=== PATIENT | male | born 1935 | race Caucasian/White ===

== ENCOUNTER 2017-01-05 07:38 | Observation (INO) | payer OTHER ==
[2017-01-05] VITALS (8 sets, daily range): BP systolic 126–154; BP diastolic 66–74; PULSE 61–85; TEMP 36.7–37; O2SAT 95–99; Ht 177.8 cm; Wt 94.3 kg
[~2017-01-05] VITALS: Ht 177.8 cm; Wt 94.3 kg
[~2017-01-05 07:38] MED LIST: AMLO10TA2 PO; ASPCH81 PO; ATOR-24 PO; CHOL100010 PO; DONE10TA12 PO; FELO5TAB PO; LEVO50TA6 PO; LISI-725 PO; NTRGSL/4 UT; TAMS0.4C38 PO; TPRSR25 PO
[2017-01-05] MEDS ORDERED: ASPIRIN 81 MG CHEW PO STA (08:05)
[2017-01-05] MEDS ORDERED: NITROGLYCERIN 0.4 MG SL PER TAB CHARGE SL PRN ×3 (08:15→13:45)
[2017-01-05 08:22] LABS: BASO % 0.9 %; BASO ABS # 0.06 K/uL (0-0.2); COMPLETE YES; HEMATOCRIT 42.1 % (42-52); MEAN CELL VOLUME 90.3 fL (80-100); MEAN CORPUSCULAR HEMOGLOBIN 30.7 pg (25-34); MEAN PLATELET VOLUME 9.5 fL (7.4-10.4); MONO % 10.6 %; NEUT % 51.5 %; PLATELET COUNT 196 K/uL (130-400); RED BLOOD COUNT 4.66 M/uL (4.7-6.1); WHITE BLOOD COUNT 6.44 K/uL (4.8-10.8)
--- NOTE | 2017-01-05 08:27 | DIAGNOSTIC IMAGING REPORT ---
CHEST ONE VIEW PORTABLE CLINICAL HISTORY: CHEST PAIN dyspnea COMPARISON STUDY: 07/22/2015 FINDINGS: Small hilar hernia. Bipolar cardiac pacemaker. Lungs are clear. Diaphragms smooth. IMPRESSION: No acute process. Electronically signed by: Tristen Jerome M.D. 01/05/2017 8:26 AM Dictated Date/Time: 01/05/2017 8:25 AM
[2017-01-05] MEDS ORDERED: ONDANSETRON INJ 2 MG/ML 2 ML VIAL IV STA ×2 (08:41→09:41)
[2017-01-05 08:43] LABS: ALT/SGPT 45 U/L (12-78); BLOOD UREA NITROGEN 14 mg/dl (7-18); BUN/CREATININE RATIO 10.6 (10-20); CARBON DIOXIDE 27 mmol/L (21-32); CHLORIDE 108 mmol/L (98-107); GLUCOSE 147 mg/dl (70-99); POTASSIUM 4.1 mmol/L (3.5-5.1); SODIUM 141 mmol/L (136-145)
[2017-01-05 08:45] LABS: ALKALINE PHOSPHATASE 99 U/L (45-117); AST/SGOT 31 U/L (15-37); CKMB/CK RATIO 1.7 (0-3.0)
[2017-01-05] MEDS ORDERED: FENTANYL CITRATE INJ 50 MCG/1 ML 2 ML VIAL IV ONE (08:45)
[2017-01-05 08:47] LABS: PROTHROMBIN TIME (PATIENT) 10.5 SECONDS (9.0-12.0)
[2017-01-05] MEDS ORDERED: ASPI81TA28 PO (08:50)
[2017-01-05] MEDS ORDERED: MEMA10TA PO (08:50)
[2017-01-05] MEDS ORDERED: CHOL100010 PO (08:50)
[2017-01-05] MEDS ORDERED: METO25TA3 PO (08:50)
[2017-01-05] MEDS ORDERED: LEVE250T PO (08:50)
[2017-01-05] MEDS ORDERED: ACETAMINOPHEN 325 MG TAB PO PRN (11:30)
[2017-01-05] MEDS ORDERED: ONDANSETRON INJ 2 MG/ML 2 ML VIAL IV PRN (11:30)
[2017-01-05] MEDS ORDERED: FINA5TAB PO (11:40)
[2017-01-05] MEDS ORDERED: TAMS0.4C38 PO (11:40)
--- NOTE | 2017-01-05 12:45 | DIAGNOSTIC IMAGING REPORT ---
Venous Doppler left leg LEFT VENOUS DOPP LOWER EXT UNILAT CLINICAL HISTORY: r/o DVT pain. Edema. TECHNIQUE: Venous Doppler COMPARISON STUDY: None FINDINGS: Normal study IMPRESSION: Normal study Electronically signed by: Tristen Jerome M.D. 01/05/2017 12:43 PM Dictated Date/Time: 01/05/2017 12:43 PM
[2017-01-05] MEDS ORDERED: IV FLUIDS COMPLETED PRN (13:15)
[2017-01-05] MEDS: HEPARIN SOD 5000 UNIT/0.5 ML CARP SQ SCH ×2 (14:13→21:11)
--- NOTE | 2017-01-05 14:58 | DIAGNOSTIC IMAGING REPORT ---
NUCLEAR MEDICINE VENTILATION/PERFUSION SCAN CLINICAL HISTORY: Chest pain COMPARISON: Dyspnea TECHNIQUE: For the ventilation portion of this exam, 29.8 mCi of DTPA was inhaled at 220. Immediately following inhalation, imaging of the chest was carried out in the anterior, posterior, left lateral, right lateral, LPO, RPO, [place] and JUDD projections. For the perfusion portion of exam, 5.5 mCi of technetium 99m MAA was injected IV at 242. Immediately following injection, imaging of the chest was carried out in the same projections. FINDINGS: Subtle in homogeneity of perfusion of both hemithoraces. Similar in homogeneity of the aerosol component of the study. No major ventilation perfusion mismatch. IMPRESSION: Low probability of pulmonary embolus Electronically signed by: Tristen Jerome M.D. 01/05/2017 2:56 PM Dictated Date/Time: 01/05/2017 2:55 PM
[2017-01-05] MEDS: NITROGLYCERIN OINT 2% 1GM PACKET EXT SCH ×2 (15:23→20:02)
--- NOTE | 2017-01-05 15:31 | CARDIOLOGY CONSULTATION ---
DATE OF CONSULTATION: 01/05/2017 DATE OF CONSULTATION: 01/05/2017. REFERRING PHYSICIAN: Khadra Day PA-C. PRIMARY CARE PHYSICIAN: Dr. Jordana Hopkins. INDICATIONS: Chest pain. HISTORY OF PRESENT ILLNESS: The patient is an 81-year-old male with cardiac history. 1. Atherosclerotic coronary artery disease with prior coronary interventions of the right coronary artery with subsequent followup notable for chronic right coronary occlusion, moderate diffuse coronary atherosclerosis by remote cardiac catheterization. 2. 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 3. Stable class 1-2 angina pectoris. 4. Hypertension. 5. Hyperlipidemia. 6. 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 The patient presents now accompanied by his who noted patient had awakened him from sleep this morning complaining of chest pressure, pain and discomfort. Symptoms were sharp in the left axillary area but radiated to the shoulder and throat. In light of complaints, she was referred for ER evaluation. The patient notes low grade chart pain currently. He notes in the Emergency Room initial EKGs revealed no acute changes. Initial point of care troponin was negative. The nitroglycerin and initial therapies were unhelpful in managing symptoms, he received a single dose of fentanyl shortly afterwards became acutely hypotensive and diaphoretic. Symptoms then passed, he feels currently fine with a mild jabbing pain in his left shoulder. He has little recollection of the pain this morning though was able to get information from . Notes no melena, hematochezia, dysuria or hematuria. Notes no headache or visual changes. He is being managed for presumed seizure disorder, most recently begun on Keppra as an outpatient on 11/29/2016. Notes no recent travel in the last 1-2 months. Notes no fevers, chills or productive cough. Has had some mild increase in lower extremity edema. Appetite and weight are stable. Blood pressures have been running higher. It was high at home during symptoms this morning. REVIEW OF SYSTEMS: Otherwise negative. ALLERGIES: IODINE CONTRAST. MEDICATIONS: Prior to hospitalization were amlodipine 5 mg at bedtime, aspirin 81 mg p.o. daily, atorvastatin 40 daily, vitamin D 1000 units at bedtime, Aricept 10 mg at bedtime, those start 5 mg at bedtime, Keppra 500 mg b.i.d., levothyroxine 50 mcg p.o. every day, Zestril 20 mg p.o. at bedtime, Namenda 10 mg b.i.d., metoprolol succinate 25 mg at bedtime, Flomax 0.4 mg at bedtime. PAST SURGICAL HISTORY: Notable for inguinal hernia repair, pacemaker insertion as described. FAMILY HISTORY: Notable for heart disease in mother, stroke in father. 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 PHYSICAL EXAMINATION: GENERAL: The patient is a pleasant, age appropriate male currently denying any acute distress. VITAL SIGNS: Heart rate is 86, blood pressure is 147/72. HEAD, EYES, EARS, NOSE, AND THROAT: Normocephalic, atraumatic. NECK: Thick neck, but there is no jugular venous distention. No carotid bruits. LUNGS: Clear to auscultation. CARDIOVASCULAR EXAMINATION: Regular with normal S1, S2. There is no audible murmur, gallop or rub. ABDOMEN: Soft, nontender. There is no palpable hepatosplenomegaly. There is no hepatojugular reflux. EXTREMITIES: Without cyanosis or clubbing. There is no peripheral edema. NEUROLOGIC: The patient is pleasant, answering questions appropriately, though has little recollection about complete details recently. LABORATORY DATA: Sodium is 141, potassium is 4.1, chloride is 108, bicarbonate is 27, BUN is 14, creatinine is 1.3, glucose is 147. Troponin I was negative on 2 serial testings at 8:14 and 10:28. Albumin is 3.7. Lipase is mildly elevated at 4.17. D-dimer is elevated at 1570. Chest x-ray reveals no infiltrate or edema. Initial lower extremity ultrasound was free of thrombus. DATA: EKG on initial presentation demonstrates atrial paced rhythm with T-wave inversion in anterolateral leads, significantly abnormal on initial EKG and serial EKGs though similar to prior outpatient tracings not reflecting acute changes. IMPRESSION: An 81-year-old male with known history of diffuse coronary disease and prior chronic right coronary occlusion by remote cardiac catheterization and history stable angina pectoris, hypertension. Past symptomatic bradycardia with pacemaker in place as well as recently diagnosed seizure disorder superimposed on mild dementia. The patient presents now after chest pain, pressure, awakening from sleep this morning. Symptoms were associated with hypertension at home, though blood pressures have improved now. He did receive a dose of fentanyl for symptoms in the ER with profound hypotension and response. He is on a substantial amount of medications administered nocturnally including Aricept, Proscar, Keppra, Namenda, tamsulosin. PLAN: Will be to continue current medications with the addition of topical nitrates, serial enzymes have been ordered as well as echocardiogram which will be reviewed. Currently, the patient appears asymptomatic other than a sharp jab in the left shoulder with movement. Ongoing workup and process for possible thromboembolic concerns. Will follow patient in the hospital.
[2017-01-05 15:43] LABS: CKMB/CK RATIO 1.6 (0-3.0)
--- NOTE | 2017-01-05 15:44 | EMERGENCY ROOM VISIT NOTE ---
History Report prepared by Ced: Simon Gardner Under the Supervision of: Dr. Edmund Cage M.D. First contact with patient: 07:48 Chief Complaint: BACK PAIN Stated Complaint: PAIN IN SIDE/SHOULDER, HIGH BLOOD PRESSURE History of Present Illness The patient is an 81 year old male who presents to the Emergency Room with complaints of constant left side pain starting this morning which woke him up. He currently rates his discomfort as a 5/10 in severity. The patient states that he woke up from a throbbing pain which has subsided into an ache. He states that this pain is more located around the armpit area. The patient additionally states that he is having some numbness in his left hand. The patient denies any right sided pain, and he states that it is not worsened with movement, breathing, or touching it. The patient's states that the patient does not sleep on his left side due to an accident when he was younger. The additionally states that the patient had high blood pressure this morning around 0530, and it was around 177/96 with a pulse in the 80s. She states that the patient is on blood pressure medication, and he took it this morning, however he did not take any pain medication or nitroglycerin. The patient denies any recent issues during walking or exercising. Pt denies LOC, headache, fevers, chills, diaphoresis, visual changes, neck pain, chest pain, breathing difficulties, nausea, vomiting, abdominal pain, back pain, melena, hematochezia , urinary symptoms, weakness, lymphadenopathy, rash, or other complaints. Source of History: patient, spouse/significant other Onset: this morning Position: other (left side into his shoulder) Symptom Intensity: 5/10 Quality: ache Timing: constant Associated Symptoms: + numbness (left hand) Review of Systems See HPI for pertinent positives and negatives. A total of ten systems were reviewed and were otherwise negative. Past Medical & Surgical Medical Problems: (1) CAD (coronary artery disease) (2) Chest pain (3) CKD (chronic kidney disease), stage III (4) Dyslipidemia (5) GERD (gastroesophageal reflux disease) (6) Hypertension (7) Seizure disorder (8) Sinus node dysfunction (9) Urinary problem Surgical Problems: (1) H/O coronary artery balloon dilation (2) H/O inguinal hernia repair (3) S/P placement of cardiac pacemaker Family History Hypertension Lung disease Social History Smoking Status: Never Smoker Marital Status: Occupation Status: retired Current/Historical Medications Scheduled Amlodipine Besylate (Norvasc), 5 MG PO HS Aspirin (Aspirin Ec), 81 MG PO HS Atorvastatin (Lipitor), 40 MG PO HS Cholecalciferol (Vitamin D), 1,000 UNITS PO HS Donepezil Hydrochloride (Aricept), 10 MG PO HS Finasteride (Proscar), 5 MG PO HS Levetiracetam (Keppra), 500 MG PO BID Levothyroxine Sodium (Levothyroxine Sodium), 50 MCG PO DAILY Lisinopril (Zestril), 20 MG PO HS Memantine Hcl (Namenda), 10 MG PO BID Metoprolol Succinate (Toprol Xl), 25 MG PO HS Tamsulosin Hcl (Flomax), 0.4 MG PO HS Scheduled PRN Nitroglycerin (Nitrostat), 0.4 MG UT for Chest Pain Allergies Coded Allergies: Iodinated Diagnostic Agents (Verified Allergy, Unknown, `, 01/05/17) Physical Exam Vital Signs Date Time Temp Pulse Resp B/P Pulse Ox O2 Delivery O2 Flow Rate FiO2 01/05/17 11:15 62 20 152/83 97 Nasal Cannula 2.0 01/05/17 11:00 60 20 144/78 98 Nasal Cannula 2.0 01/05/17 10:52 60 20 148/95 99 Nasal Cannula 2.0 01/05/17 10:45 60 20 150/79 98 Nasal Cannula 2.0 01/05/17 10:30 60 20 148/82 98 Nasal Cannula 2.0 01/05/17 10:15 60 21 145/88 99 Nasal Cannula 2.0 01/05/17 10:11 99 Nasal Cannula 2.0 01/05/17 10:07 60 18 139/79 99 01/05/17 10:01 60 18 123/70 96 Room Air 01/05/17 09:45 60 26 111/53 93 Room Air 01/05/17 09:40 62 14 103/56 94 Room Air 01/05/17 09:31 68 18 85/46 95 Room Air 01/05/17 08:58 60 16 120/65 96 Room Air 01/05/17 08:37 74 18 111/65 93 Room Air 01/05/17 08:27 64 19 133/80 95 Room Air 01/05/17 08:16 69 01/05/17 08:04 60 14 162/88 98 Room Air 01/05/17 07:44 36.4 85 16 147/81 95 Room Air 01/05/17 07:39 Room Air Physical Exam GENERAL: Awake, alert, well-appearing, in no distress HENT: Normocephalic, atraumatic. Oropharynx unremarkable. EYES: Normal conjunctiva. Sclera non-icteric. NECK: Supple. No nuchal rigidity. FROM. No JVD. RESPIRATORY: Clear to auscultation. CARDIAC: Regular rate, normal rhythm. Extremities warm and well perfused. Pulses equal. ABDOMEN: Soft, non-distended. No tenderness to palpation. No rebound or guarding. No masses. RECTAL: Deferred. MUSCULOSKELETAL: Chest examination reveals no tenderness. The back is symmetrical on inspection without obvious abnormality. There is no CVA tenderness to palpation. No joint edema. LOWER EXTREMITIES: Trace lower extremity edema. Calves are equal size bilaterally and non-tender. No discoloration. NEURO: Normal sensorium. No sensory or motor deficits noted. SKIN: No rash or jaundice noted. Medical Decision & Procedures ER Provider Diagnostic Interpretation: X-ray: Per my interpretation, radiologist review. CHEST ONE VIEW PORTABLE CLINICAL HISTORY: CHEST PAIN dyspnea COMPARISON STUDY: 07/22/2015 FINDINGS: Small hilar hernia. Bipolar cardiac pacemaker. Lungs are clear. Diaphragms smooth. IMPRESSION: No acute process. Electronically signed by: Tristen Jerome M.D. 01/05/2017 8:26 AM Dictated Date/Time: 01/05/2017 8:25 AM Laboratory Results 01/05/17 08:10 Red Blood Count 4.66, Mean Corpuscular Volume 90.3, Mean Corpuscular Hemoglobin 30.7, Mean Corpuscular Hemoglobin Concent 34.0, Mean Platelet Volume 9.5, Neutrophils (%) (Auto) 51.5, Lymphocytes (%) (Auto) 28.0, Monocytes (%) (Auto) 10.6, Eosinophils (%) (Auto) 9.0, Basophils (%) (Auto) 0.9, Neutrophils # (Auto ) 3.32, Lymphocytes # (Auto) 1.80, Monocytes # (Auto) 0.68, Eosinophils # (Auto ) 0.58, Basophils # (Auto) 0.06 01/05/17 08:10 Test 01/05/17 08:10 01/05/17 10:28 White Blood Count 6.44 K/uL (4.8-10.8) Red Blood Count 4.66 M/uL (4.7-6.1) Hemoglobin 14.3 g/dL (14.0-18.0) Hematocrit 42.1 % (42-52) Mean Corpuscular Volume 90.3 fL (80-100) Mean Corpuscular Hemoglobin 30.7 pg (25-34) Mean Corpuscular Hemoglobin Concent 34.0 g/dl (32-36) Platelet Count 196 K/uL (130-400) Mean Platelet Volume 9.5 fL (7.4-10.4) Neutrophils (%) (Auto) 51.5 % Lymphocytes (%) (Auto) 28.0 % Monocytes (%) (Auto) 10.6 % Eosinophils (%) (Auto) 9.0 % Basophils (%) (Auto) 0.9 % Neutrophils # (Auto) 3.32 K/uL (1.4-6.5) Lymphocytes # (Auto) 1.80 K/uL (1.2-3.4) Monocytes # (Auto) 0.68 K/uL (0.11-0.59) Eosinophils # (Auto) 0.58 K/uL (0-0.5) Basophils # (Auto) 0.06 K/uL (0-0.2) RDW Standard Deviation 45.7 fL (36.4-46.3) RDW Coefficient of Variation 13.9 % (11.5-14.5) Immature Granulocyte % (Auto) 0.0 % Immature Granulocyte # (Auto) 0.00 K/uL (0.00-0.02) Prothrombin Time 10.5 SECONDS (9.0-12.0) Prothromb Time International Ratio 1.0 (0.9-1.1) Activated Partial Thromboplast Time 25.2 SECONDS (21.0-31.0) Partial Thromboplastin Ratio 1.0 D-Dimer 1570 ug/L FEU (0-500) Anion Gap 6.0 mmol/L (3-11) Est Creatinine Clear Calc Drug Dose 52.1 ml/min Estimated GFR () 59.3 Estimated GFR (Non- 51.2 BUN/Creatinine Ratio 10.6 (10-20) Calcium Level 9.0 mg/dl (8.5-10.1) Total Bilirubin 0.3 mg/dl (0.2-1) Direct Bilirubin < 0.1 mg/dl (0-0.2) Aspartate Amino Transf (AST/SGOT) 31 U/L (15-37) Alanine Aminotransferase (ALT/SGPT) 45 U/L (12-78) Alkaline Phosphatase 99 U/L (45-117) Total Protein 7.1 gm/dl (6.4-8.2) Albumin 3.7 gm/dl (3.4-5.0) Lipase 417 U/L (73-393) Bedside D-Dimer > 450 ng/mlFEU (0-450) Bedside Troponin I 0.000 ng/ml (0-0.045) Laboratory results reviewed by me Medications Administered Medications (Trade) Dose Ordered Sig/Tiffani Route Start Time Stop Time Status Last Admin Dose Admin Aspirin (Aspirin Chew) 324 mg NOW STAT PO 01/05/17 08:05 01/05/17 08:06 DC 01/05/17 08:29 324 MG Nitroglycerin (Nitrostat Tab) 0.4 mg Q5M PRN SL 01/05/17 08:15 01/05/17 13:23 DC 01/05/17 08:30 0.4 MG Fentanyl Citrate (Fentanyl Inj) 50 mcg NOW ONCE IV 01/05/17 08:45 01/05/17 08:47 DC 01/05/17 08:55 50 MCG Ondansetron HCl (Zofran Inj) 4 mg NOW STAT IV 01/05/17 08:41 01/05/17 08:42 DC 01/05/17 08:52 4 MG Ondansetron HCl (Zofran Inj) 4 mg NOW STAT IV 01/05/17 09:41 01/05/17 09:43 DC 01/05/17 09:46 4 MG ECG Indication: other (left sided pain into his shoulder) Rate (beats per minute): 67 Rhythm: other (Atrial paced) Findings: Q waves (Septal), T-wave inversion (Anterolateral) Comparison ECG Date: 07/21/15 Change: no significant change Change: Repeat EKG shows: Atrial Paced rhythm at 60 bpm. Septal Q waves. Anterolateral T wave inversion which are slightly more pronounced than the first. ED Course 0754: The patient was evaluated in room A11. A complete history and physical exam was performed. 0805: Aspirin Chew 324 mg PO 0815: Nitroglycerin 0.4mg SL 0841: Zofran Inj 4mg IV 0845: Fentanyl Inj 50mcg IV 0941: Zofran Inj 4mg IV 0943: Upon reevaluation, the patient was nauseated, and his blood pressure dropped. 1037: I discussed the patient's case with Khadra Day PA-C. She is going to evaluate the patient for further treatment Medical Decision Triage Nursing notes reviewed. The patient's presentation and history were concerning for left chest and shoulder and back pain. ETiologies such as cardiac ischemia, aortic dissection, pulmonary embolism, pneumonia, pneumothorax, musculoskeletal, infections, gastrointestinal, as well as others were entertained. The patient was evaluated. His ECG was nonischemic. CBC, cardiac markers and chemistries were unremarkable. The patient did have a negative troponin 2. ECG was nonischemic 2. He had an episode where he felt nauseated and flushed, almost vagal like and had some low blood pressure readings. He was treated with Zofran and did feel better. The patient had a d-dimer checked and this was elevated. He was given nitroglycerin and aspirin. He did not have any relief with the nitroglycerin. The patient was treated with fentanyl and Zofran. Consultation was made with internal medicine for further evaluation and management. Additional workup regarding the positive d-dimer will be pursued by internal medicine. The chart was completed utilizing [employer] Speech voice recognition software. Grammatical errors, random word insertions, pronoun errors, and incomplete sentences are an occasional consequence of this system due to software limitations, ambient noise, and hardware issues. Any formal questions or concerns about the content, text, or information contained within the body of this dictation should be directly addressed to the physician for clarification. Consults Time Called: [phone] Consulting Physician: Khadra Day PA-C Returned Call: [phone] I discussed the patient's case with Khadra Day PA-C. She is going to evaluate the patient for further treatment Impression Primary Impression: Left sided chest pain Scribe Attestation The scribe's documentation has been prepared under my direction and personally reviewed by me in its entirety. I confirm that the note above accurately reflects all work, treatment, procedures, and medical decision making performed by me. Departure Information Dispostion Being Evaluated By Hospitalist Referrals Jordana Hopkins DO (PCP)
[2017-01-05] MEDS ORDERED: TRAMADOL HCL 50 MG TAB PO PRN (16:45)
[2017-01-05] MEDS: MEMANTINE 10 MG TAB PO SCH (20:16)
[2017-01-05] MEDS: LEVETIRACETAM 250 MG TAB PO SCH (20:17)
--- NOTE | 2017-01-05 20:54 | History and Physical ---
History & Physical Date & Time of Service: Jan 05, 2017 at 11:49 Chief Complaint: Pain In Side/Shoulder, High Blood Pressure Primary Care Physician: Jordana Hopkins DO History of Present Illness Source: patient, hospital records This is an 81 year old male with PMH of CAD s/p PCI to right coronary with chronic right coronary occlusion, hx symptomatic bradycardia s/p pacemaker, HTN , HL, dementia, seizure disorder, who presents to the ED with left sided chest pain. states patient awoke with chest pain this morning at 5:30 am. Pain is located in left chest radiating to left lateral ribs and left shoulder. Has not exerted himself. He did not take nitro at home. In the ED patient was given nitro tab without improvement. He was given dose of Fentanyl which helped the pain, but still feeling mild pain in his L lateral rib area. Approximately 30 minutes after Fentanyl patient became nauseous, pale, diaphoretic, and BP dropped to 70s systolic at that time. BP has improved. No longer feeling nauseous after being treated with Zofran. At time of my exam patient c/o SOB for past 1.5 hour which was resolved when I rechecked him. reports new onset of unilateral LLE edema for past few days.Pt's sats were stable on RA and is currently on 3L NC. Patient was in his usual state of health yesterday. He had been able to ambulate around the block without any dyspnea. Pt denies dizziness, fever, chills, URI sx, cough, palpitations, GAR, abdominal pain, reflux, vomiting, diarrhea, urinary changes, calf pain, abnormal bleeding, anxiety, recent seizure. No recent heavy lifting. No recent travel, surgery, immobilization. No hx of VTE. Past Medical/Surgical History Medical Problems: (1) CAD (coronary artery disease) Status: Chronic (2) CKD (chronic kidney disease), stage III Status: Chronic (3) Dyslipidemia Status: Chronic (4) GERD (gastroesophageal reflux disease) Status: Chronic (5) Hypertension Status: Chronic (6) Seizure disorder Status: Chronic (7) Sinus node dysfunction Status: Chronic (8) Urinary problem Status: Chronic Surgical Problems: (1) H/O coronary artery balloon dilation Status: Chronic (2) H/O inguinal hernia repair Status: Chronic (3) S/P placement of cardiac pacemaker Status: Chronic Family History Hypertension Lung disease No family hx of VTE. Social History Smoking Status: Never Smoker Alcohol Use: occasionally Drug Use: none Marital Status: Housing status: lives with family Occupational Status: retired Immunizations History of Influenza Vaccine: Yes Influenza Vaccine Date: Jul 06, 2010 History of Tetanus Vaccine?: Yes History of Pneumococcal: Yes Pneumococcal Date: Jul 06, 2010 History of Hepatitis B Vaccine: No Multi-Drug Resistant Organisms History of MDRO: No Allergies Coded Allergies: Iodinated Diagnostic Agents (Verified Allergy, Unknown, `, 01/05/17) Home Medications Scheduled Amlodipine Besylate (Norvasc), 5 MG PO HS Aspirin (Aspirin Ec), 81 MG PO HS Atorvastatin (Lipitor), 40 MG PO HS Cholecalciferol (Vitamin D), 1,000 UNITS PO HS Donepezil Hydrochloride (Aricept), 10 MG PO HS Finasteride (Proscar), 5 MG PO HS Isosorbide Mononitrate (Isosorbide Mononitrate ER), 30 MG PO QAM Levetiracetam (Keppra), 500 MG PO BID Levothyroxine Sodium (Levothyroxine Sodium), 50 MCG PO DAILY Lisinopril (Zestril), 20 MG PO HS Memantine Hcl (Namenda), 10 MG PO BID Metoprolol Succinate (Toprol Xl), 25 MG PO HS Tamsulosin Hcl (Flomax), 0.4 MG PO HS Scheduled PRN Nitroglycerin (Nitrostat), 0.4 MG UT for Chest Pain Review of Systems Ten point ROS performed with pertinent positives and negatives noted in HPI. Physical Exam Vital Signs Date Time Temp Pulse Resp B/P Pulse Ox O2 Delivery O2 Flow Rate FiO2 01/05/17 10:52 60 20 148/95 99 Nasal Cannula 2.0 01/05/17 10:45 60 20 150/79 98 Nasal Cannula 2.0 01/05/17 10:30 60 20 148/82 98 Nasal Cannula 2.0 01/05/17 10:15 60 21 145/88 99 Nasal Cannula 2.0 01/05/17 10:11 99 Nasal Cannula 2.0 01/05/17 10:07 60 18 139/79 99 01/05/17 10:01 60 18 123/70 96 Room Air 01/05/17 09:45 60 26 111/53 93 Room Air 01/05/17 09:40 62 14 103/56 94 Room Air 01/05/17 09:31 68 18 85/46 95 Room Air 01/05/17 08:58 60 16 120/65 96 Room Air 01/05/17 08:37 74 18 111/65 93 Room Air 01/05/17 08:27 64 19 133/80 95 Room Air 01/05/17 08:16 69 01/05/17 08:04 60 14 162/88 98 Room Air 01/05/17 07:44 36.4 85 16 147/81 95 Room Air 01/05/17 07:39 Room Air General Appearance: WD/WN, + pertinent finding (alert cooperative, elderly male , lying in bed, quiet, appears uncomfortable, not in respiratory distress, at bedside) Head: normocephalic, atraumatic Eyes: normal inspection, PERRL, EOMI ENT: hearing grossly normal, pharynx normal Neck: supple, no JVD, no carotid bruits, trachea midline Respiratory/Chest: chest non-tender, lungs clear, normal breath sounds, no respiratory distress, no accessory muscle use, + pertinent finding (speaks in full sentences) Cardiovascular: regular rate, rhythm, no murmur Abdomen/GI: normal bowel sounds, non tender, soft Extremities/Musculoskelatal: no calf tenderness, + pertinent finding (1+ pitting pretibial edema LLE. RLE no edema. L shoulder nontender. no pain on L shoulder ROM.) Neurologic/Psych: alert, normal mood/affect, oriented x 3, + pertinent finding (grossly nonfocal) Skin: normal color, warm/dry, no rash (no rash on the chest) Diagnostics Laboratory Results Results Past 24 Hours Test 01/05/17 08:10 01/05/17 08:14 01/05/17 10:28 Range/Units White Blood Count 6.44 4.8-10.8 K/uL Red Blood Count 4.66 4.7-6.1 M/uL Hemoglobin 14.3 14.0-18.0 g/dL Hematocrit 42.1 42-52 % Mean Corpuscular Volume 90.3 80-100 fL Mean Corpuscular Hemoglobin 30.7 25-34 pg Mean Corpuscular Hemoglobin Concent 34.0 32-36 g/dl Platelet Count 196 130-400 K/uL Mean Platelet Volume 9.5 7.4-10.4 fL Neutrophils (%) (Auto) 51.5 % Lymphocytes (%) (Auto) 28.0 % Monocytes (%) (Auto) 10.6 % Eosinophils (%) (Auto) 9.0 % Basophils (%) (Auto) 0.9 % Neutrophils # (Auto) 3.32 1.4-6.5 K/uL Lymphocytes # (Auto) 1.80 1.2-3.4 K/uL Monocytes # (Auto) 0.68 0.11-0.59 K/uL Eosinophils # (Auto) 0.58 0-0.5 K/uL Basophils # (Auto) 0.06 0-0.2 K/uL RDW Standard Deviation 45.7 36.4-46.3 fL RDW Coefficient of Variation 13.9 11.5-14.5 % Immature Granulocyte % (Auto) 0.0 % Immature Granulocyte # (Auto) 0.00 0.00-0.02 K/uL Prothrombin Time 10.5 9.0-12.0 SECONDS Prothromb Time International Ratio 1.0 0.9-1.1 Activated Partial Thromboplast Time 25.2 21.0-31.0 SECONDS Partial Thromboplastin Ratio 1.0 D-Dimer 1570 0-500 ug/L FEU Sodium Level 141 136-145 mmol/L Potassium Level 4.1 3.5-5.1 mmol/L Chloride Level 108 98-107 mmol/L Carbon Dioxide Level 27 21-32 mmol/L Anion Gap 6.0 3-11 mmol/L Blood Urea Nitrogen 14 7-18 mg/dl Creatinine 1.30 0.60-1.40 mg/dl Est Creatinine Clear Calc Drug Dose 52.1 ml/min Estimated GFR () 59.3 Estimated GFR (Non- 51.2 BUN/Creatinine Ratio 10.6 10-20 Random Glucose 147 70-99 mg/dl Calcium Level 9.0 8.5-10.1 mg/dl Total Bilirubin 0.3 0.2-1 mg/dl Direct Bilirubin < 0.1 0-0.2 mg/dl Aspartate Amino Transf (AST/SGOT) 31 15-37 U/L Alanine Aminotransferase (ALT/SGPT) 45 12-78 U/L Alkaline Phosphatase 99 45-117 U/L Total Creatine Kinase 92 39-308 U/L Creatine Kinase MB 1.6 0.5-3.6 ng/ml Creatine Kinase MB Ratio 1.7 0-3.0 Total Protein 7.1 6.4-8.2 gm/dl Albumin 3.7 3.4-5.0 gm/dl Lipase 417 73-393 U/L Bedside Troponin I 0.000 0.000 0-0.045 ng/ml Bedside D-Dimer > 450 0-450 ng/mlFEU Diagnostic Radiology CHEST ONE VIEW PORTABLE CLINICAL HISTORY: CHEST PAIN dyspnea COMPARISON STUDY: 07/22/2015 FINDINGS: Small hilar hernia. Bipolar cardiac pacemaker. Lungs are clear. Diaphragms smooth. IMPRESSION: No acute process. Venous Doppler left leg LEFT VENOUS DOPP LOWER EXT UNILAT CLINICAL HISTORY: r/o DVT pain. Edema. TECHNIQUE: Venous Doppler COMPARISON STUDY: None FINDINGS: Normal study IMPRESSION: Normal study NUCLEAR MEDICINE VENTILATION/PERFUSION SCAN CLINICAL HISTORY: Chest pain COMPARISON: Dyspnea TECHNIQUE: For the ventilation portion of this exam, 29.8 mCi of DTPA was inhaled at 220. Immediately following inhalation, imaging of the chest was carried out in the anterior, posterior, left lateral, right lateral, LPO, RPO, ERWIN and JUDD projections. For the perfusion portion of exam, 5.5 mCi of technetium 99m MAA was injected IV at 242. Immediately following injection, imaging of the chest was carried out in the same projections. FINDINGS: Subtle in homogeneity of perfusion of both hemithoraces. Similar in homogeneity of the aerosol component of the study. No major ventilation perfusion mismatch. IMPRESSION: Low probability of pulmonary embolus EKG atrial paced rhythm, anterolateral T wave inversion, no significant change from prior outpatient EKG Impression Assessment and Plan CHEST PAIN Rule out ACS in patient with hx of CAD s/p PCI to right coronary with chronic right coronary occlusion Rule out PE given SOB, unilateral LE edema, elevated d dimer- LLE doppler neg for DVT; VQ scan done due to contrast allergy- Low probability PE Initial POC troponin negative EKG- chronic anterolateral T wave abnormality Given 4 baby ASA in ER Add nitro paste Continue aspirin, statin, beta david, CHONG-I Trend serial cardiac enzymes Check echo Consult cardiology; discussed with Dr. Coelho; appreciate input HX OF HYPERTENSION EPISODE OF HYPOTENSION BP dropped to 70s systolic in ER after Fentanyl -> spontaneously normalized Hold amlodipine Continue lisinopril and metoprolol succinate Nitro paste added SINUS NODE DYSFUNCTION S/p pacemaker CKD STAGE III Creat is 1.3; baseline 1.1 Monitor renal function PRESUMED SEIZURE DISORDER No recent seizure activity Continue Keppra DEMENTIA Continue Aricept and Namenda HYPOTHYROIDISM Continue levothyroxine BPH Continue finasteride and tamsulosin DVT PROPHYLAXIS Heparin SQ CODE STATUS Full code per my discussion with the patient and at bedside. Has living will. DISPOSITION Lives at home w/ Follows with Dr. Hopkins for primary care Patient seen in collaboration with Dr. Vallecillo. Please see his addendum. ATTENDING ADDENDUM delayed entry date of service 01/05/17 care coordinated with KRISTAN Day please refer to her notes for full details, I agree with her notes patient seen and examined, records reviewed by myself as well on exam, patient seen resting in bed, comfortable in good spirits at bedside chest pain free denies dyspnea, dizziness, nausea no leg pain no other symptoms VS noted and reviewed oriented x3 , not in distress, speaks in sentences with no effort nor accessory muscle use normal rate, regular rhythm, no murmurs clear breath sounds bilaterally non distended, soft, nontender no bipedal edema, erythema, warmth no neuro deficits trop negative EKG no signs of acute ischemia ASSESSMENT/PLAN> CHEST PAIN R/O ACS serial cardiac markers echo continue aspirin, betablocker, statin cardiology consulted EPISODE OF HYPOTENSION hold amlodipine continue usual BP meds other diagnoses and plan of care as per KRISTAN Day's notes Chris Vallecillo MD VTE Prophylaxis VTE Risk Assessment Done? Y/N: Yes Risk Level: Moderate
[2017-01-05] MEDS ORDERED: METOPROLOL SUCC 25MG EXT REL TAB PO SCH (21:00)
[2017-01-05] MEDS ORDERED: LISINOPRIL 20 MG TAB PO SCH (21:00)
[2017-01-05] MEDS ORDERED: DONEPEZIL HCL 10 MG TAB PO SCH (21:00)
[2017-01-05] MEDS ORDERED: FINASTERIDE 5 MG TAB PO SCH (21:00)
[2017-01-05] MEDS ORDERED: ASPIRIN 81 MG ECTAB PO SCH (21:00)
[2017-01-05] MEDS ORDERED: TAMSULOSIN HCL 0.4 MG CAP PO SCH (21:00)
[2017-01-05] MEDS ORDERED: ATORVASTATIN 20 MG TAB PO SCH (21:00)
[2017-01-05] MEDS ORDERED: CHOLECALCIFEROL 1000 INTER.UNIT TAB PO SCH (21:00)
[2017-01-05 21:26] LABS: CKMB/CK RATIO 1.6 (0-3.0)
[2017-01-06] MEDS: NITROGLYCERIN OINT 2% 1GM PACKET EXT SCH ×2 (02:31→09:15)
[2017-01-06 04:00] VITALS: BP 128/71; PULSE 69; TEMP 36.6; O2SAT 95
[2017-01-06] MEDS ORDERED: LEVOTHYROXINE 50 MCG TAB PO SCH (06:00)
[2017-01-06] MEDS: HEPARIN SOD 5000 UNIT/0.5 ML CARP SQ SCH (06:21)
[2017-01-06 07:27] VITALS: BP 131/68; PULSE 66; TEMP 36.5; O2SAT 96
[2017-01-06] MEDS: LEVETIRACETAM 250 MG TAB PO SCH (09:14)
[2017-01-06] MEDS: MEMANTINE 10 MG TAB PO SCH (09:14)
[2017-01-06] MEDS ORDERED: ISOSORBIDE MONONITRATE 30 MG TABCR PO ONE (11:15)
--- NOTE | 2017-01-06 11:17 | Cardiology Follow-Up ---
Subjective Subjective Date of Service: Jan 06, 2017. Pt evaluation today including: conversation w/ patient, conversation w/ family , physical exam, chart review, lab review, review of studies, review of inpatient medication list Additional Details: Pt seen and examined, with at bedside, states that he feels fine and is anxious for discharge. No further episodes of chest pain. Denies sob, palpitations, lightheadedness or dizziness. No headache with nitro patch. Tele reviewed: sinus rhythm without arrhythmia or significant ectopy. Problem List Medical Problems: (1) Left sided chest pain Status: Acute Review of Systems Respiratory: No cough, No dyspnea at rest, No dyspnea on exertion, No hemoptysis, No problem reported, No see HPI, No shortness of breath, No sputum, No wheezing Cardiac: No PND, No chest pain, No claudication, No edema, No orthopnea, No palpitations, No problem reported, No see HPI Objective Vital Signs Last Vital Signs Documentation Date Time Temp Pulse Resp B/P Pulse Ox O2 Delivery O2 Flow Rate FiO2 01/06/17 08:00 Room Air 01/06/17 07:27 36.5 66 18 131/68 96 01/05/17 20:00 4.0 Physical Exam: General Appearance: WD/WN, no apparent distress Eyes: bilateral eyes EOMI, bilateral eyes PERRL, bilateral eyes normal inspection ENT: normal ENT inspection, hearing grossly normal, pharynx normal Neck: supple, no adenopathy, thyroid normal, no JVD, trachea midline Respiratory/Chest: chest non-tender, lungs clear, normal breath sounds Cardiovascular: regular rate, rhythm, no edema, no JVD, no murmur, + gallop/S4 Abdomen: normal bowel sounds, non tender, soft, no organomegaly, + pertinent finding Extremities: normal range of motion, non-tender, normal inspection, no pedal edema, no calf tenderness Neurologic/Psychiatric: behavioral health tech II-XII nml as tested, no motor/sensory deficits, alert, normal mood/affect, oriented x 3 Skin: normal color, warm/dry, no rash Lymphatic: no adenopathy Assessment and Plan 1. chest pain resolved no objective ischemic findings bp was significantly elevated on presentation bp controlled with addition of nitro paste pt requesting discharge will change nitro to imdur 30mg daily cont all other outpatient medications will need close follow up with Tristen Otto PA-C in our office this week 2. HTN controlled start imdur, cont all other meds ok to d/c to home from cardiac standpoint.
[2017-01-06 11:47] VITALS: BP 129/74; PULSE 76; TEMP 36.8; O2SAT 97
--- NOTE | 2017-01-06 12:01 | ECHOCARDIOGRAM REPORT ---
*NOTICE TO RECEIVING [employer] This information is strictly Confidential and protected under [place] law. [place] law prohibits you from making any further disclosure of this information unless further disclosure is expressly permitted by the written consent of the person to whom it pertains or is authorized by law. A general authorization for the release of medical or other information is not sufficient for this purpose. Hospital accepts no responsibility if the information is made available to any other person, INCLUDING THE PATIENT. Interpretation Summary * Name: JAVIER NAVARRETE Study Date: 01/06/2017 07:08 AM BP: 128/71 mmHg * Patient Location: C.2T\S\E219\S\1 HR: 72 * : 1935 (M/d/yyy) Gender: Male Height: 70 in * Age: 81 yrs Ethnicity: [place] Weight: 213 lb * Ordering Physician: Khadra Day * Referring Physician: Self, Referred * Performed By: Chirstine Marshall RCS * * Reason For Study: CHEST PAIN * BSA: 2.1 m2 * -- Conclusions -- * There is mild concentric left ventricular hypertrophy. * The basal septum is thickened and angulated consistent with sigmoid septum. * The left ventricular wall motion is normal. * The LV Ejection Fraction = 55-60%. * Aortic valve sclerosis mild, without significant aortic valvular stenosis. * Diastolic dysfunction, Grade II (pseudonormalization pattern). Procedure Details * A complete two-dimensional transthoracic echocardiogram was performed (2D, M-mode, Doppler and color flow Doppler). Left Ventricle * The left ventricle is normal in size. * There is mild concentric left ventricular hypertrophy. * The basal septum is thickened and angulated consistent with sigmoid septum. * Left ventricular systolic function is normal. * Ejection Fraction = 55-60%. * The left ventricular wall motion is normal. Right Ventricle * The right ventricle is normal size. * The right ventricular systolic function is normal as assessed by tricuspid annular plane systolic excursion (TAPSE) (normal >1.5 cm). Atria * The left atrium is mildly dilated. * Right atrial size is normal. * There is no evidence of atrial septal defect, but resolution does not allow assessment for a patent foramen ovale. Mitral Valve * There is mild mitral annular calcification. * There is no mitral valve stenosis. * There is trace mitral regurgitation. Tricuspid Valve * The tricuspid valve is normal. * There is no tricuspid stenosis. * Significant tricuspid regurgitation is absent. * Doppler findings do not suggest pulmonary hypertension. Aortic Valve * The aortic valve is trileaflet. * Aortic valve sclerosis mild, without significant aortic valvular stenosis. * Aortic stenosis is absent. * There is no significant aortic regurgitation. Pulmonic Valve * The pulmonary valve is not well seen, but the Doppler examination is normal without significant regurgitation or stenosis. Great Vessels * The aortic root and proximal ascending aorta are normal sized. Pericardium/Pleural * There is no pericardial effusion. Great Vessels * Normal inferior vena cava diameter and respiratory variation suggests normal central venous pressure. Left Ventricular Diastolic Function * Diastolic dysfunction, Grade II (pseudonormalization pattern). MMode 2D Measurements and Calculations IVSd 1.3 cm IVSs 1.5 cm LVIDd 4.5 cm LVIDs 2.8 cm LVPWd 1.3 cm LVPWs 1.7 cm IVS/LVPW 1.0 FS 37.3 % EDV(Teich) 93.5 ml ESV(Teich) 30.5 ml EF(Teich) 67.4 % EDV(cubed) 92.4 ml ESV(cubed) 22.8 ml EF(cubed) 75.3 % % IVS thick 13.3 % % LVPW thick 29.6 % LV mass(C)d 233.2 grams LV mass(C)dI 108.8 grams/m\S\2 LV mass(C)s 168.5 grams LV mass(C)sI 78.6 grams/m\S\2 SV(Teich) 63.0 ml SI(Teich) 29.4 ml/m\S\2 SV(cubed) 69.6 ml SI(cubed) 32.5 ml/m\S\2 Ao root diam 3.2 cm Ao root area 8.2 cm\S\2 LA dimension 4.0 cm LA/Ao 1.2 LVOT diam 2.0 cm LVOT area 3.1 cm\S\2 Doppler Measurements and Calculations MV E max miguel 85.7 cm/sec MV A max miguel 57.7 cm/sec MV E/A 1.5 MV P1/2t max miguel 89.5 cm/sec MV P1/2t 52.2 msec MVA(P1/2t) 4.2 cm\S\2 MV dec slope 501.8 cm/sec\S\2 MV dec time 0.22 sec Ao V2 max 105.9 cm/sec Ao max PG 4.5 mmHg Ao max PG (full) 1.5 mmHg DOROTHEA(V,A) 2.6 cm\S\2 DOROTHEA(V,D) 2.6 cm\S\2 LV V1 max PG 3.0 mmHg LV V1 max 86.4 cm/sec PA V2 max 73.0 cm/sec PA max PG 2.1 mmHg TR max miguel 236.6 cm/sec
--- NOTE | 2017-01-06 12:13 | Progress Note ---
Medicine Progress Note Date & Time of Visit: Jan 06, 2017 at 12:04. Subjective patient seen sitting up in bed, comfortable denies any chest pain no dizziness, dyspnea, headache, palpitations denies other symptoms states he is back to baseline states he is ready and would like to be discharged today Objective Last 8 Hrs Date Time Temp Pulse Resp B/P Pulse Ox O2 Delivery O2 Flow Rate FiO2 01/06/17 11:47 36.8 76 18 129/74 97 01/06/17 08:00 Room Air 01/06/17 07:27 36.5 66 18 131/68 96 Physical Exam: General- oriented x 3, not in distress, speaks in sentences with no effort Eyes- anicteric Neck- supple, no JVD Lungs- clear to auscultation bilateraly no rash/tenderness/erythema Heart- regular rhythm; no murmurs Abdomen- normal bowel sounds, soft, nontender Extremities- no pretibial edema, no calf tenderness Neuro- alert, oriented x 3; no gross focal deficits Skin- warm & dry Laboratory Results: Last 24 Hours Test 01/05/17 15:00 01/05/17 20:30 Total Creatine Kinase 80 U/L 83 U/L Creatine Kinase MB 1.3 ng/ml 1.3 ng/ml Creatine Kinase MB Ratio 1.6 1.6 Troponin I < 0.015 ng/ml < 0.015 ng/ml Assessment & Plan ATYPICAL CHEST PAIN POSSIBLE MUSCULOSKELETAL ETIOLOGY ACS RULED OUT - cardiac markers negative x 3 echo: * There is mild concentric left ventricular hypertrophy. * The basal septum is thickened and angulated consistent with sigmoid septum. * The left ventricular wall motion is normal. * The LV Ejection Fraction = 55-60%. * Aortic valve sclerosis mild, without significant aortic valvular stenosis. * Diastolic dysfunction, Grade II (pseudonormalization pattern). - VQ scan: no pulmonary embolism - evaluated by Cardiologists Dr. Coelho and Dr. Hurd chest pain non cardiac in etiology - recommend to add Imdur 30mg daily for better BP control continue usual medications ff up with Cardiology Clinic c/o KRISTAN Otto this week HYPERTENSION BP apparently elevated at home when symptoms started BP dropped to 70s systolic in ER after Fentanyl -> spontaneously normalized - per Cardiology, recommend to add Imdur 30mg daily for better BP control Continue lisinopril and metoprolol succinate - monitor as outpatient LEFT LOWER LEG MILD EDEMA Doppler Leg US: negative for DVT SINUS NODE DYSFUNCTION S/p pacemaker CKD STAGE III stable monitor as outpatient PRESUMED SEIZURE DISORDER No recent seizure activity Continue Keppra DEMENTIA Continue Aricept and Namenda HYPOTHYROIDISM Continue levothyroxine BPH Continue finasteride and tamsulosin DVT PROPHYLAXIS Heparin SQ given CODE STATUS Full code per my discussion with the patient and at bedside. Has living will. DISPOSITION d/c home ff up with Cardiology Clinic this week ff up with PCP in 2 weeks Current Inpatient Medications: Current Inpatient Medications Medications (Trade) Dose Ordered Sig/Tiffani Route Start Time Stop Time Status Last Admin Dose Admin Heparin Sodium (Porcine) (Heparin Sq 5000 Unit/0.5ml) 5,000 unit Q8 SQ 01/05/17 14:00 02/04/17 13:59 01/06/17 06:21 5,000 UNIT Acetaminophen (Tylenol Tab) 650 mg Q4H PRN PO 01/05/17 11:30 02/04/17 11:29 Ondansetron HCl (Zofran Inj) 4 mg Q6H PRN IV 01/05/17 11:30 02/04/17 11:29 Aspirin (Ecotrin Tab) 81 mg HS PO 01/05/17 21:00 02/04/17 20:59 01/05/17 20:17 81 MG Atorvastatin Calcium (Lipitor Tab) 40 mg HS PO 01/05/17 21:00 02/04/17 20:59 01/05/17 20:18 40 MG Cholecalciferol (Vitamin D Tab) 1,000 inter.unit HS PO 01/05/17 21:00 02/04/17 20:59 01/05/17 20:18 1,000 INTER.UNIT Donepezil HCl (Aricept Tab) 10 mg HS PO 01/05/17 21:00 02/04/17 20:59 01/05/17 20:17 10 MG Finasteride (Proscar Tab) 5 mg HS PO 01/05/17 21:00 02/04/17 20:59 01/05/17 20:16 5 MG Levetiracetam (Keppra Tab) 500 mg BID PO 01/05/17 21:00 02/04/17 20:59 01/06/17 09:14 500 MG Levothyroxine Sodium (Synthroid Tab) 50 mcg DAILYBB PO 01/06/17 06:00 02/05/17 05:59 01/06/17 06:21 50 MCG Lisinopril (Zestril Tab) 20 mg HS PO 01/05/17 21:00 02/04/17 20:59 01/05/17 21:20 20 MG Memantine (Namenda Tab) 10 mg BID PO 01/05/17 21:00 02/04/17 20:59 01/06/17 09:14 10 MG Metoprolol Succinate (Toprol Xl Tab) 25 mg HS PO 01/05/17 21:00 02/04/17 20:59 01/05/17 21:20 25 MG Tamsulosin HCl (Flomax Cap) 0.4 mg HS PO 01/05/17 21:00 02/04/17 20:59 01/05/17 20:17 0.4 MG Miscellaneous (Iv Fluids Completed) 1 ea PRN PRN N/A 01/05/17 13:15 01/05/18 13:14 Nitroglycerin (Nitrostat Tab) 0.4 mg UD PRN SL 01/05/17 13:45 02/04/17 13:44 Tramadol HCl (Ultram Tab) 50 mg Q8H PRN PO 01/05/17 16:45 02/04/17 16:44 Isosorbide Mononitrate (Imdur Ext Rel Tab) 30 mg QAM PO 01/07/17 09:00 02/06/17 08:59
[2017-01-06] MEDS ORDERED: IMDSR30 PO (12:15)
--- NOTE | 2017-01-06 12:20 | Discharge Instructions ---
Discharge Instructions Date of Service Jan 06, 2017. Admission Reason for Admission: Chest Pain Discharge Discharge Diagnosis / Problem: CHEST PAIN Discharge Goals Goal(s): Diagnostic testing, Therapeutic intervention Activity Recommendations Activity Limitations: as noted below (NO HEAVY EXERTION UNTIL RE EVALUATED BY PRIMARY CARE PHYSICIAN) . Instructions / Follow-Up Instructions / Follow-Up PLEASE REVIEW YOUR NEW MEDICATION LIST AND FOLLOW INSTRUCTIONS CAREFULLY. CALL PRIMARY CARE PHYSICIAN OR RETURN TO ER IMMEDIATELY IF WITH RETURN OF SYMPTOMS, DIZZINESS, LIGHTHEADEDNESS, WEAKNESS, INCREASING LEFT LEG SWELLING. FOLLOW UP WITH CARDIOLOGY CLINIC with KRISTAN SUBRAMANIAN ON Sunday01/08/17 AT 10: 20AM. FOLLOW UP WITH DR. DAVIS ON 01/16/17 AT 1:50PM. (CLINIC TO CALL PATIENT WITH APPOINTMENT). Current Hospital Diet Patient's current hospital diet: AHA Diet (Heart Healthy) Discharge Diet Recommended Diet: AHA Diet (Heart Healthy) Pending Studies Studies pending at discharge: no Medical Emergencies . Who to Call and When: Medical Emergencies: If at any time you feel your situation is an emergency, please call 911 immediately. . Non-Emergent Contact Non-Emergency issues call your: Primary Care Provider Call Non-Emergent contact if: you have any medication questions . Past History Medical & Surgical History: (1) Left sided chest pain (2) Hypertension (3) CAD (coronary artery disease) (4) Dizziness (5) Urinary problem (6) Symptomatic sinus bradycardia (7) Chest pain (8) Dyslipidemia (9) Seizure disorder (10) Sinus node dysfunction (11) CKD (chronic kidney disease), stage III (12) GERD (gastroesophageal reflux disease) (13) S/P placement of cardiac pacemaker (14) H/O coronary artery balloon dilation (15) H/O inguinal hernia repair . "Provider Documentation" section prepared by Chris Vallecillo. VTE Core Measure Inpt VTE Proph given/why not?: Unfractionated heparin SQ
--- NOTE | 2017-01-06 12:28 | Discharge Summary ---
Discharge Summary Date of Service Jan 06, 2017. Discharge Summary Admission Date: Jan 05, 2017 at 11:26 Discharge Date: Jan 06, 2017 Discharge Disposition: Home Principal Diagnosis: ATYPICAL CHEST PAIN; POSSIBLE MUSCULOSKELETAL ETIOLOGY; ACS RULED OUT Secondary Diagnoses/Problems: PLEASE REFER TO HOSPITAL COURSE BELOW FOR FURTHER DETAILS. Procedures: ECHO: * -- Conclusions -- * There is mild concentric left ventricular hypertrophy. * The basal septum is thickened and angulated consistent with sigmoid septum. * The left ventricular wall motion is normal. * The LV Ejection Fraction = 55-60%. * Aortic valve sclerosis mild, without significant aortic valvular stenosis. * Diastolic dysfunction, Grade II (pseudonormalization pattern). 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 COELHO/ROB Pending Studies/Follow-Up: PLEASE REFER TO HOSPITAL COURSE BELOW. Medication Reconciliation New Medications: Isosorbide Mononitrate (Isosorbide Mononitrate ER) 30 Mg Tabcr 30 MG PO QAM for 30 Days, #30 TABS 2 Refills Continued Medications: Amlodipine Besylate (Norvasc) 10 Mg Tab 5 MG PO HS Aspirin (Aspirin Ec) 81 Mg Tab 81 MG PO HS Atorvastatin (Lipitor) 40 Mg Tab 40 MG PO HS Cholecalciferol (Vitamin D) 1,000 Unit Tab 1000 UNITS PO HS Donepezil Hydrochloride (Aricept) 10 Mg Tab 10 MG PO HS, TAB Finasteride (Proscar) 5 Mg Tab 5 MG PO HS, TAB Levetiracetam (Keppra) 250 Mg Tab 500 MG PO BID Levothyroxine Sodium (Levothyroxine Sodium) 50 Mcg Tab 50 MCG PO DAILY for 90 Days, #90 TAB 3 Refills Lisinopril (Zestril) 20 Mg Tab 20 MG PO HS Memantine Hcl (Namenda) 10 Mg Tab 10 MG PO BID Metoprolol Succinate (Toprol Xl) 25 Mg Tabcr 25 MG PO HS Nitroglycerin (Nitrostat) 0.4 Mg Tab 0.4 MG UT PRN for Chest Pain Tamsulosin Hcl (Flomax) 0.4 Mg Cap 0.4 MG PO HS, CAP Admission Information HPI (per Admitting provider): This is an 81 year old male with PMH of CAD s/p PCI to right coronary with chronic right coronary occlusion, hx symptomatic bradycardia s/p pacemaker, HTN , HL, dementia, seizure disorder, who presents to the ED with left sided chest pain. states patient awoke with chest pain this morning at 5:30 am. Pain is located in left chest radiating to left lateral ribs and left shoulder. Has not exerted himself. He did not take nitro at home. In the ED patient was given nitro tab without improvement. He was given dose of Fentanyl which helped the pain, but still feeling mild pain in his L lateral rib area. Approximately 30 minutes after Fentanyl patient became nauseous, pale, diaphoretic, and BP dropped to 70s systolic at that time. BP has improved. No longer feeling nauseous after being treated with Zofran. At time of my exam patient c/o SOB for past 1.5 hour which was resolved when I rechecked him. reports new onset of unilateral LLE edema for past few days.Pt's sats were stable on RA and is currently on 3L NC. Patient was in his usual state of health yesterday. He had been able to ambulate around the block without any dyspnea. Pt denies dizziness, fever, chills, URI sx, cough, palpitations, GAR, abdominal pain, reflux, vomiting, diarrhea, urinary changes, calf pain, abnormal bleeding, anxiety, recent seizure. No recent heavy lifting. No recent travel, surgery, immobilization. No hx of VTE. Physical Exam (per Admitting): General Appearance: WD/WN, + pertinent finding (alert cooperative, elderly male, lying in bed, quiet, appears uncomfortable, not in respiratory distress, at bedside) Head: normocephalic, atraumatic Eyes: normal inspection, PERRL, EOMI ENT: hearing grossly normal, pharynx normal Neck: supple, no JVD, no carotid bruits, trachea midline Respiratory/Chest: chest non-tender, lungs clear, normal breath sounds, no respiratory distress, no accessory muscle use, + pertinent finding (speaks in full sentences) Cardiovascular: regular rate, rhythm, no murmur Abdomen/GI: normal bowel sounds, non tender, soft Extremities/Musculoskelatal: no calf tenderness, + pertinent finding (1+ pitting pretibial edema LLE. RLE no edema. L shoulder nontender. no pain on L shoulder ROM.) Neurologic/Psych: alert, normal mood/affect, oriented x 3, + pertinent finding (grossly nonfocal) Skin: normal color, warm/dry, no rash (no rash on the chest) Hospital Course ATYPICAL CHEST PAIN; POSSIBLE MUSCULOSKELETAL ETIOLOGY; ACS RULED OUT - presented with left lateral side chest pain - cardiac markers negative x 3 echo: * There is mild concentric left ventricular hypertrophy. * The basal septum is thickened and angulated consistent with sigmoid septum. * The left ventricular wall motion is normal. * The LV Ejection Fraction = 55-60%. * Aortic valve sclerosis mild, without significant aortic valvular stenosis. * Diastolic dysfunction, Grade II (pseudonormalization pattern). - VQ scan: no pulmonary embolism - evaluated by Cardiologists Dr. Coelho and Dr. Hurd chest pain non cardiac in etiology - recommend to add Imdur 30mg daily for better BP control continue usual medications ff up with Cardiology Clinic c/o KRISTAN Otto this week HYPERTENSION BP apparently elevated at home when symptoms started BP dropped to 70s systolic in ER after Fentanyl -> spontaneously normalized - per Cardiology, recommend to add Imdur 30mg daily for better BP control Continue lisinopril and metoprolol succinate - monitor as outpatient LEFT LOWER LEG MILD EDEMA Doppler Leg US: negative for DVT SINUS NODE DYSFUNCTION S/p pacemaker CKD STAGE III stable monitor as outpatient PRESUMED SEIZURE DISORDER No recent seizure activity Continue Keppra DEMENTIA Continue Aricept and Namenda HYPOTHYROIDISM Continue levothyroxine BPH Continue finasteride and tamsulosin DVT PROPHYLAXIS Heparin SQ given CODE STATUS Full code per my discussion with the patient and at bedside. Has living will. DISPOSITION d/c home ff up with Cardiology Clinic this week ff up with PCP in 2 weeks Total time spent on discharge = 30 minutes This includes examination of the patient, discharge planning, medication reconciliation, and communication with other providers. Discharge Instructions Discharge Instructions Date of Service Jan 06, 2017. Admission Reason for Admission: Chest Pain Discharge Discharge Diagnosis / Problem: CHEST PAIN Discharge Goals Goal(s): Diagnostic testing, Therapeutic intervention Activity Recommendations Activity Limitations: as noted below (NO HEAVY EXERTION UNTIL RE EVALUATED BY PRIMARY CARE PHYSICIAN) . Instructions / Follow-Up Instructions / Follow-Up PLEASE REVIEW YOUR NEW MEDICATION LIST AND FOLLOW INSTRUCTIONS CAREFULLY. CALL PRIMARY CARE PHYSICIAN OR RETURN TO ER IMMEDIATELY IF WITH RETURN OF SYMPTOMS, DIZZINESS, LIGHTHEADEDNESS, WEAKNESS, INCREASING LEFT LEG SWELLING. FOLLOW UP WITH CARDIOLOGY CLINIC with KRISTAN OTTO ON Sunday01/08/17 AT 10: 20AM. FOLLOW UP WITH DR. DAVIS ON 01/16/17 AT 1:50PM. (CLINIC TO CALL PATIENT WITH APPOINTMENT). Current Hospital Diet Patient's current hospital diet: AHA Diet (Heart Healthy) Discharge Diet Recommended Diet: AHA Diet (Heart Healthy) Pending Studies Studies pending at discharge: no Medical Emergencies . Who to Call and When: Medical Emergencies: If at any time you feel your situation is an emergency, please call 911 immediately. . Non-Emergent Contact Non-Emergency issues call your: Primary Care Provider Call Non-Emergent contact if: you have any medication questions . Past History Medical & Surgical History: (1) Left sided chest pain (2) Hypertension (3) CAD (coronary artery disease) (4) Dizziness (5) Urinary problem (6) Symptomatic sinus bradycardia (7) Chest pain (8) Dyslipidemia (9) Seizure disorder (10) Sinus node dysfunction (11) CKD (chronic kidney disease), stage III (12) GERD (gastroesophageal reflux disease) (13) S/P placement of cardiac pacemaker (14) H/O coronary artery balloon dilation (15) H/O inguinal hernia repair . "Provider Documentation" section prepared by Chris Vallecillo. VTE Core Measure Inpt VTE Proph given/why not?: Unfractionated heparin SQ
[2017-01-06 12:37] VITALS: BP 125/76; PULSE 76; TEMP 37; O2SAT 98
[2017-01-07] MEDS ORDERED: ISOSORBIDE MONONITRATE 30 MG TABCR PO SCH (09:00)
== END 2017-01-06 12:30 | disposition home or self-care (01) ==
LOC: ENRESERVDT → ENRESERVTM → C.EDB 07:41 → C.2T 11:26
PROVIDERS: ADMIT Internal Medicine; ATTEND Internal Medicine
DX: R07.89 Other chest pain (principal); N18.3 Chronic kidney disease, stage 3 (moderate); E78.5 Hyperlipidemia, unspecified; F03.90 Unspecified dementia, unspecified severity, without behavioral disturbance, psychotic disturbance, mood disturbance, and anxiety; K21.9 Gastro-esophageal reflux disease without esophagitis; E03.9 Hypothyroidism, unspecified; N40.0 Benign prostatic hyperplasia without lower urinary tract symptoms; I12.9 Hypertensive chronic kidney disease with stage 1 through stage 4 chronic kidney disease, or unspecified chronic kidney disease; G40.909 Epilepsy, unspecified, not intractable, without status epilepticus; I25.10 Atherosclerotic heart disease of native coronary artery without angina pectoris; Z82.49 Family history of ischemic heart disease and other diseases of the circulatory system; Z83.6 Family history of other diseases of the respiratory system; Z95.0 Presence of cardiac pacemaker; Z79.82 Long term (current) use of aspirin; Z79.899 Other long term (current) drug therapy

== ENCOUNTER 2017-06-27 13:01 | Emergency (ER) | payer OTHER ==
[~2017-06-27] VITALS: Ht 177.8 cm; Wt 97.3 kg
[~2017-06-27 13:01] MED LIST changes: -ASPCH81 PO; +ASPI81TA28 PO; -FELO5TAB PO; +FINA5TAB PO; +IMDSR30 PO; +LEVE250T PO; +MEMA10TA PO; +METO25TA3 PO; -TPRSR25 PO
[2017-06-27 13:10] VITALS: O2SAT 94; Ht 177.8 cm; Wt 97.3 kg
[2017-06-27] MEDS ORDERED: SODIUM CHLORIDE 0.9% 1000ML 1,000 ML IV STA (13:44)
[2017-06-27 14:18] LABS: BASO % 0.7 %; BASO ABS # 0.05 K/uL (0-0.2); COMPLETE YES; HEMATOCRIT 40.5 % (42-52); IG% 0.3 %; LYMPH % 26.2 %; LYMPH ABS # 1.83 K/uL (1.2-3.4); MEAN CELL VOLUME 92.9 fL (80-100); MEAN CORPUSCULAR HEMOGLOBIN 31.7 pg (25-34); MEAN CORPUSCULAR HGB CONC 34.1 g/dl (32-36); MEAN PLATELET VOLUME 9.6 fL (7.4-10.4); MONO % 11.5 %; NEUT % 55.3 %; PLATELET COUNT 184 K/uL (130-400); RED BLOOD COUNT 4.36 M/uL (4.7-6.1); WHITE BLOOD COUNT 6.98 K/uL (4.8-10.8)
[2017-06-27 14:29] LABS: BUN/CREATININE RATIO 9.4 (10-20); CALCIUM 8.9 mg/dl (8.5-10.1); CREATININE 1.4 mg/dl (0.60-1.40); POTASSIUM 3.8 mmol/L (3.5-5.1)
--- NOTE | 2017-06-27 14:40 | DIAGNOSTIC IMAGING REPORT ---
CHEST ONE VIEW PORTABLE CLINICAL HISTORY: 82 years-old Male presenting with CHEST PAIN. TECHNIQUE: Portable upright AP view of the chest was obtained. COMPARISON: 01/05/2014. FINDINGS: Left-sided pacer with leads to the right atrium and right ventricular apex. Atherosclerosis of aortic arch. Cardiac silhouette normal in size. Lungs and pleural spaces clear. Degenerative changes of the thoracic spine. Upper abdomen normal. IMPRESSION: 1. No acute cardiopulmonary disease. Electronically signed by: [place] Matthew M.D. 06/27/2017 2:39 PM Dictated Date/Time: 06/27/2017 2:38 PM
[2017-06-27] MEDS ORDERED: LEVETIRACETAM 500 MG TAB PO STA (15:37)
--- NOTE | 2017-06-27 15:48 | EMERGENCY ROOM VISIT NOTE ---
History Report prepared by Ced: Bakari York Under the Supervision of: Dr. John Hancock M.D. First contact with patient: 13:39 Chief Complaint: SYNCOPE Stated Complaint: SYNCOPE Nursing Triage Summary: Pt arrives to ER following a syncopal episode at [facility]. Pt was found to be bradycardic at time of event. Pt has no recollection of events and had no symptoms prior to event. Pt now reports no symptoms. Denies chest pain, shortness of breath. Seen by cardiology. Pt has pacer. History of Present Illness The patient is a 82 year old male who presents to the Emergency Room by EMS with complaints of a syncopal episode occurring just prior to arrival. Per family, the patient has a history of similar symptoms which are thought to be seizures for which he is on Keppra. She states that the patient was sitting at a luncheon when he fell over. She states that he was drooling at the mouth and shaking during the episode. The patient's family states that the patient felt totally normal prior to the episode. She states that the patient wasn't particularly confused following the incident. The patient does not remember the event. He denies any numbness or weakness. He denies any injury or trauma from the episode. The patient's most recent seizure was one year ago. He notes that he was restless last night and may not have slept well. He has a pacemaker in place. Source of History: patient Onset: Just prior to arrival Quality: other (syncope) Timing: other (episode) Associated Symptoms: + LOC, No weakness, No numbness Note: Additional symptoms: shaking and drooling at the mouth. Review of Systems See HPI for pertinent positives & negatives. A total of 10 systems reviewed and were otherwise negative. Past Medical & Surgical Medical Problems: (1) CAD (coronary artery disease) (2) Chest pain (3) CKD (chronic kidney disease), stage III (4) Dyslipidemia (5) GERD (gastroesophageal reflux disease) (6) Hypertension (7) Seizure disorder (8) Sinus node dysfunction (9) Urinary problem Surgical Problems: (1) H/O coronary artery balloon dilation (2) H/O inguinal hernia repair (3) S/P placement of cardiac pacemaker Old medical records were reviewed. Nurse's notes were reviewed and I agree with. Family History Hypertension Lung disease Social History Smoking Status: Never Smoker Drug Use: none Marital Status: Occupation Status: retired Current/Historical Medications Scheduled Amlodipine Besylate (Norvasc), 5 MG PO HS Aspirin (Aspirin Ec), 81 MG PO HS Atorvastatin (Lipitor), 40 MG PO HS Cholecalciferol (Vitamin D), 1,000 UNITS PO HS Donepezil Hydrochloride (Aricept), 10 MG PO HS Finasteride (Proscar), 5 MG PO HS Isosorbide Mononitrate (Isosorbide Mononitrate ER), 30 MG PO QAM Levetiracetam (Keppra), 500 MG PO BID Levothyroxine Sodium (Levothyroxine Sodium), 50 MCG PO DAILY Lisinopril (Zestril), 20 MG PO HS Memantine Hcl (Namenda), 10 MG PO BID Metoprolol Succinate (Toprol Xl), 25 MG PO HS Scheduled PRN Nitroglycerin (Nitrostat), 0.4 MG UT for Chest Pain Allergies Coded Allergies: Iodinated Diagnostic Agents (Verified Allergy, Unknown, `, 06/27/17) Physical Exam Vital Signs Date Time Temp Pulse Resp B/P (MAP) Pulse Ox O2 Delivery O2 Flow Rate FiO2 06/27/17 16:17 36.5 64 23 126/70 97 06/27/17 15:31 126/70 06/27/17 15:30 64 23 97 06/27/17 15:01 129/65 06/27/17 15:00 61 20 95 06/27/17 14:11 62 18 118/64 94 Room Air 06/27/17 13:38 60 06/27/17 13:10 94 Room Air 06/27/17 13:10 36.5 72 16 121/82 94 Room Air Physical Exam General: Well developed well nourished in no acute distress, breathing comfortably on room air. Normal speech. Answers questions appropriately. Does not appear post-ictal. HEENT: Normal cephalic atraumatic. Pupils are equal round and reactive to light. Extraocular movements are intact. Oropharynx is pink with moist mucous membranes. No swelling of the mouth lips or tongue. Neck: Supple with a midline trachea. No meningeal signs or stiffness, no JVD or bruits. No Stridor. Chest: Clear to auscultation bilaterally. No wheezes or rhonchi. No increased work of breathing. Heart: regular rate and rhythm. Abdomen: Soft nontender, nondistended without rebound guarding or rigidity. Extremities: No cyanosis clubbing or edema. No calf tenderness or assymetry Spine/Back. Non tender to palpation. No CVA tenderness Skin: Good turgor without rashes. Neurologic exam: Cranial nerves two through 12 are intact. Motor and sensation are intact and symmetrical throughout. No tremor. Medical Decision & Procedures ER Provider Diagnostic Interpretation: X-ray results as stated below per interpretation by me and the radiologist: CHEST ONE VIEW PORTABLE FINDINGS: Left-sided pacer with leads to the right atrium and right ventricular apex. Atherosclerosis of aortic arch. Cardiac silhouette normal in size. Lungs and pleural spaces clear. Degenerative changes of the thoracic spine. Upper abdomen normal. IMPRESSION: 1. No acute cardiopulmonary disease. Electronically signed by: [place] Matthew M.D. 06/27/2017 2:39 PM Laboratory Results 06/27/17 13:15 Red Blood Count 4.36, Mean Corpuscular Volume 92.9, Mean Corpuscular Hemoglobin 31.7, Mean Corpuscular Hemoglobin Concent 34.1, Mean Platelet Volume 9.6, Neutrophils (%) (Auto) 55.3, Lymphocytes (%) (Auto) 26.2, Monocytes (%) (Auto) 11.5, Eosinophils (%) (Auto) 6.0, Basophils (%) (Auto) 0.7, Neutrophils # (Auto ) 3.86, Lymphocytes # (Auto) 1.83, Monocytes # (Auto) 0.80, Eosinophils # (Auto ) 0.42, Basophils # (Auto) 0.05 06/27/17 13:15 Test 06/27/17 13:15 06/27/17 13:49 White Blood Count 6.98 K/uL (4.8-10.8) Red Blood Count 4.36 M/uL (4.7-6.1) Hemoglobin 13.8 g/dL (14.0-18.0) Hematocrit 40.5 % (42-52) Mean Corpuscular Volume 92.9 fL (80-100) Mean Corpuscular Hemoglobin 31.7 pg (25-34) Mean Corpuscular Hemoglobin Concent 34.1 g/dl (32-36) Platelet Count 184 K/uL (130-400) Mean Platelet Volume 9.6 fL (7.4-10.4) Neutrophils (%) (Auto) 55.3 % Lymphocytes (%) (Auto) 26.2 % Monocytes (%) (Auto) 11.5 % Eosinophils (%) (Auto) 6.0 % Basophils (%) (Auto) 0.7 % Neutrophils # (Auto) 3.86 K/uL (1.4-6.5) Lymphocytes # (Auto) 1.83 K/uL (1.2-3.4) Monocytes # (Auto) 0.80 K/uL (0.11-0.59) Eosinophils # (Auto) 0.42 K/uL (0-0.5) Basophils # (Auto) 0.05 K/uL (0-0.2) RDW Standard Deviation 46.4 fL (36.4-46.3) RDW Coefficient of Variation 13.7 % (11.5-14.5) Immature Granulocyte % (Auto) 0.3 % Immature Granulocyte # (Auto) 0.02 K/uL (0.00-0.02) Anion Gap 9.0 mmol/L (3-11) Est Creatinine Clear Calc Drug Dose 47.6 ml/min Estimated GFR () 53.8 Estimated GFR (Non- 46.5 BUN/Creatinine Ratio 9.4 (10-20) Calcium Level 8.9 mg/dl (8.5-10.1) Total Bilirubin 0.5 mg/dl (0.2-1) Direct Bilirubin 0.2 mg/dl (0-0.2) Aspartate Amino Transf (AST/SGOT) 24 U/L (15-37) Alanine Aminotransferase (ALT/SGPT) 36 U/L (12-78) Alkaline Phosphatase 95 U/L (45-117) Total Protein 6.7 gm/dl (6.4-8.2) Albumin 3.4 gm/dl (3.4-5.0) Lipase 313 U/L (73-393) Bedside Troponin I < 0.030 ng/ml (0-0.045) Laboratory studies as stated above per my review. Medications Administered Medications (Trade) Dose Ordered Sig/Tiffani Route Start Time Stop Time Status Last Admin Dose Admin Sodium Chloride 1,000 ml @ 999 mls/hr Q1H1M STAT IV 10/4/17 13:44 06/27/17 14:44 DC 06/27/17 14:12 999 MLS/HR Levetiracetam (Keppra Tab) 500 mg ONE STAT PO 06/27/17 15:37 06/27/17 15:39 DC 06/27/17 15:59 500 MG ECG Indication: syncope Rate (beats per minute): 65 Rhythm: other (atrial-paced rhythm) Findings: other (ST abnormality anterior and laterally. Poor R-wave progression ) Comparison ECG Date: January 06, 2017 Change: no significant change ED Course 1340: Past medical records reviewed. The patient was evaluated in room A11B, and a complete history and physical examination were performed. 1344: Ordered Sodium Chloride 1000 ml @ 999 mls/hr IV. 1520: I spoke with the [employer] advertising account representative. He states that his pacemaker is working normally. He notes that the patient had an episode of V-tach for 25 seconds one week ago. The patient is currently asymptomatic. 1537: Ordered Keppra Tab 500 mg PO. 1540: Upon reevaluation, the patient is resting comfortably. I discussed the results and treatment plan with him. He verbalized agreement of the treatment plan. The patient was discharged home. Medical Decision Differentials include, but are not limited to; seizure, syncope, cardiac disease , and electrolyte or metabolic abnormality. This patient comes in as described above. He was placed in room A 11. He is here for treatment and evaluation after having a seizure. He does have a seizure disorder last seizure about a year ago. He also has had cardiac issues and has a pacemaker. He denies any chest pain or shortness of breath. His 's description sounds very consistent with a seizure and she says it was like the that he's had before. He is back at baseline at present. He has a normal neurologic exam there is no fall or trauma. EKG shows a paced rhythm without ischemia. He has no acute electrolyte or metabolic abnormalities. He has nothing to suggest acute cardiac disease or coronary syndrome. We did interrogate his pacemaker and the [employer] advertising account representative said that the pacemaker was working fine. About a week ago, he had a brief episode of ventricular tachycardia. I a did discuss this with Dr. Barrington Coelho, his taxation consultant, and he feels the patient can go home and to follow-up with the clinic. There is no evidence that he had an event today related to ventricular tachycardia. The patient and his family very happy with this and he does not want stay. I did give him an extra Keppra 500 mg by mouth here and I recommend he follow up with his neurologist this week as well for recheck. Dr. Coelho's office will be calling and getting him in the near future. Medication Reconcilliation Current Medication List: was personally reviewed by me Blood Pressure Screening Patient's blood pressure: Normal blood pressure Blood pressure disposition: Did not require urgent referral Consults Time Called: 1520 Consulting Physician: Dr. Coelho -Cardiology Returned Call: [phone] Discussed the patient's case. Dr. Coelho recommends discharging the patient with close outpatient follow-up. Impression Primary Impression: Seizure Scribe Attestation The scribe's documentation has been prepared under my direction and personally reviewed by me in its entirety. I confirm that the note above accurately reflects all work, treatment, procedures, and medical decision making performed by me. Departure Information Dispostion Home / Self-Care Referrals Jordana Hopkins DO (PCP) Forms HOME CARE DOCUMENTATION FORM, IMPORTANT VISIT INFORMATION Patient Instructions My [facility] Additional Instructions Rest. Drink plenty of fluids. Return if: Further episodes, chest pain, shortness of breath, any new problems or concerns Follow up with your doctor next 1-2 days for recheck and also follow-up with Dr. Coelho, they will call you,
[2017-06-27 16:17] VITALS: BP 126/70; PULSE 64; TEMP 36.5; O2SAT 97
== END 2017-06-27 16:05 | disposition home or self-care (01) ==
LOC: EDBD 13:01 → C.EDA 13:03
DX: G40.909 Epilepsy, unspecified, not intractable, without status epilepticus (principal); Z95.0 Presence of cardiac pacemaker; I25.10 Atherosclerotic heart disease of native coronary artery without angina pectoris; N18.3 Chronic kidney disease, stage 3 (moderate); I12.9 Hypertensive chronic kidney disease with stage 1 through stage 4 chronic kidney disease, or unspecified chronic kidney disease; E78.5 Hyperlipidemia, unspecified; K21.9 Gastro-esophageal reflux disease without esophagitis; Z82.49 Family history of ischemic heart disease and other diseases of the circulatory system; Z79.82 Long term (current) use of aspirin; Z79.899 Other long term (current) drug therapy

== ENCOUNTER 2018-11-20 13:13 | Inpatient (IN) ==
[2018-11-20 14:42] LABS: Basophils # (auto) 0.04 K/uL (0-0.2); Basophils % (auto) 0.5 %; Eosinophils # (auto) 0.22 K/uL (0-0.5); Hematocrit (blood only) 44.4 % (42-52); Hemoglobin 14.9 g/dL (14.0-18.0); Immature Granulocytes # (auto) 0.04 K/uL (0.00-0.02); Immature Granulocytes % (auto) 0.5 %; Lymphocytes # (auto) 1.47 K/uL (1.2-3.4); Lymphocytes % (auto) 20.2 %; Mean Corpuscular Hgb Conc 33.6 g/dL (32-36); Mean Corpuscular Volume 94.5 fL (80-100); Mean Platelet Volume 9.5 fL (7.4-10.4); Monocytes # (auto) 1.02 K/uL (0.11-0.59); Neutrophils # (auto) 4.49 K/uL (1.4-6.5); Neutrophils % (auto) 61.8 %; Platelet Count 270 K/uL (130-400); RDW Coefficient of Variation 13.8 % (11.5-14.5); RDW Standard Deviation 47.6 fL (36.4-46.3); White Blood Count 7.28 K/uL (4.8-10.8)
[2018-11-20 14:55] LABS: Partial Thromboplastin Ratio 0.9; Partial Thromboplastin Time 24.2 Seconds (21.0-31.0); Prothrombin Time 10.5 Seconds (9.0-12.0)
[2018-11-20 15:06] LABS: Albumin Level 3.2 gm/dl (3.4-5.0); BUN Creatinine Ratio 13.5 (10-20); Calcium 8.6 mg/dl (8.5-10.1); Creatinine Clr Calc Pharmacy 51.3 ml/min; Est GFR (African American) 61.3; Est GFR (Non-African American) 52.9; Potassium 4.1 mmol/L (3.5-5.1)
[2018-11-20 15:15] LABS: Albumin Globulin Ratio 0.8 (0.9-2); Bilirubin,Total 0.3 mg/dl (0.2-1); Globulin 3.9 gm/dl (2.5-4.0); Total Protein 7.1 gm/dl (6.4-8.2); Troponin I 0.329 ng/ml (0-0.045)
--- NOTE | 2018-11-20 15:36 | XRay Report ---
XR chest 1V portable CLINICAL HISTORY: arm pain, elevated trop COMPARISON STUDY: 06/27/2017 FINDINGS: The heart is mildly enlarged. There is left subclavian dual-chamber central venous pacemake r. There is no failure. There is no focal pulmonary consolidation. There are no pleural effusions.[ IMPRESSION: No active disease in the chest. Electronically signed by: Luigi Leal M.D. 11/20/2018 3:34 PM
--- NOTE | 2018-11-20 15:54 | Emergency Department Note ---
Entered by Dacia Mendoza acting as a scribe for Haider Vines M.D. History of Present Illness General Chief complaint: Arm Pain Stated complaint: BLOOD CLOT IN LEFT ARM Source: patient and family () Limitations: no limitations History of Present Illness Provider complaint: shoulder pain Onset (ago): day(s) 4 Location: upper extremity and left Radiation: neck Quality: + aching Associated symptoms: + denies other symptoms (numbness) and + other (+swelling); no shortness of breath The patient is a 83 year old male who presents to the Emergency Room with complaints of left shoulder pain that began 4 days prior to arrival. The patient describes the pain as an aching and states that the pain radiates to his neck. The patient states that he has left arm swelling but denies any numbness or shor tness of breath. The patient denies any recent falls. The patient states that he is left handed and states that he moves his arm frequently. The patient states that he saw Dr. Otto-Internal Medicine and received a CT which showed a blood clot in his neck. The patient denies a history of blood clots, stomach bleeding, seizures, or recent surgeries. The patient denies being on blood thinners but states that he takes a low dose of Aspirin in the evening. The patient states that he last traveled 2 weeks prior to arrival to [place]. Home Medications Home Medications Medication Instructions Recorded Confirmed Type amiodarone [Pacerone] 200 mg PO DAILY 11/20/18 11/20/18 History amlodipine [Norvasc] 5 mg PO DAILY 11/20/18 11/20/18 History aspirin [Aspir-Low] 81 mg PO DAILY 11/20/18 11/20/18 History donepezil [Aricept] 10 mg PO DAILY 11/20/18 11/20/18 History finasteride [Proscar] 5 mg PO DAILY 11/20/18 11/20/18 History levetiracetam [Keppra XR] 1,500 mg PO HS 11/20/18 11/20/18 History levetiracetam [Keppra XR] 500 mg PO HS 11/20/18 11/20/18 History levothyroxine 88 mcg PO DAILY 11/20/18 11/20/18 History memantine [Namenda] 10 mg PO BID 11/20/18 11/20/18 History metoprolol succinate [Toprol XL] 50 mg PO DAILY 11/20/18 11/20/18 History nitroglycerin [Nitrostat] 0.4 mg SUBLINGUAL UD PRN 11/20/18 11/20/18 History Allergies Allergy/AdvReac Type Severity Reaction Status Date / Time Iodinated Contrast- Oral and Allergy Unknown ` Verified 11/20/18 15:19 IV Dye Past Med/Surg History Medical History Non-sustained ventricular tachycardia (Chronic) Hypertension (Chronic) CAD (coronary artery disease) (Chronic) History of prior RCA interventions with chronic RCA occlusion Symptomatic sinus bradycardia (Chronic) Dyslipidemia (Chronic) Seizure disorder (Chronic) Sinus node dysfunction (Chronic) CKD (chronic kidney disease), stage III (Chronic) GERD (gastroesophageal reflux disease) (Chronic) Surgical History S/P placement of cardiac pacemaker (Chronic) H/O coronary artery balloon dilation (Chronic) H/O inguinal hernia repair (Chronic) Family History Other Family history non-contributory Social History Preferred Language: Swedish 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 and A total of 10 systems reviewed and were otherwise negative Physical Exam Vital Signs Vital Signs - 24 hr 11/20/18 13:16 11/20/18 14:37 11/20/18 15:17 Temperature 36.6 C Temperature Source Oral Sepsis Recent Fever Within 48 Hours No Sepsis Action Taken by Nursing No Action Required Pulse Rate 74 65 Pulse Rate [Apical] 60 64 Pulse Rate from SpO2 Sensor 65 Respiratory Rate 18 20 14 Respiratory Effort / Characteristics Respiratory Depth Normal Blood Pressure 116/69 151/78 H Blood Pressure [Right Arm] 125/69 151/78 H Blood Pressure Mean 84 102 Blood Pressure Mean [Right Arm] 87 102 Blood Pressure Position Sitting Pulse Oximetry 94 95 94 Oxygen Delivery Method Room Air Room Air 11/20/18 15:30 11/20/18 16:00 11/20/18 16:30 Temperature Temperature Source Sepsis Recent Fever Within 48 Hours Sepsis Action Taken by Nursing Pulse Rate 62 60 60 Pulse Rate [Apical] Pulse Rate from SpO2 Sensor Respiratory Rate 21 17 20 Respiratory Effort / Characteristics Respiratory Depth Blood Pressure Blood Pressure [Right Arm] Blood Pressure Mean Blood Pressure Mean [Right Arm] Blood Pressure Position Pulse Oximetry Oxygen Delivery Method 11/20/18 17:02 11/20/18 17:03 11/20/18 17:30 Temperature Temperature Source Sepsis Recent Fever Within 48 Hours Sepsis Action Taken by Nursing Pulse Rate 60 60 63 Pulse Rate [Apical] 60 Pulse Rate from SpO2 Sensor 62 60 62 Respiratory Rate 18 17 18 Respiratory Effort / Characteristics Respiratory Depth Blood Pressure 150/77 H 137/75 Blood Pressure [Right Arm] 150/77 H Blood Pressure Mean 101 95 Blood Pressure Mean [Right Arm] 101 Blood Pressure Position Pulse Oximetry 94 95 94 Oxygen Delivery Method Room Air 11/20/18 17:31 11/20/18 18:00 11/20/18 18:30 Temperature Temperature Source Sepsis Recent Fever Within 48 Hours Sepsis Action Taken by Nursing Pulse Rate 72 70 60 Pulse Rate [Apical] Pulse Rate from SpO2 Sensor 62 69 59 L Respiratory Rate 16 12 17 Respiratory Effort / Characteristics Respiratory Depth Blood Pressure 125/76 159/80 H Blood Pressure [Right Arm] Blood Pressure Mean 92 106 Blood Pressure Mean [Right Arm] Blood Pressure Position Pulse Oximetry 90 96 93 Oxygen Delivery Method Room Air Room Air 11/20/18 19:00 11/20/18 19:21 Temperature 36.3 C L Temperature Source Oral Sepsis Recent Fever Within 48 Hours Sepsis Action Taken by Nursing Pulse Rate 60 Pulse Rate [Apical] 65 Pulse Rate from SpO2 Sensor 60 Respiratory Rate 17 18 Respiratory Effort / Characteristics Non-Labored Spontaneous Respiratory Depth Normal Blood Pressure 146/77 H Blood Pressure [Right Arm] 152/83 H Blood Pressure Mean 100 Blood Pressure Mean [Right Arm] 106 Blood Pressure Position Pulse Oximetry 93 95 Oxygen Delivery Method Room Air Room Air GENERAL: Awake, alert, well-appearing, in no distress HENT: Normocephalic, atraumatic. EYES: Normal conjunctiva. Sclera non-icteric. NECK: Supple. No nuchal rigidity. RESPIRATORY: Clear to auscultation. No wheezes. Normal respiratory effort. CARDIAC: Normal rate. Normal rhythm. Extremities warm and well perfused. GI: Soft, non-distended. No tenderness to palpation. No rebound or guarding. RECTAL: Deferred. MUSCULOSKELETAL: Atraumatic. Chest examination reveals no tenderness. UPPER EXTREMITIES: 2+ left upper extremity swelling. In tact left radial pulse, slightly pinkish in color. LOWER EXTREMITIES: Calves are equal size bilaterally and non-tender. No edema. NEURO: Normal sensorium. No sensory or motor deficits noted. No facial droop. SKIN: Warm and dry. No rash or jaundice noted. Course 1408: Past medical records reviewed. The patient was evaluated in room C7, and a complete history and physical examination were performed. 1440: I discussed the patient's case with Dr. Chacon- Vascular Surgery who recommends anticoagulation and states that the patient does not need any other innervation. 1540: I discussed the patient's case with Dr. Mills-Cardiology who recommends that the patient be admitted to the hospital. 1550: I discussed the patient's case with Marily Cuellar who will evaluate the patient for further hospitalization. 1600: I checked on the patient and updated him on his results and his admission status. The patient agreed to admission and understands the plan of care. Consultations Consultation #1: Dr. Chacon- Vascular Surgery Time: 14:40 Consultation #2: Dr. SotomayorCardiology Time: 15:40 Consultation #3: Marily Cuellar Time: 15:50 Administered Medications Heparin Sodium/Dextrose (Heparin Sodium/Dextrose) 25,000 units in 500 mls @ 29 mls/hr IV .[id number] [facility]; Protocol Stop: 12/20/18 17:44 Last Titration: 11/20/18 19:34 Dose: 1,450 units/hr, 29 mls/hr Documented by: [id number] Cosigned by: [id number] Admin: 11/20/18 17:40 Dose: 1,450 units/hr, 29 mls/hr Documented by: [id number] Cosigned by: [id number] Discontinued Medications Heparin Sodium (Porcine) (Heparin Sodium (Porcine)) Confirm Administered Dose 10,000 units .ROUTE .[facility]-MED ONE Stop: 11/20/18 17:36 Last Admin: 11/20/18 17:39 Dose: 6,000 units Documented by: [id number] Cosigned by: [id number] Heparin Sodium (Porcine) (Heparin Iv Bolus) 6,000 units IV NOW STA Stop: 11/20/18 17:37 Last Admin: 11/20/18 17:40 Dose: Not Given Documented by: [id number] Heparin Sodium/Dextrose () 1 ea IV NOW STA; Protocol Stop: 11/20/18 15:44 Last Admin: 11/20/18 17:41 Dose: Not Given Documented by: [id number] Heparin Sodium/Dextrose (Heparin Sodium/Dextrose) Confirm Administered Dose 25,000 units IV .[facility]-MED ONE Stop: 11/20/18 17:02 Last Admin: 11/20/18 17:41 Dose: Not Given Documented by: [id number] Medical Decision Making Differential Diagnosis Differential diagnosis: Etiologies such as DVT, vascular ischemia, radiculopathy, fracture, hematoma/contusion, myositis, abscess, septic arthritis cellulitis, joint effusion, trauma, lymphedema, idiopathic, CHF, as well as others were entertained. Medical Records Attestation: I reviewed the patient's medical records. Home Medications Current Medication List: was personally reviewed by me Laboratory Data Attestation: I reviewed the patient's lab results. Result diagrams: 11/20/18 14:30 11/20/18 14:30 Lab Results 11/20/18 11/20/18 11/20/18 Range/Units 14:30 14:30 14:30 WBC 7.28 (4.8-10.8) K/uL RBC 4.70 (4.7-6.1) M/uL Hgb 14.9 (14.0-18.0) g/dL Hct 44.4 (42-52) % MCV 94.5 (80-100) fL MCH 31.7 (25-34) pg MCHC 33.6 (32-36) g/dL RDW Std Deviation 47.6 H (36.4-46.3) fL RDW Coeff of Yuly 13.8 (11.5-14.5) % Plt Count 270 (130-400) K/uL MPV 9.5 (7.4-10.4) fL Immature Gran % (Auto) 0.5 % Neut % (Auto) 61.8 % Lymph % (Auto) 20.2 % Bay % (Auto) 14.0 % Eos % (Auto) 3.0 % Baso % (Auto) 0.5 % Immature Gran # (Auto) 0.04 H (0.00-0.02) K/uL Neut # (Auto) 4.49 (1.4-6.5) K/uL Lymph # (Auto) 1.47 (1.2-3.4) K/uL Bay # (Auto) 1.02 H (0.11-0.59) K/uL Eos # (Auto) 0.22 (0-0.5) K/uL Baso # (Auto) 0.04 (0-0.2) K/uL PT 10.5 (9.0-12.0) Seconds INR 1.0 (0.9-1.1) APTT 24.2 (21.0-31.0) Seconds PTT Ratio 0.9 Sodium 139 (136-145) mmol/L Potassium 4.1 (3.5-5.1) mmol/L Chloride 107 (98-107) mmol/L Carbon Dioxide 27 (21-32) mmol/L Anion Gap 6.0 (3-11) BUN 17 (7-18) mg/dl Creatinine 1.25 (0.6-1.4) mg/dl Est Cr Clr Drug Dosing 51.3 ml/min Est GFR ( Amer) 61.3 Est GFR (Non-Af Amer) 52.9 BUN/Creatinine Ratio 13.5 (10-20) Glucose 90 (70-99) mg/dl Calcium 8.6 (8.5-10.1) mg/dl Total Bilirubin 0.3 (0.2-1) mg/dl AST 48 H (15-37) U/L ALT 67 (12-78) U/L Alkaline Phosphatase 100 (45-117) U/L Troponin I 0.329 H* (0-0.045) ng/ml NT-Pro-B Natriuret Pep 1169 (0-1800) pg/ml Total Protein 7.1 (6.4-8.2) gm/dl Albumin 3.2 L (3.4-5.0) gm/dl Globulin 3.9 (2.5-4.0) gm/dl Albumin/Globulin Ratio 0.8 L (0.9-2) 11/20/18 Range/Units 19:41 WBC (4.8-10.8) K/uL RBC (4.7-6.1) M/uL Hgb (14.0-18.0) g/dL Hct (42-52) % MCV (80-100) fL MCH (25-34) pg MCHC (32-36) g/dL RDW Std Deviation (36.4-46.3) fL RDW Coeff of Yuly (11.5-14.5) % Plt Count (130-400) K/uL MPV (7.4-10.4) fL Immature Gran % (Auto) % Neut % (Auto) % Lymph % (Auto) % Bay % (Auto) % Eos % (Auto) % Baso % (Auto) % Immature Gran # (Auto) (0.00-0.02) K/uL Neut # (Auto) (1.4-6.5) K/uL Lymph # (Auto) (1.2-3.4) K/uL Bay # (Auto) (0.11-0.59) K/uL Eos # (Auto) (0-0.5) K/uL Baso # (Auto) (0-0.2) K/uL PT (9.0-12.0) Seconds INR (0.9-1.1) APTT (21.0-31.0) Seconds PTT Ratio Sodium (136-145) mmol/L Potassium (3.5-5.1) mmol/L Chloride (98-107) mmol/L Carbon Dioxide (21-32) mmol/L Anion Gap (3-11) BUN (7-18) mg/dl Creatinine (0.6-1.4) mg/dl Est Cr Clr Drug Dosing ml/min Est GFR ( Amer) Est GFR (Non-Af Amer) BUN/Creatinine Ratio (10-20) Glucose (70-99) mg/dl Calcium (8.5-10.1) mg/dl Total Bilirubin (0.2-1) mg/dl AST (15-37) U/L ALT (12-78) U/L Alkaline Phosphatase (45-117) U/L Troponin I 0.349 H* (0-0.045) ng/ml NT-Pro-B Natriuret Pep (0-1800) pg/ml Total Protein (6.4-8.2) gm/dl Albumin (3.4-5.0) gm/dl Globulin (2.5-4.0) gm/dl Albumin/Globulin Ratio (0.9-2) Imaging Data Radiologist's Impression: Radiology results as stated below per my review and the radiologist's interpretation: XR chest 1V portable CLINICAL HISTORY: arm pain, elevated trop COMPARISON STUDY: 06/27/2017 FINDINGS: The heart is mildly enlarged. There is left subclavian dual-chamber central venous pacemaker. There is no failure. There is no focal pulmonary consolidation. There are no pleural effusions.[ IMPRESSION: No active disease in the chest. Electronically signed by: Luigi Leal M.D. 11/20/2018 3:34 PM ECG Data Attestation: I personally reviewed and interpreted this ECG as follows: Indication: other (blood clot) Rate (beats per minute): 60 Rhythm: other (atrially paced, ventricularly paced) Findings: + other (nonspecific T wave changes); no ST elevation Comparison ECG Date: from (06/27/17) Additional Comments: AV pacing delay and irregularity Blood Pressure Blood Pressure Findings: Normal blood pressure MDM Narrative 83-year-old gent with history of seizure disorder and CAD lung with some chronic kidney disease presenting today complaining of left upper arm swelling. Started 7 days ago. Did travel several weeks ago but seem disparate from current event. Denies any leg swelling right arm swelling. Patient is left-henderson ded. Some fullness from the shoulder down to his arm with evidence of swelling. No significant evidence of cellulitis or fevers reported. No trauma history. Outpatient ultrasound does show DVT here. Basic laboratory studies were completed here to evaluate kidney function and along with hemoglobin. EKG shows paced rhythm but seems to be some significant delay in AV conduction concern for pacemaker sensing issues although there is some baseline tremor apparent - ?afib. Patient does have a IV dye allergy with hives. Discussed this case with her vascular surgeon on-call especially since there is additional DVT noted in the subclavian and internal jugular vein. In discussion of the case he did not recommend any additional intervention other than anticoagulation. Troponin slightly positive possibly from PE. Not hypoxic or having significant chest pain but recent negative outpatient stress and echocardiogram about 2 weeks ago thinks this is less likely to be ACS. Did discuss with cardiology who agrees with anticoagulation and wants to evaluate further for pacemaker issues as well. Discussed with the [facility] hospitalist for admission and started on IV heparin drip and bolus. Advised patient and . Impression & Plan Arm DVT (deep venous thromboembolism), acute, ST elevation myocardial infarction (STEMI), Arrhythmia Critical Care Time I have personally spent greater than 30 minutes of critical care time in the direct management of this patient. This includes bedside care, interpretation of diagnostic studies, and testing, discussion with consultants, patient, and family members, and other required patient management activities. This 30 minutes is in excess of all separately billable procedures. Critical Care Time: Yes Total Critical Care Time: 30 Discharge Plan Visit Data *Final* Discharge Date/Time: 11/20/18 19:14 Chief Complaint: Arm Pain Stated Complaint: BLOOD CLOT IN LEFT ARM ED Provider: Haider Vines Discharge Problem: Arm DVT (deep venous thromboembolism), acute, ST elevation myocardial infarction (STEMI), Arrhythmia Patient Disposition: Admitted As Inpatient Discharge Instructions Interventions: ED Discharge Assessment Last Done: 11/20/18 19:14 The scribe's documentation has been prepared under my direction and personally reviewed by me in its entirety. I confirm that the note above accurately reflects all work, treatment, procedures, and medical decision making performed by me.
[2018-11-20] MEDS ORDERED: HEPARIN 25000 UNIT/500 ML D5W IV ONE (17:01)
[2018-11-20] MEDS ORDERED: HEPARIN SOD 5,000 UNIT/0.5 ML VIAL ONE (17:35)
[2018-11-20] MEDS ORDERED: HEPARIN BOLUS ED USE ONLY IV STA (17:36)
[2018-11-20] MEDS: HEPARIN STANDARD DEXTROSE 25,000 UNITS/500 ML IV SCH (17:40)
--- NOTE | 2018-11-20 19:06 | Cardiology Consultation ---
Date of Consultation November 20, 2018 Assessment & Plan (1) Deep venous thrombosis of left upper extremity: Significant left subclavian vein, left axillary vein, left internal jugular vein DVT, and the same side as his dual-chamber pacemaker device that had been placed in 2014. The patient's left upper extremity swelling came on somewhat abruptly over the last few days with no previous symptoms. Diagnostics: This does raise concern of possible hypercoagulable state. The patient's past believe that he had a colonoscopy about 5 years ago, but in the record I believe it was closer to 11 years ago, so he is probably due for a repeat. In terms of other age-appropriate cancer screenings, I do not see a recent PSA and I will therefore order it. Therapeutics: Proceed with unfractionated heparin. Discussion with the patient and his spouse regarding options of oral anticoagulation with Coumadin versus a direct oral anticoagulant. The patient is over 83 years old, and he has a baseline That a GFR in the range of 40 mL/min/m. His direct oral anticoagulant dose would therefore have to be dosed accordingly. Based on the nature of his thrombus, I think it would be most appropriate to proceed with a trial of heparin to Coumadin. If he has difficulty tolerating Coumadin in terms of labile INR readings, could consider transition to a direct oral anticoagulant in a few months. I think he will need a minimum of 3 months of anticoagulation, and possibly long-term anticoagulation after that. Would likely proceed with a repeat venous duplex after an interval of about 3 months for reassessment. (2) CAD (coronary artery disease): Patient had vague chest discomfort. He has a known chronic occlusion of the right coronary artery and anteroseptal repolarization abnormalities on EKG that are chronic dating back several years. He had vague chest discomfort yesterday and a mild troponin I elevation in the range of 0.3 NG per mL. I am not convinced that this is suggestive of angina or myocardial ischemia, given the degree of his significant DVT, clinically he may very well have pulmonary embolism as well. I do not think it is necessary to proceed with further imaging to prove this. He is hemodynamically stable and is not hypoxic. His right ventricular systolic function is normal on echocardiogram without evidence of RV strain and if coexistent pulmonary embolism was diagnosed by imaging, I do not think it would change his management of his needing systemic anticoagulation. (3) Syncope and collapse: The patient has a long-standing history of seizure disorder. He has had recurrent loss of consciousness/loss of postural tone episodes since June of last year and his spouse describes that he has been having about one episode per month. Device checks including that performed yesterday revealed normal device function without significant arrhythmia. His symptoms do not sound as if they are obviously due to orthostatic hypotension. It is noted that his device is programmed to have a long AV delay, around 400 ms to promote [place] ventricular conduction. I discussed his settings with Dr Swann of [facility] and we have decided to reduce his AV delay and allow atrial ventricular sequential pacing to see if this helps his symptoms at all. We will have a [employer] hospital sales representative come to enact the device changes. (4) Elevated troponin: As noted above. Doubt this is due to an acute coronary syndrome. Resting echo= normal LV wall motion and normal biventricular systolic function. History of Present Illness History of Present Illness Isabela Story is an 83 year old male seen in cardiology consultation per the request of Marily Russell PA-C for the evaluation of elevated troponin, DVT, pacemaker interrogation. This is the first time that I have seen Mr. Story. He however is well-known to our cardiology practice having recently followed closely with Tristen Otto PA-C of our practice and has been followed by Dr. Swann of [facility] having had insertion of a [employer] dual-chamber permanent pacemaker in 2014. The patient has recently been followed closely by cardiology as an outpatient for recurrent symptoms of syncope and near syncope. For 5 days ago on Sunday into Sunday the patient described left neck discomfort. By Sunday he noted mild swelling of his hand which progressed prompting him to contact our office and he underwent a venous duplex study yesterday 11/21/18 revealing deep venous thrombosis involving the left internal jugular vein, left subclavian vein, left axillary vein. He was referred to the emergency room and unfractionated heparin anticoagulation was initiated last evening. He also complained of mild vague chest discomfort. After being on heparin overnight last night, him and his spouse appreciate that the swelling in his left arm has improved although it is still there to a moderate degree. He notes no chest discomfort. PAST CARDIAC /MEDICAL HISTORY: 1. Atherosclerotic coronary heart disease with prior coronary interventions to the right coronary artery with chronic right coronary artery occlusion in 2000, and moderate diffuse coronary atherosclerosis noted elsewhere 2. History of symptomatic bradycardia for which Dual-Chamber Pacemaker Insertion Took Pl. in June 2015 3. Hypertension 4. Dyslipidemia 5. Stage III chronic kidney disease 6. Dementia 7. Seizure disorder Allergies Allergy/AdvReac Type Severity Reaction Status Date / Time Iodinated Contrast- Oral and Allergy Unknown ` Verified 11/20/18 15:19 IV Dye Home Medications Home Medications Medication Instructions Recorded Confirmed Type amiodarone [Pacerone] 200 mg PO DAILY 11/20/18 11/20/18 History amlodipine [Norvasc] 5 mg PO DAILY 11/20/18 11/20/18 History aspirin [Aspir-Low] 81 mg PO DAILY 11/20/18 11/20/18 History donepezil [Aricept] 10 mg PO DAILY 11/20/18 11/20/18 History finasteride [Proscar] 5 mg PO DAILY 11/20/18 11/20/18 History levetiracetam [Keppra XR] 1,500 mg PO HS 11/20/18 11/20/18 History levetiracetam [Keppra XR] 500 mg PO HS 11/20/18 11/20/18 History levothyroxine 88 mcg PO DAILY 11/20/18 11/20/18 History memantine [Namenda] 10 mg PO BID 11/20/18 11/20/18 History metoprolol succinate [Toprol XL] 50 mg PO DAILY 11/20/18 11/20/18 History nitroglycerin [Nitrostat] 0.4 mg SUBLINGUAL UD PRN 11/20/18 11/20/18 History Patient History Medical History Non-sustained ventricular tachycardia (Chronic) Hypertension (Chronic) CAD (coronary artery disease) (Chronic) History of prior RCA interventions with chronic RCA occlusion Symptomatic sinus bradycardia (Chronic) Dyslipidemia (Chronic) Seizure disorder (Chronic) Sinus node dysfunction (Chronic) CKD (chronic kidney disease), stage III (Chronic) GERD (gastroesophageal reflux disease) (Chronic) Surgical History S/P placement of cardiac pacemaker (Chronic) H/O coronary artery balloon dilation (Chronic) H/O inguinal hernia repair (Chronic) Family History Other Family history non-contributory Social History Communication Ability: Effective Beliefs That Will Affect Care: None marital status: Current Living Situation: Spouse Feels Safe at Home: Yes Smoking Status: Never smoker Hx Alcohol Use: Yes Hx Substance Use: No Review of Systems 10 point review of systems is reviewed and is negative with the exception of that above Physical Exam Vital Signs (Past 24 Hours): Last Vital Signs Temp 36.6 C 11/20/18 13:16 Pulse 60 11/20/18 18:30 Resp 17 11/20/18 18:30 BP 159/80 H 11/20/18 18:30 Pulse Ox 93 11/20/18 18:30 Physical Exam: General: no acute distress and stated age Eyes: conjunctiva are pink and non-injected, sclera clear Neck: normal jugular venous pulse, no hepatojugular reflux Chest: normal shape and normal respiratory effort Lungs: clear to auscultation and percussion Cardiac Exam: - regular heart sounds, no murmurs, rubs, or gallops, no jugular venous distention Abdomen: abdomen soft, non-tender, no abnormal masses and no hepatosplenomegaly Extremities: no edema and no cyanosis Neuro:awake, conversant, but poor historian, spouse answers most questions. Results & Data Laboratory Results Cardiac Enzymes 11/20/18 11/21/18 Range/Units 19:41 02:01 Troponin I 0.349 H* 0.222 H* (0-0.045) ng/ml Coagulation 11/20/18 11/21/18 11/21/18 Range/Units 23:36 01:05 02:01 PT 11.0 (9.0-12.0) Seconds APTT > 139.0 H* 91.0 H* (21.0-31.0) Seconds 11/21/18 11/21/18 Range/Units 08:09 13:52 PT (9.0-12.0) Seconds APTT 70.8 H* 64.3 H* (21.0-31.0) Seconds CBC 11/21/18 Range/Units 02:01 WBC 6.54 (4.8-10.8) K/uL RBC 4.57 L (4.7-6.1) M/uL Hgb 14.4 (14.0-18.0) g/dL Hct 42.6 (42-52) % Plt Count 263 (130-400) K/uL Comprehensive Metabolic Panel 11/21/18 Range/Units 02:01 Sodium 141 (136-145) mmol/L Potassium 3.6 (3.5-5.1) mmol/L Chloride 108 H (98-107) mmol/L Carbon Dioxide 26 (21-32) mmol/L BUN 15 (7-18) mg/dl Creatinine 1.11 (0.6-1.4) mg/dl Glucose 91 (70-99) mg/dl Calcium 8.1 L (8.5-10.1) mg/dl Intake and Output 11/21/18 11/21/18 11/21/18 06:59 14:59 22:59 Intake Total 139.633 / 768.500 930.966 / 930.966 Output Total 950 / 1650 200 / 200 Balance -810.367 / -881.500 730.966 / 730.966 Intake: IV 39.633 / 188.500 290.966 / 290.966 HEPARIN SODIUM/DEXTROSE 25,000 39.633 / 188.500 290.966 / 290.966 units In 500 ml @ 1,100 UNITS/ HR 22 mls/hr IV [facility][id number] [facility] Rx #:[id number] Oral 100 / 580 640 / 640 Output: Urine 950 / 1650 200 / 200 Other: Weight 92.1 kg Diagnostic Findings EKG performed 11/21/18 at 6:03 AM revealed atrial paced rhythm with long AV delay, ST-T wave abnormality noted in the anterior precordial leads suggestive of possible ischemia. Unchanged compared to prior from 11/20/18. -In comparison to prior EKGs, similar ST changes were noted on EKGs at [facility] dating back to 2017, as well as in the office dating back to 2015. Echocardiogram performed today 11/21/18 reviewed independently: Mild concentric left ventricular hypertrophy was present normal right ventricular chamber size and systolic function. No left ventricular wall motion abnormalities. Left ventricular ejection fraction equals 60-65%. Medications Administered Cardiac Enzymes 11/20/18 11/21/18 Range/Units 19:41 02:01 Troponin I 0.349 H* 0.222 H* (0-0.045) ng/ml Coagulation 11/20/18 11/21/18 11/21/18 Range/Units 23:36 01:05 02:01 PT 11.0 (9.0-12.0) Seconds APTT > 139.0 H* 91.0 H* (21.0-31.0) Seconds 11/21/18 11/21/18 Range/Units 08:09 13:52 PT (9.0-12.0) Seconds APTT 70.8 H* 64.3 H* (21.0-31.0) Seconds CBC 11/21/18 Range/Units 02:01 WBC 6.54 (4.8-10.8) K/uL RBC 4.57 L (4.7-6.1) M/uL Hgb 14.4 (14.0-18.0) g/dL Hct 42.6 (42-52) % Plt Count 263 (130-400) K/uL Comprehensive Metabolic Panel 11/21/18 Range/Units 02:01 Sodium 141 (136-145) mmol/L Potassium 3.6 (3.5-5.1) mmol/L Chloride 108 H (98-107) mmol/L Carbon Dioxide 26 (21-32) mmol/L BUN 15 (7-18) mg/dl Creatinine 1.11 (0.6-1.4) mg/dl Glucose 91 (70-99) mg/dl Calcium 8.1 L (8.5-10.1) mg/dl Intake and Output 11/21/18 11/21/18 11/21/18 06:59 14:59 22:59 Intake Total 139.633 / 768.500 930.966 / 930.966 Output Total 950 / 1650 200 / 200 Balance -810.367 / -881.500 730.966 / 730.966 Intake: IV 39.633 / 188.500 290.966 / 290.966 HEPARIN SODIUM/DEXTROSE 25,000 39.633 / 188.500 290.966 / 290.966 units In 500 ml @ 1,100 UNITS/ HR 22 mls/hr IV .[id number] [facility] Rx #:[id number] Oral 100 / 580 640 / 640 Output: Urine 950 / 1650 200 / 200 Other: Weight 92.1 kg
[2018-11-20] MEDS ORDERED: ACETAMINOPHEN 325 MG TAB PO PRN (19:32)
[2018-11-20] MEDS ORDERED: WARFARIN SOD 5 MG TAB PO ONE (19:32)
--- NOTE | 2018-11-20 19:32 | History & Physical Report ---
Date of Service November 20, 2018 Assessment & Plan (1) Deep venous thrombosis of left upper extremity: -Admit to telemetry -Patient sent to the ED by referral of outpatient cardiology provider for evaluation of left arm swelling and venous duplex that demonstrated extensive DVT -Given extensiveness of DVT, vascular surgery was contacted by ED provider who recommended heparin for now -No risk factors for DVT identified, hypercoagulable panel obtained -Started on IV heparin in the ED, will continue with; also will start Coumadin with first dose being this evening -Given mild troponin elevation, consider PE as well however patient is currently stable from a pulmonary standpoint and unable to obtain CTA chest due to underlying renal disease and dye allergy. Noted that a positive CTA chest for PE would not change control manager at this point. (2) Elevated troponin: (3) CAD (coronary artery disease): -Initial troponin 0.329; EKG does not demonstrate any acute ST changes -No reports of chest pain, left shoulder/neck pain reported from a few days ago likely secondary to extensive left upper extremity DVT -PE consideration as above, will check resting echo to evaluate for right heart strain -Continue aspirin and beta-david; statin was discontinued as an outpatient secondary to elevated LFTs (4) S/P placement of cardiac pacemaker: (5) Symptomatic sinus bradycardia: -Initial EKG demonstrated paced rhythm with long AV interval; there was concern for possible pacer malfunction and interrogation was performed that demonstrated normal function -Cardiology consult, input appreciated (6) Non-sustained ventricular tachycardia: -Continue amiodarone (7) Hypertension: -BP controlled, continue amlodipine and metoprolol (8) CKD (chronic kidney disease), stage III: - baseline creat runs in the mid ones - creat noted to be 1.25 today - continue to monitor, avoid nephrotoxic agents when able (9) Seizure disorder: -Continue Keppra (10) DVT prophylaxis: -On IV heparin/Coumadin as above History of Present Illness Chief Complaint: Left arm swelling Primary Care Provider: Jordana Hopkins 83-year-old male who was sent to the ED by outpatient cardiology provider for evaluation of left arm swelling and outpatient venous duplex that demonstrated extensive DVT in the left arm. Patient developed left shoulder and left-sided neck pain 5 days ago with subsequent left arm swelling that has been progressively getting worse. Patient's contacted his outpatient cardiology provider who ordered a venous duplex of the left upper extremity that demonstrated no flow in the left internal jugular vein, left subclavian vein, and left axillary vein. Patient denies chest pain and shortness of breath. A couple of months ago, he was having issues with near syncopal events however that has improved once medication adjustments were made. Patient denies any near syncopal events for the past 1 month. No dizziness or diaphoresis. Patient denies abdominal pain, nausea, vomiting, diarrhea. No other recent illnesses, fevers, chills. He denies any urinary symptoms. In the ED, labs show a mildly elevated troponin at 0.329. EKG demonstrates a paced rhythm with long AV interval. There was initial concern for possible pacer malfunction however interrogation was performed that demonstrated normal function. Hypercoagulable panel was obtained and patient was started on IV heparin. Allergies Allergy/AdvReac Type Severity Reaction Status Date / Time Iodinated Contrast- Oral and Allergy Unknown ` Verified 11/20/18 15:19 IV Dye Home Medications Home Medications Medication Instructions Recorded Confirmed Type amiodarone [Pacerone] 200 mg PO DAILY 11/20/18 11/20/18 History amlodipine [Norvasc] 5 mg PO DAILY 11/20/18 11/20/18 History aspirin [Aspir-Low] 81 mg PO DAILY 11/20/18 11/20/18 History donepezil [Aricept] 10 mg PO DAILY 11/20/18 11/20/18 History finasteride [Proscar] 5 mg PO DAILY 11/20/18 11/20/18 History levetiracetam [Keppra XR] 1,500 mg PO HS 11/20/18 11/20/18 History levetiracetam [Keppra XR] 500 mg PO HS 11/20/18 11/20/18 History levothyroxine 88 mcg PO DAILY 11/20/18 11/20/18 History memantine [Namenda] 10 mg PO BID 11/20/18 11/20/18 History metoprolol succinate [Toprol XL] 50 mg PO DAILY 11/20/18 11/20/18 History nitroglycerin [Nitrostat] 0.4 mg SUBLINGUAL UD PRN 11/20/18 11/20/18 History Past Med/Surg History Medical History Non-sustained ventricular tachycardia (Chronic) Hypertension (Chronic) CAD (coronary artery disease) (Chronic) History of prior RCA interventions with chronic RCA occlusion Symptomatic sinus bradycardia (Chronic) Dyslipidemia (Chronic) Seizure disorder (Chronic) Sinus node dysfunction (Chronic) CKD (chronic kidney disease), stage III (Chronic) GERD (gastroesophageal reflux disease) (Chronic) Surgical History S/P placement of cardiac pacemaker (Chronic) H/O coronary artery balloon dilation (Chronic) H/O inguinal hernia repair (Chronic) Family History Other Family history non-contributory Social History Preferred Language: Pakistani Key Maker Required: No Beliefs That Will Affect Care: None Current Living Situation: Spouse Feels Safe at Home: Yes Smoking Status: Never smoker Hx Alcohol Use: Yes Hx Substance Use: No Review of Systems ROS per HPI, all other systems reviewed and negative Physical Exam Vital Signs (Past 24 Hours): Last Vital Signs Temp 36.6 C 11/20/18 13:16 Pulse 60 11/20/18 19:00 Resp 17 11/20/18 19:00 BP 146/77 H 11/20/18 19:00 Pulse Ox 93 11/20/18 19:00 Constitutional: WD/WN, vitals as above Eyes: PERRL, conjunctivae normal, anicteric sclerae ENMT: external ear and nose normal, oropharynx normal Respiratory: normal respiratory effort, lungs clear to auscultation Cardiovascular: Rate/Rhythm: regular rate and regular rhythm Vessels: normal peripheral pulses Extremities: no edema (BLE) Gastrointestinal (Abdomen): normal bowel sounds, soft, nontender, no hepatosplenomegaly Musculoskeletal: no cyanosis or clubbing, extremities motor strength 5/5 Extremities: + upper extremity abnormal to inspection (+3 edema left upper extremity with mild erythema, CSM checks intact) Left Skin: no rashes, warm and dry Neurologic: PERRL, EOMI, accommodation nl, no face palsy, no dysarthria Psychiatric: A+Ox3, euthymic affect Results & Data Laboratory Results Laboratory Last Values WBC 7.28 K/uL (4.8-10.8) 11/20/18 14:30 RBC 4.70 M/uL (4.7-6.1) 11/20/18 14:30 Hgb 14.9 g/dL (14.0-18.0) 11/20/18 14:30 Hct 44.4 % (42-52) 11/20/18 14:30 MCV 94.5 fL (80-100) 11/20/18 14:30 MCH 31.7 pg (25-34) 11/20/18 14:30 MCHC 33.6 g/dL (32-36) 11/20/18 14:30 RDW Std Deviation 47.6 fL (36.4-46.3) H 11/20/18 14:30 RDW Coeff of Yuly 13.8 % (11.5-14.5) 11/20/18 14:30 Plt Count 270 K/uL (130-400) 11/20/18 14:30 MPV 9.5 fL (7.4-10.4) 11/20/18 14:30 Immature Gran % (Auto) 0.5 % 11/20/18 14:30 Neut % (Auto) 61.8 % 11/20/18 14:30 Lymph % (Auto) 20.2 % 11/20/18 14:30 [place] % (Auto) 14.0 % 11/20/18 14:30 Eos % (Auto) 3.0 % 11/20/18 14:30 Baso % (Auto) 0.5 % 11/20/18 14:30 Immature Gran # (Auto) 0.04 K/uL (0.00-0.02) H 11/20/18 14:30 Neut # (Auto) 4.49 K/uL (1.4-6.5) 11/20/18 14:30 Lymph # (Auto) 1.47 K/uL (1.2-3.4) 11/20/18 14:30 [place] # (Auto) 1.02 K/uL (0.11-0.59) H 11/20/18 14:30 Eos # (Auto) 0.22 K/uL (0-0.5) 11/20/18 14:30 Baso # (Auto) 0.04 K/uL (0-0.2) 11/20/18 14:30 PT 10.5 Seconds (9.0-12.0) 11/20/18 14:30 INR 1.0 (0.9-1.1) 11/20/18 14:30 APTT 24.2 Seconds (21.0-31.0) 11/20/18 14:30 PTT Ratio 0.9 11/20/18 14:30 Sodium 139 mmol/L (136-145) 11/20/18 14:30 Potassium 4.1 mmol/L (3.5-5.1) 11/20/18 14:30 Chloride 107 mmol/L (98-107) 11/20/18 14:30 Carbon Dioxide 27 mmol/L (21-32) 11/20/18 14:30 Anion Gap 6.0 (3-11) 11/20/18 14:30 BUN 17 mg/dl (7-18) 11/20/18 14:30 Creatinine 1.25 mg/dl (0.6-1.4) 11/20/18 14:30 Est Cr Clr Drug Dosing 51.3 ml/min 11/20/18 14:30 Est GFR ( Amer) 61.3 11/20/18 14:30 Est GFR (Non-Af Amer) 52.9 11/20/18 14:30 BUN/Creatinine Ratio 13.5 (10-20) 11/20/18 14:30 Glucose 90 mg/dl (70-99) 11/20/18 14:30 Calcium 8.6 mg/dl (8.5-10.1) 11/20/18 14:30 Total Bilirubin 0.3 mg/dl (0.2-1) 11/20/18 14:30 AST 48 U/L (15-37) H 11/20/18 14:30 ALT 67 U/L (12-78) 11/20/18 14:30 Alkaline Phosphatase 100 U/L (45-117) 11/20/18 14:30 Troponin I 0.329 ng/ml (0-0.045) H* 11/20/18 14:30 NT-Pro-B Natriuret Pep 1169 pg/ml (0-1800) 11/20/18 14:30 Total Protein 7.1 gm/dl (6.4-8.2) 11/20/18 14:30 Albumin 3.2 gm/dl (3.4-5.0) L 11/20/18 14:30 Globulin 3.9 gm/dl (2.5-4.0) 11/20/18 14:30 Albumin/Globulin Ratio 0.8 (0.9-2) L 11/20/18 14:30 Diagnostic Findings LEFT UPPER EXTREMITY VENOUS DOPPLER (performed at [facility] on 11/20) Duplex examination includes visualization of the left internal jugular vein, innominate vein, subclavian vein and axillary vein. There are no echogenic densities. Doppler signals demonstrate spontaneous cyclic flow dynamics. The brachial veins demonstrate normal compressibility. Left internal jugular vein has no flow, is non-compressible and echogenic. Left subclavian vein has no flow, is non-compressible and echogenic. Left axillary vein has no flow, is non-compressible and echogenic. Left brachial vein compressible. The contralateral subclavian vein is patent and demonstrates respirophasic flow. IMPRESSION: Acute deep venous thrombosis in the left upper extremity in the segments as noted above. Thrombosis of the left internal jugular vein is demonstrated. Superficial thrombophlebitis of the left upper extremity noted in the basilic vein. Code Status & VTE Plan Code Status Patient is a full code as per my discussion with him. VTE Prophylaxis Plan VTE Prophylaxis will be ordered: Yes Supervising Physician Co-Signing Physician Notes I have seen and examine the patient with nurse practitioner and agree with the assessment and plan as above and would like to comment that 83 year old M sent from cardiology clinic for left upper extremity DVT. currently anticoagulated with anticoagulation treatment of heparin drip and first dose of warfarin given on admission day with plans likley to continue heparin drip to bridge to therapeautic INR of 2 to 3. This plan was explained to patient and his Isabel [phone] at the bedside. Patient will benefit fr om echocardiogram as he has thromboembolism and elevated initial troponin; patient has history of coronary artery disease. The patient denies chest pain. On physical exam Extremities: left arm with the DVT is swollen, patient able to move the extremities and fingers; no acute swelling of the legs Neck: not deficits in neck movements Heart: paced Lungs: clear to auscultation bilaterally abdomen: soft nontender, bowel sounds present Other medical issues as explained by nurse practitioner Patient has been admitted by Dr. Fischer on 11/20/18. Patient will be followed by colleague Dr. Hawkins starting 11/21/18
[2018-11-20] MEDS ORDERED: LEVETIRACETAM 500 MG PO SCH (21:00)
[2018-11-20] MEDS: levETIRAcetam 500 MG TAB PO SCH (22:10)
[2018-11-20] MEDS: MEMANTINE HCL 10 MG TAB PO SCH (22:10)
[2018-11-21 00:04] LABS: Partial Thromboplastin Ratio > 5.1
[2018-11-21 00:12] LABS: Partial Thromboplastin Time > 139.0 Seconds (21.0-31.0)
[2018-11-21 01:54] LABS: Partial Thromboplastin Ratio 3.4
[2018-11-21 02:19] LABS: Hematocrit (blood only) 42.6 % (42-52); Hemoglobin 14.4 g/dL (14.0-18.0); Mean Corpuscular Hgb Conc 33.8 g/dL (32-36); Mean Corpuscular Volume 93.2 fL (80-100); Mean Platelet Volume 9.4 fL (7.4-10.4); Platelet Count 263 K/uL (130-400); RDW Coefficient of Variation 13.7 % (11.5-14.5); RDW Standard Deviation 46.7 fL (36.4-46.3); Red Blood Count 4.57 M/uL (4.7-6.1); White Blood Count 6.54 K/uL (4.8-10.8)
[2018-11-21 02:32] LABS: INR 1.1 (0.9-1.1)
[2018-11-21 02:38] LABS: BUN Creatinine Ratio 13.8 (10-20); Calcium 8.1 mg/dl (8.5-10.1); Creatinine Clr Calc Pharmacy 57.5 ml/min; Est GFR (African American) 70.8; Est GFR (Non-African American) 61.1; Potassium 3.6 mmol/L (3.5-5.1)
[2018-11-21 02:50] LABS: Troponin I 0.222 ng/ml (0-0.045)
[2018-11-21] MEDS: LEVOTHYROXINE SODIUM 88 MCG TABLET PO SCH (06:02)
[2018-11-21] MEDS ORDERED: PERFLUTREN LIPID MICROSPHERE (DEFINITY) IV ONE (06:46)
[2018-11-21] MEDS: METOPROLOL SUCC 25MG EXT REL TAB PO SCH (08:08)
[2018-11-21] MEDS: AMLODIPINE BESYLATE 5 MG TAB PO SCH (08:08)
[2018-11-21] MEDS: AMIODARONE 200 MG TAB PO SCH (08:08)
[2018-11-21] MEDS: MEMANTINE HCL 10 MG TAB PO SCH ×2 (08:08→20:46)
[2018-11-21] MEDS: ASPIRIN 81 MG ECTAB PO SCH (08:08)
[2018-11-21] MEDS: DONEPEZIL HCL 10 MG TAB PO SCH (08:08)
[2018-11-21] MEDS: levETIRAcetam 500 MG TAB PO SCH ×2 (08:09→20:46)
[2018-11-21] MEDS: FINASTERIDE 5 MG TAB PO SCH (08:09)
[2018-11-21 08:53] LABS: Partial Thromboplastin Ratio 2.6
[2018-11-21 09:00] LABS: Partial Thromboplastin Time 70.8 Seconds (21.0-31.0)
--- NOTE | 2018-11-21 13:35 | Hospitalist Progress Note ---
Date of Service November 21, 2018 Assessment & Plan (1) Deep venous thrombosis of left upper extremity: Sent to the ED by his cardiology for evaluation of left arm swelling and venous duplex that demonstrated extensive DVT Possible related to Pacemaker Onn IV heparin drip bridging with coumadin Hypercoagulable panel pending Discussion with family about Wafarin and the NOAC agents Major side effect discussed with patient such as bleeding Will need to monitor pt closely while on anticoagulant due to fall risk from seizure and syncopal episode Cardiology on board Vascular consult cancelled (no indication for IVC filter placement) (2) Elevated troponin: (3) CAD (coronary artery disease): Initial troponin 0.329; Troponin trending down to 0.22 EKG showed no ischemic changes Denies any chest pain Continue aspirin and beta-david ECHO showed no wall motion abnormality with EF 60-65 % (4) S/P placement of cardiac pacemaker: (5) Symptomatic sinus bradycardia: Initial EKG demonstrated paced rhythm with long AV interval; there was concern for possible pacer malfunction and interrogation was performed that demonstrated normal function Cardio on board Stable (6) Non-sustained ventricular tachycardia: Continue amiodarone (7) Hypertension: continue amlodipine and metoprolol Stable (8) CKD (chronic kidney disease), stage III: Baseline creat runs in the mid ones Creatinine 1.1 today Continue monitor BMP Avoid nephrotoxic agents (9) Seizure disorder: Continue Keppra Seizure precaution (10) DVT prophylaxis: On IV heparin/Coumadin CODE STATUS FULL CODE Subjective Pt was seen and examined Lying in bed with no distress eating lunch with at bedside Pt said that he feels fine Denies any chest pain, palpitation, dizziness and SOB Physical Exam Vital Signs (Past 24 Hours): Last Vital Signs Temp 36.7 C 11/21/18 11:11 Pulse 60 11/21/18 11:11 Resp 16 11/21/18 11:11 BP 109/67 11/21/18 11:11 Pulse Ox 94 11/21/18 11:11 Physical Exam: General- No acute distress Head- atraumatic Eyes- PERRL, EOMI, ENT- oropharynx clear Neck- supple, no JVD Lungs- clear to auscultation Heart- regular rhythm; no murmur Abdomen- normal bowel sounds, soft, nontender Extremities- no calf tenderness, +NATE edema Neuro- alert, oriented x 3; PERRL, EOMI; no facial palsy; no dysarthria Skin- warm & dry
[2018-11-21] MEDS: HEPARIN STANDARD DEXTROSE 25,000 UNITS/500 ML IV SCH (13:49)
[2018-11-21 14:27] LABS: Partial Thromboplastin Ratio 2.4
[2018-11-21 14:31] LABS: Partial Thromboplastin Time 64.3 Seconds (21.0-31.0)
[2018-11-21] MEDS ORDERED: WARFARIN SOD 5 MG TAB PO ONE (16:18)
[2018-11-22] MEDS: LEVOTHYROXINE SODIUM 88 MCG TABLET PO SCH (05:42)
[2018-11-22 05:57] LABS: Basophils # (auto) 0.06 K/uL (0-0.2); Basophils % (auto) 0.8 %; Eosinophils # (auto) 0.29 K/uL (0-0.5); Hematocrit (blood only) 41.8 % (42-52); Hemoglobin 14.2 g/dL (14.0-18.0); Immature Granulocytes # (auto) 0.04 K/uL (0.00-0.02); Immature Granulocytes % (auto) 0.6 %; Lymphocytes # (auto) 2.07 K/uL (1.2-3.4); Lymphocytes % (auto) 28.9 %; Mean Corpuscular Volume 93.1 fL (80-100); Mean Platelet Volume 9.3 fL (7.4-10.4); Monocytes # (auto) 0.93 K/uL (0.11-0.59); Neutrophils # (auto) 3.78 K/uL (1.4-6.5); Neutrophils % (auto) 52.7 %; Platelet Count 236 K/uL (130-400); RDW Coefficient of Variation 13.6 % (11.5-14.5); RDW Standard Deviation 46.7 fL (36.4-46.3); Red Blood Count 4.49 M/uL (4.7-6.1); White Blood Count 7.17 K/uL (4.8-10.8)
[2018-11-22 06:10] LABS: INR 1.1 (0.9-1.1); Prothrombin Time 11.3 Seconds (9.0-12.0)
[2018-11-22 06:27] LABS: Calcium 8.3 mg/dl (8.5-10.1); Creatinine Clr Calc Pharmacy 52.1 ml/min; Est GFR (African American) 62.5; Potassium 3.6 mmol/L (3.5-5.1)
[2018-11-22] MEDS: DONEPEZIL HCL 10 MG TAB PO SCH (07:54)
[2018-11-22] MEDS: METOPROLOL SUCC 25MG EXT REL TAB PO SCH (07:54)
[2018-11-22] MEDS: AMLODIPINE BESYLATE 5 MG TAB PO SCH (07:55)
[2018-11-22] MEDS: AMIODARONE 200 MG TAB PO SCH (07:55)
[2018-11-22] MEDS: FINASTERIDE 5 MG TAB PO SCH (07:55)
[2018-11-22 07:56] LABS: Partial Thromboplastin Ratio 2.7
[2018-11-22] MEDS: ASPIRIN 81 MG ECTAB PO SCH (07:56)
[2018-11-22] MEDS: levETIRAcetam 500 MG TAB PO SCH ×2 (07:56→20:04)
[2018-11-22] MEDS: MEMANTINE HCL 10 MG TAB PO SCH ×2 (07:57→20:04)
[2018-11-22 08:01] LABS: Partial Thromboplastin Time 73.7 Seconds (21.0-31.0)
[2018-11-22] MEDS: HEPARIN STANDARD DEXTROSE 25,000 UNITS/500 ML IV SCH (12:38)
[2018-11-22 13:54] LABS: Partial Thromboplastin Ratio 2.4
[2018-11-22] MEDS ORDERED: WARFARIN SOD 5 MG TAB PO SCH (16:00)
--- NOTE | 2018-11-22 17:15 | Hospitalist Progress Note ---
Date of Service November 22, 2018 Assessment & Plan (1) Deep venous thrombosis of left upper extremity: Sent to the ED by his cardiology for evaluation of left arm swelling and venous duplex that demonstrated extensive DVT Possible related to Pacemaker Onn IV heparin drip bridging with coumadin Hypercoagulable panel pending Discussion with family about Wafarin and the NOAC agents Major side effect discussed with patient such as bleeding Will need to monitor pt closely while on anticoagulant due to fall risk from seizure and syncopal episode Cardiology on board Case discussed with cardiology recommended to continue heparin drip bridging with Coumadin Will need to be on anticoagulant for 3 to 6 months if hypercoagulable work up negative INR goal between 2 to 3 Vascular consult cancelled (no indication for IVC filter placement) Monitor PT/INR (2) Elevated troponin: (3) CAD (coronary artery disease): Mostly demand ischemia Initial troponin 0.329; Troponin trending down to 0.22 EKG showed no ischemic changes Denies any chest pain Continue aspirin and beta-david ECHO showed no wall motion abnormality with EF 60-65 % (4) S/P placement of cardiac pacemaker: (5) Symptomatic sinus bradycardia: Initial EKG demonstrated paced rhythm with long AV interval; there was concern for possible pacer malfunction and interrogation was performed that demonstrated normal function Cardio on board Stable (6) Non-sustained ventricular tachycardia: Continue amiodarone (7) Hypertension: continue amlodipine and metoprolol Stable (8) CKD (chronic kidney disease), stage III: Baseline creat runs in the mid ones Creatinine 1.1 today Continue monitor BMP Avoid nephrotoxic agents (9) Seizure disorder: Continue Keppra Seizure precaution (10) DVT prophylaxis: On IV heparin/Coumadin CODE STATUS FULL CODE Disposition Will discharge once INR therapeutic Subjective Pt was seen and examined Lying in bed with no distress Pt said that he feels fine Denies any chest pain, palpitation, dizziness and SOB Physical Exam Vital Signs (Past 24 Hours): Last Vital Signs Temp 36.5 C 11/22/18 15:51 Pulse 67 11/22/18 15:51 Resp 12 11/22/18 15:51 BP 133/75 11/22/18 15:51 Pulse Ox 94 11/22/18 15:51 Physical Exam: General- No acute distress Head- atraumatic Eyes- PERRL, EOMI, ENT- oropharynx clear Neck- supple, no JVD Lungs- clear to auscultation Heart- regular rhythm; no murmur Abdomen- normal bowel sounds, soft, nontender Extremities- no calf tenderness, +NATE edema Neuro- alert, oriented x 3; PERRL, EOMI; no facial palsy; no dysarthria Skin- warm & dry
--- NOTE | 2018-11-22 18:50 | Cardiology Progress Note ---
Date of Service November 22, 2018 Assessment & Plan (1) Deep venous thrombosis of left upper extremity: Hypercoagulable labs in process. Recommend age appropriate cancer screening, likely due for colonoscopy. I have ordered a PSA. Most likely explanation is anatomical vein variation, and slow flow from pacemaker hardware. Unusual however for this to happen 3 years post device. Recommend heparin to coumadin. (2) Syncope and collapse: Changed pacer settings to shorten AV delay and promote AV sequential pacing. Flomax previously DCd. Urinating OK , but does have some difficulty with urine stream. Continue proscar. Subjective CC: follow up left arms swelling Subjective: left arm better than initial presentation, unchanged compared to yesterday. Mild transient left neck pain. Physical Exam Vital Signs (Past 24 Hours): Last Vital Signs Temp 36.5 C 11/22/18 15:51 Pulse 67 11/22/18 15:51 Resp 12 11/22/18 15:51 BP 133/75 11/22/18 15:51 Pulse Ox 94 11/22/18 15:51 Constitutional: WD/WN, vitals as above Respiratory: normal respiratory effort, lungs clear to auscultation Cardiovascular: RRR, no murmur, no edema Extremities: + edema (1+ left arm edema) Neurologic: conversant, but noted cognitive impairment
[2018-11-23 05:38] LABS: INR 1.2 (0.9-1.1); Partial Thromboplastin Ratio 2.4; Prothrombin Time 12.1 Seconds (9.0-12.0)
[2018-11-23] MEDS: LEVOTHYROXINE SODIUM 88 MCG TABLET PO SCH (06:02)
[2018-11-23 06:12] LABS: Partial Thromboplastin Time 65.2 Seconds (21.0-31.0)
[2018-11-23] MEDS: DONEPEZIL HCL 10 MG TAB PO SCH (08:14)
[2018-11-23] MEDS: AMLODIPINE BESYLATE 5 MG TAB PO SCH (08:14)
[2018-11-23] MEDS: AMIODARONE 200 MG TAB PO SCH (08:14)
[2018-11-23] MEDS: METOPROLOL SUCC 25MG EXT REL TAB PO SCH (08:15)
[2018-11-23] MEDS: levETIRAcetam 500 MG TAB PO SCH ×2 (08:15→19:58)
[2018-11-23] MEDS: MEMANTINE HCL 10 MG TAB PO SCH ×2 (08:15→19:58)
[2018-11-23] MEDS: FINASTERIDE 5 MG TAB PO SCH (08:15)
[2018-11-23] MEDS: ASPIRIN 81 MG ECTAB PO SCH (08:15)
[2018-11-23] MEDS: HEPARIN STANDARD DEXTROSE 25,000 UNITS/500 ML IV SCH (11:55)
--- NOTE | 2018-11-23 16:38 | Hospitalist Progress Note ---
Date of Service November 23, 2018 Assessment & Plan (1) Deep venous thrombosis of left upper extremity: Sent to the ED by his cardiology for evaluation of left arm swelling and venous duplex that demonstrated extensive DVT Possible related to Pacemaker Onn IV heparin drip bridging with coumadin Hypercoagulable panel pending Discussion with family about Wafarin and the NOAC agents Major side effect discussed with patient such as bleeding Will need to monitor pt closely while on anticoagulant due to fall risk from seizure and syncopal episode Cardiology on board Case discussed with cardiology recommended to continue heparin drip bridging with Coumadin Will need to be on anticoagulant for 3 to 6 months if hypercoagulable work up negative INR goal between 2 to 3 Vascular consult cancelled (no indication for IVC filter placement) INR 1.2 today Monitor PT/INR (2) Elevated troponin: (3) CAD (coronary artery disease): Mostly demand ischemia Initial troponin 0.329; Troponin trending down to 0.22 EKG showed no ischemic changes Denies any chest pain Continue aspirin and beta-david ECHO showed no wall motion abnormality with EF 60-65 % Stable (4) S/P placement of cardiac pacemaker: (5) Symptomatic sinus bradycardia: Initial EKG demonstrated paced rhythm with long AV interval; there was concern for possible pacer malfunction and interrogation was performed that demonstrated normal function Cardio on board Stable (6) Non-sustained ventricular tachycardia: Continue amiodarone (7) Hypertension: continue amlodipine and metoprolol Stable (8) CKD (chronic kidney disease), stage III: Baseline creat runs in the mid ones Creatinine 1.1 Continue monitor BMP Avoid nephrotoxic agents (9) Seizure disorder: Continue Keppra Seizure precaution (10) DVT prophylaxis: On IV heparin/Coumadin INR 1.2 today CODE STATUS FULL CODE Disposition Will discharge once INR therapeutic Subjective Pt was seen and examined Lying in bed with no distress Pt said that he feels fine Denies any chest pain, palpitation and SOB Physical Exam Vital Signs (Past 24 Hours): Last Vital Signs Temp 36.6 C 11/23/18 15:13 Pulse 78 11/23/18 16:00 Resp 17 11/23/18 15:13 BP 127/66 11/23/18 15:13 Pulse Ox 92 11/23/18 15:13 Physical Exam: General- No acute distress Head- atraumatic Eyes- PERRL, EOMI, ENT- oropharynx clear Neck- supple, no JVD Lungs- clear to auscultation Heart- regular rhythm; no murmur Abdomen- normal bowel sounds, soft, nontender Extremities- no calf tenderness Neuro- alert, oriented x 3; PERRL, EOMI; no facial palsy; no dysarthria Skin- warm & dry
[2018-11-23] MEDS: WARFARIN SOD 7.5 MG TAB PO SCH (16:59)
[2018-11-24] MEDS: LEVOTHYROXINE SODIUM 88 MCG TABLET PO SCH (05:39)
[2018-11-24 07:06] LABS: INR 1.3 (0.9-1.1); Prothrombin Time 13.4 Seconds (9.0-12.0)
[2018-11-24] MEDS: levETIRAcetam 500 MG TAB PO SCH ×2 (07:45→20:00)
[2018-11-24] MEDS: MEMANTINE HCL 10 MG TAB PO SCH ×2 (07:45→20:00)
[2018-11-24] MEDS: METOPROLOL SUCC 25MG EXT REL TAB PO SCH (07:45)
[2018-11-24] MEDS: AMLODIPINE BESYLATE 5 MG TAB PO SCH (07:45)
[2018-11-24] MEDS: AMIODARONE 200 MG TAB PO SCH (07:46)
[2018-11-24] MEDS: FINASTERIDE 5 MG TAB PO SCH (07:46)
[2018-11-24] MEDS: ASPIRIN 81 MG ECTAB PO SCH (07:46)
[2018-11-24] MEDS: DONEPEZIL HCL 10 MG TAB PO SCH (07:47)
[2018-11-24 08:13] LABS: Partial Thromboplastin Ratio 2.5
[2018-11-24 08:21] LABS: Partial Thromboplastin Time 68.3 Seconds (21.0-31.0)
[2018-11-24] MEDS: HEPARIN STANDARD DEXTROSE 25,000 UNITS/500 ML IV SCH (11:57)
[2018-11-24 16:02] LABS: Partial Thromboplastin Time 54.1 Seconds (21.0-31.0)
[2018-11-24] MEDS: WARFARIN SOD 7.5 MG TAB PO SCH (16:37)
--- NOTE | 2018-11-24 16:40 | Hospitalist Progress Note ---
Date of Service November 24, 2018 Assessment & Plan (1) Deep venous thrombosis of left upper extremity: Sent to the ED by his cardiology for evaluation of left arm swelling and venous duplex that demonstrated extensive DVT Possible related to Pacemaker Onn IV heparin drip bridging with coumadin Hypercoagulable panel pending Discussion with family about Wafarin and the NOAC agents Major side effect discussed with patient such as bleeding Will need to monitor pt closely while on anticoagulant due to fall risk from seizure and syncopal episode Cardiology on board Case discussed with cardiology recommended to continue heparin drip bridging with Coumadin Will need to be on anticoagulant for 3 to 6 months if hypercoagulable work up negative INR goal between 2 to 3 Vascular consult cancelled (no indication for IVC filter placement) Continue coumadin 7.5 mg INR 1.3 today Monitor PT/INR (2) Elevated troponin: (3) CAD (coronary artery disease): Mostly demand ischemia Initial troponin 0.329; Troponin trending down to 0.22 EKG showed no ischemic changes Denies any chest pain Continue aspirin and beta-david ECHO showed no wall motion abnormality with EF 60-65 % Stable (4) S/P placement of cardiac pacemaker: (5) Symptomatic sinus bradycardia: Initial EKG demonstrated paced rhythm with long AV interval; there was concern for possible pacer malfunction and interrogation was performed that de monstrated normal function Cardio on board Stable (6) Non-sustained ventricular tachycardia: Continue amiodarone Stable (7) Hypertension: continue amlodipine and metoprolol Stable (8) CKD (chronic kidney disease), stage III: Baseline creat runs in the mid ones Creatinine 1.1 Continue monitor BMP Avoid nephrotoxic agents (9) Seizure disorder: Continue Keppra Seizure precaution (10) DVT prophylaxis: On IV heparin/Coumadin INR 1.3 today CODE STATUS FULL CODE Disposition Will discharge once INR therapeutic Subjective Pt was seen and examined Lying in bed with no distress Pt said that he feels fine Denies any chest pain, palpitation, dizziness and SOB Physical Exam Vital Signs (Past 24 Hours): Last Vital Signs Temp 36.8 C 11/24/18 15:27 Pulse 68 11/24/18 16:02 Resp 18 11/24/18 15:27 BP 110/67 11/24/18 15:27 Pulse Ox 92 11/24/18 15:27 Physical Exam: General- No acute distress Head- atraumatic Eyes- PERRL, EOMI, ENT- oropharynx clear Neck- supple, no JVD Lungs- clear to auscultation Heart- regular rhythm; no murmur Abdomen- normal bowel sounds, soft, nontender Extremities- no calf tenderness Neuro- alert, oriented x 3; PERRL, EOMI; no facial palsy; no dysarthria Skin- warm & dry
[2018-11-25] MEDS: LEVOTHYROXINE SODIUM 88 MCG TABLET PO SCH (05:43)
[2018-11-25 07:52] LABS: INR 1.8 (0.9-1.1); Partial Thromboplastin Ratio 2.3; Prothrombin Time 17.3 Seconds (9.0-12.0)
[2018-11-25 07:58] LABS: Partial Thromboplastin Time 61.1 Seconds (21.0-31.0)
[2018-11-25] MEDS: AMIODARONE 200 MG TAB PO SCH (08:58)
[2018-11-25] MEDS: MEMANTINE HCL 10 MG TAB PO SCH ×2 (08:58→20:24)
[2018-11-25] MEDS: AMLODIPINE BESYLATE 5 MG TAB PO SCH (08:58)
[2018-11-25] MEDS: FINASTERIDE 5 MG TAB PO SCH (08:59)
[2018-11-25] MEDS: METOPROLOL SUCC 25MG EXT REL TAB PO SCH (08:59)
[2018-11-25] MEDS: DONEPEZIL HCL 10 MG TAB PO SCH (08:59)
[2018-11-25] MEDS: ASPIRIN 81 MG ECTAB PO SCH (08:59)
[2018-11-25] MEDS: levETIRAcetam 500 MG TAB PO SCH ×2 (09:00→20:24)
--- NOTE | 2018-11-25 11:38 | Hospitalist Progress Note ---
Date of Service November 25, 2018 Assessment & Plan (1) Deep venous thrombosis of left upper extremity: Sent to the ED by his cardiology for evaluation of left arm swelling and venous duplex that demonstrated extensive DVT Possible related to Pacemaker Onn IV heparin drip bridging with coumadin Hypercoagulable panel pending Discussion with family about Wafarin and the NOAC agents Major side effect discussed with patient such as bleeding Will need to monitor pt closely while on anticoagulant due to fall risk from seizure and syncopal episode Cardiology on board Case discussed with cardiology recommended to continue heparin drip bridging with Coumadin Will need to be on anticoagulant for 3 to 6 months if hypercoagulable work up negative INR goal between 2 to 3 Vascular consult cancelled (no indication for IVC filter placement) Will consider to dischage on coumadin 5mg once INR therapeutic INR 1.8 today Monitor PT/INR (2) Elevated troponin: (3) CAD (coronary artery disease): Mostly demand ischemia Initial troponin 0.329; Troponin trending down to 0.22 EKG showed no ischemic changes Denies any chest pain Continue aspirin and beta-david ECHO showed no wall motion abnormality with EF 60-65 % Stable (4) S/P placement of cardiac pacemaker: (5) Symptomatic sinus bradycardia: Initial EKG demonstrated paced rhythm with long AV interval; there was concern for possible pacer malfunction and interrogation was performed that demonstrated normal function Cardio on board Stable (6) Non-sustained ventricular tachycardia: Continue amiodarone Stable (7) Hypertension: continue amlodipine and metoprolol Stable (8) CKD (chronic kidney disease), stage III: Baseline creat runs in the mid ones Creatinine 1.1 Continue monitor BMP Avoid nephrotoxic agents (9) Seizure disorder: Continue Keppra Seizure precaution (10) DVT prophylaxis: On IV heparin/Coumadin INR 1.8 today CODE STATUS FULL CODE Disposition Will discharge once INR therapeutic Subjective Pt was seen and examined Sitting in bed with no distress with at bedside Pt has been walking in the hallway Denies any chest pain, palpitation, dizziness and SOB Physical Exam Vital Signs (Past 24 Hours): Last Vital Signs Temp 36.4 C L 11/25/18 11:07 Pulse 76 11/25/18 11:07 Resp 19 11/25/18 11:07 BP 113/67 11/25/18 11:07 Pulse Ox 93 11/25/18 11:07 Physical Exam: General- No acute distress Head- atraumatic Eyes- PERRL, EOMI, ENT- oropharynx clear Neck- supple, no JVD Lungs- clear to auscultation Heart- regular rhythm; no murmur Abdomen- normal bowel sounds, soft, nontender Extremities- no calf tenderness Neuro- alert, oriented x 3; PERRL, EOMI; no facial palsy; no dysarthria Skin- warm & dry
[2018-11-25] MEDS: HEPARIN STANDARD DEXTROSE 25,000 UNITS/500 ML IV SCH (15:17)
[2018-11-25] MEDS ORDERED: WARFARIN SOD 5 MG TAB PO SCH (16:00)
[2018-11-26 05:19] LABS: Anti Cardiolipin Ab IgG <14 GPL (< = 14); Anti Cardiolipin Ab IgM <12 MPL (< = 12); Anti-Thrombin III Activity 90 % activity (80-120); B2 Glycoprotein IgA <9 SAU (<=20); B2 Glycoprotein IgG <9 SGU (<=20); B2 Glycoprotein IgM <9 SMU (<=20); Lupus Anticoagulant Negative (Negative); Protein S Functional(Activity) 89 % (70-150)
[2018-11-26] MEDS: LEVOTHYROXINE SODIUM 88 MCG TABLET PO SCH (05:50)
[2018-11-26 07:05] LABS: Partial Thromboplastin Ratio 2.5; Prothrombin Time 19.3 Seconds (9.0-12.0)
[2018-11-26 07:07] LABS: Partial Thromboplastin Time 66.5 Seconds (21.0-31.0)
[2018-11-26] MEDS: FINASTERIDE 5 MG TAB PO SCH (08:02)
[2018-11-26] MEDS: levETIRAcetam 500 MG TAB PO SCH (08:02)
[2018-11-26] MEDS: AMLODIPINE BESYLATE 5 MG TAB PO SCH (08:02)
[2018-11-26] MEDS: DONEPEZIL HCL 10 MG TAB PO SCH (08:02)
[2018-11-26] MEDS: MEMANTINE HCL 10 MG TAB PO SCH (08:02)
[2018-11-26] MEDS: ASPIRIN 81 MG ECTAB PO SCH (08:02)
[2018-11-26] MEDS: AMIODARONE 200 MG TAB PO SCH (08:02)
[2018-11-26] MEDS: METOPROLOL SUCC 25MG EXT REL TAB PO SCH (08:02)
--- NOTE | 2018-11-26 09:17 | Hospitalist Progress Note ---
Date of Service November 26, 2018 Assessment & Plan (1) Deep venous thrombosis of left upper extremity: Sent to the ED by his cardiology for evaluation of left arm swelling and venous duplex that demonstrated extensive DVT Possible related to Pacemaker Onn IV heparin drip bridging with coumadin Hypercoagulable panel pending Discussion with family about Wafarin and the NOAC agents Major side effect discussed with patient such as bleeding Will need to monitor pt closely while on anticoagulant due to fall risk from seizure and syncopal episode Cardiology on board Case discussed with cardiology recommended to continue heparin drip bridging with Coumadin Will need to be on anticoagulant for 3 to 6 months if hypercoagulable work up negative INR goal between 2 to 3 Vascular consult cancelled (no indication for IVC filter placement) Will discharge on coumadin 5mg daily INR 2.0 today Monitor PT/INR (2) Elevated troponin: (3) CAD (coronary artery disease): Mostly demand ischemia Initial troponin 0.329; Troponin trending down to 0.22 EKG showed no ischemic changes Denies any chest pain Continue aspirin and beta-david ECHO showed no wall motion abnormality with EF 60-65 % Stable (4) S/P placement of cardiac pacemaker: (5) Symptomatic sinus bradycardia: Initial EKG demonstrated paced rhythm with long AV interval; there was concern for possible pacer malfunction and interrogation was performed that demonstrated normal function Cardio on board Stable (6) Non-sustained ventricular tachycardia: Continue amiodarone Stable (7) Hypertension: continue amlodipine and metoprolol Stable (8) CKD (chronic kidney disease), stage III: Baseline creat runs in the mid ones Creatinine 1.1 Continue monitor BMP Avoid nephrotoxic agents (9) Seizure disorder: Continue Keppra Seizure precaution (10) DVT prophylaxis: On IV heparin/Coumadin INR 2.0 today CODE STATUS FULL CODE Disposition Discharge home today Follow up with Dr. Mullins on 12/02 @ 11AM Follow up with the coumadin clinic Fall precaution Subjective Pt was seen and examined Lying in bed with no distress Pt said that he feels fine Walk in the hallway yesterday with no distress no abnormal bleeding noted Denies any chest pain, palpitation, dizziness and SOB Physical Exam Vital Signs (Past 24 Hours): Last Vital Signs Temp 36.7 C 11/26/18 07:12 Pulse 67 11/26/18 07:12 Resp 19 11/26/18 07:12 BP 144/80 H 11/26/18 07:12 Pulse Ox 96 11/26/18 07:12 Physical Exam: General- No acute distress Head- atraumatic Eyes- PERRL, EOMI, ENT- oropharynx clear Neck- supple, no JVD Lungs- clear to auscultation Heart- regular rhythm; no murmur Abdomen- normal bowel sounds, soft, nontender Extremities- no calf tenderness Neuro- alert, oriented x 3; PERRL, EOMI; no facial palsy; no dysarthria Skin- warm & dry
[2018-11-26 11:43] VITALS: BP 133/79; TEMP 97.5; O2SAT 94
[2018-11-26 13:00] VITALS: PULSE 63
[2018-11-26] MEDS: HEPARIN STANDARD DEXTROSE 25,000 UNITS/500 ML IV SCH (13:15)
--- NOTE | 2018-11-27 08:16 | Discharge Summary ---
Date of Service December 05, 2018 Admission HPI Per Admitting Provider 83-year-old male who was sent to the ED by outpatient cardiology provider for evaluation of left arm swelling and outpatient venous duplex that demonstrated extensive DVT in the left arm. Patient developed left shoulder and left-sided neck pain 5 days ago with subsequent left arm swelling that has been progressively getting worse. Patient's contacted his outpatient cardiology provider who ordered a venous duplex of the left upper extremity that demonstrated no flow in the left internal jugular vein, left subclavian vein, and left axillary vein. Patient denies chest pain and shortness of breath. A couple of months ago, he was having issues with near syncopal events however that has improved once medication adjustments were made. Patient denies any near syncopal events for the past 1 month. No dizziness or diaphoresis. Patient denies abdominal pain, nausea, vomiting, diarrhea. No other recent illnesses, fevers, chills. He denies any urinary symptoms. In the ED, labs show a mildly elevated troponin at 0.329. EKG demonstrates a paced rhythm with long AV interval. There was initial concern for possible pacer malfunction however interrogation was performed that demonstrated normal function. Hypercoagulable panel was obtained and patient was started on IV heparin. Discharge Data Consultations 11/20/18 15:51 ED Decision to Admit Stat 11/20/18 19:32 Consult Cardiology Routine Consult Case Management - Discharge Planning Routine
--- NOTE | 2018-12-05 08:53 | Discharge Summary ---
Date of Service November 26, 2018 Admission HPI Per Admitting Provider 83-year-old male who was sent to the ED by outpatient cardiology provider for evaluation of left arm swelling and outpatient venous duplex that demonstrated extensive DVT in the left arm. Patient developed left shoulder and left-sided neck pain 5 days ago with subsequent left arm swelling that has been progressively getting worse. Patient's contacted his outpatient cardiology provider who ordered a venous duplex of the left upper extremity that demonstrated no flow in the left internal jugular vein, left subclavian vein, and left axillary vein. Patient denies chest pain and shortness of breath. A couple of months ago, he was having issues with near syncopal events however that has improved once medication adjustments were made. Patient denies any near syncopal events for the past 1 month. No dizziness or diaphoresis. Patient denies abdominal pain, nausea, vomiting, diarrhea. No other recent illnesses, fevers, chills. He denies any urinary symptoms. In the ED, labs show a mildly elevated troponin at 0.329. EKG demonstrates a paced rhythm with long AV interval. There was initial concern for possible pacer malfunction however interrogation was performed that demonstrated normal function. Hypercoagulable panel was obtained and patient was started on IV heparin. Admission Exam Per Admitting Provider Constitutional: WD/WN, vitals as above Eyes: PERRL, conjunctivae normal, anicteric sclerae ENMT: external ear and nose normal, oropharynx normal Respiratory: normal respiratory effort, lungs clear to auscultation Cardiovascular: Rate/Rhythm: regular rate and regular rhythm Vessels: normal peripheral pulses Extremities: no edema (BLE) Gastrointestinal normal bowel sounds, soft, nontender, no hepatosplenomegaly Musculoskeletal: no cyanosis or clubbing, extremities motor strength 5/5 Extremities: + upper extremity abnormal to inspection (+3 edema left upper extremity with mild erythema, CSM checks intact) Left Skin: no rashes, warm and dry Neurologic: PERRL, EOMI, accommodation nl, no face palsy, no dysarthria Psychiatric: A+Ox3, euthymic affect Principal Diagnosis Deep venous thrombosis of left upper extremity Discharge Exam General- No acute distress Head- atraumatic Eyes- PERRL, EOMI, ENT- oropharynx clear Neck- supple, no JVD Lungs- clear to auscultation Heart- regular rhythm; no murmur Abdomen- normal bowel sounds, soft, nontender Extremities- no calf tenderness Neuro- alert, oriented x 3; PERRL, EOMI; no facial palsy; no dysarthria Skin- warm & dry Discharge Data Allergies Allergy/AdvReac Type Severity Reaction Status Date / Time Iodinated Contrast- Oral and Allergy Unknown ` Verified 11/20/18 15:19 IV Dye Consultations 11/20/18 15:51 ED Decision to Admit Stat 11/20/18 19:32 Consult Cardiology Routine Consult Case Management - Discharge Planning Routine Ordered Studies XR chest 1V portable CLINICAL HISTORY: arm pain, elevated trop COMPARISON STUDY: 06/27/2017 FINDINGS: The heart is mildly enlarged. There is left subclavian dual-chamber central venous pacemaker. There is no failure. There is no focal pulmonary consolidation. There are no pleural effusions.[ IMPRESSION: No active disease in the chest. Electronically signed by: Luigi Leal M.D. 11/20/2018 3:34 PM Dictated: 11/20/18 1534 Transcribed: 11/20/18 1534 Hospital Course (1) Deep venous thrombosis of left upper extremity: Sent to the ED by his cardiology for evaluation of left arm swelling and venous duplex that demonstrated extensive DVT Possible related to Pacemaker Onn IV heparin drip bridging with coumadin Hypercoagulable panel pending Discussion with family about Wafarin and the NOAC agents Major side effect discussed with patient such as bleeding Will need to monitor pt closely while on anticoagulant due to fall risk from seizure and syncopal episode Cardiology on board Case discussed with cardiology recommended to continue heparin drip bridging with Coumadin Will need to be on anticoagulant for 3 to 6 months if hypercoagulable work up negative INR goal between 2 to 3 Vascular consult cancelled (no indication for IVC filter placement) Will discharge on coumadin 5mg daily INR 2.0 today Monitor PT/INR (2) Elevated troponin: (3) CAD (coronary artery disease): Mostly demand ischemia Initial troponin 0.329; Troponin trending down to 0.22 EKG showed no ischemic changes Denies any chest pain Continue aspirin and beta-david ECHO showed no wall motion abnormality with EF 60-65 % Stable (4) S/P placement of cardiac pacemaker: (5) Symptomatic sinus bradycardia: Initial EKG demonstrated paced rhythm with long AV interval; there was concern for possible pacer malfunction and interrogation was performed that demonstrated normal function Cardio on board Stable (6) Non-sustained ventricular tachycardia: Continue amiodarone Stable (7) Hypertension: continue amlodipine and metoprolol Stable (8) CKD (chronic kidney disease), stage III: Baseline creat runs in the mid ones Creatinine 1.1 Continue monitor BMP Avoid nephrotoxic agents (9) Seizure disorder: Continue Keppra Seizure precaution (10) DVT prophylaxis: On IV heparin/Coumadin INR 2.0 today CODE STATUS FULL CODE Disposition Discharge home today Follow up with Dr. Mullins on 12/02 @ 11AM Follow up with the coumadin clinic Fall precaution Total Time Total Time Spent Total Time Spent (In Minutes): 35 minutes Total Time Includes: Examination of the Patient, Discharge Planning, Medication Reconciliation, Communication With Other Providers and Other Discharge Plan Discharge Items Patient Disposition: Home - Self-Care Reason For Visit: LUE DVT Discharge Diagnosis: Deep venous thrombosis of left upper extremity Discharge Goals: Decrease discomfort, Improve disease control, Improve function and Increase independence Activity: Resume your previous activity Activity Comment: As tolerated Non-emergency contact: Primary Care Provider Call non-emergency contact if: you have any medication questions Follow-up/Referrals: Jordana Hopkins [Primary Care Provider] - Diet: Heart Healthy Addtl Provider Instructions: Follow up with your primary care provider Dr. Mullins on 12/02 @ 11AM Follow up with the coumadin clinic to monitor your INR (Coumadin clinic will call you for the appointment) Check PT/INR on (or when schedule by the coumadin clinic) Fall precaution Notify your physician for any abnormal bleeding. Medication Instructions: Coumadin Warfarin is a medicine prescribed to prevent blood clots Warfarin will thin your blood and help prevent new clots Take your medications exactly as directed Never skip a dose. Never take a double dose. If you miss a dose, take it as soon as you remember It is important for your doctor to monitor your prothrombin time (PT). This is a lab test Keep your appointment for lab tests Risk of Adverse Drug Reactions and Interactions: Warfarin increases your risk of bleeding The food you eat and other medications you take can affect how Warfarin works in your body Ask your doctor about daily aspirin therapy It is very important to talk with your doctor about all of the other medicines, antibiotics, vitamins or herbal products that you are taking All of your medication must be approved by your doctor, including new medicines, as well as medicines you have taken before you started taking Warfarin Avoid NSAIDs (Motrin, Aleve, Naproxen, Ibuprofen, Advil, Meloxicam,..) due to risks of bleeding Diet: In order for Warfarin to work properly, it is important to keep your intake of Vitamin K as consistent as possible You should avoid any sudden change in Vitamin K intake Report any significant changes in your diet or weight to your doctor Call your Primary Care doctor if you experience any of the following: Swelling or Pain in your leg Sudden, continuous pain deep in a muscle Pain that worsens when you are active or when you stand still for a long time Chest Pain Sudden Shortness of Breath Rapid or pounding heart beat Fainting Dizziness Cough with blood or bloody sputum Sweating more than normal Bruises Heavy or uncontrolled bleeding Blood in your urine, stool or vomit Black or tarry stools Caring for Your Self at Home: Avoid sitting, standing or lying down for long periods without moving your legs and feet When traveling by car, stop to get out and move around at least once every 3 hours On long airplane, train or bus rides, get up and move around when possible If you can't get up, wiggle your toes and tighten your calves to keep your blood moving Follow Up: It is important for you to keep your follow up appointments with your medical provider. Prescriptions: New warfarin [Coumadin] 5 mg Tablet 5 mg PO DAILY@1600 30 Days Qty: 30 RF: 0 Continued amiodarone [Pacerone] 200 mg tablet 200 mg PO DAILY RF: 0 donepezil [Aricept] 10 mg tablet 10 mg PO DAILY RF: 0 amlodipine [Norvasc] 5 mg tablet 5 mg PO DAILY RF: 0 levothyroxine 88 mcg tablet 88 mcg PO DAILY RF: 0 nitroglycerin [Nitrostat] 0.4 mg Tablet, Sublingual 0.4 mg Sublingual UD PRN (Reason: Chest Pain) RF: 0 metoprolol succinate [Toprol XL] 25 mg tablet extended release 24 hr 50 mg PO DAILY RF: 0 finasteride [Proscar] 5 mg tablet 5 mg PO DAILY RF: 0 memantine [Namenda] 10 mg tablet 10 mg PO BID RF: 0 levetiracetam [Keppra XR] 500 mg tablet extended release 24 hr 500 mg PO HS RF: 0 levetiracetam [Keppra XR] 750 mg tablet extended release 24 hr 1,500 mg PO HS RF: 0 aspirin [Aspir-Low] 81 mg Tablet,Delayed Release (Dr/Ec) 81 mg PO DAILY RF: 0 Stand-Alone Forms: [facility]charge Orders: Discharge Order (Routine); Ordered 11/26/18 Ordered By: Veena Hawkins Admission Data Admit Date/Time: 11/20/18 16:34 Attending Provider: Veena Hawkins Admit Provider: Michael Fischer Primary Care Provider: Jordana Hopkins. Other Providers: Carlos Mills Service: Telemetry Other Interventions: Discharge Summary Assessment (RN) Last Done: 11/26/18 12:59 DC Date/Time DO NOT enter until pt leaves facility: 11/26/18 13:17
== END 2018-11-26 13:17 | disposition home or self-care (01) | DRG 300 ==
LOC: ED 13:13 → 2S 16:34

== ENCOUNTER 2023-09-23 15:14 | Inpatient (IN) ==
--- OUTSIDE RECORDS SUMMARY | 2023-09-23 15:20 | External Medical Summary | Summary of Care ---
Author Name Unknown Organization [facility] Address [address] [place] [address] Phone [phone] Care Team Providers Care Flexographic Press Set Up Operator Name Role Phone Jordana Hopkins DO Primary Care Provider Encounter Details Date Type Department Care Team (Late st Contact Info) Description 09/14/2023 Result Scan Unspecified Department Barrington Coelho MD [address] [place] [address] <No scans attached> Allergies Active Allergy Reactions Criticality Noted Date Comments Iodinated Contrast Media 12/15/2010 documented as of this encounter (statuses as of 09/14/2023) Medications Medication Sig Dispensed Refills Start Date End Date Status ASPIRIN EC LOW STRENGTH TBEC 81 MG OR take one tablet daily 34 11 01/06/2003 Active Cholecalciferol (VITAMIN D) 1000 UNIT Capsule 0 Active nitroglycerin (NITROSTAT) 0.4 MG SUBLIndications:Spec ial screening for malignant neoplasms, colon Place 1 Tab under the tongue every 5 minutes as needed for Pain, Chest. Every 5 minutes x 3 for chest pain. 10 Tab 5 02/11/2018 Active Amiodarone HCl 200 MG Oral Tablet (Cordarone)Indicatio ns:Nonsustained ventricular tachycardia (HCC) TAKE 1/2 TABLET BY MOUTH EVERY MORNING 45 Tablet 3 11/17/2022 Active Metoprolol Succinate ER 100 MG Oral Tablet Extended Release 24 Hour (toPROL XL)Indications:HTN, goal below 140/90,Nonsustained ventricular tachycardia (HCC) TAKE 1 TABLET BY MOUTH EVERY DAY 90 Tablet 3 11/23/2022 Active Finasteride 5 MG Oral Tablet (Proscar)Indications :BPH with obstruction/lower urinary tract symptoms Take 1 Tablet by mouth in the morning. 90 Tablet 3 12/20/2022 Active Donepezil HCl 10 MG Oral Tablet (Aricept)Indications :Memory loss TAKE 1 TABLET BY MOUTH EVERY DAY WITH LARGEST MEAL OF THE DAY. 90 Tablet 1 04/23/2023 Active levETIRAcetam ER 750 MG Oral Tablet Extended Release 24 Hour (Keppra XR) TAKE 2 TABLETS BY MOUTH AT BEDTIME 180 Tablet 1 05/17/2023 Active levETIRAcetam ER 500 MG Oral Tablet Extended Release 24 Hour (Keppra XR) TAKE 1 TABLET BY MOUTH AT BEDTIME ALONG WITH 750MG TABLETS 90 Tablet 1 06/12/2023 Active Memantine HCl 10 MG Oral Tablet (Namenda) TAKE 1 TABLET BY MOUTH TWO TIMES DAILY WITH MORNING AND EVENING MEALS 180 Tablet 1 08/10/2023 Active Warfarin Sodium 5 MG Oral Tablet (Coumadin)Indication s:History of DVT (deep vein thrombosis) Take 0.5 to 1 tab by mouth once daily as directed by Coumadin Clinic. 90 Tablet 3 08/22/2023 Active Levothyroxine Sodium 88 MCG Oral Tablet (Levoxyl)Indications :Hypothyroidism, unspecified type TAKE 1 TABLET BY MOUTH ONCE DAILY IN THE MORNING (AT LEAST 30 MINUTES PRIOR TO BREAKFAST OR OTHER MEDICATIONS) 90 Tablet 3 08/22/2023 Active Omeprazole 20 MG Oral Capsule Delayed Release (PriLOSEC)Indication s:Dysphagia, unspecified type Take 1 Capsule by mouth in the morning. 1 hour before the first meal of the day. 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, psychotic disturbance, mood disturbance, or anxiety 01/08/2023 Hypothyroidism 05/23/2021 Chronic kidney disease, stage 3a 02/01/2021 Overview: Per CKD protocol Hypertensive kidney disease with stage 3a chronic kidney disease 08/02/2020 Overview: Per CKD protocol History of DVT (deep vein thrombosis) 10/15/2019 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 HTN, GOAL BELOW 140/90 08/11/2009 Overview: Modified per HTN protocol #16. Actinic keratosis 05/07/2002 CHR ISCHEMIC HRT DIS NOS 01/03/2000 Overview: Angioplasty in 1999 Other seborrheic keratosis 04/12/1999 Elevated prostate specific antigen (PSA) 992 SENSORNEUR HEAR LOSS NOS - right documented as of this encounter (statuses as of 09/14/2023) Resolved Problems Problem Noted Date Diagnosed Date Resolved Date Acute deep vein thrombosis ( DVT) of left upper extremity 11/28/2018 07/26/2019 Near syncope 09/23/2018 06/27/2019 Overview: ACUTE Bradycardia 09/07/2015 03/19/2018 Hypertensive kidney disease with chronic kidney disease stage III 07/05/2015 08/05/2020 Overview: Per CKD protocol #1 ADVANCE DIRECTIVE INFORMATION 02/10/2010 01/15/2017 Overview: Yes, Copy scanned at patient level in the electronic medical record.(Go to Action, Patient File to view) Patient aware they must notify their healthcare provider of changes. Special screening for malign ant neoplasms, colon 03/13/2006 07/17/2017 Overview: Colonoscopy in 2004 ABN FIND-STOOL CONTENTS - po sitive hemacults x 3 09/11/1999 12/02/2018 Mixed dyslipidemia 01/14/1992 9 Overview: Per Lipid Taxonomy. HYPERTENSION NOS 08/12/2009 Overview: Modified per HTN protocol #16. Reflux esophagitis 7 documented as of this encounter (statuses as of 09/14/2023) Immunizations Name Administration Dates Next Due COVID-19 mRNA, LNP-s, No Pre serve, 2-Dose Series (Moderna) 05/11/2022,07/29/2021,11/23/2020,10/20 H1N1 2009 Influenza, IM 02/03/2010 Pneumococcal Conjugate Vacc, 13 Valent (Prevnar) 02/05/2015 Pneumococcal Polysaccharide PPV23 (Pneumovax) 01/10/2013 Season Influenza, Quad, PF, Adjuvanted, 65+ Yrs, IM (FLUAD) 07/13/2020 Seasonal Influenza Virus Vac cine, Unspecified Formulation 07/13/2020,06/23/2019,08/09/2011,08/13,07/31/2005,08/16/2004,07/17/2003 ,07/25/2000 Seasonal Influenza, PF, 6 M & above, IM , (FluLaval or Fluzone) 08/06/2018,06/20/2017 Seasonal Influenza, Quadriva lent Hd (Fluzone Hd) 07/02/2023,07/07/2022,06/15/2021 Seasonal Influenza, Quadriva lent, No Preserve, IM 06/26/2016,06/28/2015 Seasonal Influenza, Split, I IV3, With Preserve, Inj 09/18/2014,07/17/2013,06/28/2012,07/14,07/14/2009,07/08/2007,09/10/2006 Seasonal Influenza, Trivalen t, Adjuvanted, 65+ yrs 06/23/2019 TDAP (age 11 and older)(Adacel) 09/29/2011 Varicella Zoster Vaccine (Adult) 01/30/2018,11/22 Zoster Vaccine Recombinant (Shingrix) 07/08/2018 ,02/06/2018 documented as of this encounter Social History Tobacco Use Types Packs/Day Years Used Date Smoking Tobacco: Never Passive Smoke Exposure: Never Smokeless Tobacco: Never Alcohol Use Standard Drinks/Week Comments Yes 0 (1 standard drink = 0.6 oz pur e alcohol) Rare PHQ-2 Answer Date Recorded PHQ Adult Total Score 8 01/23/2022 Sex and Gender Information Value Date Recorded Sex Assigned at Not on file Gender Identity Not on file Sexual Orientation Not on file Job Start Date Occupation Industry Not on file Not on file Not on file documented as of this encounter Plan of Treatment Upcoming Encounters Date Type Department Care Team (Late st Contact Info) Description 10/08/2023 1:00 PM EST Anticoagulation Pharmacy, [facility] [address] [facility] [place] [address] Pharmacist1, [facility] [address] [facility] COUNT INCLUDES THE [facility] [address] [id number] 11/07/2023 8:00 AM EST Office Visit Otolaryngology [facility] [address] [place] [address] Anand Brewster DO [address] [place] [address] 03/13/2024 2:00 PM EDT Office Visit Cardiology, [facility] [address] [place] [address] Tristen Otto PA-C [address] [facility] [place] [address] 07/22/2024 1:45 PM EDT Office Visit Urology, [facility] [address] [place] [address] Wili Mckeon MD [address] [facility] [address] [place] [address] Health Maintenance Due Date Last Done Comments Albumin/Creatinine Ratio 12/03/2019 019, 03/14/2016, 08/09/2011, Additional history exists CKD PHOS USE SMARTSET 67862 12/03/201911/22, 03/14/2016, 08/29/2012 DTaP,Tdap,and Td Vaccines (2 - Td or Tdap) 09/29/2021 09/29/2011, 09/05/1999 Depression Screening 01/23/2023 01/23/2022 CKD HGB USE SMARTSET 39796 05/23/202405/23, 05/10/2022, 11/09/2021, Additional history exists TSH 05/23/2024 05/23/2023, 04/24, 11/09/2021, Additional history exists Pneumococcal Vaccine: 65+ Years Completed 02/05/2015, 01/10/2013, 09/09/2001 Zoster Vaccines Completed 07/08/2018, 01/22, 01/30/2018, Additional history exists Influenza Vaccine (FLU shot) Completed 05/2023, 07/07/2022, 06/15/2021, Additional history exists COVID-19 Vaccine Completed 08/06/2023, , 07/29/2021, Additional history exists GARDASIL-HPV IMMUNIZATION SERIES Aged Out No longer eligible based on patient's age to complete this topic Hepatitis B Aged Out No longer eligi ble based on patient's age to complete this topic MENINGOCOCCAL (MENACTRA/MENVEO) Aged Out No longer eligible based on patient's age to complete this topic documented as of this encounter Medical Devices Not on filedocumented as of this encounter Procedures Procedure Name Priority Date/Time Associated Diagnosis Comments CARDIOLOGY SCANNED RESULT 09/14/2023 documented in this encounter Results * CARDIOLOGY SCANNED RESULT (09/14/2023) 09/14/2023 Barrington Coelho MD OTHER documented in this encounter Advance Directives Documents on File Type Date Recorded Patient Front Office Clerk Expl anation Advance Directives and Living Will 07/16/2017 LIVING WILL Power of Power [employer] 07/16/2017 POWER OF A [facility] CARE A Care Teams Flexographic Press Set Up Operator Relationship Specialty Start Date End Date Jordana Hopkins DO [address] [place] [address] PCP - General Family Medicine 03/05/17 documented as of this encounter
--- OUTSIDE RECORDS SUMMARY | 2023-09-23 15:20 | External Medical Summary | Summary of Care ---
Author Name Unknown Organization [facility] Address [address] [place] [address] Phone [phone] Care Team Providers Care Rear Admiral Name Role Phone Jordana Hopkins DO Primary Care Provider Reason for Visit * Reason Comments Pacemaker Clinic Encounter Details Date Type Department Care Team (Latest Contact Info) Description 09/06/2023 2:00 PM EST Cardiac Studies Cardiology, [facility] [address] [place] [address] [place], [facility] [address] [place] [address] Cardiac pacemaker in situ*; Sinus node dysfunction (HCC) Allergies Active Allergy Reactions Criticality Noted Date Comments Iodinated Contrast Media 12/15/2010 documented as of this encounter (statuses as of 09/13/2023) Medications Medication Sig Dispensed Refills Start Date End Date Status ASPIRIN EC LOW STRENGTH TBEC 81 MG OR take one tablet daily 34 11 01/06/2003 Active Cholecalciferol (VITAMIN D) 1000 UNIT Capsule 0 Active nitroglycerin (NITROSTAT) 0.4 MG SUBLIndications:S pecial screening for malignant neoplasms, colon Place 1 Tab under the tongue every 5 minutes as needed for Pain, Chest. Every 5 minutes x 3 for chest pain. 10 Tab 5 02/11/2018 Active Amiodarone HCl 200 MG Oral Tablet (Cordarone)Indica tions:Nonsustaine d ventricular tachycardia (HCC) TAKE 1/2 TABLET BY MOUTH EVERY MORNING 45 Tablet 3 11/17/2022 Active Metoprolol Succinate ER 100 MG Oral Tablet Extended Release 24 Hour (toPROL XL)Indications:HT N, goal below 140/90,Nonsustain ed ventricular tachycardia (HCC) TAKE 1 TABLET BY MOUTH EVERY DAY 90 Tablet 3 11/23/2022 Active Finasteride 5 MG Oral Tablet (Proscar)Indicati ons:BPH with obstruction/lower urinary tract symptoms Take 1 Tablet by mouth in the morning. 90 Tablet 3 12/20/2022 Active Donepezil HCl 10 MG Oral Tablet (Aricept)Indicati ons:Memory loss TAKE 1 TABLET BY MOUTH EVERY [...] Active Warfarin Sodium 5 MG Oral Tablet (Coumadin)Indicat ions:History of DVT (deep vein thrombosis) Take 0.5 to 1 tab by mouth once daily as directed by Coumadin Clinic. 90 Tablet 3 08/22/2023 Active Levothyroxine Sodium 88 MCG Oral Tablet (Levoxyl)Indicati ons:Hypothyroidis m, unspecified type TAKE 1 TABLET BY MOUTH ONCE DAILY IN THE MORNING (AT LEAST 30 MINUTES PRIOR TO BREAKFAST OR OTHER MEDICATIONS) 90 Tablet 3 08/22/2023 Active Omeprazole 20 MG Oral Capsule Delayed Release (PriLOSEC)Indicat ions:Dysphagia, unspecified type Take 1 Capsule by mouth in the morning. 1 hour before the first meal of the day. 30 Capsule 5 09/06/2023 Active Rosuvastatin Calcium 5 MG Oral Tablet (Crestor) TAKE 1 TABLET BY MOUTH EVERY DAY 90 Tablet 3 09/11/2022 3 Discontinued documented as of this encounter (statuses as of 09/13/2023) Active Problems Problem Noted Date Diagnosed Date Atherosclerotic heart diseas e of [place] coronary artery with other forms of angina [...] as of this encounter (statuses as of 09/13/2023) Resolved Problems Problem Noted Date Diagnosed Date [...] neoplasms, colon 03/13/2006 07/17/2017 Overview: Colonoscopy in 2003 ABN FIND-STOOL CONTENTS - po sitive hemacults x 3 09/11/1999 12/02/2018 Mixed dyslipidemia 01/14/1992 9 Overview: Per Lipid Taxonomy. HYPERTENSION NOS 08/12/2009 Overview: Modified per HTN protocol #16. Reflux esophagitis 7 documented as of this encounter (statuses as of 09/13/2023) Immunizations Name Administration Dates Next Due COVID-19 [...] on file documented as of this encounter Progress Notes * Anuja Chambers RN - 09/13/2023 3:30 PM EST Patient and implanted device were evaluated today in the [facility]. Providers please see scanned report in the Scans tab. Anuja Chambers RN documented in this encounter Nursing Notes * Jonna Coffman RN - 09/06/2023 1:58 PM EST Patient and implanted device were evaluated today in the [facility]. Providers please see scanned report in the Scans tab. Patient with 11 months remaining for battery. Spouse reports has been sending reports as requested,but these have no been received via [email or web address]. Ticket submitted through [employer] for [employer] to reach out to patient/spouse for troubleshooting. documented in this encounter Plan of Treatment Upcoming Encounters Date Type Department Care Team (Late st Contact Info) Description 10/08/2023 1:00 PM EST Anticoagulation Pharmacy, [facility] [address] [place] [address] Pharmacist1, [facility] [address] [place] [address] 11/07/2023 8:00 AM EST Office Visit Otolaryngology [facility] [address] [place] [address] Anand Brewster DO [address] [place] [address] 03/13/2024 2:00 PM EDT Office Visit Cardiology, [facility] [address] [place] [address] Tristen Otto PA-C [address] [place] [address] 07/22/2024 1:45 PM EDT Office Visit Urology, [facility] [address] [place] [address] Wili Mckeon MD [address] [place] [address] [place] [id number] Health Maintenance Due Date Last Done Comments Albumin/Creatinine Ratio 12/03/2019 019, 03/14/2016, 08/09/2011, Additional history exists CKD PHOS USE SMARTSET 05471 12/03/201911/22, 03/14/2016, 08/29/2012 DTaP,Tdap,and Td Vaccines (2 - Td or Tdap) 09/29/2021 09/29/2011, 09/05/1999 Depression Screening 01/23/2023 01/23/2022 CKD HGB USE SMARTSET 88295 05/23/202405/23, 05/10/2022, 11/09/2021, Additional history exists TSH [...] Procedure Name Priority Date/Time Associated Diagnosis Comments PACEMAKER WITH INTERPRETATION Routine 09/06/2023 Cardiac pacemaker in situ Sinus node dysfunction (HCC) documented in this encounter Results * PACEMAKER WITH INTERPRETATION (09/06/2023) 09/06/2023 Barrington Coelho MD MEDICINE documented in this encounter Visit Diagnoses Diagnosis Cardiac pacemaker in situ- Primary Sinus node dysfunction (HCC) Sinoatrial node dysfunction documented in this encounter Advance Directives Documents on File Type Date Recorded Patient Insurance Counsel Expl anation Advance Directives and Living Will 07/16/2017 LIVING WILL Power of Automatic Operator 07/16/2017 [facility] Care Teams Rear Admiral Relationship Specialty Start Date End Date Jordana Hopkins DO [address] [place] [address] PCP - General Family Medicine 03/05/17 documented as of this encounter
--- OUTSIDE RECORDS SUMMARY | 2023-09-23 15:20 | External Medical Summary | Summary of Care ---
Author Name Unknown Organization [facility] Address [address] [place] [address] Phone [phone] Care Team Providers Care Licensing Coordinator Name Role Phone Jordana Hopkins DO Primary Care Provider Reason for Visit * Reason Onset Date Comments Other 09/13/2023 Encounter Details Date Type Department Care Team (Late st Contact Info) Description 09/13/2023 Telephone Cardiology, [facility] [address] [place] [address] [place], Pacer Clinic [facility] [address] [place] [address] Other (/) Allergies Active Allergy Reactions Criticality Noted Date [...] on file documented as of this encounter Miscellaneous Notes * Telephone Encounter - Jonna Coffman RN - 09/13/2023 8:31 AM EST [employer] ticket submitted following device check 09/06/23 as remote transmissions have not been being received. [employer] attempted to contact patient/spouse x 3 without success. [employer] sent with contact number for patient/spouse to reach out to [employer] to attempt to resolve/troubleshoot. documented in this encounter Plan of Treatment Upcoming Encounters Date Type Department Care Team (Late st Contact Info) Description 10/08/2023 1:00 PM EST Anticoagulation Pharmacy, [facility] 200 [facility] [place] [address] Pharmacist1, [facility] [address] [facility] [place] [address] 11/07/2023 8:00 AM EST [facility] [address] [place] [address] Anand Brewster DO [address] [place] [address] 03/13/2024 2:00 PM EDT [facility] [address] [place] [address] Tristen Otto PA-C [address] [place] [address] 07/22/2024 1:45 PM EDT Office Visit Urology, [facility] [address] [place] [address] Wili Mckeon MD [address] [place] [address] [place] [address] Health Maintenance Due Date Last Done Comments Albumin/Creatinine Ratio 12/03/2019 019, 03/14/2016, 08/09/2011, Additional history exists CKD PHOS USE SMARTSET 05347 12/03/201911/22, 03/14/2016, 08/29/2012 DTaP,Tdap,and Td Vaccines (2 - Td or Tdap) 09/29/2021 09/29/2011, 09/05/1999 Depression Screening 01/23/2023 01/23/2022 CKD HGB USE SMARTSET 68802 05/23/202405/23, 05/10/2022, 11/09/2021, Additional history exists TSH [...] Not on filedocumented as of this encounter Advance Directives Documents on File Type Date Recorded Patient Protective Signal Operations Supervisor Expl anation Advance Directives and Living Will 07/16/2017 LIVING WILL Power of Animal Shelter Supervisor 07/16/2017 POWER OF A [facility]NEY [facility] Care Teams Licensing Coordinator Relationship Specialty Start Date End Date Jordana Hopkins DO [address] [place] [address] PCP - General Family Medicine 03/05/17 documented as of this encounter
--- OUTSIDE RECORDS SUMMARY | 2023-09-23 15:20 | External Medical Summary | Summary of Care ---
Author Name Unknown Organization [facility] Address [address] [place] [address] Phone [phone] Care Team Providers Care Chemical Checker Name Role Phone Jordana Hopkins DO Primary Care Provider Reason for Referral * Evaluate & Treat - Unlimited Visits (Within 30 days (routine)) - Authorized Specialty Diagnoses / Procedures Referred By Ye estrada Referred To Contact Otolaryngology Diagnoses Chronic cough Jordana Hopkins DO [address] [place] [address] Referral ID Status Reason Start Date Expiration Date Visits Requested Visits Authorized [id number] Authorized Specialty Services Required [phone] Question Answer Referral Priority Within 30 days (routine) Where should this appointment be scheduled? [facility] Reason for Referral Throat Conditions Specific Condition: Chronic cough Reason for Visit * Reason Comments Acute Constant clearing of throat and coughing up mucus. Encounter Details Date Type Department Care Team (Late st Contact Info) Description 09/06/2023 11:40 AM EST Office Visit Family Practice [facility] [address] [place] [address] Jordana Hopkins DO [address] [place] [address] Chronic cough*; Dysphagia, unspecified type Allergies Active Allergy Reactions Criticality Noted Date Comments Iodinated Contrast Media 12/15/2010 documented as of this encounter (statuses as of 09/18/2023) Medications Medication Sig Dispensed Refills Start Date End Date Status ASPIRIN EC LOW STRENGTH TBEC 81 MG OR take one tablet daily 34 11 01/06/2003 Active Cholecalciferol (VITAMIN D) 1000 UNIT Capsule 0 Active nitroglycerin (NITROSTAT) 0.4 MG SUBLIndications: Special screening for malignant neoplasms, colon Place 1 Tab under the tongue every 5 minutes as needed for Pain, Chest. Every 5 minutes x 3 for chest pain. 10 Tab 5 02/11/2018 Active Amiodarone HCl 200 MG Oral Tablet (Cordarone)Indic ations:Nonsustai zully ventricular tachycardia (HCC) TAKE 1/2 TABLET BY MOUTH EVERY MORNING 45 Tablet 3 11/17/2022 Active Metoprolol Succinate ER 100 MG Oral Tablet Extended Release 24 Hour (toPROL XL)Indications:H TN, goal below 140/90,Nonsustai zully ventricular tachycardia (HCC) TAKE 1 TABLET BY MOUTH EVERY DAY 90 Tablet 3 11/23/2022 Active Finasteride 5 MG Oral Tablet (Proscar)Indicat ions:BPH with obstruction/lowe r urinary tract symptoms Take 1 Tablet by mouth in the morning. 90 Tablet 3 12/20/2022 Active Donepezil HCl 10 MG Oral Tablet (Aricept)Indicat ions:Memory loss TAKE 1 TABLET BY MOUTH EVERY [...] Active Warfarin Sodium 5 MG Oral Tablet (Coumadin)Indica tions:History of DVT (deep vein thrombosis) Take 0.5 to 1 tab by mouth once daily as directed by Coumadin Clinic. 90 Tablet 3 08/22/2023 Active Levothyroxine Sodium 88 MCG Oral Tablet (Levoxyl)Indicat ions:Hypothyroid ism, unspecified type TAKE 1 TABLET BY MOUTH ONCE DAILY IN THE MORNING (AT LEAST 30 MINUTES PRIOR TO BREAKFAST OR OTHER MEDICATIONS) 90 Tablet 3 08/22/2023 Active Omeprazole 20 MG Oral Capsule Delayed Release (PriLOSEC)Indica tions:Dysphagia, unspecified type Take 1 Capsule by mouth in the morning. 1 hour before the first meal of the day. 30 Capsule 5 09/06/2023 Active Rosuvastatin Calcium 5 MG Oral Tablet (Crestor) TAKE 1 TABLET BY MOUTH EVERY DAY 90 Tablet 3 09/11/2022 09/07/20 23 Discontinued Omeprazole 20 MG Oral Capsule Delayed Release (PriLOSEC)Indica tions:Dysphagia, unspecified type Take 1 Capsule by mouth in the morning. 1 hour before the first meal of the day. 30 Capsule 5 01/08/2023 09/06/20 23 Discontinued(Ref ill) Cetirizine HCl 10 MG Oral Tablet (ZyrTEC Allergy) Take 1 Tablet by mouth in the morning. 0 09/06/20 23 Discontinued documented as of this encounter (statuses as of 09/18/2023) Active Problems Problem Noted Date Diagnosed Date Atherosclerotic heart diseas e of [place] coronary artery with other forms of angina [...] as of this encounter (statuses as of 09/18/2023) Resolved Problems Problem Noted Date Diagnosed Date [...] as of this encounter (statuses as of 09/18/2023) Immunizations Name Administration Dates Next Due COVID-19 [...] on file documented as of this encounter Last Filed Vital Signs Vital Sign Reading Time Taken Comments Blood Pressure 124/70 09/06/2023 12:11 PM EST Pulse 60 09/06/2023 12:11 PM EST Temperature 37.1 C (98.7 F) 09/06/2023 12:[address] Respiratory Rate 16 09/06/2023 12:11 PM EST Oxygen Saturation 95% 09/06/2023 12:11 PM EST Inhaled Oxygen Concentration - - Weight - - Height - - Body Mass Index - - documented in this encounter Progress Notes * Jordana Hopkinsly, DO - 09/06/2023 12:19 PM EST Subjective: Isabela Story is a 88 year old male. Chief Complaint Patient presents with Acute Constant clearing of throat and coughing up mucus. HPI: Patient presents today for constant clearing of his throat and spitting. He has been taking zyrtec and acid reflux medication and nothing is helping. Now what he is spitting up has been talbert to pink and red. 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's dementia without behavioral disturbance (HCC) 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, 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 Nonsustained ventricular tachycardia (HCC) I47.29 History of DVT (deep vein thrombosis) Z86.718 Hypertensive kidney disease with stage 3a chronic kidney disease I12.9, N18.31 Chronic kidney disease, stage 3a (HCC) N18.31 Hypothyroidism E03.9 Moderate Alzheimer's dementia without behavioral disturbance, psychotic disturbance, mood disturbance, or anxiety (HCC) G30.9, F02.B0 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 90 Tablet 3 Memantine HCl 10 MG Oral Tablet (Namenda) TAKE 1 TABLET BY MOUTH TWO TIMES DAILY WITH MORNING AND EVENING MEALS 180 Tablet 1 levETIRAcetam ER 500 MG Oral Tablet Extended Release 24 Hour (Keppra XR) TAKE 1 TABLET BY MOUTH AT BEDTIME ALONG WITH 750MG TABLETS 90 Tablet 1 levETIRAcetam ER 750 MG Oral Tablet Extended Release 24 Hour (Keppra XR) TAKE 2 TABLETS BY MOUTH ATBEDTIME 180 Tablet 1 Donepezil HCl 10 MG Oral Tablet (Aricept) TAKE 1 TABLET BY MOUTH EVERY DAY WITH LARGEST MEAL OF THEDAY. 90 Tablet 1 Finasteride 5 MG Oral Tablet (Proscar) Take 1 Tablet by mouth in the morning. 90 Tablet 3 Metoprolol Succinate ER 100 MG Oral Tablet Extended Release 24 Hour (toPROL XL) TAKE 1 TABLET BY MOUTH EVERY DAY 90 Tablet 3 Amiodarone HCl 200 MG Oral Tablet (Cordarone) TAKE 1/2 TABLET BY MOUTH EVERY MORNING 45 Tablet 3 [DISCONTINUED] Rosuvastatin Calcium 5 MG Oral Tablet (Crestor) TAKE 1 TABLET BY MOUTH EVERY DAY 90 Tablet 3 nitroglycerin (NITROSTAT) 0.[address] 1 Tab under the tongue every 5 minutes as needed for Pain, Chest. Every 5 minutes x 3 for chest pain. 10 Tab 5 Cholecalciferol (VITAMIN D) 1000 UNIT Capsule ASPIRIN EC LOW STRENGTH TBEC 81 MG OR take one tablet daily 34 11 [DISCONTINUED] Cetirizine HCl 10 MG Oral Tablet (ZyrTEC Allergy) Take 1 Tablet by mouth in the morning. (Patient not taking: Reported on 09/06/2023) [DISCONTINUED] Omeprazole 20 MG Oral Capsule Delayed Release (PriLOSEC) Take 1 Capsule by mouth in the morning. 1 hour before the first meal of the day. 30 Capsule 5 No facility-administered medications prior to visit. Last reviewed on 09/06/2023 1:49 PM by Tristen Otto PA-C Review of patient's allergies indicates: Allergen Reactions Iodinated Contrast Media Objective: BP 124/70 | Pulse 60 | Temp 37.1 C (98.7 F) (Tympanic) | Resp 16 | SpO2 95% Physical Exam: General: alert, not oriented to time or place, and no distress, provides history, pt doesn't speak much, poor historian Head: Normocephalic, No masses, lesions, tenderness or abnormalities Ears: External ears normal, Canals clear, TM's Normal Nose: no mucosal erythema, no mucosal edema, no purulent discharge Oropharynx: no exudate, no erythema, lips, buccal mucosa, and tongue normal, and mucous membranes are moist Neck: supple, no adenopathy, no bruits, thyroid normal size, non-tender, without nodularity Lymph: no palpable lymphadenopathy Heart: regular rate & rhythm, no murmur, and no gallops Lungs: chest symmetric with normal AP diameter, no chest deformities noted, no chest wall tenderness, lungs clear to auscultation Pulses: carotid=2/4 w/o bruits Extremities: less than 2 second capillary refill, no joint deformities, effusion, or inflammation Reviewed speech swallow report under media tab- further workup recommended with video swallow test if symptoms worsen or don't improve ASSESSMENT/PLAN: Chronic cough (Primary) - OTOLARYNGOLOGY REFERRAL OP - XR CHEST 2 VIEWS - FLUORO SWALLOWING FUNCTION W VIDEO CINE Dysphagia, unspecified type - Omeprazole 20 MG Oral Capsule Delayed Release (PriLOSEC); Take 1 Capsule by mouth in the morning.1 hour before the first meal of the day. Check-out note: See orders 30 min spent with patient, reviewing history, performing physical exam, reviewing labs, studies, specialist OVNs, and reports, educating and coordinating care, discussing treatment, and completing note Jordana Hopkins DO documented in this encounter Nursing Notes * Katherine Whittington LPN - 09/06/2023 12:08 PM EST Patient presents today for constant clearing of his throat and spitting. He has been taking zyrtec and acid reflux medication and nothing is helping. Now what he is spitting up has been talbert to pink and red. documented in this encounter Plan of Treatment Upcoming Encounters Date Type Department Care Team (Late st Contact Info) Description 10/08/2023 1:00 PM EST Anticoagulation Pharmacy, [facility] [address] [facility] [place] [address] Pharmacist1, [facility] [address] [facility] [place] [address] 11/07/2023 8:00 AM EST Office Visit [facility]ol[facility]ology [facility] [place] [address] Anand Brewster DO [address] [facility] [place] [address] 03/13/2024 2:00 PM EDT Office Visit Cardiology, [facility] 132 [facility] [place] [address] Tristen Otto PA-C [address] [place] [address] 07/22/2024 1:45 PM EDT Office Visit Urology, [facility] 132 [facility] [place] [address] Wili Mckeon MD [address] [facility] [address] [place] [address] Scheduled Orders Name Type Priority Associated Diagnoses Orde r Schedule XR CHEST 2 VIEWS Medical Imaging Routine Chronic cough Ordered: 09/06/2023 FLUORO SWALLOWING FUNCTION W VIDEO CINE Medical Imaging Routine Chronic cough Ordered: 09/06/2023 Scheduled Referrals Name Type Priority Associated Diagnoses Order Schedule OTOLARYNGOLOGY REFERRAL OP Referral Within 30 days (routine) Chronic cough Ordered: 09/06/2023 Health Maintenance Due Date Last Done Comments Albumin/Creatinine Ratio 12/03/2019 019, 03/14/2016, 08/09/2011, Additional history exists CKD PHOS USE SMARTSET 82515 12/03/201911/22, 03/14/2016, 08/29/2012 DTaP,Tdap,and Td Vaccines (2 - Td or Tdap) 09/29/2021 09/29/2011, 09/05/1999 Depression Screening 01/23/2023 01/23/2022 CKD HGB USE SMARTSET 44253 05/23/202405/23, 05/10/2022, 11/09/2021, Additional history exists TSH [...] Not on filedocumented as of this encounter Visit Diagnoses Diagnosis Chronic cough- Primary Cough Dysphagia, unspecified type documented in this encounter Advance Directives Documents on File Type Date Recorded 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
--- OUTSIDE RECORDS SUMMARY | 2023-09-23 15:20 | External Medical Summary | Summary of Care ---
Author Name Unknown Organization [facility] Address [address] [place] [address] Phone [phone] Care Team Providers Care Steel Fabricator Name Role Phone Jordana Hopkins DO Primary Care Provider Reason for Visit * Reason Onset Date Comments Advice 09/11/2023 Encounter Details Date Type Department Care Team (Late st Contact Info) Description 09/11/2023 Telephone Family Practice [facility] [place] 200 [facility] [place] [id number] Jordana Hopkins DO 200 [facility] [place] [address] Advice Allergies Active Allergy Reactions Criticality Noted Date Comments Iodinated Contrast Media 12/15/2010 documented as of this encounter (statuses as of 09/12/2023) Medications Medication Sig Dispensed Refills Start Date [...] as of this encounter (statuses as of 09/12/2023) Active Problems Problem Noted Date Diagnosed Date Atherosclerotic heart diseas e of [place] coronary artery with other forms of angina [...] as of this encounter (statuses as of 09/12/2023) Resolved Problems Problem Noted Date Diagnosed Date [...] as of this encounter (statuses as of 09/12/2023) Immunizations Name Administration Dates Next Due COVID-19 [...] Miscellaneous Notes * Telephone Encounter - Jonna Estes LPN - 09/12/2023 2:57 PM EST Spoke with Katie in scheduling at [facility] and provided the Dx code for dysphagia. This code is approved. Order faxed, confirmation received. * Telephone Encounter - Jordana Hopkins DO - 09/12/2023 11:40 AM EST Okay- I looked it up and dysphagia should (better!) work- can you call [facility] again and fax * Telephone Encounter - Lucia Tyson RN - 09/12/2023 11:14 AM EST Called scheduling and told them aspiration code, but they said that the aspiration code is also notcovered. They don't have a list of covered codes. * Telephone Encounter - Jordana Hopkins DO - 09/12/2023 10:36 AM EST I recoded the order, that is scheduled at [facility] 09/21- can you call/fax to [facility], and see if this will work? Aspiration should be covered. * Telephone Encounter - Jonna Estes LPN - 09/11/2023 2:48 PM EST I spoke with Jaja from [facility] who reports the Dx code of Chronic Cough is being rejected by patient's insurance as not medically necessary. Jaja is asking if there are any additional codes to associate with the study. If so, please send an updated order with the new codes to [phone]. She is also requesting a phone call at [phone] option [phone] letting them know the codes. Patient is scheduled 09/21/23. * Telephone Encounter - Collette Epstein OSA - 09/11/2023 2:43 PM EST Order for Pt video swallow is not correct, asked to speak to clinic to get correct information. documented in this encounter Plan of Treatment Upcoming Encounters Date Type Department Care Team (Late st Contact Info) Description 10/08/2023 1:00 PM EST Anticoagulation Pharmacy, [facility] 200 [facility] [place] [address] Pharmacist1, [facility] 200 [facility] [place] [address] 11/07/2023 8:00 AM EST Office Visit Otolaryngology [facility] [address] [place] [address] Anand Brewster DO [address] [place] [address] 03/13/2024 2:00 PM EDT Office Visit Cardiology, [facility] [address] [place] [address] Tristen Otto PA-C [address] [place] [address] 07/22/2024 1:45 PM EDT Office Visit Urology, [facility] [address] [place] [address] Wili Mckeon MD [address] [place] [address] [place] [address] Scheduled Orders Name Type Priority Associated Diagnoses Orde r Schedule FLUORO SWALLOWING FUNCTION W VIDEO CINE Medical Imaging Routine Aspiration into airway, initial encounter Dysphagia, unspecified type Ordered: 09/12/2023 Health Maintenance Due Date Last Done Comments Albumin/Creatinine Ratio 12/03/2019 019, 03/14/2016, 08/09/2011, Additional history exists CKD PHOS USE SMARTSET 47292 12/03/201911/22, 03/14/2016, 08/29/2012 DTaP,Tdap,and Td Vaccines (2 - Td or Tdap) 09/29/2021 09/29/2011, 09/05/1999 Depression Screening 01/23/2023 01/23/2022 CKD HGB USE SMARTSET 79709 05/23/202405/23, 05/10/2022, 11/09/2021, Additional history exists TSH [...] as of this encounter Visit Diagnoses Diagnosis Dysphagia, unspecified type- Primary Aspiration into airway, initial encounter documented in this encounter Advance Directives Documents on File Type Date Recorded Patient Processor Grain Expl anation Advance Directives and Living Will 07/16/2017 LIVING WILL Power of Produce Department Supervisor 07/16/2017 POWER OF A TTORNEY [facility] CARE A Care Teams Steel Fabricator Relationship Specialty Start Date End Date Jordana Hopkins DO [address] [place] [address] PCP - General Family Medicine 03/05/17 documented as of this encounter
--- OUTSIDE RECORDS SUMMARY | 2023-09-23 15:21 | External Medical Summary | Summary of Care ---
Author Name Unknown Organization [facility] Address [address] [place] [address] Phone [phone] Care Team Providers Care Watch Dial Stoner Name Role Phone Jordana Hopkins DO Primary Care Provider Reason for Visit * Reason Comments eRx-Medication Refill Encounter Details Date Type Department Care Team (Late st Contact Info) Description 08/10/2023 Refill Family Practice [facility] 200 [facility] [place] [address] Edmund Mullins III, MD 200 [place] [address] Allergies Active Allergy Reactions Criticality Noted Date Comments Iodinated Contrast Media 12/15/2010 documented as of this encounter (statuses as of 08/10/2023) Medications Medication Sig Dispensed Refills Start Date [...] chest pain. 10 Tab 5 02/11/2018 Active Additional Information Patient not taking.Reported on 01/09/2023 Warfarin Sodium 5 MG Oral Tablet (Coumadin)Indica tions:History of DVT (deep vein thrombosis) TAKE ONE-HALF TABLET BY MOUTH ON SUNDAY, SUNDAY AND SUNDAY AND TAKE 1 TABLET ALL OTHER DAYS 75 Tablet 3 06/20/2022 Active Levothyroxine Sodium 88 MCG Oral Tablet (Levoxyl)Indicat ions:Hypothyroid ism, unspecified type TAKE 1 TABLET BY MOUTH ONCE DAILY FIRST THING IN THE MORNING (AT LEAST 30 MINUTES PRIOR TO BREAKFST OR OTHER MEDS) 90 Tablet 3 08/16/2022 Active Rosuvastatin Calcium 5 MG Oral Tablet (Crestor) TAKE 1 TABLET BY MOUTH EVERY DAY 90 Tablet 3 09/11/2022 Active Amiodarone HCl 200 MG Oral Tablet [...] the morning. 90 Tablet 3 12/20/2022 Active Omeprazole 20 MG Oral Capsule Delayed Release (PriLOSEC)Indica tions:Dysphagia, unspecified type Take 1 Capsule by mouth in the morning. 1 hour before the first meal of the day. 30 Capsule 5 01/08/2023 Active Additional Information Patient not taking.Reported on 07/18/2023 Donepezil HCl 10 MG Oral Tablet (Aricept)Indicat [...] 750MG TABLETS 90 Tablet 1 06/12/2023 Active Cetirizine HCl 10 MG Oral Tablet (ZyrTEC Allergy) Take 1 Tablet by mouth in the morning. 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 [...] as of this encounter (statuses as of 08/10/2023) Resolved Problems Problem Noted Date Diagnosed Date [...] as of this encounter (statuses as of 08/10/2023) Immunizations Name Administration Dates Next Due COVID-19 mRNA, LNP-s, No Pre serve, 2-Dose Series (Moderna) 05/11/2022,07/29/2021,11/23/2020,10/20 H1N1 2009 Influenza, IM 02/03/2010 Pneumococcal Conjugate Vacc, 13 Valent (Prevnar) 02/05/2015 Pneumococcal Polysaccharide PPV23 (Pneumovax) 01/10/2013 SEASONAL INFLUENZA, PF, 6 M & Above, IM , (FLULAVAL or FLUZONE) 08/06/2018,06/20/2017 Season Influenza, Quad, PF, Adjuvanted, 65+ Yrs, IM (FLUAD) 07/13/2020 Seasonal Influenza Virus Vac cine, Unspecified Formulation 07/13/2020,06/23/2019,08/09/2011,08/13,07/31/2005,08/16/2004,07/17/2003 ,07/25/2000 Seasonal Influenza, Quadriva lent Hd (Fluzone Hd) [...] encounter Miscellaneous Notes * Telephone Encounter - Jordana Hopkins DO - 08/10/2023 2:24 PM EST Signed Prescriptions: Disp Refills Memantine HCl 10 MG Oral Tablet (Namenda) 180 Ta*1 Sig: TAKE 1 TABLET BY MOUTH TWO TIMES DAILY WITH MORNING AND EVENING MEALS Authorizing Provider: JORDANA HOPKINS * Telephone Encounter - Camacho Nixon [facility] - 08/10/2023 1:15 PM EST Pending Prescriptions: Disp Refills Memantine HCl 10 MG Oral Tablet [Pharmacy *180 Ta*1 Sig: TAKE 1 TABLET BY MOUTH TWO TIMES DAILY WITH MORNING AND EVENING MEALS * Telephone Encounter - Camacho Nixon RPh - 08/10/2023 1:15 PM EST Pending Prescriptions: Disp Refills Memantine HCl 10 MG Oral Tablet [Pharmacy *180 Ta*1 Sig: TAKE 1 TABLET BY MOUTH TWO TIMES DAILY WITH MORNING AND EVENING MEALS 05/25/2022 (in office), 01/08/2023 (telemedicine) Visit date not found If no future appointments scheduled, and last appointment is greater than a year ago, please schedule patient for a follow-up appointment Last date the medication was ordered: 02/14/23 Pharmacy: [facility] [id number] [place] Is this request for a controlled substance?No Urine Drug Screen:No results found. However, due to the size of the patient record, not all encounters were searched. Please check Results Review for a complete set of results. Patient Phone Numbers Labs: Lab Results Component Value Date/Time CREAT 1.4 (H) 05/23/2023 09:59 AM CREAT 1.3 (H) 05/03/2020 01:44 PM POTASSIUM 4.2 05/23/2023 09:59 AM POTASSIUM 4.4 05/03/2020 01:44 PM POTASSIUM 4.4 11/25/1996 11:50 AM TSH 1.56 05/23/2023 09:59 AM TSH 0.90 08/09/2020 11:44 AM LDLCALC 71 05/16/2021 10:01 AM LDLCALC 69 03/14/2016 10:37 AM LDLCALC 126. 11/25/1996 11:50 AM LDLDIRECT 70 05/23/2023 09:59 AM LDLDIRECT 72 06/09/2019 01:13 PM LDLDIRECT 188 (H) 02/25/2019 04:09 PM ALT 50 05/23/2023 09:59 AM ALT 71 (H) 08/09/2020 11:44 AM documented in this encounter Plan of Treatment Upcoming Encounters Date Type Department Care Team (Late st Contact Info) Description 08/30/2023 1:30 PM EST Cardiac Studies Cardiology, [facility] 132 [facility] [place] [address] [facility] [address] [facility] [place] [address] 09/06/2023 1:30 PM EST Office Visit Cardiology, [facility] [address] [facility] [place] [address] Tristen Otto PA-C 132 [facility] [place] [address] 10/08/2023 1:00 PM EST Anticoagulation Pharmacy, [facility] 200 [facility] [place] [address] Pharmacist1, [facility] 200 [facility] [place] [address] 07/22/2024 1:45 PM EDT Office Visit Urology, [facility] [address] [facility] [place] [address] Wili Mckeon MD [address] [address] [place] [id number] Health Maintenance Due Date Last Done Comments Albumin/Creatinine Ratio 12/03/2019 019, 03/14/2016, 08/09/2011, Additional history exists CKD PHOS USE SMARTSET 94145 12/03/201911/22, 03/14/2016, 08/29/2012 DTaP,Tdap,and Td Vaccines (2 - Td or Tdap) 09/29/2021 09/29/2011, 09/05/1999 Depression Screening 01/23/2023 01/23/2022 CKD HGB USE SMARTSET 45919 05/23/202405/23, 05/10/2022, 11/09/2021, Additional history exists TSH [...] Documents on File Type Date Recorded 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
--- OUTSIDE RECORDS SUMMARY | 2023-09-23 15:21 | External Medical Summary ---
Author Name Unknown Address Unknown Organization [id number]:[facility] - [address] [place] [id number] Laboratory Report Ordering Provider Test Date Status VANITA BATEMAN 07/12/2023 13:15:08 Final Observation Date Value Abnormality Reference (Units) Status Bacteria identified in Specimen by Culture 07/12/2023 13:15:08 No significant growth Final Test: Culture, Urine, Quanti tative
Specimen Source: Urine, Clean Catch
Specimen Type: Urine
Specimen Date: 07/12/2023 1:15 PM
Result Date: 07/13/2023 1:03 PM
Result Status: Final result
Resulting Lab: [facility]
[address]
[facility] [address]

CULTURE

No significant growth

null Performing Location [facility] - [address] [facility] [address]
--- OUTSIDE RECORDS SUMMARY | 2023-09-23 15:21 | External Medical Summary | Summary of Care ---
Author Name Unknown Organization [facility] Address [address] [place] [address] Phone [phone] Care Team Providers Care Clinical Rn Liaison Name Role Phone Jordana Hopkins DO Primary Care Provider Reason for Visit * Reason Comments Outpatient Testing Encounter Details Date Type Department Care Team Description 07/12/2023 Laboratory Laboratory [facility] [place] [address] [place] [address] Pod3, Specimen Drop Off [facility] [address] [place] [address] Dysuria Allergies Active Allergy Reactions Severity Noted Date Comments Iodinated Contrast Media 12/15/2010 documented as of this encounter (statuses as of 07/12/2023) Medications Medication Sig Dispensed Refills Start Date End Date Status ASPIRIN EC LOW STRENGTH TBEC 81 MG OR take one tablet daily 34 11 01/06/2003 Active Cholecalciferol (VITAMIN D) 1000 UNIT Capsule 0 Active nitroglycerin (NITROSTAT) 0.4 MG SUBLIndications:Spe cial screening for malignant neoplasms, colon Place 1 Tab under the tongue every 5 minutes as needed for Pain, Chest. Every 5 minutes x 3 for chest pain. 10 Tab 5 02/11/2018 Active Additional Information Patient not taking.Reported on 01/09/2023 Warfarin Sodium 5 MG Oral Tablet (Coumadin)Indicatio ns:History of DVT (deep vein thrombosis) TAKE ONE-HALF TABLET BY MOUTH ON SUNDAY, SUNDAY AND SUNDAY AND TAKE 1 TABLET ALL OTHER DAYS 75 Tablet 3 06/20/2022 Active Levothyroxine Sodium 88 MCG Oral Tablet (Levoxyl)Indication s:Hypothyroidism, unspecified type TAKE 1 TABLET BY MOUTH ONCE DAILY FIRST THING IN THE MORNING (AT LEAST 30 MINUTES PRIOR TO BREAKFST OR OTHER MEDS) 90 Tablet 3 08/16/2022 Active Rosuvastatin Calcium 5 MG Oral Tablet (Crestor) TAKE 1 TABLET BY MOUTH EVERY DAY 90 Tablet 3 09/11/2022 Active Amiodarone HCl 200 MG Oral Tablet (Cordarone)Indicati ons:Nonsustained ventricular tachycardia (HCC) TAKE 1/2 TABLET BY MOUTH EVERY MORNING 45 Tablet 3 11/17/2022 Active Metoprolol Succinate ER 100 MG Oral Tablet Extended Release 24 Hour (toPROL XL)Indications:HTN, goal below 140/90,Nonsustained ventricular tachycardia (HCC) TAKE 1 TABLET BY MOUTH EVERY DAY 90 Tablet 3 11/23/2022 Active Finasteride 5 MG Oral Tablet (Proscar)Indication s:BPH with obstruction/lower urinary tract symptoms Take 1 Tablet by mouth in the morning. 90 Tablet 3 12/20/2022 Active Omeprazole 20 MG Oral Capsule Delayed Release (PriLOSEC)Indicatio ns:Dysphagia, unspecified type Take 1 Capsule by mouth in the morning. 1 hour before the first meal of the day. 30 Capsule 5 01/08/2023 Active Memantine HCl 10 MG Oral Tablet (Namenda) TAKE 1 TABLET BY MOUTH TWO TIMES DAILY WITH MORNING AND EVENING MEALS 180 Tablet 1 02/14/2023 Active Donepezil HCl 10 MG Oral Tablet (Aricept)Indication s:Memory loss TAKE 1 TABLET BY MOUTH EVERY [...] by mouth in the morning. 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 HTN, GOAL BELOW 140/90 08/11/2009 Overview: Modified per HTN protocol #16. Actinic keratosis 05/07/2002 CHR ISCHEMIC HRT DIS NOS 01/03/2000 Overview: Angioplasty in 1999 Other seborrheic keratosis 04/12/1999 Elevated prostate specific antigen (PSA) 09/24/1991 SENSORNEUR HEAR LOSS NOS - right documented as of this encounter (statuses as of 07/12/2023) Resolved Problems Problem Noted Date Resolved Date Acute deep vein thrombosis (DVT) of left upper e xtremity 11/28/2018 07/26/2019 Near syncope 09/23/2018 06/27/2019 Overview: ACUTE Bradycardia 09/07/2015 03/19/2018 Hypertensive kidney disease with chronic kidney disease stage III 07/05/2015 08/05/2020 Overview: Per CKD protocol #1 ADVANCE DIRECTIVE INFORMATION 02/10/2010 Overview: Yes, Copy scanned at patient level in the electronic medical record.(Go to Action, Patient File to view) Patient aware they must notify their healthcare provider of changes. Special screening for malignant neoplasms, colon 03/13/2006 07/17/2017 Overview: Colonoscopy in 2003 ABN FIND-STOOL CONTENTS - positive hemacults x 3 09/11/1999 12/02/2018 Mixed dyslipidemia 01/14/1992 09/02/2009 Overview: Per Lipid Taxonomy. HYPERTENSION NOS 08/12/2009 Overview: Modified per HTN protocol #16. Reflux esophagitis 07/17/2017 documented as of this encounter (statuses as of 07/12/2023) Immunizations Name Administration Dates Next Due COVID-19 [...] = 0.6 oz pur e alcohol) Rare Sex Assigned at Date Recorded Not on file Job Start Date Occupation Industry Not on file Not on file Not on file documented as of this encounter Plan of Treatment Upcoming Encounters Date Type Specialty Care Team Description 07/18/2023 Office Visit Urology Wili Mckeon MD [address] [place] [address] [place] [address] 08/06/2023 Anticoagulation Pharmacy Pharmacist1, [facility] [address] [facility] [address] 08/30/2023 Cardiac Studies Cardiology [facility] [address] [place] [address] 09/06/2023 Office Visit Cardiology Tristen Otto PA-C [address] [place] [address] Pending Results Name Type Priority Associated Diagnoses Date /Time URINALYSIS, REFLEX TO MICROSCOPIC Lab Routine Dysuria 07/12/2023 1:15 PM EDT CULTURE, URINE, QUANTITATIVE Lab Routine Dysuria 07/12/2023 1:15 PM EDT MICROSCOPIC EXAM, URINE Lab Routine Dysuria 07/12/2023 1:15 PM EDT Health Maintenance Due Date Last Done Comments Albumin/Creatinine Ratio 12/03/2019 019, 03/14/2016, 08/09/2011, Additional history exists CKD PHOS USE SMARTSET 57518 12/03/201911/22, 03/14/2016, 08/29/2012 DTaP,Tdap,and Td Vaccines (2 - Td or Tdap) 09/29/2021 09/29/2011, 09/05/1999 Depression Screening 01/23/2023 01/23/2022 COVID-19 Vaccine (5 - 2022- season) 2023 05/11/2022, 07/29/2021, 11/23/2020, Additional history exists CKD HGB USE SMARTSET 36286 05/23/202405/23, 05/10/2022, 11/09/2021, Additional history exists TSH 05/23/2024 05/23/2023, 04/24, 11/09/2021, Additional history exists Pneumococcal Vaccine: 65+ Years Completed 02/05/2015, 01/10/2013, 09/09/2001 Zoster Vaccines Completed 07/08/2018, 01/22, 01/30/2018, Additional history exists Influenza Vaccine (FLU shot) Completed 05/2023, 07/07/2022, 06/15/2021, Additional history exists GARDASIL-HPV IMMUNIZATION SERIES Aged [...] as of this encounter Visit Diagnoses Diagnosis Dysuria documented in this encounter Advance Directives Documents on File Type Date Recorded Patient Director Strategic Account Management Expl anation Advance Directives and Living Will 07/16/2017 LIVING WILL Power of Commercial Lender 07/16/2017 POWER OF A TTORNEY [facility] POA Care Teams Clinical Rn Liaison Relationship Specialty Start Date End Date Jordana Hopkins DO [address] [place] [address] PCP - General Family Medicine 03/05/17 documented as of this encounter
--- OUTSIDE RECORDS SUMMARY | 2023-09-23 15:21 | External Medical Summary ---
Author Name Unknown Address Unknown Organization K09:[facility] [place] [address] Laboratory Report Ordering Provider Test Date Status VANITA BATEMAN 07/12/2023 13:15:08 Final Observation Date Value Abnormality Reference (Units ) Status Color of Urine by Auto 07/12/2023 13:15:08 Yellow Light Yellow, Yellow, Dark Yellow Final Clarity, Urine 07/12/2023 13:15:08 Clear Clear Final Glucose [Mass/volume] in Urine by Automated test strip 07/12/2023 13:15:08 Negative Negative (mg/dL) Final Bilirubin.total [Presence] in Urine by Automated test strip 07/12/2023 13:15:08 Negative Negative Final Ketones [Mass/volume] in Urine by Automated test strip 07/12/2023 13:15:08 Trace Abnormal Negative (mg/dL) Final Specific gravity, Urine 07/12/2023 13:15:08 1.015 1.003-1.030 Final Hemoglobin [Presence] in Urine by Automated test strip 07/12/2023 13:15:08 Negative Negative Final pH, Urine 07/12/2023 13:15:08 5.5 5.0-7.5 (Units) Final Protein [Mass/volume] in Urine by Automated test strip 07/12/2023 13:15:08 30 Abnormal Negative (mg/dL) Final Urobilinogen [Mass/volume] in Urine by Automated test strip 07/12/2023 13:15:08 0.2 0.2, 1.0 (mg/dL) Final Nitrite [Presence] in Urine by Automated test strip 07/12/2023 13:15:08 Negative Negative Final Leukocyte esterase [Presence] in Urine by Automated test strip 07/12/2023 13:15:08 Negative Negative Final Performing Location [facility] [place] [address]
--- OUTSIDE RECORDS SUMMARY | 2023-09-23 15:21 | External Medical Summary ---
Author Name Unknown Address Unknown Organization K09:[facility] [place] [address] Laboratory Report Ordering Provider Test Date Status VANITA BATEMAN 07/12/2023 13:15:08 Final Observation Date Value Abnormality Reference (Units ) Status RBC, Urine 07/12/2023 13:15:08 0-2 0-2 (/HPF) Final WBC, Urine 07/12/2023 13:15:08 0-2 0-2 (/HPF) Final Bacteria [#/area] in Urine sediment by Microscopy high power field 07/12/2023 13:15:08 0-25 0-25 (/HPF) Final Hyaline casts, Urine 07/12/2023 13:15:08 1-4 Abnormal None (/LPF) Final Performing Location [facility] [place] [address]
--- OUTSIDE RECORDS SUMMARY | 2023-09-23 15:21 | External Medical Summary | Summary of Care ---
Author Name Unknown Organization [facility] Address [address] [place] [address] Phone [phone] Care Team Providers Care Tar Kettle Runner Name Role Phone Jordana Hopkins DO Primary Care Provider Reason for Visit * Reason Comments Follow Up Encounter Details Date Type Department Care Team (Late st Contact Info) Description 09/06/2023 1:30 PM EST Office Visit Cardiology, [facility] [address] [place] [address] Tristen Otto PA-C [address] [place] [address] Coronary artery disease involving [place] coronary artery of [place] heart without angina pectoris*; Cough, unspecified type; Dyslipidemia, goal LDL below 70; Cardiac pacemaker in situ; HTN, goal below 140/90; Nonsustained ventricular tachycardia (HCC); Sinus node dysfunction (HCC) Allergies Active Allergy Reactions Criticality Noted Date Comments Iodinated Contrast Media 12/15/2010 documented as of this encounter (statuses as of 09/07/2023) Medications Medication Sig Dispensed Refills Start Date [...] DAY 90 Tablet 3 09/11/2022 3 Discontinued Cetirizine HCl 10 MG Oral Tablet (ZyrTEC Allergy) Take 1 Tablet by mouth in the morning. 0 3 Discontinued documented as of this encounter (statuses as of 09/07/2023) Active Problems Problem Noted Date Diagnosed Date Atherosclerotic heart diseas e of [place]oon[place] coronary artery with other forms of angina [...] as of this encounter (statuses as of 09/07/2023) Resolved Problems Problem Noted Date Diagnosed Date [...] as of this encounter (statuses as of 09/07/2023) Immunizations Name Administration Dates Next Due COVID-19 [...] Sign Reading Time Taken Comments Blood Pressure 128/90 09/06/2023 1:42 PM EST Pulse 60 09/06/2023 1:42 PM EST Temperature - - Respiratory Rate 16 09/06/2023 1:42 PM EST Oxygen Saturation - - Inhaled Oxygen Concentration - - Weight 87.5 kg (193 lb) 09/06/2023 1:42 PM EST p t reported Height - - Body Mass Index 27.69 12/20/2021 3:58 PM EDT documented in this encounter Progress Notes * Tristen Otto PA-C - 09/06/2023 1:39 PM EST History of Present Illness: Isabela Story is a 88 year old male here today for cardiology evaluation. Accompanied by his which is the norm. is the historian given patient's cognitive issues. Ongoing chronic issue with deep clearing of the throat, talbert to pink sputum. Saw PCP earlier today. Notes plans to see ENT and do a video swallow evaluation. Omeprazole increased to twice a day as well. No fever, chills, night sweats. No chest pain. No palpitations. No unusual shortness of breath. No significant fluid retention. No syncope. No melena or hematochezia Patient Active Problem List Diagnosis Code Elevated [...] (HCC) G30.9, F02.B0 Atherosclerotic heart disease of [place] coronary artery with other forms of angina pectoris (HCC) I25.118 Review of patient's allergies indicates: Allergen Reactions Iodinated Contrast Media Current Outpatient Medications Medication Sig Dispense Refill ASPIRIN EC LOW STRENGTH TBEC 81 MG OR take one tablet daily 34 11 Cholecalciferol (VITAMIN D) 1000 UNIT Capsule nitroglycerin (NITROSTAT) 0.[address] 1 Tab under the tongue every 5 minutes as needed for Pain, Chest. Every 5 minutes x 3 for chest pain. 10 Tab 5 Rosuvastatin Calcium 5 MG Oral Tablet (Crestor) TAKE 1 TABLET BY MOUTH EVERY DAY 90 Tablet 3 Amiodarone HCl 200 MG Oral Tablet (Cordarone) TAKE 1/2 TABLET BY MOUTH EVERY MORNING 45 Tablet 3 Metoprolol Succinate ER 100 MG Oral Tablet Extended Release 24 Hour (toPROL XL) TAKE 1 TABLET BY MOUTH EVERY DAY 90 Tablet 3 Finasteride 5 MG Oral Tablet (Proscar) Take 1 Tablet by mouth in the morning. 90 Tablet 3 Donepezil HCl 10 MG Oral Tablet (Aricept) TAKE 1 TABLET BY MOUTH EVERY DAY WITH LARGEST MEAL OF THEDAY. 90 Tablet 1 levETIRAcetam ER 750 MG Oral Tablet Extended Release 24 Hour (Keppra XR) TAKE 2 TABLETS BY MOUTH ATBEDTIME 180 Tablet 1 levETIRAcetam ER 500 MG Oral Tablet Extended Release 24 Hour (Keppra XR) TAKE 1 TABLET BY MOUTH AT BEDTIME ALONG WITH 750MG TABLETS 90 Tablet 1 Memantine HCl 10 MG Oral Tablet (Namenda) TAKE 1 TABLET BY MOUTH TWO TIMES DAILY WITH MORNING AND EVENING MEALS 180 Tablet 1 Warfarin Sodium 5 MG Oral Tablet (Coumadin) Take 0.5 to 1 tab by mouth once daily as directed by [facility] Clinic. 90 Tablet 3 Levothyroxine Sodium 88 MCG Oral Tablet (Levoxyl) TAKE 1 TABLET BY MOUTH ONCE DAILY IN THE MORNING (AT LEAST 30 MINUTES PRIOR TO BREAKFAST OR OTHER MEDICATIONS) 90 Tablet 3 Omeprazole 20 MG Oral Capsule Delayed Release (PriLOSEC) Take 1 Capsule by mouth in the morning. 1 hour before the first meal of the day. 30 Capsule 5 No current facility-administered medications for this visit. OBJECTIVE/PHYSICAL EXAMINATION: BP 128/90 | Pulse 60 | Resp 16 | Wt 87.5 kg (193 lb) Comment: pt reported | BMI 27.69 kg/m | BSA 2.08 m General: A&Ox3. NAD. HENT: Normocephalic. Atraumatic. Eyes: PER. Conjunctiva pink, sclera clear. Neck: No carotid bruits. No JVD. No HJR. Heart: RRR, 70 bpm. Soft apical systolic murmur. No rub. No gallop. PMI is nondisplaced. Lungs: Clear to auscultation. Abdomen: +BS. Soft. Nontender. No masses or organomegaly. Extremities: Mild left greater than right lower extremity peripheral edema. No clubbing. No cyanosis. Neurology: Demented Pulses: radial=2/4, posterior tibial=2/4. Data: November 04, 2018 TTE Interpretation Summary (as per Dr. Flower): The qualitative LV ejection fraction is 60-64% (normal). The LV wall thickness is moderately increased (concentric). There is asymmetric left ventricular hypertrophy involving the apical anterior septum and apical posterior wall. Th ere is no dynamic left ventricular outflow tract obstruction a rest. The mitral valve chordae are redundant with chordal systolic anterior motion. Mild mitral regurgitation is present. November 06, 2018 Lexiscan interpretation summary: Lexiscan nuclear stress test demonstrates evidence of prior basal inferior infarction without evidence of ischemia. Gated SPECT imaging: The basal inferior wall is hypokinetic. LVEF calculated at 67%. November 18, 2020 TTE Interpretation Summary (as per Dr. Coelho): The examination is adequate to evaluate the referral indication and is of a fair technical quality. The left ventricular cavity size is normal. The LV wall thickness is moderately increased (concentric).There is asymmetric left ventricular hypertrophy involving the apical anterior septum and apical posterior wall. The septal motion is abnormal consistent with right ventricular pacemaker. The regional left ventricular wall motion is otherwise normal. The qualitative LV ejection fraction is 55-59% (normal). The left ventricular diastolic function is moderately abnormal (grade II). Moderate aortic valve sclerosis is present. There is mild mitral annular calcification. Mild mitral regurgitation is present. TSH and LFTs within normal range on May 23, 2023 ASSESSMENT AND RECOMMENDATIONS/PLAN: ASCVD Prior coronary interventions to the right coronary with chronic right coronary occlusion 2000, moderate diffuse coronary atherosclerosis. 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 Pacemaker interrogation on September 06, 2023 demonstrated appropriate function, 11 months remaininglongevity. 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 Future generator exchange discussed. Paroxysmal atrial flutter. Controlled. Continue beta-david, amiodarone, chronic Coumadin anticoagulation Nonsustained ventricular tachycardia. Controlled continue beta-david therapy and amiodarone. Symptomatic orthostatic hypotension, significantly improved following multiple medical changes in 2019. Hypertension. Controlled. Continue the current antihypertensive regimen. Unprovoked left upper extremity DVT, October 2018. Hypercoagulable workup negative. Prescribed chronic Coumadin anticoagulation (no prescription coverage) Hyperlipidemia. Atorvastatin discontinued secondary to abnormal LFTs. Tolerating low dose rosuvastatin with dose previously reduced due to abnormal LFTs LDL cholesterol 70 mg/dL on 05/23/2023 Continue rosuvastatin 5 mg/day Fatty liver, 2.3 cm cyst in the left hepatic lobe, followed by GI Stage III chronic kidney disease Hypothyroidism. Progressive dementia. Seizure disorder Chronic cough. ? Secondary to reflux, underlying pulmonary issues, Keppra. Agree with titration of omeprazole. They will let me know in about a month if they want to proceed with a non-contrast CT scan of the chest. Cardiology follow-up as scheduled or as needed. ER with emergencies. Tristen Otto PA-C Department of Cardiology I spent a total of 30-39 minutes (exact time 30 mins) on the date of service in preparation, delivery, and documentation of the care provided to Isabela Story excluding any time spent in the performance of separately billed services. This chart was completed in part utilizing [employer] VoiceRecognition Software. Grammatical errors, random word insertions, prounoun errors, and incomplete se ntences are an occasional consequence of this system due to software limitations, ambient noise, and hardware issues. Any formal questions or concerns about the content, text, or information contained within the body of this dictation should be directly addressed to the provider for clarification. documented in this encounter Nursing Notes * Vero Torres LPN - 09/06/2023 1:41 PM EST Examination Room: 2 Name: Isabela Story Date of : 1935 Reason for Visit: Follow up Problems/Concerns: Denies complaint - device checked today Interim Hosp(s): denies Chest Pain/SOB: denies MyChart Discussed: ALREADY ACTIVE Patient was instructed to not get up on the exam table until directed and assisted by their provider; patient is to remain seated in the chair/ wheelchair/ exam table for fall prevention and safety reasons. Patient is aware staff will assist stepping down off exam table with personnel. documented in this encounter Plan of Treatment Upcoming Encounters Date Type Department Care Team (Late st Contact Info) Description 10/08/2023 1:00 PM EST Anticoagulation Pharmacy, [facility] [place] [address] [place] [address] Pharmacist1, [facility] [address] [facility] [address] [address] 11/07/2023 8:00 AM EST Office Visit Otolaryngology [facility] [address] [facility] [place] [address] Aannd Brewster, [address] [place] [address] 03/13/2024 2:00 PM EDT Office Visit Cardiology, [facility] [address] [facility] [place] [address] Tristen Otto PA-C [address] [place] [address] 07/22/2024 1:45 PM EDT Office Visit Urology, [facility] [address] [facility] [place] [address] Wili Mckeon MD 27 [facility] [address] [place] [address] Health Maintenance Due Date Last Done Comments Albumin/Creatinine Ratio 12/03/2019 019, 03/14/2016, 08/09/2011, Additional history exists CKD PHOS USE SMARTSET 20298 12/03/201911/22, 03/14/2016, 08/29/2012 DTaP,Tdap,and Td Vaccines (2 - Td or Tdap) 09/29/2021 09/29/2011, 09/05/1999 Depression Screening 01/23/2023 01/23/2022 CKD HGB USE SMARTSET 19572 05/23/202405/23, 05/10/2022, 11/09/2021, Additional history exists TSH [...] as of this encounter Visit Diagnoses Diagnosis Coronary artery disease involving hoonah coronary artery of hoon[place] heart without angina pectoris- Primary Cough, unspecified type Dyslipidemia, goal LDL below 70 Other and unspecified hyperlipidemia Cardiac pacemaker in situ HTN, goal below 140/90 Unspecified essential hypertension Nonsustained ventricular tachycardia (HCC) Paroxysmal ventricular tachycardia Sinus node dysfunction (HCC) Sinoatrial node dysfunction documented in this encounter Advance Directives Documents on File Type Date Recorded Patient Counselling Psychologist Expl anation Advance Directives and Living Will 07/16/2017 LIVING WILL Power of Wireline Field Operator 07/16/2017 POWER OF A TTORNEY [facility] A Care Teams Tar Kettle Runner Relationship Specialty Start Date End Date Jordana Hopkins DO [address] [place] [address] PCP - General Family Medicine 03/05/17 documented as of this encounter"
--- OUTSIDE RECORDS SUMMARY | 2023-09-23 15:21 | External Medical Summary | Summary of Care ---
Author Name Unknown Organization [facility] Address [address] [place] [address] Phone [phone] Care Team Providers Care Branch Manager Name Role Phone Jordana Hopkins DO Primary Care Provider Reason for Visit * Reason Comments Follow Up Encounter Details Date Type Department Care Team (Late st Contact Info) Description 07/18/2023 10:45 AM EDT Office Visit [facility]rology, [facility] [address] [facility] [address] Wili Mckeon MD 27 [facility] [address] [place] [address] BPH with obstruction/lower urinary tract symptoms*; Dysuria Allergies Active Allergy Reactions Criticality Noted Date Comments Iodinated Contrast Media 12/15/2010 documented as of this encounter (statuses as of 07/18/2023) Medications Medication Sig Dispensed Refills Start Date [...] Additional Information Patient not taking.Reported on 07/18/2023 Memantine HCl 10 MG Oral Tablet (Namenda) [...] as of this encounter (statuses as of 07/18/2023) Active Problems Problem Noted Date Diagnosed Date Atherosclerotic heart diseas e of [place] coronary artery with other forms of angina [...] as of this encounter (statuses as of 07/18/2023) Resolved Problems Problem Noted Date Diagnosed Date [...] as of this encounter (statuses as of 07/18/2023) Immunizations Name Administration Dates Next Due COVID-19 [...] as of this encounter Progress Notes * Wili Mckeon MD - 07/18/2023 10:56 AM EDT [id number] PCP: JORDANA HOPKINS [address] [place] [id number] Isabela Story is a demented 88 year old male, who presents for 1 year follow- up of his history ofBPH. Patient's past notes reviewed. He remains on finasteride. Family denies pad or diaper use, difficulties associated with confusion. He remains on finasteride without BP issues. Urine culture is noted to be negative. Patient does not assist with history secondary to dementia. Obtained from family. BPH: Patient is being seen for BPH today. He has had the following symptoms: slow stream, nocturia, incomplete emptying and frequency. Severity is moderate. He has tried finasteride. BP issues associated with tamsulosin in 2019, stopped. He has previously had no surgery done. Problem has been present for years. Problem is getting worse. PSA Results: Lab Results Component Value Date/Time PSA - [facility] 3.93 02/25/2019 04:09 PM PSA - [facility] 2.6 09/05/1999 09:30 AM PSA - [facility] 2.6 08/04/1998 09:45 AM Current Outpatient Medications Medication Sig Dispense Refill ASPIRIN EC LOW STRENGTH TBEC 81 MG OR take one tablet daily 34 11 Cholecalciferol (VITAMIN D) 1000 UNIT Capsule Warfarin Sodium 5 MG Oral Tablet (Coumadin) TAKE ONE-HALF TABLET BY MOUTH ON SUNDAY, SUNDAY AND SUNDAY AND TAKE 1 TABLET ALL OTHER DAYS 75 Tablet 3 Levothyroxine Sodium 88 MCG Oral Tablet (Levoxyl) TAKE 1 TABLET BY MOUTH ONCE DAILY FIRST THING IN THE MORNING (AT LEAST 30 MINUTES PRIOR TO BREAKFST OR OTHER MEDS) 90 Tablet 3 Rosuvastatin Calcium 5 MG Oral Tablet (Crestor) [...] mouth in the morning. 90 Tablet 3 Memantine HCl 10 MG Oral Tablet (Namenda) TAKE 1 TABLET BY MOUTH TWO TIMES DAILY WITH MORNING AND EVENING MEALS 180 Tablet 1 Donepezil HCl 10 MG [...] ALONG WITH 750MG TABLETS 90 Tablet 1 Cetirizine HCl 10 MG Oral Tablet (ZyrTEC Allergy) Take 1 Tablet by mouth in the morning. nitroglycerin (NITROSTAT) 0.[address] 1 Tab under the tongue every 5 minutes as needed for Pain, Chest. Every 5 minutes x 3 for chest pain. (Patient not taking: Reported on 01/09/2023) 10 Tab 5 Omeprazole 20 MG Oral Capsule Delayed Release (PriLOSEC) Take 1 Capsule by mouth in the morning. 1 hour before the first meal of the day. (Patient not taking: Reported on 07/18/2023) 30 Capsule 5 No current facility-administered medications for this visit. Review of patient's allergies indicates: Allergen Reactions Iodinated Contrast Media Social History: Social History Tobacco Use Smoking status: Never Passive exposure: Never Smokeless tobacco: Never Substance Use Topics Alcohol use: Yes Comment: Rare Vaping/E-Cigarette Use Vaping/E-Cigarette Use Never User Vaping/E-Cigarette Substances Vaping/E-Cigarette Devices Family History Problem Relation Age of Onset Neurological Disorder Father CVA, HBP age 52 Mental Disorder Mother dementia Heart Disorder Mother post op AR No Past Hx Son No Past Hx Son No Past Hx Son No Past Hx Daughter Past Surgical History: Procedure Laterality Date COLONOSCOPY THRU STOMA, W/BIOPSY 11/29/99 Normal - Dr Salmeron COLONOSCOPY W/ BIOPSY (RECTUM) 02/27/03 normal, Dr. benton COLONOSCOPY W/ LESION REMOVAL, SNARE 01/18/11 6 mm polyp removed; f/u scope in 5 years COLONOSCOPY, DIAGNOSTIC (RECTUM) 07/08/2019 normal/[facility] CORONARY ARTERY DILATION, BALLOON 1999 REPAIR INITIAL INGUINAL HERNIA REDUCIBLE AGE 5 OR MORE 1961 SKIN CANCER EDU. 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 Past Medical History: Diagnosis Date Benign neoplasm of colon 12/2010 6 mm polyp removed; f/u scope in 5 years Chronic ischemic heart disease 01/03/2000 Angioplasty in 1999 HTN, goal to be determined Mixed dyslipidemia Sensorineural hearing loss 1985 S/P ear surgery Special screening for malignant neoplasms, colon 03/13/2006 Colonoscopy in 02/2003 Patient Active Problem List Diagnosis Code Elevated [...] disturbance, psychotic disturbance, mood disturbance, or anxiety ([facility]) G30.9, F02.B0 Atherosclerotic heart disease of [place] coronary artery with other forms of angina pectoris ([facility]) I25.118 Constitutional: (+) weakness and (+) fatigue ENT: (-) stridor Male : see HPI Musculoskeletal: (+) muscle weakness Neurology: (+) loss of balance Psychiatry: (+) memory loss Physical Exam Nursing note reviewed. Constitutional: Appearance: He is not ill-appearing or toxic-appearing. Comments: Using walker HENT: Head: Normocephalic and atraumatic. Right Ear: External ear normal. Left Ear: External ear normal. Nose: Nose normal. Mouth/Throat: Mouth: Mucous membranes are moist. Eyes: Extraocular Movements: Extraocular movements intact. Cardiovascular: Pulses: Normal pulses. Pulmonary: Effort: Pulmonary effort is normal. No respiratory distress. Abdominal: General: There is no distension. Palpations: Abdomen is soft. Musculoskeletal: Cervical back: Normal range of motion. Skin: Coloration: Skin is not pale. Neurological: Comments: Memory loss Impression/Plan: 88 yo male with LUTS. Patient's family noted episode of dysuria, worrisome for urinary tract infection. P.r.n. order for urine culture is provided. Will keep a yearly visits, continue indefinite finasteride. Contact us sooner with any significant changes in urination, otherwise will continue with current management. Above content is personally reviewed. Patient vocalizes good understanding of the treatment plan. Wili Mckeon MD 10:56 AM 07/18/2023 documented in this encounter Nursing Notes * Hellen Sanchez LPN - 07/18/2023 10:54 AM EDT 1 yr ret. Patient presents with . Frequent with small amounts of urine, nocturia x 2 (sometimesx 5-6). Taking finasteride. documented in this encounter Plan of Treatment Upcoming Encounters Date Type Department Care Team (Late st Contact Info) Description 08/06/2023 11:40 AM EST Anticoagulation Pharmacy, [facility] [address] [place] [address] Pharmacist1, [facility] [address] [facility] [place] [address] 08/30/2023 1:30 PM EST Cardiac Studies Cardiology, [facility] [address] [facility] [place] [address] [facility] [place] [address] 09/06/2023 1:30 PM EST Office Visit Cardiology, [facility] [place] [address] Tristen Otto [facility]-C [facility] [place] [address] 07/22/2024 1:45 PM EDT Office Visit Urology, [facility] [place] [address] Wili Mckeon MD 27 [facility] [address] [place] [address] Scheduled Orders Name Type Priority Associated Diagnoses Orde r Schedule CULTURE, URINE, QUANTITATIVE Lab Routine BPH with obstruction/lower urinary tract symptoms Dysuria 6 Occurrences starting 07/18/2023 until 07/18/2024 Health Maintenance Due Date Last Done Comments Albumin/Creatinine Ratio 12/03/2019 019, 03/14/2016, 08/09/2011, Additional history exists CKD PHOS USE SMARTSET 95411 12/03/201911/22, 03/14/2016, 08/29/2012 DTaP,Tdap,and Td Vaccines (2 - Td or Tdap) 09/29/2021 09/29/2011, 09/05/1999 Depression Screening 01/23/2023 01/23/2022 COVID-19 Vaccine ( season) 2023 05/11/2022, 07/29/2021, 11/23/2020, Additional history exists CKD HGB USE SMARTSET 03053 05/23/202405/23, 05/10/2022, 11/09/2021, Additional history exists TSH [...] as of this encounter Visit Diagnoses Diagnosis BPH with obstruction/lower urinary tract symptoms- Primary Hypertrophy of prostate with urinary obstruction and other lower urinary tract symptoms (LUTS) Dysuria documented in this encounter Advance Directives Documents on File Type Date Recorded Patient Paper Pattern Inspector Expl anation Advance Directives and Living Will 07/16/2017 LIVING WILL Power of Advanced Registered Nurse 07/16/2017 POWER OF A TTORNEY [facility] POA Care Teams Branch Manager Relationship Specialty Start Date End Date Jordana Hopkins DO [address] [place] [address] PCP - General Family Medicine 03/05/17 documented as of this encounter
--- OUTSIDE RECORDS SUMMARY | 2023-09-23 15:21 | External Medical Summary | Summary of Care ---
Author Name Unknown Organization [facility] Address [address] [place] [address] Phone [phone] Care Team Providers Care Pillowcase Turner Name Role Phone Jordana Hopkins DO Primary Care Provider Reason for Visit * Reason Comments Dosage Adjustment In Person (Anticoag Cl inic) Encounter Details Date Type Department Care Team (Latest Contact Info) Description 08/06/2023 11:40 AM EST Anticoagulation Pharmacy, [facility] 200 [facility] [place] [address] Pharmacist1, [facility] 200 [facility] [place] [address] History of DVT (deep vein thrombosis)* Allergies Active Allergy Reactions Criticality Noted Date Comments Iodinated Contrast Media 12/15/2010 documented as of this encounter (statuses as of 08/06/2023) Medications Medication Sig Dispensed Refills Start Date [...] as of this encounter (statuses as of 08/06/2023) Active Problems Problem Noted Date Diagnosed Date Atherosclerotic heart diseas e of [place] coronary artery with other forms of angina [...] as of this encounter (statuses as of 08/06/2023) Resolved Problems Problem Noted Date Diagnosed Date [...] as of this encounter (statuses as of 08/06/2023) Immunizations Name Administration Dates Next Due COVID-19 [...] as of this encounter Progress Notes * Taran Lopez RPh - 08/06/2023 10:41 AM EST Medication Therapy Disease Management - Anticoagulation Isabela Story 1935 Patient Findings Negatives: Signs/symptoms of thrombosis, Signs/symptoms of bleeding, Change in health, Change in alcohol use, Change in activity, Upcoming invasive procedure, Missed doses, Extra doses, Change in medications, Change in diet/appetite, Bruising INR Result As of 08/06/2023 INR goal: 2.0-3.0 INR used for dosin.0 (08/06/2023) Warfarin Plan As of 08/06/2023 Full warfarin instructions: 5 mg every Mon, Wed, Fri; 2.5 mg all other days No change documented: Taran Lopez RPh Next INR check: 10/08/2023 Repeat PT/INR in 8 week(s) Weekly dose: not changed Taran Briones RPh, CACP, CDE Clinical Pharmacist Medication Therapy Management [facility] 08/06/2023 10:53 AM documented in this encounter Plan of Treatment Upcoming Encounters Date Type Department Care Team (Late st Contact Info) Description 08/30/2023 1:30 PM EST Cardiac Studies Cardiology, [facility] 132 [facility] [place] [address] [facility] [place] [address] 09/06/2023 1:30 PM EST Office Visit Cardiology, [facility] [address] [facility] [place] [address] Tristen Otto PA-C 132 [facility] [place] [address] 10/08/2023 1:00 PM EST Anticoagulation Pharmacy, [facility] [address] [place] [address] Pharmacist1, [facility] 200 [facility] [place] [address] 07/22/2024 1:45 PM EDT Office Visit Urology, [facility] [address] [facility] [place] [address] Wili Mckeon MD 27 [facility] [address] [place] [id number] Health Maintenance Due Date Last Done Comments Albumin/Creatinine Ratio 12/03/2019 019, 03/14/2016, 08/09/2011, Additional history exists CKD PHOS USE SMARTSET 69481 12/03/201911/22, 03/14/2016, 08/29/2012 DTaP,Tdap,and Td Vaccines (2 - Td or Tdap) 09/29/2021 09/29/2011, 09/05/1999 Depression Screening 01/23/2023 01/23/2022 COVID-19 Vaccine ( season) 2023 05/11/2022, 07/29/2021, 11/23/2020, Additional history exists CKD HGB USE SMARTSET 70514 05/23/202405/233, 05/10/2022, 11/09/2021, Additional history exists TSH 05/23/2024 [...] Procedure Name Priority Date/Time Associated Diagnosis Comments INR FINGERSTICK, POINT OF CARE STAT 08/06/2023 10:45 AM EST History of DVT (deep vein thrombosis) documented in this encounter Results * INR FINGERSTICK, POINT OF CARE (08/06/2023 10:45 AM EST) Fingerstick INR 2.0 INR 10:48 AM EST [employer] [facility] [employer] 56-02 Blood 08/06/2023 10:4 5 AM EST 08/06/2023 10:48 AM EST [facility] [employer] [place] 56-02 - 08/06/2023 10:48 AM EST Therapeutic ranges for non-operative patients: Prophylaxsis/treatment of DVT: (Range:2.0-3.0) Treatment of pulmonary embolism:(Range:2.0-3.0) Prevention of systemic embolism from: -tissue heart valves -acute myocardial infarction -valvular heart disease -atrial fibrillation (Range: 2.0-3.0) Mechanical prosthetic valves: (Range: 2.5-3.5) [facility] LAB POINT O F CARE TEST DOCKED DEVICE UNSOLICITED RESULTS [facility] [place] 56-02 200 [facility] [place] [address] documented in this encounter Visit Diagnoses Diagnosis History of DVT (deep vein thrombosis)- Primary Personal history of venous thrombosis and embolism documented in this encounter Advance Directives Documents on File Type Date Recorded 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
--- OUTSIDE RECORDS SUMMARY | 2023-09-23 15:21 | External Medical Summary | Summary of Care ---
Author Name Unknown Organization [facility] Address [address] [place] [address] Phone [phone] Care Team Providers Care Manager Business Operations Name Role Phone Ruth Hopkins DO Primary Care Provider Reason for Visit * Reason Comments eRx-Medication Refill Encounter Details Date Type Department Care Team (Late st Contact Info) Description 08/21/2023 Refill Family Practice [facility] [place] 200 [facility] [place] [id number] Ruht Hopkins DO 200 [facility] [place] [address] Routine medical exam*; History of DVT (deep vein thrombosis); Encounter for long-term (current) use of medications; Chronic kidney disease, stage 3a (HCC); Hypertensive kidney disease with stage 3a chronic kidney disease Allergies Active Allergy Reactions Criticality Noted Date Comments Iodinated Contrast Media 12/15/2010 documented as of this encounter (statuses as of 08/22/2023) Medications Medication Sig Dispensed Refills Start Date [...] Additional Information Patient not taking.Reported on 01/09/2023 Levothyroxine Sodium 88 MCG Oral Tablet (Levoxyl)Indicat [...] [facility] Clinic. 90 Tablet 3 08/22/2023 Active Warfarin Sodium 5 MG Oral Tablet (Coumadin)Indica tions:History of DVT (deep vein thrombosis) TAKE ONE-HALF TABLET BY MOUTH ON SUNDAY, SUNDAY AND SUNDAY AND TAKE 1 TABLET ALL OTHER DAYS 75 Tablet 3 06/20/2022 3 Discontinued documented as of this encounter (statuses as of 08/22/2023) Active Problems Problem Noted Date Diagnosed Date Atherosclerotic heart diseas e of [place] coronary artery with other forms of angina [...] as of this encounter (statuses as of 08/22/2023) Resolved Problems Problem Noted Date Diagnosed Date [...] as of this encounter (statuses as of 08/22/2023) Immunizations Name Administration Dates Next Due COVID-19 [...] encounter Miscellaneous Notes * Telephone Encounter - Mercedez Sotelo RPh - 08/22/2023 11:18 AM EST Signed Prescriptions: Disp Refills Warfarin Sodium 5 MG Oral Tablet (Coumadin)90 Tab*3 Sig: Take 0.5 to 1 tab by mouth once daily as directed by Coumadin Clinic.Authorizing Provider: RUTH HOPKINS User: MERCEDEZ SOTELO * Telephone Encounter - NohemyMercedez herrera [facility] - 08/22/2023 11:14 AM EST Updated sig to reflect most recent ACC plan: Warfarin Plan As of 08/06/2023 Full warfarin instructions: 5 mg every Mon, Wed, Fri; 2.5 mg all other days No change documented: Anali Taran Myers [facility] Next INR check: 10/08/2023 Thank you, Mercedez Sotelo, PharmD Clinical Pharmacist [facility] (formerly Telepharmacy) 08/22/23 11:16 AM [phone] documented in this encounter Plan of Treatment Upcoming Encounters Date Type Department Care Team (Late st Contact Info) Description 08/30/2023 1:30 PM EST Cardiac Studies Cardiology, [facility] [address] [place] [address] Cat[facility] [place] [address] 09/06/2023 1:30 PM EST Office Visit Cardiology, [facility] [address] [place] [address] Tristen Otto PA-C 132 [facility] [place] [address] 10/08/2023 1:00 PM EST Anticoagulation Pharmacy, [facility] 200 [facility] [place] [address] Pharmacist1, [facility] 200 [facility] ON [facility] OF [facility] [place] [address] 07/22/2024 1:45 PM EDT Office Visit Urology, [facility] [place] [address] Wili Mckeon MD 27 [facility] [place] [address] [place] [address] Scheduled Orders Name Type Priority Associated Diagnoses Orde r Schedule ALBUMIN / CREATININE RATIO, URINE Lab Routine Routine medical exam Hypertensive kidney disease with stage 3a chronic kidney disease Expected: 09/05/2023 (Approximate), Expires: 08/22/2024 PHOSPHORUS Lab Routine Routine medical exam Chronic kidney disease, stage 3a (HCC) Expected: 09/05/2023 (Approximate), Expires: 08/22/2024 Health Maintenance Due Date Last Done Comments Albumin/Creatinine Ratio 12/03/2019 019, 03/14/2016, 08/09/2011, Additional history exists CKD PHOS USE SMARTSET 52410 12/03/201911/22, 03/14/2016, 08/29/2012 DTaP,Tdap,and Td Vaccines (2 - Td or Tdap) 09/29/2021 09/29/2011, 09/05/1999 Depression Screening 01/23/2023 01/23/2022 CKD HGB USE SMARTSET 74455 05/23/202405/23, 05/10/2022, 11/09/2021, Additional history exists TSH [...] as of this encounter Visit Diagnoses Diagnosis Routine medical exam- Primary Routine general medical examination at a health care facility History of DVT (deep vein thrombosis) Personal history of venous thrombosis and embolism Encounter for long-term (current) use of medications Encounter for long-term (current) use of other medications Chronic kidney disease, stage 3a (HCC) Hypertensive kidney disease with stage 3a chronic kidney disease documented in this encounter Advance Directives Documents on File Type Date 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
--- OUTSIDE RECORDS SUMMARY | 2023-09-23 15:21 | External Medical Summary | Summary of Care ---
Author Name Unknown Organization [facility] Address [address] [place] [address] Phone [phone] Care Team Providers Care Stone Spreader Operator Name Role Phone Jordana Hopkins DO Primary Care Provider Reason for Visit * Reason Comments eRx-Medication Refill Encounter Details Date Type Department Care Team (Late st Contact Info) Description 08/21/2023 Refill Cardiology, [facility] [address] [place] [address] Reta Subramanian PA-C [address] [place] [address] Hypothyroidism, unspecified type Allergies Active Allergy Reactions Criticality [...] Additional Information Patient not taking.Reported on 01/09/2023 Rosuvastatin Calcium 5 MG Oral Tablet (Crestor) [...] OTHER MEDICATIONS) 90 Tablet 3 08/22/2023 Active Levothyroxine Sodium 88 MCG Oral Tablet (Levoxyl)Indicat ions:Hypothyroid ism, unspecified type TAKE 1 TABLET BY MOUTH ONCE DAILY FIRST THING IN THE MORNING (AT LEAST 30 MINUTES PRIOR TO BREAKFST OR OTHER MEDS) 90 Tablet 3 08/16/2022 3 Discontinued documented as of this encounter (statuses as of 08/22/2023) Active Problems Problem Noted Date Diagnosed Date Atherosclerotic heart diseas e of [place] coronary artery with other forms of angina [...] encounter Miscellaneous Notes * Telephone Encounter - Reta Subramanian PA-C - 08/22/2023 4:11 PM ESTSigned Prescriptions: Disp Refills Levothyroxine Sodium 88 MCG Oral Tablet (L*90 Tab*3 Sig: TAKE 1 TABLET BY MOUTH ONCE DAILY IN THE MORNING (AT LEAST 30 MINUTES PRIOR TO BREAKFAST OR OTHER MEDICATIONS) Authorizing Provider: RETA SUBRAMANIAN * Telephone Encounter - Svetlana Marion CMA - 08/22/2023 4:07 PM ESTPending Prescriptions: Disp Refills Levothyroxine Sodium 88 MCG Oral Tablet (L*90 Tab*3 Sig: TAKE 1 TABLET BY MOUTH ONCE DAILY IN THE MORNING (AT LEAST 30 MINUTES PRIOR TO BREAKFAST OR OTHER MEDICATIONS) * Telephone Encounter - Svetlana Marion CMA - 08/22/2023 4:06 PM EST Did you pend patient's preferred pharmacy and medication before forwarding?yes Pharmacy: [facility] [address] [place] [address] Pending Prescriptions: Disp Refills Levothyroxine Sodium 88 MCG Oral Tablet (*90 Tab*3 Sig: TAKE 1 TABLET BY MOUTH ONCE DAILY IN THE MORNING (AT LEAST 30 MINUTES PRIOR TO BREAKFAST OR OTHER MEDICATIONS) Last Visit: 01/09/2023 (in office), Visit date not found (telemedicine) Next Visit: 08/30/2023 If no future appointments scheduled, and last appointment is greater than a year ago, please schedule patient for a follow-up appointment Last date the medication was ordered: Is this request for a controlled substance?No [...] 08/30/2023 1:30 PM EST Cardiac Studies Cardiology, [facility] [place] [address] [facility] [address] [facility] [place] [address] 09/06/2023 1:30 PM EST Office Visit Cardiology, [facility] [address] [place] [address] Reta Subramanian PA-C 132 [facility] [place] [address] 10/08/2023 1:00 PM EST Anticoagulation Pharmacy, [facility] 200 [facility] [place] [address] Pharmacist1, [facility] 200 [facility] [address] 07/22/2024 1:45 PM EDT Office Visit Urology, [facility] [address] [facility] [place] [address] Wili [facility]keon MD [facility] [address] [place] [address] Health Maintenance Due Date Last Done Comments Albumin/Creatinine Ratio 12/03/2019 019, 03/14/2016, 08/09/2011, Additional history exists CKD PHOS USE SMARTSET 26370 12/03/201911/22, 03/14/2016, 08/29/2012 DTaP,Tdap,and Td Vaccines (2 - Td or Tdap) 09/29/2021 09/29/2011, 09/05/1999 Depression Screening 01/23/2023 01/23/2022 CKD HGB USE SMARTSET 07096 05/23/202405/23, 05/10/2022, 11/09/2021, Additional history exists TSH [...] as of this encounter Visit Diagnoses Diagnosis Hypothyroidism, unspecified type documented in this encounter Advance Directives Documents on File Type Date Recorded Patient 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
--- OUTSIDE RECORDS SUMMARY | 2023-09-23 15:21 | External Medical Summary | Summary of Care ---
Author Name Unknown Organization [facility] Address [address] [place] [address] Phone [phone] Care Team Providers Care Ship Surveyor Name Role Phone Jordana Hopkins DO Primary Care Provider Reason for Visit * Reason Comments Dosage Adjustment In Person (Anticoag Cl inic) Encounter Details Date Type Department Care Team Description 07/02/2023 Anticoagulation Pharmacy, [facility] 200 [facility] [place] [address] Pharmacist1, [facility] 200 [facility] [place] [address] History of DVT (deep vein thrombosis)* Allergies Active Allergy Reactions Severity Noted Date Comments Iodinated Contrast Media 12/15/2010 documented as of this encounter (statuses as of 07/02/2023) Medications Medication Sig Dispensed Refills Start Date [...] 750MG TABLETS 90 Tablet 1 06/12/2023 Active documented as of this encounter (statuses as of 07/02/2023) Active Problems Problem Noted Date 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, [...] as of this encounter (statuses as of 07/02/2023) Resolved Problems Problem Noted Date Resolved Date [...] as of this encounter (statuses as of 07/02/2023) Immunizations Name Administration Dates Next Due COVID-19 [...] of this encounter Progress Notes * Taran Myers RPh - 07/02/2023 12:53 PM EDT Medication Therapy Disease Management - Anticoagulation Isabela Story 1935 Patient Findings Negatives: Signs/symptoms of thrombosis, Signs/symptoms of bleeding, Change in health, Change in alcohol use, Change in activity, Upcoming invasive procedure, Missed doses, Extra doses, Change in medications, Change in diet/appetite, Bruising INR Result As of 07/02/2023 INR goal: 2.0-3.0 INR used for dosin.0 (07/02/2023) Warfarin Plan As of 07/02/2023 Full warfarin instructions: 5 mg every Mon, Wed, Fri; 2.5 mg all other days No change documented: Taran Myers RPh Next INR check: 08/06/2023 Repeat PT/INR in 5 week(s) Weekly dose: not changed Taran Briones RPh, CACSarita, CDE Clinical Pharmacist Medication Therapy Management Clinic 07/02/2023 12:59 PM documented in this encounter Plan of Treatment Upcoming Encounters Date Type Specialty Care Team Description 07/18/2023 Office Visit Urology Wili Mckeon MD [address] [place] [address] [place] [address] 08/06/2023 Anticoagulation Pharmacy Pharmacist, [facility] [address] [place], [place] [address] 08/30/2023 Cardiac Studies Cardiology [facility] 132 [facility] [place] [address] 09/06/2023 Office Visit Cardiology Tristen Otto PA-C [address] [place] [address] Health Maintenance Due Date Last Done Comments Albumin/Creatinine Ratio 12/03/2019 019, 03/14/2016, 08/09/2011, Additional history exists CKD PHOS USE SMARTSET 73570 12/03/201911/22, 03/14/2016, 08/29/2012 DTaP,Tdap,and Td Vaccines (2 - Td or Tdap) 09/29/2021 09/29/2011, 09/05/1999 Depression Screening 01/23/2023 01/23/2022 COVID-19 Vaccine ( season) 2023 05/11/2022, 07/29/2021, 11/23/2020, Additional history exists CKD HGB USE SMARTSET 30663 05/23/202405/23, 05/10/2022, 11/09/2021, Additional history exists TSH [...] Comments INR FINGERSTICK, POINT OF CARE STAT 07/02/2023 12:57 PM EDT History of DVT (deep vein thrombosis) documented in this encounter Results * INR FINGERSTICK, POINT OF CARE (07/02/2023 12:57 PM EDT) Fingerstick INR 2.0 INR 12:58 PM EDT [facility] 56-02 Blood 07/02/2023 12:5 7 PM EDT 07/02/2023 12:58 PM EDT Narrative [facility] 56-02 - 07/02/2023 12:58 PM EDT Therapeutic ranges for non-operative patients: Prophylaxsis/treatment of DVT: (Range:2.0-3.0) Treatment of pulmonary embolism:(Range:2.0-3.0) Prevention of systemic embolism from: -tissue heart valves -acute myocardial infarction -valvular heart disease -atrial fibrillation (Range: 2.0-3.0) Mechanical prosthetic valves: (Range: 2.5-3.5) [facility] LAB POINT O F CARE TEST DOCKED DEVICE UNSOLICITED RESULTS [facility] 56-02 [address] [facility] [id number] documented in this encounter Visit Diagnoses Diagnosis History of DVT (deep vein thrombosis)- Primary Personal history of venous thrombosis and embolism documented in this encounter Advance Directives Documents on File Type Date 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
--- OUTSIDE RECORDS SUMMARY | 2023-09-23 15:21 | External Medical Summary ---
Author Name Unknown Address Unknown Organization K09:[facility] [place] [address] Laboratory Report Ordering Provider Test Date Status CAMILO JANG 08/06/2023 10:45:10 Final Therapeutic ranges for non-o perative patients:
Prophylaxsis/treatment of DVT: (Range:2.0-3.0)
Treatment of pulmonary embolism:(Range:2.0-3.0)
Prevention of systemic embolism from:
-tissue heart valves
-acute myocardial infarction
-valvular heart disease
-atrial fibrillation
(Range: 2.0-3.0)
Mechanical prosthetic valves: (Range: 2.5-3.5) Observation Date Value Abnormality Reference (Units ) Status INR in Capillary blood by Coagulation assay 08/06/2023 10:45:10 2.0 (INR) Final Performing Location [facility] [place] [address]
--- OUTSIDE RECORDS SUMMARY | 2023-09-23 15:21 | External Medical Summary | Summary of Care ---
Author Name Unknown Organization [facility] Address [address] [place] [address] Phone [phone] Care Team Providers Care Rivet Passer Name Role Phone Jordana Hopkins DO Primary Care Provider Reason for Visit * Reason Comments Acute Pt being seen for is sues with possible UTI, and has symptoms of pain on urination, and more getting up at night then usual. Encounter Details Date Type Department Care Team Description 07/12/2023 Office Visit Family Practice [facility] [address] [place] [address] Marily Hinkle DO [address] [place] [address] Dysuria*; Atherosclerotic heart disease of [place] coronary artery with other forms of angina pectoris (HCC) Allergies Active Allergy Reactions Severity Noted Date [...] Noted Date Atherosclerotic heart diseas e of [place] coronary artery with other forms of angina [...] Sign Reading Time Taken Comments Blood Pressure 140/90 07/12/2023 9:56 AM EDT Pulse 83 07/12/2023 9:56 AM EDT Temperature 36.2 C (97.2 F) 07/12/2023 9:56 AM ED T Respiratory Rate 16 07/12/2023 9:56 AM EDT Oxygen Saturation - - Inhaled Oxygen Concentration - - Weight 87.5 kg (193 lb) 07/12/2023 9:56 AM EDT Height - - Body Mass Index 27.69 12/20/2021 3:58 PM EDT documented in this encounter Progress Notes * Marily Hinkle, - 07/12/2023 10:04 AM EDT Subjective: Isabela Story is a 88 year old male. Chief Complaint Patient presents with Acute Pt being seen for issues with possible UTI, and has symptoms of pain on urination, and more gettingup at night then usual. There are no exam notes on file for this visit. HPI: This is a 88 year old male with PMHx as below presents with acute illness as noted above Nonverbal present to explain - getting up more often in middle of night and complaints of pain with urination HTN - BP mild elevation today Otherwise at baseline No hx of kidney stones Cardio following for CAD - on BB, statin, asa, nitro prn Health Maintenance Due Topic Date Due Albumin/Creatinine Ratio 12/03/2019 CKD PHOS USE SMARTSET 34572 12/03/2019 DTaP,Tdap,and Td Vaccines (2 - Td or Tdap) 09/29/2021 Depression Screening 01/23/2023 COVID-19 Vaccine ( season) 2023 Patient Active Problem List Diagnosis Code Elevated [...] (HCC) G30.9, F02.B0 Atherosclerotic heart disease of [place] coronary artery with other forms of angina pectoris (HCC) I25.118 Current Outpatient Medications Medication Sig Dispense Refill [...] mouth in the morning. 90 Tablet 3 Omeprazole 20 MG Oral Capsule Delayed Release (PriLOSEC) Take 1 Capsule by mouth in the morning. 1 hour before the first meal of the day. 30 Capsule 5 Memantine HCl 10 MG Oral Tablet (Namenda) [...] taking: Reported on 01/09/2023) 10 Tab 5 No current facility-administered medications for this visit. Past Medical History: Diagnosis Date Benign neoplasm of colon 12/2010 6 mm polyp removed; f/u scope in 5 years Chronic ischemic heart disease 01/03/2000 Angioplasty in 1999 HTN, goal to be determined Mixed dyslipidemia Sensorineural hearing loss 1985 S/P ear surgery Special screening for malignant neoplasms, colon 03/13/2006 Colonoscopy in 02/2003 Past Surgical History: Procedure Laterality Date COLONOSCOPY THRU STOMA, W/BIOPSY 11/29/99 Normal - Dr Salmeron COLONOSCOPY W/ BIOPSY (RECTUM) 02/27/03 ani, Dr. benton COLONOSCOPY W/ LESION REMOVAL, SNARE 01/18/11 6 mm polyp removed; f/u scope in 5 years COLONOSCOPY, DIAGNOSTIC (RECTUM) 07/08/2019 normal/[facility] CORONARY ARTERY DILATION, BALLOON 2000 REPAIR INITIAL INGUINAL HERNIA REDUCIBLE AGE 5 OR MORE 1961 SKIN CANCER EDU. 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 Review of patient's allergies indicates: Allergen Reactions Iodinated Contrast Media Family History Problem Relation Age of Onset Neurological Disorder Father CVA, HBP age 52 Mental Disorder Mother dementia Heart Disorder Mother post op [place] No Past Hx Son No Past Hx Son No Past Hx Son No Past Hx Daughter Family Status Relation Status Fa at age 52 CVA, HBP Mo at age 81 dementia, [place] Son Alive Son Alive Son Alive Racheal Alive Son (Not Specified) Son (Not Specified) Son (Not Specified) Racheal (Not Specified) Social History Socioeconomic History Marital status: Spouse name: Not on file Number of children: 4 Years of education: Not on file Highest education level: Not on file Occupational History 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: [employer] Tobacco Use Smoking status: Never Passive exposure: Never Smokeless tobacco: Never Vaping Use Vaping Use: Never used Substance and Sexual Activity Alcohol use: Yes Comment: Rare Drug use: No Sexual activity: Yes Partners: Female Other Topics Concern Not on file Social History Narrative 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 Wt Readings from Last 3 Encounters: 07/12/23 87.5 kg (193 lb) 04/12/23 87.7 kg (193 lb 4.8 oz) 01/09/23 89.4 kg (197 lb 3.2 oz) Results for orders placed or performed in visit on 07/02/23 INR FINGERSTICK, POINT OF CARE Result Value Ref Range Fingerstick INR 2.0 INR *Note: Due to a large number of results and/or encounters for the requested time period, some results have not been displayed. A complete set of results can be found in Results Review. OBJECTIVE: Physical Exam: BP 140/90 | Pulse 83 | Temp 36.2 C (97.2 F) (Tympanic) | Resp 16 | Wt 87.5 kg (193 lb) | BMI 27.69 kg/m | BSA 2.08 m General: alert, healthy, and no distress Heart: regular rate & rhythm, no murmur, and no gallops Lungs: lungs clear to auscultation Back: range of motion is normal, no tenderness to percussion or palpation Dysuria (Primary) - URINALYSIS, REFLEX TO MICROSCOPIC; Future; Expected date: 07/12/2023 - CULTURE, URINE, QUANTITATIVE; Future; Expected date: 07/12/2023 Atherosclerotic heart disease of [place] coronary artery with other forms of angina pectoris (HCC) Marily Hinkle DO documented in this encounter Plan of Treatment Upcoming Encounters Date Type Specialty Care Team Description 07/18/2023 Office Visit Urology Wili Mckeon MD [address] [place] [address] [place] [id number] 08/06/2023 Anticoagulation Pharmacy Pharmacist1, [facility] [address] [place], [place] [phone] 08/30/2023 Cardiac Studies Cardiology [facility] [address] [place] [address] 09/06/2023 Office Visit Cardiology Tristen Otto [facility]-C [address] [facility] [address] Scheduled Orders Name Type Priority Associated Diagnoses Orde r Schedule URINALYSIS, REFLEX TO MICROSCOPIC Lab Routine Dysuria Expected: 07/12/2023 (Approximate), Expires: 08/12/2024 CULTURE, URINE, QUANTITATIVE Lab Routine Dysuria Expected: 07/12/2023 (Approximate), Expires: 08/12/2024 Health Maintenance Due Date Last Done Comments Albumin/Creatinine Ratio 12/03/2019 019, 03/14/2016, 08/09/2011, Additional history exists CKD PHOS USE SMARTSET 21728 12/03/201911/22, 03/14/2016, 08/29/2012 DTaP,Tdap,and Td Vaccines (2 - Td or Tdap) 09/29/2021 09/29/2011, 09/05/1999 Depression Screening 01/23/2023 01/23/2022 COVID-19 Vaccine ( season) 2023 05/11/2022, 07/29/2021, 11/23/2020, Additional history exists CKD HGB USE SMARTSET 81644 05/23/202405/23, 05/10/2022, 11/09/2021, Additional history exists TSH [...] as of this encounter Visit Diagnoses Diagnosis Dysuria- Primary Atherosclerotic heart disease of [place] coronary artery with other forms of angina pectoris (HCC) documented in this encounter Advance Directives Documents on File Type Date Recorded Patient Patient Relations Manager Expl anation Advance Directives and Living Will 07/16/2017 LIVING WILL Power of Director Communications 07/16/2017 POWER OF A [facility] POA Care Teams Rivet Passer Relationship Specialty Start Date End Date Jordana Hopkins DO [address] [place] [address] PCP - General Family Medicine 03/05/17 documented as of this encounter"
--- OUTSIDE RECORDS SUMMARY | 2023-09-23 15:21 | External Medical Summary | Summary of Care ---
Author Name Unknown Organization [facility] Address [address] [place] [address] Phone [phone] Care Team Providers Care Physical Chemistry Professor Name Role Phone Jordana Hopkins DO Primary Care Provider Reason for Visit * Reason Onset Date Comments Appointment 08/24/2023 Device clinic ap pointment scheduled 08/30/23 Encounter Details Date Type Department Care Team (Late st Contact Info) Description 08/24/2023 Telephone [facility] [address] [place] [address] [place] [facility] [address] [place] [address] Appointment (Device clinic appointment tosha... Allergies Active Allergy Reactions Criticality Noted Date Comments Iodinated Contrast Media 12/15/2010 documented as of this encounter (statuses as of 08/24/2023) Medications Medication Sig Dispensed Refills Start Date [...] 07/18/2023 Donepezil HCl 10 MG Oral Tablet (Aricept)Indication [...] Active Warfarin Sodium 5 MG Oral Tablet (Coumadin)Indicatio ns:History of DVT (deep vein thrombosis) Take 0.5 to 1 tab by mouth once daily as directed by Coumadin Clinic. 90 Tablet 3 08/22/2023 Active Levothyroxine Sodium 88 MCG Oral Tablet (Levoxyl)Indication s:Hypothyroidism, unspecified type TAKE 1 TABLET BY MOUTH ONCE DAILY IN THE MORNING (AT LEAST 30 MINUTES PRIOR TO BREAKFAST OR OTHER MEDICATIONS) 90 Tablet 3 08/22/2023 Active documented as of this encounter (statuses as of 08/24/2023) Active Problems Problem Noted Date Diagnosed Date Atherosclerotic heart diseas e of [place] coronary artery with other forms of angina [...] as of this encounter (statuses as of 08/24/2023) Resolved Problems Problem Noted Date Diagnosed Date [...] as of this encounter (statuses as of 08/24/2023) Immunizations Name Administration Dates Next Due COVID-19 [...] encounter Miscellaneous Notes * Telephone Encounter - Lizet Valero LPN - 08/24/2023 1:49 PM EST MyG message sent to patient regarding cancellation of device clinic appointment scheduled for 08/30/23. Patient also informed that he needs to submit a current remote transmission. documented in this encounter Plan of Treatment Upcoming Encounters Date Type Department Care Team (Late st Contact Info) Description 08/30/2023 1:30 PM EST Cardiac Studies [facility] [address] [place] [address] [place], Pacer Clinic [facility] [address] [place] [address] 09/06/2023 1:30 PM EST Office Visit [facility] [address] [place] [address] Tristen Otto PA-C [address] [place] [address] 10/08/2023 1:00 PM EST Anticoagulation Pharmacy, [facility] 200 [facility] [place] [address] Pharmacist1, [facility] [address] [facility] [address] [address] 07/22/2024 1:45 PM EDT Office Visit Urology, [facility] [address] [place] [address] Wili Mckeon MD [address] [place] [address] [place] [address] Health Maintenance Due Date Last Done Comments Albumin/Creatinine Ratio 12/03/2019 019, 03/14/2016, 08/09/2011, Additional history exists CKD PHOS USE SMARTSET 16415 12/03/201911/22, 03/14/2016, 08/29/2012 DTaP,Tdap,and Td Vaccines (2 - Td or Tdap) 09/29/2021 09/29/2011, 09/05/1999 Depression Screening 01/23/2023 01/23/2022 CKD HGB USE SMARTSET 83584 05/23/202405/23, 05/10/2022, 11/09/2021, Additional history exists TSH [...] Documents on File Type Date Recorded Patient Chromosomal Disorders Counselor Expl anation Advance Directives and Living Will 07/16/2017 LIVING WILL Power of Compressor House Operator 07/16/2017 POWER OF A TTORNEY [facility] POA Care Teams Physical Chemistry Professor Relationship Specialty Start Date End Date Jordana Hopkins DO [address] [place] [address] PCP - General Family Medicine 03/05/17 documented as of this encounter
--- OUTSIDE RECORDS SUMMARY | 2023-09-23 15:21 | External Medical Summary | Summary of Care ---
Author Name Unknown Organization [facility] Address [address] [place] [address] Phone [phone] Care Team Providers Care Men'S Basketball Coach Name Role Phone Jordana Hopkins DO Primary Care Provider Reason for Visit * Reason Comments Acute Pt being seen for is sues with possible UTI, and has symptoms of pain on urination, and more getting up at night then usual. Encounter Details Date Type Department Care Team Description 07/12/2023 Office Visit Family Practice [facility] [address] [place] [address] Marily Hinkle DO [address] [place] [address] Dysuria*; Atherosclerotic heart disease of [place] coronary artery with other forms of angina [...] Noted Date Atherosclerotic heart diseas e of [place] coronary artery with other forms of angina [...] Albumin/Creatinine Ratio 12/03/2019 CKD PHOS USE SMARTSET 21632 12/03/2019 DTaP,Tdap,and Td Vaccines (2 - Td [...] (HCC) G30.9, F02.B0 Atherosclerotic heart disease of [place] coronary artery with other forms of angina [...] 5 years COLONOSCOPY, DIAGNOSTIC (RECTUM) 07/08/2019 normal/[facility] CORONARY ARTERY DILATION, BALLOON 2000 REPAIR INITIAL INGUINAL HERNIA REDUCIBLE AGE 5 OR MORE 1961 SKIN CANCER EDU. 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 Review of patient's allergies indicates: Allergen Reactions Iodinated Contrast Media Family History Problem Relation Age of Onset Neurological Disorder Father CVA, HBP age 52 Mental Disorder Mother dementia Heart Disorder Mother post op [place] No Past Hx Son No Past Hx Son No Past Hx Son No Past Hx Daughter Family Status Relation Status Fa at age 52 CVA, HBP Mo at age 81 dementia, [place] Son Alive Son Alive Son Alive Racheal Alive Son (Not Specified) Son (Not Specified) Son (Not Specified) Racheal (Not Specified) Social History Socioeconomic History Marital status: Spouse name: Not on file Number of children: 4 Years of education: Not on file Highest education level: Not on file Occupational History 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: [employer] Tobacco Use Smoking status: Never Passive exposure: Never Smokeless tobacco: Never Vaping Use Vaping Use: Never used Substance and Sexual Activity Alcohol use: Yes Comment: Rare Drug use: No Sexual activity: Yes Partners: Female Other Topics Concern Not on file Social History Narrative 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 Social Determinants of Health Financial Resource Strain: [...] Expected date: 07/12/2023 Atherosclerotic heart disease of [place] coronary artery with other forms of angina pectoris (HCC) Marily Hinkle DO documented in this encounter Plan of Treatment Upcoming Encounters Date Type Specialty Care Team Description 07/18/2023 Office Visit Urology Wili Mckeon MD [address] [place] [address] [place] [phone] 08/06/2023 Anticoagulation Pharmacy Pharmacist1, [facility] [address] [place] [address] 08/30/2023 Cardiac Studies Cardiology [facility] [address] [facility] [address] 09/06/2023 Office Visit Cardiology Tristen Otto PA-C [address] [facility] [address] Pending Results Name Type Priority Associated Diagnoses Date /Time CULTURE, URINE, QUANTITATIVE Lab Routine Dysuria 07/12/2023 1:15 PM EDT Scheduled Orders Name Type Priority Associated Diagnoses Orde r Schedule CULTURE, URINE, QUANTITATIVE Lab Routine Dysuria Expected: 07/12/2023 (Approximate), Expires: 08/12/2024 Health Maintenance Due Date Last Done Comments Albumin/Creatinine Ratio 12/03/2019 019, 03/14/2016, 08/09/2011, Additional history exists CKD PHOS USE SMARTSET 99359 12/03/201911/22, 03/14/2016, 08/29/2012 DTaP,Tdap,and Td Vaccines (2 - Td or Tdap) 09/29/2021 09/29/2011, 09/05/1999 Depression Screening 01/23/2023 01/23/2022 COVID-19 Vaccine ( season) 2023 05/11/2022, 07/29/2021, 11/23/2020, Additional history exists CKD HGB USE SMARTSET 43321 05/23/202405/23, 05/10/2022, 11/09/2021, Additional history exists TSH [...] Not on filedocumented as of this encounter Results * (ABNORMAL) URINALYSIS, REFLEX TO MICROSCOPIC (07/12/2023 1:15 PM EDT) Color, Urine Yellow Light Yellow, Yellow, Dark Yellow 07/12/2023 1:38 PM EDT [facility]02 Clarity, Urine Clear Clear 07/12/2023 1:38 PM EDT [facility]02 Glucose, Urine Negative Negative mg/dL 07/12/2023 1:38 PM EDT [facility] [place] 56-02 Bilirubin, Urine Negative Negative 07/12/2023 1:38 PM EDT [facility] 56-02 Ketone, Urine Trace(A) Negative mg/dL 07/12/2023 1:38 PM EDT [facility]02 Specific [place], Urine 1.015 1.003 - 1.030 07/12/2023 1:38 PM EDT [facility] 56-02 Blood, Urine Negative Negative 07/12/2023 1:38 PM EDT [facility] 56 pH, Urine 5.5 5.0 - 7.5 Units 07/12/2023 1:38 PM EDT [place] [address] Protein, Urine 30(A) Negative mg/dL 07/12/2023 1:38 PM EDT [facility] 56 Urobilinogen, Urine 0.2 0.2, 1.0 mg/dL 07/12/2023 1:38 PM EDT [address] Nitrite, Urine Negative Negative 07/12/2023 1:38 PM EDT [facility] 56 Esterase, Urine Negative Negative 07/12/2023 1:38 PM EDT [facility] 56 Urine Urine specimen obtained by clean catch procedure / Unknown Non-blood Collection / Unknown 07/12/2023 1:15 PM EDT 07/12/2023 1:15 PM EDT Marily Hinkle DO LAB URINE ORDERABLE S [facility] [address] [place] [address] documented in this encounter Visit Diagnoses Diagnosis Dysuria- Primary Atherosclerotic heart disease of [place] coronary artery with other forms of angina pectoris (HCC) documented in this encounter Advance Directives Documents on File Type Date Recorded Patient Tiger Machine Operator Expl anation Advance Directives and Living Will 07/16/2017 LIVING WILL Power of Harnessmaker 07/16/2017 POWER OF A TTORNEY [facility] A Care Teams Men'S Basketball Coach Relationship Specialty Start Date End Date Jordana Hopkins DO [address] [place] [facility] [place] [address] PCP - General Family Medicine 03/05/17 documented as of this encounter"
--- OUTSIDE RECORDS SUMMARY | 2023-09-23 15:21 | External Medical Summary | Summary of Care ---
Author Name Unknown Organization [facility] Address [address] [place] [address] Phone [phone] Care Team Providers Care Sharepoint Developer Name Role Phone Jordana Hopkins DO Primary Care Provider Reason for Visit * Reason Comments eRx-Medication Refill Encounter Details Date Type Department Care Team (Late st Contact Info) Description 09/07/2023 Refill Cardiology, [facility] [address] [place] [address] Reta Subramanian PA-C [address] [place] [address] Dyslipidemia, goal LDL below 70* Allergies Active Allergy Reactions Criticality Noted Date [...] Active Rosuvastatin Calcium 5 MG Oral Tablet (Crestor)Indicati ons:Dyslipidemia, goal LDL below 70 TAKE 1 TABLET BY MOUTH EVERY DAY 90 Tablet 3 09/07/2023 Active Rosuvastatin Calcium 5 MG Oral Tablet (Crestor) TAKE 1 TABLET BY MOUTH EVERY DAY 90 Tablet 3 09/11/2022 3 Discontinued documented as of this encounter (statuses as of 09/07/2023) Active Problems Problem Noted Date Diagnosed Date Atherosclerotic heart diseas e of [place] coronary artery with other forms of angina [...] Telephone Encounter - Reta Subramanian PA-C - 09/07/2023 9:52 AM ESTSigned Prescriptions: Disp Refills Rosuvastatin Calcium 5 MG Oral Tablet (Cre*90 Tab*3 Sig: TAKE 1 TABLET BY MOUTH EVERY DAY Authorizing Provider: RETA SUBRAMANIAN * Telephone Encounter - Jonna Branham COT - 09/07/2023 9:36 AM ESTPending Prescriptions: Disp Refills Rosuvastatin Calcium 5 MG Oral Tablet (Cre*90 Tab*3 Sig: TAKE 1 TABLET BY MOUTH EVERY DAY * Telephone Encounter - Jonna Branham COT - 09/07/2023 9:36 AM EST Did you pend patient's preferred pharmacy and medication before forwarding?yes Pharmacy: [id number] [address] [address] [place] Pending Prescriptions: Disp Refills Rosuvastatin Calcium 5 MG Oral Tablet (Cr*90 Tab*3 Sig: TAKE 1 TABLET BY MOUTH EVERY DAY Last Visit: 09/06/2023 (in office), Visit date not found (telemedicine) Next Visit: 03/13/2024 If no future appointments scheduled, and last appointment is greater than a year ago, please schedule patient for a follow-up appointment Last date the medication was ordered: 09-11-2022 Is this request for a controlled substance?No [...] Description 10/08/2023 1:00 PM EST Anticoagulation Pharmacy, [facility] [address] [facility] [place] [address] Pharmacist1, [facility] [address] [facility] [address] [address] 11/07/2023 8:00 AM EST Office Visit [facility]ology [facility] [place] [address] Anand Brewster DO [address] [place] [address] 03/13/2024 2:00 PM EDT Office Visit Cardiology, [facility] [address] [place] [address] Reta Subramanian PA-C [address] [place] [address] 07/22/2024 1:45 PM EDT Office Visit Urology, [facility] [place] [address] Wili Mckeon MD 27 [facility] [address] [place] [address] Health Maintenance Due Date Last Done Comments Albumin/Creatinine Ratio 12/03/2019 019, 03/14/2016, 08/09/2011, Additional history exists CKD PHOS USE SMARTSET 94376 12/03/201911/22, 03/14/2016, 08/29/2012 DTaP,Tdap,and Td Vaccines (2 - Td or Tdap) 09/29/2021 09/29/2011, 09/05/1999 Depression Screening 01/23/2023 01/23/2022 CKD HGB USE SMARTSET 91317 05/23/202405/23, 05/10/2022, 11/09/2021, Additional history exists TSH [...] as of this encounter Visit Diagnoses Diagnosis Dyslipidemia, goal LDL below 70- Primary Other and unspecified hyperlipidemia documented in this encounter Advance Directives Documents on File Type Date Recorded Patient Medical Office Specialist Expl anation Advance Directives and Living Will 07/16/2017 LIVING WILL Power of Wood Stainer 07/16/2017 POWER OF A TTORNEY DURABLE HEALTH CARE POA Care Teams Sharepoint Developer Relationship Specialty Start Date End Date Jordana Hopkins DO [address] [place] [address] PCP - General Family Medicine 03/05/17 documented as of this encounter
--- OUTSIDE RECORDS SUMMARY | 2023-09-23 15:22 | External Medical Summary ---
Author Name Unknown Address Unknown Organization K09:[facility] [place] [address] Laboratory Report Ordering Provider Test Date Status CAMILO JANG 05/07/2023 13:18:17 Final Therapeutic ranges for non-o perative patients:
Prophylaxsis/treatment of DVT: (Range:2.0-3.0)
Treatment of pulmonary embolism:(Range:2.0-3.0)
Prevention of systemic embolism from:
-tissue heart valves
-acute myocardial infarction
-valvular heart disease
-atrial fibrillation
(Range: 2.0-3.0)
Mechanical prosthetic valves: (Range: 2.5-3.5) Observation Date Value Abnormality Reference (Units ) Status INR in Capillary blood by Coagulation assay 05/07/2023 13:18:17 1.9 (INR) Final Performing Location [facility] [place] [address]
--- OUTSIDE RECORDS SUMMARY | 2023-09-23 15:22 | External Medical Summary ---
Author Name Unknown Address Unknown Organization K09:[facility] [place] [address] Laboratory Report Ordering Provider Test Date Status MARILYNN MCDUFFIE 05/23/2023 09:59:56 Final Observation Date Value Abnormality Reference (Units ) Status WBC, Total 05/23/2023 09:59:56 8.61 4.00-10.8 0 (K/uL) Final RBC 05/23/2023 09:59:56 4.53 4.50-5.25 (M/uL) Final Hemoglobin 05/23/2023 09:59:56 14.4 14.0-16.8 (g/dL) Final HCT 05/23/2023 09:59:56 43.9 40.0-48.4 (%) Final MCV 05/23/2023 09:59:56 96.9 82.0-99.5 (fL) Final MCH 05/23/2023 09:59:56 31.8 27.0-34.0 (pg) Final MCHC 05/23/2023 09:59:56 32.8 32.0-36.0 (g/dL) Final RDW 05/23/2023 09:59:56 13.6 11.5-15.5 (%) Final Platelets 05/23/2023 09:59:56 184 140-400 (K /uL) Final MPV 05/23/2023 09:59:56 9.7 6.6-11.1 ( fL) Final Performing Location [facility] [place] [address]
--- OUTSIDE RECORDS SUMMARY | 2023-09-23 15:22 | External Medical Summary ---
Author Name Unknown Address Unknown Organization K09:[facility] [address] [place] [address] Laboratory Report Ordering Provider Test Date Status MARILYNN MCDUFFIE 05/23/2023 09:59:56 Final Observation Date Value Abnormality Reference (Units ) Status BUN 05/23/2023 09:59:56 16 6-20 (mg/dL) Final Creatinine 05/23/2023 09:59:56 1.4 Above high normal 0.6-1.2 (mg/dL) Final Glomerular filtration rate/1.73 sq M.predicted [Volume Rate/Area] in Serum, Plasma or Blood by Creatinine-based formula (CKD-EPI) 05/23/2023 09:59:56 48 Below low normal >=60 (mL/min) Final eGFR is calculated based on the CKD-EPI 2020 equation SODIUM 05/23/2023 09:59:56 142 135-146 (m mol/L) Final Potassium 05/23/2023 09:59:56 4.2 3.5-5.1 (m mol/L) Final Cl 05/23/2023 09:59:56 106 98-107 (mm ol/L) Final CO2 05/23/2023 09:59:56 26 22-32 (mmo l/L) Final Anion gap 05/23/2023 09:59:56 10 7-15 (mmol /L) Final Glucose 05/23/2023 09:59:56 93 70-120 (mg /dL) Final Albumin 05/23/2023 09:59:56 4.0 3.8-5.0 (g /dL) Final AST (Aspartate aminotransferase) 05/23/2023 09:59:56 42 10-50 (U/L) Final Alk Phos 05/23/2023 09:59:56 104 35-130 (U/ L) Final Bilirubin, Total 05/23/2023 09:59:56 0.8 <=1 .2 (mg/dL) Final Calcium 05/23/2023 09:59:56 9.3 8.4-10.2 ( mg/dL) Final Protein 05/23/2023 09:59:56 6.5 6.0-8.3 (g /dL) Final ALT (Alanine aminotransferase) 05/23/2023 09:59:56 50 10-50 (U/L) Final Performing Location [facility] [place] [address]
--- OUTSIDE RECORDS SUMMARY | 2023-09-23 15:22 | External Medical Summary ---
Author Name Unknown Address Unknown Organization K01:[facility] [place] - [facility] [address] [place] [address] Laboratory Report Ordering Provider Test Date Status AURELIO PIEDRA 04/12/2023 15:23:19 Final Observation Date Value Abnormality Reference (Units ) Status Creatinine 04/12/2023 15:23:19 1.3 Above high normal 0.6-1.2 (mg/dL) Final Glomerular filtration rate/1.73 sq M.predicted [Volume Rate/Area] in Serum, Plasma or Blood by Creatinine-based formula (CKD-EPI) 04/12/2023 15:23:19 54 Below low normal >=60 (mL/min) Final eGFR is calculated based on the CKD-EPI 2020 equation Performing Location [facility] [place] - [facility] [address] [place] [address]
--- OUTSIDE RECORDS SUMMARY | 2023-09-23 15:22 | External Medical Summary ---
Author Name Unknown Address Unknown Organization K01:[facility] [place] [address] [facility] [place] [address] Laboratory Report Ordering Provider Test Date Status MARS MCDUFFIEO 05/23/2023 09:59:56 Final Observation Date Value Abnormality Reference (Units ) Status TSH 05/23/2023 09:59:56 1.56 0.27-4.20 (uIU/mL) Final Performing Location [facility] - [address] [place] [address]
--- OUTSIDE RECORDS SUMMARY | 2023-09-23 15:22 | External Medical Summary ---
Author Name Unknown Address Unknown Organization K01:[facility] [place] [address] [place] [address] Laboratory Report Ordering Provider Test Date Status DOROTHEAAURELIO 04/12/2023 15:23:19 Final Observation Date Value Abnormality Reference (Units ) Status Levetiracetam level 04/12/2023 15:23:19 42 3-63 (ug/mL) Final Performing Location [facility] - [address] [place] [address]
--- OUTSIDE RECORDS SUMMARY | 2023-09-23 15:22 | External Medical Summary | Summary of Care ---
Author Name Unknown Organization [facility] Address [address] [place] [address] Phone [phone] Care Team Providers Care Chainstitch Elastic Attacher Name Role Phone Jordana Hopkins DO Primary Care Provider Reason for Visit * Reason Comments Outpatient Testing Encounter Details Date Type Department Care Team Description 04/12/2023 Laboratory Laboratory [facility] [place] [address] [place] [address] [facility] [address] [place] [id number] Arrived Allergies Active Allergy Reactions Severity Noted Date Comments Iodinated Contrast Media 12/15/2010 documented as of this encounter (statuses as of 04/12/2023) Medications Medication Sig Dispensed Refills Start Date [...] EVERY DAY 90 Tablet 3 09/11/2022 Active Donepezil HCl 10 MG Oral Tablet (Aricept)Indication s:Memory loss TAKE 1 TABLET BY MOUTH EVERY DAY WITH LARGEST MEAL OF THE DAY 90 Tablet 1 10/25/2022 Active Amiodarone HCl 200 MG Oral Tablet (Cordarone)Indicati ons:Nonsustained ventricular tachycardia (HCC) TAKE 1/2 TABLET BY MOUTH EVERY MORNING 45 Tablet 3 11/17/2022 Active levETIRAcetam ER 750 MG Oral Tablet Extended Release 24 Hour (Keppra XR) TAKE 2 TABLETS BY MOUTH AT BEDTIME 180 Tablet 1 11/17/2022 Active Metoprolol Succinate ER 100 MG Oral Tablet Extended Release 24 Hour (toPROL XL)Indications:HTN, goal below 140/90,Nonsustained ventricular tachycardia (HCC) TAKE 1 TABLET BY MOUTH EVERY DAY 90 Tablet 3 11/23/2022 Active levETIRAcetam ER 500 MG Oral Tablet Extended Release 24 Hour (Keppra XR) TAKE 1 TABLET BY MOUTH AT BEDTIME ALONG WITH 750MG TABLETS 90 Tablet 1 12/15/2022 Active Finasteride 5 MG Oral Tablet (Proscar)Indication [...] EVENING MEALS 180 Tablet 1 02/14/2023 Active documented as of this encounter (statuses as of 04/12/2023) Active Problems Problem Noted Date Moderate Alzheimer's [...] as of this encounter (statuses as of 04/12/2023) Resolved Problems Problem Noted Date Resolved Date [...] as of this encounter (statuses as of 04/12/2023) Immunizations Name Administration Dates Next Due COVID-19 mRNA, LNP-s, No Pre serve, 2-Dose Series (Moderna) 05/11/2022,07/29/2021,11/23/2020,10/20 H1N1 2009 Influenza, IM 02/03/2010 Pneumococcal Conjugate Vacc, 13 Valent (Prevnar) 02/05/2015 Pneumococcal Polysaccharide PPV23 (Pneumovax) 01/10/2013 Seasonal Influenza Virus Vac cine, Unspecified Formulation 07/13/2020,06/23/2019,08/09/2011,08/13,07/31/2005,08/16/2004,07/17/2003 ,07/25/2000 Seasonal Influenza, Quadriva lent Hd (Fluzone Hd) 07/07/2022,06/15/2021 Seasonal Influenza, Quadriva lent, No Preserve, 6 Mons & Above, IM 08/06/2018,06/20/2017 Seasonal Influenza, Quadriva lent, No Preserve, Adjuvanted, 65+ Yrs, IM 07/13/2020 Seasonal Influenza, Quadriva lent, No Preserve, IM [...] Encounters Date Type Specialty Care Team Description 05/07/2023 Anticoagulation Pharmacy Pharmacist2, [facility] [address] 07/18/2023 Office Visit Urology Wili Mckeon MD [address] [place] [address] [place] [phone] 08/30/2023 Cardiac Studies [facility] [address] [place] [address] 09/06/2023 Office Visit Cardiology Tristen Otto PA-C [address] [place] [address] Health Maintenance Due Date Last Done Comments Albumin/Creatinine Ratio 12/03/2019 019, 03/14/2016, 08/09/2011, Additional history exists CKD PHOS USE SMARTSET 61958 12/03/201911/22, 03/14/2016, 08/29/2012 DTaP,Tdap,and Td Vaccines (2 - Td or Tdap) 09/29/2021 09/29/2011, 09/05/1999 COVID-19 Vaccine (5 - Moderna series) 07/06/2022 05/11/2022, 07/29/2021, 11/23/2020, Additional history exists Depression Screening, Annual for Pts 12 and Over 01/23/2023 01/23/2022 CKD HGB USE SMARTSET 95250 05/10/202305/10, 11/09/2021, 05/16/2021, Additional history exists TSH 05/10/2023 05/10/2022, 10/25, 05/16/2021, Additional history exists Influenza Vaccine (FLU shot) (#1) 2023 07/07/2022, 06/15/2021, 07/13/2020, Additional history exists Pneumococcal Vaccine: 65+ Years Completed 02/05/2015, 01/10/2013, 09/09/2001 Zoster Vaccines Completed 07/08/2018, 01/22, 01/30/2018, Additional history exists GARDASIL-HPV IMMUNIZATION SERIES Aged [...] Documents on File Type Date Recorded Patient Associate Team Physician Expl anation Advance Directives and Living Will 07/16/2017 LIVING WILL Power of Supervisor Travel Information Center 07/16/2017 POWER OF A TTORNEY REPLACED BY [facility] POA Care Teams Chainstitch Elastic Attacher Relationship Specialty Start Date End Date Jordana Hopkins DO [address] [place] [address] PCP - General Family Medicine 03/05/17 documented as of this encounter
--- OUTSIDE RECORDS SUMMARY | 2023-09-23 15:22 | External Medical Summary | Summary of Care ---
Author Name Unknown Organization [facility] Address [address] [place] [address] Phone [phone] Care Team Providers Care Zigzag Appliquer Name Role Phone Jordana Hopkins DO Primary Care Provider Reason for Visit * Reason Comments eRx-Medication Refill Encounter Details Date Type Department Care Team Description 04/20/2023 Refill Neurology [facility] [place] [address] [place] [address] Tonja Rivas MD [address] [facility] [address] Memory loss Allergies Active Allergy Reactions Severity Noted Date Comments Iodinated Contrast Media 12/15/2010 documented as of this encounter (statuses as of 04/23/2023) Medications Medication Sig Dispensed Refills Start Date [...] 12/15/2022 Active Finasteride 5 MG Oral Tablet (Proscar)Indicat [...] THE DAY. 90 Tablet 1 04/23/2023 Active Donepezil HCl 10 MG Oral Tablet (Aricept)Indicat ions:Memory loss TAKE 1 TABLET BY MOUTH EVERY DAY WITH LARGEST MEAL OF THE DAY 90 Tablet 1 10/25/2022 3 Discontinued documented as of this encounter (statuses as of 04/23/2023) Active Problems Problem Noted Date Moderate Alzheimer's [...] as of this encounter (statuses as of 04/23/2023) Resolved Problems Problem Noted Date Resolved Date [...] as of this encounter (statuses as of 04/23/2023) Immunizations Name Administration Dates Next Due COVID-19 [...] encounter Miscellaneous Notes * Telephone Encounter - Homero Barron [facility] - 04/23/2023 11:45 AM EDTSigned Prescriptions: Disp Refills Donepezil HCl 10 MG Oral Tablet (Aricept) 90 Tab*1 Sig: TAKE 1 TABLET BY MOUTH EVERY DAY WITH LARGEST MEAL OF THE DAY.Authorizing Provider: TONJA RIVAS User: HOMERO BARRON * Telephone Encounter - Fidencio [facility] - 04/20/2023 12:23 PM EDTPending Prescriptions: Disp Refills Donepezil HCl 10 MG Oral Tablet [Pharmacy *90 Tab*1 Sig: TAKE 1 TABLET BY MOUTH EVERY DAY WITH LARGEST MEAL OF THE DAY * Telephone Encounter - Fidencio [facility] - 04/20/2023 12:22 PM EDT Did you pend patient's preferred pharmacy and medication before forwarding?yes Pharmacy: [id number] Pending Prescriptions: Disp Refills Donepezil HCl 10 MG Oral Tablet (Aricept)*90 Tab*1 Sig: TAKE 1 TABLET BY MOUTH EVERY DAY WITH LARGEST MEAL OF THE DAY. Last Visit: 04/12/2023 (in office), 05/06/2020 (telemedicine) Next Visit: Visit date not found If no future appointments scheduled, and last appointment is greater than a year ago, please schedule patient for a follow-up appointment Last date the medication was ordered: 10/25/2022 Is this request for a controlled substance?No Urine Drug Screen:No results found. However, due to the size of the patient record, not all encounters were searched. Please check Results Review for a complete set of results. Patient Phone Numbers Labs: Lab Results Component Value Date/Time CREAT 1.3 (H) 04/12/2023 03:23 PM CREAT 1.3 (H) 05/03/2020 01:44 PM POTASSIUM 4.3 05/10/2022 03:25 PM POTASSIUM 4.4 05/03/2020 01:44 PM POTASSIUM 4.4 11/25/1996 11:50 AM TSH 1.33 05/10/2022 03:25 PM TSH 0.90 08/09/2020 11:44 AM LDLCALC 71 05/16/2021 10:01 AM LDLCALC 69 03/14/2016 10:37 AM LDLCALC 126. 11/25/1996 11:50 AM LDLDIRECT 72 06/09/2019 01:13 PM LDLDIRECT 188 (H) 02/25/2019 04:09 PM ALT 52 (H) 05/10/2022 03:25 PM ALT 71 (H) 08/09/2020 11:44 AM documented in this encounter Plan of Treatment Upcoming Encounters Date Type Specialty Care Team Description 05/07/2023 Anticoagulation Pharmacy Pharmacist2, [facility] [address] [place] [address] 07/18/2023 Office Visit Urology Wili Mckeon MD [address] [place] [address] [place] [address] 08/30/2023 [facility] [address] [place] [address] 09/06/2023 Office Visit Cardiology Tristen Otto PA-C [address] [place] [address] Health Maintenance Due Date Last Done Comments Albumin/Creatinine Ratio 12/03/2019 019, 03/14/2016, 08/09/2011, Additional history exists CKD PHOS USE SMARTSET 71404 12/03/201911/22, 03/14/2016, 08/29/2012 DTaP,Tdap,and Td Vaccines (2 - Td or Tdap) 09/29/2021 09/29/2011, 09/05/1999 COVID-19 Vaccine (5 - Moderna series) 07/06/2022 05/11/2022, 07/29/2021, 11/23/2020, Additional history exists Depression Screening, Annual for Pts 12 and Over 01/23/2023 01/23/2022 CKD HGB USE SMARTSET 23107 05/10/202305/10, 11/09/2021, 05/16/2021, Additional history exists TSH [...] as of this encounter Visit Diagnoses Diagnosis Memory loss documented in this encounter Advance Directives Documents on File Type Date Recorded Patient Grain Broker Expl anation Advance Directives and Living Will 07/16/2017 LIVING WILL Power of Felt Hat Mellowing Machine Operator 07/16/2017 POWER OF A TTORNEY [facility] POA Care Teams Zigzag Appliquer Relationship Specialty Start Date End Date Jordana Hopkins DO [address] [place] [address] PCP - General Family Medicine 03/05/17 documented as of this encounter
--- OUTSIDE RECORDS SUMMARY | 2023-09-23 15:22 | External Medical Summary | Summary of Care ---
Author Name Unknown Organization [facility] Address [address] [place] [address] Phone [phone] Care Team Providers Care Milk Runner Name Role Phone Jordana Hopkins DO Primary Care Provider Reason for Visit * Reason Comments eRx-Medication Refill Encounter Details Date Type Department Care Team Description 05/16/2023 Telephone Neurology [facility] [place] [address] [place] [address] Tonja Rivas MD [address] [facility] [address] eRx-Medication Refill Allergies Active Allergy Reactions Severity Noted Date Comments Iodinated Contrast Media 12/15/2010 documented as of this encounter (statuses as of 05/17/2023) Medications Medication Sig Dispensed Refills Start Date [...] 180 Tablet 1 05/17/2023 Active levETIRAcetam ER 750 MG Oral Tablet Extended Release 24 Hour (Keppra XR) TAKE 2 TABLETS BY MOUTH AT BEDTIME 180 Tablet 1 11/17/2022 3 Discontinued documented as of this encounter (statuses as of 05/17/2023) Active Problems Problem Noted Date Moderate Alzheimer's [...] as of this encounter (statuses as of 05/17/2023) Resolved Problems Problem Noted Date Resolved Date [...] as of this encounter (statuses as of 05/17/2023) Immunizations Name Administration Dates Next Due COVID-19 mRNA, LNP-s, No Pre serve, 2-Dose Series (Moderna) 05/11/2022,07/29/2021,11/23/2020,10/20 H1N1 2009 Influenza, IM 02/03/2010 Pneumococcal Conjugate Vacc, 13 Valent (Prevnar) 02/05/2015 Pneumococcal Polysaccharide PPV23 (Pneumovax) 01/10/2013 Season Influenza, Quad, PF, Adjuvanted, 65+ Yrs, IM (FLUAD) 07/13/2020 Seasonal Influenza Virus Vac cine, Unspecified Formulation 07/13/2020,06/23/2019,08/09/2011,08/13,07/31/2005,08/16/2004,07/17/2003 ,07/25/2000 Seasonal Influenza, PF, 6 mo ns & Above, IM , (Flulaval) 08/06/2018,06/20/2017 Seasonal Influenza, Quadriva lent Hd (Fluzone Hd) 07/07/2022,06/15/2021 Seasonal Influenza, Quadriva lent, No Preserve, IM [...] encounter Miscellaneous Notes * Telephone Encounter - Lilo Bell [facility] - 05/17/2023 11:52 AM EDTSigned Prescriptions: Disp Refills levETIRAcetam ER 750 MG Oral Tablet Extend*180 Ta*1 Sig: TAKE 2 TABLETS BY MOUTH AT BEDTIMEAuthorizing Provider: TONJA RIVAS User: LILO BELL * Telephone Encounter - Millie Andres CPhT - 05/17/2023 8:50 AM EDTPending Prescriptions: Disp Refills levETIRAcetam ER 750 MG Oral Tablet Extend*180 Ta*1 Sig: TAKE 2 TABLETS BY MOUTH AT BEDTIME * Telephone Encounter - Millie Andres CPhT - 05/17/2023 8:47 AM EDT Did you pend patient's preferred pharmacy and medication before forwarding?yes [id number] Pending Prescriptions: Disp Refills levETIRAcetam ER 750 MG Oral Tablet Exten*180 Ta*1 Sig: TAKE 2 TABLETS BY MOUTH AT BEDTIME Last Visit: 04/12/2023 (in office), 05/06/2020 (telemedicine) Next Visit: Visit date not found If no future appointments scheduled, and last appointment is greater than a year ago, please schedule patient for a follow-up appointment Last date the medication was ordered: 11.17.22 Is this request for a controlled substance?No [...] Encounters Date Type Specialty Care Team Description 07/02/2023 Anticoagulation Pharmacy Pharmacist1, [facility] [address] [facility] [place] [address] 07/18/2023 Office Visit Urology Wili Mckeon MD [address] [place] [address] [place] [address] 08/30/2023 Cardiac Studies Cardiology [facility] [address] [place] [address] 09/06/2023 Office Visit Cardiology Tristen Otto PA-C [address] [place] [address] Health Maintenance Due Date Last Done Comments Albumin/Creatinine Ratio 12/03/2019 019, 03/14/2016, 08/09/2011, Additional history exists CKD PHOS USE SMARTSET 87115 12/03/201911/22, 03/14/2016, 08/29/2012 DTaP,Tdap,and Td Vaccines (2 - Td or Tdap) 09/29/2021 09/29/2011, 09/05/1999 COVID-19 Vaccine (5 - Moderna series) 07/06/2022 05/11/2022, 07/29/2021, 11/23/2020, Additional history exists Depression Screening, Annual for Pts 12 and Over 01/23/2023 01/23/2022 CKD HGB USE SMARTSET 09477 05/10/202305/10, 11/09/2021, 05/16/2021, Additional history exists TSH [...] Documents on File Type Date Recorded Patient Senior Medical Billing Specialist Expl anation Advance Directives and Living Will 07/16/2017 LIVING WILL Power of Hide Examiner 07/16/2017 POWER OF A TTORNEY [facility] A Care Teams Milk Runner Relationship Specialty Start Date End Date Jordana Hopkins DO [address] [place] [address] PCP - General Family Medicine 03/05/17 documented as of this encounter
--- OUTSIDE RECORDS SUMMARY | 2023-09-23 15:22 | External Medical Summary | Summary of Care ---
Author Name Unknown Organization [facility] Address [address] [place] [address] Phone [phone] Care Team Providers Care Aerial Applicator Pilot Name Role Phone Jordana Hopknis DO Primary Care Provider Reason for Visit * Reason Onset Date Comments Test Results 05/31/2023 Encounter Details Date Type Department Care Team Description 05/31/2023 Telephone Cardiology, [facility] [address] [place] [address] Tristen Otto PA-C [address] [facility] [address] Test Results Allergies Active Allergy Reactions Severity Noted Date Comments Iodinated Contrast Media 12/15/2010 documented as of this encounter (statuses as of 05/31/2023) Medications Medication Sig Dispensed Refills Start Date [...] AT BEDTIME 180 Tablet 1 05/17/2023 Active documented as of this encounter (statuses as of 05/31/2023) Active Problems Problem Noted Date Moderate Alzheimer's [...] as of this encounter (statuses as of 05/31/2023) Resolved Problems Problem Noted Date Resolved Date [...] as of this encounter (statuses as of 05/31/2023) Immunizations Name Administration Dates Next Due COVID-19 [...] encounter Miscellaneous Notes * Telephone Encounter - Svetlana Marion CMA - 05/31/2023 10:24 AM EDT Portal message sent. * Telephone Encounter - Svetlana Marion CMA - 05/31/2023 10:22 AM EDT ----- Message from Tristen Otto PA-C sent at 05/30/2023 5:05 PM EDT ----- CXR OK documented in this encounter Plan of Treatment Upcoming Encounters Date Type Specialty Care Team Description 07/02/2023 Anticoagulation Pharmacy Pharmacist1, [facility] [address] [facility] [address] 07/18/2023 Office Visit Urology Wili Mckeon MD [address] [facility] [address] [place] [address] 08/30/2023 Cardiac Studies Cardiology [place], Pacer [facility] [address] [place] [address] 09/06/2023 Office Visit Cardiology Tristen Otto PA-C [address] [place] [address] Health Maintenance Due Date Last Done Comments Albumin/Creatinine Ratio 12/03/2019 019, 03/14/2016, 08/09/2011, Additional history exists CKD PHOS USE SMARTSET 85969 12/03/201911/22, 03/14/2016, 08/29/2012 DTaP,Tdap,and Td Vaccines (2 - Td or Tdap) 09/29/2021 09/29/2011, 09/05/1999 COVID-19 Vaccine (5 - Moderna series) 07/06/2022 05/11/2022, 07/29/2021, 11/23/2020, Additional history exists Depression Screening, Annual for Pts 12 and Over 01/23/2023 01/23/2022 Influenza Vaccine (FLU shot) (#1) 2023 07/07/2022, 06/15/2021, 07/13/2020, Additional history exists CKD HGB USE SMARTSET 27140 05/23/202405/23, 05/10/2022, 11/09/2021, Additional history exists TSH [...] Documents on File Type Date Recorded Patient Hospice Educator Expl anation Advance Directives and Living Will 07/16/2017 LIVING WILL Power of Ocean Export Agent 07/16/2017 POWER OF A TTORNEY [facility] POA Care Teams Aerial Applicator Pilot Relationship Specialty Start Date End Date Jordana Hopkins DO [address] [place] [address] PCP - General Family Medicine 03/05/17 documented as of this encounter
--- OUTSIDE RECORDS SUMMARY | 2023-09-23 15:22 | External Medical Summary | Summary of Care ---
Author Name Unknown Organization [facility] Address [address] [place] [address] Phone [phone] Care Team Providers Care Net Lead Architect Name Role Phone Jordana Hopkins DO Primary Care Provider Reason for Visit * Reason Comments eRx-Medication Refill Encounter Details Date Type Department Care Team Description 05/16/2023 Telephone Neurology [facility] [place] [address] [place] [address] Tonja Rivas MD [address] [facility] [address] eRx-Medication Refill Allergies Active Allergy Reactions Severity [...] Notes * Telephone Encounter - Lilo Bell [facility] - 05/17/2023 11:52 AM EDTSigned Prescriptions: [...] pharmacy and medication before forwarding?yes [id number] Pending Prescriptions: Disp Refills levETIRAcetam [...] Anticoagulation Pharmacy Pharmacist1, [facility] [address] [facility] [place] [address] 07/18/2023 Office Visit Urology Wili Mckeon MD [address] [place] [address] [place] [address] 08/30/2023 Cardiac Studies Cardiology [facility], [facility] [address] [place] [address] 09/06/2023 Office Visit Cardiology Tristen Otto PA-C [address] [place] [address] Health Maintenance Due Date Last Done Comments Albumin/Creatinine Ratio 12/03/2019 019, 03/14/2016, 08/09/2011, Additional history exists CKD PHOS USE SMARTSET 16578 12/03/201911/22, 03/14/2016, 08/29/2012 DTaP,Tdap,and Td Vaccines (2 - Td or Tdap) 09/29/2021 09/29/2011, 09/05/1999 COVID-19 Vaccine (5 - Moderna series) 07/06/2022 05/11/2022, 07/29/2021, 11/23/2020, Additional history exists Depression Screening, Annual for Pts 12 and Over 01/23/2023 01/23/2022 CKD HGB USE SMARTSET 06869 05/10/202305/10, 11/09/2021, 05/16/2021, Additional history exists TSH [...] Documents on File Type Date Recorded Patient Superintendent Transmission Expl anation Advance Directives and Living Will 07/16/2017 LIVING WILL Power of Bindery Cutter Operator 07/16/2017 POWER OF A TTORNEY [facility] A Care Teams Net Lead Architect Relationship Specialty Start Date End Date Jordana Hopkins DO [address] [place] [address] PCP - General Family Medicine 03/05/17 documented as of this encounter
--- OUTSIDE RECORDS SUMMARY | 2023-09-23 15:22 | External Medical Summary | Summary of Care ---
Author Name Unknown Organization [facility] Address [address] [place] [address] Phone [phone] Care Team Providers Care Collision Worker Name Role Phone Jordana Hopkins DO Primary Care Provider Reason for Visit * Reason Comments Outpatient Testing Encounter Details Date Type Department Care Team Description 05/23/2023 Laboratory Laboratory [facility] [place] [address] [place] [address] [facility] [address] [facility] [address] [id number] Encounter for monitoring amiodarone therapy; Ventricular tachycardia (HCC); Dyslipidemia, goal LDL below 70; Hypothyroidism, unspecified type Allergies Active Allergy Reactions Severity Noted Date Comments Iodinated Contrast Media 12/15/2010 documented as of this encounter (statuses as of 05/23/2023) Medications Medication Sig Dispensed Refills Start Date [...] as of this encounter (statuses as of 05/23/2023) Active Problems Problem Noted Date Moderate Alzheimer's [...] as of this encounter (statuses as of 05/23/2023) Resolved Problems Problem Noted Date Resolved Date [...] as of this encounter (statuses as of 05/23/2023) Immunizations Name Administration Dates Next Due COVID-19 [...] Care Team Description 07/02/2023 Anticoagulation Pharmacy Pharmacist1, [facility] [address] [place] [address] 07/18/2023 Office Visit Urology Wili Mckeon MD [address] [place] [address] [place] [address] 08/30/2023 Cardiac Studies Cardiology [facility] [address] [facility] [place] [address] 09/06/2023 Office Visit Cardiology Tristen Otto PA-C [address] [facility] [place] [address] Pending Results Name Type Priority Associated Diagnoses Date /Time COMPREHENSIVE METABOLIC PANEL Lab Routine Encounter for monitoring amiodarone therapy Ventricular tachycardia (HCC) Dyslipidemia, goal LDL below 70 05/23/2023 9:59 AM EDT TSH Lab Routine Hypothyroidism, unspecified type Encounter for monitoring amiodarone therapy 05/23/2023 9:59 AM EDT LDL CHOLESTEROL (DIRECT MEASURE) Lab Routine Dyslipidemia, goal LDL below 70 05/23/2023 9:59 AM EDT Health Maintenance Due Date Last Done Comments Albumin/Creatinine Ratio 12/03/2019 019, 03/14/2016, 08/09/2011, Additional history exists CKD PHOS USE SMARTSET 59739 12/03/201911/22, 03/14/2016, 08/29/2012 DTaP,Tdap,and Td Vaccines (2 - Td or Tdap) 09/29/2021 09/29/2011, 09/05/1999 COVID-19 Vaccine (5 - Moderna series) 07/06/2022 05/11/2022, 07/29/2021, 11/23/2020, Additional history exists Depression Screening, Annual for Pts 12 and Over 01/23/2023 01/23/2022 CKD HGB USE SMARTSET 04760 05/10/202305/23, 05/10/2022, 11/09/2021, Additional history exists TSH 05/10/2023 05/10/2022, 10/25, [...] Procedure Name Priority Date/Time Associated Diagnosis Comments CBC Routine 05/23/2023 9:59 AM EDT Ventricular tachycardia (HCC) documented in this encounter Results * CBC (05/23/2023 9:59 AM EDT) WBC 8.61 4.00 - 10.80 K/uL 05/23/2023 10:03 AM EDT [facility]-02 RBC 4.53 4.50 - 5.25 M/uL 05/23/2023 10:03 AM EDT [facility]-02 HGB 14.4 14.0 - 16.8 g/dL 05/23/2023 10:03 AM EDT [facility] 56-02 HCT 43.9 40.0 - 48.4 % 05/23/2023 10:03 AM EDT [facility] 56 MCV 96.9 82.0 - 99.5 fL 05/23/2023 10:03 AM EDT [facility] 56- MCH 31.8 27.0 - 34.0 pg 05/23/2023 10:03 AM EDT [facility] 56- MCHC 32.8 32.0 - 36.0 g/dL 05/23/2023 10:03 AM EDT [facility] 56- RDW 13.6 11.5 - 15.5 % 05/23/2023 10:03 AM EDT [facility] 56- PLT 184 140 - 400 K/uL 05/23/2023 10:03 AM EDT [facility] 56- MPV 9.7 6.6 - 11.1 fL 05/23/2023 10:03 AM EDT [facility] 56 Blood Venous blood specimen / Unknown Venipuncture / Unknown 05/23/2023 9:59 AM EDT 05/23/2023 9:59 AM EDT Tristen Otto PA-C LAB BLOOD ORDERABLE S [facility] 56- [address] [place] [address] documented in this encounter Visit Diagnoses Diagnosis Encounter for monitoring amiodarone therapy Encounter for therapeutic drug monitoring Ventricular tachycardia (HCC) Paroxysmal ventricular tachycardia Dyslipidemia, goal LDL below 70 Other and unspecified hyperlipidemia Hypothyroidism, unspecified type documented in this encounter Advance Directives Documents on File Type Date Recorded Patient Regional Clinical Director Expl anation Advance Directives and Living Will 07/16/2017 LIVING WILL Power of Plate Slitter And Inspector 07/16/2017 POWER OF A TTORNEY DURABLE [facility] C[facility] POA Care Teams Collision Worker Relationship Specialty Start Date End Date Jordana Hopkins DO [address] [facility] [address] [address] PCP - General Family Medicine 03/05/17 documented as of this encounter
--- OUTSIDE RECORDS SUMMARY | 2023-09-23 15:22 | External Medical Summary ---
Author Name Unknown Address Unknown Organization [id number]:[facility]AT[facility] - [address] [place] [address] Laboratory Report Ordering Provider Test Date Status MARILYNN MCDUFFIE 05/23/2023 09:59:56 Final Observation Date Value Abnormality Reference (Units ) Status LDL, (direct) 05/23/2023 09:59:56 70 <=129 (mg/dL) Final LDL Cholesterol Reference Ra nges (mg/dL):
<70 Target level for high risk ASCVD patient
<100 Optimal for general population
100-129 Near optimal for general population
130-159 Borderline high
160-189 High
>=190 Very high Performing Location [facility] - [address] [place] [address]
--- OUTSIDE RECORDS SUMMARY | 2023-09-23 15:22 | External Medical Summary | Summary of Care ---
Author Name Unknown Organization [facility] Address [address] [place] [address] Phone [phone] Care Team Providers Care Bookkeeping Manager Name Role Phone Jordana Hopkins DO Primary Care Provider Encounter Details Date Type Department Care Team Description 07/02/2023 Immunization Ancillary [facility] [address] [facility] [place] [address] Sp, [facility] [address] [place] [address] Arrived Allergies Active Allergy Reactions Severity Noted [...] Care Team Description 07/02/2023 Anticoagulation Pharmacy Pharmacist1, [facility] [address] [facility] [address] Arrived 07/18/2023 Office Visit Urology Wili Mckeon MD [address] [place] [address] [place] [address] 08/30/2023 Cardiac Studies Cardiology [facility] [address] [place] [address] 09/06/2023 Office Visit Cardiology Tristen Otto PA-C [address] [place] [address] Health Maintenance Due Date Last Done Comments Albumin/Creatinine Ratio 12/03/2019 019, 03/14/2016, 08/09/2011, Additional history exists CKD PHOS USE SMARTSET 08743 12/03/201911/22, 03/14/2016, 08/29/2012 DTaP,Tdap,and Td Vaccines (2 - Td or Tdap) 09/29/2021 09/29/2011, 09/05/1999 Depression Screening 01/23/2023 01/23/2022 COVID-19 Vaccine ( season) 2023 05/11/2022, 07/29/2021, 11/23/2020, Additional history exists CKD HGB USE SMARTSET 66646 05/23/202405/23, 05/10/2022, 11/09/2021, Additional history exists TSH [...] Documents on File Type Date Recorded Patient Websphere Commerce Developer Expl anation Advance Directives and Living Will 07/16/2017 LIVING WILL Power of Men'S Basketball Coach 07/16/2017 POWER OF A TTORNEY [facility] A Care Teams Bookkeeping Manager Relationship Specialty Start Date End Date Jordana Hopkins DO [address] [place] [address] PCP - General Family Medicine 03/05/17 documented as of this encounter
--- OUTSIDE RECORDS SUMMARY | 2023-09-23 15:22 | External Medical Summary | Summary of Care ---
Author Name Unknown Organization [facility] Address [address] [place] [address] Phone [phone] Care Team Providers Care Clerical Methods Analyst Name Role Phone Jordana Hopkins DO Primary Care Provider Reason for Visit * Reason Comments eRx-Medication Refill Encounter Details Date Type Department Care Team Description 06/10/2023 Refill Neurology [facility] Erika [place] [address] [place] [address] Tonja Rivas MD [address] [facility] [address] Allergies Active Allergy Reactions Severity Noted Date Comments Iodinated Contrast Media 12/15/2010 documented as of this encounter (statuses as of 06/12/2023) Medications Medication Sig Dispensed Refills Start Date [...] 750MG TABLETS 90 Tablet 1 06/12/2023 Active levETIRAcetam ER 500 MG Oral Tablet Extended Release 24 Hour (Keppra XR) TAKE 1 TABLET BY MOUTH AT BEDTIME ALONG WITH 750MG TABLETS 90 Tablet 1 12/15/2022 3 Discontinued documented as of this encounter (statuses as of 06/12/2023) Active Problems Problem Noted Date Moderate Alzheimer's [...] as of this encounter (statuses as of 06/12/2023) Resolved Problems Problem Noted Date Resolved Date [...] as of this encounter (statuses as of 06/12/2023) Immunizations Name Administration Dates Next Due COVID-19 [...] encounter Miscellaneous Notes * Telephone Encounter - Yojana Spear [facility] - 06/12/2023 4:04 PM EDTSigned Prescriptions: Disp Refills levETIRAcetam ER 500 MG Oral Tablet Extend*90 Tab*1 Sig: TAKE 1TABLET BY MOUTH AT BEDTIME ALONG WITH 750MG TABLETSAuthorizing Provider: TONJA RIVAS User: YOJANA SPEAR Electronically signed by Yojana Spear [facility] at 06/12/2023 4:04 PM EDT * Telephone Encounter - Fidencio [facility] - 06/12/2023 12:18 PM EDTPending Prescriptions: Disp Refills levETIRAcetam ER 500 MG Oral Tablet Extend*90 Tab*1 Sig: TAKE 1 TABLET BY MOUTH AT BEDTIME ALONG WITH 750MG TABLETS * Telephone Encounter - Fidencio [facility] - 06/12/2023 12:17 PM EDT Did you pend patient's preferred pharmacy and medication before forwarding?yes Pharmacy: [id number] Pending Prescriptions: Disp Refills levETIRAcetam ER 500 MG Oral Tablet Exten*90 Tab*1 Sig: TAKE 1 TABLET BY MOUTH AT BEDTIME ALONG WITH 750MG TABLETS Last Visit: 04/12/2023 (in office), 05/06/2020 (telemedicine) Next Visit: Visit date not found If no future appointments scheduled, and last appointment is greater than a year ago, please schedule patient for a follow-up appointment Last date the medication was ordered: 12/15/2022 Is this request for a controlled substance?No [...] Date Type Specialty Care Team Description 07/02/2023 Immunization Ancillary Sp, [facility] [address] [place] [address] 07/02/2023 Anticoagulation Pharmacy Pharmacist1, [facility] [address] [place] [address] 07/18/2023 Office Visit Urology Wili Mckeon MD [address] [place] [address] [place] [address] 08/30/2023 Cardiac Studies [facility]iology [facility] [address] [place] [address] 09/06/2023 Office Visit Cardiology Tristen Otto PA-C [address] [place] [address] Health Maintenance Due Date Last Done Comments Albumin/Creatinine Ratio 12/03/2019 019, 03/14/2016, 08/09/2011, Additional history exists CKD PHOS USE SMARTSET 25896 12/03/201911/22, 03/14/2016, 08/29/2012 DTaP,Tdap,and Td Vaccines (2 - Td or Tdap) 09/29/2021 09/29/2011, 09/05/1999 COVID-19 Vaccine (5 - Moderna series) 07/06/2022 05/11/2022, 07/29/2021, 11/23/2020, Additional history exists Depression Screening 01/23/2023 01/23/2022 Influenza Vaccine (FLU shot) (#1) 2023 07/07/2022, 06/15/2021, 07/13/2020, Additional history exists CKD HGB USE SMARTSET 42942 05/23/202405/23, 05/10/2022, 11/09/2021, Additional history exists TSH [...] Documents on File Type Date Recorded 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
--- OUTSIDE RECORDS SUMMARY | 2023-09-23 15:22 | External Medical Summary ---
Author Name Unknown Address Unknown Organization K09:[facility] [place] [id number] Laboratory Report Ordering Provider Test Date Status CAMILO JANG 07/02/2023 12:57:14 Final Therapeutic ranges for non-o perative patients:
Prophylaxsis/treatment of DVT: (Range:2.0-3.0)
Treatment of pulmonary embolism:(Range:2.0-3.0)
Prevention of systemic embolism from:
-tissue heart valves
-acute myocardial infarction
-valvular heart disease
-atrial fibrillation
(Range: 2.0-3.0)
Mechanical prosthetic valves: (Range: 2.5-3.5) Observation Date Value Abnormality Reference (Units ) Status INR in Capillary blood by Coagulation assay 07/02/2023 12:57:14 2.0 (INR) Final Performing Location [facility] [place] [address]
--- OUTSIDE RECORDS SUMMARY | 2023-09-23 15:22 | External Medical Summary | Summary of Care ---
Author Name Unknown Organization [facility] Address [address] [place] [address] Phone [phone] Care Team Providers Care Pre Press Operator Name Role Phone Jordana Hopkins DO Primary Care Provider Reason for Visit * Reason Comments Return Neuro Encounter Details Date Type Department Care Team Description 04/12/2023 Office Visit Neurology [facility] Erika [place] [address] [facility] [place] [address] Tonja Rivas MD [address] [place] [address] Dementia of the Alzheimer's type, with late onset, uncomplicated (HCC)*; Seizure disorder, simple partial, 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) Allergies Active Allergy Reactions Severity Noted [...] Passive Smoke Exposure: Never Smokeless Tobacco: Never Tobacco Cessation:Counseling Given: Not Answered Alcohol Use Standard Drinks/Week Comments Yes 0 (1 standard drink = 0.6 oz pur e alcohol) Rare Sex Assigned at Date Recorded Not on file Job Start Date Occupation Industry Not on file Not on file Not on file documented as of this encounter Last Filed Vital Signs Vital Sign Reading Time Taken Comments Blood Pressure 142/88 04/12/2023 2:27 PM EDT Pulse 57 04/12/2023 2:27 PM EDT Temperature 36.6 C (97.8 F) 04/12/2023 2:27 PM ED T Respiratory Rate 22 04/12/2023 2:27 PM EDT Oxygen Saturation 93% 04/12/2023 2:27 PM EDT Inhaled Oxygen Concentration - - Weight 87.7 kg (193 lb 4.8 oz) 04/12/2023 2:27 P M EDT Height - - Body Mass Index 27.74 12/20/2021 3:58 PM EDT documented in this encounter Progress Notes * Tonja Rivas MD - 04/12/2023 4:38 PM EDT Images from the original note were not included. CLINIC NOTES Neurology [address] [address] Isabela Story : 1935 NEUROLOGY OUTPATIENT NOTE 04/12/2023 HISTORY: The patient is referred for consultation by Dr. Hopkins, who will be receiving a copy of this note.Patient comes today in follow-up of Alzheimer's disease complicated by seizure. The patient remains Keppra levels have been therapeutic. Levetiracetam 3 - 63 ug/mL 39 Resulting Agency [facility] Specimen Collected: 10/23/22 15:14 Last Resulted: 10/24/22 09:39 He is not had any seizures or staring spells. He remains on Aricept and Namenda Weight has been essentially stable. He is dependent for ADLs on his . She is now had some caregivers come in twice a week so she can get out. He does not notice any agitation there are no hallucinations no wandering. He was able to go on a cruise with his family his does not know if she beable to do that with him again in part because when he travels to his children's home his behavior at nighttime is unpredictable IE he gets disoriented did he may urinate on the floor. He requires a lot of encouragement to use his walker. He is really resistant to being physically active Past Medical History: Diagnosis Date Benign neoplasm of colon 12/2010 6 mm polyp removed; f/u scope in 5 years Chronic ischemic heart disease 01/03/2000 Angioplasty in 1999 HTN, goal to be determined Mixed dyslipidemia Sensorineural hearing loss 1984 S/P ear surgery Special screening for malignant [...] mood disturbance, or anxiety (HCC) G30.9, F02.B0 Past Surgical History: Procedure Laterality Date COLONOSCOPY THRU STOMA, W/BIOPSY 11/29/99 Normal - Dr Salmeorn COLONOSCOPY W/ BIOPSY (RECTUM) 02/27/03 normal, Dr. benton COLONOSCOPY W/ LESION REMOVAL, SNARE 01/18/11 6 mm polyp removed; f/u scope in 5 years COLONOSCOPY, DIAGNOSTIC (RECTUM) 07/08/2019 normal/[facility] CORONARY ARTERY DILATION, BALLOON 2000 REPAIR INITIAL INGUINAL HERNIA REDUCIBLE AGE 5 OR MORE 1962 SKIN CANCER EDU. 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: [employer] Tobacco Use Smoking status: Never Passive exposure: Never Smokeless tobacco: Never Vaping Use Vaping Use: Never used Substance and Sexual Activity Alcohol use: Yes Comment: Rare Drug use: No Sexual activity: Yes Partners: Female Other Topics Concern Not on file Social History Narrative 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 Social Determinants of Health Financial Resource Strain: Not on file Food Insecurity: Not on file Transportation Needs: Not on file Physical Activity: Not on file Stress: Not on file Social Connections: Not on file Intimate Partner Violence: Not on file Housing Stability: Not on file Family History Problem Relation Age of Onset Neurological Disorder Father CVA, HBP age 52 Mental Disorder Mother dementia Heart Disorder Mother post op [place] No Past Hx Son No Past Hx Son No Past Hx Son No Past Hx Daughter Current Outpatient Medications Medication Sig Dispense Refill ASPIRIN EC LOW STRENGTH TBEC 81 MG OR take one tablet daily 34 11 Cholecalciferol (VITAMIN D) 1000 UNIT Capsule nitroglycerin (NITROSTAT) 0.[address] 1 Tab under the tongue every 5 minutes as needed for Pain, Chest. Every 5 minutes x 3 for chest pain. (Patient not taking: Reported on 01/09/2023) 10 Tab 5 Warfarin Sodium 5 MG Oral Tablet (Coumadin) TAKE ONE-HALF TABLET BY MOUTH ON SUNDAY, SUNDAY AND SUNDAY AND TAKE 1 TABLET ALL OTHER DAYS 75 Tablet 3 Levothyroxine Sodium 88 MCG Oral Tablet (Levoxyl) TAKE 1 TABLET BY MOUTH ONCE DAILY FIRST THINGIN THE MORNING (AT LEAST 30 MINUTES PRIOR TO BREAKFST OR OTHER MEDS) 90 Tablet 3 Rosuvastatin Calcium 5 MG Oral Tablet (Crestor) TAKE 1 TABLET BY MOUTH EVERY DAY 90 Tablet 3 Donepezil HCl 10 MG Oral Tablet (Aricept) TAKE 1 TABLET BY MOUTH EVERY DAY WITH LARGEST MEAL OFTHE DAY 90 Tablet 1 Amiodarone HCl 200 MG Oral Tablet (Cordarone) TAKE 1/2 TABLET BY MOUTH EVERY MORNING 45 Tablet 3 levETIRAcetam ER 750 MG Oral Tablet Extended Release 24 Hour (Keppra XR) TAKE 2 TABLETS BY MOUTH AT BEDTIME 180 Tablet 1 Metoprolol Succinate ER 100 MG Oral Tablet Extended Release 24 Hour (toPROL XL) TAKE 1 TABLET BY MOUTH EVERY DAY 90 Tablet 3 levETIRAcetam ER 500 MG Oral Tablet Extended Release 24 Hour (Keppra XR) TAKE 1 TABLET BY MOUTHAT BEDTIME ALONG WITH 750MG TABLETS 90 Tablet 1 Finasteride 5 MG Oral [...] MORNING AND EVENING MEALS 180 Tablet 1 No current facility-administered medications for this visit. Review of patient's allergies indicates: Allergen Reactions Iodinated Contrast Media REVIEW OF SYSTEMS: As above PHYSICAL EXAM: BP 142/88 (BP Site: Left Arm, BP Position: Sitting, BP Cuff Size: Regular) | Pulse 57 | Temp 36.6 C (97.8 F) (Tympanic) | Resp 22 | Wt 87.7 kg (193 lb 4.8 oz) | SpO2 93% | BMI 27.74 kg/m | BSA 2.08 m Patient is awake and alert there is a paucity of spontaneous speech. He is cooperative his gait is mildly shuffling but he is not bradykinetic per se there is no facial masking no resting tremor What was the mini mental exam score? 21 What is today's date? 0 What is today's year? 0 Answered 2020 What is the month? 0 What day is today? 0 What season is it? 1 What is the name of this hospital/clinic? 1 What floor are we on? 1 What town/city are we in? 1 What county are we in? 1 What state are we in? 1 Did the patient repeat ball? 1 Did the patient repeat flag? 1 Did the patient repeat tree? 1 Was the patient response 93. 1 Was the patient response 86? 1 Was the response 79? 1 Was the response 72? 1 Was the response 65? 0 Did the patient respond D? 1 Did the patient respond L? 0 Did the patient respond R? 0 Did the patient respond O? 1 Did the patient respond W? 1 Did the patient respond ball? 0 Did the patient respond flag? 0 Did the patient respond tree? 0 Show the patient a watch and ask what it is. 1 Show the patient a pencil and ask what it is. 1 Ask the patient to repeat No ifs, ands or buts. 1 Ask pt to take a paper in their hand, fold in half and place on floor 1 Patient takes paper in hand 1 Patient folds paper in half 1 Patient [address] paper on the floor 1 Hold card "Close eyes". Ask pt. to read and do what it says 0 Give pt. paper and ask to write a sentence. 1 Show pt. drawing of intersecting pentagons. Ask pt. to draw 0 On mini-mental status testing he scores a 2130 IMPRESSION: Alzheimer's dementia with seizures continue Keppra check level continue current dosing of memantine provided creatinine supports its current dosing and Aricept provided weight is stable. Patient encouraged to use his walker at all times return in 6 months Tonja Rivas MD 04/12/2023 4:38 PMcn documented in this encounter Nursing Notes * Daphney Cool LPN - 04/12/2023 2:27 PM EDT Patient verified identity by spelling of last name and date. Return visit documented in this encounter Plan of Treatment Upcoming Encounters Date Type Specialty Care Team Description 05/07/2023 Anticoagulation Pharmacy Pharmacist2, [facility] [address] [place] [address] 07/18/2023 Office Visit Urology Wili Mckeon MD [address] [facility] [place] [address] [place] [address] 08/30/2023 Cardiac Studies [facility] [address] [place] [address] 09/06/2023 Office Visit Cardiology Tristen Otto PA-C [address] [place] [address] Pending Results Name Type Priority Associated Diagnoses Date /Time CREATININE Lab Routine Seizure disorder, simple partial, 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) 04/12/2023 3:23 PM EDT LEVETIRACETAM LEVEL Lab Routine Seizure disorder, simple partial, 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) 04/12/2023 3:23 PM EDT Health Maintenance Due Date Last Done Comments Albumin/Creatinine Ratio 12/03/2019 019, 03/14/2016, 08/09/2011, Additional history exists CKD PHOS USE SMARTSET 11479 12/03/201911/22, 03/14/2016, 08/29/2012 DTaP,Tdap,and Td Vaccines (2 - Td or Tdap) 09/29/2021 09/29/2011, 09/05/1999 COVID-19 Vaccine (5 - Moderna series) 07/06/2022 05/11/2022, 07/29/2021, 11/23/2020, Additional history exists Depression Screening, Annual for Pts 12 and Over 01/23/2023 01/23/2022 CKD HGB USE SMARTSET 35399 05/10/202305/10, 11/09/2021, 05/16/2021, Additional history exists TSH [...] as of this encounter Visit Diagnoses Diagnosis Dementia of the Alzheimer's type, with late onset, uncomplicated (HCC)- Primary Alzheimer's disease Seizure disorder, simple partial, 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
--- OUTSIDE RECORDS SUMMARY | 2023-09-23 15:22 | External Medical Summary | Summary of Care ---
Author Name Unknown Organization [facility] Address [address] [place] [address] Phone [phone] Care Team Providers Care Environmental Science Professor Name Role Phone Jordana Hopkins DO Primary Care Provider Reason for Visit * Reason Onset Date Comments Test Results 05/31/2023 Encounter Details Date Type Department Care Team Description 05/31/2023 Telephone Cardiology, [facility] [address] [place] [address] Tristen Otto PA-C [address] [facility] [place] [address] Test Results Allergies Active Allergy Reactions Severity Noted Date Comments Iodinated Contrast Media 12/15/2010 documented as of this encounter (statuses as of 06/01/2023) Medications Medication Sig Dispensed Refills Start Date [...] as of this encounter (statuses as of 06/01/2023) Active Problems Problem Noted Date Moderate Alzheimer's [...] as of this encounter (statuses as of 06/01/2023) Resolved Problems Problem Noted Date Resolved Date [...] as of this encounter (statuses as of 06/01/2023) Immunizations Name Administration Dates Next Due COVID-19 [...] Care Team Description 07/02/2023 Anticoagulation Pharmacy Pharmacist1, [facility] [address] [facility] [address] 07/18/2023 Office Visit Urology Wili Mckeon MD [address] [facility] [address] [place] [address] 08/30/2023 Cardiac Studies Cardiology [place] [address] [place] [address] 09/06/2023 Office Visit Cardiology Tristen Otto PA-C [address] [place] [address] Health Maintenance Due Date Last Done Comments Albumin/Creatinine Ratio 12/03/2019 019, 03/14/2016, 08/09/2011, Additional history exists CKD PHOS USE SMARTSET 77568 12/03/201911/22, 03/14/2016, 08/29/2012 DTaP,Tdap,and Td Vaccines (2 - Td or Tdap) 09/29/2021 09/29/2011, 09/05/1999 COVID-19 Vaccine (5 - Moderna series) 07/06/2022 05/11/2022, 07/29/2021, 11/23/2020, Additional history exists Depression Screening 01/23/2023 01/23/2022 Influenza Vaccine (FLU shot) (#1) 2023 07/07/2022, 06/15/2021, 07/13/2020, Additional history exists CKD HGB USE SMARTSET 37483 05/23/202405/23, 05/10/2022, 11/09/2021, Additional history exists TSH [...] on File Type Date Recorded Patient Websphere Consultant Expl anation Advance Directives and Living Will 07/16/2017 LIVING WILL Power of Syrup Shed Supervisor 07/16/2017 POWER OF A TTORNEY DURABLE HEALTH CARE POA Care Teams Environmental Science Professor Relationship Specialty Start Date End Date Jordana Hopkins DO [address] [place] [address] PCP - General Family Medicine 03/05/17 documented as of this encounter
--- OUTSIDE RECORDS SUMMARY | 2023-09-23 15:22 | External Medical Summary | Summary of Care ---
Author Name Unknown Organization [facility] Address [address] [place] [address] Phone [phone] Care Team Providers Care Student Development Coordinator Name Role Phone Jordana Hopkins DO Primary Care Provider Reason for Visit * Reason Comments Dosage Adjustment In Person (Anticoag Cl inic) Encounter Details Date Type Department Care Team Description 05/07/2023 Anticoagulation Pharmacy, [facility] [address] [facility] [place] [address] Pharmacist2, [facility] [address] [facility] [place] [address] History of DVT (deep vein thrombosis)* Allergies Active Allergy Reactions Severity Noted Date Comments Iodinated Contrast Media 12/15/2010 documented as of this encounter (statuses as of 05/07/2023) Medications Medication Sig Dispensed Refills Start Date [...] THE DAY. 90 Tablet 1 04/23/2023 Active documented as of this encounter (statuses as of 05/07/2023) Active Problems Problem Noted Date Moderate Alzheimer's [...] as of this encounter (statuses as of 05/07/2023) Resolved Problems Problem Noted Date Resolved Date [...] as of this encounter (statuses as of 05/07/2023) Immunizations Name Administration Dates Next Due COVID-19 [...] as of this encounter Progress Notes * Arcadio Boyd RPh - 05/07/2023 1:22 PM EDT Images from the original note were not included. Medication Therapy Disease Management - Anticoagulation Patient: Isabela Story | : 1935 Subjective Patient-Reported Symptoms: Patient Findings Negatives: Signs/symptoms of thrombosis, Signs/symptoms of bleeding, Change in health, Change in alcohol use, Change in activity, Upcoming invasive procedure, Missed doses, Extra doses, Change in medications, Change in diet/appetite, Bruising Objective Current Warfarin Dose As of 05/07/2023 Warfarin maintenance plan: 5 mg (5 mg x 1) every Mon, Wed, Fri; 2.5 mg (5 mg x 0.5) all other days INR Result As of 05/07/2023 INR goal: 2.0-3.0 INR used for dosin.9 (05/07/2023) Assessment & Plan Warfarin Plan As of 05/07/2023 Full warfarin instructions: 5 mg every Mon, Wed, Fri; 2.5 mg all other days No change documented: Arcadio Boyd joseline Next INR check: 07/02/2023 Repeat PT/INR in 8 week(s) Weekly dose: not changed Additional Dosing Information: Arcadio Boyd [facility] Clinical Pharmacist 05/07/2023, 1:22 PM documented in this encounter Plan of Treatment Upcoming Encounters Date Type Specialty Care Team Description 07/02/2023 Anticoagulation Pharmacy Pharmacist2, [facility] [address] [place] [address] 07/18/2023 Office Visit Urology Wili Mckeon MD [address] [place] [address] [place] [address] 08/30/2023 Cardiac Studies Cardiology Sergio [place] [facility] [address] [place] [address] 09/06/2023 Office Visit Cardiology rTisten Otto PA-C [address] [place] [address] Health Maintenance Due Date Last Done Comments Albumin/Creatinine Ratio 12/03/2019 019, 03/14/2016, 08/09/2011, Additional history exists CKD PHOS USE SMARTSET 54201 12/03/201911/22, 03/14/2016, 08/29/2012 DTaP,Tdap,and Td Vaccines (2 - Td or Tdap) 09/29/2021 09/29/2011, 09/05/1999 COVID-19 Vaccine (5 - Moderna series) 07/06/2022 05/11/2022, 07/29/2021, 11/23/2020, Additional history exists Depression Screening, Annual for Pts 12 and Over 01/23/2023 01/23/2022 CKD HGB USE SMARTSET 40821 05/10/202305/10, 11/09/2021, 05/16/2021, Additional history exists TSH [...] Comments INR FINGERSTICK, POINT OF CARE STAT 05/07/2023 1:18 PM EDT History of DVT (deep vein thrombosis) documented in this encounter Results * INR FINGERSTICK, POINT OF CARE (05/07/2023 1:18 PM EDT) Fingerstick INR 1.9 INR 1:19 PM EDT [facility] 56-02 Blood 05/07/2023 1:18 PM EDT 05/07/2023 1:19 PM EDT Narrative [facility] 56-02 - 05/07/2023 1:19 PM EDT Therapeutic ranges for non-operative patients: Prophylaxsis/treatment of DVT: (Range:2.0-3.0) Treatment of pulmonary embolism:(Range:2.0-3.0) Prevention of systemic embolism from: -tissue heart valves -acute myocardial infarction -valvular heart disease -atrial fibrillation (Range: 2.0-3.0) Mechanical prosthetic valves: (Range: 2.5-3.5) Arcadio Boyd [facility] LAB POINT O F CARE TEST DOCKED DEVICE UNSOLICITED RESULTS [facility] 56-02 [address] [facility] [place] [address] documented in this encounter Visit Diagnoses Diagnosis History of DVT (deep vein thrombosis)- Primary Personal history of venous thrombosis and embolism documented in this encounter Advance Directives Documents on File Type Date Recorded Patient Midlevel Provider Expl anation Advance Directives and Living Will 07/16/2017 LIVING WILL Power of Sportspersons 07/16/2017 POWER OF A TTORNEY DURABLE HEALTH CARE POA Care Teams Student Development Coordinator Relationship Specialty Start Date End Date Jordana Hopkins DO [address] [facility] [address] PCP - General Family Medicine 03/05/17 documented as of this encounter"
--- NOTE | 2023-09-23 15:59 | Emergency Department Note ---
Impression & Plan Generalized muscle weakness, Edema, Elevated troponin I level, Pulmonary edema ED Provider Note NAME: JAVIER NAVARRETE AGE: 88 SEX: M : 1935 ARRIVES VIA: Ambulance INFORMANT: Patient, the patient's significant other ED PROVIDER(S): Finesse Pickard DO CHIEF COMPLAINT: Weakness HPI: The patient is an 88-year-old male who presented to the emergency department by ambulance for an evaluation of weakness. The patient has been progressively weaker over the course the last few days. He had urinary incontinence overnight. The patient fell to the ground and was unable to stand. There is been no reported vomiting or fever. There is been no chest pain or difficulty breathing. The patient's had no worsening swelling in his legs. He does take a blood thinner. The significant other did notice some swelling and redness on the left side of the face. The patient was able to stand so the patient's significant other called the primary care physician who recommended that they come to the emergency department immediately. ROS: See above HPI for pertinent positives & negatives. A total of 10 systems reviewed and were otherwise negative. PAST MEDICAL HISTORY: See Below PAST SURGICAL HISTORY: See Below FAMILY HISTORY: See Below SOCIAL HISTORY: See Below HOME MEDICATIONS: See Below ALLERGIES: See Below VITALS: See Below PHYSICAL EXAMINATION: GENERAL: The patient is awake and alert. He does not appear to be uncomfortable EYES: The conjunctivae are clear. The pupils are round and reactive. EARS, NOSE, MOUTH AND THROAT: The nose is without any evidence of any deformity. There is mild erythema on the left cheek there is no ecchymosis or crepitus or tenderness to palpation. NECK: The neck is nontender and supple. RESPIRATORY: Diminished breath sounds noted throughout with rales in both lower lung ray. CARDIOVASCULAR: Regular rate and rhythm noted there no murmurs rubs or gallops normal S1 normal S2. GASTROINTESTINAL: The abdomen is soft. Abdomen is nontender. MUSCULOSKELETAL/EXTREMITIES: There is no evidence of gross deformity full range of motion is noted in the hips and shoulders. SKIN: Skin was warm and dry. Pedal edema was noted bilaterally NEUROLOGIC: Patient is awake and oriented to person and place. He recognizes his significant other. Strength is symmetric but diminished significantly MEDICAL DECISION MAKING: The patient is an 88-year-old male who presented to the emergency department with his family for an evaluation of generalized weakness. The patient had an episode where he could not walk. His feet "gave out from underneath" and he was able to stand or ambulate any further. The patient arrived at the emergency department. He was awake and alert but appeared to be somewhat confused about things. I discussed patient's laboratory and radiographic studies with him as well as his family members. Given his findings I discussed his condition with the on-call [facility] hospitalist. They have agreed to evaluate the patient in the emergency department for further management and disposition. At this time the patient does not appear to have an elevated troponin which could mean a cardiac event occurred which led to the patient's decline. It is unclear exactly what process started this. The patient may require further workup such as an echocardiogram to further guide care. Triage Nursing notes reviewed. Prior medical records reviewed Vital Signs: reviewed and remarkable for elevated blood pressure. Differential diagnosis: Infection, dehydration, metabolic abnormality, hypo/hyperglycemia, electrolyte disturbance, anemia, hypoxia, cardiac sources, intracerebral event, toxicologic, neurologic, as well as other pathologies. ER treatment provided: See below Diagnostics interpreted by me: ECG: EKG was obtained in the emergency department. My interpretation is dual- chamber pacemaker at 75 bpm. No [place] beats were noted. Left bundle branch block pattern was noted. There was ST elevation noted in conjunction with the pacer in the left bundle. This appears similar to a tracing from November 22, 2018. Cardiac Monitoring: An order was placed for continuous cardiac monitoring. The monitor shows a rate of 67 bpm with paced rhythm. Laboratory studies: As stated above and show below. Imaging studies: See below. Radiographic imaging was reviewed by myself Consultation(s): I discussed this case with Dr. Covarrubias [facility]. Past Med/Surg History Medical History (Updated 09/23/23 @ 19:34 by Finesse Pickard DO) BPH (benign prostatic hyperplasia) Hypothyroidism On anticoagulant therapy warfarin daily Deep vein thrombosis 2018--left arm--unknown reason--on warfarin Hearing deficit Dementia Myocardial Infarction 11/1999--follows with Dr. Coelho Non-sustained ventricular tachycardia GERD (gastroesophageal reflux disease) CKD (chronic kidney disease), stage III Sinus node dysfunction Seizure disorder last petite mal 06/2018--on keppra---follows with Dr. Meehan Dyslipidemia Symptomatic sinus bradycardia CAD (coronary artery disease) History of prior RCA interventions with chronic RCA occlusion Hypertension Surgical History History of colonoscopy History of bilateral cataract extraction History of heart artery stent 11/1999 @ [facility] [place] History of cardiac cath x1 11/1999 H/O inguinal hernia repair left H/O coronary artery balloon dilation 2000 @ [facility] [place] S/P placement of cardiac pacemaker 06/2015--meditronic Family History Other Family history non-contributory No family history of adverse response to anesthesia Social History Smoking Status: Never smoker Second Hand Exposure: Yes (father smoked cigars); Do You Dip or Chew Tobacco: No; Hx Alcohol Use: Yes Alcohol type: beer Hx Substance Use: No Preferred Language: Mongolian Communication Ability: Effective 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 Beliefs That Will Affect Care: None marital status: Current Living Situation: Spouse Feels Safe at Home: Yes Assistive Devices: Hearing Aid - Bilateral Allergies Allergies Allergy/AdvReac Type Severity Reaction Status Date / Time Iodinated Contrast Media Allergy Severe trouble Verified 09/23/23 19:00 breathing/hives Home Meds Home Medications Medication Instructions Recorded Confirmed donepezil 10 mg tablet (Aricept) 10 mg PO QDD 11/20/18 09/23/23 finasteride 5 mg tablet (Proscar) 5 mg PO QAM 11/20/18 09/23/23 levetiracetam 500 mg 500 mg PO HS 11/20/18 09/23/23 tablet,extended release 24 hr (Keppra XR) levetiracetam 750 mg 1,500 mg PO HS 11/20/18 09/23/23 tablet,extended release 24 hr (Keppra XR) levothyroxine 88 mcg tablet 88 mcg PO DAILYBB 11/20/18 09/23/23 memantine 10 mg tablet (Namenda) 10 mg PO BIDM 11/20/18 09/23/23 nitroglycerin 0.4 mg sublingual 0.4 mg sublingual UD PRN Chest Pain 11/20/18 09/23/23 tablet (Nitrostat) amiodarone 200 mg tablet 100 mg PO QAM 07/01/19 09/23/23 cholecalciferol (vitamin D3) 25 1,000 unit PO HS 07/01/19 09/23/23 mcg (1,000 unit) tablet (Vitamin D3) aspirin 81 mg tablet,delayed 81 mg PO HS 09/23/23 09/23/23 release metoprolol succinate 100 mg 100 mg PO QAM 09/23/23 09/23/23 tablet,extended release 24 hr omeprazole 20 mg capsule,delayed 20 mg PO DAILYBB 09/23/23 09/23/23 release rosuvastatin 5 mg tablet 5 mg PO DAILY 09/23/23 09/23/23 warfarin 5 mg tablet 2.5 - 5 mg PO DAILY 09/23/23 09/23/23 Results & Data (ED) Vital Signs Vital Signs - 24 hr 09/23/23 15:17 09/23/23 15:20 09/23/23 15:20 Temperature 37.0 C Temperature Source Oral Pulse Rate 72 Pulse Rate from SpO2 Sensor Pulse Rhythm Regular Pulse Strength Normal Respiratory Rate 22 Respiratory Effort / Characteristics Non-Labored Spontaneous Respiratory Depth Normal Blood Pressure 168/83 H Blood Pressure Mean 111 Blood Pressure Position Lying Pulse Oximetry 93 93 93 Oxygen Delivery Method Room Air Room Air Room Air Oxygen Flow Rate 0 Sepsis Recent Fever Within 48 Hours No Sepsis New/Unexplained Change in Mental Status Yes Sepsis Action Taken by Nursing Physician Notified 09/23/23 15:26 09/23/23 15:30 09/23/23 15:30 Temperature Temperature Source Pulse Rate 79 79 71 Pulse Rate from SpO2 Sensor 79 73 Pulse Rhythm Pulse Strength Respiratory Rate 20 24 Respiratory Effort / Characteristics Respiratory Depth Blood Pressure 168/83 H Blood Pressure Mean 111 Blood Pressure Position Pulse Oximetry 92 91 Oxygen Delivery Method Room Air Room Air Oxygen Flow Rate Sepsis Recent Fever Within 48 Hours Sepsis New/Unexplained Change in Mental Status Sepsis Action Taken by Nursing 09/23/23 15:40 09/23/23 15:50 09/23/23 16:00 Temperature Temperature Source Pulse Rate 61 60 60 Pulse Rate from SpO2 Sensor 61 60 60 Pulse Rhythm Pulse Strength Respiratory Rate 13 14 16 Respiratory Effort / Characteristics Respiratory Depth Blood Pressure Blood Pressure Mean Blood Pressure Position Pulse Oximetry 90 94 94 Oxygen Delivery Method Room Air Room Air Room Air Oxygen Flow Rate Sepsis Recent Fever Within 48 Hours Sepsis New/Unexplained Change in Mental Status Sepsis Action Taken by Nursing 09/23/23 16:10 09/23/23 16:20 09/23/23 16:30 Temperature Temperature Source Pulse Rate 66 60 61 Pulse Rate from SpO2 Sensor 66 63 61 Pulse Rhythm Pulse Strength Respiratory Rate 22 18 21 Respiratory Effort / Characteristics Respiratory Depth Blood Pressure Blood Pressure Mean Blood Pressure Position Pulse Oximetry 90 91 92 Oxygen Delivery Method Room Air Room Air Room Air Oxygen Flow Rate Sepsis Recent Fever Within 48 Hours Sepsis New/Unexplained Change in Mental Status Sepsis Action Taken by Nursing 09/23/23 16:40 Temperature Temperature Source Pulse Rate 67 Pulse Rate from SpO2 Sensor 67 Pulse Rhythm Pulse Strength Respiratory Rate 20 Respiratory Effort / Characteristics Respiratory Depth Blood Pressure Blood Pressure Mean Blood Pressure Position Pulse Oximetry 92 Oxygen Delivery Method Room Air Oxygen Flow Rate Sepsis Recent Fever Within 48 Hours Sepsis New/Unexplained Change in Mental Status Sepsis Action Taken by Longterm Medications Current Medication List: was personally reviewed by me Laboratory Data Attestation: I reviewed the patient's lab results. 09/23/23 15:30 09/23/23 15:30 Lab Results 09/23/23 09/23/23 09/23/23 Range/Units 15:30 18:00 18:13 WBC 8.07 (4.8-10.8) K/ul RBC 4.25 L (4.70-6.10) M/uL Hgb 13.1 L (14.0-18.0) g/dl Hct 40.5 L (42.0-52.0) % MCV 95.3 (80.0-100.0) fL MCH 30.8 (25.0-34.0) pg MCHC 32.3 (32.0-36.0) g/dL RDW Std Deviation 49.1 H (36.4-46.3) fL RDW Coeff of Yuly 14.0 (11.5-14.5) % Plt Count 154 (130-400) K/uL MPV 10.6 (9.4-12.4) fL Immature Gran % (Auto) 0.4 % Neut % (Auto) 70.2 % Lymph % (Auto) 12.5 % [place] % (Auto) 15.9 % Eos % (Auto) 0.4 % Baso % (Auto) 0.6 % Neut # (Auto) 5.67 (1.40-6.50) K/uL Lymph # (Auto) 1.01 L (1.20-3.40) K/uL [place] # (Auto) 1.28 H (0.11-0.59) K/uL Eos # (Auto) 0.03 (0.00-0.50) K/uL Baso # (Auto) 0.05 (0.00-0.20) K/uL Immature Gran # (Auto) 0.03 (0.01-0.20) K/uL PT 19.9 H (9.0-12.0) Seconds INR 1.9 H (0.9-1.1) APTT 34 H (21-31) Seconds PTT Ratio 1.2 VBG pH 7.39 (7.36-7.41) VBG pCO2 50 (38-50) mmHg VBG pO2 < 20 mmHg VBG HCO3 30 mmol/L VBG O2 Saturation < 60.0 % VBG Base Excess 4.2 mEq/L Sodium 141 (136-145) mmol/L Potassium 3.5 (3.5-5.1) mmol/L Chloride 106 (98-107) mmol/L Carbon Dioxide 26 (21-32) mmol/L Anion Gap 9 (3-11) BUN 26 H (6-23) mg/dl Creatinine 1.20 (0.6-1.4) mg/dl Est Cr Clr Drug Dosing 49.6 ml/min Est GFR ( Amer) 62.2 ml/min Est GFR (Non-Af Amer) 53.7 ml/min BUN/Creatinine Ratio 21.7 H (10-20) Glucose 125 H (70-99(Fasting)) mg/dl Lactate 1.3 (0.4-2.0) mmol/L Calcium 8.8 (8.6-10.3) mg/dl Magnesium 2.0 (1.7-2.4) mg/dl Total Bilirubin 1.0 (0.2-1.0) mg/dl Direct Bilirubin 0.3 H (0-0.2) mg/dl AST 23 (13-39) U/L ALT 20 (7-52) U/L Alkaline Phosphatase 74 (34-104) U/L Troponin I High Sens 54.2 H* 57.9 H* (0-20) pg/ml B-Natriuretic Peptide 1150 H (0-100) pg/ml Total Protein 7.0 (6.0-8.3) gm/dl Albumin 3.8 (3.4-5.0) gm/dl Procalcitonin < 0.05 (0-0.5) ng/ml Imaging Data Attestation: I personally reviewed and interpreted this imaging study as follows: My Impression: CT of the brain was obtained in the emergency department. My interpretation is no intracranial hemorrhage or mass effect, final report below 1 view chest x-ray was obtained in the emergency department. My interpretation is no definite infiltrate or free air, final report below. X-ray of the pelvis was obtained in the emergency department. My interpretation is no definite fracture, final report below. Radiologist's Impression: Cervical Spine CT 09/23/23 15:54 CT SCAN OF THE CERVICAL SPINE CLINICAL HISTORY: Trauma. Fall. COMPARISON STUDY: No priors. TECHNIQUE: CT scan of the cervical spine is performed from the skull base to the upper thoracic spine. Images are reviewed in the axial, sagittal, and coronal planes. IV contrast was not administered for this examination. A dose lowering technique was utilized adhering to the principles of ALARA. CT DOSE: 1170.84 mGy.cm FINDINGS: Skeletal structures: The skeletal structures are osteopenic. There is no evidence of fracture or subluxation involving the cervical spine. Vertebral body height is maintained. There is minimal anterolisthesis at C4-C5. Alignment is otherwise preserved. Anterior osteophytes are seen throughout. The odontoid process and lateral masses are intact. The atlantoaxial articulation is preserved noting productive degenerative change. There is bony fusion of the posterior elements and facets at C2-C3. The spinous processes appear intact. There is mild to moderate multilevel cervical spondylosis. Uncovertebral and facet arthropathy contribute to neural foraminal narrowing at several levels. Intervertebral discs: There is moderate disc space narrowing at C6-C7. Mild narrowing is seen at the remaining cervical levels. Central canal: A posterior disc osteophyte complex at C6-C7 may contribute to mild acquired compromise of the central canal. Soft tissues: The prevertebral and paraspinous soft tissues are within normal limits. The thyroid gland is atrophic. There is atherosclerotic calcification of the carotid bulbs. Calvarium: The visualized calvarium at the skull base appears intact. Brain parenchyma: Partially visualized brain parenchyma at the skull base is within normal limits. Sinuses and mastoids: Trace mucosal thickening is noted in the sphenoid sinuses. There is trace left mastoid effusion. The right mastoid air cells are well pneumatized. Lung apices: Clear as visualized. IMPRESSION: 1. There is no evidence of cervical spine fracture or subluxation. 2. Osteopenia and spondylotic change as above. ACT 112: Negative or not required by law. Electronically signed by: Alvin Shirley M.D. 09/23/2023 6:[address] 09/23/23 15:54 CT SCAN OF THE BRAIN WITHOUT IV CONTRAST CLINICAL HISTORY: Fall. COMPARISON STUDY: CT of the brain dated 06/26/2015. TECHNIQUE: Unenhanced axial CT scan of the brain is performed from the vertex to the skull base. A dose lowering technique was utilized adhering to the principles of ALARA. The examination is degraded by suboptimal positioning the patient in the CT gantry. FINDINGS: Brain parenchyma: There is age-related involutional change noting moderate subcortical and periventricular microangiopathic disease. There is no hemorrhage, mass effect, or evidence of acute territorial ischemia by CT criteria. Awad-white matter differentiation is preserved. 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 No extra- axial fluid collection is seen. Ventricles, sulci, cisterns: Prominent secondary to involutional change. Intracranial vasculature: There is atherosclerotic calcification of the cavernous carotid and vertebral arteries. Calvarium: The skeletal structures are osteopenic. No depressed calvarial fracture is seen. Soft tissues: There is left periorbital soft tissue contusion. Sinuses and mastoids: There is mild/moderate mucosal thickening in the right maxillary antrum and ethmoid sinuses. Mild mucosal thickening is noted in the left maxillary sinus. There is trace left mastoid effusion. The right mastoid air cells are well pneumatized. Orbits: The bony orbits are grossly intact. There are bilateral ocular lens implants. IMPRESSION: There is no hemorrhage, mass effect, or evidence of acute territorial ischemia by CT criteria. ACT 112: Negative or not required by law. Electronically signed by: Alvin Shirley M.D. 09/23/2023 6:00 PM Pelvis X-Ray 09/23/23 15:54 SINGLE VIEW PELVIS CLINICAL HISTORY: Fall. FINDINGS: AP, portable, supine pelvic radiograph is obtained. No prior studies are available for comparison at the time of dictation. The skeletal structures are osteopenic. There is no radiographic evidence of acute fracture involving the hips or bony pelvis. Moderate arthritic change and joint space narrowing seen in the hips. There is degenerative sclerosis of the sacroiliac joints. Lumbosacral spondylosis is partially imaged. There are small pelvic phleboliths. The overlying soft tissues are within normal limits. IMPRESSION: No acute bony abnormality is identified. Electronically signed by: Alvin Shirley M.D. 09/23/2023 4:34 PM Chest X-Ray 09/23/23 15:55 SINGLE VIEW CHEST CLINICAL HISTORY: Sepsis. Fall. FINDINGS: An AP, portable, upright chest radiograph is compared to study dated 11/20/2018. A 2-lead cardiac pacemaker is unchanged in position and partially obscures the left mid chest. The heart is enlarged and noting atherosclerotic calcification of the thoracic aorta. There is pulmonary vascular congestion. Chronic interstitial thickening is similar to previous. There is bibasilar scarring/atelectasis. No large pleural effusion or pneumothorax is identified. The skeletal structures are osteopenic. The bony thorax is grossly intact. Degenerative change is noted in the shoulders and spine. IMPRESSION: 1. Cardiomegaly and cardiac pacemaker with pulmonary vascular congestion. 2. No airspace consolidation or large pleural effusion is identified. ACT 112: Negative or not required by law. Electronically signed by: Alvin Shirley M.D. 09/23/2023 4:15 PM Discharge Plan Visit Data Chief Complaint: Weakness Stated Complaint: fall/weakness/AMS ED Provider: Finesse Pickard Discharge Problem: Generalized muscle weakness, Edema, Elevated troponin I level, Pulmonary edema Patient Disposition: Being Evaluated by Hospitalist Forms Stand Alone Forms: My [facility] Prescriptions Prescriptions: No Action donepezil [Aricept] 10 mg tablet 10 mg PO QDD Rx Instructions: take with largest meal of day levothyroxine 88 mcg tablet 88 mcg PO DAILYBB nitroglycerin [Nitrostat] 0.4 mg Tablet, Sublingual 0.4 mg Sublingual UD PRN (Reason: Chest Pain) Rx Instructions: EVERY 5 MIN X 3 FOR CP finasteride [Proscar] 5 mg tablet 5 mg PO QAM memantine [Namenda] 10 mg tablet 10 mg PO BIDM levetiracetam [Keppra XR] 500 mg tablet extended release 24 hr 500 mg PO HS Rx Instructions: TAKE WITH 750 MG TABS levetiracetam [Keppra XR] 750 mg tablet extended release 24 hr 1,500 mg PO HS Rx Instructions: TAKE WITH 500 MG TAB amiodarone 200 mg Tablet 100 mg PO QAM Rx Instructions: 1/2 tablet dose cholecalciferol (vitamin D3) [Vitamin D3] 1,000 unit (25 mcg) Tablet 1,000 unit PO HS omeprazole 20 mg capsule,delayed release(DR/EC) 20 mg PO DAILYBB metoprolol succinate 100 mg tablet extended release 24 hr 100 mg PO QAM rosuvastatin 5 mg tablet 5 mg PO DAILY warfarin 5 mg tablet 2.5 - 5 mg PO DAILY Rx Instructions: as directed by coumadin clinic aspirin [Aspirin Low-Strength] 81 mg Tablet,Delayed Release (Dr/Ec) 81 mg PO HS Referrals Referrals: Jordana Hopkins DO [Primary Care Provider] - Discharge Problem: Edema Qualifiers: Edema type: unspecified Qualified Code(s): R60.9 - Edema, unspecified Pulmonary edema Qualifiers: Chronicity: acute Qualified Code(s): J81.0 - Acute pulmonary edema
[2023-09-23 16:12] LABS: Basophils # (auto) 0.05 K/uL (0.00-0.20); Basophils % (auto) 0.6 %; Eosinophils # (auto) 0.03 K/uL (0.00-0.50); Eosinophils % (auto) 0.4 %; Hematocrit (blood only) 40.5 % (42.0-52.0); Hemoglobin 13.1 g/dl (14.0-18.0); Immature Granulocytes # (auto) 0.03 K/uL (0.01-0.20); Immature Granulocytes % (auto) 0.4 %; Lymphocytes # (auto) 1.01 K/uL (1.20-3.40); Lymphocytes % (auto) 12.5 %; Mean Corpuscular Hemoglobin 30.8 pg (25.0-34.0); Mean Corpuscular Hgb Conc 32.3 g/dL (32.0-36.0); Mean Corpuscular Volume 95.3 fL (80.0-100.0); Mean Platelet Volume 10.6 fL (9.4-12.4); Monocytes # (auto) 1.28 K/uL (0.11-0.59); Monocytes % (auto) 15.9 %; Neutrophils # (auto) 5.67 K/uL (1.40-6.50); Neutrophils % (auto) 70.2 %; Platelet Count 154 K/uL (130-400); RDW Standard Deviation 49.1 fL (36.4-46.3); Red Blood Count 4.25 M/uL (4.70-6.10); White Blood Count 8.07 K/ul (4.8-10.8)
--- NOTE | 2023-09-23 16:16 | XRay Report ---
SINGLE VIEW CHEST CLINICAL HISTORY: Sepsis. Fall. FINDINGS: An AP, portable, upright chest radiograph is compared to study dated 11/20/2018. A 2-lead ca rdiac pacemaker is unchanged in position and partially obscures the left mid chest. The heart is enla rged and noting atherosclerotic calcification of the thoracic aorta. There is pulmonary vascular tricia estion. Chronic interstitial thickening is similar to previous. There is bibasilar scarring/atelectas is. No large pleural effusion or pneumothorax is identified. The skeletal structures are osteopenic. The bony thorax is grossly intact. Degenerative change is noted in the shoulders and spine. IMPRESSION: 1. Cardiomegaly and cardiac pacemaker with pulmonary vascular congestion. 2. No airspace consolidation or large pleural effusion is identified. ACT 112: Negative or not required by law. Electronically signed by: Alvin Shirley M.D. 09/23/2023 4:15 PM
[2023-09-23 16:22] LABS: Albumin Level 3.8 gm/dl (3.4-5.0); BUN Creatinine Ratio 21.7 (10-20); Bilirubin Direct 0.3 mg/dl (0-0.2); Calcium 8.8 mg/dl (8.6-10.3); Creatinine Clr Calc Pharmacy 49.6 ml/min; Est GFR (African American) 62.2 ml/min; Est GFR (Non-African American) 53.7 ml/min; Potassium 3.5 mmol/L (3.5-5.1)
--- NOTE | 2023-09-23 16:36 | XRay Report ---
SINGLE VIEW PELVIS CLINICAL HISTORY: Fall. FINDINGS: AP, portable, supine pelvic radiograph is obtained. No prior studies are available for trini thomas at the time of dictation. The skeletal structures are osteopenic. There is no radiographic milton dence of acute fracture involving the hips or bony pelvis. Moderate arthritic change and joint space narrowing seen in the hips. There is degenerative sclerosis of the sacroiliac joints. Lumbosacral spo ndylosis is partially imaged. There are small pelvic phleboliths. The overlying soft tissues are with in normal limits. IMPRESSION: No acute bony abnormality is identified. Electronically signed by: Alvin Shirley M.D. 09/23/2023 4:34 PM
[2023-09-23 16:38] LABS: INR 1.9 (0.9-1.1); Partial Thromboplastin Ratio 1.2; Partial Thromboplastin Time 34 Seconds (21-31); Prothrombin Time 19.9 Seconds (9.0-12.0)
[2023-09-23 16:40] LABS: Troponin I High Sensitivity 54.2 pg/ml (0-20)
--- NOTE | 2023-09-23 18:02 | CT Scan Report ---
CT SCAN OF THE BRAIN WITHOUT IV CONTRAST CLINICAL HISTORY: Fall. COMPARISON STUDY: CT of the brain dated 06/26/2015. TECHNIQUE: Unenhanced axial CT scan of the brain is performed from the vertex to the skull base. A do se lowering technique was utilized adhering to the principles of ALARA. The examination is degraded b y suboptimal positioning the patient in the CT gantry. FINDINGS: Brain parenchyma: There is age-related involutional change noting moderate subcortical and periventri cular microangiopathic disease. There is no hemorrhage, mass effect, or evidence of acute territorial ischemia by CT criteria. Awad-white matter differentiation is preserved. 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 No extra-axial fluid collection is seen. Ventricles, sulci, cisterns: Prominent secondary to involutional change. Intracranial vasculature: There is atherosclerotic calcification of the cavernous carotid and vertebr al arteries. Calvarium: The skeletal structures are osteopenic. No depressed calvarial fracture is seen. Soft tissues: There is left periorbital soft tissue contusion. Sinuses and mastoids: There is mild/moderate mucosal thickening in the right maxillary antrum and eth moid sinuses. Mild mucosal thickening is noted in the left maxillary sinus. There is trace left masto id effusion. The right mastoid air cells are well pneumatized. Orbits: The bony orbits are grossly intact. There are bilateral ocular lens implants. IMPRESSION: There is no hemorrhage, mass effect, or evidence of acute territorial ischemia by CT tamera rushing. ACT 112: Negative or not required by law. Electronically signed by: Alvin Shirley M.D. 09/23/2023 6:00 PM
--- NOTE | 2023-09-23 18:09 | CT Scan Report ---
CT SCAN OF THE CERVICAL SPINE CLINICAL HISTORY: Trauma. Fall. COMPARISON STUDY: No priors. TECHNIQUE: CT scan of the cervical spine is performed from the skull base to the upper thoracic spine . Images are reviewed in the axial, sagittal, and coronal planes. IV contrast was not administered fo r this examination. A dose lowering technique was utilized adhering to the principles of ALARA. CT DOSE: 1170.84 mGy.cm FINDINGS: Skeletal structures: The skeletal structures are osteopenic. There is no evidence of fracture or subl uxation involving the cervical spine. Vertebral body height is maintained. There is minimal anteroli sthesis at C4-C5. Alignment is otherwise preserved. Anterior osteophytes are seen throughout. The odo ntoid process and lateral masses are intact. The atlantoaxial articulation is preserved noting produc tive degenerative change. There is bony fusion of the posterior elements and facets at C2-C3. The spi nous processes appear intact. There is mild to moderate multilevel cervical spondylosis. Uncovertebra l and facet arthropathy contribute to neural foraminal narrowing at several levels. Intervertebral discs: There is moderate disc space narrowing at C6-C7. Mild narrowing is seen at the remaining cervical levels. Central canal: A posterior disc osteophyte complex at C6-C7 may contribute to mild acquired compromis e of the central canal. Soft tissues: The prevertebral and paraspinous soft tissues are within normal limits. The thyroid gla nd is atrophic. There is atherosclerotic calcification of the carotid bulbs. Calvarium: The visualized calvarium at the skull base appears intact. Brain parenchyma: Partially visualized brain parenchyma at the skull base is within normal limits. Sinuses and mastoids: Trace mucosal thickening is noted in the sphenoid sinuses. There is trace left mastoid effusion. The right mastoid air cells are well pneumatized. Lung apices: Clear as visualized. IMPRESSION: 1. There is no evidence of cervical spine fracture or subluxation. 2. Osteopenia and spondylotic change as above. ACT 112: Negative or not required by law. Electronically signed by: Alvin Shirley M.D. 09/23/2023 6:07 PM
[2023-09-23 18:21] LABS: Base Excess VBG 4.2 mEq/L; HCO3 VBG 30 mmol/L; Oxygen Saturation VBG < 60.0 %; PCO2 VBG 50 mmHg (38-50); PO2 VBG < 20 mmHg; pH VBG 7.39 (7.36-7.41)
--- NOTE | 2023-09-23 20:54 | History & Physical Report ---
Date of Service September 23, 2023 Assessment & Plan (1) Generalized muscle weakness: (2) Pulmonary edema: (3) Elevated troponin I level: (4) CHF (congestive heart failure): (5) UTI (urinary tract infection): (6) Hematuria: (7) Alzheimer's dementia: (8) Seizure disorder: Plan Pt is an 88yoM with PMhx significant for SSS s/p pacemaker placement, Hx of Alzheimer's Dementia, Seizure disorder, CKD admitted after being brought in family with concern for generalized weakness. Generalized Weakness UTI CHF Elevated trop Cardiac pacemaker in situ Per , pt could not walk or stand with his walker today, fell at home notes new episode of urinary incontinence at home UA grossly bloody, some concern for infection, urine Cx pending, empiric Rocephin ordered Biofire ordered and pending EKG per ED reports with LBBB (not yet scanned) hs-Trops elevated at 54.2 to 57.9, repeat pending BNP elevated at 1150, echo ordered and pending Chest xray noting cardiomegaly with pacemaker and pulmonary vascular congestion Has pacemaker- consider interrogation, cardiology consult Head CT with no acute findings PT/OT CHF Per , no known dx Follows with Dr Coelho from [facility] Card[facility] BNP elevated at 1150 and echo ordered and pending Chest xray noting cardiomegaly with pacemaker and pulmonary vascular congestion Echo ordered and pending Last echo in [facility] in 2020 noted EF 55%, Grade II diastolic dysfunction Cardiology consult, appreciate recs Hematuria Per family, pt's urine grossly bloody, very concerned Also had episode of urinary incontinence at home UA confirming presence of blood and blood noted on exam in pt's genital area On warfarin, though INR 1.9 will hold in this setting of gross blood Urology consult- appreciate recs Fall Per , pt could not walk or stand with his walker today, fell at home Head CT with no acute findings, pt on coumadin at home cervical spine CT and pelvis xray with no acute findings after the fall XRAY of toe ordered as 5th digit of left foot now red and swollen Alzheimer's Dementia Agitation Per family pt Pt AAO x1 Continue home aricept and namenda Continue other home meds as tolerated and ordered CODE STATUS: Per , pt's stated wishes were DNR/DNI DVT prophylaxis: On warfarin currently on hold with hematuria Diet: Dispo: Med/Surg with tele History of Present Illness Chief Complaint: Weakness Primary Care Provider: Jordana Hopkins, Pt is an 88yoM with PMhx significant for SSS s/p pacemaker placement, Hx of Alzheimer's Dementia, Seizure disorder, CKD admitted after being brought in family with concern for generalized weakness. Pt's and daughter at bedside. states that he typically uses a walker at home but could not walk/stand today. Was also incontinent in bed today which is new for him. States that he fell out of bed as well. Daughter notes that it looked like his feet were purple at one time and that there is now some redness and swelling to the 5th digit of the left foot. Pt is AAOx1 which they state is his baseline. They note Hx of Alzheimer's dementia and that he also sundowns. They state that he follows with cardiology after a Hx of stent placements in the past many years ago, Dr Coelho. pt also has a pacemaker. states that he has not been eating and drinking and has not been taking his medications. So she is very concerned about that as well. Allergies Allergy/AdvReac Type Severity Reaction Status Date / Time Iodinated Contrast Media Allergy Severe trouble Verified 09/23/23 19:00 breathing/hives Home Medications Medication Instructions Recorded Confirmed Type donepezil 10 mg tablet (Aricept) 10 mg PO QDD 11/20/18 09/23/23 History finasteride 5 mg tablet (Proscar) 5 mg PO QAM 11/20/18 09/23/23 History levetiracetam 500 mg 500 mg PO HS 11/20/18 09/23/23 History tablet,extended release 24 hr (Keppra XR) levetiracetam 750 mg 1,500 mg PO HS 11/20/18 09/23/23 History tablet,extended release 24 hr (Keppra XR) levothyroxine 88 mcg tablet 88 mcg PO DAILYBB 11/20/18 09/23/23 History memantine 10 mg tablet (Namenda) 10 mg PO BIDM 11/20/18 09/23/23 History nitroglycerin 0.4 mg sublingual 0.4 mg sublingual UD PRN Chest Pain 11/20/18 09/23/23 History tablet (Nitrostat) amiodarone 200 mg tablet 100 mg PO QAM 07/01/19 09/23/23 History cholecalciferol (vitamin D3) 25 1,000 unit PO HS 07/01/19 09/23/23 History mcg (1,000 unit) tablet (Vitamin D3) aspirin 81 mg tablet,delayed 81 mg PO HS 09/23/23 09/23/23 History release metoprolol succinate 100 mg 100 mg PO QAM 09/23/23 09/23/23 History tablet,extended release 24 hr omeprazole 20 mg capsule,delayed 20 mg PO DAILYBB 09/23/23 09/23/23 History release rosuvastatin 5 mg tablet 5 mg PO DAILY 09/23/23 09/23/23 History warfarin 5 mg tablet 2.5 - 5 mg PO DAILY 09/23/23 09/23/23 History Past Med/Surg History Medical History (Updated 09/23/23 @ 23:47 by Michelle Covarrubias MD) BPH (benign prostatic hyperplasia) Hypothyroidism On anticoagulant therapy warfarin daily Deep vein thrombosis 2018--left arm--unknown reason--on warfarin Hearing deficit Dementia Myocardial Infarction 11/1999--follows with Dr. Coelho Non-sustained ventricular tachycardia GERD (gastroesophageal reflux disease) CKD (chronic kidney disease), stage III Sinus node dysfunction Seizure disorder last petite mal 06/2018--on keppra---follows with Dr. Meehan Dyslipidemia Symptomatic sinus bradycardia CAD (coronary artery disease) History of prior RCA interventions with chronic RCA occlusion Hypertension Surgical History History of colonoscopy History of bilateral cataract extraction History of heart artery stent 11/1999 @ [facility] [place] History of cardiac cath x1 11/1999 H/O inguinal hernia repair left H/O coronary artery balloon dilation 2000 @ [facility] S/P placement of cardiac pacemaker 06/2015--meditronic Family History Other Family history non-contributory No family history of adverse response to anesthesia Social History Smoking Status: Never smoker Second Hand Exposure: Yes (father smoked cigars); Do You Dip or Chew Tobacco: No; Hx Alcohol Use: Yes Alcohol type: beer Hx Substance Use: No Preferred Language: Kenyan Communication Ability: Effective Bulk Clerk Required: No Beliefs That Will Affect Care: None marital status: Current Living Situation: Spouse Feels Safe at Home: Yes Assistive Devices: Hearing Aid - Bilateral Review of Systems Review of Systems: Unobtainable due to cognitive status Physical Exam Physical Exam: General: Alert, orientedx1. No acute distress laying in bed. Skin: daryl blood noted on skin in genital area Psych: could not be determined Neuro: No gross deficits while laying in bed HEENT: NC/AT CV: RRR Resp: Breath sounds clear bilaterally, no increased effort of breathing. Abdomen: Soft, nontender Extremities: No edema in lower extremities bilaterally, 5th digit of left foot red and swollen Results & Data Results & Data Vital Signs (Past 12 Hours) Vital Signs Temp Pulse Resp BP Pulse Ox O2 Del Method O2 Flow Rate 09/23/23 19:30 84 09/23/23 16:40 67 20 92 Room Air 09/23/23 16:30 61 21 92 Room Air 09/23/23 16:20 60 18 91 Room Air 09/23/23 16:10 66 22 90 Room Air 09/23/23 16:00 60 16 94 Room Air 09/23/23 15:50 60 14 94 Room Air 09/23/23 15:40 61 13 90 Room Air 09/23/23 15:30 71 24 91 Room Air 09/23/23 15:30 79 09/23/23 15:26 79 20 168/83 H 92 Room Air 09/23/23 15:20 93 Room Air 09/23/23 15:20 93 Room Air 0 09/23/23 15:17 37.0 C 72 22 168/83 H 93 Room Air (2) Pulmonary edema Chronicity: acute Qualified Code(s): J81.0 - Acute pulmonary edema
[2023-09-23 21:18] LABS: Appearance Urine Cloudy (Clear); Bacteria Urine Automated Negative (Negative); Blood Urine 3+ (Negative); Color Urine Dark Yellow; Epithelial Cell Urine Auto >30 /lpf (0-5); Glucose Urine UA Negative (Negative); Ketones Urine Trace (Negative); Leukocyte Esterase Urine Trace (Negative); Nitrite Urine Negative (Negative); Protein Urine 2+ (Negative); RBC Urine Automated >30 /hpf (0-4); Specific Gravity Urine 1.029 (1.000-1.030); Urobilinogen Urine Negative (Negative); pH Urine 5.5 (4.5-7.5)
[2023-09-23 21:26] LABS: Bilirubin Urine 1+ (Negative)
[2023-09-24] MEDS ORDERED: NITROGLYCERIN SL 0.4 MG/TAB TAB SL PRN (00:59)
[2023-09-24 01:44] LABS: Adenovirus PCR Not Detected (NotDetected); Bordetella parapertussis PCR Not Detected (NotDetected); Bordetella pertussis PCR Not Detected (NotDetected); Chlamydia pneumoniae PCR Not Detected (NotDetected); Coronavirus 229E PCR Not Detected (NotDetected); Coronavirus HKU1 PCR Not Detected (NotDetected); Coronavirus NL63 PCR Not Detected (NotDetected); Coronavirus OC43PCR Not Detected (NotDetected); Human Metapneumovirus PCR Not Detected (NotDetected); Influenza A PCR Not Detected (NotDetected); Influenza B PCR Not Detected (NotDetected); Mycoplasma pneumoniae PCR Not Detected (NotDetected); Parainfluenza Virus 1 PCR Not Detected (NotDetected); Parainfluenza Virus 2 PCR Not Detected (NotDetected); Parainfluenza Virus 3 PCR Not Detected (NotDetected); Parainfluenza Virus 4 PCR Not Detected (NotDetected); Respiratory Syncytial VirusPCR Not Detected (NotDetected); Rhinovirus/Enterovirus PCR Not Detected (NotDetected)
[2023-09-24 01:56] LABS: Coronavirus CoV-2 (COVID19)PCR DETECTED (NotDetected)
[2023-09-24] MEDS: cefTRIAXone SODIUM 2,000 MG in DEXTROSE 5 % MINI-B 50 ML IV SCH (02:17)
--- NOTE | 2023-09-24 05:41 | Urology Consultation ---
Date of Consultation September 24, 2023 Assessment & Plan (1) Hematuria: The patient has been admitted on the hospitalist service. From a urologic perspective we recommend proceeding as follows: Because of patient's hematuria may be related to an underlying urinary tract infection with concomitant use of anticoagulants as he does take Coumadin Would recommend holding Coumadin if clinically able Patient has been started on antibiotics in form of Rocephin secondary to urinary tract infection. Blood cultures have been sent and are pending. A urine culture has also been ordered and is pending. Antibiotics to be tailored based on these results Serial bladder scans can be followed and if patient begins retaining urine a Bernard catheter can be placed for maximal urinary drainage Further evaluation of patient's hematuria can be pursued on an outpatient based on the patient/family wishes (2) UTI (urinary tract infection): Supervising Physician Co-Signing Physician Notes Discussed patient with EULALIA. Agree with plan except with the following changes: 1. Ok to continue anticoagulation 2. Recommend bladder scans to ensure emptying. If greater than 300cc, recommend bernard placement with 18 or 20Fr catheter. 3. If patient not clinically improving, recommend CT scan of abdomen and pelvis Urology to sign off, message sent for f/u to discuss hematuria History of Present Illness Reason for Consultation: Hematuria Attending Physician: Meg Small, DO History of Present Illness This is a 88-year-old male who was admitted to the hospital as he was brought to his family due to concern for generalized weakness. Patient has an underlying history of dementia and cannot provide much in the way of history. The history was obtained with discussion from staff attending to the patient the emergency department as well as review of chart. According to staff the patient's family noted that patient typically uses a walker but he was having a great deal of difficulty walking and standing earlier today. They also noted that he was incontinent of urine which was a new finding for him. I had further discussion with the nurse attending to the patient in the emergency department and they noted that the patient was incontinent of urine. There is concern that patient had hematuria as the urine appeared somewhat orange/red. There were no clots noted. I did attempt to question the patient and he indicated that he was comfortable at the present time. He could not provide any further details regarding his hematuria and did not express any abdominal pain or suprapubic discomfort at this time. Labs available thus far include a CBC her white blood cell count and platelet count are normal. The patient's hemoglobin and hematocrit are 13.1 and 40.5. His INR is noted to be 1.9. Chemistry profile showed sodium is 1 normal as is his potassium. The patient's creatinine is also normal. Lactic acid level was checked and was nonelevated. Urinalysis was performed that showed cloudy urine. The specimen was negative for nitrites but did have trace leukocyte Estrace and 5-10 white blood cells per high-power field. There is no bacteria noted on the study. A bio fire study was performed and patient was noted to be positive for COVID. At the time my interview he was resting comfortably in bed and he was in no distress. Allergies Allergy/AdvReac Type Severity Reaction Status Date / Time Iodinated Contrast Media Allergy Severe trouble Verified 09/23/23 19:00 breathing/hives Home Medications Medication Instructions Recorded Confirmed Type donepezil 10 mg tablet (Aricept) 10 mg PO QDD 11/20/18 09/23/23 History finasteride 5 mg tablet (Proscar) 5 mg PO QAM 11/20/18 09/23/23 History levetiracetam 500 mg 500 mg PO HS 11/20/18 09/23/23 History tablet,extended release 24 hr (Keppra XR) levetiracetam 750 mg 1,500 mg PO HS 11/20/18 09/23/23 History tablet,extended release 24 hr (Keppra XR) levothyroxine 88 mcg tablet 88 mcg PO DAILYBB 11/20/18 09/23/23 History memantine 10 mg tablet (Namenda) 10 mg PO BIDM 11/20/18 09/23/23 History nitroglycerin 0.4 mg sublingual 0.4 mg sublingual UD PRN Chest Pain 11/20/18 09/23/23 History tablet (Nitrostat) amiodarone 200 mg tablet 100 mg PO QAM 07/01/19 09/23/23 History cholecalciferol (vitamin D3) 25 1,000 unit PO HS 07/01/19 09/23/23 History mcg (1,000 unit) tablet (Vitamin D3) aspirin 81 mg tablet,delayed 81 mg PO HS 09/23/23 09/23/23 History release metoprolol succinate 100 mg 100 mg PO QAM 09/23/23 09/23/23 History tablet,extended release 24 hr omeprazole 20 mg capsule,delayed 20 mg PO DAILYBB 09/23/23 09/23/23 History release rosuvastatin 5 mg tablet 5 mg PO DAILY 09/23/23 09/23/23 History warfarin 5 mg tablet 2.5 - 5 mg PO DAILY 09/23/23 09/23/23 History Patient History Medical History BPH (benign prostatic hyperplasia) Hypothyroidism On anticoagulant therapy warfarin daily Deep vein thrombosis 2018--left arm--unknown reason--on warfarin Hearing deficit Dementia Myocardial Infarction 11/1999--follows with Dr. Coelho Non-sustained ventricular tachycardia GERD (gastroesophageal reflux disease) CKD (chronic kidney disease), stage III Sinus node dysfunction Seizure disorder last petite mal 06/2018--on keppra---follows with Dr. Meehan Dyslipidemia Symptomatic sinus bradycardia CAD (coronary artery disease) History of prior RCA interventions with chronic RCA occlusion Hypertension Surgical History History of colonoscopy History of bilateral cataract extraction History of heart artery stent 11/1999 @ [facility] History of cardiac cath x1 11/1999 H/O inguinal hernia repair left H/O coronary artery balloon dilation 2000 @ [facility] S/P placement of cardiac pacemaker 06/2015--meditronic Family History Other Family history non-contributory No family history of adverse response to anesthesia Social History Smoking Status: Never smoker Second Hand Exposure: Yes (father smoked cigars); Do You Dip or Chew Tobacco: No; Hx Alcohol Use: Yes Alcohol type: beer Hx Substance Use: No Preferred Language: Moroccan Communication Ability: Effective Range Mechanic Required: No Beliefs That Will Affect Care: None marital status: Current Living Situation: Spouse Feels Safe at Home: Yes Assistive Devices: Hearing Aid - Bilateral Review of Systems Review of Systems: Unobtainable due to cognitive status Physical Exam Constitutional: WD/WN, vitals as above Eyes: no conjunctival abnormality ENMT: Ears: no hearing impairment Neck: trachea midline Respiratory: normal respiratory effort; no respiratory distress and no labored breathing Cardiovascular: Rate/Rhythm: regular rate and regular rhythm Gastrointestinal (Abdomen): Soft, nondistended, and nontender to palpation Musculoskeletal: No calf tenderness Skin: no rashes Neurologic: moves all extremities Results & Data Vital Signs (Past 12 Hours) Vital Signs Pulse Resp BP Pulse Ox O2 Del Method 09/24/23 01:51 76 09/24/23 00:30 60 23 92 Room Air 09/24/23 00:20 62 21 93 Room Air 09/24/23 00:10 60 25 H 91 Room Air 09/24/23 00:00 61 15 92 Room Air 09/23/23 23:50 68 19 93 Room Air 09/23/23 23:40 77 18 92 Room Air 09/23/23 23:30 76 21 94 Room Air 09/23/23 23:29 67 09/23/23 23:20 61 17 93 Room Air 09/23/23 23:10 60 22 94 Room Air 09/23/23 23:00 60 15 92 Room Air 09/23/23 22:50 60 21 94 Room Air 09/23/23 22:40 60 18 95 Room Air 09/23/23 22:30 63 18 91 Room Air 09/23/23 22:20 65 21 92 Room Air 09/23/23 22:16 85 13 09/23/23 22:00 60 12 162/93 H 90 Room Air 09/23/23 21:50 62 9 L 94 09/23/23 21:40 60 12 93 Room Air 09/23/23 21:30 61 14 96 Room Air 09/23/23 21:20 62 23 95 Room Air 09/23/23 21:13 85 24 159/84 H 92 Room Air 09/23/23 21:10 95 H 24 95 Room Air 09/23/23 21:00 69 25 H 09/23/23 20:50 95 Room Air 09/23/23 20:40 60 91 Room Air 09/23/23 20:30 64 95 Room Air 09/23/23 20:20 92 Room Air 09/23/23 20:10 93 Room Air 09/23/23 20:00 94 Room Air 09/23/23 19:50 94 Room Air 09/23/23 19:40 95 Room Air 09/23/23 19:30 93 Room Air 09/23/23 19:30 84 09/23/23 19:20 18 93 Room Air 09/23/23 19:10 61 18 95 Room Air 09/23/23 19:00 63 11 L 162/87 H 93 Room Air 09/23/23 18:50 76 17 92 Room Air 09/23/23 18:40 60 19 94 Room Air 09/23/23 18:30 61 16 95 Room Air 09/23/23 18:21 60 15 180/91 H 95 Room Air 09/23/23 18:20 60 17 93 Room Air 09/23/23 18:10 61 16 95 Room Air 09/23/23 18:00 60 20 94 Room Air 09/23/23 17:50 63 14 PG Care Time/CCT Total # of Minutes Spent Total Time Spent with Patient: Total time spent is greater than 50% in coordination of care (as documented) at patient's floor/unit and/or counseling patient: Coding Level of Care Code 08767 INT INP/OBS CARE 3/75MIN Diagnoses Hematuria R31.9 UTI (urinary tract infection) N39.0
[2023-09-24] MEDS: LEVOTHYROXINE SODIUM 88 MCG TABLET PO SCH (08:18)
[2023-09-24] MEDS: FINASTERIDE 5 MG TAB PO SCH (08:18)
[2023-09-24] MEDS: MEMANTINE HCL 10 MG TAB PO SCH ×2 (08:18→18:32)
[2023-09-24] MEDS: ROSUVASTATIN CALCIUM 5 MG TAB PO SCH (08:18)
[2023-09-24] MEDS: METOPROLOL SUCC 50MG EXT REL TAB PO SCH (08:18)
[2023-09-24] MEDS: AMIODARONE 200 MG TAB PO SCH (08:18)
[2023-09-24] MEDS: PANTOprazole 40 MG TAB PO SCH (08:18)
[2023-09-24] MEDS ORDERED: hydrALAZINE HCL 20 MG/ML VIAL IV STA (08:51)
[2023-09-24 08:55] LABS: Hematocrit (blood only) 37.9 % (42.0-52.0); Hemoglobin 12.7 g/dl (14.0-18.0); Mean Corpuscular Hemoglobin 31.1 pg (25.0-34.0); Mean Corpuscular Hgb Conc 33.5 g/dL (32.0-36.0); Mean Corpuscular Volume 92.9 fL (80.0-100.0); Mean Platelet Volume 10.5 fL (9.4-12.4); Platelet Count 143 K/uL (130-400); RDW Coefficient of Variation 13.9 % (11.5-14.5); RDW Standard Deviation 47.8 fL (36.4-46.3); Red Blood Count 4.08 M/uL (4.70-6.10); White Blood Count 8.38 K/ul (4.8-10.8)
[2023-09-24 09:12] LABS: BUN Creatinine Ratio 19.8 (10-20); Calcium 8.4 mg/dl (8.6-10.3); Creatinine Clr Calc Pharmacy 51.3 ml/min; Est GFR (African American) 64.8 ml/min; Est GFR (Non-African American) 55.9 ml/min; Magnesium 2.1 mg/dl (1.7-2.4); Phosphorus 2.5 mg/dl (2.5-4.9); Potassium 3.4 mmol/L (3.5-5.1)
--- NOTE | 2023-09-24 09:18 | XRay Report ---
XR toe(s) LT min 2V CLINICAL HISTORY: red swollen after a fall, 5th digit COMPARISON: None FINDINGS: Alignment of the left fifth toe is anatomic. There is no acute fracture. No osseous lesion s are identified. There is left fifth toe soft tissue swelling. IMPRESSION: No fracture or dislocation within the left fifth toe. ACT 112: Negative or not required by law. Electronically signed by: Tavon Momin M.D. 09/24/2023 9:17 AM
[2023-09-24 09:33] LABS: INR 1.6 (0.9-1.1); Prothrombin Time 17.4 Seconds (9.0-12.0)
--- NOTE | 2023-09-24 10:13 | Hospitalist Progress Note ---
Date of Service September 24, 2023 Assessment & Plan (1) Generalized muscle weakness: (2) COVID: (3) Alzheimer's dementia: (4) Elevated troponin I level: (5) CHF (congestive heart failure): (6) UTI (urinary tract infection): (7) Hematuria: Plan Pt is an 88yoM with PMhx significant for SSS s/p pacemaker placement, Hx of Alzheimer's Dementia, Seizure disorder, CKD admitted after being brought in family with concern for generalized weakness. Generalized Weakness 2/2 COVID 19 infection Acute metabolic encephalopathy Alzheimer's Dementia Agitation and known h/o sundowning Per , pt could not walk or stand with his walker, fell at home CELLULOID TRIMMER notes new episode of urinary incontinence at home UTI possible with gross hematuria and incontinence. Pat is confused so he cannot report symptoms. Cont empiric Rocephin for the time being. hs-Trops elevated at 54.2 to 57.9, with flat trend, no rise. EKG with paced rhythm and no nonverbal communication or S/Sx of ACS--elev trop is more likely demand ischemia in setting of covid infection. No pneumonia on CXR and no hypoxia is present. BNP elevated at 1150, echo ordered and pending Head CT with no acute findings PT/OT evaluations when able. Cont supportive care efforts. Continue home aricept and namenda CHF elevated troponin cardiac pacemaker in place Follows with Dr Coelho from [facility] Cardiology BNP elevated at 1150 and echo ordered Chest xray noting cardiomegaly with pacemaker and pulmonary vascular congestion Echo ordered and pending Last echo in [facility] in 2020 noted EF 55%, Grade II diastolic dysfunction Cardiology saw him and gave lasix 20mg IV once, will follow progress clinically daily weight, low sodium diet Gross Hematuria Per family, pt's urine grossly bloody, very concerned Also had episode of urinary incontinence at home UA confirming presence of blood and blood noted on exam in pt's genital area On warfarin, though INR 1.9 will hold in this now Cont bladder scans per urology to ensure not retaining. Cont empiric Rocephin in case of infection. CODE STATUS: DNR/DNI DVT prophylaxis: On warfarin currently on hold with hematuria Diet: Dispo: Med/Surg with tele I spent a total [id number] coordinating, documenting, and providing care for this patient excluding time spent in the performance of separately billed services Meg Small DO [facility] Hospitalist Admission and Anticipated Discharge Date Admission Date: September 23, 2023 Subjective 88-year-old man presents for progressive weakness and a fall. Found to have COVID-19 infection. The patient was and confused on arrival and is currently confused and not answering questions with me this morning. No family is present at the bedside. Urinalysis was grossly bloody with some concern for infection. Empiric Rocephin was ordered. Urology was consulted given gross hematuria. Serial bladder scans have been ordered to ensure no urinary retention. He is somnolent and unable to participate in history. Blood pressure is up to 180/99. He is not on antihypertensives typically Physical Exam Physical Exam: CONSTITUTIONAL: WNWD, vitals as above, generally somnolent and not in distress EYES: pupils are round and equal bilaterally, normal conjunctivae, no scleral icterus ENT: external ear and nose normal NECK: trachea midline RESPIRATORY: clear to auscultation bilaterally, no crackles, rales or wheezes, normal respiratory effort CARDIOVASCULAR: regular rate and rhythm, S1 and 2 heard without murmurs, gallops or rubs, no JVD, no peripheral edema CHEST: inspection of chest was normal GASTROINTESTINAL: soft, nontender, no hepatomegaly, no guarding MUSCULOSKELETAL: confused and somnolent, unable to perform exam SKIN: warm and dry NEUROLOGIC: confused, nonverbal and not cooperative with interaction or exam. PSYCHIATRIC: somnolent. Results & Data Results & Data Vital Signs (Past 12 Hours) Vital Signs Pulse Pulse Resp BP Pulse Ox O2 Del Method 09/24/23 09:57 62 18 173/91 H 97 Room Air 09/24/23 08:31 75 18 180/99 H 92 Room Air 09/24/23 07:17 62 09/24/23 01:51 76 09/24/23 00:30 60 23 92 Room Air 09/24/23 00:20 62 21 93 Room Air 09/24/23 00:10 60 25 H 91 Room Air 09/24/23 00:00 61 15 92 Room Air 09/23/23 23:50 68 19 93 Room Air 09/23/23 23:40 77 18 92 Room Air 09/23/23 23:30 76 21 94 Room Air 09/23/23 23:29 67 09/23/23 23:20 61 17 93 Room Air 09/23/23 23:10 60 22 94 Room Air 09/23/23 23:00 60 15 92 Room Air 09/23/23 22:50 60 21 94 Room Air 09/23/23 22:40 60 18 95 Room Air 09/23/23 22:30 63 18 91 Room Air 09/23/23 22:20 65 21 92 Room Air 09/23/23 22:16 85 13 Laboratory Results Short CBC 09/23/23 09/24/23 Range/Units 15:30 08:16 WBC 8.07 8.38 (4.8-10.8) K/ul Hgb 13.1 L 12.7 L (14.0-18.0) g/dl Hct 40.5 L 37.9 L (42.0-52.0) % Plt Count 154 143 (130-400) K/uL BMP 09/23/23 09/24/23 15:30 08:16 Sodium 141 142 Potassium 3.5 3.4 L Chloride 106 107 Carbon Dioxide 26 26 BUN 26 H 23 Creatinine 1.20 1.16 Glucose 125 H 90 Calcium 8.8 8.4 L Liver Function 09/23/23 Range/Units 15:30 Total Bilirubin 1.0 (0.2-1.0) mg/dl Direct Bilirubin 0.3 H (0-0.2) mg/dl AST 23 (13-39) U/L ALT 20 (7-52) U/L Alkaline Phosphatase 74 (34-104) U/L Albumin 3.8 (3.4-5.0) gm/dl Urine 09/23/23 Range/Units 19:32 Urine Color Dark Yellow Urine Appearance Cloudy A (Clear) Urine pH 5.5 (4.5-7.5) Ur Specific [place] 1.029 (1.000-1.030) Urine Protein 2+ H (Negative) Urine Glucose (UA) Negative (Negative) Diagnostic Findings Toe X-Ray 09/24/23 00:59 XR toe(s) LT min 2V CLINICAL HISTORY: red swollen after a fall, 5th digit COMPARISON: None FINDINGS: Alignment of the left fifth toe is anatomic. There is no acute fracture. No osseous lesions are identified. There is left fifth toe soft tissue swelling. IMPRESSION: No fracture or dislocation within the left fifth toe. ACT 112: Negative or not required by law. Electronically signed by: Tavon Momin M.D. 09/24/2023 9:17 AM Medications Administered Current Inpatient Medications Amiodarone HCl (Amiodarone 200 Mg Tab) 100 mg PO QAM [facility] Stop: 10/24/23 08:59 Last Admin: 09/24/23 08:18 Dose: 100 mg Aspirin (Aspirin 81 Mg Ectab) 81 mg PO HS [facility] Stop: 10/24/23 20:59 Donepezil HCl (Donepezil Hcl 10 Mg Tab) 10 mg PO QDD [facility] Stop: 10/24/23 16:29 Finasteride (Finasteride 5 Mg Tab) 5 mg PO QAM [facility] Stop: 10/24/23 08:59 Last Admin: 09/24/23 08:18 Dose: 5 mg Ceftriaxone Sodium 2,000 mg/ (Dextrose) 50 mls @ 100 mls/hr IV Q24H [facility]; Protocol Stop: 09/26/23 01:59 Last Infusion: 09/24/23 03:30 Dose: Infused Levothyroxine Sodium (Levothyroxine Sodium 88 Mcg Tablet) 88 mcg PO DAILYBB [facility] Stop: 10/24/23 06:29 Last Admin: 09/24/23 08:18 Dose: 88 mcg Memantine (Memantine Hcl 10 Mg Tab) 10 mg PO BIDM [facility] Stop: 10/24/23 07:59 Last Admin: 09/24/23 08:18 Dose: 10 mg Metoprolol Succinate (Metoprolol Succ 50mg Ext Rel Tab) 100 mg PO QAM [facility] Stop: 10/24/23 08:59 Last Admin: 09/24/23 08:18 Dose: 100 mg Miscellaneous (Order Awaiting Action: Levetiracetam [Keppra Xr] 500 Mg Tablet Extended Release 24 H) 1 each N/A QS [facility] Stop: 10/24/23 07:59 Last Admin: 09/24/23 08:30 Dose: Not Given Miscellaneous (Order Awaiting Action: Levetiracetam [Keppra Xr] 750 Mg Tablet Extended Release 24 Hr) 1 each N/A QS [facility] Stop: 10/24/23 07:59 Last Admin: 09/24/23 08:30 Dose: Not Given Nitroglycerin (Nitroglycerin Sl 0.4 Mg/Tab Tab) 0.4 mg SL Q5M PRN PRN Reason: Chest Pain Stop: 10/24/23 00:58 Pantoprazole Sodium (Pantoprazole 40 Mg Tab) 40 mg PO DAILYBB [facility] Stop: 10/24/23 06:29 Last Admin: 09/24/23 08:18 Dose: 40 mg Rosuvastatin Calcium (Rosuvastatin Calcium 5 Mg Tab) 5 mg PO DAILY [facility] Stop: 10/24/23 08:59 Last Admin: 09/24/23 08:18 Dose: 5 mg Vitamin D (Cholecalciferol 1,000 Units 25 Mcg Tab) 1,000 units PO HS [facility] Stop: 10/24/23 20:59 (5) CHF (congestive heart failure) Heart failure type: unspecified Heart failure chronicity: chronic Qualified Code(s): I50.9 - Heart failure, unspecified
[2023-09-24] MEDS ORDERED: hydrALAZINE HCL 20 MG/ML VIAL ONE (11:38)
--- NOTE | 2023-09-24 12:33 | Cardiology Consultation ---
Date of Consultation September 24, 2023 Assessment & Plan (1) Elevated troponin I level: (2) CHF (congestive heart failure): (3) COVID: (4) Alzheimer's dementia: (5) S/P placement of cardiac pacemaker: Plan 88-year-old male with complex history which includes progressive Alzheimer's type dementia, chronic stable ischemic heart disease, longstanding hypertension, prior atrial ventricular arrhythmia on chronic amiodarone therapy, past DVT describes several days history of progression in symptoms. Poor p.o. intake including medication Patient presents now with declining functional capacity acutely, increasing gait instability, falls, hematuria, weakness. Findings in ER reflect acute COVID infection Gross hematuria Elevated blood pressure Troponins mildly elevated but flat Echocardiogram without acute change Suspect acute changes multifactorial possibly reflecting acute COVID infection. Recommendation: Prehospital oral medications Single dose of IV furosemide Supportive care and treatment for infectious process, Paxlovid contraindicated History of Present Illness Reason for Consultation: Weakness, change in mental status Requesting Physician: Dr. Small Attending Physician: Meg Small, DO History of Present Illness Patient is a an 88-year-old male referred from home after change in mental status weakness, increasing debility, hematuria Underlying cardiac issues include 1. ASCVD with prior coronary interventions to the right coronary with chronic right coronary occlusion 2000, moderate diffuse coronary atherosclerosis, stable angina pectoris 2. 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 Medtronic model Advisa [id number] 3. Nonsustained ventricular tachycardia, well controlled on beta-david and amiodarone. 4. 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 5. Hyperlipidemia. Atorvastatin discontinued secondary to abnormal LFTs. Tolerating low dose rosuvastatin with dose reduced in the fall secondary to abnormal LFTs 6. Fatty liver, 2.3 cm cyst in the left hepatic lobe, followed by GI 7. Symptomatic orthostatic hypotension, significantly improved following multiple medical changes. 8. Unprovoked left upper extremity DVT, October 2018. Hypercoagulable workup negative. 9. Hypertension 10. Stage III chronic kidney disease 11. Hypothyroidism. 12. Progressive dementia. 13. Seizure disorder Patient unable to offer additional information with data obtained from review of records. Information provided to the emergency room per noted several days history of declining functional ability, fall and weakness. Poor p.o. intake and not taking medications. Urine notable for hematuria. No overt fevers or cough described ER evaluation demonstrates mild increase in vascular congestion on chest x-ray. Positive for COVID EKG with AV sequential pacing Echocardiogram preliminary demonstrates preserved LV systolic function without wall motion abnormality, mild to moderate left ventricular hypertrophy, aortic sclerosis, mild to moderate mitral insufficiency Allergies Allergy/AdvReac Type Severity Reaction Status Date / Time Iodinated Contrast Media Allergy Severe trouble Verified 09/23/23 19:00 breathing/hives Home Medications Medication Instructions Recorded Confirmed Type donepezil 10 mg tablet (Aricept) 10 mg PO QDD 11/20/18 09/23/23 History finasteride 5 mg tablet (Proscar) 5 mg PO QAM 11/20/18 09/23/23 History levetiracetam 500 mg 500 mg PO HS 11/20/18 09/23/23 History tablet,extended release 24 hr (Keppra XR) levetiracetam 750 mg 1,500 mg PO HS 11/20/18 09/23/23 History tablet,extended release 24 hr (Keppra XR) levothyroxine 88 mcg tablet 88 mcg PO DAILYBB 11/20/18 09/23/23 History memantine 10 mg tablet (Namenda) 10 mg PO BIDM 11/20/18 09/23/23 History nitroglycerin 0.4 mg sublingual 0.4 mg sublingual UD PRN Chest Pain 11/20/18 09/23/23 History tablet (Nitrostat) amiodarone 200 mg tablet 100 mg PO QAM 07/01/19 09/23/23 History cholecalciferol (vitamin D3) 25 1,000 unit PO HS 07/01/19 09/23/23 History mcg (1,000 unit) tablet (Vitamin D3) aspirin 81 mg tablet,delayed 81 mg PO HS 09/23/23 09/23/23 History release metoprolol succinate 100 mg 100 mg PO QAM 09/23/23 09/23/23 History tablet,extended release 24 hr omeprazole 20 mg capsule,delayed 20 mg PO DAILYBB 09/23/23 09/23/23 History release rosuvastatin 5 mg tablet 5 mg PO DAILY 09/23/23 09/23/23 History warfarin 5 mg tablet 2.5 - 5 mg PO DAILY 09/23/23 09/23/23 History Patient History Medical History BPH (benign prostatic hyperplasia) Hypothyroidism On anticoagulant therapy warfarin daily Deep vein thrombosis 2018--left arm--unknown reason--on warfarin Hearing deficit Dementia Myocardial Infarction 11/1999--follows with Dr. Coelho Non-sustained ventricular tachycardia GERD (gastroesophageal reflux disease) CKD (chronic kidney disease), stage III Sinus node dysfunction Seizure disorder last petite mal 06/2018--on keppra---follows with Dr. Meehan Dyslipidemia Symptomatic sinus bradycardia CAD (coronary artery disease) History of prior RCA interventions with chronic RCA occlusion Hypertension Surgical History History of colonoscopy History of bilateral cataract extraction History of heart artery stent 11/1999 @ [facility] [place] History of cardiac cath x1 11/1999 H/O inguinal hernia repair left H/O coronary artery balloon dilation 2000 @ [facility] [place] S/P placement of cardiac pacemaker 06/2015--meditronic Family History Other Family history non-contributory No family history of adverse response to anesthesia Social History Smoking Status: Never smoker Second Hand Exposure: Yes (father smoked cigars); Do You Dip or Chew Tobacco: No; Hx Alcohol Use: No Hx Substance Use: No Preferred Language: Kiswahili Communication Ability: Effective Engineering And Scientific Programmer Required: No Beliefs That Will Affect Care: None marital status: Current Living Situation: Spouse Feels Safe at Home: Yes Assistive Devices: Hearing Aid - Bilateral and Walker Review of Systems Review of Systems: Unobtainable due to cognitive status Results & Data Vital Signs (Past 12 Hours) Vital Signs Pulse Pulse Resp BP Pulse Ox O2 Del Method 09/24/23 11:53 61 18 159/78 H 95 Room Air 09/24/23 09:57 62 18 173/91 H 97 Room Air 09/24/23 08:31 75 18 180/99 H 92 Room Air 09/24/23 07:17 62 09/24/23 01:51 76 09/24/23 00:30 60 23 92 Room Air Diagnostic Findings Pacemaker interrogation 09/06/2023 Normal device function with AV sequential pacing 100%, no atrial fibrillation Estimated battery life 11 months ECG Additional Comments: EKG 09/23/2023 AV sequential pacing at 75 bpm
[2023-09-24] MEDS ORDERED: FUROSEMIDE INJ 20 MG/2 ML VIAL IV ONE (13:11)
[2023-09-24] MEDS ORDERED: POTASSIUM CHLORIDE 20 MEQ/15 ML UDC PO STA (13:15)
--- NOTE | 2023-09-24 14:31 | Electrocardiogram Report ---
Test Reason : Blood Pressure : / mmHG Vent. Rate : 075 BPM Atrial Rate : 075 BPM P-R Int : 198 ms QRS Dur : 172 ms QT Int : 506 ms P-R-T Axes : 099 -77 096 degrees QTc Int : 565 ms AV dual-paced rhythm Abnormal ECG When compared with ECG of 22-NOV-2018 06:06, Vent. rate has increased BY 15 BPM Confirmed by Wilfredo Dunaway ([id number]) on 09/24/2023 2:31:25 PM Referred By: Jordana Hopkins Confirmed By:Wilfredo Dunaway
[2023-09-24] MEDS: DONEPEZIL HCL 10 MG TAB PO SCH (18:32)
[2023-09-24] MEDS: ASPIRIN 81 MG ECTAB PO SCH (23:25)
[2023-09-24] MEDS: amLODIPine BESYLATE 5 MG TAB PO SCH (23:25)
[2023-09-24] MEDS: CHOLECALCIFEROL 1,000 UNITS 25 MCG TAB PO SCH (23:26)
[2023-09-25] MEDS ORDERED: levETIRAcetam 750 MG in SODIUM CHLOR 0.9% MINI-B 100 ML IV SCH (02:00)
[2023-09-25] MEDS ORDERED: hydrALAZINE HCL 20 MG/ML VIAL IV ONE (02:31)
[2023-09-25] MEDS: cefTRIAXone SODIUM 2,000 MG in DEXTROSE 5 % MINI-B 50 ML IV SCH (02:47)
[2023-09-25 04:55] LABS: Hematocrit (blood only) 39.3 % (42.0-52.0); Hemoglobin 13.2 g/dl (14.0-18.0); Mean Corpuscular Hemoglobin 31.2 pg (25.0-34.0); Mean Corpuscular Hgb Conc 33.6 g/dL (32.0-36.0); Mean Corpuscular Volume 92.9 fL (80.0-100.0); Mean Platelet Volume 10.7 fL (9.4-12.4); Platelet Count 162 K/uL (130-400); RDW Coefficient of Variation 13.6 % (11.5-14.5); RDW Standard Deviation 46.6 fL (36.4-46.3); Red Blood Count 4.23 M/uL (4.70-6.10); White Blood Count 8.36 K/ul (4.8-10.8)
[2023-09-25 05:03] LABS: BUN Creatinine Ratio 17.1 (10-20); Calcium 8.5 mg/dl (8.6-10.3); Creatinine Clr Calc Pharmacy 44.6 ml/min; Est GFR (African American) 68.3 ml/min; Potassium 3.1 mmol/L (3.5-5.1)
[2023-09-25 05:17] LABS: INR 1.5 (0.9-1.1); Prothrombin Time 16.2 Seconds (9.0-12.0)
[2023-09-25] MEDS: PANTOprazole 40 MG TAB PO SCH (07:30)
[2023-09-25] MEDS: LEVOTHYROXINE SODIUM 88 MCG TABLET PO SCH (07:30)
[2023-09-25] MEDS: METOPROLOL SUCC 50MG EXT REL TAB PO SCH (08:09)
[2023-09-25] MEDS: ROSUVASTATIN CALCIUM 5 MG TAB PO SCH (08:09)
[2023-09-25] MEDS: FINASTERIDE 5 MG TAB PO SCH (08:09)
[2023-09-25] MEDS: AMIODARONE 200 MG TAB PO SCH (08:10)
[2023-09-25] MEDS: MEMANTINE HCL 10 MG TAB PO SCH ×2 (08:10→17:18)
[2023-09-25] MEDS: POTASSIUM CHLORIDE PWD 20 MEQ PACK PO SCH ×2 (10:35→17:18)
[2023-09-25] MEDS: LOSARTAN POTASSIUM 50 MG TAB PO SCH (10:35)
--- NOTE | 2023-09-25 11:22 | Cardiology Progress Note ---
Date of Service September 25, 2023 Assessment & Plan (1) Elevated troponin I level: (2) CHF (congestive heart failure): (3) COVID: (4) Alzheimer's dementia: (5) S/P placement of cardiac pacemaker: Plan 88-year-old male with complex history which includes progressive Alzheimer's type dementia, chronic stable ischemic heart disease, longstanding hypertension, prior atrial ventricular arrhythmia on chronic amiodarone therapy, past DVT describes several days history of progression in symptoms. Poor p.o. intake including medication 1. Elevated troponins: Mildly elevated, but flat in trend, not suggestive of ACS likely secondary to acute infectious process in the setting of an active Covid infection Echocardiogram with no acute changes. 2. CHF: Patient appears euvolemic by physical exam. While unable to obtain appropriate ROS due to declining cognitive status he does not appear in any acute respiratory distress. Continue with Toprol xl and Losartan as part of HF regimen. No acute changes on echocardiogram. No additional diuresis is needed at this time per physical exam 3. COVID -Signficant contributing factor for worsening cognitive decline and weakness/falls. -Continue with supportive care. -Also awaiting Urine culture to exclude active UTI. Treated empirically with IV Rocephin. -Paxlovid is contraindicated. 5. Alzehimers dementia -patient is resting comfortably with now at bedside. -Continued supportive care as appropriate. -continue home medication regimen. 6. Presence of pacemaker Medtronic Advisa dual Chamber PPM Summary report obtained on day of admission demonstrates normal device function. No events. AP 100% SORORITY SUPERVISOR 100% . Case has been discussed with Dr. Coelho. Further recommendations regarding plan of care as per his assessment. I spent a total of 30 minutes on the date of service in preparation, delivery, documentation of the care provided to the patient excluding any time spent in the performance of separately billed services. LISA Zepeda [facility] [employer] Admission and Anticipated Discharge Date Admission Date: September 23, 2023 Supervising Physician Co-Signing Physician Notes Patient was seen and personally examined. Care discussed with patient and his . Patient much more alert today answering questions. Cardiac status appears stable. No arrhythmias on telemetry. Normal pacemaker function. Exam does not suggest volume overload or worsening heart failure. Suspect acute decline secondary to infectious processes, lapse in medical therapy Now slowly improving Patient with longstanding hypertensive history Agree with addition of Losartan and amlodipine Continue metoprolol succinate Continue amiodarone Echocardiogram not significantly changed other than increase in pulmonary pressures likely multifactorial Subjective 09/25/2023: Patient examined today in follow up. Remains in ED holding. is at bedside. 1:1 sitter present as well. Patient is awake and alert, but does not response to any questions which is in part due to his decreased cognitive status in the setting of advancing dementia. has placed patient's hearing aides, and is assisting patient to sit up to attempt breakfast. 1:1 sitter states that patient has been resting comfortably for the past few hours, but was quite restless overnight. Review of telemetry shows no acute events overnight. Presence of a pacemaker. AV paced Rate 70's-80's. Review of Systems Review of Systems: Unobtainable due to cognitive status Physical Exam Constitutional: well developed, well nourished and + altered mental status; no acute distress Neck: normal visual inspection and trachea midline Respiratory: normal respiratory effort, lungs clear to auscultation Cardiovascular: RRR, no murmur, no edema Psychiatric: Orientation: alert; + not oriented x 3 Affect: + labile affect Results & Data Vital Signs (Past 12 Hours) Vital Signs Temp Pulse Pulse Resp BP BP Pulse Ox 09/25/23 07:21 67 09/25/23 06:48 89 20 173/109 H 98 09/25/23 02:20 68 16 95 09/25/23 02:10 62 21 96 09/25/23 02:00 60 25 H 209/100 H 95 09/25/23 01:50 61 17 92 09/25/23 01:40 62 22 92 09/25/23 01:31 62 26 H 205/112 H 09/25/23 01:20 82 23 95 09/25/23 01:10 78 28 H 95 09/25/23 01:02 72 18 167/114 H 94 09/25/23 00:49 63 19 95 09/25/23 00:40 86 24 93 09/25/23 00:32 62 20 185/88 H 95 09/25/23 00:30 65 16 97 09/25/23 00:20 62 21 96 09/25/23 00:10 70 21 97 09/25/23 00:09 74 01/02/24 00:01 83 20 94 09/25/23 00:00 75 26 H 94 09/24/23 23:50 63 22 94 09/24/23 23:41 87 23 / H 94 09/24/23 23:41 37.2 C 84 22 H 97 09/24/23 23:40 92 H 19 98 O2 Del Method 09/25/23 07:21 09/25/23 06:48 Room Air 09/25/23 02:20 09/25/23 02:10 Room Air 09/25/23 02:00 Room Air 09/25/23 01:50 Room Air 09/25/23 01:40 Room Air 09/25/23 01:31 09/25/23 01:20 Room Air 09/25/23 01:10 Room Air 09/25/23 01:02 Room Air 09/25/23 00:49 Room Air 09/25/23 00:40 Room Air 09/25/23 00:32 Room Air 09/25/23 00:30 Room Air 09/25/23 00:20 Room Air 09/25/23 00:10 Room Air 09/25/23 00:09 09/25/23 00:01 Room Air 09/25/23 00:00 Room Air 09/24/23 23:50 Room Air 09/24/23 23:41 Room Air 09/24/23 23:41 Room Air 09/24/23 23:40 Room Air Laboratory Results Coagulation 09/25/23 Range/Units 04:07 PT 16.2 H (9.0-12.0) Seconds CBC 09/25/23 Range/Units 04:07 WBC 8.36 (4.8-10.8) K/ul RBC 4.23 L (4.70-6.10) M/uL Hgb 13.2 L (14.0-18.0) g/dl Hct 39.3 L (42.0-52.0) % Plt Count 162 (130-400) K/uL Comprehensive Metabolic Panel 09/25/23 Range/Units 04:07 Sodium 142 (136-145) mmol/L Potassium 3.1 L (3.5-5.1) mmol/L Chloride 105 (98-107) mmol/L Carbon Dioxide 26 (21-32) mmol/L BUN 19 (6-23) mg/dl Creatinine 1.11 (0.6-1.4) mg/dl Glucose 97 (70-99(Fasting)) mg/dl Calcium 8.5 L (8.6-10.3) mg/dl Intake and Output 09/24/23 09/25/23 09/25/23 22:59 06:59 14:59 Intake Total 100 / 957.5 517.5 / 957.5 Output Total 450 / 550 Balance -350 / 407.5 517.5 / 407.5 Intake: IV 157.5 / 157.5 cefTRIAXone SODIUM 2,000 mg In 50 / 50 Dextrose 5 % Mini-B 50 ml @ 100 mls/hr IV Q24H [facility] Rx#: [id number] levETIRAcetam 750 mg In Sodium 107.5 / 107.5 Chlor 0.9% Mini-B 100 ml @ 420 mls/hr IV Q12H [facility] Rx#:[id number] Oral 100 / 800 360 / 800 Output: Urine 450 / 550 Other: # Unmeasured Voids 1 1 # Urine Diapers 1 Weight 86.6 kg Weight Measurement Method Built in [facility] Patient Weight 09/26/23 06:59 Weight 86.6 kg Diagnostic Findings EKG 09/24/2023 AV paced Rate 75bpm Echocardiogram today Moderate concentric LV hypertrophy Basal septum thickened and angulated consistent with sigmoid septum LV wall motion is normal. LVEF 55-60% Mild to moderate MR Moderate TR No hemodynamically significant valvular Right ventricular systolic pressure is elevated at 50-60mmHG (2) CHF (congestive heart failure) Heart failure chronicity: chronic Heart failure type: unspecified Qualified Code(s): I50.9 - Heart failure, unspecified (4) Alzheimer's dementia Alzheimer's disease onset: unspecified onset
--- NOTE | 2023-09-25 12:56 | Ultrasound Report ---
US duplex renal artery CLINICAL HISTORY: r/o DEIDRA, abrupt HTN COMPARISON STUDY: Renal ultrasound December 04, 2010. TECHNIQUE: Color and duplex Doppler sonography of the abdominal aorta and renal arteries was niesha luna FINDINGS: The right kidney measures 10.1 cm in maximal dimension and the left measures 11.6 cm. There is no right hydronephrosis. There is mild bilateral renal cortical thinning. There is a probable 6.3 cm left parapelvic cysts, increased in size since ultrasound of December 04, 2010. Differentiation betw een parapelvic cysts and hydronephrosis is difficult by sonography however the findings suggest mild to moderate left hydronephrosis. Additional smaller left renal cyst is present. Peak systolic velocit y within the abdominal aorta was 82 cm/s. No elevated velocities were identified within the renal art eries however the renal arteries were partially obscured. Therefore, this study is nondiagnostic for evaluation for renal artery stenosis. IMPRESSION: 1. No elevated velocities within the renal arteries however portions of the renal arteries are obscur ed. Therefore, this study is nondiagnostic for evaluation for renal artery stenosis. 2. Suspected mild to moderate left hydronephrosis. No right hydronephrosis. ACT 112: Negative or not required by law. Electronically signed by: Tavon Momin M.D. 09/25/2023 12:55 PM
--- NOTE | 2023-09-25 15:08 | Hospitalist Progress Note ---
Date of Service September 25, 2023 Assessment & Plan (1) Generalized muscle weakness: (2) COVID: (3) Alzheimer's dementia: (4) Hypertension: (5) Elevated troponin I level: (6) CHF (congestive heart failure): (7) Hematuria: Plan Pt is an 88yoM with PMhx significant for SSS s/p pacemaker placement, Hx of Alzheimer's Dementia, Seizure disorder, CKD admitted after being brought in family with concern for generalized weakness. Generalized Weakness 2/2 COVID 19 infection Acute metabolic encephalopathy Alzheimer's Dementia Agitation and known h/o sundowning Per , pt could not walk or stand with his walker, fell at home [employer] notes new episode of urinary incontinence at home UTI possible with gross hematuria and incontinence. Pat is confused so he cannot report symptoms. Cont empiric Rocephin for the time being. hs-Trops elevated at 54.2 to 57.9, with flat trend, no rise. EKG with paced rhythm and no nonverbal communication or S/Sx of ACS--elev trop is more likely demand ischemia in setting of covid infection. No pneumonia on CXR and no hypoxia is present. BNP elevated at 1150, echo ordered and pending Head CT with no acute findings PT/OT evaluations when able. Cont supportive care efforts. Continue home aricept and namenda CHF elevated troponin cardiac pacemaker in place Follows with Dr Coelho from [facility] BNP elevated at 1150 and echo ordered Chest xray noting cardiomegaly with pacemaker and pulmonary vascular congestion Echo ordered and pending Last echo in [facility] in 2020 noted EF 55%, Grade II diastolic dysfunction Cardiology saw him and gave lasix 20mg IV once, will follow progress clinically daily weight, low sodium diet Gross Hematuria mild hydronephrosis of left kidney Gross hematuria occurred very transiently after arriving to the ER Also had episode of urinary incontinence at home UA confirming presence of blood and blood noted on exam in pt's genital area Initially held warfarin, and hematuria has now resolved. INR now 1.5 so will restart warfarin. Renal us today revealed mild hydronephrosis on left kidney Patient denies any pain or discomfort with a resolution of hematuria. Cont bladder scans per urology to ensure not retaining--> looks good at this time Empiric Rocephin was started, however, UTI was ruled out and this was stopped. Given he has dementia with new HTN that is persistent, and left sided hydronephrosis, I am concerned he may be experiencing pain from a kidney stone that he cannot articulate. Will order CT a/p with contrast to rule this out. Hypokalemia replace with oral potassium, repeat BMP in am. Elevated BP No history of HTN per outpatient record review. Pt denies pain, but also is disoriented from dementia and was delirious overnight. Initial hematuria is gone with warfarin held. CT a/p to rule out kidney stone given elevated BP, hematuria, and left hydronephrosis on renal us. Seizure history chronic, stable. Cont Keppra IR while inpatient with XR not on formulary CODE STATUS: DNR/DNI DVT prophylaxis: On warfarin currently on hold with hematuria Diet: HH Dispo: Med/Surg with tele I spent a total [id number] coordinating, documenting, and providing care for this patient excluding time spent in the performance of separately billed services Meg Small DO [facility] Hospitalist Admission and Anticipated Discharge Date Admission Date: September 23, 2023 Subjective 88-year-old man presents for progressive weakness and a fall. Found to have COVID-19 infection. No hypoxia No symptoms of cough, nasal congestion, SOB ,pain, etc Doing well overall more interactive with his hearing aids in at bedside patient is oriented to person only discussed with spouse that therapy will help us understand when it is safe to return home she verbalized understanding Physical Exam Physical Exam: CONSTITUTIONAL: WNWD, vitals as above, NAD EYES: pupils are round and equal bilaterally, normal conjunctivae, no scleral icterus ENT: external ear and nose normal NECK: trachea midline RESPIRATORY: clear to auscultation bilaterally, no crackles, rales or wheezes, normal respiratory effort CARDIOVASCULAR: regular rate and rhythm, S1 and 2 heard without murmurs, gallops or rubs, no JVD, no peripheral edema CHEST: inspection of chest was normal GASTROINTESTINAL: soft, nontender, ND, no guarding MUSCULOSKELETAL: 5/5 strength throughout, no gross focal deficits. SKIN: warm and dry NEUROLOGIC: alert, answering questions appropriately. CN 2-12 grossly intact. No gross focal neuro deficits. Hard of hearing which is chronic. . PSYCHIATRIC: oriented to person only. Results & Data Results & Data Vital Signs (Past 12 Hours) Vital Signs Pulse Pulse Resp BP Pulse Ox O2 Del Method 01/02/24 07:21 67 09/25/23 06:48 89 20 173/109 H 98 Room Air Laboratory Results Short CBC 09/25/23 Range/Units 04:07 WBC 8.36 (4.8-10.8) K/ul Hgb 13.2 L (14.0-18.0) g/dl Hct 39.3 L (42.0-52.0) % Plt Count 162 (130-400) K/uL BMP 09/25/23 04:07 Sodium 142 Potassium 3.1 L Chloride 105 Carbon Dioxide 26 BUN 19 Creatinine 1.11 Glucose 97 Calcium 8.5 L Diagnostic Findings Renal Artery Duplex 09/25/23 09:48 US duplex renal artery CLINICAL HISTORY: r/o DEIDRA, abrupt HTN COMPARISON STUDY: Renal ultrasound December 04, 2010. TECHNIQUE: Color and duplex Doppler sonography of the abdominal aorta and renal arteries was attempted. FINDINGS: The right kidney measures 10.1 cm in maximal dimension and the left measures 11.6 cm. There is no right hydronephrosis. There is mild bilateral renal cortical thinning. There is a probable 6.3 cm left parapelvic cysts, increased in size since ultrasound of December 04, 2010. Differentiation between parapelvic cysts and hydronephrosis is difficult by sonography however the findings suggest mild to moderate left hydronephrosis. Additional smaller left renal cyst is present. Peak systolic velocity within the abdominal aorta was 82 cm/s. No elevated velocities were identified within the renal arteries however the renal arteries were partially obscured. Therefore, this study is nondiagnostic for evaluation for renal artery stenosis. IMPRESSION: 1. No elevated velocities within the renal arteries however portions of the renal arteries are obscured. Therefore, this study is nondiagnostic for evaluation for renal artery stenosis. 2. Suspected mild to moderate left hydronephrosis. No right hydronephrosis. ACT 112: Negative or not required by law. Electronically signed by: Tavon Momin M.D. 09/25/2023 12:55 PM (3) Alzheimer's dementia Alzheimer's disease onset: unspecified onset (6) CHF (congestive heart failure) Heart failure chronicity: chronic Heart failure type: unspecified Qualified Code(s): I50.9 - Heart failure, unspecified
[2023-09-25] MEDS: WARFARIN SOD 5 MG TAB PO SCH (17:17)
[2023-09-25] MEDS: DONEPEZIL HCL 10 MG TAB PO SCH (17:18)
--- NOTE | 2023-09-25 17:26 | CT Scan Report ---
ABDOMEN AND PELVIS CT WITHOUT CONTRAST CT DOSE: 1332.43 mGy.cm HISTORY: Acute hematuria recent hematuria, no abd pain but elev BP, dementi TECHNIQUE: Multiaxial CT images of the abdomen and pelvis were performed without contrast. A dose lo wering technique was utilized adhering to the principles of ALARA. COMPARISON STUDY: Renal ultrasound of same day FINDINGS: Cardiomegaly with cardiac pacer leads. Coronary artery calcifications. Trace pleural effusi ons with mild bibasilar atelectasis and intralobular septal thickening. There are a few tiny low susp icion solid nodules within the left lower lobe measuring up to 3 mm. No free air. Calcified granulomas of the spleen. Unremarkable gallbladder and adrenal glands. 2 cm left hepatic lo be cyst. 3.3 x 1.8 cm cystic lesion of the pancreatic tail with possible partially calcified septatio ns. Moderately atrophic pancreas. Bilateral perinephric stranding. 9.0 x 6.5 cm cystic structure in the mid left kidney suggestive of a cyst causing mass effect on the renal collecting system with mild superior pole caliectasis. A few a dditional cyst with a probable complex 11 mm cyst of the interpolar left kidney with Hounsfield unit of 58. Mild cortical thinning of the kidneys. No renal or ureteral calculi. Decompressed urinary blad coleen with wall thickening. Prostatomegaly. Atherosclerosis of the aorta is severe. Fusiform ectasia of the infrarenal abdominal aorta, 2.6 x 2.8 cm. No lymphadenopathy. Small moderate hiatal hernia. Duodenal diverticulum. Colonic diverticulosis. Normal appendix. Unremar kable soft tissues. No acute fracture. Degenerative changes of the spine, pelvis and hips. IMPRESSION: 1. Prostamegaly with findings suggestive of chronic outlet obstruction. Correlate with urinalysis. 2. There is a large cyst of the left kidney compressing the renal collecting system resulting in supe rior pole caliectasis. 3. Hiatal hernia. 4. No bowel obstruction or bowel wall thickening. 5. Indeterminate 3.3 cm cystic lesion of the pancreatic tail. 6. Additional findings as above. ACT 112: Negative or not required by law. The above report was generated using voice recognition software. It may contain grammatical, syntax o r spelling errors. Electronically signed by: Shmuel Tang M.D. 09/25/2023 5:25 PM
[2023-09-25] MEDS: levETIRAcetam 500 MG TAB PO SCH (17:37)
[2023-09-25] MEDS: amLODIPine BESYLATE 5 MG TAB PO SCH (21:07)
[2023-09-25] MEDS: ASPIRIN 81 MG ECTAB PO SCH (21:07)
[2023-09-25] MEDS: CHOLECALCIFEROL 1,000 UNITS 25 MCG TAB PO SCH (21:07)
[2023-09-26] MEDS: LEVOTHYROXINE SODIUM 88 MCG TABLET PO SCH (06:16)
[2023-09-26] MEDS: PANTOprazole 40 MG TAB PO SCH (06:16)
[2023-09-26] MEDS: levETIRAcetam 500 MG TAB PO SCH ×2 (06:43→17:13)
[2023-09-26 07:20] LABS: Hematocrit (blood only) 39.3 % (42.0-52.0); Hemoglobin 12.9 g/dl (14.0-18.0); Mean Corpuscular Hgb Conc 32.8 g/dL (32.0-36.0); Mean Corpuscular Volume 94.5 fL (80.0-100.0); Mean Platelet Volume 10.6 fL (9.4-12.4); Platelet Count 170 K/uL (130-400); RDW Coefficient of Variation 13.6 % (11.5-14.5); RDW Standard Deviation 47.7 fL (36.4-46.3); Red Blood Count 4.16 M/uL (4.70-6.10); White Blood Count 5.68 K/ul (4.8-10.8)
[2023-09-26 07:49] LABS: Calcium 8.4 mg/dl (8.6-10.3); Creatinine Clr Calc Pharmacy 44.5 ml/min; Est GFR (African American) 73.1 ml/min; Est GFR (Non-African American) 63.1 ml/min; Potassium 3.2 mmol/L (3.5-5.1)
[2023-09-26 07:51] LABS: INR 1.4 (0.9-1.1); Prothrombin Time 14.9 Seconds (9.0-12.0)
[2023-09-26] MEDS: METOPROLOL SUCC 50MG EXT REL TAB PO SCH (08:52)
[2023-09-26] MEDS: LOSARTAN POTASSIUM 50 MG TAB PO SCH (08:52)
[2023-09-26] MEDS: AMIODARONE 200 MG TAB PO SCH (08:52)
[2023-09-26] MEDS: FINASTERIDE 5 MG TAB PO SCH (08:52)
[2023-09-26] MEDS: MEMANTINE HCL 10 MG TAB PO SCH ×2 (08:52→15:45)
[2023-09-26] MEDS: ROSUVASTATIN CALCIUM 5 MG TAB PO SCH (08:52)
--- NOTE | 2023-09-26 09:21 | Urology Progress Note ---
Date of Service September 26, 2023 Assessment & Plan (1) Hematuria: (2) Renal cyst, left: Plan: Follow-up of hematuria; left renal cyst Patient afebrile Labscreatinine 1.05, no leukocytosis, hemoglobin 12.9 Urine culture with no growth Blood cultures with no growth to date Hematuria has cleared per chart notes, pt is back on warfarin Patient underwent CT imaging yesterday to rule out stone due to possible left hydronephrosis seen on US duplex renal artery CT A/P reviewed and notable for a large left renal cyst compressing the renal collecting system resulting in superior pole caliectasis Renal function is normal and he does not appear to be having flank pain No acute intervention at this time Will plan for outpatient follow-up for further evaluation of hematuria and left renal cyst will sign off Admission and Anticipated Discharge Date Admission Date: September 23, 2023 Subjective Patient seen and examined at bedside this morning, chart reviewed 1:1 bedside sitter present Patient is resting in bed, arouses to his name He is not interactive with me Offers no complaints, denies pain Review of Systems Review of Systems: Unobtainable due to cognitive status Physical Exam Constitutional: no acute distress Respiratory: normal respiratory effort; no respiratory distress and no labored breathing Gastrointestinal (Abdomen): Inspection/Auscultation: abdomen normal to inspection Musculoskeletal: Head/Neck/Chest: normocephalic Neurologic: moves all extremities and awake Psychiatric: Orientation: oriented to person Genitourinary: no CVA tenderness Results & Data Vital Signs (Past 12 Hours) Vital Signs Temp Pulse Pulse Resp BP Pulse Ox O2 Del Method 09/26/23 07:55 36.5 C 71 18 152/71 H 97 Room Air 09/26/23 07:18 60 09/26/23 03:44 36.8 C 58 L 20 177/82 H 94 Room Air 09/26/23 01:02 60 09/25/23 23:12 36.6 C 60 20 162/79 H 98 Room Air 09/25/23 22:49 36.6 C 60 18 188/97 H 98 Room Air 09/25/23 22:20 Room Air PG Care Time/CCT Total # of Minutes Spent Total Time Spent with Patient: Total time spent is greater than 50% in coordination of care (as documented) at patient's floor/unit and/or counseling patient: Coding Level of Care Code 62865 SUB INP/OBS CARE MIN Diagnoses Hematuria R31.9 Renal cyst, left N28.1
--- NOTE | 2023-09-26 13:19 | Hospitalist Progress Note ---
Date of Service September 26, 2023 Assessment & Plan (1) Generalized muscle weakness: (2) COVID: (3) Alzheimer's dementia: (4) Hypertension: (5) Elevated troponin I level: (6) CHF (congestive heart failure): (7) Hematuria: Plan Pt is an 88yoM with PMhx significant for SSS s/p pacemaker placement, Hx of Alzheimer's Dementia, Seizure disorder, CKD admitted after being brought in family with concern for generalized weakness. Generalized Weakness 2/2 COVID 19 infection Acute metabolic encephalopathy Alzheimer's Dementia Agitation and known h/o sundowning Patient presented with generalized weakness and mechanical fall. Found to have COVID-19 infection Urine cultureno growth Blood cultureno growth in 48 hours PT OT recommends possible rehab. Case management on board. Continue PT OT Supplemental oxygen if needed if SpO2 is less than 90%. CHF Demand ischemia cardiac pacemaker in place Follows with Dr Coelho from [facility] BNP elevated at 1150 Chest xray noting cardiomegaly with pacemaker and pulmonary vascular congestion Echocardiogram shows EF of 55 to 60%; moderate LVH. daily weight, low sodium diet Not on diuretics at home. Gross Hematuria Left kidney cyst Gross hematuria occurred very transiently after arriving to the ER Also had episode of urinary incontinence at home UA confirming presence of blood Urine cultureno growth CT abdomen pelvis done on September 25 shows large cyst of the left kidney compressing the renal collecting system. Indeterminate 3.3 cm cystic lesion of the pancreatic tail Discussed with urology PA; to follow-up as outpatient. I discussed the finding with the patient's as well; answered questions and queries. Patient to follow-up with PCP and urology. Warfarin resumed. Monitor urine output. Hypokalemia replace with oral potassium, repeat BMP in am. Seizure history chronic, stable. Cont Keppra IR while inpatient with XR not on formulary CODE STATUS: DNR/DNI DVT prophylaxis: On warfarin Diet: Dispo: Patient hospitalized with COVID-19 infection and generalized weakness. PT OT recommends rehab. Possible home with home health versus rehab in next few days Time spent evaluating patient, direct bedside care, chart review, placing orders, interpretation of diagnostic studies, discussion with consultants, patient, and family members, as well as other required patient management activities is 60 minutes Please note the above document was generated using voice recognition software. It may contain grammatical, syntax or spelling errors. Any formal questions or concerns about the content, text or information contained within the body of this dictation should be directly addressed to the provider for clarification Admission and Anticipated Discharge Date Admission Date: September 23, 2023 Subjective Patient seen and examined at bedside. He is lying in the bed comfortably; not in any distress. He denies any pain or discomfort. He denies fever, chills, chest pain or shortness of breath. Review of Systems Review of Systems: All systems reviewed & are unremarkable except as noted in Subjective Physical Exam Physical Exam: Constitutional: alert oriented x 3; not in distress. Respiratory: Bilateral vesicular breath sound. Cardiovascular: RRR, no murmur, no edema Vessels: no JVD or carotid bruit Chest: normal inspection of chest Abdomen: Soft, nontender Musculoskeletal: no cyanosis or clubbing, extremities motor strength 5/5 Skin: no rashes, warm and dry normal turgor Results & Data Results & Data Vital Signs (Past 12 Hours) Vital Signs Temp Pulse Pulse Resp BP Pulse Ox O2 Del Method 09/26/23 12:04 36.6 C 86 15 161/89 H 92 Room Air 09/26/23 07:55 36.5 C 71 18 152/71 H 97 Room Air 09/26/23 07:18 60 09/26/23 03:44 36.8 C 58 L 20 177/82 H 94 Room Air (3) Alzheimer's dementia Alzheimer's disease onset: unspecified onset (6) CHF (congestive heart failure) Heart failure type: unspecified Heart failure chronicity: chronic Qualified Code(s): I50.9 - Heart failure, unspecified
[2023-09-26] MEDS: WARFARIN SOD 5 MG TAB PO SCH (15:45)
[2023-09-26] MEDS: DONEPEZIL HCL 10 MG TAB PO SCH (15:45)
[2023-09-26] MEDS: ASPIRIN 81 MG ECTAB PO SCH (19:58)
[2023-09-26] MEDS: CHOLECALCIFEROL 1,000 UNITS 25 MCG TAB PO SCH (19:58)
[2023-09-26] MEDS: amLODIPine BESYLATE 5 MG TAB PO SCH (19:58)
[2023-09-27] MEDS: PANTOprazole 40 MG TAB PO SCH (06:04)
[2023-09-27] MEDS: LEVOTHYROXINE SODIUM 88 MCG TABLET PO SCH (06:04)
[2023-09-27] MEDS: levETIRAcetam 500 MG TAB PO SCH (06:04)
[2023-09-27] MEDS: FINASTERIDE 5 MG TAB PO SCH (08:59)
[2023-09-27] MEDS: MEMANTINE HCL 10 MG TAB PO SCH (08:59)
[2023-09-27] MEDS: METOPROLOL SUCC 50MG EXT REL TAB PO SCH (08:59)
[2023-09-27] MEDS: ROSUVASTATIN CALCIUM 5 MG TAB PO SCH (08:59)
[2023-09-27] MEDS: AMIODARONE 200 MG TAB PO SCH (08:59)
[2023-09-27] MEDS: LOSARTAN POTASSIUM 50 MG TAB PO SCH (09:00)
--- NOTE | 2023-09-27 12:46 | Discharge Summary ---
Date of Service September 27, 2023 Admission HPI Per Admitting Provider Pt is an 88yoM with PMhx significant for SSS s/p pacemaker placement, Hx of Alzheimer's Dementia, Seizure disorder, CKD admitted after being brought in family with concern for generalized weakness. Pt's and daughter at bedside. states that he typically uses a walker at home but could not walk/stand today. Was also incontinent in bed today which is new for him. States that he fell out of bed as well. Daughter notes that it looked like his feet were purple at one time and that there is now some redness and swelling to the 5th digit of the left foot. Pt is AAOx1 which they state is his baseline. They note Hx of Alzheimer's dementia and that he also sundowns. They state that he follows with cardiology after a Hx of stent placements in the past many years ago, Dr Coelho. pt also has a pacemaker. states that he has not been eating and drinking and has not been taking his medications. So she is very concerned about that as well. Admission Exam Per Admitting Provider General: Alert, orientedx1. No acute distress laying in bed. Skin: daryl blood noted on skin in genital area Psych: could not be determined Neuro: No gross deficits while laying in bed HEENT: NC/AT CV: RRR Resp: Breath sounds clear bilaterally, no increased effort of breathing. Abdomen: Soft, nontender Extremities: No edema in lower extremities bilaterally, 5th digit of left foot red and swollen Principal Diagnosis Generalized weakness COVID-19 infection Discharge Exam Constitutional: alert oriented x 3; not in distress. Respiratory: Bilateral vesicular breath sound. Cardiovascular: RRR, no murmur, no edema Vessels: no JVD or carotid bruit Chest: normal inspection of chest Abdomen: Soft, nontender Musculoskeletal: no cyanosis or clubbing, extremities motor strength 5/5 Skin: no rashes, warm and dry normal turgor Discharge Data Allergies Allergy/AdvReac Type Severity Reaction Status Date / Time Iodinated Contrast Media Allergy Severe trouble Verified 09/23/23 19:00 breathing/hives Consultations 09/23/23 19:16 ED Decision to Admit Stat 09/24/23 00:59 Consult Cardiology Routine Consult Urology Routine Ordered Studies 09/23/23 15:54 CT cervical spine wo con Stat CT head/brain wo con Stat 09/25/23 09:48 US doppler renal [US duplex renal artery] Routine 09/25/23 16:53 CT abd pelvis wo con Routine Hospital Course (1) Generalized muscle weakness: (2) COVID: (3) Alzheimer's dementia: (4) Hypertension: (5) Elevated troponin I level: (6) CHF (congestive heart failure): (7) Hematuria: Plan Pt is an 88yoM with PMhx significant for SSS s/p pacemaker placement, Hx of Alzheimer's Dementia, Seizure disorder, CKD admitted after being brought in family with concern for generalized weakness. Generalized Weakness 2/2 COVID 19 infection Acute metabolic encephalopathy Alzheimer's Dementia Patient presented with generalized weakness and mechanical fall. Found to have COVID-19 infection Urine cultureno growth Blood cultureno growth in 48 hours Throughout the hospitalization, patient was at room air. No supplemental oxygen needed. PT OT had recommended rehab. After discussion with family; patient was discharged home with home health. Gross Hematuria Left kidney cyst Gross hematuria occurred very transiently after arriving to the ER Also had episode of urinary incontinence at home UA confirming presence of blood Urine cultureno growth CT abdomen pelvis done on September 25 shows large cyst of the left kidney compressing the renal collecting system. Indeterminate 3.3 cm cystic lesion of the pancreatic tail Discussed with urology ; to follow-up as outpatient. I discussed the finding with the patient's as well; answered questions and queries. Patient to follow-up with PCP and urology. Discussed regarding follow-up needed for cystic lesion in the pancreatic tail. Please note the above document was generated using voice recognition software. It may contain grammatical, syntax or spelling errors. Any formal questions or concerns about the content, text or information contained within the body of this dictation should be directly addressed to the provider for clarification Total Time Total Time Spent Total Time Spent (In Minutes): 45 Total Time Includes: Examination of the Patient, Discharge Planning, Medication Reconciliation, Communication With Other Providers and Other Discharge Plan Discharge Items Patient Disposition: Home - Self-Care Reason For Visit: WEAKNESS Discharge Diagnosis: COVID-19 infection Demand ischemia Gross hematuria Left kidney cyst Activity: Resume your previous activity Non-emergency contact: Primary Care Provider Call non-emergency contact if: you have any medication questions and your symptoms worsen Follow-up/Referrals: Hoda Guevara CRNP [Nurse Practitioner] - (The Urology office will contact you for a follow up appointment.) Jordana Hopkins, DO [Primary Care Provider] - (Date & Time 10/02/2023 11:00 AM Provider Edmund Mullins III, MD Department Family [facility] ) Diet: Regular Addtl Attending Provider Instructions: You were admitted to the hospital due to generalized weakness. The likely cause for it is COVID-19 infection. You were also found to have blood in your urine. CT abdomen and pelvis was done in September 25, 2023; you are found to have 9.0 x 6.5 cm cystic structure in the mid left kidney suggestive of a cyst. Also there were an additional cyst present. You were evaluated by urology during the hospitalization. They will call you with an appointment. You were also found to have 3.3 cm cyst in the pancreatic tail. Please follow- up with your primary care doctor and obtain GI referral for further workup. Your blood pressure was found to be on higher side during the hospitalization. Losartan 50 mg once a day is added to your medication regimen. Titration of the blood pressure medication to be done as outpatient. Pending Studies at Discharge: No Stand-Alone Forms: My [facility] [employer], Smoking Cessation Medications and DC Order Prescriptions: New losartan 50 mg Tablet 50 mg PO QAM Qty: 30 0RF Continued donepezil [Aricept] 10 mg tablet 10 mg PO QDD Rx Instructions: take with largest meal of day levothyroxine 88 mcg tablet 88 mcg PO DAILYBB nitroglycerin [Nitrostat] 0.4 mg Tablet, Sublingual 0.4 mg Sublingual UD PRN (Reason: Chest Pain) Rx Instructions: EVERY 5 MIN X 3 FOR CP finasteride [Proscar] 5 mg tablet 5 mg PO QAM memantine [Namenda] 10 mg tablet 10 mg PO BIDM levetiracetam [Keppra XR] 500 mg tablet extended release 24 hr 500 mg PO HS Rx Instructions: TAKE WITH 750 MG TABS levetiracetam [Keppra XR] 750 mg tablet extended release 24 hr 1,500 mg PO HS Rx Instructions: TAKE WITH 500 MG TAB amiodarone 200 mg Tablet 100 mg PO QAM Rx Instructions: 1/2 tablet dose cholecalciferol (vitamin D3) [Vitamin D3] 1,000 unit (25 mcg) Tablet 1,000 unit PO HS omeprazole 20 mg capsule,delayed release(DR/EC) 20 mg PO DAILYBB metoprolol succinate 100 mg tablet extended release 24 hr 100 mg PO QAM rosuvastatin 5 mg tablet 5 mg PO DAILY warfarin 5 mg tablet 2.5 - 5 mg PO DAILY Rx Instructions: as directed by coumadin clinic aspirin 81 mg Tablet,Delayed Release (Dr/Ec) 81 mg PO HS Discharge Orders: Discharge Order (Routine); Ordered 09/27/23 Ordered By: Chad Mcarthur Admission Data Admit Date/Time: 09/23/23 20:50 Attending Provider: Chad Mcarthur Admit Provider: Michelle Covarrubias Primary Care Provider: Jordana Hopkins Other Providers: Michelle Covarrubias; Barrington Coelho; Jarad Omer; [facility] Other Interventions: Discharge Summary Assessment (RN) Last Done: 09/27/23 12:23
== END 2023-09-27 14:14 | disposition home health service (06) | DRG 177 ==
LOC: ED 15:14 → SUATTDRO 20:50 → EDINP 20:50 → 2N 09-25 00:59
DX: M62.81 Muscle weakness (generalized); J81.1 Chronic pulmonary edema; Y92.019 Unspecified place in single-family (private) house as the place of occurrence of the external cause; I13.0 Hypertensive heart and chronic kidney disease with heart failure and stage 1 through stage 4 chronic kidney disease, or unspecified chronic kidney disease; Z66 Do not resuscitate; N40.1 Benign prostatic hyperplasia with lower urinary tract symptoms; R31.0 Gross hematuria; Z91.041 Radiographic dye allergy status; N28.1 Cyst of kidney, acquired; U07.1 COVID-19; Z79.82 Long term (current) use of aspirin; I24.89 Other forms of acute ischemic heart disease; G40.909 Epilepsy, unspecified, not intractable, without status epilepticus; S99.922A Unspecified injury of left foot, initial encounter; E78.5 Hyperlipidemia, unspecified; I25.2 Old myocardial infarction; E03.9 Hypothyroidism, unspecified; Z79.01 Long term (current) use of anticoagulants; N18.30 Chronic kidney disease, stage 3 unspecified; W19.XXXA Unspecified fall, initial encounter; I25.10 Atherosclerotic heart disease of native coronary artery without angina pectoris; Y99.8 Other external cause status; I49.5 Sick sinus syndrome; Z79.890 Hormone replacement therapy; G30.9 Alzheimer's disease, unspecified; E87.6 Hypokalemia; Z79.899 Other long term (current) drug therapy; Z86.718 Personal history of other venous thrombosis and embolism; Z95.0 Presence of cardiac pacemaker; K21.9 Gastro-esophageal reflux disease without esophagitis; F02.811 Dementia in other diseases classified elsewhere, unspecified severity, with agitation; G93.41 Metabolic encephalopathy; I47.20 Ventricular tachycardia, unspecified; Z95.5 Presence of coronary angioplasty implant and graft; Z91.130 Patient's unintentional underdosing of medication regimen due to age-related debility; I50.9 Heart failure, unspecified; R32 Unspecified urinary incontinence

== ENCOUNTER 2024-08-23 23:42 | Inpatient (IN) ==
--- OUTSIDE RECORDS SUMMARY | 2024-08-23 23:50 | External Medical Summary | Summary of Care ---
Author Name Unknown Organization [facility] Address [address] [place] [address] Phone [phone] Care Team Providers Care Traffic Ii Manager Name Role Phone Jordana Hopkins DO Primary Care Provider Reason for Visit * Reason Onset Date Comments Medication Question 04/17/2024 Encounter Details Date Type Department Care Team (Late st Contact Info) Description 04/17/2024 Telephone Cardiology, [facility] [address] [facility] [place] [phone] Tristen Otto PA-C [address] [facility], [place] [phone] Medication Question Allergies Active Allergy Reactions Criticality Noted Date Comments Iodinated Contrast Media 12/15/2010 documented as of this encounter (statuses as of 07/17/2024) Medications Medication Sig Dispensed Refills Start Date End Date Status nitroglycerin (NITROSTAT) 0.4 MG SUBLIndications:Spe cial screening for malignant neoplasms, colon Place 1 Tab under the tongue every 5 minutes as needed for Pain, Chest. Every 5 minutes x 3 for chest pain. 10 Tab 5 02/11/2018 Active Levothyroxine Sodium 88 MCG Oral Tablet (Levoxyl)Indication s:Hypothyroidism, unspecified type TAKE 1 TABLET BY MOUTH ONCE DAILY IN THE MORNING (AT LEAST 30 MINUTES PRIOR TO BREAKFAST OR OTHER MEDICATIONS) 90 Tablet 3 08/22/2023 Active Cetirizine HCl 10 MG Oral Tablet Chewable (ZyrTEC) Take 1 Tablet by mouth in the morning. Active Polyethylene Glycol 3350 17 GM Oral Packet (MiraLax) Take 1 Packet by mouth in the morning. Active levETIRAcetam ER 750 MG Oral Tablet Extended Release 24 Hour (Keppra XR) Take 2 Tablets by mouth at bedtime. 180 Tablet 1 03/21/2024 Active levETIRAcetam ER 500 MG Oral Tablet Extended Release 24 Hour (Keppra XR) TAKE 1 TABLET BY MOUTH AT BEDTIME ALONG WITH 750MG TABLETS 90 Tablet 1 03/21/2024 Active Donepezil HCl 10 MG Oral Tablet (Aricept)Indication s:Memory loss Take 1 Tablet by mouth in the morning. Take with largest meal of the day.. 90 Tablet 03/21/2024 Active Additional Information Patient not taking.Reported on 06/12/2024 Rosuvastatin Calcium 5 MG Oral Tablet (Crestor)Indication s:Dyslipidemia, goal LDL below 70 Take 1 Tablet by mouth in the morning. 90 Tablet 3 03/21/2024 Active Metoprolol Succinate ER 100 MG Oral Tablet Extended Release 24 Hour (toPROL XL)Indications:HTN, goal below 140/90,Nonsustained ventricular tachycardia (HCC) Take 1 Tablet by mouth daily. 90 Tablet 03/21/2024 Active Omeprazole 20 MG Oral Capsule Delayed Release (PriLOSEC)Indicatio ns:Dysphagia, unspecified type Take 1 Capsule by mouth in the morning. 1 hour before the first meal of the day. 90 Capsule 1 03/21/2024 Active Finasteride 5 MG Oral Tablet (Proscar)Indication s:BPH with obstruction/lower urinary tract symptoms Take 1 Tablet by mouth in the morning. 90 Tablet 3 03/21/2024 Active Losartan Potassium 50 MG Oral Tablet (Cozaar)Indications :HTN, goal below 140/90 Take 1 Tablet by mouth in the morning. 90 Tablet 03/21/2024 Active Amiodarone HCl 200 MG Oral Tablet (Cordarone)Indicati ons:Nonsustained ventricular tachycardia (HCC) Take 0.5 Tablets by mouth daily with breakfast. 45 Tablet 3 03/21/2024 Active documented as of this encounter (statuses as of 07/17/2024) Active Problems Problem Noted Date Diagnosed Date Atherosclerotic heart diseas e of [place] coronary artery with other forms of angina [...] as of this encounter (statuses as of 07/17/2024) Resolved Problems Problem Noted Date Diagnosed Date [...] as of this encounter (statuses as of 07/17/2024) Immunizations Name Administration Dates Next Due COVID-19 mRNA, LNP-s, No Pre serve, 2-Dose Series (Moderna) 05/11/2022,07/29/2021,11/23/2020,10/20 H1N1 2009 Influenza, IM 02/03/2010 Pneumococcal Conjugate Vacc, 13 Valent (Prevnar) 02/05/2015 Pneumococcal Polysaccharide PPV23 (Pneumovax) 01/10/2013 Season Influenza, Quad, PF, Adjuvanted, 65+ Yrs, IM (FLUAD) 07/13/2020 Seasonal Influenza Vac., MDV , IM, 0.5 mL (Fluzone) 09/18/2014,07/17/2013,06/28/2012,07/14,07/14/2009,07/08/2007,09/10/2006 Seasonal Influenza Virus Vac cine, Unspecified Formulation 07/13/2020,06/23/2019,08/09/2011,08/13,07/31/2005,08/16/2004,07/17/2003 ,07/25/2000 Seasonal Influenza, PF, 6 M & above, IM , (FluLaval or Fluzone) 08/06/2018,06/20/2017 Seasonal Influenza, Quadriva lent Hd (Fluzone Hd) 07/02/2023,07/07/2022,06/15/2021 Seasonal Influenza, Quadriva lent, No Preserve, IM 06/26/2016,06/28/2015 Seasonal Influenza, Trivalen t, Adjuvanted, 65+ YRS, PF, (Fluad) 06/23/2019 TDAP, Age 7 and older, IM (Adacel) 09/29/2011 Varicella Zoster Vaccine (Adult) 01/30/2018,11/22 Zoster Vaccine Recombinant (Shingrix) 07/08/2018 ,02/06/2018 documented as of this encounter Social History Tobacco Use Types Packs/Day Years Used Date Smoking Tobacco: Never Passive Smoke Exposure: Never Smokeless Tobacco: Never Alcohol Use Standard Drinks/Week Comments Not Currently 0 (1 standard drink = 0.6 oz pur e alcohol) PHQ-2 Answer Date Recorded PHQ Adult Total Score 0 10/01/2023 Hunger Vital Sign Answer Date Recorded Within the past 12 months, y ou worried that your food would run out before you got the money to buy more. Never true 10/01/19 24 Within the past 12 months, t he food you bought just didn't last and you didn't have money to get more. Never true 10/01/2023 Childcare Answer Date Recorded Do you feel overwhelmed with taking care of a child, family member or friend? No 10/01/2023 Does your family need help f inding childcare? (Household - for ages 0-17 years) Not on file 10/01/2023 Clothing Answer Date Recorded Have you been unable to get clothing when it was really needed? No 10/01/2023 Is your family able to get c lothes or diapers when needed? (Household - for ages 0-17 years) Not on file 10/01/2023 Personal Safety Answer Date Recorded Do you feel unsafe or have concerns for your saf ety? No 10/01/2023 Do you have concerns for you r family's safety? (Household - for ages 0-17 years) Not on file 10/01/2023 Utilities Answer Date Recorded Do you have trouble paying y our heating, water, or electric bill? No 10/01/2023 Is your family able to pay t he heat, water, or electric bill? (Household - for ages 0-17 years) Not on file 10/01/2023 Does your family have access to good internet? (Household - for ages 0-17 years) Not on file 10/01/2023 Employment Status Answer Date Recorded Are you unemployed or without regular income? No 10/01/2023 Does the household have a re gular source of income? (Household - for ages 0-17 years) Not on file 10/01/2023 Social Connections Answer Date Recorded How often do you feel lonely or isolated from th ose around you? Never 10/01/2023 Financial Resource Strain Answer Date R ecorded Do you have any trouble payi ng for your medications, or do you think you might in the future? No 10/01/2023 Does your family have troubl e paying for medicine? (Household - for ages 0-17 years) Not on file 10/01/2023 Transportation Needs Answer Date Record ed READ ONLY Do you have troubl e getting a ride to medical visits or work? Never True 10/01/2023 Does your family have a hard time getting a ride to doctors visits? (Household - for ages 0-17 years) Not on file 10/01/2023 Has lack of transportation k ept you from medical appointments, meetings, work, or from getting things needed for daily living? Check all that apply. (Adult - for ages 18 years and over) Not on file 10/01/2023 Do you (or your family) have trouble finding or paying for a ride (transportation)? (Household - for ages 0-17 years) Not on file 10/01/2023 Housing Stability Answer Date Recorded Do you currently live in a s helter or have no steady place to sleep at night? No 10/01/2023 READ ONLY Do you think you a re at risk of becoming homeless? No 10/01/2023 Does your family worry about paying for your home or becoming homeless? (Household - for ages 0-17 years) Not on file 0 10/01/2023 Are you homeless or worried that you might be in the future? (Adult - for ages 18 years and over) Not on file Are you (or your family) karen eless or worried that you might be in the future? (Household - for ages 0-17 years) Not on file Food Insecurity Answer Date Recorded Do you need food for this week? No 10/01/2023 Are you able to get enough f ood for your family? (Household - for ages 0-17 years) Not on file 10/01/2023 Does your family need food t his week? (Household - for ages 0-17 years) Not on file 10/01/2023 Do you always have enough fo od for your family? (Household - for ages 0-17 years) Not on file 10/01/2023 Sex and Gender Information Value Date Recorded Sex Assigned at Not on file Gender Identity Not on file Sexual Orientation Not on file Job Start Date Occupation Industry Not on file Not on file Not on file documented as of this encounter Miscellaneous Notes * Telephone Encounter - Hoda Abraham CMA - 04/17/2024 1:42 PM EDT Faxed successfully. * Telephone Encounter - Tristen Otto PA-C - 04/17/2024 1:12 PM EDT Risks and benefits of anticoagulation discussed with patient and during office visit earlier today. Risks of anticoagulation felt to be greater than the benefit. Recommend observation off of anticoagulation. Okay to discontinue Coumadin from a cardiac standpoint. Tristen Otto PA-C Department of Cardiology * Telephone Encounter - Elinor Domingo OSA - 04/17/2024 11:47 AM EDT Person calling: Tito Relationship to patient: Elaine Borja Number to return call: [phone] Reason for call(brief): fax order Pharmacy: na Provider Name: Tristen Otto Detailed message to office: Requesting order to be faxed to [phone] * Telephone Encounter - Barry Reynaga OSA - 04/17/2024 10:52 AM EDT Patient checked out, and asked me about patients Coumadin. She stated that Tristen was stopping the Coumadin, and Elaine Borja will need an order to be sent so they can discontinue the Coumadin. Please advise, and if there is any questions, call . documented in this encounter Plan of Treatment Upcoming Encounters Date Type Department Care Team (Late st Contact Info) Description 07/22/2024 1:45 PM EDT Office Visit Urology, [facility] [address] [place] [address] Wili Mckeon MD [address] [place] [phone] 10/24/2024 1:30 PM EST Office Visit Cardiology, [facility] [address] [facility] [place] [address] Tristen Otto PA-C [address] [place] [id number] 12/11/2024 3:40 PM EDT Office Visit Neurology [facility] [address] [facility] [place] [address] Tonja Rivas MD [address] [facility] [place] [address] Health Maintenance Due Date Last Done Comments Albumin/Creatinine Ratio 12/03/2019 019, 03/14/2016, 08/09/2011, Additional history exists DTap/Tdap Vaccines (2 - Td or Tdap) 09/29/2021 09/29/2011, 09/05/1999 Adult Wellness Visit 01/23/2023 01/23/2022 COVID-19 Vaccine ( season) 2024 08/06/2023, 08/02/2022, 05/11/2022, Additional history exists Influenza Vaccine (FLU shot) (#1) 2024 07/02/2023, 07/07/2022, 06/15/2021, Additional history exists Depression Screening 10/01/2024 10/01/2023 CKD PHOS USE SMARTSET 50115 03/14/2025 06/2 09/2023, 12/02/2018, 03/14/2016, Additional history exists CKD HGB USE SMARTSET 44904 05/02/202505/02, 03/14/2024, 05/23/2023, Additional history exists TSH 05/02/2025 05/02/2024, 04/26, 05/10/2022, Additional history exists Pneumococcal Vaccine: 65+ Years Completed 02/05/2015, 01/10/2013, 09/09/2001 Zoster Vaccines Completed 07/08/2018, 01/22, 01/30/2018, Additional history exists HPV (Gardasil) Vaccine Aged Out No lo nger eligible based on patient's age to complete this topic Hepatitis B Vaccine Aged Out No longe r eligible based on patient's age to complete this topic MENINGOCOCCAL (MENACTRA/MENVEO) Aged Out No longer eligible based on patient's age to complete this topic documented as of this encounter Medical Devices Not on filedocumented as of this encounter Advance Directives Documents on File Type Date Recorded Patient Clinical Business Manager Expl anation Advance Directives and Living Will 07/16/2017 LIVING WILL Power of Bottle Labeler 07/16/2017 POWER OF A TTORNEY DURABLE HEALTH CARE POA Healthcare Agents on File Name Relationship Healthcare Agent Relationshi p Communication Shelly Story Spouse Health Care Agen t (per Health Care Power of Bottle Labeler document) Care Teams Traffic Ii Manager Relationship Specialty Start Date End Date Jordana Hopkins DO [address] [place] [address] PCP - General Family Medicine 03/05/17 documented as of this encounter
--- OUTSIDE RECORDS SUMMARY | 2024-08-23 23:50 | External Medical Summary | Summary of Care ---
Author Name Unknown Organization [facility] Address [address] [place] [address] Phone [phone] Care Team Providers Care Liquor Tester Name Role Phone Jordana Hopkins DO Primary Care Provider Reason for Visit * Reason Comments Outpatient Testing Encounter Details Date Type Department Care Team (Late st Contact Info) Description 06/21/2024 10:20 AM EDT Laboratory Laboratory, [facility] [address] [place] [address] Amarjit, Specimen Drop Off [facility] [address] [place] [address] Urinary tract infection Allergies Active Allergy Reactions Criticality Noted Date Comments Iodinated Contrast Media 12/15/2010 documented as of this encounter (statuses as of 06/21/2024) Medications Medication Sig Dispensed Refills Start Date [...] BEDTIME ALONG WITH 750MG TABLETS 90 Tablet 03/21/2024 Active Donepezil HCl 10 MG Oral [...] in the morning. 90 Tablet 03/21/2024 Active Losartan Potassium 50 MG Oral Tablet (Cozaar)Indications :HTN, goal below 140/90 Take 1 Tablet by mouth in the morning. 90 Tablet 03/21/2024 Active Amiodarone HCl 200 MG Oral Tablet (Cordarone)Indicati ons:Nonsustained ventricular tachycardia (HCC) Take 0.5 Tablets by mouth daily with breakfast. 45 Tablet 03/21/2024 Active Aspirin 81 MG Oral Capsule Take by mouth. Active Mirtazapine 30 MG Oral Tablet (Remeron) Take 1 Tablet by mouth at bedtime. Active Donepezil HCl 10 MG Oral Tablet (Aricept) 1/2 tab once a day for 1 week then discontinue 7 Tablet 06/12/2024 Active documented as of this encounter (statuses as of 06/21/2024) Active Problems Problem Noted Date Diagnosed Date Atherosclerotic heart diseas e of [place] coronary artery with other forms of angina [...] as of this encounter (statuses as of 06/21/2024) Resolved Problems Problem Noted Date Diagnosed Date [...] as of this encounter (statuses as of 06/21/2024) Immunizations Name Administration Dates Next Due COVID-19 [...] Preserve, IM 06/26/2016,06/28/2015 Seasonal Influenza, Trivalen t, (IIV3), with Preserv, (Fluzone) 09/18/2014,07/17/2013,06/28/2012,07/14,07/14/2009,07/08/2007,09/10/2006 Seasonal Influenza, Trivalen t, Adjuvanted, 65+ YRS, [...] 07/22/2024 1:45 PM EDT Office Visit Urology, [facility] [address] [place] [address] Wili Mckeon MD [address] [facility] [place] [address] 10/24/2024 1:30 PM EST Office Visit Cardiology, [facility] [address] [place] [address] Tristen Otto PA-C [address] [place] [address] 12/11/2024 3:40 PM EDT Office Visit Neurology [facility] [address] [place] [address] Tonja Rivas MD [address] [place] [address] Pending Results Name Type Priority Associated Diagnoses Date /Time CULTURE, URINE, QUANTITATIVE Lab Routine Urinary tract infection 06/21/2024 10:26 AM EDT Health Maintenance Due Date Last [...] Screening 10/01/2024 10/01/2023 CKD PHOS USE SMARTSET 80515 03/14/2025 0609/2023, 12/02/2018, 03/14/2016, Additional history exists CKD HGB USE SMARTSET 47027 05/02/202505/02, 03/14/2024, 05/23/2023, Additional history exists TSH [...] Procedure Name Priority Date/Time Associated Diagnosis Comments MICROSCOPIC EXAM, URINE Routine 06/21/2024 10:26 AM EDT Urinary tract infection URINALYSIS, REFLEX TO MICROSCOPIC Routine 06/21/2024 10:26 AM EDT Urinary tract infection documented in this encounter Results * (ABNORMAL) MICROSCOPIC EXAM, URINE (06/21/2024 10:26 AM EDT) RBC, Urine 0-2 0 - 2 /HPF 06/21/2024 10:41 AM EDT LAB[facility] 57-10 WBC, Urine 0-2 0 - 2 /HPF 06/21/2024 10:41 AM EDT [facility] 57-10 Bacteria, Urine 0-25 0 - 25 /HPF 06/21/2024 10:41 AM EDT LAB[facility] 57-10 Amorphous Crystals, Urine Many(A) None /HPF 06/21/2024 10:41 AM EDT [facility] Urine Urine specimen obtained by clean catch procedure / Unknown Non-blood Collection / Unknown 06/21/2024 10:26 AM EDT 06/21/2024 10:26 AM EDT Jade [facility] [address] [address] * (ABNORMAL) URINALYSIS, REFLEX TO MICROSCOPIC (06/21/2024 10:26 AM EDT) Color, Urine Yellow Light Yellow, Yellow, Dark Yellow 06/21/2024 10:41 AM EDT LAB[facility]ATORY [place] [address] Clarity, Urine Cloudy(A) Clear 06/21/2024 10:41 AM EDT [facility] Glucose, Urine Negative Negative mg/dL 06/21/2024 10:41 AM EDT LABORATORY [place] [address] Bilirubin, Urine Negative Negative 06/21/2024 10:41 AM EDT LAB[facility]ATORY [place] [address] Ketone, Urine 15(A) Negative mg/dL 06/21/2024 10:41 AM EDT LAB[facility]ORY [facility] 5710 Specific [place], Urine 1.025 1.003 - 1.030 06/21/2024 10:41 AM EDT LAB[facility] 57-10 Blood, Urine Negative Negative 06/21/2024 10:41 AM EDT LAB[facility]ORY [facility] 5710 pH, Urine 5.5 5.0 - 7.5 Units 06/21/2024 10:41 AM EDT LAB[facility]ORY [facility] 5710 Protein, Urine Negative Negative mg/dL 06/21/2024 10:41 AM EDT LABORATORY [place] 57-10 Urobilinogen, Urine 0.2 0.2, 1.0 mg/dL 06/21/2024 10:41 AM EDT LABORATORY [place] 57-10 Nitrite, Urine Negative Negative 06/21/2024 10:41 AM EDT LABORATORY [place] 57-10 Esterase, Urine Negative Negative 06/21/2024 10:41 AM EDT LAB[facility]ATORY [place] 57-10 Urine Urine specimen obtained by clean catch procedure / Unknown Non-blood Collection / Unknown 06/21/2024 10:26 AM EDT 06/21/2024 10:26 AM EDT Jade Hussein Arnel [facility]ALE[facility] 57-10 [address] [facility] [place] [address] documented in this encounter Visit Diagnoses Diagnosis Urinary tract infection Urinary tract infection, site not specified documented in this encounter Advance Directives Documents on File Type Date Recorded Patient Etl Data Architect Expl anation Advance Directives and Living Will 07/16/2017 LIVING WILL Power of Career Technical Counselor 07/16/2017 POWER OF A T[place] DURABLE HEALTH CARE POA Healthcare Agents on File Name Relationship Healthcare Agent Relationshi p Communication Shelly Story Spouse Health Care Agen t (per Health Care Power of Career Technical Counselor document) Care Teams Liquor Tester Relationship Specialty Start Date End Date Jordana Hopkins DO [address] [place], [place] [address] PCP - General Family Medicine 03/05/17 documented as of this encounter
--- OUTSIDE RECORDS SUMMARY | 2024-08-23 23:50 | External Medical Summary | Summary of Care ---
Author Name Unknown Organization [facility] Address [address] [place] [address] Phone [phone] Care Team Providers Care Leather Products Supervisor Name Role Phone Jordana Hopkins DO Primary Care Provider Reason for Visit * Reason Onset Date Comments Pacemaker Clinic 08/19/2024 Encounter Details Date Type Department Care Team (Late st Contact Info) Description 08/19/2024 Telephone Cardiology, [facility] [address] [place] [address] [facility] [address] [place] [address] Pacemaker Clinic Allergies Active Allergy Reactions Criticality Noted Date Comments Iodinated Contrast Media 12/15/2010 documented as of this encounter (statuses as of 08/19/2024) Medications nitroglycerin (NITROSTAT) 0.4 MG SUBLIndications: Special screening for malignant neoplasms, colon Place 1 Tab under the tongue every 5 minutes as needed for Pain, Chest. Every 5 minutes x 3 for chest pain. 10 Tab 5 8 Active Levothyroxine Sodium 88 MCG Oral Tablet (Levoxyl)Indicat ions:Hypothyroid ism, unspecified type TAKE 1 TABLET BY MOUTH ONCE DAILY IN THE MORNING (AT LEAST 30 MINUTES PRIOR TO BREAKFAST OR OTHER MEDICATIONS) 90 Tablet 3 3 Active Cetirizine HCl 10 MG Oral Tablet Chewable (ZyrTEC) Take 1 Tablet by mouth in the morning. Active Polyethylene Glycol 3350 17 GM Oral Packet (MiraLax) Take 1 Packet by mouth in the morning. Active levETIRAcetam ER 750 MG Oral Tablet Extended Release 24 Hour (Keppra XR) Take 2 Tablets by mouth at bedtime. 180 Tablet 1 4 Active levETIRAcetam ER 500 MG Oral Tablet Extended Release 24 Hour (Keppra XR) TAKE 1 TABLET BY MOUTH AT BEDTIME ALONG WITH 750MG TABLETS 90 Tablet 1 4 Active Donepezil HCl 10 MG Oral Tablet (Aricept)Indicat ions:Memory loss Take 1 Tablet by mouth in the morning. Take with largest meal of the day.. 90 Tablet 4 Active Additional Information Patient not taking.Reported on 06/12/2024 Rosuvastatin Calcium 5 MG Oral Tablet (Crestor)Indicat ions:Dyslipidemi a, goal LDL below 70 Take 1 Tablet by mouth in the morning. 90 Tablet 3 4 Active Metoprolol Succinate ER 100 MG Oral Tablet Extended Release 24 Hour (toPROL XL)Indications:H TN, goal below 140/90,Nonsustai zully ventricular tachycardia (HCC) Take 1 Tablet by mouth daily. 90 Tablet 3 4 Active Omeprazole 20 MG Oral Capsule Delayed Release (PriLOSEC)Indica tions:Dysphagia, unspecified type Take 1 Capsule by mouth in the morning. 1 hour before the first meal of the day. 90 Capsule 1 4 Active Finasteride 5 MG Oral Tablet (Proscar)Indicat ions:BPH with obstruction/lowe r urinary tract symptoms Take 1 Tablet by mouth in the morning. 90 Tablet 3 4 Active Losartan Potassium 50 MG Oral Tablet (Cozaar)Indicati ons:HTN, goal below 140/90 Take 1 Tablet by mouth in the morning. 90 Tablet 3 4 Active Amiodarone HCl 200 MG Oral Tablet (Cordarone)Indic ations:Nonsustai zully ventricular tachycardia (HCC) Take 0.5 Tablets by mouth daily with breakfast. 45 Tablet 3 4 Active Aspirin 81 MG Oral Capsule Take by mouth. Ac tive Mirtazapine 30 MG Oral Tablet (Remeron) Take 1 Tablet by mouth at bedtime. Active Donepezil HCl 10 MG Oral Tablet (Aricept) 1/2 tab once a day for 1 week then discontinue 7 Tablet 4 Active documented as of this encounter (statuses as of 08/19/2024) Active Problems Problem Noted Date Diagnosed Date Atherosclerotic heart diseas e of [place] coronary artery with other forms of angina [...] 02/17/2015 DYSLIPIDEMIA, GOAL LDL BELOW 100 09/02/2009 Overview (09/02/2009): Per Lipid Taxonomy. HTN, GOAL BELOW 140/90 08/11/2009 Overview (08/11/2009): Modified per HTN protocol #16. Actinic keratosis 05/07/2002 CHR ISCHEMIC HRT DIS NOS 01/03/2000 Overview (03/13/2006): Angioplasty in 1999 Other seborrheic keratosis 04/12/1999 Elevated prostate specific antigen (PSA) 992 SENSORNEUR HEAR LOSS NOS - right documented as of this encounter (statuses as of 08/19/2024) Resolved Problems Problem Noted Date Diagnosed Date Resolved Date Acute deep vein thrombosis ( DVT) of left upper extremity 11/28/2018 07/26/2019 Near syncope 09/23/2018 06/27/2019 Overview (06/27/2019): ACUTE Bradycardia 09/07/2015 03/19/2018 Hypertensive kidney disease with chronic kidney disease stage III 07/05/2015 08/05/2020 Overview: Per CKD protocol #1 ADVANCE DIRECTIVE INFORMATION 02/10/2010 01/15/2017 Overview (04/10/2005): Yes, Copy scanned at patient level in the electronic medical record.(Go to Action, Patient File to view) Patient aware they must notify their healthcare provider of changes. Special screening for malign ant neoplasms, colon 03/13/2006 07/17/2017 Overview (03/13/2006): Colonoscopy in 2003 ABN FIND-STOOL CONTENTS - po sitive hemacults x 3 09/11/1999 12/02/2018 Mixed dyslipidemia 01/14/1992 9 Overview (09/02/2009): Per Lipid Taxonomy. HYPERTENSION NOS 08/12/2009 Overview (08/12/2009): Modified per HTN protocol #16. 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 documented in this encounter Plan of Treatment Upcoming Encounters Date Type Department Care Team (Late st Contact Info) Description 10/24/2024 1:30 PM EST Office Visit Cardiology, [facility] [address] [address] Tristen Otto PA-C [address] [address] 12/11/2024 3:40 PM EDT Office Visit Neurology [facility] [address] [place] [address] Tonja Rivas MD [address] [place] [address] Health Maintenance Due Date Last Done Comments Albumin/Creatinine Ratio 12/03/2019 019, 03/14/2016, 08/09/2011, Additional history exists DTap/Tdap Vaccines (2 - Td or Tdap) 09/29/2021 09/29/2011, 09/05/1999 Adult Wellness Visit 01/23/2023 01/23/2022 COVID-19 Vaccine ( season) 2024 08/06/2023, 08/02/2022, 05/11/2022, Additional history exists Influenza Vaccine (FLU shot) (#1) 2024 07/02/2023, 07/07/2022, 06/15/2021, Additional history exists Depression Screening 10/01/2024 10/01/2023 CKD PHOS USE SMARTSET 55612 03/14/2025 06/09/2023, 12/02/2018, 03/14/2016, Additional history exists CKD HGB USE SMARTSET 68514 05/02/202505/02, 03/14/2024, 05/23/2023, Additional history exists TSH [...] Documents on File Type Date Recorded Patient Rn Lpn Lvn Expl anation Advance Directives and Living Will 07/16/2017 LIVING WILL Power of Motorized Squad Captain 07/16/2017 POWER OF A TTORNEY DURABLE HEALTH CARE POA Healthcare Agents on File Name Relationship Healthcare Agent Relationshi p Communication Shelly tSory Spouse Health Care Agen t (per Health Care Power of Motorized Squad Captain document) Care Teams Leather Products Supervisor Relationship Specialty Start Date End Date Jordana Hopkins DO [address] [place] [address] PCP - General Family Medicine 03/05/17 documented as of this encounter
--- OUTSIDE RECORDS SUMMARY | 2024-08-23 23:50 | External Medical Summary | Summary of Care ---
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 90 Capsule 03/21/2024 Active Finasteride 5 MG Oral Tablet (Proscar)Indicat [...] week then discontinue 7 Tablet 06/12/2024 Active Warfarin Sodium 5 MG Oral Tablet (Coumadin)Indica tions:History of DVT (deep vein thrombosis) Take 0.5 to 1 tab by mouth once daily as directed by Coumadin Clinic. 90 Tablet 3 08/22/2023 4 Discontinued QUEtiapine Fumarate 25 MG Oral Tablet (SEROquel) 1/2 at bedtime when instructed to start 30 Tablet 2 03/17/2024 4 Discontinued Memantine HCl 10 MG Oral Tablet (Namenda) Take 1 Tablet by mouth 2 times a day with morning and evening meals. 180 Tablet 1 03/21/2024 4 Discontinued documented as of this encounter (statuses as of 06/12/2024) Active Problems Problem Noted Date Diagnosed Date Atherosclerotic heart diseas e of [place] coronary artery with other forms of angina [...] as of this encounter (statuses as of 06/12/2024) Resolved Problems Problem Noted Date Diagnosed Date [...] as of this encounter (statuses as of 06/12/2024) Immunizations Name Administration Dates Next Due COVID-19 [...] 10/01/2023 Does the household have a re lar source of income? (Household - for ages [...] Sign Reading Time Taken Comments Blood Pressure 130/68 06/12/2024 2:20 PM EDT Pulse 60 06/12/2024 2:20 PM EDT Temperature 35.8 C (96.5 F) 06/12/2024 2 :20 PM EDT Respiratory Rate - - Oxygen Saturation 97% 06/12/2024 2:2 0 PM EDT Inhaled Oxygen Concentration - - Weight 71.6 kg (157 lb 12.8 oz) 06/12/2024 2:20 PM EDT wt taken by facility, pt unable to stand Height - - Body Mass Index 22.64 11/07/2023 8:01 AM EST documented in this encounter Progress Notes * Tonja Rivas MD - 06/12/2024 3:16 PM EDT CLINIC NOTES Neurology [place] [address] [facility] [place] [address] Isabela Story : 1935 NEUROLOGY OUTPATIENT NOTE 06/12/2024 HISTORY: The patient is referred for consultation by Dr. Hopkins, who will be receiving a copy of this note. 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 He is off memantine. He continues to take Keppra. He has lost 40 or more lb over the last several. Psychiatry is seeing him, Dr. Khai Foster. His indicates he is considering changing him to a different anticonvulsant that might have some effect on mood. He spends much of the time sleeping sleep at night is still problematic he has more bad days than good days Past Medical History: Diagnosis Date Benign neoplasm of colon 12/2010 6 mm polyp removed; f/u scope in 5 years Chronic ischemic heart disease 01/03/2000 Angioplasty in 1999 HTN, goal to be determined Mixed dyslipidemia Sensorineural hearing loss 1984 S/P ear surgery Special screening for malignant neoplasms, colon 03/13/2006 Colonoscopy in 02/2003 Patient Active Problem List Diagnosis Elevated prostate specific antigen (PSA) Other seborrheic keratosis CHR ISCHEMIC HRT DIS NOS Actinic keratosis SENSORNEUR HEAR LOSS NOS - right HTN, GOAL BELOW 140/90 DYSLIPIDEMIA, GOAL LDL BELOW 100 History of basal cell carcinoma Cardiac pacemaker in situ Sinus node dysfunction (HCC) Benign prostatic hyperplasia with lower urinary tract symptoms Seizure disorder, simple partial, 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) Alzheimer's dementia without behavioral disturbance (HCC) 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 benton COLONOSCOPY W/ LESION REMOVAL, SNARE 01/18/11 6 mm polyp removed; f/u scope in 5 years COLONOSCOPY, DIAGNOSTIC (RECTUM) 07/08/2019 normal/[facility] CORONARY ARTERY DILATION, BALLOON 2000 REPAIR INITIAL INGUINAL HERNIA REDUCIBLE AGE 5 OR MORE 1961 SKIN CANCER EDU. 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 (Adult - for ages 18 years and over): No Does your family have trouble paying for medicine? (Household - for ages 0-17 years): Not on file Food Insecurity: No Food Insecurity (10/01/2023) Food Insecurity Do you need food for this week? (Adult - for ages 18 years and over): No Are you able to get enough food for your family? (Household - for ages 0-17 years): Not on file Does your family need food this week? (Household - for ages 0-17 years): Not on file Do you always have enough food for your family? (Household - for ages 0-17 years): Not on file Transportation Needs: No Transportation Needs (10/01/2023) Transportation Needs Do you have trouble getting a ride to medical visits or work? (Adult - for ages 18 years and over):Never True Does your family have a hard time getting a ride to doctors visits? (Household - for ages 0-17 years): Not on file Has lack of transportation kept you from medical appointments, meetings, work, or from getting things needed for daily living? Check all that apply. (Adult - for ages 18 years and over): Not on file Do you (or your family) have trouble finding or paying for a ride (transportation)? (Household - for ages 0-17 years): Not on file Social Connections: Socially Integrated (10/01/2023) Social Connections How often do you feel lonely or isolated from those around you? (Adult - for ages 18 years and over): Never Housing Stability: Low Risk (10/01/2023) Housing Stability Do you currently live in a snf or have no steady place to sleep at night? (Adult - for ages 18 years and over): No Do you think you are at risk of becoming homeless? (Adult - for ages 18 years and over): No Does your family worry about paying for your home or becoming homeless? (Household - for ages 0-17 years): Not on file Are you homeless or worried that you might be in the future? (Adult - for ages 18 years and over): Not on file Are you (or your family) homeless or worried that you might be in the future? (Household - for ages0-17 years): Not on file Family History Problem Relation Name Age of Onset Neurological Disorder Father CVA, HBP age 52 Mental Disorder Mother dementia Heart Disorder Mother post op NM No Past Hx Son No Past Hx Son No Past Hx Son No Past Hx Daughter Current Outpatient Medications Medication Sig Dispense Refill nitroglycerin (NITROSTAT) 0.[address] 1 Tab under the tongue every 5 minutes as needed for Pain, Chest. Every 5 minutes x 3 for chest pain. 10 Tab 5 Levothyroxine Sodium 88 MCG Oral Tablet (Levoxyl) TAKE 1 TABLET BY MOUTH ONCE DAILY IN THE MORNING (AT LEAST 30 MINUTES PRIOR TO BREAKFAST OR OTHER MEDICATIONS) 90 Tablet 3 Cetirizine HCl 10 MG Oral Tablet Chewable (ZyrTEC) Take 1 Tablet by mouth in the morning. Polyethylene Glycol 3350 17 GM Oral Packet (MiraLax) Take 1 Packet by mouth in the morning. levETIRAcetam ER 750 MG Oral Tablet Extended Release 24 Hour (Keppra XR) Take 2 Tablets by mouth atbedtime. 180 Tablet 1 levETIRAcetam ER 500 MG Oral Tablet Extended Release 24 Hour (Keppra XR) TAKE 1 TABLET BY MOUTH AT BEDTIME ALONG WITH 750MG TABLETS 90 Tablet 1 Rosuvastatin Calcium 5 MG Oral Tablet (Crestor) Take 1 Tablet by mouth in the morning. 90 Tablet 3 Metoprolol Succinate ER 100 MG Oral Tablet Extended Release 24 Hour (toPROL XL) Take 1 Tablet by mouth daily. 90 Tablet 3 Omeprazole 20 MG Oral Capsule Delayed Release (PriLOSEC) Take 1 Capsule by mouth in the morning. 1 hour before the first meal of the day. 90 Capsule 1 Finasteride 5 MG Oral Tablet (Proscar) Take 1 Tablet by mouth in the morning. 90 Tablet 3 Losartan Potassium 50 MG Oral Tablet (Cozaar) Take 1 Tablet by mouth in the morning. 90 Tablet 3 Amiodarone HCl 200 MG Oral Tablet (Cordarone) Take 0.5 Tablets by mouth daily with breakfast. 45 Tablet 3 Aspirin 81 MG Oral Capsule Take by mouth. Mirtazapine 30 MG Oral Tablet (Remeron) Take 1 Tablet by mouth at bedtime. Donepezil HCl 10 MG Oral Tablet (Aricept) 1/2 tab once a day for 1 week then discontinue 7 Tablet 0 Donepezil HCl 10 MG Oral Tablet (Aricept) Take 1 Tablet by mouth in the morning. Take with largest meal of the day.. (Patient not taking: Reported on 06/12/2024) 90 Tablet 0 No current facility-administered medications for this visit. Review of patient's allergies indicates: Allergen Reactions Iodinated Contrast Media Results for orders placed or performed in visit on 05/02/24 CBC Result Value Ref Range WBC 7.36 4.00 - 10.80 K/uL RBC 3.87 4.50 - 5.25 M/uL HGB 12.3 (L) 14.0 - 16.8 g/dL HCT 37.8 (L) 40.0 - 48.4 % MCV 97.7 82.0 - 99.5 fL MCH 31.8 27.0 - 34.0 pg MCHC 32.5 32.0 - 36.0 g/dL RDW 13.9 11.5 - 15.5 % PLT 165 140 - 400 K/uL MPV 10.8 6.6 - 11.1 fL Results for orders placed or performed in visit on 05/02/24 BASIC METABOLIC PANEL Result Value Ref Range BUN 29 (H) 6 - 20 mg/dL CREATININE 1.6 (H) 0.6 - 1.2 mg/dL EGFR 40 (L) >=60 mL/min SODIUM 143 135 - 146 mmol/L POTASSIUM 4.3 3.5 - 5.1 mmol/L CHLORIDE 107 98 - 107 mmol/L CO2 26 22 - 32 mmol/L ANION GAP 10 7 - 15 mmol/L GLUCOSE 84 70 - 120 mg/dL CALCIUM 8.9 8.4 - 10.2 mg/dL Results for orders placed or performed in visit on 03/14/16 LIPID PANEL Result Value Ref Range HOURS FASTING 12 hours Triglycerides 140 <200 mg/dL Cholesterol 144 <200 mg/dL HDL Cholesterol 47 >39 mg/dL Cholesterol-HDL Ratio 3.1 LDL Cholesterol 69 0 - 129 mg/dL Results for orders placed or performed in visit on 05/16/21 LIPID PANEL WITH DIRECT LDL IF TG IS HIGH Result Value Ref Range Triglycerides 85 <=174 mg/dL Cholesterol 141 <200 mg/dL HDL Cholesterol 53 >39 mg/dL Non-HDL Cholesterol 88 <=159 mg/dL LDL Cholesterol 71 <=129 mg/dL No results found for: "HEMOGLOBIN A1C" Lab Results Component Value Date/Time TSH - [facility] 6.61 (H) 05/02/2024 06:40 AM TSH - [facility] 1.56 05/23/2023 09:59 AM TSH - [facility] 1.33 05/10/2022 03:25 PM TSH - [facility] 0.90 08/09/2020 11:44 AM TSH - [facility] 1.50 06/09/2019 01:13 PM TSH - [facility] 1.61 02/25/2019 04:09 PM No results found for: "KEN" Results for orders placed or performed in visit on 05/02/24 VITAMIN B12 Result Value Ref Range Vitamin B12 648 232 - 1,245 pg/mL Results for orders placed or performed in visit on 01/17/13 FOLIC ACID Result Value Ref Range Folic Acid 12.1 4.2 - 19.9 ng/mL No results found for: "[id number]" No results found for: "[id number]" No results found for: "[id number]" 25OH VITAMIN D TOTAL (ng/mL) Date Value 08/29/2012 22.7 (L) 08/09/2011 28.2 (L) 12/27/2010 18.5 (L) 25-Hydroxy Vitamin D (ng/mL) Date Value 05/02/2024 25 Vitamin D Level Interpretation deficient: <20 ng/ml insufficient: 20-30 ng/ml normal: 31-100 ng/ml REVIEW OF SYSTEMS: As above PHYSICAL EXAM: BP 130/68 (BP Site: Left Arm, BP Position: Sitting, BP Cuff Size: Regular) | Pulse 60 | Temp 35.8 C (96.5 F) (Tympanic) | Wt 71.6 kg (157 lb 12.8 oz) Comment: wt taken by facility,pt unable to stand | SpO2 97% | BMI 22.64 kg/m | BSA 1.88 m The patient is sleepy but arousable in no distress IMPRESSION: Advanced Alzheimer's disease with weight loss recommend discontinuing Aricept. ContinueKeppra Keppra level today. I would be glad to discuss a proposed changes in anticonvulsants although they would need to be made cautiously. Return in 6 months Tonja Rivas MD 06/12/2024 3:17 PM documented in this encounter Nursing Notes * Alicia Cazares LPN - 06/12/2024 2:20 PM EDT Chief Complaint Patient presents with Return Neuro documented in this encounter Plan of Treatment Upcoming Encounters Date Type Department Care Team (Late st Contact Info) Description 07/22/2024 1:45 PM EDT Office Visit Urology, [facility] [address] [address] Wili Mckeon MD [address] [address] 10/24/2024 1:30 PM EST Office Visit Cardiology, [facility] [address] [address] Tristen Otto PA-C [address] [place] [address] 12/11/2024 3:40 PM EDT Office Visit Neurology [employer] [address] [facility] [place] [address] Tonja Rivas MD [address] [facility] [place] [address] Pending Results Name Type Priority Associated Diagnoses Date /Time LEVETIRACETAM LEVEL Lab Routine Seizure disorder, simple partial, 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) 06/12/2024 3:16 PM EDT Health Maintenance Due Date Last [...] Screening 10/01/2024 10/01/2023 CKD PHOS USE SMARTSET 73843 03/14/2025/09/2023, 12/02/2018, 03/14/2016, Additional history exists CKD HGB USE SMARTSET 85248 05/02/202505/02, 03/14/2024, 05/23/2023, Additional history exists TSH [...] as of this encounter Visit Diagnoses Diagnosis Seizure disorder, simple partial, 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)- Primary Localization-related (focal) (partial) epilepsy and epileptic syndromes with simple partial seizures, without mention of intractable epilepsy Memory loss documented in this encounter Advance Directives Documents on File Type Date Recorded Patient Inspector Expl anation Advance Directives and Living Will 07/16/2017 LIVING WILL Power of Cylinder Head Assembler 07/16/2017 POWER OF A TTORNEY DURABLE HEALTH CARE POA Healthcare Agents on File Name Relationship Healthcare Agent Relationshi p Communication Shelly Story Spouse Health Care Agen t (per Health Care Power of Cylinder Head Assembler document) Care Teams Cushion Sewer Relationship Specialty Start Date End Date Jordana Hopkins DO [address] [place] [address] PCP - General Family Medicine 03/05/17 documented as of this encounter
--- OUTSIDE RECORDS SUMMARY | 2024-08-23 23:50 | External Medical Summary ---
Author Name Unknown Address Unknown Organization [id number]:[facility] - [address] [place] [id number] Laboratory Report Ordering Provider Test Date Status JACKELIN CANELA 06/21/2024 10:26:07 Final Observation Date Value Abnormality Reference (Units) Status Bacteria identified in Specimen by Culture 06/21/2024 10:26:07 No significant growth Final Test: Culture, Urine, Quanti tative
Specimen Source: Urine, Clean Catch
Specimen Type: Urine
Specimen Date: 06/21/2024 1026
Result Date: 06/22/2024 1400
Result Status: Final result
Resulting Lab: [facility]
[address]
[facility] [address]

CULTURE

No significant growth

null Performing Location LABORATORY [facility] - [address] [facility] [address]
--- OUTSIDE RECORDS SUMMARY | 2024-08-23 23:50 | External Medical Summary | Summary of Care ---
Author Name Unknown Organization [facility] Address [address] [place] [address] Phone [phone] Care Team Providers Care Rn Clinical Quality Name Role Phone Jordana Hopkins DO Primary Care Provider Reason for Visit * Reason Comments Outpatient Testing Encounter Details Date Type Department Care Team (Late st Contact Info) Description 06/12/2024 3:20 PM EDT Laboratory Laboratory [facility] [address] [place] [address] [facility] [address] [place] [address] Arrived Allergies Active Allergy Reactions Criticality Noted Date [...] in the morning. 90 Tablet 03/21/2024 Active Metoprolol Succinate ER 100 MG [...] Diagnosed Date Atherosclerotic heart diseas e of [place] coronary artery with other forms of angina [...] 1:45 PM EDT Office Visit Urology, [facility] [address] [place] [address] Wili Mckeon MD [address] [place] [address] 10/24/2024 1:30 PM EST Office Visit Cardiology, [facility] 132 [facility] [place] [address] Tristen Otto PA-C [address] [place] [address] 12/11/2024 3:40 PM EDT Office Visit [facility] [address] [place] [address] Tonja Rivas MD [address] [place] [address] Health Maintenance Due Date Last Done Comments Albumin/Creatinine Ratio 12/03/2019 019, 03/14/2016, 08/09/2011, Additional history exists DTap/Tdap Vaccines (2 - Td or Tdap) 09/29/2021 09/29/2011, 09/05/1999 Adult Wellness Visit 01/23/2023 01/23/2022 COVID-19 Vaccine ( season) 2024 08/06/2023, 08/02/2022, 05/11/2022, Additional history exists Influenza Vaccine (FLU shot) (#1) 2024 07/02/2023, 07/07/2022, 06/15/2021, Additional history exists Depression Screening 10/01/2024 10/01/2023 CKD PHOS USE SMARTSET 13401 03/14/2025 06/09/2023, 12/02/2018, 03/14/2016, Additional history exists CKD HGB USE SMARTSET 73939 05/02/202505/02, 03/14/2024, 05/23/2023, Additional history exists TSH [...] Documents on File Type Date Recorded Patient Creative Technologist Expl anation Advance Directives and Living Will 07/16/2017 LIVING WILL Power of Order Desk Clerk 07/16/2017 POWER OF A TTORNEY DURABLE HEALTH CARE POA Healthcare Agents on File Name Relationship Healthcare Agent Relationshi p Communication Shelly Story Spouse Health Care Agen t (per Health Care Power of Order Desk Clerk document) Care Teams Rn Clinical Quality Relationship Specialty Start Date End Date Jordana Hopkins DO [address] [place] [address] PCP - General Family Medicine 03/05/17 documented as of this encounter
--- OUTSIDE RECORDS SUMMARY | 2024-08-23 23:50 | External Medical Summary ---
Author Name Unknown Address Unknown Organization [facility] [facility] [address] [place] [address] Laboratory Report Ordering Provider Test Date Status JACKELIN CANELA 06/21/2024 10:26:07 Final Observation Date Value Abnormality Reference (Units ) Status RBC, Urine 06/21/2024 10:26:07 0-2 0-2 (/HPF) Final WBC, Urine 06/21/2024 10:26:07 0-2 0-2 (/HPF) Final Bacteria [#/area] in Urine sediment by Microscopy high power field 06/21/2024 10:26:07 0-25 0-25 (/HPF) Final Crystals.amorphous [#/area] in Urine sediment by Microscopy high power field 06/21/2024 10:26:07 Many Abnormal None (/HPF) Final Performing Location LABORATORY [facility] [place] [address] [place] [address]
--- OUTSIDE RECORDS SUMMARY | 2024-08-23 23:50 | External Medical Summary | Summary of Care ---
Author Name Unknown Organization [facility] Address [address] [place] [address] Phone [phone] Care Team Providers Care Unified Communications Architect Name Role Phone Jordana Hopkins DO Primary Care Provider Reason for Visit * Reason Onset Date Comments [facility]: Screening 06/19/2024 Encounter Details Date Type Department Care Team (Late st Contact Info) Description 06/19/2024 Telephone [facility] [place] [address] [place] [phone] Stephy Luna, OPERATIONS SUPERVISOR [address] [place] [address] [facility]: Screening Allergies Active Allergy Reactions Criticality Noted Date Comments Iodinated Contrast Media 12/15/2010 documented as of this encounter (statuses as of 06/19/2024) Medications Medication Sig Dispensed Refills Start Date [...] as of this encounter (statuses as of 06/19/2024) Active Problems Problem Noted Date Diagnosed Date Atherosclerotic heart diseas e of [place] coronary artery with other forms of angina [...] as of this encounter (statuses as of 06/19/2024) Resolved Problems Problem Noted Date Diagnosed Date [...] as of this encounter (statuses as of 06/19/2024) Immunizations Name Administration Dates Next Due COVID-19 [...] for ages 0-17 years) Not on file 01 /04/2024 Food Insecurity Answer Date Recorded Do you [...] encounter Miscellaneous Notes * Telephone Encounter - Stephy Luna LPN - 06/19/2024 10:19 AM EDT Isabela Story was referred as a potential candidate for enrollment for [facility]. A review of this chart was completed and: Isabela does not meet criteria for enrollment into [facility]. Referral Source: Monthly Proactive Eligibility List Criteria for Ineligibility: SNF Customer Support Manager Care Referring care team was notified via : Epic communication documented in this encounter Plan of Treatment Upcoming Encounters Date Type Department Care Team (Late st Contact Info) Description 07/22/2024 1:45 PM EDT Office Visit Urology, [facility] [address] [place] [address] [address] Wili Mckeon MD [address] [place] [address] 10/24/2024 1:30 PM EST Office Visit Cardiology, [facility] [address] [place] [address] Tristen Otto PA-C [address] [place] [address] 12/11/2024 3:40 PM EDT Office Visit Neurology [facility] 200 [facility] [address] [place] [address] Tonja Rivas MD [address] [place] [address] Health Maintenance Due Date Last Done Comments Albumin/Creatinine Ratio 12/03/2019 019, 03/14/2016, 08/09/2011, Additional history exists DTap/Tdap Vaccines (2 - Td or Tdap) 09/29/2021 09/29/2011, 09/05/1999 Adult Wellness Visit 01/23/2023 01/23/2022 COVID-19 Vaccine ( season) 2024 08/06/2023, 08/02/2022, 05/11/2022, Additional history exists Influenza Vaccine (FLU shot) (#1) 2024 07/02/2023, 07/07/2022, 06/15/2021, Additional history exists Depression Screening 10/01/2024 10/01/2023 CKD PHOS USE SMARTSET 63136 03/14/2025 06/09/2023, 12/02/2018, 03/14/2016, Additional history exists CKD HGB USE SMARTSET 95083 05/02/202505/02, 03/14/2024, 05/23/2023, Additional history exists TSH [...] Documents on File Type Date Recorded Patient Ophthalmic Assistant Expl anation Advance Directives and Living Will 07/16/2017 LIVING WILL Power of Independent Living Advisor 07/16/2017 POWER OF A TTORNEY DURABLE HEALTH CARE POA Healthcare Agents on File Name Relationship Healthcare Agent Relationshi p Communication Shelly Story Spouse Health Care Agen t (per Health Care Power of Independent Living Advisor document) Care Teams Unified Communications Architect Relationship Specialty Start Date End Date Jordana Hopkins DO [address] [place] [address] PCP - General Family Medicine 03/05/17 documented as of this encounter
--- OUTSIDE RECORDS SUMMARY | 2024-08-23 23:50 | External Medical Summary ---
Author Name Unknown Address Unknown Organization [facility] - [address] [place] [address] Laboratory Report Ordering Provider Test Date Status JACKELIN CANELA 06/21/2024 10:26:07 Final Observation Date Value Abnormality Reference (Units ) Status Color of Urine by Auto 06/21/2024 10:26:07 Yellow Light Yellow, Yellow, Dark Yellow Final Clarity, Urine 06/21/2024 10:26:07 Cloudy Abnormal Clear Final Glucose [Mass/volume] in Urine by Automated test strip 06/21/2024 10:26:07 Negative Negative (mg/dL) Final Bilirubin.total [Presence] in Urine by Automated test strip 06/21/2024 10:26:07 Negative Negative Final Ketones [Mass/volume] in Urine by Automated test strip 06/21/2024 10:26:07 15 Abnormal Negative (mg/dL) Final Specific gravity, Urine 06/21/2024 10:26:07 1.025 1.003-1.030 Final Hemoglobin [Presence] in Urine by Automated test strip 06/21/2024 10:26:07 Negative Negative Final pH, Urine 06/21/2024 10:26:07 5.5 5.0-7.5 (Units) Final Protein [Mass/volume] in Urine by Automated test strip 06/21/2024 10:26:07 Negative Negative (mg/dL) Final Urobilinogen [Mass/volume] in Urine by Automated test strip 06/21/2024 10:26:07 0.2 0.2, 1.0 (mg/dL) Final Nitrite [Presence] in Urine by Automated test strip 06/21/2024 10:26:07 Negative Negative Final Leukocyte esterase [Presence] in Urine by Automated test strip 06/21/2024 10:26:07 Negative Negative Final Performing Location LABORATORY [facility] [address] [place] [address]
--- OUTSIDE RECORDS SUMMARY | 2024-08-23 23:50 | External Medical Summary ---
Author Name Unknown Address Unknown Organization K01:LABORATORY [facility] - [address] [place] [address] Laboratory Report Ordering Provider Test Date Status MISAEL PIEDRAEFER 06/12/2024 15:16:58 Final Observation Date Value Abnormality Reference (Units ) Status Levetiracetam level 06/12/2024 15:16:58 54 3-63 (ug/mL) Final Performing Location LABORATORY C - [address] [place] [address]
--- OUTSIDE RECORDS SUMMARY | 2024-08-23 23:51 | External Medical Summary | Summary of Care ---
Author Name Unknown Organization [facility] Address [address] [place] [address] Phone [phone] Care Team Providers Care Venture Capital Analyst Name Role Phone Jordana Hopkins DO Primary Care Provider Encounter Details Date Type Department Care Team (Late st Contact Info) Description 03/14/2024 Result Scan Unspecified Department <No scans attached> Allergies Active Allergy Reactions Criticality Noted Date Comments Iodinated Contrast Media 12/15/2010 documented as of this encounter (statuses as of 03/31/2024) Medications Medication Sig Dispensed Refills Start Date End Date Status ASPIRIN EC LOW STRENGTH TBEC 81 MG OR take one tablet daily 34 11 01/06/2003 Active Cholecalciferol (VITAMIN D) 1000 UNIT Capsule 1 Capsule in the morning. Active nitroglycerin (NITROSTAT) 0.4 MG SUBLIndications:Spe cial screening for malignant neoplasms, colon Place 1 Tab under the tongue every 5 minutes as needed for Pain, Chest. Every 5 minutes x 3 for chest pain. 10 Tab 5 02/11/2018 Active Warfarin Sodium 5 MG Oral Tablet (Coumadin)Indicatio ns:History of DVT (deep vein thrombosis) Take 0.5 to 1 tab by mouth once daily as directed by [facility]. 90 Tablet 3 08/22/2023 Active Additional Information Patient taking differently: Take 0.5 to 1 tab by mouth once daily as directed by [facility].MWF 1 tabT TH Sat Sun 0.5 tab, Reported on 10/10/2023 Levothyroxine Sodium 88 MCG Oral Tablet (Levoxyl)Indication [...] Packet by mouth in the morning. Active documented as of this encounter (statuses as of 03/31/2024) Active Problems Problem Noted Date Diagnosed Date Atherosclerotic heart diseas e of [place] coronary artery with other forms of angina [...] as of this encounter (statuses as of 03/31/2024) Resolved Problems Problem Noted Date Diagnosed Date [...] as of this encounter (statuses as of 03/31/2024) Immunizations Name Administration Dates Next Due COVID-19 [...] Influenza, Trivalen t, Adjuvanted, 65+ yrs 06/23/2019 TDAP, Age 7 and older, IM [...] No 10/01/2023 Does the household have a [facility] source of income? (Household - for ages [...] Team (Late st Contact Info) Description 04/17/2024 10:00 AM EDT Office Visit Cardiology, [facility] [address] [place] [address] [address] Tristen Otto PA-C [address] [place] [address] 04/21/2024 1:40 PM EDT Anticoagulation Pharmacy, [facility] [address] [place] [address] Pharmacist1, [facility] [address] [facility] [place] [address] 05/01/2024 1:00 PM EDT Office Visit Neurology [facility] [address] [place] [address] Tonja Rivas MD [address] [place] [address] 07/22/2024 1:45 PM EDT Office Visit Urology, [facility] [address] [place] [address] Wili Mckeon MD [address] [place] [address] Health Maintenance Due Date Last Done Comments Albumin/Creatinine Ratio 12/03/2019 019, 03/14/2016, 08/09/2011, Additional history exists CKD PHOS USE SMARTSET 96981 12/03/201902/23, 12/02/2018, 03/14/2016, Additional history exists DTaP,Tdap,and Td Vaccines (2 - Td or Tdap) 09/29/2021 09/29/2011, 09/05/1999 COVID-19 Vaccine ( season) 2023 08/06/2023, 08/02/2022, 05/11/2022, Additional history exists CKD HGB USE SMARTSET 27887 05/23/202403/14, 05/23/2023, 05/10/2022, Additional history exists TSH 05/23/2024 05/23/2023, 04/24, 11/09/2021, Additional history exists Influenza Vaccine (FLU shot) (#1) 2024 07/02/2023, 07/07/2022, 06/15/2021, Additional history exists Depression Screening 10/01/2024 10/01/2023 Pneumococcal Vaccine: 65+ Years Completed 02/05/2015, 01/10/2013, [...] Procedure Name Priority Date/Time Associated Diagnosis Comments RADIOLOGY SCANNED RESULT 03/14/2024 documented in this encounter Results * RADIOLOGY SCANNED RESULT (03/14/2024) 03/14/2024 No Physician Data Unknown DIAGNOSTIC RAD IOLOGY SERVICES documented in this encounter Advance Directives Documents on File Type Date Recorded 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
--- OUTSIDE RECORDS SUMMARY | 2024-08-23 23:51 | External Medical Summary | Summary of Care ---
Author Name Unknown Organization [facility] Address [address] [facility] [place] [address] Phone [phone] Care Team Providers Care Country Printer Name Role Phone Jordana Hopkins DO Primary Care Provider Encounter Details Date Type Department Care Team (Late st Contact Info) Description 04/17/2024 Result Scan Unspecified Department Tristen Otto PA-C [address] [place] [address] <No scans attached> Allergies Active Allergy Reactions Criticality Noted Date Comments Iodinated Contrast Media 12/15/2010 documented as of this encounter (statuses as of 04/18/2024) Medications Medication Sig Dispensed Refills Start Date End Date Status nitroglycerin (NITROSTAT) 0.4 MG SUBLIndications:Spe cial screening for malignant neoplasms, colon Place 1 Tab under the tongue every 5 minutes as needed for Pain, Chest. Every 5 minutes x 3 for chest pain. 10 Tab 5 02/11/2018 Active Additional Information Patient not taking.Reported on 04/17/2024 Warfarin Sodium 5 MG Oral Tablet (Coumadin)Indicatio [...] Packet by mouth in the morning. Active QUEtiapine Fumarate 25 MG Oral Tablet (SEROquel) 1/2 at bedtime when instructed to start 30 Tablet 2 03/17/2024 Active levETIRAcetam ER 750 MG Oral Tablet [...] of the day.. 90 Tablet 03/21/2024 Active Rosuvastatin Calcium 5 MG Oral Tablet (Crestor)Indication s:Dyslipidemia, goal LDL below 70 Take 1 Tablet by mouth in the morning. 90 Tablet 3 03/21/2024 Active Metoprolol Succinate ER 100 MG Oral Tablet Extended Release 24 Hour (toPROL XL)Indications:HTN, goal below 140/90,Nonsustained ventricular tachycardia (HCC) Take 1 Tablet by mouth daily. 90 Tablet 3 03/21/2024 Active Omeprazole 20 MG Oral Capsule Delayed Release (PriLOSEC)Indicatio ns:Dysphagia, unspecified type Take 1 Capsule by mouth in the morning. 1 hour before the first meal of the day. 90 Capsule 1 03/21/2024 Active Memantine HCl 10 MG Oral Tablet (Namenda) Take 1 Tablet by mouth 2 times a day with morning and evening meals. 180 Tablet 1 03/21/2024 Active Finasteride 5 MG Oral Tablet (Proscar)Indication s:BPH with obstruction/lower urinary tract symptoms Take 1 Tablet by mouth in the morning. 90 Tablet 3 03/21/2024 Active Losartan Potassium 50 MG Oral Tablet (Cozaar)Indications :HTN, goal below 140/90 Take 1 Tablet by mouth in the morning. 90 Tablet 3 03/21/2024 Active Amiodarone HCl 200 MG Oral Tablet (Cordarone)Indicati ons:Nonsustained ventricular tachycardia (HCC) Take 0.5 Tablets by mouth daily with breakfast. 45 Tablet 3 03/21/2024 Active documented as of this encounter (statuses as of 04/18/2024) Active Problems Problem Noted Date Diagnosed Date Atherosclerotic heart diseas e of [place] coronary artery with other forms of angina [...] as of this encounter (statuses as of 04/18/2024) Resolved Problems Problem Noted Date Diagnosed Date [...] as of this encounter (statuses as of 04/18/2024) Immunizations Name Administration Dates Next Due COVID-19 [...] Care Team (Late st Contact Info) Description 05/30/2024 1:00 PM EDT Office Visit Neurology [facility] 200 [facility] [place] [address] Tonja Rivas MD 200 [facility] [place] [address] 07/22/2024 1:45 PM EDT Office Visit Urology, [facility] [address] [place] [address] Wili Mckeon MD [address] [place] [id number] 10/24/2024 1:30 PM EST Office Visit Cardiology, [facility] [address] [place] [address] Tristen Otto PA-C [address] [place] [address] Health Maintenance Due Date Last Done Comments Albumin/Creatinine Ratio 12/03/2019 019, 03/14/2016, 08/09/2011, Additional history exists DTaP,Tdap,and Td Vaccines (2 - Td or Tdap) 09/29/2021 09/29/2011, 09/05/1999 COVID-19 Vaccine (2022- season) 2023 08/06/2023, 08/02/2022, 05/11/2022, Additional history exists TSH 05/23/2024 05/23/2023, 04/24, 11/09/2021, Additional history exists Influenza Vaccine (FLU shot) (#1) 2024 07/02/2023, 07/07/2022, 06/15/2021, Additional history exists Depression Screening 10/01/2024 10/01/2023 CKD HGB USE SMARTSET 11710 03/14/202503/14, 05/23/2023, 05/10/2022, Additional history exists CKD PHOS USE SMARTSET 82747 03/14/2025 0609/2023, 12/02/2018, 03/14/2016, Additional history exists Pneumococcal Vaccine: 65+ Years [...] Date/Time Associated Diagnosis Comments CARDIOLOGY SCANNED RESULT 04/17/2024 documented in this encounter Results * CARDIOLOGY SCANNED RESULT (04/17/2024) 04/17/2024 Tristen Otto PA-C OTHER documented in this encounter Advance Directives Documents on File Type Date Recorded Patient Prepress Technician Expl anation Advance Directives and Living Will 07/16/2017 LIVING WILL Power of Concrete Paving Supervisor 07/16/2017 POWER OF A TTORNEY DURABLE HEALTH CARE POA Healthcare Agents on File Name Relationship Healthcare Agent Relationshi p Communication Shelly Story Spouse Health Care Agen t (per Health Care Power of Concrete Paving Supervisor document) Care Teams Country Printer Relationship Specialty Start Date End Date Jordana Hopkins DO [address] [place] [address] PCP - General Family Medicine 03/05/17 documented as of this encounter
--- OUTSIDE RECORDS SUMMARY | 2024-08-23 23:51 | External Medical Summary | Summary of Care ---
Author Name Unknown Organization [facility] Address [address] [place] [address] Phone [phone] Care Team Providers Care Top Frame Maker Name Role Phone Jordana Hopkins DO Primary Care Provider Reason for Visit * Reason Onset Date Comments Health Maintenance 04/24/2024 Encounter Details Date Type Department Care Team (Late st Contact Info) Description 04/24/2024 Telephone Family Practice [facility] [place] [address] [place] [address] Jordana Hopkins DO 200 [facility] [place] [address] Health Maintenance Allergies Active Allergy Reactions Criticality Noted Date Comments Iodinated Contrast Media 12/15/2010 documented as of this encounter (statuses as of 04/24/2024) Medications Medication Sig Dispensed Refills Start Date [...] QUEtiapine Fumarate 25 MG Oral Tablet (SEROquel) 1/ at bedtime when instructed to start 30 [...] as of this encounter (statuses as of 04/24/2024) Active Problems Problem Noted Date Diagnosed Date Atherosclerotic heart diseas e of [place] coronary artery with other forms of angina [...] as of this encounter (statuses as of 04/24/2024) Resolved Problems Problem Noted Date Diagnosed Date [...] as of this encounter (statuses as of 04/24/2024) Immunizations Name Administration Dates Next Due COVID-19 [...] encounter Miscellaneous Notes * Telephone Encounter - Naz Stout LPN - 04/24/2024 10:55 AM EDT Care Gaps Comprehensive Care Outreach Last Office/Telemedicine Visit: 01/14/2024 (in office), 01/08/2023 (telemedicine) Next Office Visit: Visit date not found Hemoglobin AIC Results: No results found for: "HEMOGLOBIN A1C" BP Readings from Last 1 Encounters: 04/17/24 136/74 Reviewed Health Maintenance below: Health Maintenance Topic Date Due Albumin/Creatinine Ratio 12/03/2019 DTaP,Tdap,and Td Vaccines (2 - Td or Tdap) 09/29/2021 COVID-19 Vaccine (7 - 2022- season) 2023 TSH 05/23/2024 Influenza Vaccine (FLU shot) (1) 05/25/2024 Recapture Ov lab Care Gap Outreach Action Taken: Left message documented in this encounter Plan of Treatment Upcoming Encounters Date Type Department Care Team (Late st Contact Info) Description 05/30/2024 1:00 PM EDT Office Visit Neurology [facility] [place] [address] [place], [place] [address] Tonja Rivas MD 200 [facility] [place] [address] 07/22/2024 1:45 PM EDT Office Visit Urology, [facility] [address] [facility] [place] [address] Wili Mckeon MD 27 [facility] [place] [address] 10/24/2024 1:30 PM EST Office Visit [facility]iology, [facility] [place] [address] Trisetn Otto PA-C 132 [facility] [place] [address] Health Maintenance Due Date Last Done Comments [...] Screening 10/01/2024 10/01/2023 CKD HGB USE SMARTSET 06643 03/14/202503/14, 05/23/2023, 05/10/2022, Additional history exists CKD PHOS USE SMARTSET 44996 03/14/202502/23, 12/02/2018, 03/14/2016, Additional history exists Pneumococcal Vaccine: [...] Documents on File Type Date Recorded Patient Mandrel Press Hand Expl anation Advance Directives and Living Will 07/16/2017 LIVING WILL Power of Pump Erector 07/16/2017 POWER OF A TTORNEY DURABLE HEALTH CARE POA Healthcare Agents on File Name Relationship Healthcare Agent Relationshi p Communication Shelly Story Spouse Health Care Agen t (per Health Care Power of Pump Erector document) Care Teams Top Frame Maker Relationship Specialty Start Date End Date Jordana Hopkins DO [address] [place] [address] PCP - General Family Medicine 03/05/17 documented as of this encounter
--- OUTSIDE RECORDS SUMMARY | 2024-08-23 23:51 | External Medical Summary | Summary of Care ---
Author Name Unknown Organization [facility] Address [address] [place] [address] Phone [phone] Care Team Providers Care Casting Tester Name Role Phone Jordana Hopkins DO Primary Care Provider Encounter Details Date Type Department Care Team (Late st Contact Info) Description 05/12/2024 Result Scan Unspecified Department Barrington Coelho MD [address] [place] [address] <No scans attached> Allergies Active Allergy Reactions Criticality Noted Date Comments Iodinated Contrast Media 12/15/2010 documented as of this encounter (statuses as of 05/12/2024) Medications Medication Sig Dispensed Refills Start Date [...] as of this encounter (statuses as of 05/12/2024) Active Problems Problem Noted Date Diagnosed Date Atherosclerotic heart diseas e of [place] coronary artery with other forms of angina [...] as of this encounter (statuses as of 05/12/2024) Resolved Problems Problem Noted Date Diagnosed Date [...] as of this encounter (statuses as of 05/12/2024) Immunizations Name Administration Dates Next Due COVID-19 [...] 06/12/2024 2:20 PM EDT Office Visit Neurology [facility] [address] [facility] [place] [address] Tonja Rivas MD [address] [facility] [place] [address] 07/22/2024 1:45 PM EDT Office Visit Urology, [facility] [address] [place] [address] [address] Wili Mckeon MD [address] [place] [address] 10/24/2024 1:30 PM EST Office Visit Cardiology, [facility] [address] [place] [address] [address] Tristen Otto PA-C [address] [place] [address] Health Maintenance Due Date Last Done Comments Albumin/Creatinine Ratio 12/03/2019 019, 03/14/2016, 08/09/2011, Additional history exists DTaP,Tdap,and Td Vaccines (2 - Td or Tdap) 09/29/2021 09/29/2011, 09/05/1999 Adult Wellness Visit 01/23/2023 01/23/2022 COVID-19 Vaccine ( season) 2023 08/06/2023, 08/02/2022, 05/11/2022, Additional history exists Influenza Vaccine (FLU shot) (#1) 2024 07/02/2023, 07/07/2022, 06/15/2021, Additional history exists Depression Screening 10/01/2024 10/01/2023 CKD PHOS USE SMARTSET 81713 03/14/2025 0609/2023, 12/02/2018, 03/14/2016, Additional history exists CKD HGB USE SMARTSET 74594 05/02/202505/02, 03/14/2024, 05/23/2023, Additional history exists TSH [...] Date/Time Associated Diagnosis Comments CARDIOLOGY SCANNED RESULT 05/12/2024 documented in this encounter Results * CARDIOLOGY SCANNED RESULT (05/12/2024) 05/12/2024 Barrington Coelho MD OTHER documented in this encounter Advance Directives Documents on File Type Date Recorded Patient Account Processor Expl anation Advance Directives and Living Will 07/16/2017 LIVING WILL Power of Test Lead Application Testing 07/16/2017 POWER OF A TTORNEY DURABLE HEALTH CARE POA Healthcare Agents on File Name Relationship Healthcare Agent Relationshi p Communication Shelly Story Spouse Health Care Agen t (per Health Care Power of Test Lead Application Testing document) Care Teams Casting Tester Relationship Specialty Start Date End Date Jordana Hopkins DO [address] [place] [address] PCP - General Family Medicine 03/05/17 documented as of this encounter
--- OUTSIDE RECORDS SUMMARY | 2024-08-23 23:51 | External Medical Summary | Summary of Care ---
Author Name Unknown Organization [facility] Address [address] [place] [address] Phone [phone] Care Team Providers Care Drip Pumper Name Role Phone Jordana Hopkins DO Primary Care Provider Encounter Details Date Type Department Care Team (Late st Contact Info) Description 01/08/2024 Telephone Family Practice [facility] [place] [address] [place] [phone] Jordana Hopkins DO [address] [place] [phone] Allergies Active Allergy Reactions Criticality Noted Date Comments Iodinated Contrast Media 12/15/2010 documented as of this encounter (statuses as of 04/08/2024) Medications Medication Sig Dispensed Refills Start Date [...] as of this encounter (statuses as of 04/08/2024) Active Problems Problem Noted Date Diagnosed Date Atherosclerotic heart diseas e of [place] coronary artery with other forms of angina [...] as of this encounter (statuses as of 04/08/2024) Resolved Problems Problem Noted Date Diagnosed Date [...] as of this encounter (statuses as of 04/08/2024) Immunizations Name Administration Dates Next Due COVID-19 [...] 04/17/2024 10:00 AM EDT Office Visit Cardiology, [facility] [address] [place] [address] Tristen Otto PA-C [address] [place] [address] 04/21/2024 1:40 PM EDT Anticoagulation Pharmacy, [place] [address] [place] [address] Pharmacist1, [facility] [address] [place] [address] 05/01/2024 1:00 PM EDT Office Visit Neurology [facility] [place] [address] [place] [address] Tonja Rivas MD [address] [place] [address] 07/22/2024 1:45 PM EDT Office Visit Urology, [facility] [address] [place] [address] Wili Mckeon MD [address] [place] [address] Health Maintenance Due Date Last Done Comments [...] Screening 10/01/2024 10/01/2023 CKD HGB USE SMARTSET 70212 03/14/202503/14, 05/23/2023, 05/10/2022, Additional history exists CKD PHOS USE SMARTSET 31507 03/14/202502/23, 12/02/2018, 03/14/2016, Additional history exists Pneumococcal [...] Documents on File Type Date Recorded Patient Chemical Mixer Expl anation Advance Directives and Living Will 07/16/2017 LIVING WILL Power of Material Reclaimer 07/16/2017 POWER OF A TTORNEY DURABLE HEALTH CARE POA Healthcare Agents on File Name Relationship Healthcare Agent Relationshi p Communication Shelly Story Spouse Health Care Agen t (per Health Care Power of Material Reclaimer document) Care Teams Drip Pumper Relationship Specialty Start Date End Date Jordana Hopkins DO [facility] [place] [address] PCP - General Family Medicine 03/05/17 documented as of this encounter
--- OUTSIDE RECORDS SUMMARY | 2024-08-23 23:51 | External Medical Summary | Summary of Care ---
Author Name Unknown Organization [facility] Address [address] [place] [address] Phone [phone] Care Team Providers Care Patient Support Associate Name Role Phone Jordana Hopkins DO Primary Care Provider Reason for Visit * Reason Onset Date Comments FYI 04/23/2024 Encounter Details Date Type Department Care Team (Late st Contact Info) Description 04/23/2024 Telephone Pharmacy, [facility] 200 [facility] [place] [address] Pharmacist1, [facility] [place] [address] FYI (/) Allergies Active Allergy Reactions Criticality Noted Date Comments Iodinated Contrast Media 12/15/2010 documented as of this encounter (statuses as of 04/23/2024) Medications Medication Sig Dispensed Refills Start Date [...] as of this encounter (statuses as of 04/23/2024) Active Problems Problem Noted Date Diagnosed Date Atherosclerotic heart diseas e of [place] coronary artery with other forms of angina [...] as of this encounter (statuses as of 04/23/2024) Resolved Problems Problem Noted Date Diagnosed Date [...] as of this encounter (statuses as of 04/23/2024) Immunizations Name Administration Dates Next Due COVID-19 [...] encounter Miscellaneous Notes * Telephone Encounter - Arcadio Boyd RPh - 04/23/2024 11:48 AM EDT Agree with plan as documented. Pt discharged at this time. Arcadio Boyd [facility] Clinical Pharmacist 04/23/2024, 11:48 AM * Telephone Encounter - Riana Wahl PHARM Tech - 04/23/2024 11:11 AM EDT Pt reports he is no longer taking warfarin per his cognos tm1 developer. Please discharge from [facility]. Thank you, Riana Wahl Computer Equipment Repairer [facility] [phone] 04/23/2024,11:12 AM documented in this encounter Plan of Treatment Upcoming Encounters Date Type Department Care Team (Late st Contact Info) Description 05/30/2024 1:00 PM EDT Office Visit [facility] [address] [place] [address] Tonja Rivas MD [address] [place] [address] 07/22/2024 1:45 PM EDT Office Visit Urology, [facility] 132 [facility] [place] [address] Wili Mckeon MD [address] [place] [address] 10/24/2024 1:30 PM EST Office Visit Cardiology, [facility] 132 [facility] [place] [address] Tristen Otto PA-C 132 [facility] [place] [address] Health Maintenance Due Date Last Done Comments [...] Screening 10/01/2024 10/01/2023 CKD HGB USE SMARTSET 27694 03/14/202503/14, 05/23/2023, 05/10/2022, Additional history exists CKD PHOS USE SMARTSET 69167 03/14/202502/23, 12/02/2018, 03/14/2016, Additional history exists Pneumococcal [...] Documents on File Type Date Recorded Patient Data Processing Auditor Expl anation Advance Directives and Living Will 07/16/2017 LIVING WILL Power of Quality Management Coordinator 07/16/2017 POWER OF A TTORNEY DURABLE HEALTH CARE POA Healthcare Agents on File Name Relationship Healthcare Agent Relationshi p Communication Shelly Story Spouse Health Care Agen t (per Health Care Power of Quality Management Coordinator document) Care Teams Patient Support Associate Relationship Specialty Start Date End Date Jordana Hopkins DO [address] [place] [address] PCP - General Family Medicine 03/05/17 documented as of this encounter
--- OUTSIDE RECORDS SUMMARY | 2024-08-23 23:51 | External Medical Summary | Summary of Care ---
Author Name Unknown Organization [facility] Address [address] [place] [address] Phone [phone] Care Team Providers Care Executive Sales Manager Name Role Phone Jordana Hopkins DO Primary Care Provider Encounter Details Date Type Department Care Team (Late st Contact Info) Description 05/02/2024 Orders Only Lab Mobile Phlebotomy [facility] [address] [place] [address] Jaed Seals CRNP [address] [place] [address] Routine medical exam* Allergies Active Allergy Reactions Criticality Noted Date Comments Iodinated Contrast Media 12/15/2010 documented as of this encounter (statuses as of 05/02/2024) Medications Medication Sig Dispensed Refills Start Date [...] as of this encounter (statuses as of 05/02/2024) Active Problems Problem Noted Date Diagnosed Date Atherosclerotic heart diseas e of [place] coronary artery with other forms of angina [...] as of this encounter (statuses as of 05/02/2024) Resolved Problems Problem Noted Date Diagnosed Date [...] as of this encounter (statuses as of 05/02/2024) Immunizations Name Administration Dates Next Due COVID-19 [...] 07/22/2024 1:45 PM EDT Office Visit Urology, [facility] [address] [place] [address] [address] Wili Mckeon MD [address] [place] [address] 10/24/2024 1:30 PM EST Office Visit Cardiology, [facility] [address] [address] [address] Tristen Otto PA-C [address] [place] [address] Scheduled Orders Name Type Priority Associated Diagnoses Orde r Schedule BASIC METABOLIC PANEL Lab Routine Routine medical exam Expected: 05/02/2024, Expires: 05/02/2025 25-HYDROXY VITAMIN D Lab Routine Routine medical exam Expected: 05/02/2024, Expires: 05/02/2025 CBC Lab Routine Routine medical exam Expected: 05/02/2024, Expires: 05/02/2025 TSH WITH FREE T4 IF INDICATED Lab Routine Routine medical exam Expected: 05/02/2024, Expires: 05/02/2025 VITAMIN B12 Lab Routine Routine medical exam Expected: 05/02/2024, Expires: 05/02/2025 Health Maintenance Due Date Last Done Comments [...] Screening 10/01/2024 10/01/2023 CKD HGB USE SMARTSET 87664 03/14/202503/14, 05/23/2023, 05/10/2022, Additional history exists CKD PHOS USE SMARTSET 69539 03/14/202502/23, 12/02/2018, 03/14/2016, Additional history exists Pneumococcal [...] medical examination at a health care facility documented in this encounter Advance Directives Documents on File Type Date Recorded Patient Director Business Management Expl anation Advance Directives and Living Will 07/16/2017 LIVING WILL Power of Director Smb Sales 07/16/2017 POWER OF A TTORNEY DURABLE HEALTH CARE POA Healthcare Agents on File Name Relationship Healthcare Agent Relationshi p Communication Shelly Story Spouse Health Care Agen t (per Health Care Power of Director Smb Sales document) Care Teams Executive Sales Manager Relationship Specialty Start Date End Date Jordana Hopkins DO [address] [place] [address], [place] [address] PCP - General Family Medicine 03/05/17 documented as of this encounter
--- OUTSIDE RECORDS SUMMARY | 2024-08-23 23:51 | External Medical Summary | Summary of Care ---
Author Name Unknown Organization [facility] Address [address] [place] [address] Phone [phone] Care Team Providers Care Garment Inspector Name Role Phone Jordana Hopkins DO Primary Care Provider Encounter Details Date Type Department Care Team (Late st Contact Info) Description 03/31/2024 Orders Only Family Practice [facility] [place] [address] [place] [phone] Jordana Hopikns DO 200 [facility] [place] [phone] Allergies Active Allergy Reactions Criticality Noted Date [...] Diagnosed Date Atherosclerotic heart diseas e of [place] coronary artery with other forms of angina [...] 04/17/2024 10:00 AM EDT Office Visit Cardiology, [facility] [address] [place] [address] Tristen Otto PAToyC [address] [place] [address] 04/21/2024 1:40 PM EDT Anticoagulation Pharmacy, [facility] [place] [address] [place] [address] Pharmacist1, [facility] [address] [facility] [place] [address] 05/01/2024 1:00 PM EDT Office Visit Neurology [facility] [place] [address] [place] [address] [address] Tonja Rivas MD [address] [place] [address] 07/22/2024 1:45 PM EDT [facility] [address] [address] Wili Mckeon MD [address] [place] [address] Health Maintenance Due Date Last Done Comments Albumin/Creatinine Ratio 12/03/2019 019, 03/14/2016, 08/09/2011, Additional history exists CKD PHOS USE SMARTSET 81812 12/03/201902/23, 12/02/2018, 03/14/2016, Additional history exists DTaP,Tdap,and Td Vaccines (2 - Td or Tdap) 09/29/2021 09/29/2011, 09/05/1999 COVID-19 Vaccine (2022- season) 2023 08/06/2023, 08/02/2022, 05/11/2022, Additional history exists CKD HGB USE SMARTSET 26761 05/23/202403/14, 05/23/2023, 05/10/2022, Additional history exists TSH [...] Procedure Name Priority Date/Time Associated Diagnosis Comments OUTSIDE LAB-CORONAVIRUS (COVID-19) Routine 03/14/2024 XR CHEST 1 VIEW Routine 03/14/2024 CHEMISTRY-OUTSIDE Routine 03/14/2024 documented in this encounter Results * OUTSIDE LAB-CORONAVIRUS (COVID-19) (03/14/2024) [id number] E LAB NEGATIVE OUTSIDE LAB (SEE SCANNED REPORT) 03/14/2024 History Per Patient LABORATORY OUTSIDE LAB (SEE SCANNED REPORT) * (ABNORMAL) CHEMISTRY-OUTSIDE (03/14/2024) Not all results display below - see scan for full detail SCAN INCLUDES [facility]: CBC, CMP, TSH, COVID OUTSIDE LAB (SEE SCANNED REPORT) CREATININE-OUTSI DE LAB 1.30 0.6 - 1.4 MG/DL OUTSIDE LAB (SEE SCANNED REPORT) EGFR-OUTSIDE LAB 48.7 ML/MIN OUT SIDE LAB (SEE SCANNED REPORT) POTASSIUM-OUTSID E LAB 4.1 3.5 - 5.1 MMOL/L OUTSIDE LAB (SEE SCANNED REPORT) GLUCOSE-OUTSIDE LAB 110(A) 70 - 99 MG/DL OUTSIDE LAB (SEE SCANNED REPORT) HOURS FASTING OUTSID E LAB (SEE SCANNED REPORT) TRIGLYCERIDES-OU TSIDE LAB OUTSIDE LAB (SEE SCANNED REPORT) CHOLESTEROL-OUTS MANSOOR LAB OUTSIDE LAB (SEE SCANNED REPORT) HDL-OUTSIDE LAB OUTS MANSOOR LAB (SEE SCANNED REPORT) CHOL/HDL RATIO-OUTSIDE LAB OUTSIDE LAB (SEE SCANNED REPORT) LDL (CALCULATED)-OUT SIDE LAB OUTSIDE LAB (SEE SCANNED REPORT) LDL (DIRECT MEASURE)-OUTSIDE LAB OUTSIDE LAB (SEE SCANNED REPORT) HEMOGLOBIN, T1X-EPDNONP LAB OUTSIDE LAB (SEE SCANNED REPORT) PHOSPHORUS-OUTSI DE LAB 2.8 2.5 - 4.9 MG/DL OUTSIDE LAB (SEE SCANNED REPORT) PTH-OUTSIDE LAB OUTS MANSOOR LAB (SEE SCANNED REPORT) MICROALBUMIN RATIO-OUTSIDE LAB OUTSIDE LAB (SEE SCANNED REPORT) PROTEIN, UA-OUTSIDE LAB 2+(A) NEGATIVE OUTSIDE LAB (SEE SCANNED REPORT) HGB 12.5(A) 14.0 - 18.0 G/DL OUTSIDE LAB (SEE SCANNED REPORT) 03/14/2024 History Per Patient LABORATORY OUTSIDE LAB (SEE SCANNED REPORT) * XR CHEST 1 VIEW (03/14/2024) Anatomical Region Laterality Modality Chest Other 03/14/2024 History Per Patient RADIOLOGY (RAD GENER AL) documented in this encounter Advance Directives Documents on File Type Date Recorded Patient Validation Scientist Expl anation Advance Directives and Living Will 07/16/2017 LIVING WILL Power of Music Publicist 07/16/2017 POWER OF A TTORNEY DURABLE HEALTH CARE POA Healthcare Agents on File Name Relationship Healthcare Agent Relationshi p Communication Shelly [place] Spouse Health Care Agen t (per Health Care Power of Music Publicist document) Care Teams Garment Inspector Relationship Specialty Start Date End Date Jordana Hopkins DO [address] [place] [address] PCP - General Family Medicine 03/05/17 documented as of this encounter
--- OUTSIDE RECORDS SUMMARY | 2024-08-23 23:51 | External Medical Summary | Summary of Care ---
Author Name Unknown Organization [facility] Address [address] [place] [address] Phone [phone] Care Team Providers Care Programmer Analyst Health It Name Role Phone Jordana Hopkins DO Primary Care Provider Encounter Details Date Type Department Care Team (Late st Contact Info) Description 05/16/2024 Population Health External Data Unspecified Department Allergies Active Allergy Reactions Criticality Noted Date Comments Iodinated Contrast Media 12/15/2010 documented as of this encounter (statuses as of 05/16/2024) Medications Medication Sig Dispensed Refills Start Date [...] as of this encounter (statuses as of 05/16/2024) Active Problems Problem Noted Date Diagnosed Date Atherosclerotic heart diseas e of [place] coronary artery with other forms of [...] as of this encounter (statuses as of 05/16/2024) Resolved Problems Problem Noted Date Diagnosed Date [...] as of this encounter (statuses as of 05/16/2024) Immunizations Name Administration Dates Next Due COVID-19 [...] 06/12/2024 2:20 PM EDT Office Visit Neurology [facility] 200 [facility] [place] [address] Tonja Rivas MD 200 [facility] [place] [address] 07/22/2024 1:45 PM EDT Office Visit Urology, [facility] [address] [address] Wili Mckeon MD [address] [place] [address] 10/24/2024 1:30 PM EST Office Visit Cardiology, [facility] [address] [address] Tristen Otto PACristino [address] [place] [address] Health Maintenance Due Date Last Done Comments Albumin/Creatinine Ratio 12/03/2019 019, 03/14/2016, 08/09/2011, Additional history exists DTaP,Tdap,and Td Vaccines (2 - Td or Tdap) 09/29/2021 09/29/2011, 09/05/1999 Adult Wellness Visit 01/23/2023 01/23/2022 COVID-19 Vaccine (7 - 2023-24 season) 2023 08/06/2023, 08/02/2022, 05/11/2022, Additional history exists Influenza Vaccine (FLU shot) (#1) 2024 07/02/2023, 07/07/2022, 06/15/2021, Additional history exists Depression Screening 10/01/2024 10/01/2023 CKD PHOS USE SMARTSET 22592 03/14/2025 06/09/2023, 12/02/2018, 03/14/2016, Additional history exists CKD HGB USE SMARTSET 79421 05/02/202505/02, 03/14/2024, 05/23/2023, Additional history exists TSH [...] Documents on File Type Date Recorded 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
--- OUTSIDE RECORDS SUMMARY | 2024-08-23 23:51 | External Medical Summary ---
Author Name Unknown Address Unknown Organization [id number]:LABORATORY [facility] - [address] [place] [address] Laboratory Report Ordering Provider Test Date Status BUSHRA CANELAT 05/02/2024 06:40:00 Final Observation Date Value Abnormality Reference (Units ) Status TSH 05/02/2024 06:40:00 6.61 Above high normal 0. 27-4.20 (uIU/mL) Final Performing Location LABORATORY [facility] - [address] [place] [address]
--- OUTSIDE RECORDS SUMMARY | 2024-08-23 23:51 | External Medical Summary ---
Author Name Unknown Address Unknown Organization [id number]:LABORATORY [place] [address] Laboratory Report Ordering Provider Test Date Status RYAN MIRANDA 04/11/2024 12:29:17 Final Warfarin Therapy
INR: 2 .0-3.0 conventional anticoagulation
INR: 2.5- 3.5 high intensity anticoagulation Observation Date Value Abnormality Reference (Units ) Status PT 04/11/2024 12:29:17 15.6 Above high normal 11 .6-15.2 (seconds) Final INR 04/11/2024 12:29:17 1.2 0.8-1.2 Final Performing Location LABORATORY [place] [address]
--- OUTSIDE RECORDS SUMMARY | 2024-08-23 23:51 | External Medical Summary ---
Author Name Unknown Address Unknown Organization [id number]:[facility] [place] [address] [place] [address] Laboratory Report Ordering Provider Test Date Status JACKELIN CANELA 05/02/2024 06:40:00 Final Deficient: <20 ng/mL
Ins ufficient: 20-29 ng/mL
Recommended/Optimum:30-50 ng/mL

Vitamin D intoxication is rare. If suspicious of Vitamin D toxicity, evaluation of serum Calcium and PTH is recommended. Observation Date Value Abnormality Reference (Units ) Status 25-OH Vitamin D total 05/02/2024 06:40:00 25 >19 (ng/mL) Final Performing Location LABORATORY C - [address] [place] [address]
--- OUTSIDE RECORDS SUMMARY | 2024-08-23 23:51 | External Medical Summary | Summary of Care ---
Author Name Unknown Organization [facility] Address [address] [place] [address] Phone [phone] Care Team Providers Care Copier Operator Name Role Phone Jordana Hopkins DO Primary Care Provider Encounter Details Date Type Department Care Team (Late st Contact Info) Description 04/11/2024 Orders Only Lab Mobile Phlebotomy [facility] [address] [facility] [place] [id number] [facility] [address] [place] [address] Paroxysmal atrial fibrillation (HCC)* Allergies Active Allergy Reactions Criticality Noted Date Comments Iodinated Contrast Media 12/15/2010 documented as of this encounter (statuses as of 04/11/2024) Medications Medication Sig Dispensed Refills Start Date [...] QUEtiapine Fumarate 25 MG Oral Tablet (SEROquel) / at bedtime when instructed to start 30 [...] as of this encounter (statuses as of 04/11/2024) Active Problems Problem Noted Date Diagnosed Date [...] as of this encounter (statuses as of 04/11/2024) Resolved Problems Problem Noted Date Diagnosed Date [...] as of this encounter (statuses as of 04/11/2024) Immunizations Name Administration Dates Next Due COVID-19 [...] 04/17/2024 10:00 AM EDT Office Visit Cardiology, [facility] [address] [address] Tristen Otto PA-C [address] [address] 04/21/2024 1:40 PM EDT Anticoagulation Pharmacy, [facility] [place] [address] [place] [address] Pharmacist1, [facility] [address] [place] [address] 05/30/2024 1:00 PM EDT Office Visit Neurology [facility] [place] [address] [place] [address] Tonja Rivas MD [address] [place] [address] 07/22/2024 1:45 PM EDT [facility], [facility] [place] [address] [place] [address] Wili Mckeon MD [address] [phone] Pending Results Name Type Priority Associated Diagnoses Date /Time PT INR Lab Routine Paroxysmal atrial fibrillation (HCC) 04/11/2024 12:29 PM EDT Scheduled Orders Name Type Priority Associated Diagnoses Orde r Schedule PT INR Lab Routine Paroxysmal atrial fibrillation (HCC) Expected: 04/11/2024, Expires: 04/11/2025 Health Maintenance Due Date Last Done Comments [...] Screening 10/01/2024 10/01/2023 CKD HGB USE SMARTSET 56455 03/14/202503/14, 05/23/2023, 05/10/2022, Additional history exists CKD PHOS USE SMARTSET 77230 03/14/202502/23, 12/02/2018, 03/14/2016, Additional history exists Pneumococcal [...] as of this encounter Visit Diagnoses Diagnosis Paroxysmal atrial fibrillation (HCC)- Primary Atrial fibrillation documented in this encounter Advance Directives Documents on File Type Date Recorded Patient Er Nurse Expl anation Advance Directives and Living Will 07/16/2017 LIVING WILL Power of Fern Cutter 07/16/2017 POWER OF A TTORNEY DURABLE HEALTH CARE POA Healthcare Agents on File Name Relationship Healthcare Agent Relationshi p Communication Shelly Story Spouse Health Care Agen t (per Health Care Power of Fern Cutter document) Care Teams Copier Operator Relationship Specialty Start Date End Date Jordana Hopkins DO [address] [place] [address] PCP - General Family Medicine 03/05/17 documented as of this encounter
--- OUTSIDE RECORDS SUMMARY | 2024-08-23 23:51 | External Medical Summary | Summary of Care ---
Author Name Unknown Organization [facility] Address [address] [place] [address] Phone [phone] Care Team Providers Care Patient Care Representative Name Role Phone Jordana Hopkins DO Primary Care Provider Reason for Visit * Reason Comments Follow Up 7 month follow up. E home in feet is better then when [employer] message was sent. Compression socks questions. Denies chest pain, palpitations, SOB and dizziness. 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; Ventricular tachycardia (HCC); Alzheimer's dementia without behavioral disturbance (HCC); Sinus node dysfunction (HCC); Chronic kidney disease, stage 3a (HCC); Frequent falls; PAF (paroxysmal atrial fibrillation) ([facility]) Allergies Active Allergy Reactions Criticality Noted Date Comments Iodinated Contrast Media 12/15/2010 documented as of this encounter (statuses as of 04/20/2024) Medications Medication Sig Dispensed Refills Start Date End Date Status nitroglycerin (NITROSTAT) 0.4 MG SUBLIndications:S pecial screening for malignant neoplasms, colon Place 1 Tab under the tongue every 5 minutes as needed for Pain, Chest. Every 5 minutes x 3 for chest pain. 10 Tab 5 02/11/2018 Active Additional Information Patient not taking.Reported on 04/17/2024 Warfarin Sodium 5 MG Oral Tablet (Coumadin)Indicat [...] 10/10/2023 Levothyroxine Sodium 88 MCG Oral Tablet (Levoxyl)Indicati [...] 10 MG Oral Tablet (Aricept)Indicati ons:Memory loss Take 1 Tablet by mouth in the morning. Take with largest meal of the day.. 90 Tablet 03/21/2024 Active Rosuvastatin Calcium 5 MG Oral Tablet (Crestor)Indicati ons:Dyslipidemia, goal LDL below 70 Take 1 Tablet by mouth in the morning. 90 Tablet 3 03/21/2024 Active Metoprolol Succinate ER 100 MG Oral Tablet Extended Release 24 Hour (toPROL XL)Indications:HT N, goal below 140/90,Nonsustain ed ventricular tachycardia (HCC) Take 1 Tablet by [...] 03/21/2024 Active Finasteride 5 MG Oral Tablet (Proscar)Indicati ons:BPH with obstruction/lower urinary tract symptoms Take 1 Tablet by mouth in the morning. 90 Tablet 3 03/21/2024 Active Losartan Potassium 50 MG Oral Tablet (Cozaar)Indicatio ns:HTN, goal below 140/90 Take 1 Tablet by mouth in the morning. 90 Tablet 3 03/21/2024 Active Amiodarone HCl 200 MG Oral Tablet (Cordarone)Indica tions:Nonsustaine d ventricular tachycardia (HCC) Take 0.5 Tablets by mouth daily with breakfast. 45 Tablet 3 03/21/2024 Active ASPIRIN EC LOW STRENGTH TBEC 81 MG OR take one tablet daily 34 11 01/06/2003 4 Discontinue d(Patient preference/ discontinua tion) Cholecalciferol (VITAMIN D) 1000 UNIT Capsule 1 Capsule in the morning. 4 Discontinue d(Patient preference/ discontinua tion) documented as of this encounter (statuses as of 04/20/2024) Active Problems Problem Noted Date Diagnosed Date Atherosclerotic heart diseas e of greenville coronary artery with other forms of angina [...] as of this encounter (statuses as of 04/20/2024) Resolved Problems Problem Noted Date Diagnosed Date [...] as of this encounter (statuses as of 04/20/2024) Immunizations Name Administration Dates Next Due COVID-19 [...] the money to buy more. Never true 01/08/20 24 Within the past 12 months, t [...] Sign Reading Time Taken Comments Blood Pressure 136/74 04/17/2024 9:56 AM EDT Pulse 68 04/17/2024 9:56 AM EDT Temperature - - Respiratory Rate 16 04/17/2024 9:56 AM EDT Oxygen Saturation - - Inhaled Oxygen Concentration - - Weight 78.5 kg (173 lb) 04/17/2024 9:56 AM EDT Height - - Body Mass Index 24.82 11/07/2023 8:01 AM EST documented in this encounter Progress Notes * Tristen Otto PA-C - 04/17/2024 10:00 AM EDT History of Present Illness: Isabela Story is a 89 year old male here today for cardiology evaluation. Accompanied by his Progressive decline noted Now living at [facility] Three falls in the last month, all at night trying when trying to get up to the bathroom on his ownwithout using the walker. Weight is down 20 pounds since last evaluation in August, most of which was recent. No reported chest pain, palpitations, or unusual shortness of breath. Previously observed left greater than right lower extremity edema resolved with use of compression stockings. No reported syncope. 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 (Patient taking differently: Take 0.5 to 1 tab by mouth once daily as directed by [facility]. MWF 1 tab T TH Sat Sun 0.5 tab) 90 Tablet 3 Levothyroxine Sodium 88 MCG Oral Tablet (Levoxyl) TAKE 1 TABLET BY MOUTH ONCE DAILY IN THE MORNING (AT LEAST 30 MINUTES PRIOR TO BREAKFAST OR OTHER MEDICATIONS) 90 Tablet 3 Polyethylene Glycol 3350 17 GM Oral Packet (MiraLax) Take 1 Packet by mouth in the morning. QUEtiapine Fumarate 25 MG Oral Tablet (SEROquel) 1/2 at bedtime when instructed to start 30 Tablet 2 levETIRAcetam ER 750 MG Oral Tablet Extended Release 24 Hour (Keppra XR) Take 2 Tablets by mouth atbedtime. 180 Tablet 1 levETIRAcetam ER 500 MG Oral Tablet Extended Release 24 Hour (Keppra XR) TAKE 1 TABLET BY MOUTH AT BEDTIME ALONG WITH 750MG TABLETS 90 Tablet 1 Donepezil HCl 10 MG Oral Tablet (Aricept) Take 1 Tablet by mouth in the morning. Take with largest meal of the day.. 90 Tablet 0 Rosuvastatin Calcium 5 MG Oral Tablet (Crestor) [...] meal of the day. 90 Capsule 1 Memantine HCl 10 MG Oral Tablet (Namenda) Take 1 Tablet by mouth 2 times a day with morning and evening meals. 180 Tablet 1 Finasteride 5 MG Oral Tablet (Proscar) Take 1 Tablet by mouth in the morning. 90 Tablet 3 Losartan Potassium 50 MG Oral Tablet (Cozaar) Take 1 Tablet by mouth in the morning. 90 Tablet 3 Amiodarone HCl 200 MG Oral Tablet (Cordarone) Take 0.5 Tablets by mouth daily with breakfast. 45 Tablet 3 nitroglycerin (NITROSTAT) 0.[address] 1 Tab under the tongue every 5 minutes as needed for Pain, Chest. Every 5 minutes x 3 for chest pain. (Patient not taking: Reported on 04/17/2024) 10 Tab 5 Cetirizine HCl 10 MG Oral Tablet Chewable (ZyrTEC) Take 1 Tablet by mouth in the morning. (Patient not taking: Reported on 03/17/2024) No current facility-administered medications for this visit. OBJECTIVE/PHYSICAL EXAMINATION: BP 136/74 | Pulse 68 | Resp 16 | Wt 78.5 kg (173 lb) | BMI 24.82 kg/m | BSA 1.97 m Examined in a chair General: A&Ox3. NAD. HENT: Normocephalic. Atraumatic. Eyes: PER. Conjunctiva pink, sclera clear. Neck: No carotid bruits. No JVD. No HJR. Heart: RRR, 66 bpm. Soft apical systolic murmur. No rub. No gallop. PMI is nondisplaced. Lungs: Clear to auscultation. Abdomen: +BS. Soft. Nontender. No masses or organomegaly. Extremities: Minimal edema. No clubbing. No cyanosis. Neurology: Demented [...] wall is hypokinetic. LVEF calculated at 67%. September 24, 2023 TTE Interpretation Summary ([facility], Dr. Coelho): Normal size LV. Moderate concentric LVH. Basal septum is thickened in angulated consistent with sigmoid septum. Normal LV wall motion. EF55 to 60%. Mildly calcified aortic valve without hemodynamically significant aortic valve stenosis.Mild mitral annular calcification. Mild to moderate mitral regurgitation. Moderate tricuspid regurgitation. RVSP elevated at 50 to 60 mmHg. March 14, 2024 EKG: AV dual paced rhythm. ASSESSMENT AND RECOMMENDATIONS/PLAN: ASCVD Prior coronary interventions to the right coronary with chronic right coronary occlusion 2000, moderate diffuse coronary atherosclerosis. 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 Quick look device interrogation today demonstrated appropriate function, 2 months remaining longevity. to do a transmission in one month Generator exchanged discussed Paroxysmal atrial flutter. Controlled. Continue beta-david and amiodarone LFTs normal on March 14, 2024 with an AST of 27, ALT 20, alk-phos 81. TSH normal on March 14, 2024, 1.308 uIU/mL Nonsustained ventricular tachycardia. Continue beta-david therapy and amiodarone. Symptomatic orthostatic hypotension, significantly improved following multiple medical changes in 2019. Hypertension. Controlled. Continue the current antihypertensive regimen. Chronic Coumadin anticoagulation prescribed secondary to atrial fibrillation and an unprovoked leftupper extremity DVT in October 2018. Hypercoagulable workup negative at that time. No prescriptioncoverage. Risks and benefits of anticoagulation discussed with patient and spouse noting the progressive decline recently, including three falls. In my opinion, the risks of anticoagulation appear thi greater than the benefit. Hyperlipidemia. Atorvastatin discontinued secondary to abnormal LFTs. Tolerating low dose rosuvastatin with dose previously reduced due to abnormal LFTs LDL cholesterol 70 mg/dL on 05/23/2023 Continue rosuvastatin 5 mg/day Fatty liver, 2.3 cm cyst in the left hepatic lobe, followed by GI Stage III chronic kidney disease Large left kidney cyst Pancreatic tail cystic lesion. Hypothyroidism. Progressive dementia. Seizure disorder Chronic cough. Hiatal hernia. Routine Cardiology follow-up, or as needed. ER with emergencies. Tristen Otto PA-C Department of Cardiology I spent a total of 30-39 minutes (exact time 38 mins) on the date of service in preparation, delivery, and documentation of the care provided to Isabela Story excluding any time spent in the performance of separately billed services. This visit involved medical care services related to at least one serious condition or complex condition requiring ongoing care. This chart was completed in part ut [employer] Voice [employer]ognition [employer]. Grammatical errors, random word insertions, prounoun errors, and incomplete sentences are an occasional consequence of this system due to software limitations, ambient noise, and hardware issues. Any formal questions or concerns about the content, text, or information contained within the body of this dictation should be directly addressed to theprovider for clarification. documented in this encounter Nursing Notes * Torrey Lockhart LPN - 04/17/2024 9:55 AM EDT Patient identified by full name and date of Chief Complaint Patient presents with Follow Up 7 month follow up. Edema in feet is better then when [employer] message was sent. Compression socks questions. Denies chest pain, palpitations, SOB and dizziness. Examination Room: 2 Name: Isabela Story Date of : (1935). Reason for Visit: Follow up Interim Hospitalization(s): [facility] ED 03/14/24 Problems/Concerns: See chief complaint Chest Pain/SOB: Denies [facility] Discussed: Yes [facility] is a way you can talk to your provider online through e-mail. Would you like to sign up? I can activate it for you? ALREADY ACTIVE Patient was instructed to not get up on the exam table until directed and assisted by their provider; patient is to remain seated in the chair/ wheelchair/ exam table for fall prevention and safety reasons. Patient is aware to have assistance to step down off exam table with personnel. Patient voiced full comprehension of instructions. documented in this encounter Plan of Treatment Upcoming Encounters Date Type Department Care Team (Late st Contact Info) Description 05/30/2024 1:00 PM EDT Office Visit Neurology [facility] [address] [facility] [place] [address] Tonja Rivas MD [address] [facility] [place] [address] 07/22/2024 1:45 PM EDT Office Visit Urology, [facility] [address] [address] Wili Mckeon MD [address] [address] 10/24/2024 1:30 PM EST Office Visit Cardiology, [facility] [address] [address] Tristen Otto PA-C [address] [address] Health Maintenance Due Date Last Done Comments Albumin/Creatinine Ratio 12/03/2019 019, 03/14/2016, 08/09/2011, Additional history exists DTaP,Tdap,and Td Vaccines (2 - Td or Tdap) 09/29/2021 09/29/2011, 09/05/1999 COVID-19 Vaccine (2022-24 season) 2023 08/06/2023, 08/02/2022, 05/11/2022, Additional history exists TSH 05/23/2024 05/23/2023, 04/24, 11/09/2021, Additional history exists Influenza Vaccine (FLU shot) (#1) 2024 07/02/2023, 07/07/2022, 06/15/2021, Additional history exists Depression Screening 10/01/2024 10/01/2023 CKD HGB USE SMARTSET 05680 03/14/202503/14, 05/23/2023, 05/10/2022, Additional history exists CKD PHOS USE SMARTSET 12038 03/14/202502/23, 12/02/2018, 03/14/2016, Additional history exists Pneumococcal [...] as of this encounter Visit Diagnoses Diagnosis CHR ISCHEMIC HRT DIS NOS- Primary Chronic ischemic heart disease, unspecified 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 Ventricular tachycardia (HCC) Paroxysmal ventricular tachycardia Alzheimer's dementia without behavioral disturbance (HCC) Alzheimer's disease Sinus node dysfunction (HCC) Sinoatrial node dysfunction Chronic kidney disease, stage 3a (HCC) Frequent falls Personal history of fall PAF (paroxysmal atrial fibrillation) (HCC) Atrial fibrillation documented in this encounter Advance Directives Documents on File Type Date Recorded 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
--- OUTSIDE RECORDS SUMMARY | 2024-08-23 23:51 | External Medical Summary ---
Author Name Unknown Address Unknown Organization [facility] - [address] [place] [address] Laboratory Report Ordering Provider Test Date Status JACKELIN CANELA 05/02/2024 06:40:00 Final Observation Date Value Abnormality Reference (Units ) Status BUN 05/02/2024 06:40:00 29 Above high normal 6-20 (mg/dL) Final Creatinine 05/02/2024 06:40:00 1.6 Above high normal 0.6-1.2 (mg/dL) Final Glomerular filtration rate/1.73 sq M.predicted [Volume Rate/Area] in Serum, Plasma or Blood by Creatinine-based formula (CKD-EPI) 05/02/2024 06:40:00 40 Below low normal >=60 (mL/min) Final eGFR is calculated based on the CKD-EPI 2020 equation. Sodium 05/02/2024 06:40:00 143 135-146 (m mol/L) Final Potassium 05/02/2024 06:40:00 4.3 3.5-5.1 (m mol/L) Final Cl 05/02/2024 06:40:00 107 98-107 (mm ol/L) Final CO2 05/02/2024 06:40:00 26 22-32 (mmo l/L) Final Anion gap 05/02/2024 06:40:00 10 7-15 (mmol /L) Final Glucose 05/02/2024 06:40:00 84 70-120 (mg /dL) Final Calcium 05/02/2024 06:40:00 8.9 8.4-10.2 ( mg/dL) Final Performing Location LABORATORY [facility] 0 - [address] [place] [address]
--- OUTSIDE RECORDS SUMMARY | 2024-08-23 23:51 | External Medical Summary ---
Author Name Unknown Address Unknown Organization K01:LABORATORY C - [address] [place] [address] Laboratory Report Ordering Provider Test Date Status JACKELIN CANELA 05/02/2024 06:40:00 Final Observation Date Value Abnormality Reference (Units ) Status T4, Free 05/02/2024 06:40:00 1.3 0.9-1.7 (n g/dL) Final Performing Location [facility] - [address] [place] [address]
--- OUTSIDE RECORDS SUMMARY | 2024-08-23 23:51 | External Medical Summary ---
Author Name Unknown Address Unknown Organization K[facility]:LABORATORY [facility] - [address] [place] [address] Laboratory Report Ordering Provider Test Date Status ROLAJACKELIN 05/02/2024 06:40:00 Final Observation Date Value Abnormality Reference (Units ) Status Vitamin B12 05/02/2024 06:40:00 [phone] (pg/mL) Final Performing Location LAB[facility]ATORY [facility] - [address] [place] [address]
--- OUTSIDE RECORDS SUMMARY | 2024-08-23 23:51 | External Medical Summary ---
Author Name Unknown Address Unknown Organization [facility] [address] - [address] [place] [address] Laboratory Report Ordering Provider Test Date Status JACKELIN CANELA 05/02/2024 06:40:00 Final Observation Date Value Abnormality Reference (Units ) Status WBC, Total 05/02/2024 06:40:00 7.36 4.00-10.8 0 (K/uL) Final RBC 05/02/2024 06:40:00 3.87 4.50-5.25 (M/uL) Final Hemoglobin 05/02/2024 06:40:00 12.3 Below low normal 14 .0-16.8 (g/dL) Final HCT 05/02/2024 06:40:00 37.8 Below low normal 40. 0-48.4 (%) Final MCV 05/02/2024 06:40:00 97.7 82.0-99.5 (fL) Final MCH 05/02/2024 06:40:00 31.8 27.0-34.0 (pg) Final MCHC 05/02/2024 06:40:00 32.5 32.0-36.0 (g/dL) Final RDW 05/02/2024 06:40:00 13.9 11.5-15.5 (%) Final Platelets 05/02/2024 06:40:00 165 140-400 (K /uL) Final MPV 05/02/2024 06:40:00 10.8 6.6-11.1 ( fL) Final Performing Location LABORATORY [facility] 0 - [address] [place] [address]
--- OUTSIDE RECORDS SUMMARY | 2024-08-23 23:52 | External Medical Summary | Summary of Care ---
Author Name Unknown Organization [facility] Address [address] [place] [address] Phone [phone] Care Team Providers Care Pretzel Packer Name Role Phone Jordana Hopkins DO Primary Care Provider Reason for Visit * Reason Onset Date Comments Medication Refill 03/21/2024 Encounter Details Date Type Department Care Team (Late st Contact Info) Description 03/21/2024 Refill Neurology [facility] [place] [address] [place] [address] Dorothea Rivas MD [address] [place] [address] Memory loss Allergies Active Allergy Reactions Criticality Noted Date Comments Iodinated Contrast Media 12/15/2010 documented as of this encounter (statuses as of 03/21/2024) Medications Medication Sig Dispensed Refills Start Date End Date Status ASPIRIN EC LOW STRENGTH TBEC 81 MG OR take one tablet daily 34 11 01/06/2003 Active Cholecalciferol (VITAMIN D) 1000 UNIT Capsule 1 Capsule in the morning. Active nitroglycerin (NITROSTAT) 0.4 MG SUBLIndications:S pecial [...] the day. 30 Capsule 5 09/06/2023 Active Cetirizine HCl 10 MG Oral Tablet Chewable (ZyrTEC) Take 1 Tablet by mouth in the morning. Active Polyethylene Glycol 3350 17 GM Oral Packet (MiraLax) Take 1 Packet by mouth in the morning. Active Memantine HCl 10 MG Oral Tablet (Namenda) TAKE 1 TABLET BY MOUTH TWO TIMES DAILY WITH MORNING AND EVENING MEALS. 180 Tablet 1 02/11/2024 Active QUEtiapine Fumarate 25 MG Oral Tablet [...] mouth daily. 90 Tablet 3 03/21/2024 Active Finasteride 5 MG Oral Tablet [...] with breakfast. 45 Tablet 3 03/21/2024 Active levETIRAcetam ER 750 MG Oral Tablet Extended Release 24 Hour (Keppra XR) TAKE 2 TABLETS BY MOUTH AT BEDTIME 180 Tablet 1 11/08/2023 4 Discontinue d(Refill) levETIRAcetam ER 500 MG Oral Tablet Extended Release 24 Hour (Keppra XR) TAKE 1 TABLET BY MOUTH AT BEDTIME ALONG WITH 750MG TABLETS 90 Tablet 1 12/07/2023 4 Discontinue d(Refill) Donepezil HCl 10 MG Oral Tablet (Aricept)Indicati ons:Memory loss TAKE 1 TABLET BY MOUTH EVERY DAY WITH LARGEST MEAL OF THE DAY 90 Tablet 01/17/2024 4 Discontinue d(Refill) documented as of this encounter (statuses as of 03/21/2024) Active Problems Problem Noted Date Diagnosed Date Atherosclerotic heart diseas e of [place] coronary artery with other forms of angina [...] as of this encounter (statuses as of 03/21/2024) Resolved Problems Problem Noted Date Diagnosed Date [...] as of this encounter (statuses as of 03/21/2024) Immunizations Name Administration Dates Next Due COVID-19 [...] encounter Miscellaneous Notes * Telephone Encounter - Dorothea Rivas MD - 03/21/2024 3:04 PM EDTSigned Prescriptions: Disp Refills levETIRAcetam ER 750 MG Oral Tablet Extend*180 Ta*1 Sig: Take 2 Tablets by mouth at bedtime. Authorizing Provider: DOROTHEA RIVAS levETIRAcetam ER 500 MG Oral Tablet Extend*90 Tab*1 Sig: TAKE 1 TABLET BY MOUTH AT BEDTIME ALONG WITH 750MG TABLETS Authorizing Provider: DOROTHEA RIVAS Donepezil HCl 10 MG Oral Tablet (A ricept) 90 Tab*0 Sig: Take 1 Tablet by mouth in the morning. Take with largest meal of the day.. Authorizing Provider: DOROTHEA RIVAS * Telephone Encounter - Mitra Farris LPN - 03/21/2024 1:59 PM EDTPending Prescriptions: Disp Refills levETIRAcetam ER 750 MG Oral Tablet Extend*180 Ta*1 Sig: Take 2 Tablets by mouth at bedtime. levETIRAcetam ER 500 MG Oral Tablet Extend*90 Tab*1 Sig: TAKE 1 TABLET BY MOUTH AT BEDTIME ALONG WITH 750MG TABLETS Donepezil HCl 10 MG Oral Tablet (Aricept) 90 Tab*0 Sig: Take 1 Tablet by mouth in the morning. Take with largest meal of the day.. * Telephone Encounter - Mitra Farris LPN - 03/21/2024 1:58 PM EDT Patient needs meds sent to [facility] documented in this encounter Plan of Treatment Upcoming Encounters Date Type Department Care Team (Late st Contact Info) Description 04/17/2024 10:00 AM EDT Office Visit Cardiology, [facility] [address] [facility] [place] [address] Tristen Otto PA-C [address] [facility] [place] [address] 04/21/2024 1:40 PM EDT Anticoagulation Pharmacy, [facility] [address] [facility] [place] [address] Pharmacist1, [facility] [address] [facility] [place] [address] 05/01/2024 1:00 PM EDT Office Visit Neurology [facility] [address] [facility] [place] [address] Dorothea Rivas MD [address] [place] [address] 07/22/2024 1:45 PM EDT Office Visit Urology, [facility] [place] [address] Wili Mckeon MD [address] [place] [id number] Health Maintenance Due Date Last Done Comments Albumin/Creatinine Ratio 12/03/2019 019, 03/14/2016, 08/09/2011, Additional history exists CKD PHOS USE SMARTSET 63165 12/03/201911/22, 03/14/2016, 08/29/2012 DTaP,Tdap,and Td Vaccines (2 - Td or Tdap) 09/29/2021 09/29/2011, 09/05/1999 COVID-19 Vaccine (2022- season) 2023 05/11/2022, 07/29/2021, 11/23/2020, Additional history exists CKD HGB USE SMARTSET 02266 05/23/202405/23, 05/10/2022, 11/09/2021, Additional history exists TSH 05/23/2024 05/23/2023, 04/24, 11/09/2021, Additional history exists Depression Screening 10/01/2024 10/01/2023 [...] Documents on File Type Date Recorded 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
--- OUTSIDE RECORDS SUMMARY | 2024-08-23 23:52 | External Medical Summary | Summary of Care ---
Author Name Unknown Organization [facility] Address [address] [place] [address] Phone [phone] Care Team Providers Care Electric Clock Mechanic Name Role Phone Jordana Hopkins DO Primary Care Provider Reason for Visit * Reason Onset Date Comments Medication Refill 03/21/2024 Encounter Details Date Type Department Care Team (Late st Contact Info) Description 03/21/2024 Refill Cardiology, [facility] [address] [place] [address] Carlos Mills DO [address] [place] [address] Allergies Active Allergy Reactions Criticality Noted Date [...] Tablet (Crestor)Indication s:Dyslipidemia, goal LDL below 70 TAKE 1 TABLET BY MOUTH EVERY DAY 90 Tablet 3 09/07/2023 Active Cetirizine HCl 10 MG Oral Tablet Chewable (ZyrTEC) Take 1 Tablet by mouth in the morning. Active Polyethylene Glycol 3350 17 GM Oral Packet (MiraLax) Take 1 Packet by mouth in the morning. Active Losartan Potassium 50 MG Oral Tablet (Cozaar) Take 1 Tablet by mouth in the morning. 90 Tablet 3 10/12/2023 Active Finasteride 5 MG Oral Tablet (Proscar)Indication s:BPH with obstruction/lower urinary tract symptoms Take 1 Tablet by mouth in the morning. 90 Tablet 3 11/07/2023 Active levETIRAcetam ER 750 MG Oral Tablet Extended Release 24 Hour (Keppra XR) TAKE 2 TABLETS BY MOUTH AT BEDTIME 180 Tablet 1 11/08/2023 Active Amiodarone HCl 200 MG Oral Tablet (Cordarone)Indicati ons:Nonsustained ventricular tachycardia (HCC) TAKE 1/2 TABLET BY MOUTH EVERY MORNING 45 Tablet 3 11/07/2023 Active levETIRAcetam ER 500 MG Oral Tablet Extended Release 24 Hour (Keppra XR) TAKE 1 TABLET BY MOUTH AT BEDTIME ALONG WITH 750MG TABLETS 90 Tablet 1 12/07/2023 Active Metoprolol Succinate ER 100 MG Oral Tablet Extended Release 24 Hour (toPROL XL)Indications:HTN, goal below 140/90,Nonsustained ventricular tachycardia (HCC) Take 1 Tablet by mouth daily. 90 Tablet 3 12/11/2023 Active Donepezil HCl 10 MG Oral Tablet (Aricept)Indication s:Memory loss TAKE 1 TABLET BY MOUTH EVERY DAY WITH LARGEST MEAL OF THE DAY 90 Tablet 01/17/2024 Active Memantine HCl 10 MG Oral Tablet (Namenda) TAKE 1 TABLET BY MOUTH TWO TIMES DAILY WITH MORNING AND EVENING MEALS. 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 [...] 18 years and over) Not on file 4 Are you (or your family) karen eless [...] encounter Miscellaneous Notes * Telephone Encounter - Tayler Torres LPN - 03/21/2024 12:46 PM EDTRefused Prescriptions: Disp Refills Losartan Potassium 50 MG Oral Tablet (Coza*90 Tab*3 Sig: Take 1Tablet by mouth in the morning.Refused By: TAYLER TORRES MRele for Refusal: Duplicate Request------ documented in this encounter Plan of Treatment Upcoming Encounters Date Type Department Care Team (Late st Contact Info) Description 04/17/2024 10:00 AM EDT Office Visit Cardiology, [facility] [address] [place] [address] Tristen Otto PA-C [address] [place] [address] 04/21/2024 1:40 PM EDT Anticoagulation Pharmacy, [facility] 200 [facility] [place], [place] [address] Pharmacist1, [facility] 200 [facility] [place] [address] 05/01/2024 1:00 PM EDT Office Visit Neurology [facility] [address] [facility] [place] [address] Tonja Rivas MD 200 [facility] [place] [address] 07/22/2024 1:45 PM EDT Office Visit Urology, [facility] 132 [facility] [place] [id number] Wili Mckeon MD [address] [place] [address] Health Maintenance Due Date Last Done Comments Albumin/Creatinine Ratio 12/03/2019 019, 03/14/2016, 08/09/2011, Additional history exists CKD PHOS USE SMARTSET 17164 12/03/201911/22, 03/14/2016, 08/29/2012 DTaP,Tdap,and Td Vaccines (2 - Td or Tdap) 09/29/2021 09/29/2011, 09/05/1999 COVID-19 Vaccine ( season) 2023 05/11/2022, 07/29/2021, 11/23/2020, Additional history exists CKD HGB USE SMARTSET 57665 05/23/202405/23, 05/10/2022, 11/09/2021, Additional history exists TSH [...] Documents on File Type Date Recorded Patient Improvement Leader Expl anation Advance Directives and Living Will 07/16/2017 LIVING WILL Power of Multiple Pressure Riveter Operator 07/16/2017 POWER OF A TTORNEY DURABLE HEALTH CARE POA Healthcare Agents on File Name Relationship Healthcare Agent Relationshi p Communication Shelly Story Spouse Health Care Agen t (per Health Care Power of Multiple Pressure Riveter Operator document) Care Teams Electric Clock Mechanic Relationship Specialty Start Date End Date Jordana Hopkins DO [address] [place] [address] PCP - General Family Medicine 03/05/17 documented as of this encounter
--- OUTSIDE RECORDS SUMMARY | 2024-08-23 23:52 | External Medical Summary | Summary of Care ---
Author Name Unknown Organization [facility] Address [address] [place] [address] Phone [phone] Care Team Providers Care Driver Starting Gate Name Role Phone Jordana Hopkins DO Primary Care Provider Reason for Visit * Reason Comments Outpatient Testing Encounter Details Date Type Department Care Team (Late st Contact Info) Description 03/29/2024 12:20 PM EDT Laboratory Laboratory, [facility] [address] [place] [address] Amarjit Specimen Drop Off [facility] [address] [place] [address] UTI (urinary tract infection) Allergies Active Allergy Reactions Criticality Noted Date Comments Iodinated Contrast Media 12/15/2010 documented as of this encounter (statuses as of 03/29/2024) Medications Medication Sig Dispensed Refills Start Date [...] as of this encounter (statuses as of 03/29/2024) Active Problems Problem Noted Date Diagnosed Date Atherosclerotic heart diseas e of [place] coronary artery with other forms of angina [...] as of this encounter (statuses as of 03/29/2024) Resolved Problems Problem Noted Date Diagnosed Date [...] as of this encounter (statuses as of 03/29/2024) Immunizations Name Administration Dates Next Due COVID-19 mRNA, LNP-s, No Pre serve, 2-Dose Series (Moderna) 05/11/2022,07/29/2021,11/23/2020,09/25 H1N1 2009 Influenza, IM 02/03/2010 Pneumococcal Conjugate Vacc, 13 Valent (Prevnar) 02/05/2015 Pneumococcal Polysaccharide PPV23 (Pneumovax) 01/10/2013,09/09/2001 Season Influenza, Quad, PF, Adjuvanted, 65+ Yrs, IM (FLUAD) 07/13/2020 Seasonal Influenza Virus Vac cine, Unspecified Formulation 07/13/2020,06/23/2019,08/09/2011,07/26,07/31/2005,08/16/2004,07/17/20 03,07/25/2000,08/04/1998 Seasonal Influenza, PF, 6 M & above, IM , (FluLaval or Fluzone) 08/06/2018,06/20/2017 Seasonal Influenza, Quadriva lent Hd (Fluzone Hd) 07/02/2023,07/07/2022,06/15/2021 Seasonal Influenza, Quadriva lent, No Preserve, IM 06/26/2016,06/28/2015 Seasonal Influenza, Split, I IV3, With Preserve, Inj 09/18/2014,07/17/2013,06/28/2012,06/25,07/14/2009,07/08/2007,09/10/20 06,07/29/2002,09/09/2001 Seasonal Influenza, Trivalen t, Adjuvanted, 65+ yrs 06/23/2019 TD - Tetanus/Diptheria (ADULT) 09/05/1999 1 11/06/2008 TDAP, Age 7 and older, IM (Adacel) [...] on file Are you (or your family) akren eless or worried that you might be [...] 04/17/2024 10:00 AM EDT Office Visit Cardiology, [facility] [address] [place] [address] Tristen Otto PA-C [address] [place] [address] 04/21/2024 1:40 PM EDT Anticoagulation Pharmacy, [place] [address] [place] [address] Pharmacist1, [facility] [address] [place] [address] 05/01/2024 1:00 PM EDT Office [facility] [place] [address] [place] [address] Tonja Rivas MD [address] [place] [address] 07/22/2024 1:45 PM EDT Office Visit Urology, [facility] [address] [place] [address] Wili Mckeon MD [address] [place] [address] Pending Results Name Type Priority Associated Diagnoses Date /Time URINALYSIS, REFLEX TO MICROSCOPIC Lab Routine UTI (urinary tract infection) 03/29/2024 10:40 AM EDT CULTURE, URINE, QUANTITATIVE Lab Routine UTI (urinary tract infection) 03/29/2024 10:40 AM EDT Health Maintenance Due Date Last Done Comments Albumin/Creatinine Ratio 12/03/2019 019, 03/14/2016, 08/09/2011, Additional history exists CKD PHOS USE SMARTSET 17220 12/03/201911/22, 03/14/2016, 08/29/2012 DTaP,Tdap,and Td Vaccines (2 - Td or Tdap) 09/29/2021 09/29/2011, 09/05/1999 COVID-19 Vaccine ( season) 2023 08/06/2023, 08/02/2022, 05/11/2022, Additional history exists CKD HGB USE SMARTSET 14793 05/23/202405/23, 05/10/2022, 11/09/2021, Additional history exists TSH [...] as of this encounter Visit Diagnoses Diagnosis UTI (urinary tract infection) Urinary tract infection, site not specified documented in this encounter Advance Directives Documents on File Type Date Recorded 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
--- OUTSIDE RECORDS SUMMARY | 2024-08-23 23:52 | External Medical Summary ---
Author Name Unknown Address Unknown Organization [id number]:[facility] [place] [address] [place] [id number] Laboratory Report Ordering Provider Test Date Status RYAN MIRANDA 03/29/2024 10:40:00 Final Observation Date Value Abnormality Reference (Units) Status Bacteria identified in Specimen by Culture 03/29/2024 10:40:00 No significant growth Final Test: Culture, Urine, Quanti tative
Specimen Source: Urine, Unspecified
Specimen Type: Urine
Specimen Date: 03/29/2024 1040
Result Date: 03/30/2024 1341
Result Status: Final result
Resulting Lab: [facility]
[address]
[facility] [address]

CULTURE

No significant growth

null Performing Location [facility] [address] [facility] [address]
--- OUTSIDE RECORDS SUMMARY | 2024-08-23 23:52 | External Medical Summary | Summary of Care ---
Author Name Unknown Organization [facility] Address [address] [place] [address] Phone [phone] Care Team Providers Care Range Aid Name Role Phone Jordana Hopkins DO Primary Care Provider Reason for Visit * Reason Onset Date Comments Medication Refill 03/21/2024 Encounter Details Date Type Department Care Team (Late st Contact Info) Description 03/21/2024 Refill Family Practice [facility] 200 [facility] [place] [address] Jordana Hopkins DO [address] [facility] [address] Encounter for long-term (current) use of medications*; Dysphagia, unspecified type Allergies Active Allergy Reactions [...] with breakfast. 45 Tablet 3 03/21/2024 Active Omeprazole 20 MG Oral Capsule Delayed Release (PriLOSEC)Indicat ions:Dysphagia, unspecified type Take 1 Capsule by mouth in the morning. 1 hour before the first meal of the day. 30 Capsule 5 09/06/2023 4 Discontinue d(Refill) Memantine HCl 10 MG Oral Tablet (Namenda) TAKE 1 TABLET BY MOUTH TWO TIMES DAILY WITH MORNING AND EVENING MEALS. 180 Tablet 1 02/11/2024 4 Discontinue d(Refill) documented as of this encounter (statuses as of 03/21/2024) Active Problems Problem Noted Date Diagnosed Date Atherosclerotic heart diseas e of [place] coronary artery with other forms of angina [...] No 10/01/2023 Does the household have a [facility] source of income? (Household - for ages [...] encounter Miscellaneous Notes * Telephone Encounter - Saurabh Ibarra, [facility] - 03/21/2024 6:45 PM EDTSigned Prescriptions: Disp Refills Omeprazole 20 MG Oral Capsule Delayed Rele*90 Cap*1 Sig: Take 1 Capsule by mouth in the morning. 1 hour before the first meal of the day.Authorizing Provider: JORDANA HOPKINS User: SAURABH DICKERSON Memantine HCl 10 MG Oral Tablet (Namenda) 180 Ta*1Sig: Take 1 Tablet by mouth 2 times a day with morning and evening meals.Authorizing Sarita benton: JORDANA HOPKINS User: SAURABH DICKERSON * Telephone Encounter - Saurabh Ibarra [facility] - 03/21/2024 6:44 PM EDT Rxs resent to alise's * Telephone Encounter - Saurabh Ibarra [facility] - 03/21/2024 6:42 PM EDT Pending Prescriptions: Disp Refills Omeprazole 20 MG Oral Capsule Delayed Rel*30 Cap*5 Sig: Take 1 Capsule by mouth in the morning. 1 hour before the first meal of the day. Memantine HCl 10 MG Oral Tablet (Namenda) 180 Ta*1 Last Visit: 01/14/2024 (in office), 01/08/2023 (telemedicine) Next Visit: Visit date not found If no future appointments scheduled, and last appointment is greater than a year ago, please schedule patient for a follow-up appointment Last date the medication was ordered: 09/06/23, 02/11/24 Pharmacy: [facility] [id number] [place] Is this request for a controlled substance? No Urine Drug Screen:No results found. However, due [...] 04/17/2024 10:00 AM EDT Office Visit Cardiology, [facility] [address] [place] [address] [address] Tristen Otto PA-C [address] [place] [address] 04/21/2024 1:40 PM EDT Anticoagulation Pharmacy, [facility] 200 [facility] [place] [address] Pharmacist1, [facility] [address] [facility] [place] [address] 05/01/2024 1:00 PM EDT Office Visit Neurology [facility] 200 [facility] [place] [address] Tonja Rivas MD 200 [facility] [place] [address] 07/22/2024 1:45 PM EDT Office Visit Urology, [facility] [address] [place] [address] Wili Mckeon MD [address] [place] [address] Scheduled Orders Name Type Priority Associated Diagnoses Orde r Schedule MAGNESIUM Lab Routine Encounter for long-term (current) use of medications Expected: 03/21/2024 (Approximate), Expires: 03/21/2025 VITAMIN B12 Lab Routine Encounter for long-term (current) use of medications Expected: 03/21/2024 (Approximate), Expires: 03/21/2025 Health Maintenance Due Date Last Done Comments Albumin/Creatinine Ratio 12/03/2019 019, 03/14/2016, 08/09/2011, Additional history exists CKD PHOS USE SMARTSET 51459 12/03/201911/22, 03/14/2016, 08/29/2012 DTaP,Tdap,and Td Vaccines (2 - Td or Tdap) 09/29/2021 09/29/2011, 09/05/1999 COVID-19 Vaccine ( season) 2023 05/11/2022, 07/29/2021, 11/23/2020, Additional history exists CKD HGB USE SMARTSET 54270 05/23/202405/23, 05/10/2022, 11/09/2021, Additional history exists TSH [...] as of this encounter Visit Diagnoses Diagnosis Encounter for long-term (current) use of medications- Primary Encounter for long-term (current) use of other medications Dysphagia, unspecified type documented in this encounter Advance Directives Documents on File Type Date Recorded Patient Youth Teacher Expl anation Advance Directives and Living Will 07/16/2017 LIVING WILL Power of Superintendent Landfill Operations 07/16/2017 POWER OF A TTORNEY DURABLE HEALTH CARE POA Healthcare Agents on File Name Relationship Healthcare Agent Relationshi p Communication Shelly Story Spouse Health Care Agen t (per Health Care Power of Superintendent Landfill Operations document) Care Teams Range Aid Relationship Specialty Start Date End Date Jordana Hopkins DO [address] [place] [address] PCP - General Family Medicine 03/05/17 documented as of this encounter
--- OUTSIDE RECORDS SUMMARY | 2024-08-23 23:52 | External Medical Summary ---
Author Name Unknown Address Unknown Organization [id number]:[facility] [address] - [address] [place] [address] Laboratory Report Ordering Provider Test Date Status RYAN MIRANDA 03/29/2024 10:40:00 Final Observation Date Value Abnormality Reference (Units ) Status RBC, Urine 03/29/2024 10:40:00 0-2 0-2 (/HPF) Final WBC, Urine 03/29/2024 10:40:00 0-2 0-2 (/HPF) Final Bacteria [#/area] in Urine sediment by Microscopy high power field 03/29/2024 10:40:00 0-25 0-25 (/HPF) Final Hyaline casts, Urine 03/29/2024 10:40:00 1-4 Abnormal None (/LPF) Final Performing Location [facility] [address] - [address] [place] [address]
--- OUTSIDE RECORDS SUMMARY | 2024-08-23 23:52 | External Medical Summary | Summary of Care ---
Author Name Unknown Organization [facility] Address [address] [facility] [place] [address] Phone [phone] Care Team Providers Care Jelly Maker Name Role Phone Jordana Hopkins DO Primary Care Provider Reason for Visit * Reason Onset Date Comments [facility]: Screening 03/21/2024 Encounter Details Date Type Department Care Team (Late st Contact Info) Description 03/21/2024 Telephone [facility], [facility] [address] [facility] [place] [address] [facility], Nurse [facility] [address] [facility] [place] [address] [facility]: Screening Allergies Active [...] Packet by mouth in the morning. Active Finasteride 5 MG Oral Tablet (Proscar)Indication s:BPH with obstruction/lower urinary tract symptoms Take 1 Tablet by mouth in the morning. 90 Tablet 3 11/07/2023 Active levETIRAcetam ER 750 MG Oral Tablet Extended Release 24 Hour (Keppra XR) TAKE 2 TABLETS BY MOUTH AT BEDTIME 180 Tablet 1 11/08/2023 Active levETIRAcetam ER 500 MG Oral Tablet Extended Release 24 Hour (Keppra XR) TAKE 1 TABLET BY MOUTH AT BEDTIME ALONG WITH 750MG TABLETS 90 Tablet 1 12/07/2023 Active Donepezil HCl 10 MG Oral Tablet [...] to start 30 Tablet 2 03/17/2024 Active Rosuvastatin Calcium 5 MG Oral Tablet (Crestor)Indication s:Dyslipidemia, goal LDL below 70 Take 1 Tablet by mouth in the morning. 90 Tablet 3 03/21/2024 Active Metoprolol Succinate ER 100 MG Oral Tablet Extended Release 24 Hour (toPROL XL)Indications:HTN, goal below 140/90,Nonsustained ventricular tachycardia (HCC) Take 1 Tablet by mouth daily. 90 Tablet 3 03/21/2024 Active Losartan Potassium [...] Diagnosed Date Atherosclerotic heart diseas e of [place] coronary artery with other forms of angina [...] encounter Miscellaneous Notes * Telephone Encounter - Neena Marc LPN - 03/21/2024 1:16 PM EDT Isabela Story was referred as a potential candidate for enrollment for [facility]. A review of this chart was completed and: Isabela does not meet criteria for enrollment into [facility]. Referral Source: Monthly Proactive Eligibility List Criteria for Ineligibility: SNF Director Of Category Management Care Referring care team was notified via : Epic communication Neena Marc LPN [facility] 03/21/2024,1:16 PM documented in this encounter Plan of Treatment Upcoming Encounters Date Type Department Care Team (Late st Contact Info) Description 04/17/2024 10:00 AM EDT Office Visit Cardiology, [facility] [address] [place] [address] Tristen Otto PA-C [address] [place] [address] 04/21/2024 1:40 PM EDT Anticoagulation Pharmacy, [facility] 200 [facility] [place] [address] Pharmacist1, [facility] [address] [facility] [place] [address] 05/01/2024 1:00 PM EDT Office Visit Neurology [facility] 200 [facility] [place] [address] Tonja Rivas MD 200 [facility] [place] [address] 07/22/2024 1:45 PM EDT Office Visit Urology, [facility] 132 [facility] [place] [address] Wili Mckeon MD [address] [place] [address] Health Maintenance Due Date Last Done Comments Albumin/Creatinine Ratio 12/03/2019 019, 03/14/2016, 08/09/2011, Additional history exists CKD PHOS USE SMARTSET 35173 12/03/201911/22, 03/14/2016, 08/29/2012 DTaP,Tdap,and Td Vaccines (2 - Td or Tdap) 09/29/2021 09/29/2011, 09/05/1999 COVID-19 Vaccine ( season) 2023 05/11/2022, 07/29/2021, 11/23/2020, Additional history exists CKD HGB USE SMARTSET 07719 05/23/202405/23, 05/10/2022, 11/09/2021, Additional history exists TSH [...] Documents on File Type Date Recorded Patient An/Syq 13 Nav/C2 Operator Expl anation Advance Directives and Living Will 07/16/2017 LIVING WILL Power of Local Company Truck Driver 07/16/2017 POWER OF A TTORNEY DURABLE HEALTH CARE POA Healthcare Agents on File Name Relationship Healthcare Agent Relationshi p Communication Shelly Story Spouse Health Care Agen t (per Health Care Power of Local Company Truck Driver document) Care Teams Jelly Maker Relationship Specialty Start Date End Date Jordana Hopkins DO [address] [place] [address] PCP - General Family Medicine 03/05/17 documented as of this encounter
--- OUTSIDE RECORDS SUMMARY | 2024-08-23 23:52 | External Medical Summary | Summary of Care ---
Author Name Unknown Organization [facility] Address [address] [place] [address] Phone [phone] Care Team Providers Care Compliance Manager Name Role Phone Jordana Hopkins DO Primary Care Provider Reason for Visit * Reason Onset Date Comments Medication Refill 03/21/2024 Encounter Details Date Type Department Care Team (Late st Contact Info) Description 03/21/2024 Refill Cardiology, [facility] [address] [place] [address] [place] Flower DO [address] [place] [address] Nonsustained ventricular tachycardia (HCC) Allergies Active Allergy Reactions Criticality Noted [...] Diagnosed Date Atherosclerotic heart diseas e of [place] coronary artery with other forms of angina [...] 03/21/2024 12:46 PM EDTRefused Prescriptions: Disp Refills Amiodarone HCl 200 MG Oral Tablet (Cordaro*45 Tab*3 Refused By:TAYLER TORRES MRele for Refusal: Duplicate Request documented in this encounter Plan of Treatment Upcoming Encounters Date Type Department Care Team (Late st Contact Info) Description 04/17/2024 10:00 AM EDT Office Visit Cardiology, [facility] [address] [place] [address] Tristen Otto PA-C [address] [place] [address] 04/21/2024 1:40 PM EDT Anticoagulation Pharmacy, [facility] 200 [facility] [place], [place] [address] Pharmacist1, [facility] 200 [facility] [place] [address] 05/01/2024 1:00 PM EDT Office Visit Neurology [facility] [address] [facility] [place] [address] Tonja Rivas MD 200 [facility] [place] [address] 07/22/2024 1:45 PM EDT Office Visit Urology, [facility] 132 [facility] [place] [address] Wili Mckeon MD [address] [place] [address] Health Maintenance Due Date Last Done Comments Albumin/Creatinine Ratio 12/03/2019 019, 03/14/2016, 08/09/2011, Additional history exists CKD PHOS USE SMARTSET 57421 12/03/201911/22, 03/14/2016, 08/29/2012 DTaP,Tdap,and Td Vaccines (2 - Td or Tdap) 09/29/2021 09/29/2011, 09/05/1999 COVID-19 Vaccine ( season) 2023 05/11/2022, 07/29/2021, 11/23/2020, Additional history exists CKD HGB USE SMARTSET 05976 05/23/202405/23, 05/10/2022, 11/09/2021, Additional history exists TSH [...] as of this encounter Visit Diagnoses Diagnosis Nonsustained ventricular tachycardia (HCC) Paroxysmal ventricular tachycardia documented in this encounter Advance Directives Documents on File Type Date Recorded Patient Pattern And Chain Maker Expl anation Advance Directives and Living Will 07/16/2017 LIVING WILL Power of Claims Support Specialist 07/16/2017 POWER OF A TTORNEY DURABLE HEALTH CARE POA Healthcare Agents on File Name Relationship Healthcare Agent Relationshi p Communication Shelly Story Spouse Health Care Agen t (per Health Care Power of Claims Support Specialist document) Care Teams Compliance Manager Relationship Specialty Start Date End Date Jordana Hopkins DO [address] [place] [address] PCP - General Family Medicine 03/05/17 documented as of this encounter
--- OUTSIDE RECORDS SUMMARY | 2024-08-23 23:52 | External Medical Summary | Summary of Care ---
Author Name Unknown Organization [facility] Address [address] [place] [address] Phone [phone] Care Team Providers Care Credit Counselor Name Role Phone Jordana Hopkins DO Primary Care Provider Reason for Visit * Reason Onset Date Comments Medication Refill 03/21/2024 Encounter Details Date Type Department Care Team (Late st Contact Info) Description 03/21/2024 Refill Urology, [facility] 132 [facility] [place] [address] Julissa Serrano MD [address] [place] [address] BPH with obstruction/lower urinary tract symptoms Allergies Active Allergy Reactions Criticality Noted Date [...] with breakfast. 45 Tablet 3 03/21/2024 Active Finasteride 5 MG Oral Tablet (Proscar)Indicati ons:BPH with obstruction/lower urinary tract symptoms Take 1 Tablet by mouth in the morning. 90 Tablet 3 11/07/2023 4 Discontinue d(Refill) documented as of this encounter (statuses as of 03/21/2024) Active Problems Problem Noted Date Diagnosed Date Atherosclerotic heart diseas e of [place] coronary artery with other forms of angina [...] No 10/01/2023 Does the household have a ascension macombr source of income? (Household - for ages [...] encounter Miscellaneous Notes * Telephone Encounter - Julissa Serrano MD - 03/21/2024 2:28 PM EDTSigned Prescriptions: Disp Refills Finasteride 5 MG Oral Tablet (Proscar) 90 Tab*3 Sig: Take 1 Tablet by mouth in the morning. Authorizing Provider: JULISSA SERRANO * Telephone Encounter - Charity Gonzalez LPN - 03/21/2024 2:09 PM EDTPending Prescriptions: Disp Refills Finasteride 5 MG Oral Tablet (Proscar) 90 Tab*3 Sig: Take 1 Tablet by mouth in the morning. * Telephone Encounter - Charity Gonzalez LPN - 03/21/2024 2:08 PM EDT Patient requesting medication, Finasteride, be filled at different pharmacy. 07/18/2023 07/22/2024 Review of patient's allergies indicates: Allergen Reactions Iodinated Contrast Media documented in this encounter Plan of Treatment Upcoming Encounters Date Type Department Care Team (Late st Contact Info) Description 04/17/2024 10:00 AM EDT Office Visit Cardiology, [facility] [address] [place] [address] Tristen Otto PA-C [address] [place] [address] 04/21/2024 1:40 PM EDT Anticoagulation Pharmacy, [facility] [place] [address] [place] [address] Pharmacist1, [facility] [address] [place] [address] 05/01/2024 1:00 PM EDT Office [facility] [place] [address] [place] [address] Tonja Rivas MD [address] [place] [address] 07/22/2024 1:45 PM EDT Office Visit Urology, [facility] [address] [place] [address] Julissa Serrano MD [address] [place] [id number] Health Maintenance Due Date Last Done Comments Albumin/Creatinine Ratio 12/03/2019 019, 03/14/2016, 08/09/2011, Additional history exists CKD PHOS USE SMARTSET 40324 12/03/201911/22, 03/14/2016, 08/29/2012 DTaP,Tdap,and Td Vaccines (2 - Td or Tdap) 09/29/2021 09/29/2011, 09/05/1999 COVID-19 Vaccine (2022- season) 2023 05/11/2022, 07/29/2021, 11/23/2020, Additional history exists CKD HGB USE SMARTSET 81755 05/23/202405/23, 05/10/2022, 11/09/2021, Additional history exists TSH [...] Diagnoses Diagnosis BPH with obstruction/lower urinary tract symptoms Hypertrophy of prostate with urinary obstruction and other lower urinary tract symptoms (LUTS) documented in this encounter Advance Directives Documents on File Type Date Recorded Patient Control Systems Eng Expl anation Advance Directives and Living Will 07/16/2017 LIVING WILL Power of Asset Protection Assistant 07/16/2017 POWER OF A TTORNEY DURABLE HEALTH CARE POA Healthcare Agents on File Name Relationship Healthcare Agent Relationshi p Communication Shelly Story Spouse Health Care Agen t (per Health Care Power of Asset Protection Assistant document) Care Teams Credit Counselor Relationship Specialty Start Date End Date Jordana Hopkins DO [facility] [address] [place], [place] [id number] PCP - General Family Medicine 03/05/17 documented as of this encounter
--- OUTSIDE RECORDS SUMMARY | 2024-08-23 23:52 | External Medical Summary | Summary of Care ---
Author Name Unknown Organization [facility] Address [address] [place] [address] Phone [phone] Care Team Providers Care Ems Helicopter Pilot Name Role Phone Jordana Hopkins DO Primary Care Provider Encounter Details Date Type Department Care Team (Late st Contact Info) Description 03/24/2024 Orders Only PATIENT PORTAL DO NOT DELETE THIS DEPT USED BY [place] [address] Allergies Active Allergy Reactions Criticality Noted Date Comments Iodinated Contrast Media 12/15/2010 documented as of this encounter (statuses as of 03/24/2024) Medications Medication Sig Dispensed Refills Start Date [...] as of this encounter (statuses as of 03/24/2024) Active Problems Problem Noted Date Diagnosed Date Atherosclerotic heart diseas e of [place] coronary artery with other forms of angina [...] as of this encounter (statuses as of 03/24/2024) Resolved Problems Problem Noted Date Diagnosed Date [...] as of this encounter (statuses as of 03/24/2024) Immunizations Name Administration Dates Next Due COVID-19 [...] 04/17/2024 10:00 AM EDT Office Visit Cardiology, [facility] [address] [place] [address] Tristen Otto PA-C [address] [place] [address] 04/21/2024 1:40 PM EDT Anticoagulation Pharmacy, [facility] 200 [facility] [place] [address] Pharmacist1, [facility] 200 [facility] [place] [address] 05/01/2024 1:00 PM EDT Office Visit Neurology [facility] [address] [facility] [place] [address] Tonja Rivas MD [address] [facility] [place] [address] 07/22/2024 1:45 PM EDT Office Visit Urology, [facility] [address] [place] [address] Wili Mckeon MD [address] [place] [address] Health Maintenance Due Date Last Done Comments Albumin/Creatinine Ratio 12/03/2019 019, 03/14/2016, 08/09/2011, Additional history exists CKD PHOS USE SMARTSET 66948 12/03/201911/22, 03/14/2016, 08/29/2012 DTaP,Tdap,and Td Vaccines (2 - Td or Tdap) 09/29/2021 09/29/2011, 09/05/1999 COVID-19 Vaccine ( season) 2023 05/11/2022, 07/29/2021, 11/23/2020, Additional history exists CKD HGB USE SMARTSET 50460 05/23/202405/23, 05/10/2022, 11/09/2021, Additional history exists TSH [...] Documents on File Type Date Recorded Patient Mobile Unit Assistant Expl anation Advance Directives and Living Will 07/16/2017 LIVING WILL Power of Muck Miner Blasting 07/16/2017 POWER OF A TTORNEY DURABLE HEALTH CARE POA Healthcare Agents on File Name Relationship Healthcare Agent Relationshi p Communication Shelly Story Spouse Health Care Agen t (per Health Care Power of Muck Miner Blasting document) Care Teams Ems Helicopter Pilot Relationship Specialty Start Date End Date Jordana Hopkins DO [address] [place] [address] PCP - General Family Medicine 03/05/17 documented as of this encounter
--- OUTSIDE RECORDS SUMMARY | 2024-08-23 23:52 | External Medical Summary | Summary of Care ---
Author Name Unknown Organization [facility] Address [address] [place] [address] Phone [phone] Care Team Providers Care Accelerator Technician Name Role Phone Jordana Hopkins DO Primary Care Provider Reason for Visit * Reason Onset Date Comments Medication Refill 03/21/2024 Encounter Details Date Type Department Care Team (Late st Contact Info) Description 03/21/2024 Refill Cardiology, [facility] [address] [place] [address] Reta Subramanian PA-C [address] [place] [address] Dyslipidemia, goal LDL below 70; HTN, goal below 140/90; Nonsustained ventricular tachycardia (HCC) Allergies Active Allergy [...] morning. Active Finasteride 5 MG Oral Tablet (Proscar)Indicati [...] with breakfast. 45 Tablet 3 03/21/2024 Active Rosuvastatin Calcium 5 MG Oral Tablet (Crestor)Indicati ons:Dyslipidemia, goal LDL below 70 TAKE 1 TABLET BY MOUTH EVERY DAY 90 Tablet 3 09/07/2023 4 Discontinue d(Refill) Losartan Potassium 50 MG Oral Tablet (Cozaar) Take 1 Tablet by mouth in the morning. 90 Tablet 3 10/12/2023 4 Discontinue d(Refill) Amiodarone HCl 200 MG Oral Tablet (Cordarone)Indica tions:Nonsustaine d ventricular tachycardia (HCC) TAKE 1/2 TABLET BY MOUTH EVERY MORNING 45 Tablet 3 11/07/2023 4 Discontinue d(Refill) Metoprolol Succinate ER 100 MG Oral Tablet Extended Release 24 Hour (toPROL XL)Indications:HT N, goal below 140/90,Nonsustain ed ventricular tachycardia (HCC) Take 1 Tablet by mouth daily. 90 Tablet 3 12/11/2023 4 Discontinue d(Refill) documented as of this encounter (statuses as of 03/21/2024) Active Problems Problem Noted Date Diagnosed Date Atherosclerotic heart diseas e of [place] coronary artery with other forms of angina [...] x 3 09/11/1999 12/02/2018 Mixed dyslipidemia 01/14/1992 12/10/200 9 Overview: Per Lipid Taxonomy. HYPERTENSION NOS [...] encounter Miscellaneous Notes * Telephone Encounter - Rtea Subramanian PA-C - 03/21/2024 1:12 PM EDTSigned Prescriptions: Disp Refills Rosuvastatin Calcium 5 MG Oral Tablet (Cre*90 Tab*3 Sig: Take 1 Tablet by mouth in the morning. Authorizing Provider: RETA SUBRAMANIAN Metoprolol Succinate ER 100 MG Oral Tablet*90 Tab*3 Sig: Take 1 Tablet by mouth daily. Authorizing Provider: RETA SUBRAMANIAN Losartan Potassium 50 MG Oral Tablet (Coza*90 Tab*3 Sig: Take 1 Tablet by mouth in the morning. Authorizing Provider: RETA SUBRAMANIAN Amiodarone HCl 200 MG Oral Tablet (Cordaro*45 Tab*3 Sig: Take 0.5 Tablets by mouth daily with breakfast. Authorizing Provider: RETA SUBRAMANIAN * Telephone Encounter - Vero Torres LPN - 03/21/2024 12:50 PM EDTPending Prescriptions: Disp Refills Rosuvastatin Calcium 5 MG Oral Tablet (Cre*90 Tab*3 Sig: Take 1 Tablet by mouth in the morning. Metoprolol Succinate ER 100 MG Oral Tablet*90 Tab*3 Sig: Take 1 Tablet by mouth daily. Losartan Potassium 50 MG Oral Tablet (Coza*90 Tab*3 Sig: Take 1 Tablet by mouth in the morning. Amiodarone HCl 200 MG Oral Tablet (Cordaro*45 Tab*3 Sig: Take 0.5 Tablets by mouth daily with breakfast. * Telephone Encounter - Melissa Vero CarrSLOANE - 03/21/2024 12:45 PM EDT Did you pend patient's preferred pharmacy and medication before forwarding? YES Pharmacy: [id number] [facility] [place] Pending Prescriptions: Disp Refills Rosuvastatin Calcium 5 MG Oral Tablet (Cr*90 Tab*3 Sig: Take 1 Tablet by mouth in the morning. Metoprolol Succinate ER 100 MG Oral Table*90 Tab*3 Sig: Take 1 Tablet by mouth daily. Losartan Potassium 50 MG Oral Tablet (Coz*90 Tab*3 Sig: Take 1 Tablet by mouth in the morning. Amiodarone HCl 200 MG Oral Tablet (Cordar*45 Tab*3 Sig: Take 0.5 Tablets by mouth daily with breakfast. Last Visit: 09/06/2023 (in office), Visit date not found (telemedicine) Next Visit: 04/17/2024 If no future appointments scheduled, and last appointment is greater than a year ago, please schedule patient for a follow-up appointment Last date the medication was ordered: Is this request for a controlled substance? NO Urine Drug Screen:No results found. However, due [...] 04/17/2024 10:00 AM EDT Office Visit Cardiology, [facility] [address] [place] [address] Reta Subramanian PA-C 132 [facility] [place] [address] 04/21/2024 1:40 PM EDT Anticoagulation Pharmacy, [facility] 200 [facility] [place] [address] Pharmacist1, [facility] 200 [facility] [place] [address] 05/01/2024 1:00 PM EDT Office Visit Neurology [facility] 200 [facility] [place] [address] Tonja Rivas MD 200 [facility] [place] [address] 07/22/2024 1:45 PM EDT Office Visit Urology, [facility] 132 [facility] [place] [address] Wili Mckeon MD [address] [place] [address] Health Maintenance Due Date Last Done Comments Albumin/Creatinine Ratio 12/03/2019 019, 03/14/2016, 08/09/2011, Additional history exists CKD PHOS USE SMARTSET 75002 12/03/201911/22, 03/14/2016, 08/29/2012 DTaP,Tdap,and Td Vaccines (2 - Td or Tdap) 09/29/2021 09/29/2011, 09/05/1999 COVID-19 Vaccine ( season) 2023 05/11/2022, 07/29/2021, 11/23/2020, Additional history exists CKD HGB USE SMARTSET 48088 05/23/202405/23, 05/10/2022, 11/09/2021, Additional history exists TSH [...] Visit Diagnoses Diagnosis Dyslipidemia, goal LDL below 70 Other and unspecified hyperlipidemia HTN, goal below 140/90 Unspecified essential hypertension Nonsustained ventricular tachycardia (HCC) Paroxysmal ventricular tachycardia documented in this encounter Advance Directives Documents on File Type Date Recorded Patient Medical And Scientific Illustrator Expl anation Advance Directives and Living Will 07/16/2017 LIVING WILL Power of [place] Supervisor 07/16/2017 POWER OF A TTORNEY DURABLE HEALTH CARE POA Healthcare Agents on File Name Relationship Healthcare Agent Relationshi p Communication Shelly Story Spouse Health Care Agen t (per Health Care Power of [place] Supervisor document) Care Teams Accelerator Technician Relationship Specialty Start Date End Date Jordana Hopkins DO [address] [place] [address] PCP - General Family Medicine 03/05/17 documented as of this encounter
--- OUTSIDE RECORDS SUMMARY | 2024-08-23 23:52 | External Medical Summary | Summary of Care ---
Author Name Unknown Organization [facility] Address [address] [place] [address] Phone [phone] Care Team Providers Care Nurs[employer] Executive Director Name Role Phone Jordana Hopkins DO Primary Care Provider Reason for Visit * Reason Onset Date Comments Forms Request 03/17/2024 Encounter Details Date Type Department Care Team (Late st Contact Info) Description 03/17/2024 Telephone Family Practice [facility] [address] [facility] [place] [address] [facility] DO [facility] [address] Forms Request Allergies Active Allergy Reactions Criticality Noted Date Comments Iodinated Contrast Media 12/15/2010 documented as of this encounter (statuses as of 03/22/2024) Medications Medication Sig Dispensed Refills Start Date [...] to start 30 Tablet 2 03/17/2024 Active Omeprazole 20 MG Oral Capsule Delayed Release (PriLOSEC)Indicat ions:Dysphagia, unspecified type Take 1 Capsule by mouth in the morning. 1 hour before the first meal of the day. 30 Capsule 5 09/06/2023 4 Discontinue d(Refill) Rosuvastatin Calcium 5 MG Oral Tablet (Crestor)Indicati ons:Dyslipidemia, goal LDL below 70 TAKE 1 TABLET BY MOUTH EVERY DAY 90 Tablet 3 09/07/2023 4 Discontinue d(Refill) Losartan Potassium 50 MG Oral Tablet (Cozaar) Take 1 Tablet by mouth in the morning. 90 Tablet 3 10/12/2023 4 Discontinue d(Refill) Finasteride 5 MG Oral Tablet (Proscar)Indicati ons:BPH with obstruction/lower urinary tract symptoms Take 1 Tablet by mouth in the morning. 90 Tablet 3 11/07/2023 4 Discontinue d(Refill) levETIRAcetam ER 750 MG Oral Tablet Extended Release 24 Hour (Keppra XR) TAKE 2 TABLETS BY MOUTH AT BEDTIME 180 Tablet 1 11/08/2023 4 Discontinue d(Refill) Amiodarone HCl 200 MG Oral Tablet (Cordarone)Indica tions:Nonsustaine d ventricular tachycardia (HCC) TAKE 1/2 TABLET BY MOUTH EVERY MORNING 45 Tablet 3 11/07/2023 4 Discontinue d(Refill) levETIRAcetam ER 500 MG Oral Tablet Extended Release 24 Hour (Keppra XR) TAKE 1 TABLET BY MOUTH AT BEDTIME ALONG WITH 750MG TABLETS 90 Tablet 1 12/07/2023 4 Discontinue d(Refill) Metoprolol Succinate ER 100 MG Oral Tablet Extended Release 24 Hour (toPROL XL)Indications:HT N, goal below 140/90,Nonsustain ed ventricular tachycardia (HCC) Take 1 Tablet by mouth daily. 90 Tablet 3 12/11/2023 4 Discontinue d(Refill) Donepezil HCl 10 MG Oral Tablet (Aricept)Indicati ons:Memory loss TAKE 1 TABLET BY MOUTH EVERY DAY WITH LARGEST MEAL OF THE DAY 90 Tablet 01/17/2024 4 Discontinue d(Refill) Memantine HCl 10 MG Oral Tablet (Namenda) TAKE 1 TABLET BY MOUTH TWO TIMES DAILY WITH MORNING AND EVENING MEALS. 180 Tablet 1 02/11/2024 4 Discontinue d(Refill) documented as of this encounter (statuses as of 03/22/2024) Active Problems Problem Noted Date Diagnosed Date Atherosclerotic heart diseas e of [place] coronary artery with other forms of angina [...] as of this encounter (statuses as of 03/22/2024) Resolved Problems Problem Noted Date Diagnosed Date [...] as of this encounter (statuses as of 03/22/2024) Immunizations Name Administration Dates Next Due COVID-19 [...] encounter Miscellaneous Notes * Telephone Encounter - Hali Man LPN - 03/21/2024 10:26 AM EDT Left message for patient's to return call. Please make aware the completed forms were faxed toElaine Borja; confirmation received. Copy sent for scanning. Does she want a copy to order picker or have mailed to her? * Telephone Encounter - Hali Man LPN - 03/20/2024 2:[address] Hopkins's desk for review & signature * Telephone Encounter - Katherine Vora OSA - 2024 4:46 PM EDT Cori from [facility] called to check on the status of the forms so they can get pt moved tho their facility. When forms are ready please fax to [phone] * Telephone Encounter - Lilibeth Henriquez OSA - 03/17/2024 11:47 AM EDT Please fill out forms to transfer to [facility]. Please call when completed at [phone]. I put forms in Dr. Fritz. documented in this encounter Plan of Treatment Upcoming Encounters Date Type Department Care Team (Late st Contact Info) Description 04/17/2024 10:00 AM EDT [facility], [facility] [place] [address] Tristen Otto PA-C [address] [place] [address] 04/21/2024 1:40 PM EDT Anticoagulation Pharmacy, [facility] [place] [address] [facility] [place] [address] Pharmacist1, [facility] [place] [address] 05/01/2024 1:00 PM EDT Office Visit Neurology [facility] [place] [address] [facility] [place] [address] Tonja Rivas MD [address] [facility] [place] [address] 07/22/2024 1:45 PM EDT Office Visit Urology, [facility] [address] [place] [address] Wili Mckeon MD [address] [place] [address] Health Maintenance Due Date Last Done Comments Albumin/Creatinine Ratio 12/03/2019 019, 03/14/2016, 08/09/2011, Additional history exists CKD PHOS USE SMARTSET 64426 12/03/201911/22, 03/14/2016, 08/29/2012 DTaP,Tdap,and Td Vaccines (2 - Td or Tdap) 09/29/2021 09/29/2011, 09/05/1999 COVID-19 Vaccine ( season) 2023 05/11/2022, 07/29/2021, 11/23/2020, Additional history exists CKD HGB USE SMARTSET 43966 05/23/202405/23, 05/10/2022, 11/09/2021, Additional history exists TSH [...] Documents on File Type Date Recorded Patient Angledozer Operator Expl anation Advance Directives and Living Will 07/16/2017 LIVING WILL Power of General Repair Mechanic 07/16/2017 POWER OF A TTORNEY DURABLE HEALTH CARE POA Healthcare Agents on File Name Relationship Healthcare Agent Relationshi p Communication Shelly Story Spouse Health Care Agen t (per Health Care Power of General Repair Mechanic document) Care Teams Nurses' Association Executive Director Relationship Specialty Start Date End Date Jordana Hopkins DO [address] [place] [address] PCP - General Family Medicine 03/05/17 documented as of this encounter
--- OUTSIDE RECORDS SUMMARY | 2024-08-23 23:52 | External Medical Summary ---
Author Name Unknown Address Unknown Organization [id number] [address] [place] [address] Laboratory Report Ordering Provider Test Date Status RAYN MIRANDA 03/29/2024 10:40:00 Final Observation Date Value Abnormality Reference (Units ) Status Color of Urine by Auto 03/29/2024 10:40:00 Yellow Colorless, Light Yellow, Yellow, Dark Yellow Final Clarity, Urine 03/29/2024 10:40:00 Clear Clear Final Glucose [Mass/volume] in Urine by Automated test strip 03/29/2024 10:40:00 Negative Negative (mg/dL) Final Bilirubin.total [Presence] in Urine by Automated test strip 03/29/2024 10:40:00 Negative Negative Final Ketones [Mass/volume] in Urine by Automated test strip 03/29/2024 10:40:00 Negative Negative (mg/dL) Final Specific gravity, Urine 03/29/2024 10:40:00 1.025 1.003-1.030 Final Hemoglobin [Presence] in Urine by Automated test strip 03/29/2024 10:40:00 Negative Negative Final pH, Urine 03/29/2024 10:40:00 6.5 5.0-7.5 (Units) Final Protein [Mass/volume] in Urine by Automated test strip 03/29/2024 10:40:00 30 Abnormal Negative (mg/dL) Final Urobilinogen [Mass/volume] in Urine by Automated test strip 03/29/2024 10:40:00 2.0 Abnormal 0.2, 1.0 (mg/dL) Final Nitrite [Presence] in Urine by Automated test strip 03/29/2024 10:40:00 Negative Negative Final Leukocyte esterase [Presence] in Urine by Automated test strip 03/29/2024 10:40:00 Negative Negative Final Performing Location [facility] [address] [place] [address]
--- OUTSIDE RECORDS SUMMARY | 2024-08-23 23:52 | External Medical Summary | Summary of Care ---
Author Name Unknown Organization [facility] Address [address] [place] [address] Phone [phone] Care Team Providers Care Inspector Welded Parts Name Role Phone Jordana Hopkins DO Primary Care Provider Reason for Visit * Reason Comments Outpatient Testing Encounter Details Date Type Department Care Team (Late st Contact Info) Description 03/29/2024 12:20 PM EDT Laboratory Laboratory, [facility] [address] [place] [address] Amarjit Specimen Drop Off [facility] [address] [place] [address] UTI (urinary tract infection) Allergies [...] Diagnosed Date Atherosclerotic heart diseas e of [place] coronary artery with other forms of angina [...] 04/17/2024 10:00 AM EDT Office Visit Cardiology, [facility] [address] [place] [address] Tristen Otto PA-C [address] [place] [address] 04/21/2024 1:40 PM EDT Anticoagulation Pharmacy, [place] [address] [place] [address] Pharmacist1, [facility] [address] [place] [address] [address] 05/01/2024 1:00 PM EDT [facility] [place] [address] [place] [address] Tonja Rivas MD [address] [place] [address] 07/22/2024 1:45 PM EDT Office Visit Urology, [facility] [address] [place] [address] Wili Mckeon MD [address] [place] [...] Additional history exists CKD PHOS USE SMARTSET 47485 12/03/201911/22, 03/14/2016, 08/29/2012 DTaP,Tdap,and Td Vaccines (2 - Td or Tdap) 09/29/2021 09/29/2011, 09/05/1999 COVID-19 Vaccine ( season) 2023 08/06/2023, 08/02/2022, 05/11/2022, Additional history exists CKD HGB USE SMARTSET 57780 05/23/202405/23, 05/10/2022, 11/09/2021, Additional history exists TSH [...] Documents on File Type Date Recorded Patient Hospital Supervisor Expl anation Advance Directives and Living Will 07/16/2017 LIVING WILL Power of Hairspring Inspector 07/16/2017 POWER OF A TTORNEY DURABLE HEALTH CARE POA Healthcare Agents on File Name Relationship Healthcare Agent Relationshi p Communication Shelly Story Spouse Health Care Agen t (per Health Care Power of Hairspring Inspector document) Care Teams Inspector Welded Parts Relationship Specialty Start Date End Date Jordana Hopkins DO [address] [place] [address] PCP - General Family Medicine 03/05/17 documented as of this encounter
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
[2024-08-24] MEDS: fentaNYL citrate PF 100 MCG/2 ML VIAL IV STA (00:11)
[2024-08-24 00:19] LABS: Basophils # (auto) 0.05 K/uL (0.00-0.20); Basophils % (auto) 0.5 %; Eosinophils % (auto) 0.9 %; Hematocrit (blood only) 33.8 % (42.0-52.0); Hemoglobin 11.1 g/dl (14.0-18.0); Immature Granulocytes # (auto) 0.02 K/uL (0.01-0.20); Immature Granulocytes % (auto) 0.2 %; Lymphocytes # (auto) 1.96 K/uL (1.20-3.40); Lymphocytes % (auto) 17.7 %; Mean Corpuscular Hgb Conc 32.8 g/dL (32.0-36.0); Mean Corpuscular Volume 97.4 fL (80.0-100.0); Mean Platelet Volume 10.6 fL (9.4-12.4); Monocytes # (auto) 0.65 K/uL (0.11-0.59); Monocytes % (auto) 5.9 %; Neutrophils # (auto) 8.32 K/uL (1.40-6.50); Neutrophils % (auto) 74.8 %; Platelet Count 190 K/uL (130-400); RDW Coefficient of Variation 13.4 % (11.5-14.5); Red Blood Count 3.47 M/uL (4.70-6.10)
--- NOTE | 2024-08-24 00:19 | Emergency Department Note ---
Impression & Plan Fracture of hip, right, closed admit to the [facility] ED Provider Note NAME: JAVIER NAVARRETE AGE: 89 SEX: Male INFORMANT: Patient's ED PROVIDER(S): Ronit Patrick DO CHIEF COMPLAINT: fall PLAN: Disposition: admit to the [facility] MEDICAL DECISION MAKING: this is an 89-year-old male patient who presents to the emergency department with pain in his right hip. The patient resides at the [facility]. He was found on the floor in his room with his walker noted to be in the bathroom. Patient was complaining of severe pain in the right hip with obvious shortening and external rotation. he Was also noted to have a contusion to the thenar eminence of the right hand and a contusion to his right ear. x-ray of the right hand and wrist were performed. there is a lucency of the distal radius on the x-ray. patient does not seem to be tender has tenderness of the thenar eminence. I am not convinced that this is an acute fracture but possibly more of a contusion. Patient's pain in the right hip was controlled using IV fentanyl then IV Dilaudid. Patient's laboratory studies revealed no significant leukocytosis. The patient was mildly anemic with a hemoglobin of 11.1. Kidney function test revealed BUN of 35 and creatinine of 1.36 and glucose of 113. [facility] care. Care/management discussed with: secondary market manager and [facility] Triage Nursing notes: reviewed and agree With them. Vital Signs: reviewed and remarkable for hypertension Additional History obtained from: EMS Chronic Medical/Social Conditions affecting care: Alzheimer dementia Prior/ Outside/ External records reviewed: I reviewed the records from [facility] Differential Diagnosis: hip fracture, pelvis fracture, hand fracture, wrist fracture, head injury Diagnostics, independently interpreted by me: ECG: AV dual paced rhythm at a rate of 78. There are no obvious signs of ischemia. Cardiac Monitoring: Paced rhythm at a rate of 84 Imaging studies: right hip x-ray: As per my independent interpretation- intertrochanteric hip fracture. Right wrist x-ray: Lucency of the distal radius with questionable fracture Right hand x-ray: as per [facility] HPI: 89 year old Male arrives for evaluation of Fall. patient had an unwitnessed fall in his room. His walk was found in the bathroom and the patient was out in his bedroom. He was complaining of severe right hip pain. PAST MEDICAL HISTORY: See Below, PAST SURGICAL HISTORY: See Below, SOCIAL HISTORY: See Below, HOME MEDICATIONS: See list ALLERGIES: contrast VITALS: See Below PHYSICAL EXAMINATION: HEENT: Head - normocephalic and atraumatic With a small contusion to the right pinna. Pupils are equal, round, and reactive to light. Extraocular eye muscles are intact and sclera are anicteric. Nose - moist nasal mucosa without discharge. Mouth - moist buccal mucosa. Oropharynx is nonerythematous and there is no tonsillar exudate or edema noted. Neck: Supple; no JVD, nuchal rigidity, cervical lymphadenopathy, or auscultated bruits. Heart: Regular rate and rhythm. There is a normal S1 and S2 with no murmurs, clicks, or gallops appreciated. Lungs: Clear to auscultation bilaterally with no wheezes, rales, or rhonchi. Abdomen: Soft, completely nontender, nondistended, with good bowel sounds. There are no palpable pulsatile masses or hepatosplenomegaly. There is no guarding, rigidity, or rebound noted. Extremities: area of contusion noted over the right palmar surface of the hand, specifically the thenar eminence. Neuro:The patient is awake and alert. He has significant painful distress. He is moving all 4 extremities but has significant pain noted with movement of the right hip. Emergency department treatment: campus monitor, IV fentanyl, IV Dilaudid emergency department course: The patient was evaluated in room B-7. A complete history and physical was performed. Laboratory studies were drawn as above. Portable x-ray of the right hip was obtained which confirmed fracture of the right hip. Patient was given a dose of IV fentanyl for pain which only gave him minimal relief. He went on to receive IV Dilaudid which gave him more relief. It was noted the patient had a contusion on his right hand. He had plain films of the right hand and right wrist as described above. They case was discussed with the [facility] Hospitalist and they will evaluate for further inpatient care. Past Med/Surg History Problem List Asymptomatic hypertensive urgency Fracture of hip, right, closed (Acute) COVID Alzheimer's dementia Hematuria UTI (urinary tract infection) CHF (congestive heart failure) Pulmonary edema (Acute) Elevated troponin I level (Acute) Edema (Acute) Generalized muscle weakness (Acute) History of colon polyps Encounter for pre-operative examination Deep venous thrombosis of left upper extremity Elevated troponin DVT prophylaxis Syncope and collapse Non-sustained ventricular tachycardia (Chronic) Hypertension (Chronic) CAD (coronary artery disease) (Chronic) History of prior RCA interventions with chronic RCA occlusion Symptomatic sinus bradycardia (Chronic) Dyslipidemia (Chronic) Seizure disorder (Chronic) last petite mal 06/2018--on keppra---follows with Dr. Meehan Sinus node dysfunction (Chronic) CKD (chronic kidney disease), stage III (Chronic) GERD (gastroesophageal reflux disease) (Chronic) S/P placement of cardiac pacemaker (Chronic) 06/2015--[employer] H/O coronary artery balloon dilation (Chronic) 2000 @ [facility] [place]O inguinal hernia repair (Chronic) left Medical History (Updated 08/24/24 @ 04:36 by Jadon Quintana MD) Renal cyst, left BPH (benign prostatic hyperplasia) Hypothyroidism On anticoagulant therapy warfarin daily Deep vein thrombosis 2018--left arm--unknown reason--on warfarin Hearing deficit Dementia Myocardial Infarction 11/1999--follows with Dr. Coelho Surgical History History of colonoscopy History of bilateral cataract extraction History of heart artery stent 11/1999 @ [facility] [place] History of cardiac cath x1 11/1999 Family History Other Family history non-contributory No family history of adverse response to anesthesia Social History Smoking Status: Never smoker Second Hand Exposure: Yes (father smoked cigars); Do You Dip or Chew Tobacco: No; Hx Alcohol Use: No Hx Substance Use: No Preferred Language: Venezuelan Communication Ability: Effective Mattress Inspector Required: No Beliefs That Will Affect Care: None marital status: Current Living Situation: Spouse Feels Safe at Home: Yes Assistive Devices: Walker Allergies Allergies Allergy/AdvReac Type Severity Reaction Status Date / Time Iodinated Contrast Media Allergy Severe trouble Verified 08/24/24 01:31 breathing/hives Home Meds Home Medications Medication Instructions Recorded Confirmed finasteride 5 mg tablet (Proscar) 5 mg PO QAM 11/20/18 08/24/24 levetiracetam 500 mg 500 mg PO HS 11/20/18 08/24/24 tablet,extended release 24 hr (Keppra XR) levetiracetam 750 mg 1,500 mg PO HS 11/20/18 08/24/24 tablet,extended release 24 hr (Keppra XR) levothyroxine 88 mcg tablet 88 mcg PO DAILYBB 11/20/18 08/24/24 nitroglycerin 0.4 mg sublingual 0.4 mg sublingual .Q 5 MINUTES PRN 11/20/18 08/24/24 tablet (Nitrostat) Chest Pain amiodarone 200 mg tablet 200 mg PO QAM 07/01/19 08/24/24 metoprolol succinate 100 mg 100 mg PO QAM 09/23/23 08/24/24 tablet,extended release 24 hr acetaminophen 650 mg rectal 650 mg [place] Q6H PRN Fever Or Pain 08/24/24 08/24/24 suppository atropine sulfate (PF) 1 % eye 2 drp .EVERY 1 HOUR PRN EXCESSIVE 08/24/24 08/24/24 drops in a dropperette SECRETIONS lorazepam 2 mg/mL oral concentrate 0.5 mg PO Q4 PRN ANXIETY/AGITATION 08/24/24 08/24/24 (Lorazepam Intensol) mirtazapine 30 mg tablet 30 mg PO QPM 08/24/24 08/24/24 morphine concentrate 20 mg/mL oral 5 mg PO .EVERY 1 HOUR PRN 08/24/24 08/24/24 syringe (FOR ORAL USE ONLY) PAIN/DIFFICULTY BREATHING morphine concentrate 20 mg/mL oral 5 mg PO DAILY 08/24/24 08/24/24 syringe (FOR ORAL USE ONLY) olanzapine 2.5 mg tablet (Zyprexa) 2.5 mg PO HS 08/24/24 08/24/24 ondansetron 4 mg disintegrating 4 mg PO Q8H PRN NAUSEA;VOMITING 08/24/24 08/24/24 tablet polyethylene glycol 3350 17 17 g PO .EVERY 24 HOURS PRN 08/24/24 08/24/24 gram/dose oral powder Constipation sennosides 8.6 mg tablet (senna) 17.2 mg PO HS 08/24/24 08/24/24 Previous Rx's Medication Instructions Recorded losartan 50 mg tablet 50 mg PO QAM #30 tabs 09/27/23 Results & Data (ED) Vital Signs Vital Signs - 24 hr 08/23/24 23:50 08/23/24 23:53 08/24/24 00:00 Temperature 36.7 C Temperature Source Axillary Pulse Rate 83 84 81 Pulse Rhythm Regular Respiratory Rate 20 27 H Respiratory Effort / Characteristics Non-Labored Respiratory Depth Normal Blood Pressure 185/95 H 169/74 H Blood Pressure Mean 125 105 Pulse Oximetry 99 99 Oxygen Delivery Method Room Air Sepsis Recent Fever Within 48 Hours No Sepsis New/Unexplained Change in Mental Status No Sepsis Action Taken by Nursing No Action Required 08/24/24 01:00 08/24/24 01:58 Temperature Temperature Source Pulse Rate 66 69 Pulse Rhythm Respiratory Rate 21 Respiratory Effort / Characteristics Respiratory Depth Blood Pressure 157/66 H Blood Pressure Mean Pulse Oximetry 98 Oxygen Delivery Method Sepsis Recent Fever Within 48 Hours Sepsis New/Unexplained Change in Mental Status Sepsis Action Taken by Nursing Laboratory Data 08/24/24 00:00 08/24/24 01:16 Lab Results 08/24/24 08/24/24 08/24/24 Range/Units 00:00 00:20 01:16 WBC 11.10 H (4.8-10.8) K/ul RBC 3.47 L (4.70-6.10) M/uL Hgb 11.1 L (14.0-18.0) g/dl Hct 33.8 L (42.0-52.0) % MCV 97.4 (80.0-100.0) fL MCH 32.0 (25.0-34.0) pg MCHC 32.8 (32.0-36.0) g/dL RDW Std Deviation 48.0 H (36.4-46.3) fL RDW Coeff of Yuly 13.4 (11.5-14.5) % Plt Count 190 (130-400) K/uL MPV 10.6 (9.4-12.4) fL Immature Gran % (Auto) 0.2 % Neut % (Auto) 74.8 % Lymph % (Auto) 17.7 % Bailey % (Auto) 5.9 % Eos % (Auto) 0.9 % Baso % (Auto) 0.5 % Neut # (Auto) 8.32 H (1.40-6.50) K/uL Lymph # (Auto) 1.96 (1.20-3.40) K/uL Bailey # (Auto) 0.65 H (0.11-0.59) K/uL Eos # (Auto) 0.10 (0.00-0.50) K/uL Baso # (Auto) 0.05 (0.00-0.20) K/uL Immature Gran # (Auto) 0.02 (0.01-0.20) K/uL PT Cancelled 11.8 INR Cancelled 1.1 APTT Cancelled 24 PTT Ratio Cancelled 0.9 Sodium 142 (136-145) mmol/L Potassium TNP 3.9 Chloride 109 H (98-107) mmol/L Carbon Dioxide 24 (21-32) mmol/L Anion Gap 9 (3-11) BUN 35 H (6-23) mg/dl Creatinine 1.36 (0.6-1.4) mg/dl Est Cr Clr Drug Dosing 41.6 ml/min eGFR 49.74 BUN/Creatinine Ratio 25.7 H (10-20) Glucose 113 H (70-99(Fasting)) mg/dl Calcium 8.8 (8.6-10.3) mg/dl Magnesium 2.0 (1.7-2.4) mg/dl Total Bilirubin 0.5 (0.2-1.0) mg/dl AST TNP 16 ALT 12 (7-52) U/L Alkaline Phosphatase 75 (34-104) U/L Total Protein 6.7 (6.0-8.3) gm/dl Albumin 3.6 (3.4-5.0) gm/dl Globulin 3.1 (2.5-4.0) gm/dl Albumin/Globulin Ratio 1.2 (0.9-2) TSH 16.113 H (0.300-4.500) uIu/ml Urine Color Yellow Urine Appearance Clear (Clear) Urine pH 7.5 (4.5-7.5) Ur Specific [place] 1.016 (1.000-1.030) Urine Protein Trace H (Negative) Urine Glucose (UA) Negative (Negative) Urine Ketones Negative (Negative) Urine Blood Negative (Negative) Urine Nitrite Negative (Negative) Urine Bilirubin Negative (Negative) Urine Urobilinogen Negative (Negative) Ur Leukocyte Esterase Negative (Negative) Urine WBC (Auto) 0-5 (0-5) /hpf Urine RBC (Auto) 0-2 (0-2) /hpf U Hyaline Cast (Auto) 0-2 (0-2) /lpf U Epithel Cells (Auto) 0-2 (0-2) /hpf Urine Bacteria (Auto) None Seen (None Seen) Administered Medications Morphine Sulfate (Morphine Sulfate 2 Mg/Ml Carp) 2 mg IV Q3H PRN PRN Reason: Pain Stop: 09/07/24 02:04 Last Admin: 08/24/24 03:17 Dose: 2 mg Documented By: DERREK Discontinued Medications Fentanyl Citrate (Fentanyl Citrate Pf 100 Mcg/2 Ml Vial) 50 mcg IV NOW STA Stop: 08/24/24 00:09 Last Admin: 08/24/24 00:11 Dose: 50 mcg Documented By: DERREK Hydromorphone HCl (Hydromorphone Inj 0.5 Mg/0.5 Ml Syr) 0.5 mg IV NOW STA Stop: 08/24/24 00:34 Last Admin: 08/24/24 00:37 Dose: 0.5 mg Documented By: DERREK Sodium Chloride (Nss) 500 mls @ 999 mls/hr IV .Q31M ONE Stop: 08/24/24 01:11 Last Infusion: 08/24/24 01:24 Dose: Infused Documented By: Admin: 08/24/24 00:44 Dose: 999 mls/hr Documented By: DERREK Acetaminophen (Ofirmev) 1,000 mg in 100 mls @ 400 mls/hr IV NOW STA Stop: 08/24/24 02:13 Last Infusion: 08/24/24 02:48 Dose: Infused Documented By: Admin: 08/24/24 02:15 Dose: 400 mls/hr Documented By: DERREK Metoprolol Tartrate (Metoprolol Tartrate 1 Mg/Ml Vial) 2.5 mg IV NOW STA Stop: 08/24/24 00:56 Last Admin: 08/24/24 01:58 Dose: 2.5 mg Documented By: DERREK Olanzapine (Olanzapine 10 Mg/2.1 Ml Sdv) 2.5 mg IM NOW STA Stop: 08/24/24 01:08 Last Admin: 08/24/24 01:20 Dose: 2.5 mg Documented By: DERREK Imaging Data Radiologist's Impression: Hip X-Ray 08/23/24 23:48 EXAM: XR hip RT min 2V CLINICAL HISTORY: PT FELL, PAIN IN RT HIP KFK POSSIBLE FX TECHNIQUE: X-ray images of the right hip joints were obtained in anteroposterior (AP) and lateral projection. COMPARISON: No prior studies are available for comparison. FINDINGS: Pelvic Bones: Diffuse decreased bone density. An irregular radiolucent line extending from the greater trochanter medially and inferiorly associated with a cortical breach, a detached small bone fragment, and apparent superior migration of the right femur, highly suspicious for comminuted intertrochanteric fracture. Hip Joints: Decreased hip joint space with subchondral sclerosis and marginal osteophytes. No hip joint dislocation. No signs of acetabular fracture or dysplasia. Femoral heads are normal and centered within the acetabulum. No evidence of fractures, avascular necrosis, or significant deformities. Symphysis Pubis: No evidence of separation or widening. Soft Tissues: Vascular calcification is noted. Pelvic enthesophytes are noted. IMPRESSION: 1. High suspicion of comminuted intertrochanteric femoral fracture with apparent superior migration of the right femur. Clinical correlation is advised and if clinically indicated please correlate with a pelvic CT scan. 2. Degenerative changes of the right hip joint with no evident dislocation. DISCLAIMER:A subtle bone abnormality or fracture may not be readily apparent on x-rays, thus clinical correlation and further imaging including follow up CT, MRI, or follow up x-rays are advised as needed. [facility]'s ER was called at [phone] at 11:56 PM BEEF TRIMMER, 08/23/2024, and Nurse Mariya was informed regarding the presence of Significant Medical Findings on this report. Electronically signed by Pawan Jacques 08-24-2024 01:00 AM Hand X-Ray 08/24/24 00:13 EXAM: XR hand RT min 3V routine CLINICAL HISTORY: PT FELL, PAIN IN RT HAND INTO WRIST KFK BEST POSSIBLE TECHNIQUE: [id number]-ray images of the right hand were obtained in PA, oblique/[id number] lateral projections./OBX.5.1.2/OBX.5.1 COMPARISON: No prior studies are available for comparison. FINDINGS: Bone Structure: Generalized decreased bone density is seen, due to senile osteopenia. A subtle lucent line is seen at the radial styloid process raising the possibility of undisplaced fracture. A few bony chips are seen along the lateral aspect of the wrist. A small linear radiolucent shadow is seen in the subchondral region of the distal head of the 4th finger's middle phalanx, which could represent a fracture line. Joint Spaces: Questionable/subtle subluxation of the proximal phalanx is seen at the first metacarpophalangeal joint. No definite evidence of joint effusion. Soft Tissues: Soft tissues appear unremarkable. No definite soft tissue swelling or foreign bodies were noted. Additional Findings: Senile degenerative changes are seen at the first carpometacarpal joint and proximal and distal interphalangeal joints. Subarticular sclerosis is also seen at the first carpometacarpal joint. Senile vascular calcification is seen in the major arteries of the forearm. No signs of suspicious lytic, or sclerotic lesions. IMPRESSION: 1. Subtle lucent line is seen at the radial styloid process raising the possibility of undisplaced fracture. A few bony chips are seen along the lateral aspect of the wrist. Clinical correlation for focal tenderness and further workup is advised. OBX.[id number]. A small linear radiolucent shadow is seen in the subchondral region of the distal head of the 4th finger's middle phalanx, which could represent a fracture line, follow-up /OBX.5.1.1OBX.5.1.2 clinical correlation are advised./OBX.5.1.2/OBX.5.1 3. First carpometacarpal joint osteoarthritis. Disclaimer: A subtle bone abnormality or fracture may not be readily apparent on X-rays, thus clinical correlation and further imaging including follow-up CT, MRI, or follow-up X-rays are advised as needed. Electronically signed by Pawan Jacques 08-24-2024 01:55 AM Wrist X-Ray 08/24/24 00:13 EXAM: XR wrist RT min 3V routine CLINICAL HISTORY: PT FELL, PAIN IN RT HAND INTO WRIST KFK BEST POSSIBLE TECHNIQUE: X-ray images of the right wrist were obtained in anteroposterior (AP), lateral, and oblique projections. COMPARISON: No prior studies are available for comparison. FINDINGS: Bone Structure: Generalized decreased bone density is seen, due to senile osteopenia. The lucent line is seen in the distal shaft of radius/styloid process raising the possibility of undisplaced fracture. Few bony chips are seen along the lateral aspect of the distal radius. No evidence of dislocation. Joint Spaces: Questionable/subtle subluxation of the proximal phalanx is seen at the first metacarpophalangeal joint. No definite evidence of joint effusion. Soft Tissues: Mild soft tissue swelling is seen around the wrist. Additional Findings: Senile degenerative changes are seen at the first carpometacarpal joint. Subarticular sclerosis is also seen along the articular surface. Senile vascular calcification is seen in the major arteries of the forearm. No signs of suspicious lytic, or sclerotic lesions. IMPRESSION: 1. The lucent line is seen in the distal shaft of radius/styloid process raising the possibility of undisplaced fracture. Few bony chips are seen along the lateral aspect of the distal radius. Clinical correlation for focal tenderness and further workup is advised 2. Degenerative changes seen at the first carpometacarpal joint. Disclaimer: A subtle bone abnormality or fracture may not be readily apparent on X-rays, thus clinical correlation and further imaging including follow-up CT, MRI, or follow-up X-rays are advised as needed. Electronically signed by Pawan Jacques 08-24-2024 01:43 AM Chest X-Ray 08/24/24 00:59 EXAM: XR chest 1V portable CLINICAL HISTORY: HTN, KFK TECHNIQUE: An X-ray image of the chest is obtained in AP projection. COMPARISON: This examination has been compared with a prior x-ray dated 03/14/2024. FINDINGS: Pulmonary Parenchyma: Chest leads are seen. Haziness seen in the right mid and lower zone. No evidence of consolidation or collapse. Heart and Mediastinum: Heart size appears enlarged, however, this is an AP projection. Well-defined density is identified below the aortic arch likely a prominent pulmonary conus. Bilateral hilar vascular congestion seen. Cardiac pacemaker device in place. Bony Thorax: The bony thorax appears intact without fractures or deformities. Soft Tissues: Soft tissues overlying the chest wall are unremarkable. Degenerative changes in visualized spine with osteophytes. IMPRESSION: 1. Haziness seen in the right mid and lower zones would recommend clinical and lab correlation to rule out the possibility of pulmonary infection. 2. No significant interval changes. Electronically signed by Pawan Jacques 08-24-2024 02:38 AM Discharge Plan Visit Data Chief Complaint: Hip Pain Stated Complaint: Fall, R Hip Pain ED Provider: Ronit Patrick Discharge Problem: Fracture of hip, right, closed Patient Disposition: Admitted As Inpatient Discharge Instructions Interventions: ED Discharge Assessment Last Done: 08/24/24 04:13
[2024-08-24 00:37] LABS: Alanine Aminotransferase 12 U/L (7-52); Albumin Globulin Ratio 1.2 (0.9-2); Albumin Level 3.6 gm/dl (3.4-5.0); Alkaline Phosphatase 75 U/L (34-104); Anion Gap 9 (3-11); BUN Creatinine Ratio 25.7 (10-20); Bilirubin,Total 0.5 mg/dl (0.2-1.0); Blood Urea Nitrogen 35 mg/dl (6-23); Calcium 8.8 mg/dl (8.6-10.3); Carbon Dioxide 24 mmol/L (21-32); Chloride 109 mmol/L (98-107); Creatinine Clr Calc Pharmacy 41.6 ml/min; Globulin 3.1 gm/dl (2.5-4.0); Glucose 113 mg/dl (70-99(Fasting)); Sodium 142 mmol/L (136-145); Total Protein 6.7 gm/dl (6.0-8.3)
[2024-08-24] MEDS: HYDROmorphone INJ 0.5 MG/0.5 ML SYR IV STA (00:37)
[2024-08-24] MEDS: SODIUM CHLORIDE 0.9% 500 ML IV ONE (00:44)
[2024-08-24 00:50] LABS: Appearance Urine Clear (Clear); Bacteria Urine Automated None Seen (None Seen); Bilirubin Urine Negative (Negative); Blood Urine Negative (Negative); Cast Urine Automated 0-2 /lpf (0-2); Color Urine Yellow; Epithelial Cell Urine Auto 0-2 /hpf (0-2); Glucose Urine UA Negative (Negative); Ketones Urine Negative (Negative); Leukocyte Esterase Urine Negative (Negative); Nitrite Urine Negative (Negative); Protein Urine Trace (Negative); RBC Urine Automated 0-2 /hpf (0-2); Specific Gravity Urine 1.016 (1.000-1.030); Urobilinogen Urine Negative (Negative); WBC Urine Automated 0-5 /hpf (0-5); pH Urine 7.5 (4.5-7.5)
--- NOTE | 2024-08-24 01:01 | XRay Report ---
EXAM: XR hip RT min 2V CLINICAL HISTORY: PT FELL, PAIN IN RT HIP KFK POSSIBLE FX TECHNIQUE: X-ray images of the right hip joints were obtained in anteroposterior (AP) and lateral projection. COMPARISON: No prior studies are available for comparison. FINDINGS: Pelvic Bones: Diffuse decreased bone density. An irregular radiolucent line extending from the greater trochanter medially and inferiorly associated with a cortical breach, a detached small bone fragment, and apparent superior migration of the right femur, highly suspicious for comminuted intertrochanteric fracture. Hip Joints: Decreased hip joint space with subchondral sclerosis and marginal osteophytes. No hip joint dislocation. No signs of acetabular fracture or dysplasia. Femoral heads are normal and centered within the acetabulum. No evidence of fractures, avascular necrosis, or significant deformities. Symphysis Pubis: No evidence of separation or widening. Soft Tissues: Vascular calcification is noted. Pelvic enthesophytes are noted. IMPRESSION: 1. High suspicion of comminuted intertrochanteric femoral fracture with apparent superior migration of the right femur. Clinical correlation is advised and if clinically indicated please correlate with a pelvic CT scan. 2. Degenerative changes of the right hip joint with no evident dislocation. DISCLAIMER:A subtle bone abnormality or fracture may not be readily apparent on x-rays, thus clinical correlation and further imaging including follow up CT, MRI, or follow up x-rays are advised as needed. [facility]'s ER was called at [phone] at 11:56 PM DIE MAKER, 08/23/2024, and Nurse Mariya was informed regarding the presence of Significant Medical Findings on this report. Electronically signed by Pawan Jacques 08-24-2024 01:00 AM
[2024-08-24] MEDS ORDERED: OLANZapine 10 MG/2.1 ML SDV IM PRN (01:07)
[2024-08-24] MEDS: OLANZapine 10 MG/2.1 ML SDV IM STA ×2 (01:20→04:48)
--- NOTE | 2024-08-24 01:43 | XRay Report ---
EXAM: XR wrist RT min 3V routine CLINICAL HISTORY: PT FELL, PAIN IN RT HAND INTO WRIST KFK BEST POSSIBLE TECHNIQUE: X-ray images of the right wrist were obtained in anteroposterior (AP), lateral, and oblique projections. COMPARISON: No prior studies are available for comparison. FINDINGS: Bone Structure: Generalized decreased bone density is seen, due to senile osteopenia. The lucent line is seen in the distal shaft of radius/styloid process raising the possibility of undisplaced fracture. Few bony chips are seen along the lateral aspect of the distal radius. No evidence of dislocation. Joint Spaces: Questionable/subtle subluxation of the proximal phalanx is seen at the first metacarpophalangeal joint. No definite evidence of joint effusion. Soft Tissues: Mild soft tissue swelling is seen around the wrist. Additional Findings: Senile degenerative changes are seen at the first carpometacarpal joint. Subarticular sclerosis is also seen along the articular surface. Senile vascular calcification is seen in the major arteries of the forearm. No signs of suspicious lytic, or sclerotic lesions. IMPRESSION: 1. The lucent line is seen in the distal shaft of radius/styloid process raising the possibility of undisplaced fracture. Few bony chips are seen along the lateral aspect of the distal radius. Clinical correlation for focal tenderness and further workup is advised 2. Degenerative changes seen at the first carpometacarpal joint. Disclaimer: A subtle bone abnormality or fracture may not be readily apparent on X-rays, thus clinical correlation and further imaging including follow-up CT, MRI, or follow-up X-rays are advised as needed. Electronically signed by Pawan Jacques 08-24-2024 01:43 AM
[2024-08-24 01:45] LABS: Potassium 3.9 mmol/L (3.5-5.1)
[2024-08-24 01:56] LABS: INR 1.1 (0.9-1.1); Partial Thromboplastin Ratio 0.9; Partial Thromboplastin Time 24 Seconds (21-31); Prothrombin Time 11.8 Seconds (9.0-12.0)
--- NOTE | 2024-08-24 01:56 | XRay Report ---
EXAM: XR hand RT min 3V routine CLINICAL HISTORY: PT FELL, PAIN IN RT HAND INTO WRIST KFK BEST POSSIBLE TECHNIQUE: [id number].[id number].5.1.1X-ray images of the right hand were obtained in PA, oblique/OBX.5.1.1OBX.5.1.2 lateral projections./OBX.5.1.2/OBX.5.1 COMPARISON: No prior studies are available for comparison. FINDINGS: Bone Structure: Generalized decreased bone density is seen, due to senile osteopenia. A subtle lucent line is seen at the radial styloid process raising the possibility of undisplaced fracture. A few bony chips are seen along the lateral aspect of the wrist. A small linear radiolucent shadow is seen in the subchondral region of the distal head of the 4th finger's middle phalanx, which could represent a fracture line. Joint Spaces: Questionable/subtle subluxation of the proximal phalanx is seen at the first metacarpophalangeal joint. No definite evidence of joint effusion. Soft Tissues: Soft tissues appear unremarkable. No definite soft tissue swelling or foreign bodies were noted. Additional Findings: Senile degenerative changes are seen at the first carpometacarpal joint and proximal and distal interphalangeal joints. Subarticular sclerosis is also seen at the first carpometacarpal joint. Senile vascular calcification is seen in the major arteries of the forearm. No signs of suspicious lytic, or sclerotic lesions. IMPRESSION: 1. Subtle lucent line is seen at the radial styloid process raising the possibility of undisplaced fracture. A few bony chips are seen along the lateral aspect of the wrist. Clinical correlation for focal tenderness and further workup is advised. OBX.5.1OBX.5.1.12. A small linear radiolucent shadow is seen in the subchondral region of the distal head of the 4th finger's middle phalanx, which could represent a fracture line, follow-up /OBX.5.1.1OBX.5.1.2 clinical correlation are advised./OBX.5.1.2/OBX.5.1 3. First carpometacarpal joint osteoarthritis. Disclaimer: A subtle bone abnormality or fracture may not be readily apparent on X-rays, thus clinical correlation and further imaging including follow-up CT, MRI, or follow-up X-rays are advised as needed. Electronically signed by Pawan Jacques 08-24-2024 01:55 AM
[2024-08-24] MEDS: METOPROLOL TARTRATE 1 MG/ML VIAL IV STA (01:58)
--- NOTE | 2024-08-24 02:03 | History & Physical Report ---
Date of Service August 24, 2024 Assessment & Plan (1) Asymptomatic hypertensive urgency: Plan: Hypertensive urgency Secondary to traumatic right hip fracture and agitation, history of dementia History ambulatory dysfunction hx CAD SSS status post PPM off Coumadin due to fall risk, device battery reaching recommended replacement time as of last remote transmission as per outpatient cardiology note 08/19. No benefit from battery replacement as per discussion with outpatient cardiology provider as per . Valvular heart disease (mild , moderate MR/TR, TTE 2023) NSVT hyperlipidemia currently not on statin Rx seizure disorder, on Keppra Rx hx NAFLD Acute on chronic anemia, hemoglobin drop from baseline possibly from blood loss secondary to trauma history upper extremity DVT as per records hypothyroidism, TSH markedly elevated at 16 Hyperglycemia rule out DM Medical telemetry IV Lopressor 1 dose now Analgesia Delirium precautions, Zyprexa as needed agitation Orthopedics consult Re: Right hip fracture, possible right wrist fracture on x-r ay N.p.o. until patient seen by Orthopedics in anticipation of procedure Patient family cognizant that patient's quality of life has been on steady decline due to progressive dementia over the last 6 months.. Family open to palliative care/hospice if surgery not recommended by Orthopedics owing to patient circumstances. Recommend Cardiology preop eval due to patient's pacemaker issues if surgery recommended by Orthopedics and family agreeable to procedure. Increase current levothyroxine dose from 88 mcg to 100 mcg daily, recheck outpatient TSH after 6 weeks. Check hemoglobin A1c DVT prophylaxis. SCDs re: blood loss from injury, possible surgery DNR Patient requesting updates providers. Ms. Blanchardbie Porsha, contact #[phone]. Text document was generated using [employer] voice recognition software. It may contain grammatical or spelling errors. Kindly contact undersigned for clarification of any documentation item in question. History of Present Illness Chief Complaint: Fall Primary Care Provider: Elaine moreland [place] ([facility]) History obtained from patient, family, and records. Limited history from patient secondary to dementia. Medical history significant for CAD, SSS status post PPM off Coumadin due to fall risk, valvular heart disease (mild , moderate MR/TR, TTE 2023), NSVT, hypertension, hyperlipidemia, seizure disorder, dementia, NAFLD, chronic anemia (baseline hemoglobin 12), history upper extremity DVT as per records, hypothyroidism, BPH, GERD, skin cancer as per records. Last confinement September 2023 for generalized weakness secondary to COVID-19 illness. Hematuria during confinement. 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 Outpatient specialist follow-up recommended. Patient transitioned to [facility] Care unit from home last February 2024 due to progressive dementia. Cardiology provider recommended discontinuing Coumadin due to recurrent falls/risk during last outpatient visit March 2024 as per . Appropriate function with 2 months remaining for battery/generator longevity on device interrogation at time of visit. Patient found on the floor of his room complaining of right hip pain last night. Right leg obviously shortened and rotated. Patient noted to have contusions of the right hand and ear as well. Patient unable to answer questions regarding headache, chest pain, SOB, syncope. Patient brought to the ER for evaluation. SBP 180s upon arrival at the ER. 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 Allergies Allergy/AdvReac Type Severity Reaction Status Date / Time Iodinated Contrast Media Allergy Severe trouble Verified 08/24/24 01:31 breathing/hives Home Medications Medication Instructions Recorded Confirmed Type finasteride 5 mg tablet (Proscar) 5 mg PO QAM 11/20/18 08/24/24 History levetiracetam 500 mg 500 mg PO HS 11/20/18 08/24/24 History tablet,extended release 24 hr (Keppra XR) levetiracetam 750 mg 1,500 mg PO HS 11/20/18 08/24/24 History tablet,extended release 24 hr (Keppra XR) levothyroxine 88 mcg tablet 88 mcg PO DAILYBB 11/20/18 08/24/24 History nitroglycerin 0.4 mg sublingual 0.4 mg sublingual .Q 5 MINUTES PRN 11/20/18 08/24/24 History tablet (Nitrostat) Chest Pain amiodarone 200 mg tablet 200 mg PO QAM 07/01/19 08/24/24 History metoprolol succinate 100 mg 100 mg PO QAM 09/23/23 08/24/24 History tablet,extended release 24 hr losartan 50 mg tablet 50 mg PO QAM #30 tabs 09/27/23 08/24/24 Rx acetaminophen 650 mg rectal 650 mg MD Q6H PRN Fever Or Pain 08/24/24 08/24/24 History suppository atropine sulfate (PF) 1 % eye 2 drp .EVERY 1 HOUR PRN EXCESSIVE 08/24/24 08/24/24 History drops in a dropperette SECRETIONS lorazepam 2 mg/mL oral concentrate 0.5 mg PO Q4 PRN ANXIETY/AGITATION 08/24/24 08/24/24 History (Lorazepam Intensol) mirtazapine 30 mg tablet 30 mg PO QPM 08/24/24 08/24/24 History morphine concentrate 20 mg/mL oral 5 mg PO .EVERY 1 HOUR PRN 08/24/24 08/24/24 History syringe (FOR ORAL USE ONLY) PAIN/DIFFICULTY BREATHING morphine concentrate 20 mg/mL oral 5 mg PO DAILY 08/24/24 08/24/24 History syringe (FOR ORAL USE ONLY) olanzapine 2.5 mg tablet (Zyprexa) 2.5 mg PO HS 08/24/24 08/24/24 History ondansetron 4 mg disintegrating 4 mg PO Q8H PRN NAUSEA;VOMITING 08/24/24 08/24/24 History tablet polyethylene glycol 3350 17 17 g PO .EVERY 24 HOURS PRN 08/24/24 08/24/24 Histor y gram/dose oral powder Constipation sennosides 8.6 mg tablet (senna) 17.2 mg PO HS 08/24/24 08/24/24 History Past Med/Surg History Problem List Asymptomatic hypertensive urgency Fracture of hip, right, closed (Acute) COVID Alzheimer's dementia Hematuria UTI (urinary tract infection) CHF (congestive heart failure) Pulmonary edema (Acute) Elevated troponin I level (Acute) Edema (Acute) Generalized muscle weakness (Acute) History of colon polyps Encounter for pre-operative examination Deep venous thrombosis of left upper extremity Elevated troponin DVT prophylaxis Syncope and collapse Non-sustained ventricular tachycardia (Chronic) Hypertension (Chronic) CAD (coronary artery disease) (Chronic) History of prior RCA interventions with chronic RCA occlusion Symptomatic sinus bradycardia (Chronic) Dyslipidemia (Chronic) Seizure disorder (Chronic) last petite mal 06/2018--on kera---follows with Dr. Meehan Sinus node dysfunction (Chronic) CKD (chronic kidney disease), stage III (Chronic) GERD (gastroesophageal reflux disease) (Chronic) S/P placement of cardiac pacemaker (Chronic) [facility] artery balloon dilation (Chronic) [place] [facility] [place] inguinal her[place] repair (Chronic) left Medical History (Updated 08/24/24 @ 04:36 by Jadon Quintana MD) Renal cyst, left BPH (benign prostatic hyperplasia) Hypothyroidism On anticoagulant therapy warfarin daily Deep vein thrombosis 2018--left arm--unknown reason--on warfarin Hearing deficit Dementia Myocardial Infarction 11/1999--follows with Dr. 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 Trimmer Required: No Beliefs That Will Affect Care: None marital status: Current Living Situation: Alf Feels Safe at Home: Yes Assistive Devices: Walker Review of Systems Review of Systems: Could not be reliably obtained secondary to dementia Physical Exam Physical Exam: GENERAL: Demented, agitated, no respiratory distress SKIN: Pallor, warm HEENT: Pale palpebral conjunctivae, no ptosis, dry buccal mucosa NECK : Supple, no tenderness CHEST : CTA, no tenderness HEART : RRR, systolic murmur ABDOMEN: Some distention, nontender EXTREMITIES : Right hip tenderness, tender right hand contusion NEUROLOGIC : Agitated, demented, no facial asymmetry, gait and stance not assessed Results & Data Results & Data Vital Signs (Past 12 Hours) Vital Signs Temp Pulse Resp BP Pulse Ox O2 Del Method 08/24/24 01:58 69 157/66 H 08/24/24 01:00 66 21 98 08/24/24 00:00 81 27 H 169/74 H 99 08/23/24 23:53 36.7 C 84 20 185/95 H 99 Room Air 08/23/24 23:50 83 Laboratory Results Laboratory Results WBC 11.10 K/ul (4.8-10.8) H 08/24/24 00:00 RBC 3.47 M/uL (4.70-6.10) L 08/24/24 00:00 Hgb 11.1 g/dl (14.0-18.0) L 08/24/24 00:00 Hct 33.8 % (42.0-52.0) L 08/24/24 00:00 MCV 97.4 fL (80.0-100.0) 08/24/24 00:00 MCH 32.0 pg (25.0-34.0) 08/24/24 00:00 MCHC 32.8 g/dL (32.0-36.0) 08/24/24 00:00 RDW Std Deviation 48.0 fL (36.4-46.3) H 08/24/24 00:00 RDW Coeff of Yuly 13.4 % (11.5-14.5) 08/24/24 00:00 Plt Count 190 K/uL (130-400) 08/24/24 00:00 MPV 10.6 fL (9.4-12.4) 08/24/24 00:00 Immature Gran % (Auto) 0.2 % 08/24/24 00:00 Neut % (Auto) 74.8 % 08/24/24 00:00 Lymph % (Auto) 17.7 % 08/24/24 00:00 [place] % (Auto) 5.9 % 08/24/24 00:00 Eos % (Auto) 0.9 % 08/24/24 00:00 Baso % (Auto) 0.5 % 08/24/24 00:00 Neut # (Auto) 8.32 K/uL (1.40-6.50) H 08/24/24 00:00 Lymph # (Auto) 1.96 K/uL (1.20-3.40) 08/24/24 00:00 [place]aus # (Auto) 0.65 K/uL (0.11-0.59) H 08/24/24 00:00 Eos # (Auto) 0.10 K/uL (0.00-0.50) 12/01/24 00:00 Baso # (Auto) 0.05 K/uL (0.00-0.20) 08/24/24 00:00 Immature Gran # (Auto) 0.02 K/uL (0.01-0.20) 08/24/24 00:00 PT 11.8 Seconds (9.0-12.0) 08/24/24 01:16 INR 1.1 (0.9-1.1) 08/24/24 01:16 APTT 24 Seconds (21-31) 08/24/24 01:16 PTT Ratio 0.9 08/24/24 01:16 Sodium 142 mmol/L (136-145) 08/24/24 00:00 Potassium 3.9 mmol/L (3.5-5.1) 08/24/24 01:16 Chloride 109 mmol/L (98-107) H 08/24/24 00:00 Carbon Dioxide 24 mmol/L (21-32) 08/24/24 00:00 Anion Gap 9 (3-11) 08/24/24 00:00 BUN 35 mg/dl (6-23) H 08/24/24 00:00 Creatinine 1.36 mg/dl (0.6-1.4) 08/24/24 00:00 Est Cr Clr Drug Dosing 41.6 ml/min 08/24/24 00:00 eGFR 49.74 08/24/24 00:00 BUN/Creatinine Ratio 25.7 (10-20) H 08/24/24 00:00 Glucose 113 mg/dl (70-99(Fasting)) H 08/24/24 00:00 Calcium 8.8 mg/dl (8.6-10.3) 08/24/24 00:00 Magnesium 2.0 mg/dl (1.7-2.4) 08/24/24 01:16 Total Bilirubin 0.5 mg/dl (0.2-1.0) 08/24/24 00:00 AST 16 U/L (13-39) 08/24/24 01:16 ALT 12 U/L (7-52) 08/24/24 00:00 Alkaline Phosphatase 75 U/L (34-104) 08/24/24 00:00 Total Protein 6.7 gm/dl (6.0-8.3) 08/24/24 00:00 Albumin 3.6 gm/dl (3.4-5.0) 08/24/24 00:00 Globulin 3.1 gm/dl (2.5-4.0) 08/24/24 00:00 Albumin/Globulin Ratio 1.2 (0.9-2) 08/24/24 00:00 Urine Color Yellow 08/24/24 00:20 Urine Appearance Clear (Clear) 08/24/24 00:20 Urine pH 7.5 (4.5-7.5) 08/24/24 00:20 Ur Specific [place] 1.016 (1.000-1.030) 08/24/24 00:20 Urine Protein Trace (Negative) H 08/24/24 00:20 Urine Glucose (UA) Negative (Negative) 08/24/24 00:20 Urine Ketones Negative (Negative) 08/24/24 00:20 Urine Blood Negative (Negative) 08/24/24 00:20 Urine Nitrite Negative (Negative) 08/24/24 00:20 Urine Bilirubin Negative (Negative) 08/24/24 00:20 Urine Urobilinogen Negative (Negative) 08/24/24 00:20 Ur Leukocyte Esterase Negative (Negative) 08/24/24 00:20 Urine WBC (Auto) 0-5 /hpf (0-5) 08/24/24 00:20 Urine RBC (Auto) 0-2 /hpf (0-2) 08/24/24 00:20 U Hyaline Cast (Auto) 0-2 /lpf (0-2) 08/24/24 00:20 U Epithel Cells (Auto) 0-2 /hpf (0-2) 08/24/24 00:20 Urine Bacteria (Auto) None Seen (None Seen) 08/24/24 00:20 Impressions Hip X-Ray 08/23/24 23:48 EXAM: XR hip RT min 2V CLINICAL HISTORY: PT FELL, PAIN IN RT HIP KFK POSSIBLE FX TECHNIQUE: X-ray images of the right hip joints were obtained in anteroposterior (AP) and lateral projection. COMPARISON: No prior studies are available for comparison. FINDINGS: Pelvic Bones: Diffuse decreased bone density. An irregular radiolucent line extending from the greater trochanter medially and inferiorly associated with a cortical breach, a detached small bone fragment, and apparent superior migration of the right femur, highly suspicious for comminuted intertrochanteric fracture. Hip Joints: Decreased hip joint space with subchondral sclerosis and marginal osteophytes. No hip joint dislocation. No signs of acetabular fracture or dysplasia. Femoral heads are normal and centered within the acetabulum. No evidence of fractures, avascular necrosis, or significant deformities. Symphysis Pubis: No evidence of separation or widening. Soft Tissues: Vascular calcification is noted. Pelvic enthesophytes are noted. IMPRESSION: 1. High suspicion of comminuted intertrochanteric femoral fracture with apparent superior migration of the right femur. Clinical correlation is advised and if clinically indicated please correlate with a pelvic CT scan. 2. Degenerative changes of the right hip joint with no evident dislocation. DISCLAIMER:A subtle bone abnormality or fracture may not be readily apparent on x-rays, thus clinical correlation and further imaging including follow up CT, MRI, or follow up x-rays are advised as needed. [facility]'s ER was called at [phone] at 11:56 PM ASSOCIATE QUALITY ENGINEER, 08/23/2024, and Nurse Mariya was informed regarding the presence of Significant Medical Findings on this report. Electronically signed by Pawan Jacques 08-24-2024 01:00 AM Hand X-Ray 08/24/24 00:13 EXAM: XR hand RT min 3V routine CLINICAL HISTORY: PT FELL, PAIN IN RT HAND INTO WRIST KFK BEST POSSIBLE TECHNIQUE: [id number].[id number].5.1.1X-ray images of the right hand were obtained in [place], oblique/OBX.5.1.1OBX.5.1.2 lateral projections./OBX.5.1.2/OBX.5.1 COMPARISON: No prior studies are available for comparison. FINDINGS: Bone Structure: Generalized decreased bone density is seen, due to senile osteopenia. A subtle lucent line is seen at the radial styloid process raising the possibility of undisplaced fracture. A few bony chips are seen along the lateral aspect of the wrist. A small linear radiolucent shadow is seen in the subchondral region of the distal head of the 4th finger's middle phalanx, which could represent a fracture line. Joint Spaces: Questionable/subtle subluxation of the proximal phalanx is seen at the first metacarpophalangeal joint. No definite evidence of joint effusion. Soft Tissues: Soft tissues appear unremarkable. No definite soft tissue swelling or foreign bodies were noted. Additional Findings: Senile degenerative changes are seen at the first carpometacarpal joint and proximal and distal interphalangeal joints. Subarticular sclerosis is also seen at the first carpometacarpal joint. Senile vascular calcification is seen in the major arteries of the forearm. No signs of suspicious lytic, or sclerotic lesions. IMPRESSION: 1. Subtle lucent line is seen at the radial styloid process raising the possibility of undisplaced fracture. A few bony chips are seen along the lateral aspect of the wrist. Clinical correlation for focal tenderness and further workup is advised. OBX.5.1OBX.5.1.12. A small linear radiolucent shadow is seen in the subchondral region of the distal head of the 4th finger's middle phalanx, which could represent a fracture line, follow-up /OBX.5.1.1OBX.5.1.2 clinical correlation are advised./OBX.5.1.2/OBX.5.1 3. First carpometacarpal joint osteoarthritis. Disclaimer: A subtle bone abnormality or fracture may not be readily apparent on X-rays, thus clinical correlation and further imaging including follow-up CT, MRI, or follow-up X-rays are advised as needed. Electronically signed by Pawan Jacques 08-24-2024 01:55 AM Wrist X-Ray 08/24/24 00:13 EXAM: XR wrist RT min 3V routine CLINICAL HISTORY: PT FELL, PAIN IN RT HAND INTO WRIST KFK BEST POSSIBLE TECHNIQUE: X-ray images of the right wrist were obtained in anteroposterior (AP), lateral, and oblique projections. COMPARISON: No prior studies are available for comparison. FINDINGS: Bone Structure: Generalized decreased bone density is seen, due to senile osteopenia. The lucent line is seen in the distal shaft of radius/styloid process raising the possibility of undisplaced fracture. Few bony chips are seen along the lateral aspect of the distal radius. No evidence of dislocation. Joint Spaces: Questionable/subtle subluxation of the proximal phalanx is seen at the first metacarpophalangeal joint. No definite evidence of joint effusion. Soft Tissues: Mild soft tissue swelling is seen around the wrist. Additional Findings: Senile degenerative changes are seen at the first carpometacarpal joint. Subarticular sclerosis is also seen along the articular surface. Senile vascular calcification is seen in the major arteries of the forearm. No signs of suspicious lytic, or sclerotic lesions. IMPRESSION: 1. The lucent line is seen in the distal shaft of radius/styloid process raising the possibility of undisplaced fracture. Few bony chips are seen along the lateral aspect of the distal radius. Clinical correlation for focal tenderness and further workup is advised 2. Degenerative changes seen at the first carpometacarpal joint. Disclaimer: A subtle bone abnormality or fracture may not be readily apparent on X-rays, thus clinical correlation and further imaging including follow-up CT, MRI, or follow-up X-rays are advised as needed. Electronically signed by Pawan Jacques 08-24-2024 01:43 AM Diagnostic Findings EKG as per my interpretation :Rate 80, paced rhythm
[2024-08-24] MEDS ORDERED: ACETAMINOPHEN 325 MG TAB PO PRN (02:05)
[2024-08-24] MEDS ORDERED: PROMETHAZINE 6.25 MG/50.25 ML BAG IV PRN (02:05)
[2024-08-24] MEDS ORDERED: NALOXONE HCL 0.4 MG/1 ML VIAL/CARP IV PRN (02:06)
[2024-08-24] MEDS ORDERED: bisacodyL 10 MG SUPP PR PRN (02:06)
[2024-08-24] MEDS: ACETAMINOPHEN 1,000 MG/100 ML VIAL IV STA (02:15)
--- NOTE | 2024-08-24 02:38 | XRay Report ---
EXAM: XR chest 1V portable CLINICAL HISTORY: HTN, KFK TECHNIQUE: An X-ray image of the chest is obtained in AP projection. COMPARISON: This examination has been compared with a prior x-ray dated 03/14/2024. FINDINGS: Pulmonary Parenchyma: Chest leads are seen. Haziness seen in the right mid and lower zone. No evidence of consolidation or collapse. Heart and Mediastinum: Heart size appears enlarged, however, this is an AP projection. Well-defined density is identified below the aortic arch likely a prominent pulmonary conus. Bilateral hilar vascular congestion seen. Cardiac pacemaker device in place. Bony Thorax: The bony thorax appears intact without fractures or deformities. Soft Tissues: Soft tissues overlying the chest wall are unremarkable. Degenerative changes in visualized spine with osteophytes. IMPRESSION: 1. Haziness seen in the right mid and lower zones would recommend clinical and lab correlation to rule out the possibility of pulmonary infection. 2. No significant interval changes. Electronically signed by Pawan Jacques 08-24-2024 02:38 AM
[2024-08-24] MEDS: MoRPHine SULFATE 2 MG/ML CARP IV PRN (03:17)
[2024-08-24 03:56] LABS: Thyroid Stimulating Hormone 16.113 uIu/ml (0.300-4.500)
[2024-08-24 04:31] LABS: T4 Free Thyroxine 1.01 ng/dl (0.61-1.60)
[2024-08-24] MEDS: LACTATED RINGER'S 1,000 ML IV ONE (04:47)
[2024-08-24 06:21] LABS: Base Excess VBG -0.8 mEq/L; HCO3 VBG 24 mmol/L; Oxygen Saturation VBG 89.2 %; PCO2 VBG 37 mmHg (38-50); PO2 VBG 58 mmHg; pH VBG 7.41 (7.36-7.41)
[2024-08-24] MEDS ORDERED: LEVOTHYROXINE SODIUM 88 MCG TABLET PO SCH (06:30)
[2024-08-24 06:31] LABS: Hematocrit (blood only) 28.7 % (42.0-52.0); Hemoglobin 9.6 g/dl (14.0-18.0)
[2024-08-24 07:08] LABS: Adenovirus PCR Not Detected (NotDetected); Bordetella parapertussis PCR Not Detected (NotDetected); Bordetella pertussis PCR Not Detected (NotDetected); Chlamydia pneumoniae PCR Not Detected (NotDetected); Coronavirus 229E PCR Not Detected (NotDetected); Coronavirus CoV-2 (COVID19)PCR Not Detected (NotDetected); Coronavirus HKU1 PCR Not Detected (NotDetected); Coronavirus NL63 PCR Not Detected (NotDetected); Coronavirus OC43PCR Not Detected (NotDetected); Human Metapneumovirus PCR Not Detected (NotDetected); Influenza A PCR Not Detected (NotDetected); Influenza B PCR Not Detected (NotDetected); Mycoplasma pneumoniae PCR Not Detected (NotDetected); Parainfluenza Virus 1 PCR Not Detected (NotDetected); Parainfluenza Virus 2 PCR Not Detected (NotDetected); Parainfluenza Virus 3 PCR Not Detected (NotDetected); Parainfluenza Virus 4 PCR Not Detected (NotDetected); Respiratory Syncytial VirusPCR Not Detected (NotDetected); Rhinovirus/Enterovirus PCR Not Detected (NotDetected)
--- NOTE | 2024-08-24 08:17 | XRay Report ---
EXAM: Radiographs of the Right Femur 2 Views INDICATION: Fracture. TECHNIQUE: Frontal and lateral views of the right femur. COMPARISON: No relevant prior studies available. FINDINGS: Bones/joints: There is an impacted angulated intertrochanteric fracture of the right femur. The femur is otherwise intact. No dislocation. Soft tissues: No abnormality noted. No radiopaque foreign body noted. Vasculature: Atherosclerotic calcification noted throughout the thigh. No soft tissue gas collection. IMPRESSION: Acute impacted and angulated intertrochanteric fracture of the right femur noted. ACT 112: Negative or not required by law. Electronically signed by Shruti Soriano 08-24-2024 08:17 AM
[2024-08-24] MEDS: FINASTERIDE 5 MG TAB PO SCH (08:49)
[2024-08-24] MEDS: LOSARTAN POTASSIUM 50 MG TAB PO SCH (08:49)
[2024-08-24] MEDS: AMIODARONE 200 MG TAB PO SCH (08:49)
[2024-08-24] MEDS: METOPROLOL SUCC 50MG EXT REL TAB PO SCH (08:50)
[2024-08-24] MEDS: LEVOTHYROXINE SODIUM 100 MCG TABLET PO SCH (08:50)
--- NOTE | 2024-08-24 09:47 | CT Scan Report ---
EXAM: CT Pelvis Without Intravenous Contrast INDICATION: Right hip pain following unwitnessed fall. TECHNIQUE: Axial computed tomography images of the pelvis without intravenous contrast. Sagittal and coronal reformatted images were created and reviewed. This CT exam was performed using one or more of the following dose reduction techniques: automated exposure control, adjustment of the mA and/or kV according to patient size, and/or use of iterative reconstruction technique. COMPARISON: Plain radiographs 08/23/2024. FINDINGS: Bones/joints: There is an acute intertrochanteric fracture of the right femur with mild comminution. There is impaction and near 90 degrees angulation. Soft tissues: Soft tissue and mild contusion noted about the right hip. Vasculature: Distal abdominal aorta is dilated to 2.5 cm and moderately atherosclerotic. Stomach and bowel: Moderate stool in the colon with multiple left diverticula noted. No pelvic inflammation. Bladder: The urinary bladder is decompressed by catheter. IMPRESSION: 1. Acute intertrochanteric fracture of the right femur. 2. Moderate colonic stool and left diverticulosis. ACT 112: Negative or not required by law. Electronically signed by Shruti Soriano 08-24-2024 09:46 AM
[2024-08-24] MEDS: MoRPHine SULFATE 10 MG/0.5 ML UDP PO SCH (10:20)
--- NOTE | 2024-08-24 12:14 | Electrocardiogram Report ---
Test Reason : Blood Pressure : */* mmHG Vent. Rate : 78 BPM Atrial Rate : 68 BPM P-R Int : 198 ms QRS Dur : 198 ms QT Int : 502 ms P-R-T Axes : 165 -74 88 degrees QTcB Int : 572 ms Poor data quality, interpretation may be adversely affected AV dual-paced rhythm with occasional ventricular-paced complexes Abnormal ECG When compared with ECG of 14-Mar-2024 17:48, Vent. rate has increased by 17 bpm Confirmed by Finesse Norton ([id number]) on 08/24/2024 12:14:13 PM Referred By: Amina moreland [facility] Confirmed By: Finesse Norton
--- NOTE | 2024-08-24 14:27 | Communication Note ---
Date of Service: August 24, 2024 Patient was seen and examined at bedside. 89-year-old male with PMH of CAD, SSS s/p PPM off of Coumadin due to fall risk, NSVT, HTN, HLD, seizure disorder, dementia, NAFLD, chronic anemia [baseline hemoglobin of 12], upper extremity DVT, hypothyroidism, BPH, GERD, skin cancer who is a resident of [facility] [since February 2024 due to progressive dementia] was found on the floor of his room complaining of right hip pain prior to arrival, noted to have acute fracture of right femur. He is being managed for the following: Right hip fracture Right wrist fracture History of ambulatory dysfunction Underlying dementia Admitting imagings: Right hip x-ray: Suspicion of comminuted intertrochanteric femoral fracture. Right femur x-ray: Acute impacted and angulated intertrochanteric fracture of the right femur Pelvic CT: Acute intertrochanteric fracture of the right femur. Right hand x-ray And wrist: Subtle lucent line at the radial styloid process raising the possibility of undisplaced fracture. A few bony chips are seen along the lateral aspect of the wrist. Discussed with orthopedics, plan for intramedullary imtiaz x rt femur, Wrist braces x right wrist. Will need cardio for preop clearance. N.p.o. midnight for possible orthopedic intervention tomorrow. Continue with IV fluids, pain management, nausea control. High risk of delirium. Delirium precautions, Zyprexa as needed agitation Abnormal CXR: Admitting CXR with haziness seen in the right mid and lower zones. Per patient's , patient with no fever or flulike illness prior to arrival, admitting WBC minimally elevated likely secondary to acute distress, pt has been afebrile. monitor off of antibiotic for now. Hypertensive urgency: Likely secondary to acute distress. Continue with home blood pressure medication, as needed IV blood pressure medications to help blood pressures to control. Acute on chronic anemia, hemoglobin drop from baseline possibly from blood loss secondary to trauma. Monitor, transfuse for Hb < 7 or for symptomatic anemia Other chronic medical conditions: Continue with/resume home meds as and when able. CAD SSS s/p PPM off Coumadin due to fall risk, device battery reaching anamaria mmended replacement time as of last remote transmission as per outpatient cardiology note 08/19. No benefit from battery replacement as per discussion with outpatient cardiology provider as per . Valvular heart disease (mild , moderate MR/TR, TTE 2023) NSVT hyperlipidemia currently not on statin Rx seizure disorder, on Keppra Rx hx NAFLD history upper extremity DVT as per records hypothyroidism, TSH markedly elevated at 16, Increase current levothyroxine dose from 88 mcg to 100 mcg daily, recheck outpatient TSH after 6 weeks. GOC discussion: Patient family cognizant that patient's quality of life has been on steady decline due to progressive dementia over the last 6 months. Family open to palliative care/hospice if surgery not recommended by Orthopedics owing to patient circumstances. For now plan is for Sx after d/w family, will continue to monitor. Possible palliative involvement come sunday. DVT prophylaxis. SCDs re: blood loss from injury, possible surgery DNR Patient Ms. Daria Story, contact #[phone]. Updated at bedside. For detailed information on the patient, refer to today's H&P note. Text document was generated using [employer] voice recognition software. It may contain grammatical or spelling errors. Kindly contact undersigned for clarification of any documentation item in question.
--- NOTE | 2024-08-24 14:27 | Orthopedic Consultation ---
Date of Consultation August 24, 2024 Assessment & Plan (1) PAF (paroxysmal atrial fibrillation): (2) Asymptomatic hypertensive urgency: (3) Fracture of hip, right, closed: (4) Alzheimer's dementia: (5) CHF (congestive heart failure): (6) Elevated troponin: (7) Syncope and collapse: Plan this is an 89-year-old gentleman who fell in his memory care facility and sustained a closed, traumatic, displaced right intertrochanteric hip fracture. I do long discussion with the patient's who joins him at bedside. The patient is cognitively impaired and as such cannot participate in history, physical exam, or decision making. I explained to the patient's that this fracture represents an unstable injury, and as such, and most patients, we recommend operative intervention to include open versus closed reduction and internal fixation. I did explain to the patient's that often times hip fractures are a harbinger of worse things to come, meaning that this oftentimes signifies the beginning of the end. We discussed this in plain terms. The patient does have a hospice nurse, and recently discontinued anticoagulation for his atrial fibrillation and discontinued routine pacemaker battery exchange. He is also a DNR/DNI. I explained to the patient's that all operative interventions carry with him inherent risk, however considering the patient's fragile medical state, as well as his age, he is at a much higher risk than most for complication from surgery. With regards to the surgery itself, there is risks that include but are not limited to loss of life/limb, DVT, incomplete relief of pain, need for additional surgery, infection, nonunion, malunion, hardware complication, hardware failure, hardware irritation, iatrogenic injury to bone/nerve/tendon/vessel, decrease in ambulatory status. I also explained that with nonoperative care there are significant risks, as well. The risks of nonoperative care include but are not limited to complications of immobility such as DVT/sacral decubitus ulcers/pneumonia/deconditioning. At this time, the patient is pending a cardiology consultation, and the patient's would like to discuss this with the release manager prior to making a decision for surgery. I will check back in with her this evening after she has a chance to discuss with the release manager. History of Present Illness Reason for Consultation: right hip pain Attending Physician: Renetta Roberts MD History of Present Illness Patient is an 89 year old gentleman who presented to the ER this morning after a fall. Patient found on the floor of his room complaining of right hip pain last night. Patient unable to answer questions regarding headache, chest pain, SOB, syncope. Medical history significant for CAD, SSS status post PPM off Coumadin due to fall risk, valvular heart disease (mild , moderate MR/TR, TTE 2023), NSVT, hypertension, hyperlipidemia, seizure disorder, dementia, NAFLD, chronic anemia (baseline hemoglobin 12), history upper extremity DVT as per records, hypothyroidism, BPH, GERD, skin cancer as per records. most recent hospitalization in September 2023 for generalized weakness secondary to COVID-19 illness. following that, the patient transitioned to [facility] from home last February 2024 due to progressive dementia. With regard to his cardiac history, his cardiology provider recommended discontinuing Coumadin due to recurrent falls/risk during last outpatient visit March 2024 as per . Appropriate function with 2 months remaining for battery/generator longevity on device interrogation at time of visit. Patient's is at bedside and did provide additional history. She states that he has been declining significantly over the last few months. She states that he has not been doing much in the way of ambulation, and when he does he uses assistive devices -walker. Allergies Allergy/AdvReac Type Severity Reaction Status Date / Time Iodinated Contrast Media Allergy Severe trouble Verified 08/24/24 01:31 breathing/hives Home Medications Medication Instructions Recorded Confirmed Type finasteride 5 mg tablet (Proscar) 5 mg PO QAM 11/20/18 08/24/24 History levetiracetam 500 mg 500 mg PO HS 11/20/18 08/24/24 History tablet,extended release 24 hr (Keppra XR) levetiracetam 750 mg 1,500 mg PO HS 11/20/18 08/24/24 History tablet,extended release 24 hr (Keppra XR) levothyroxine 88 mcg tablet 88 mcg PO DAILYBB 11/20/18 08/24/24 History nitroglycerin 0.4 mg sublingual 0.4 mg sublingual .Q 5 MINUTES PRN 11/20/18 08/24/24 History tablet (Nitrostat) Chest Pain amiodarone 200 mg tablet 200 mg PO QAM 07/01/19 08/24/24 History metoprolol succinate 100 mg 100 mg PO QAM 09/23/23 08/24/24 History tablet,extended release 24 hr losartan 50 mg tablet 50 mg PO QAM #30 tabs 09/27/23 08/24/24 Rx acetaminophen 650 mg rectal 650 mg GA Q6H PRN Fever Or Pain 08/24/24 08/24/24 History suppository atropine sulfate (PF) 1 % eye 2 drp .EVERY 1 HOUR PRN EXCESSIVE 08/24/24 08/24/24 History drops in a dropperette SECRETIONS lorazepam 2 mg/mL oral concentrate 0.5 mg PO Q4 PRN ANXIETY/AGITATION 08/24/24 08/24/24 History (Lorazepam Intensol) mirtazapine 30 mg tablet 30 mg PO QPM 08/24/24 08/24/24 History morphine concentrate 20 mg/mL oral 5 mg PO .EVERY 1 HOUR PRN 08/24/24 08/24/24 History syringe (FOR ORAL USE ONLY) PAIN/DIFFICULTY BREATHING morphine concentrate 20 mg/mL oral 5 mg PO DAILY 08/24/24 08/24/24 History syringe (FOR ORAL USE ONLY) olanzapine 2.5 mg tablet (Zyprexa) 2.5 mg PO HS 08/24/24 08/24/24 History ondansetron 4 mg disintegrating 4 mg PO Q8H PRN NAUSEA;VOMITING 08/24/24 08/24/24 History tablet polyethylene glycol 3350 17 17 g PO .EVERY 24 HOURS PRN 08/24/24 08/24/24 History gram/dose oral powder Constipation sennosides 8.6 mg tablet (senna) 17.2 mg PO HS 08/24/24 08/24/24 History Patient History Medical History (Updated 08/24/24 @ 14:38 by Tonja Swann DO) Renal cyst, left BPH (benign prostatic hyperplasia) Hypothyroidism On anticoagulant therapy warfarin daily Deep vein thrombosis 2018--left arm--unknown reason--on warfarin Hearing deficit Dementia Myocardial Infarction 11/1999--follows with Dr. 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 He is tender to palpation about his right hip. He has obvious pain with logroll or heel strike. No open wounds appreciated. Patient demonstrates the ability to wiggle his toes. Does not follow commands enough for detailed neurologic exam. Results & Data Vital Signs (Past 12 Hours) Vital Signs Temp Pulse Pulse Resp BP BP Pulse Ox 08/24/24 14:02 37.5 C 64 16 151/74 H 98 08/24/24 13:09 60 17 98 08/24/24 12:03 60 15 97 08/24/24 11:00 60 13 96 08/24/24 10:39 65 12 98 08/24/24 09:00 90 20 97 08/24/24 08:19 60 08/24/24 08:12 62 24 98 08/24/24 07:00 60 13 94 08/24/24 06:00 60 21 93 08/24/24 05:00 60 16 139/71 98 08/24/24 04:56 36.5 C 60 16 139/71 98 08/24/24 04:40 08/24/24 04:40 36.5 C 66 16 139/71 100 08/24/24 04:03 61 15 139/71 95 08/24/24 03:57 61 16 163/75 H 95 08/24/24 03:55 61 08/24/24 02:48 60 151/77 H 08/24/24 02:27 72 24 151/77 H 98 Pulse Ox O2 Del Method O2 Del Method O2 Flow Rate 08/24/24 14:02 Nasal Cannula 2 08/24/24 13:09 Nasal Cannula 2 08/24/24 12:03 Nasal Cannula 2 08/24/24 11:00 Nasal Cannula 2 08/24/24 10:39 Nasal Cannula 2 08/24/24 09:00 Nasal Cannula 2 08/24/24 08:19 08/24/24 08:12 08/24/24 07:00 08/24/24 06:00 08/24/24 05:00 08/24/24 04:56 Room Air 08/24/24 04:40 100 Room Air 08/24/24 04:40 Room Air 08/24/24 04:03 08/24/24 03:57 08/24/24 03:55 08/24/24 02:48 08/24/24 02:27 Diagnostic Findings X-rays of the right femur, right hip, pelvis, and CT of the pelvis were personally interpreted and reviewed. These demonstrate a right intertrochanteric hip fracture. X-rays of the right hand and wrist were personally interpreted and reviewed. These demonstrate a nondisplaced fracture of the distal radius. (4) Alzheimer's dementia Alzheimer's disease onset: unspecified onset (5) CHF (congestive heart failure) Heart failure type: unspecified Heart failure chronicity: chronic Qualified Code(s): I50.9 - Heart failure, unspecified
--- NOTE | 2024-08-24 14:31 | Cardiology Consultation ---
Date of Consultation August 24, 2024 Assessment & Plan (1) Asymptomatic hypertensive urgency: elevated BP upon arrival most likely secondary to stress of a mechanical fall with complicated right hip fracture and having pain BP improved already with treatment Continue cardiac home anti-hypertensive meds; if needed can give hydralazine PRN for goal sBP <170mmHg (2) Alzheimer's dementia: stable (3) Fracture of hip, right, closed: s/p mechanical fall pt is at an acceptable moderate cardiovascular risk for his orthopedic surgery; no further cardiac in patient testing necessary (4) CAD (coronary artery disease): continue toprol high dose (5) GERD (gastroesophageal reflux disease): (6) Sinus node dysfunction: s/p ppm pt is AV paced so his device has not flipped to RAFY and is still has normal function should pt go to the OR for orthopedic surgery no ppm interrogation is necessary as I want to conserve the battery longevity. (7) CKD (chronic kidney disease), stage III: (8) Dyslipidemia: (9) PAF (paroxysmal atrial fibrillation): continue amio; pt in SR ([facility]) not AC due to fall risk Plan no further in patient cardiac recommendations or testing; please re-consult as necessary. History of Present Illness Reason for Consultation: pre op cardiac evaulation Requesting Physician: Dr. Jackson Attending Physician: Renetta Roberts MD History of Present Illness pt was admitted after a mechanical fall found to have a right hip fracture and cardiology is being consulted to risk evaluate him prior to orthopedic surgery. pt has underlying dementia but overall he no appreciative l/d/cp/sob or palpitations pt seen with daughter and at the bedside Allergies Allergy/AdvReac Type Severity Reaction Status Date / Time Iodinated Contrast Media Allergy Severe trouble Verified 08/24/24 01:31 breathing/hives Home Medications Medication Instructions Recorded Confirmed Type finasteride 5 mg tablet (Proscar) 5 mg PO QAM 11/20/18 08/24/24 History levetiracetam 500 mg 500 mg PO HS 11/20/18 08/24/24 History tablet,extended release 24 hr (Keppra XR) levetiracetam 750 mg 1,500 mg PO HS 11/20/18 08/24/24 History tablet,extended release 24 hr (Keppra XR) levothyroxine 88 mcg tablet 88 mcg PO DAILYBB 11/20/18 08/24/24 History nitroglycerin 0.4 mg sublingual 0.4 mg sublingual .Q 5 MINUTES PRN 11/20/18 08/24/24 History tablet (Nitrostat) Chest Pain amiodarone 200 mg tablet 200 mg PO QAM 07/01/19 08/24/24 History metoprolol succinate 100 mg 100 mg PO QAM 09/23/23 08/24/24 History tablet,extended release 24 hr losartan 50 mg tablet 50 mg PO QAM #30 tabs 09/27/23 08/24/24 Rx acetaminophen 650 mg rectal 650 mg RI Q6H PRN Fever Or Pain 08/24/24 08/24/24 History suppository atropine sulfate (PF) 1 % eye 2 drp .EVERY 1 HOUR PRN EXCESSIVE 08/24/24 08/24/24 History drops in a dropperette SECRETIONS lorazepam 2 mg/mL oral concentrate 0.5 mg PO Q4 PRN ANXIETY/AGITATION 08/24/24 08/24/24 History (Lorazepam Intensol) mirtazapine 30 mg tablet 30 mg PO QPM 08/24/24 08/24/24 History morphine concentrate 20 mg/mL oral 5 mg PO .EVERY 1 HOUR PRN 08/24/24 08/24/24 History syringe (FOR ORAL USE ONLY) PAIN/DIFFICULTY BREATHING morphine concentrate 20 mg/mL oral 5 mg PO DAILY 08/24/24 08/24/24 History syringe (FOR ORAL USE ONLY) olanzapine 2.5 mg tablet (Zyprexa) 2.5 mg PO HS 08/24/24 08/24/24 History ondansetron 4 mg disintegrating 4 mg PO Q8H PRN NAUSEA;VOMITING 08/24/24 08/24/24 History tablet polyethylene glycol 3350 17 17 g PO .EVERY 24 HOURS PRN 08/24/24 08/24/24 History gram/dose oral powder Constipation sennosides 8.6 mg tablet (senna) 17.2 mg PO HS 08/24/24 08/24/24 History Patient History Medical History (Updated 08/24/24 @ 14:38 by Tonja Swann DO) Renal cyst, left BPH (benign prostatic hyperplasia) Hypothyroidism On anticoagulant therapy warfarin daily Deep vein thrombosis 2018--left arm--unknown reason--on warfarin Hearing deficit Dementia Myocardial Infarction 11/1999--follows with Dr. Coelho Surgical History History of colonoscopy History of bilateral cataract extraction History of heart artery stent 11/1999 @ [facility] [place] History of cardiac cath x1 11/1999 Family History Other Family history non-contributory No family history of adverse response to anesthesia Social History Smoking Status: Unknown if ever smoked Second Hand Exposure: Yes (father smoked cigars); Do You Dip or Chew Tobacco: No; Hx Alcohol Use: No Hx Substance Use: No Preferred Language: Telugu Communication Ability: Impaired Answering Service Agent Required: No Beliefs That Will Affect Care: None marital status: Current Living Situation: Skilled Nursing Feels Safe at Home: Yes Assistive Devices: Walker Review of Systems Review of Systems: Other no positive ROS but pt has underling dementia so ROS and HPI is limited Physical Exam Physical Exam: aaox3, NAD NC/AT, EOMI Supple No JVD Nrl S1/S2, No murmur CTA b/l no w/r/r soft nt/nd no LE edema b/l skin intact no focal deficits left pectoral incision well healed Results & Data Vital Signs (Past 12 Hours) Vital Signs Temp Pulse Pulse Resp BP BP Pulse Ox 08/24/24 14:18 08/24/24 14:02 37.5 C 64 16 151/74 H 98 08/24/24 13:09 60 17 98 08/24/24 12:03 60 15 97 08/24/24 11:00 60 13 96 08/24/24 10:39 65 12 98 08/24/24 09:00 90 20 97 08/24/24 08:19 60 08/24/24 08:12 62 24 98 08/24/24 07:00 60 13 94 08/24/24 06:00 60 21 93 08/24/24 05:00 60 16 139/71 98 08/24/24 04:56 36.5 C 60 16 139/71 98 08/24/24 04:40 08/24/24 04:40 36.5 C 66 16 139/71 100 08/24/24 04:03 61 15 139/71 95 08/24/24 03:57 61 16 163/75 H 95 08/24/24 03:55 61 08/24/24 02:48 60 151/77 H Pulse Ox O2 Del Method O2 Del Method O2 Flow Rate 08/24/24 14:18 Nasal Cannula 2 08/24/24 14:02 Nasal Cannula 2 08/24/24 13:09 Nasal Cannula 2 08/24/24 12:03 Nasal Cannula 2 08/24/24 11:00 Nasal Cannula 2 08/24/24 10:39 Nasal Cannula 2 08/24/24 09:00 Nasal Cannula 2 08/24/24 08:19 08/24/24 08:12 08/24/24 07:00 08/24/24 06:00 08/24/24 05:00 08/24/24 04:56 Room Air 08/24/24 04:40 100 Room Air 08/24/24 04:40 Room Air 08/24/24 04:03 08/24/24 03:57 08/24/24 03:55 08/24/24 02:48 Laboratory Results Laboratory Results - last 24 hr 08/24/24 08/24/24 08/24/24 00:00 00:20 01:16 WBC 11.10 H RBC 3.47 L Hgb 11.1 L Hct 33.8 L MCV 97.4 MCH 32.0 MCHC 32.8 RDW Std Deviation 48.0 H RDW Coeff of Yuly 13.4 Plt Count 190 MPV 10.6 Immature Gran % (Auto) 0.2 Neut % (Auto) 74.8 Lymph % (Auto) 17.7 Reagan % (Auto) 5.9 Eos % (Auto) 0.9 Baso % (Auto) 0.5 Neut # (Auto) 8.32 H Lymph # (Auto) 1.96 Reagan # (Auto) 0.65 H Eos # (Auto) 0.10 Baso # (Auto) 0.05 Immature Gran # (Auto) 0.02 PT Cancelled 11.8 INR Cancelled 1.1 APTT Cancelled 24 PTT Ratio Cancelled 0.9 VBG pH VBG pCO2 VBG pO2 VBG HCO3 VBG O2 Saturation VBG Base Excess Sodium 142 Potassium TNP 3.9 Chloride 109 H Carbon Dioxide 24 Anion Gap 9 BUN 35 H Creatinine 1.36 Est Cr Clr Drug Dosing 41.6 eGFR 49.74 BUN/Creatinine Ratio 25.7 H Glucose 113 H Calcium 8.8 Magnesium 2.0 Total Bilirubin 0.5 AST TNP 16 ALT 12 Alkaline Phosphatase 75 Total Protein 6.7 Albumin 3.6 Globulin 3.1 Albumin/Globulin Ratio 1.2 TSH 16.113 H Free T4 1.01 Urine Color Yellow Urine Appearance Clear Urine pH 7.5 Ur Specific [place] 1.016 Urine Protein Trace H Urine Glucose (UA) Negative Urine Ketones Negative Urine Blood Negative Urine Nitrite Negative Urine Bilirubin Negative Urine Urobilinogen Negative Ur Leukocyte Esterase Negative Urine WBC (Auto) 0-5 Urine RBC (Auto) 0-2 U Hyaline Cast (Auto) 0-2 U Epithel Cells (Auto) 0-2 Urine Bacteria (Auto) None Seen Nasal Screen MRSA (PCR) Adenovirus (PCR) B. pertussis DNA (PCR) B.parapertussis DNA PCR C. pneumoniae DNA (PCR) Coronavirus OC43 (PCR) Coronavirus HKU1 (PCR) Coronavirus 229E (PCR) SARS-CoV-2 (PCR) Coronavirus NL63 (PCR) Human Metapneumovir PCR Influenza Type A (PCR) Influenza Type B (PCR) M. pneumoniae (PCR) Parainfluenza 1 (PCR) Parainfluenza 2 (PCR) Parainfluenza 3 (PCR) Parainfluenza 4 (PCR) RSV (PCR) Entero/Rhino (PCR) Blood Type Antibody Screen 08/24/24 08/24/24 08/24/24 04:53 06:08 06:12 WBC RBC Hgb 9.6 L Hct 28.7 L MCV MCH MCHC RDW Std Deviation RDW Coeff of Yuly Plt Count MPV Immature Gran % (Auto) Neut % (Auto) Lymph % (Auto) Reagan % (Auto) Eos % (Auto) Baso % (Auto) Neut # (Auto) Lymph # (Auto) Reagan # (Auto) Eos # (Auto) Baso # (Auto) Immature Gran # (Auto) PT INR APTT PTT Ratio VBG pH 7.41 VBG pCO2 37 L VBG pO2 58 VBG HCO3 24 VBG O2 Saturation 89.2 VBG Base Excess -0.8 Sodium Potassium Chloride Carbon Dioxide Anion Gap BUN Creatinine Est Cr Clr Drug Dosing eGFR BUN/Creatinine Ratio Glucose Calcium Magnesium Total Bilirubin AST ALT Alkaline Phosphatase Total Protein Albumin Globulin Albumin/Globulin Ratio TSH Free T4 Urine Color Urine Appearance Urine pH Ur Specific [place] Urine Protein Urine Glucose (UA) Urine Ketones Urine Blood Urine Nitrite Urine Bilirubin Urine Urobilinogen Ur Leukocyte Esterase Urine WBC (Auto) Urine RBC (Auto) U Hyaline Cast (Auto) U Epithel Cells (Auto) Urine Bacteria (Auto) Nasal Screen MRSA (PCR) Negative Adenovirus (PCR) Not Detected B. pertussis DNA (PCR) Not Detected B.parapertussis DNA PCR Not Detected C. pneumoniae DNA (PCR) Not Detected Coronavirus OC43 (PCR) Not Detected Coronavirus HKU1 (PCR) Not Detected Coronavirus 229E (PCR) Not Detected SARS-CoV-2 (PCR) Not Detected Coronavirus NL63 (PCR) Not Detected Human Metapneumovir PCR Not Detected Influenza Type A (PCR) Not Detected Influenza Type B (PCR) Not Detected M. pneumoniae (PCR) Not Detected Parainfluenza 1 (PCR) Not Detected Parainfluenza 2 (PCR) Not Detected Parainfluenza 3 (PCR) Not Detected Parainfluenza 4 (PCR) Not Detected RSV (PCR) Not Detected Entero/Rhino (PCR) Not Detected Blood Type A Positive Antibody Screen NEGATIVE Diagnostic Findings CXR: No acute cardio-pulmonary pathology Medications Administered Home Medications Medication Instructions Recorded Confirmed Type finasteride 5 mg tablet (Proscar) 5 mg PO QAM 11/20/18 08/24/24 History levetiracetam 500 mg 500 mg PO HS 11/20/18 08/24/24 History tablet,extended release 24 hr (Keppra XR) levetiracetam 750 mg 1,500 mg PO HS 11/20/18 08/24/24 History tablet,extended release 24 hr (Keppra XR) levothyroxine 88 mcg tablet 88 mcg PO DAILYBB 11/20/18 08/24/24 History nitroglycerin 0.4 mg sublingual 0.4 mg sublingual .Q 5 MINUTES PRN 11/20/18 08/24/24 History tablet (Nitrostat) Chest Pain amiodarone 200 mg tablet 200 mg PO QAM 07/01/19 08/24/24 History metoprolol succinate 100 mg 100 mg PO QAM 09/23/23 08/24/24 History tablet,extended release 24 hr acetaminophen 650 mg rectal 650 mg RI Q6H PRN Fever Or Pain 08/24/24 08/24/24 History suppository atropine sulfate (PF) 1 % eye 2 drp .EVERY 1 HOUR PRN EXCESSIVE 08/24/24 08/24/24 History drops in a dropperette SECRETIONS lorazepam 2 mg/mL oral concentrate 0.5 mg PO Q4 PRN ANXIETY/AGITATION 08/24/24 08/24/24 History (Lorazepam Intensol) mirtazapine 30 mg tablet 30 mg PO QPM 08/24/24 08/24/24 History morphine concentrate 20 mg/mL oral 5 mg PO .EVERY 1 HOUR PRN 08/24/24 08/24/24 History syringe (FOR ORAL USE ONLY) PAIN/DIFFICULTY BREATHING morphine concentrate 20 mg/mL oral 5 mg PO DAILY 08/24/24 08/24/24 History syringe (FOR ORAL USE ONLY) olanzapine 2.5 mg tablet (Zyprexa) 2.5 mg PO HS 08/24/24 08/24/24 History ondansetron 4 mg disintegrating 4 mg PO Q8H PRN NAUSEA;VOMITING 08/24/24 08/24/24 History tablet polyethylene glycol 3350 17 17 g PO .EVERY 24 HOURS PRN 08/24/24 08/24/24 History gram/dose oral powder Constipation sennosides 8.6 mg tablet (senna) 17.2 mg PO HS 08/24/24 08/24/24 History Current Inpatient Medications Acetaminophen (Acetaminophen 500 Mg Tab) 500 mg PO Q6H PRN PRN Reason: fever/pain Stop: 09/23/24 05:14 Amiodarone HCl (Amiodarone 200 Mg Tab) 100 mg PO [facility] Stop: 09/23/24 08:59 Last Admin: 08/24/24 08:49 Dose: 100 mg Bisacodyl (Bisacodyl 10 Mg Supp) 10 mg RI DAILY PRN PRN Reason: Constipation Stop: 09/23/24 02:05 Finasteride ([facility]aster[facility] 5 Mg Tab) [facility] [place] Stop: 09/23/24 08:59 Last Admin: 08/24/24 08:49 Dose: 5 mg Promethazine HCl (Phenergan) 6.25 mg in 50.25 mls @ 201 mls/hr IV Q6H PRN PRN Reason: Nausea And Vomiting Stop: 09/23/24 02:04 Lactated Ringer's (Lr) 1,000 mls @ 50 mls/hr IV .Q20H ONE Stop: 08/24/24 23:14 Last Admin: 08/24/24 04:47 Dose: 50 mls/hr Levothyroxine Sodium (Levothyroxine Sodium 100 Mcg Tablet) 100 mcg PO DAILYBB [facility] Stop: 09/23/24 06:29 Last Admin: 08/24/24 08:50 Dose: 100 mcg Losartan Potassium (Losartan Potassium 50 Mg Tab) 50 mg PO QAM [facility] Stop: 09/23/24 08:59 Last Admin: 08/24/24 08:49 Dose: 50 mg Metoprolol Succinate (Metoprolol Succ 50mg Ext Rel Tab) 100 mg PO QAM [facility] Stop: 09/23/24 08:59 Last Admin: 08/24/24 08:50 Dose: 100 mg Mirtazapine (Mirtazapine Tab 15 Mg Tab) 30 mg PO QPM [facility] Stop: 09/23/24 20:59 Morphine Sulfate (Morphine Sulfate 2 Mg/Ml Carp) 2 mg IV Q3H PRN PRN Reason: Pain Stop: 09/07/24 02:04 Last Admin: 08/24/24 14:11 Dose: 2 mg Morphine Sulfate (Morphine Sulfate 10 Mg/0.5 Ml Udp) 5 mg PO DAILY [facility] Stop: 09/07/24 08:59 Last Admin: 08/24/24 10:20 Dose: Not Given Naloxone HCl (Naloxone Hcl 0.4 Mg/1 Ml Vial/Carp) 0.1 mg IV UD PRN PRN Reason: Opiate Overdose Stop: 09/23/24 02:05 Levetiracetam Er [id number] Patient's Own Med 1 each PO HS VERONIKA Stop: 09/23/24 20:59 Levetiracetam Er 750mg--Non-Formulary Patient's Own Med 2 each PO HS [facility] Stop: 09/23/24 20:59 Olanzapine (Olanzapine 10 Mg/2.1 Ml Sdv) 2.5 mg IM Q4H PRN PRN Reason: Agitation Stop: 09/23/24 01:06 Olanzapine (Olanzapine 2.5 Mg Tab) 2.5 mg PO HS VERONIKA Stop: 09/23/24 20:59 Oxycodone HCl (Oxycodone Hcl Ir 5 Mg Tab (Immediate Release)) 5 mg PO Q4H PRN PRN Reason: Pain Stop: 09/07/24 02:04 Polyethylene Glycol (Polyethylene (Miralax) 17 Gm Pack) 17 gm PO Q24H PRN PRN Reason: Constipation Stop: 09/23/24 03:10 Sennosides (Senna 8.6 Mg Tab) 17.2 mg PO HS [facility]ONIKA Stop: 09/23/24 20:59 ECG Additional Comments: AV paced 78bpm (2) Alzheimer's dementia Alzheimer's disease onset: unspecified onset
[2024-08-24] MEDS: MIRTAZAPINE TAB 15 MG TAB PO SCH (19:50)
[2024-08-24] MEDS: OLANZAPINE 2.5 MG TAB PO SCH (19:50)
[2024-08-24] MEDS: LEVETIRACETAM 500 MG PO SCH (19:51)
[2024-08-24] MEDS: LEVETIRACETAM 750 MG PO SCH (19:51)
[2024-08-24] MEDS: SENNA 8.6 MG TAB PO SCH (20:02)
--- NOTE | 2024-08-24 20:43 | Orthopedic Progress Note ---
Date of Service August 24, 2024 Assessment & Plan (1) PAF (paroxysmal atrial fibrillation): (2) Asymptomatic hypertensive urgency: (3) Fracture of hip, right, closed: (4) Alzheimer's dementia: (5) CHF (congestive heart failure): (6) Elevated troponin: (7) Syncope and collapse: (8) Fracture of right distal radius: Plan This is an 89-year-old gentleman who fell in his memory care facility and sustained a closed, traumatic, displaced right intertrochanteric hip fracture. The patients and I had chatted earlier this evening and she wanted to speak with the patients daughter as well as the junior assistant manager about his care before making a decision with regards to management for his right hip. Since we had spoke earlier, the patient was evaluated by cardiology and cleared for operative intervention I once again explained to the patient's that this fracture represents an unstable injury, and as such, in most patients, we recommend operative intervention to include open versus closed reduction and internal fixation. I did explain to the patient's that often times hip fractures are a harbinger of worse things to come, meaning that this oftentimes signifies the beginning of the end. We discussed this in great detail and in plain terms. For historical reference, the patients informed me that he recently discontinued anticoagulation for his atrial fibrillation and discontinued routine pacemaker battery exchange - she notes that his heart has been previosuly very dependent on this pacemaker. 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 He is also a DNR/DNI. She and the patient's daughter both know that the end of Isabela's life is close, but they are unsure of how they wish to proceed with regards to his right hip fracture. I explained to the patient's that all operative interventions carry with them inherent risk, and considering the patient's fragile medical state as well as his age, he is at a much higher risk than most for complication from surgery. With regards to the surgery itself, there are risks that include but are not limited to loss of life/limb, DVT, incomplete relief of pain, need for additional surgery, infection, nonunion, malunion, hardware complication, hardware failure, hardware irritation, iatrogenic injury to bone/nerve/tendon/vessel, decrease in ambulatory status, blood loss anemia requiring transfusion or blood pressure support.I also explained that with nonoperative care there are significant risks, as well. The risks of nonoperative care include but are not limited to complications of immobility such as DVT/sacral decubitus ulcers/pneumonia/deconditioning. we discussed in great detail both management strategies. if the family does indeed elect to proceed with operative intervention, he would most likely be permitted to bear weight as tolerated. with non operative care we will attempt to mobilize the patient as much as possible and make his as comfortable as possible, but I stated that i suspect he will be in significant pain and likely would be mostly immobile for at least 6 weeks. At this time, the patients family would like to continue to weigh their options and they would like the evening to think about their options. I did explain to them that studies have demonstrated increased mortality following hip fractures if surgery is delayed greater than 48 hours. The pandaen t's family informed me they would have a final decision tomorrow. In case they do decide to proceed with surgical intervention, we will keep the patient NPO after midnight. I will check back in with them tomorrow morning Additionally, on imaging review, the patient does appear to have sustained a nondisplaced distal radius fracture. considering his medical state, my recommendation is for nonoperative management of this injury in a wrist brace. the patient's family are agreeable to the plan.. Admission and Anticipated Discharge Date Admission Date: August 24, 2024 Subjective patient was evaluated by the junior assistant manager and has been cleared for surgery. Results & Data Vital Signs (Past 12 Hours) Vital Signs Temp Pulse Pulse Pulse Resp BP Pulse Ox 08/24/24 19:33 37.7 C H 75 18 147/74 H 96 08/24/24 16:03 60 08/24/24 14:18 08/24/24 14:02 37.5 C 64 16 151/74 H 98 08/24/24 13:09 60 17 98 08/24/24 12:03 60 15 97 08/24/24 11:00 60 13 96 08/24/24 10:39 65 12 98 08/24/24 09:00 90 20 97 O2 Del Method O2 Flow Rate 08/24/24 19:33 Room Air 08/24/24 16:03 08/24/24 14:18 Nasal Cannula 2 08/24/24 14:02 Nasal Cannula 2 08/24/24 13:09 Nasal Cannula 2 08/24/24 12:03 Nasal Cannula 2 08/24/24 11:00 Nasal Cannula 2 08/24/24 10:39 Nasal Cannula 2 08/24/24 09:00 Nasal Cannula 2 (4) Alzheimer's dementia Alzheimer's disease onset: unspecified onset (5) CHF (congestive heart failure) Heart failure type: unspecified Heart failure chronicity: chronic Qualified Code(s): I50.9 - Heart failure, unspecified
[2024-08-24] MEDS ORDERED: LEVETIRACETAM 750 MG EXT SCH (21:00)
--- NOTE | 2024-08-25 07:52 | Cardiology Progress Note ---
Date of Service August 25, 2024 Assessment & Plan Plan s/p ppm pt is AV paced so his device has not flipped to RAFY and is still has normal function should pt go to the OR for orthopedic surgery no ppm interrogation is necessary as I want to conserve the battery longevity. Admission and Anticipated Discharge Date Admission Date: August 24, 2024 Review of Systems Review of Systems: All systems reviewed & are unremarkable except as noted in HPI & below Results & Data Vital Signs (Past 12 Hours) Vital Signs Temp Pulse Pulse Resp BP Pulse Ox O2 Del Method 08/25/24 07:10 63 08/25/24 05:08 36.7 C 80 18 149/74 H 95 Room Air 08/25/24 04:05 36.7 C 80 20 149/74 H 95 Room Air 08/24/24 23:59 60 08/24/24 23:00 Nasal Cannula 08/24/24 22:55 37.7 C H 64 18 156/75 H 94 Room Air O2 Flow Rate 08/25/24 07:10 08/25/24 05:08 08/25/24 04:05 08/24/24 23:59 08/24/24 23:00 2 08/24/24 22:55 Laboratory Results Intake and Output 08/24/24 08/25/24 08/25/24 22:59 06:59 14:59 Intake Total 1000 / 1000 Output Total 300 / 300 250 / 250 Balance -300 / 700 1000 / 700 -250 / -250 Intake: IV 1000 / 1000 Lactated Ringer's 1,000 ml @ 50 1000 / 1000 mls/hr IV .Q20H ONE Rx#: [id number] Output: Urine Amount (Catheter) 300 / 300 250 / 250 Sheppard/Indwelling 300 / 300 250 / 250 Other: Other Intake Source sips Medications Administered Current Inpatient Medications Acetaminophen (Acetaminophen 500 Mg Tab) 500 mg PO Q6H PRN PRN Reason: fever/pain Stop: 09/23/24 05:14 Amiodarone HCl (Amiodarone 200 Mg Tab) 100 mg PO QAM VERONIKA Stop: 09/23/24 08:59 Last Admin: 08/25/24 07:47 Dose: Not Given Bisacodyl (Bisacodyl 10 Mg Supp) 10 mg NV DAILY PRN PRN Reason: Constipation Stop: 09/23/24 02:05 Finasteride (Finasteride 5 Mg Tab) 5 mg PO QAM [facility] Stop: 09/23/24 08:59 Last Admin: 08/25/24 07:47 Dose: Not Given Promethazine HCl (Phenergan) 6.25 mg in 50.25 mls @ 201 mls/hr IV Q6H PRN PRN Reason: Nausea And Vomiting Stop: 09/23/24 02:04 Levothyroxine Sodium (Levothyroxine Sodium 100 Mcg Tablet) 100 mcg PO DAILYBB [facility] Stop: 09/23/24 06:29 Last Admin: 08/25/24 05:10 Dose: Not Given Losartan Potassium (Losartan Potassium 50 Mg Tab) 50 mg PO QAM [facility] Stop: 09/23/24 08:59 Last Admin: 08/25/24 07:47 Dose: Not Given Metoprolol Succinate (Metoprolol Succ 50mg Ext Rel Tab) 100 mg PO QAM [facility] Stop: 09/23/24 08:59 Last Admin: 08/25/24 07:47 Dose: Not Given Mirtazapine (Mirtazapine Tab 15 Mg Tab) 30 mg PO QPM [facility] Stop: 09/23/24 20:59 Last Admin: 08/24/24 19:50 Dose: 30 mg Morphine Sulfate (Morphine Sulfate 2 Mg/Ml Carp) 2 mg IV Q3H PRN PRN Reason: Pain Stop: 09/07/24 02:04 Last Admin: 08/25/24 02:34 Dose: 2 mg Morphine Sulfate (Morphine Sulfate 10 Mg/0.5 Ml Udp) 5 mg PO DAILY [facility] Stop: 09/07/24 08:59 Last Admin: 08/25/24 07:47 Dose: Not Given Naloxone HCl (Naloxone Hcl 0.4 Mg/1 Ml Vial/Carp) 0.1 mg IV UD PRN PRN Reason: Opiate Overdose Stop: 09/23/24 02:05 Levetiracetam Er [id number] Patient's Own Med 1 each PO HS VERONIKA Stop: 09/23/24 20:59 Last Admin: 08/24/24 19:51 Dose: 1 tab Levetiracetam Er 750mg--Non-Formulary Patient's Own Med 2 each PO HS [facility]ON[facility]A Stop: 09/23/24 20:59 Last Admin: 08/24/24 19:51 Dose: 2 tab Olanzapine (Olanzapine 10 Mg/2.1 Ml Sdv) 2.5 mg IM Q4H PRN PRN Reason: Agitation Stop: 09/23/24 01:06 Olanzapine (Olanzapine 2.5 Mg Tab) 2.5 mg PO HS [facility]A Stop: 09/23/24 20:59 Last Admin: 08/24/24 19:50 Dose: 2.5 mg Oxycodone HCl (Oxycodone Hcl Ir 5 Mg Tab (Immediate Release)) 5 mg PO Q4H PRN PRN Reason: Pain Stop: 09/07/24 02:04 Polyethylene Glycol (Polyethylene (Miralax) 17 Gm Pack) 17 gm PO Q24H PRN PRN Reason: Constipation Stop: 09/23/24 03:10 Sennosides (Senna 8.6 Mg Tab) 17.2 mg PO [facility] Stop: 09/23/24 20:59 Last Admin: 08/24/24 20:02 Dose: 17.2 mg
--- NOTE | 2024-08-25 08:21 | Orthopedic Progress Note ---
Date of Service August 25, 2024 Assessment & Plan (1) Intertrochanteric fracture of right hip: (2) Fracture of right distal radius: (3) PAF (paroxysmal atrial fibrillation): (4) Asymptomatic hypertensive urgency: (5) Alzheimer's dementia: (6) CHF (congestive heart failure): (7) Elevated troponin: (8) Syncope and collapse: Plan This is an 89-year-old gentleman who fell in his memory care facility and sustained a closed, traumatic, displaced right intertrochanteric hip fracture. The patient was evaluated by cardiology and medicine and cleared for operative intervention I once again explained to the patient's that this fracture represents an unstable injury, and as such, in most patients, we recommend operative intervention to include open versus closed reduction and internal fixation. I did explain to the patient's that often times hip fractures are a harbinger of worse things to come, meaning that this oftentimes signifies the beginning of the end of a patient's life. We discussed this in great detail and in plain terms. For historical reference, the patients informed me that he recently discontinued anticoagulation for his atrial fibrillation and discontinued routine pacemaker battery exchange - she notes that his heart has been p reviosuly very dependent on this pacemaker. 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 He is also a DNR/DNI. She and the patient's daughter both know that the end of Isabela's life is close. I explained to the patient's and daughter that all operative interventions carry with them inherent risk, and considering the patient's fragile medical state as well as his age, he is at a much higher risk than most for complication from surgery. With regards to the surgery itself, there are risks that include but are not limited to loss of life/limb, DVT, incomplete relief of pain, need for additional surgery, infection, nonunion, malunion, hardware complication, hardware failure, hardware irritation, iatrogenic injury to bone/nerve/tendon/vessel, decrease in ambulatory status, blood loss anemia requiring transfusion or blood pressure support.I also explained that with nonoperative care there are significant risks, as well. The risks of nonoperative care include but are not limited to complications of immobility such as DVT/sacral decubitus ulcers/pneumonia/deconditioning. We discussed in great detail both management strategies. if the family does indeed elect to proceed with operative intervention, he would most likely be permitted to bear weight as tolerated. with non operative care we will attempt to mobilize the patient as much as possible and make his as comfortable as possible, but I stated that i suspect he will be in significant pain and likely would be mostly immobile for at least 6 weeks. After taking the evening to think about their options, the patient's family has opted for operative management. We will plan to proceed to the OR today pending or availability. All of their questions were answered to their satisfaction. No promises or guarantees were stated or implied. Patient has been n.p.o. since midnight. Additionally, on imaging review, the patient does appear to have sustained a nondisplaced distal radius fracture. considering his medical state, my recommendation is for nonoperative management of this injury in a wrist brace. the patient's family are agreeable to the plan. Admission and Anticipated Discharge Date Admission Date: August 24, 2024 Subjective Patient's family discussed their options last evening and opted to proceed with surgery. He has been n.p.o. since midnight. Review of Systems Review of Systems: Unobtainable due to cognitive status Physical Exam Physical Exam: Patient's right lower extremity is shortened and externally rotated. He is tender to palpation about his right hip. He has obvious pain with logroll or heel strike. No open wounds appreciated. Patient demonstrates the ability to wiggle his toes. Does not follow commands enough for detailed neurologic exam. Results & Data Vital Signs (Past 12 Hours) Vital Signs Temp Pulse Pulse Resp BP Pulse Ox O2 Del Method 08/25/24 07:57 70 08/25/24 07:54 37.3 C 16 159/88 H 95 Room Air 08/25/24 07:10 63 08/25/24 05:08 36.7 C 80 18 149/74 H 95 Room Air 08/25/24 04:05 36.7 C 80 20 149/74 H 95 Room Air 08/24/24 23:59 60 08/24/24 23:00 Nasal Cannula 08/24/24 22:55 37.7 C H 64 18 156/75 H 94 Room Air O2 Flow Rate 08/25/24 07:57 08/25/24 07:54 08/25/24 07:10 08/25/24 05:08 12/02/24 04:05 08/24/24 23:59 08/24/24 23:00 2 08/24/24 22:55 (5) Alzheimer's dementia Alzheimer's disease onset: unspecified onset (6) CHF (congestive heart failure) Heart failure type: unspecified Heart failure chronicity: chronic Qualified Code(s): I50.9 - Heart failure, unspecified
[2024-08-25 09:07] LABS: Hematocrit (blood only) 29.2 % (42.0-52.0); Hemoglobin 9.7 g/dl (14.0-18.0); Mean Corpuscular Hemoglobin 32.9 pg (25.0-34.0); Mean Corpuscular Hgb Conc 33.2 g/dL (32.0-36.0); Mean Platelet Volume 11.3 fL (9.4-12.4); Platelet Count 146 K/uL (130-400); RDW Standard Deviation 50.6 fL (36.4-46.3); Red Blood Count 2.95 M/uL (4.70-6.10); White Blood Count 9.76 K/ul (4.8-10.8)
[2024-08-25 09:23] LABS: BUN Creatinine Ratio 22.7 (10-20); Calcium 8.4 mg/dl (8.6-10.3); Creatinine Clr Calc Pharmacy 47.6 ml/min; Phosphorus 2.4 mg/dl (2.5-4.9); Potassium 3.4 mmol/L (3.5-5.1)
[2024-08-25] MEDS ORDERED: BUPIVACAINE 0.5 % 5 MG/1 ML PF 10ML VIAL ONE (11:25)
[2024-08-25] MEDS ORDERED: KETAMINE HCL 10MG/ML SYR ONE (11:36)
[2024-08-25] MEDS ORDERED: PHENYLEPHRINE HCL 10 MG/ML VIAL ONE (11:37)
[2024-08-25] MEDS ORDERED: PROPOFOL IV EMULSION 10 MG/ML 20 ML VIAL IV ONE ×2 (11:37→14:44)
--- NOTE | 2024-08-25 12:00 | Anesthesiology Consultation ---
Date of Service August 25, 2024 Assessment & Plan Chart Review Chart Review: Acceptable Risk for Surgery Consults Requested none Long discussion with family regarding code status. Patient is currently DNR/DNI. Family is okay to suspect the DNI during the perioperative period. They are okay with chemical treatment of arrhythmia or hemodynamic instability but feel stronglky patient would not want CPR or electrical treatment. Patient has pacemaker with dying battery that hasn't been replaced due to his DNR wishes. Otherwise, his last TTE showed adequate LV function. Will proceed with spinal and MAC. ASA4. ASA ASA4 Proposed Anesthesia Anesthesia Type: General and MAC Spinal Risk / Benefits Reviewed With: PT / POA / Parent / Guardian, Accepts Plan and Informed Consent Obtained History Surgery Operation Date: 08/24/24 15:00 Proposed Procedures p Intramedullary Florentin Femur(Right) - Jarad Norton DO Operation Date: 08/25/24 08:20 Proposed Procedures p Right Troch Nail - Jarad Norton DO Height/Weight Height: 6 ft 1 in Weight: 82.7 kg Allergies Allergy/AdvReac Type Severity Reaction Status Date / Time Iodinated Contrast Media Allergy Severe trouble Verified 08/24/24 01:31 breathing/hives Medications Home Medications Medication Instructions Recorded Confirmed Last Taken finasteride 5 mg tablet (Proscar) 5 mg PO QAM 11/20/18 08/24/24 03/14/24 levetiracetam 500 mg 500 mg PO HS 11/20/18 08/24/24 03/13/24 tablet,extended release 24 hr (Keppra XR) levetiracetam 750 mg 1,500 mg PO HS 11/20/18 08/24/24 03/13/24 tablet,extended release 24 hr (Keppra XR) levothyroxine 88 mcg tablet 88 mcg PO DAILYBB 11/20/18 08/24/24 03/14/24 nitroglycerin 0.4 mg sublingual 0.4 mg sublingual .Q 5 MINUTES PRN 11/20/18 08/24/24 Unknown tablet (Nitrostat) Chest Pain amiodarone 200 mg tablet 200 mg PO QAM 07/01/19 08/24/24 03/14/24 metoprolol succinate 100 mg 100 mg PO QAM 12/31/23 12/01/24 06/21/24 tablet,extended release 24 hr losartan 50 mg tablet 50 mg PO QAM #30 tabs 09/27/23 08/24/24 03/14/24 acetaminophen 650 mg rectal 650 mg ID Q6H PRN Fever Or Pain 08/24/24 08/24/24 Unknown suppository atropine sulfate (PF) 1 % eye 2 drp .EVERY 1 HOUR PRN EXCESSIVE 08/24/24 08/24/24 Unknown drops in a dropperette SECRETIONS lorazepam 2 mg/mL oral concentrate 0.5 mg PO Q4 PRN ANXIETY/AGITATION 08/24/24 08/24/24 Unknown (Lorazepam Intensol) mirtazapine 30 mg tablet 30 mg PO QPM 08/24/24 08/24/24 Unknown morphine concentrate 20 mg/mL oral 5 mg PO .EVERY 1 HOUR PRN 08/24/24 08/24/24 Unknown syringe (FOR ORAL USE ONLY) PAIN/DIFFICULTY BREATHING morphine concentrate 20 mg/mL oral 5 mg PO DAILY 08/24/24 08/24/24 Unknown syringe (FOR ORAL USE ONLY) olanzapine 2.5 mg tablet (Zyprexa) 2.5 mg PO HS 08/24/24 08/24/24 Unknown ondansetron 4 mg disintegrating 4 mg PO Q8H PRN NAUSEA;VOMITING 08/24/24 08/24/24 Unknown tablet polyethylene glycol 3350 17 17 g PO .EVERY 24 HOURS PRN 08/24/24 08/24/24 Unknown gram/dose oral powder Constipation sennosides 8.6 mg tablet (senna) 17.2 mg PO HS 08/24/24 08/24/24 Unknown Active Medications Generic Name Dose Route Start Last Admin Trade Name Freq PRN Reason Stop Dose Admin Amiodarone HCl 100 mg 08/24/24 09:00 08/25/24 07:47 Amiodarone 200 Mg Tab PO 09/23/24 08:59 Not Given QAM VERONIKA Finasteride 5 mg 08/24/24 09:00 08/25/24 07:47 Finasteride 5 Mg Tab PO 09/23/24 08:59 Not Given QAM VERONIKA Levothyroxine Sodium 100 mcg 08/24/24 06:30 08/25/24 05:10 Levothyroxine Sodium 100 Mcg Tablet PO 09/23/24 06:29 Not Given DAILYBB VERONIKA Losartan Potassium 50 mg 08/24/24 09:00 08/25/24 07:47 Losartan Potassium 50 Mg Tab PO 09/23/24 08:59 Not Given QAM VERONIKA Metoprolol Succinate 100 mg 08/24/24 09:00 08/25/24 07:47 Metoprolol Succ 50mg Ext Rel Tab PO 09/23/24 08:59 Not Given QAM VERONIKA Mirtazapine 30 mg 08/24/24 21:00 08/24/24 19:50 Mirtazapine Tab 15 Mg Tab PO 09/23/24 20:59 30 mg QPM VERONIKA Administration Morphine Sulfate 2 mg 08/24/24 02:05 08/25/24 02:34 Morphine Sulfate 2 Mg/Ml Carp IV 09/07/24 02:04 2 mg Q3H PRN Administration Pain Morphine Sulfate 5 mg 08/24/24 09:00 08/25/24 07:47 Morphine Sulfate 10 Mg/0.5 Ml Udp PO 09/07/24 08:59 Not Given DAILY VERONIKA Levetiracetam Er 1 each 08/24/24 21:00 08/24/24 19:51 [id number] PO 09/23/24 20:59 1 tab Patient's Own Med HS VERONIKA Administration Levetiracetam Er 2 each 08/24/24 21:00 08/24/24 19:51 750mg--Non-Formulary PO 09/23/24 20:59 2 tab Patient's Own Med HS VERONIKA Administration Olanzapine 2.5 mg 08/24/24 21:00 08/24/24 19:50 Olanzapine 2.5 Mg Tab PO 09/23/24 20:59 2.5 mg HS VERONIKA Administration Sennosides 17.2 mg 08/24/24 21:00 08/24/24 20:02 Senna 8.6 Mg Tab PO 09/23/24 20:59 17.2 mg HS VERONIKA Administration NPO Date Last Intake of Fluids: 08/24/24 Date Last Intake of Solids: 08/24/24 Past Medical History Medical History Renal cyst, left BPH (benign prostatic hyperplasia) Hypothyroidism On anticoagulant therapy warfarin daily Deep vein thrombosis 2018--left arm--unknown reason--on warfarin Hearing deficit Dementia Myocardial Infarction 11/1999--follows with Dr. Coelho Exercise / Class Metabolic Activity IV < 2 Limit ADL/Bedbound Past Family History Family History Other Family history non-contributory No family history of adverse response to anesthesia Past Surgical History Surgical History History of colonoscopy History of bilateral cataract extraction History of heart artery stent [place] [facility] [place] of cardiac cath x1 11/1999 Past Anesthesia History No Hx of Anesthesia Complications and No Family Hx of Anesthesia Complications History of PONV No Hx of PONV and No Hx of Motion Sickness Social History Smoking Status: Unknown if ever smoked Do You Dip or Chew Tobacco: No Hx Alcohol Use: No Alcohol type: beer alcohol intake frequency: other Hx Substance Use: No substance use type: does not use Review of Systems ROS Unobtainable: All systems reviewed & are unremarkable except as noted in HPI & below Physical Exam Vital Signs Last Vital Signs Temp 37.0 C 08/25/24 12:07 Pulse 69 08/25/24 12:07 Resp 20 08/25/24 12:07 BP 170/87 H 08/25/24 12:07 Pulse Ox 95 08/25/24 12:07 O2 Del Method Room Air 08/25/24 12:07 O2 Flow Rate 2 08/24/24 23:00 ENMT Mouth: no TMJ abnormality Thyromental Distance: > or= 3.5 Finger Breadths Mallampati Class: II Neck normal visual inspection and trachea midline; neck extension not limited Respiratory normal respiratory effort Auscultation: lungs clear to auscultation bilaterally Cardiovascular Rate/Rhythm: regular rate and regular rhythm Heart Sounds: no murmur Musculoskeletal Spine: normal cervical ROM Extremities: full ROM of extremities Neurologic moves all extremities Psychiatric Orientation: alert and oriented x 3 Testing Laboratory Results 08/25/24 08:17 08/25/24 08:17 PT 11.8 Seconds (9.0-12.0) 08/24/24 01:16 INR 1.1 (0.9-1.1) 08/24/24 01:16 APTT 24 Seconds (21-31) 08/24/24 01:16 Urine Color Yellow 08/24/24 00:20 Urine Appearance Clear (Clear) 08/24/24 00:20 Urine pH 7.5 (4.5-7.5) 08/24/24 00:20 Ur Specific [place] 1.016 (1.000-1.030) 08/24/24 00:20 Urine Protein Trace (Negative) H 08/24/24 00:20 Urine Glucose (UA) Negative (Negative) 08/24/24 00:20 Urine Ketones Negative (Negative) 08/24/24 00:20 Urine Nitrite Negative (Negative) 08/24/24 00:20 Ur Leukocyte Esterase Negative (Negative) 08/24/24 00:20 Urine WBC (Auto) 0-5 /hpf (0-5) 08/24/24 00:20 Urine RBC (Auto) 0-2 /hpf (0-2) 08/24/24 00:20 U Hyaline Cast (Auto) 0-2 /lpf (0-2) 08/24/24 00:20 U Epithel Cells (Auto) 0-2 /hpf (0-2) 08/24/24 00:20 Urine Bacteria (Auto) None Seen (None Seen) 08/24/24 00:20 Blood Type A Positive 08/24/24 06:08 Antibody Screen NEGATIVE 08/24/24 06:08 Electrocardiogram Date: 08/23/24 V dual-paced rhythm with occasional ventricular-paced complexes Abnormal ECG When compared with ECG of 14-Mar-2024 17:48, Vent. rate has increased by 17 bpm Echocardiogram Date: 09/25/23 EF: 50-55 LV Function: normal
[2024-08-25] MEDS ORDERED: ePHEDrine sulfate 50 MG/ML AMP IV PRN (12:03)
[2024-08-25] MEDS ORDERED: ATROPINE SULFATE 0.1 MG/ML 10ML SYR IV PRN (12:03)
[2024-08-25] MEDS ORDERED: ONDANSETRON INJ 2 MG/ML 2 ML VIAL IV PRN (12:03)
[2024-08-25] MEDS ORDERED: fentaNYL citrate PF 100 MCG/2 ML VIAL IV PRN (12:03)
--- NOTE | 2024-08-25 12:07 | History & Physical Bridge Note ---
Date of Service August 25, 2024 History & Physical Bridge Note I have examined the patient, reviewed the History & Physical and in the interval since the performance of the History & Physical I have noted the following changes of clinical significance: This is an 89-year-old gentleman who fell in his memory care facility and sustained a closed, traumatic, displaced right intertrochanteric hip fracture. The patient was evaluated by cardiology and medicine and cleared for operative intervention I once again explained to the patient's that this fracture represents an unstable injury, and as such, in most patients, we recommend operative intervention to include open versus closed reduction and internal fixation. I did explain to the patient's that often times hip fractures are a harbinger of worse things to come, meaning that this oftentimes signifies the beginning of the end of a patient's life. We discussed this in great detail and in plain terms. For historical reference, the patients informed me that he recently discontinued anticoagulation for his atrial fibrillation and discontinued routine pacemaker battery exchange - she notes that his heart has been previosuly very dependent on this pacemaker. 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 He is also a DNR/DNI. She and the patient's daughter both know that the end of Isabela's life is close. I explained to the patient's and daughter that all operative interventions carry with them inherent risk, and considering the patient's fragile medical state as well as his age, he is at a much higher risk than most for complication from surgery. With regards to the surgery itself, there are risks that include but are not limited to loss of life/limb, DVT, incomplete relief of pain, need for additional surgery, infection, nonunion, malunion, hardware complication, hardware failure, hardware irritation, iatrogenic injury to bone/nerve/tendon/vessel, decrease in ambulatory status, blood loss anemia requiring transfusion or blood pressure support.I also explained that with nonoperative care there are significant risks, as well. The risks of nonoperative care include but are not limited to complications of immobility such as DVT/sacral decubitus ulcers/pneumonia/deconditioning. We discussed in great detail both management strategies. if the family does indeed elect to proceed with operative intervention, he would most likely be permitted to bear weight as tolerated. with non operative care we will attempt to mobilize the patient as much as possible and make his as comfortable as possible, but I stated that i suspect he will be in significant pain and likely would be mostly immobile for at least 6 weeks. After taking the evening to think about their options, the patient's family has opted for operative management. We will plan to proceed to the OR today pending or availability. All of their questions were answered to their satisfaction. No promises or guarantees were stated or implied. Patient has been n.p.o. since midnight. Additionally, on imaging review, the patient does appear to have sustained a nondisplaced distal radius fracture. considering his medical state, my recommendation is for nonoperative management of this injury in a wrist brace. the patient's family are agreeable to the plan.
[2024-08-25] MEDS: ceFAZolin 2,000 MG/15 ML IV PUSH IV ONE (12:24)
[2024-08-25] MEDS: ceFAZolin 2000MG 2,000 MG/15 ML SYR IV ONE ×2 (13:26→22:28)
[2024-08-25] MEDS ORDERED: POTASSIUM PHOS 3 MMOL/1 ML INFUSION IV STA (14:50)
--- NOTE | 2024-08-25 15:00 | Hospitalist Progress Note ---
Date of Service August 25, 2024 Assessment & Plan (1) Intertrochanteric fracture of right hip: Plan 89-year-old male with PMH of CAD, SSS s/p PPM off of Coumadin due to fall risk, NSVT, HTN, HLD, seizure disorder, dementia, NAFLD, chronic anemia [baseline hemoglobin of 12], upper extremity DVT, hypothyroidism, BPH, GERD, skin cancer who is a resident of [facility] [since February 2024 due to progressive dementia] was found on the floor of his room complaining of right hip pain prior to arrival, noted to have acute fracture of right femur. He is being managed for the following: Right hip fracture Right wrist fracture History of ambulatory dysfunction Underlying dementia Admitting imagings: Right hip x-ray: Suspicion of comminuted intertrochanteric femoral fracture. Right femur x-ray: Acute impacted and angulated intertrochanteric fracture of the right femur Pelvic CT: Acute intertrochanteric fracture of the right femur. Right hand x-ray And wrist: Subtle lucent line at the radial styloid process raising the possibility of undisplaced fracture. A few bony chips are seen along the lateral aspect of the wrist. Ortho on board, plan for rt hip repair 08/25, Wrist braces x right wrist. Cardio evaled for preop clearance. c/w IVF, resume diet after sx. Continue with pain management, nausea control. High risk of delirium. Delirium precautions, Zyprexa as needed agitation Abnormal CXR: Admitting CXR with haziness seen in the right mid and lower zones. Per patient's , patient with no fever or flulike illness prior to arrival, admitting WBC minimally elevated likely secondary to acute distress, pt has been afebrile. monitor off of antibiotic for now. WBC trended down to nl. Hypertensive urgency: Likely secondary to acute distress. Continue with home blood pressure medication, as needed IV blood pressure medications to help blood pressures to control. Acute on chronic anemia, hemoglobin drop from baseline possibly from blood loss secondary to trauma. Monitor, transfuse for Hb < 7 or for symptomatic anemia. Hb stable today. Other chronic medical conditions: Continue with/resume home meds as and when able. CAD SSS s/p PPM off Coumadin due to fall risk, device battery reaching recommended replacement time as of last remote transmission as per outpatient cardiology note 08/19. No benefit from battery replacement as per discussion with outpatient cardiology provider as per . Valvular heart disease (mild , moderate MR/TR, TTE 2023) NSVT hyperlipidemia currently not on statin Rx seizure disorder, on Keppra Rx, will change to iv keppra due inconsistency of oral intake, d/w pharmacy 08/25, [place] dose iv keppra hx NAFLD history upper extremity DVT as per records hypothyroidism, TSH markedly elevated at 16, Increase current levothyroxine dose from 88 mcg to 100 mcg daily, recheck outpatient TSH after 6 weeks. GOC discussion: Patient family cognizant that patient's quality of life has been on steady decline due to progressive dementia over the last 6 months. Family aware of high likelihood of poor consequences of hospitalization and surgery and accept the facts. For now plan is for Sx after d/w family, will continue to monitor. Possible palliative involvement inpatient vs outpatient. DVT prophylaxis. SCDs re: blood loss from injury, possible surgery DNR Patient Ms. Daria Story, contact #[phone]. Updated at bedside. Text document was generated using [employer] voice recognition software. It may contain grammatical or spelling errors. Kindly contact undersigned for clarification of any documentation item in question. Admission and Anticipated Discharge Date Admission Date: August 24, 2024 Subjective Patient was seen and examined at bedside. Patient was lying in bed, on room air, confused, appears to be in pain with movement of limbs. Patient's family at bedside, discussed plan of care for the day and possible outcome, they voiced understanding and are aware of possible very poor prognosis going forward. Pt w/ poor po intake per RN, will use ivf. Physical Exam Physical Exam: GENERAL: Demented, confused, no respiratory distress SKIN: Pallor, warm HEENT: Pale palpebral conjunctivae, no ptosis, dry buccal mucosa NECK : Supple, no tenderness CHEST : CTA, no tenderness HEART : RRR, systolic murmur ABDOMEN: Some distention, nontender EXTREMITIES : Right hip tenderness, tender right hand contusion NEUROLOGIC : demented, no facial asymmetry, gait and stance not assessed Results & Data Results & Data Vital Signs (Past 12 Hours) Vital Signs Temp Pulse Pulse Resp BP Pulse Ox O2 Del Method 08/25/24 12:07 37.0 C 69 20 170/87 H 95 Room Air 08/25/24 11:28 36.6 C 107 H 18 163/76 H 99 Room Air 08/25/24 10:51 Room Air 08/25/24 07:57 70 08/25/24 07:54 37.3 C 16 159/88 H 95 Room Air 08/25/24 07:10 63 08/25/24 05:08 36.7 C 80 18 149/74 H 95 Room Air 08/25/24 04:05 36.7 C 80 20 149/74 H 95 Room Air
--- NOTE | 2024-08-25 15:23 | Fluoroscopy Report ---
FL hip RT 2-3V CLINICAL HISTORY: RIGHT SHORT TROCH NAIL COMPARISON STUDY: Femur radiographs 08/24/2024 FLUOROSCOPY TIME: 2 minutes and 33.2 seconds FLUOROSCOPY IMAGES: 16 EXPOSURE DOSE: 22.307 mGy FINDINGS: Status post placement of an intertrochanteric nail with elongated medullary imtiaz fixating th e acute proximal right femoral fracture with satisfactory alignment. Moderate right hip osteoarthriti s. Urinary bladder catheter. IMPRESSION: Fluoroscopic assistance as above. ACT 112: Negative or not required by law. Electronically signed by: Shmuel Tang M.D. 08/25/2024 3:21 PM
--- NOTE | 2024-08-25 15:33 | Post Operative Brief Note ---
Immediate Post Op Note Date of Surgery August 25, 2024 Pre & Post Diagnosis Operation Date: 08/25/24 08:20 Pre-Op Diagnosis: Closed, traumatic, displaced right intertrochanteric hip fracture Post-Op Diagnosis: Closed, traumatic, displaced right intertrochanteric hip fracture I identified the patient and participated in the time-out.: Yes Procedure Operation Date: 08/25/24 08:20 Actual Procedures p Right femur cephalomedullary fixation with physician directed fluoroscopy less than 1 hour(Right) - Jarad Norton DO 1. Closed reduction and cephalomedullary nail fixation right intertrochanteric hip fracture 2. Physician directed fluoroscopy less than 1 hour Surgeon Jarad Norton DO [employer] Director none Estimated Blood Loss 250 Findings Consistent with Post-Op Diagnosis Fluids see anesthesia record Anesthesia Type General Complications none immediately apparent Disposition Disposition: Recovery Room Overlapping Procedure I was present for: the critical portions of procedure. ( the entire surgery)
--- NOTE | 2024-08-25 15:37 | Operative Report ---
Post Operative Report Pre & Post Diagnosis Operation Date: 08/25/24 08:20 Pre-Op Diagnosis: 1. Closed, traumatic, displaced right intertrochanteric hip fracture 2. Closed, traumatic, minimally displaced right distal radius fracture Post-Op Diagnosis: 1. Closed, traumatic, displaced right intertrochanteric hip fracture 2. Closed, traumatic, minimally displaced right distal radius fracture I identified the patient and participated in the time-out.: Yes Procedure Operation Date: 08/25/24 08:20 Actual Procedures p Right femur cephalomedullary fixation with physician directed fluoroscopy less than 1 hour(Right) - Jarad Norton DO 1. Closed reduction and cephalomedullary fixation right intertrochanteric hip fracture 2. Physician directed fluoroscopy less than 1 hour 3. Closed management right distal radius fracture Surgeon Jarad Norton DO [employer] none Estimated Blood Loss 250 Findings Consistent with Post-Op Diagnosis Fluids see anesthesia record Specimens none Drains none Anesthesia Type Spinal Complications none immediately apparent Disposition Disposition: Recovery Room Indications This is an 89-year-old gentleman who fell in his memory care facility and sustained a closed, traumatic, displaced right intertrochanteric hip fracture. The patient was evaluated by cardiology and medicine and cleared for operative intervention I once again explained to the patient's that this fracture represents an unstable injury, and as such, in most patients, we recommend operative intervention to include open versus closed reduction and internal fixation. I did explain to the patient's that often times hip fractures are a harbinger of worse things to come, meaning that this oftentimes signifies the beginning of the end of a patient's life. We discussed this in great detail and in plain terms. For historical reference, the patients informed me that he recently discontinued anticoagulation for his atrial fibrillation and discontinued routine pacemaker battery exchange - she notes that his heart has been previosuly very dependent on this pacemaker. 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 He is also a DNR/DNI. She and the patient's daughter both know that the end of Isabela's life is close. I explained to the patient's and daughter that all operative interventions carry with them inherent risk, and considering the patient's fragile medical state as well as his age, he is at a much higher risk than most for complication from surgery. With regards to the surgery itself, there are risks that include but are not limited to loss of life/limb, DVT, incomplete relief of pain, need for additional surgery, infection, nonunion, malunion, hardware complication, hardware failure, hardware irritation, iatrogenic injury to bone/nerve/tendon/vessel, decrease in ambulatory status, blood loss anemia requiring transfusion or blood pressure support.I also explained that with nonoperative care there are significant risks, as well. The risks of nonoper ative care include but are not limited to complications of immobility such as DVT/sacral decubitus ulcers/pneumonia/deconditioning. We discussed in great detail both management strategies. if the family does indeed elect to proceed with operative intervention, he would most likely be permitted to bear weight as tolerated. with non operative care we will attempt to mobilize the patient as much as possible and make his as comfortable as possible, but I stated that i suspect he will be in significant pain and likely would be mostly immobile for at least 6 weeks. After taking the evening to think about their options, the patient's family has opted for operative management. We will plan to proceed to the OR today pending or availability. All of their questions were answered to their satisfaction. No promises or guarantees were stated or implied. Patient has been n.p.o. since midnight. Additionally, on imaging review, the patient does appear to have sustained a nondisplaced distal radius fracture. considering his medical state, my recommendation is for nonoperative management of this injury in a wrist brace. the patient's family are agreeable to the plan. Description of Procedure after informed consent was obtained, the patient was correctly identified in the preoperative holding suite, the operative site was marked with the surgeon's initials, the date of surgery, and the word yes. The patient was then taken to the operative suite. The department of anesthesia administered Spinal anesthesia. The patient was transferred from the [facility] to the operative table. All bony prominences were well-padded. Briefing and timeout was performed. All implants were available and sterile at the time. BRIEFING AND DEBRIEFING: Pre and post operative briefing and debriefing was performed. Introductions were made, goals of the procedure were discussed, questions and concerns were addressed. The operative site markings were haley ntified and appropriate. A time [id number] was performed, the patient's correct identity was confirmed and the correct operative sites were identified. The patients pre-operative antibiotic dosing and administration was confirmed along with other SCIP measures. The team was polled at the completion of the surgery and all team members were in agreement that the procedure was without complication, the counts are correct, the wound class was identified and suggestions for improvement were shared. after adequate analgesia was obtained, the patient was transferred in supine fashion from the hospital bed to the operative table. All bony promises were well-padded. Perineal post was secured in place and both feet were placed into the foot holders. The legs were scissored and the right upper extremity was padded and draped across the chest. fluoroscopy was then used to obtain a closed reduction. Traction and internal rotation of the leg did give us an adequate reduction and at this point the leg was prepped and draped in standard sterile fashion using ChloraPrep and the shower curtain drape. The anatomy of the proximal femur was then marked out using fluoroscopy and we planned for a 3 cm incision approximately 2 cm proximal to the tip the greater trochanter in line with the femoral shaft. We incised sharply through skin and then bluntly dissected through the gluteal fascia with Cheung scissors. The starting wire was then introduced and an appropriate start point at the tip the greater trochanter in line with the femoral shaft was then obtained. This was advanced into the proximal femur and over this the opening reamer was then used. We ensured appropriate trajectory in both the AP and lateral views. At this point, I checked with anesthesia and they said that the patient was stable, so we made the decision to proceed with a long cephalomedullary nail in order to protect the entire bone. The ball-tipped guidewire was advanced from the pro ximal femur all the way down to the distal femur and the position of the ball- tipped guidewire was checked in both the AP and lateral views. We then measured this and selected the largest diameter nail we had available to us which was a 11 mm x 380 mm x 130 degrees Synthes TFN a nail. This was attached to the insertion handle and this was impacted down the femoral shaft. We ensured appropriate trajectory on all fluoroscopic views and impacted it far enough that the leg will would be in appropriate position. Once were satisfied with the position, we placed the targeting guide for the lag bolt and then through this guide advanced the guidewire such that we were in a center center position within the femoral head in order to minimize tip to apex distance. We measured this wire, selected a 95 mm lag bolt, drilled for the lag bolt, and then placed the lag [place] into the head. We then compressed through the jig and were satisfied with decompression. We tightened down the locking knot proximally and then backed it off quarter turn to allow dynamic compression with ambulation. Next, using a perfect wales technique, we placed 1 single static distal interlocking screw through the nail. this was drilled and measured and placed. We placed a 5 mm x 42 mm distal interlocking screw. We checked all final fluoroscopic images and were satisfied with our reduction and internal fixation. Next, we irrigated the wounds copiously with sterile saline and moved onto our layered closure. We closed the gluteal fascia and the IT band using 0 Vicryl suture followed by 2-0 Vicryl suture in the subcutaneous tissue and then ran a 3-0 Monocryl subcuticularly. Then, we placed glue over all wounds and allowed this to dry. We placed Acticoat Flex, 4 x 4's, Tegaderms over the wounds as w ell. The patient's right distal radius fracture will be managed nonoperatively. We have obtained for him a [id number] wrist brace to use The patient tolerated this procedure well and was transferred to the PACU in stable condition. Prior to transportation to PACU, all counts were correct and a briefing was performed at the end of the case. Physician-directed fluoroscopy for less than one hour was performed by myself to verify fracture alignment and the safe placement of all internal fixation. The final images saved to PACs showed views demonstrating satisfactory alignment of the fracture and stable internal fixation. Implant verification was performed by myself by reading and confirming the implant information on the packaging with the team before the sterile implants were opened. I was present for the entire procedure. Plan: Weight bearing status: as tolerated Wound care: keep dressings clean and dry Range of motion: as tolerated VTE Prophylaxis: okay for DVT prophylaxis from orthopedic standpoint Antibiotics: perioperative Ancef Pain Control: multimodal Vitamin D Replacement: labs pending Discharge Plan: pending clinical course and PT/OT eval Follow Up: with myself in 2 weeks Implants: Synthes 11 mm x 380 mm x 130 degrees TFNA nail, 95 mm lag bolt, 5mm x 42mm distal interlocking screw I attest to the content of the Intraoperative Record and any orders documented therein. Any exceptions are noted below.
--- NOTE | 2024-08-25 15:55 | Anesthesiology Progress Note ---
Date of Service August 25, 2024 Anesthesia Post Procedure Vital Signs Vital Signs: Temp Pulse Pulse Pulse Resp BP Pulse Ox 08/25/24 15:40 78 21 133/61 98 08/25/24 15:30 37.1 C 67 21 139/57 L 97 08/25/24 12:07 37.0 C 69 20 170/87 H 95 08/25/24 11:28 36.6 C 107 H 18 163/76 H 99 08/25/24 10:51 08/25/24 07:57 70 08/25/24 07:54 37.3 C 16 159/88 H 95 08/25/24 07:10 63 08/25/24 05:08 36.7 C 80 18 149/74 H 95 08/25/24 04:05 36.7 C 80 20 149/74 H 95 08/24/24 23:59 60 08/24/24 23:00 08/24/24 22:55 37.7 C H 64 18 156/75 H 94 08/24/24 19:33 37.7 C H 75 18 147/74 H 96 08/24/24 16:03 60 O2 Del Method O2 Flow Rate 08/25/24 15:40 Room Air 08/25/24 15:30 Room Air 08/25/24 12:07 Room Air 08/25/24 11:28 Room Air 08/25/24 10:51 Room Air 08/25/24 07:57 08/25/24 07:54 Room Air 08/25/24 07:10 08/25/24 05:08 Room Air 08/25/24 04:05 Room Air 08/24/24 23:59 08/24/24 23:00 Nasal Cannula 2 08/24/24 22:55 Room Air 08/24/24 19:33 Room Air 08/24/24 16:03 Pain Intensity Right Hip: Pain Intensity: 10 Transfer of Care Handoff Completed per policy Notes Mental Status: alert / awake / arousable Patient Amnestic to Procedure: Yes Nausea / Vomiting: adequately controlled Pain: adequately controlled Airway Patency, RR, SpO2: stable & adequate BP & HR: stable & adequate Hydration State: stable & adequate Neuraxial Anesthesia: was administered and sensory block is resolving Anesthetic Complications: no major complications apparent and Pt Satisfied with anesthetic care
--- NOTE | 2024-08-25 16:13 | XRay Report ---
CLINICAL HISTORY: Postoperative evaluation. COMPARISON: CT from the prior day. TECHNIQUE: 4 views of the right femur. FINDINGS/IMPRESSION: Right femoral hardware appears intact. Improved alignment of right hip fracture. No new fracture or dislocation. Postoperative changes in the soft tissues. Electronically signed by Daryl Koch 08-25-2024 4:12 PM
[2024-08-25] MEDS: POTASSIUM CHLORIDE / WTR 10 MEQ/100 ML PLCT IV SCH (16:15)
[2024-08-25] MEDS: SODIUM CHLORIDE 0.9% 1,000 ML IV SCH (16:15)
[2024-08-25] MEDS: levETIRAcetam 500 MG/5 ML VIAL IV SCH (19:09)
[2024-08-25] MEDS: POTASSIUM PHOSPHATE 15 MMOL in SODIUM CHLORIDE 0.9% 250 ML IV ONE (19:22)
[2024-08-25] MEDS ORDERED: levETIRAcetam 500 MG/5 ML VIAL IV SCH (21:00)
--- NOTE | 2024-08-26 08:30 | Orthopedic Progress Note ---
Date of Service August 26, 2024 Assessment & Plan (1) Intertrochanteric fracture of right hip: (2) Fracture of right distal radius: (3) PAF (paroxysmal atrial fibrillation): (4) Asymptomatic hypertensive urgency: (5) Alzheimer's dementia: (6) CHF (congestive heart failure): (7) Elevated troponin: (8) Syncope and collapse: Plan Patient resting comfortably postoperative day #1 status post right hip cephalomedullary nailing. He may bear weight as tolerated. Keep wrist brace on for minimally displaced right distal radius fracture. Would recommend platform weightbearing on the right upper extremity, however patient is unlikely to comply with this. Okay for anticoagulation from orthopedic standpoint. Weightbearing as tolerated right lower extremity. Patient will follow-up with me in 2 weeks for wound check. Vitamin D labs pending Admission and Anticipated Discharge Date Admission Date: August 24, 2024 Subjective Patient resting comfortably in bed this morning. Per nursing he slept all evening. Review of Systems Review of Systems: Unobtainable due to cognitive status Physical Exam Physical Exam: Dressings clean dry and intact. Right wrist brace in place. Unable to participate in detailed neurologic exam. Results & Data Vital Signs (Past 12 Hours) Vital Signs Temp Pulse Pulse Resp BP Pulse Ox O2 Del Method 08/26/24 08:18 Room Air 08/26/24 07:33 36.8 C 72 19 152/61 H 93 Room Air 08/26/24 02:42 81 143/89 H 08/26/24 02:22 36.6 C 77 20 176/127 H 96 Room Air 08/25/24 23:00 65 Diagnostic Findings Operative x-rays were personally interpreted and reviewed. These demonstrate stable internal fixation of right intertrochanteric hip fracture with long cephalomedullary nail. (5) Alzheimer's dementia Alzheimer's disease onset: unspecified onset (6) CHF (congestive heart failure) Heart failure type: unspecified Heart failure chronicity: chronic Qualified Code(s): I50.9 - Heart failure, unspecified
[2024-08-26 10:31] LABS: Hematocrit (blood only) 26.2 % (42.0-52.0); Hemoglobin 8.7 g/dl (14.0-18.0); Mean Corpuscular Hemoglobin 32.3 pg (25.0-34.0); Mean Corpuscular Hgb Conc 33.2 g/dL (32.0-36.0); Mean Corpuscular Volume 97.4 fL (80.0-100.0); Mean Platelet Volume 10.9 fL (9.4-12.4); Platelet Count 135 K/uL (130-400); RDW Coefficient of Variation 13.8 % (11.5-14.5); RDW Standard Deviation 49.5 fL (36.4-46.3); Red Blood Count 2.69 M/uL (4.70-6.10); White Blood Count 11.91 K/ul (4.8-10.8)
[2024-08-26 10:45] LABS: BUN Creatinine Ratio 22.6 (10-20); Calcium 8.1 mg/dl (8.6-10.3); Creatinine Clr Calc Pharmacy 49.2 ml/min; Magnesium 1.9 mg/dl (1.7-2.4); Phosphorus 2.3 mg/dl (2.5-4.9); Potassium 3.6 mmol/L (3.5-5.1)
[2024-08-26] MEDS ORDERED: POTASSIUM PHOS 3 MMOL/1 ML INFUSION IV STA (16:03)
--- NOTE | 2024-08-26 16:10 | Hospitalist Progress Note ---
Date of Service August 26, 2024 Assessment & Plan (1) Intertrochanteric fracture of right hip: Plan 89-year-old male with PMH of CAD, SSS s/p PPM off of Coumadin due to fall risk, NSVT, HTN, HLD, seizure disorder, dementia, NAFLD, chronic anemia [baseline hemoglobin of 12], upper extremity DVT, hypothyroidism, BPH, GERD, skin cancer who is a resident of [facility] [since February 2024 due to progressive dementia] was found on the floor of his room complaining of right hip pain prior to arrival, noted to have acute fracture of right femur. He is being managed for the following: Right hip fracture Right wrist fracture History of ambulatory dysfunction Underlying dementia Admitting imagings: Right hip x-ray: Suspicion of comminuted intertrochanteric femoral fracture. Right femur x-ray: Acute impacted and angulated intertrochanteric fracture of the right femur Pelvic CT: Acute intertrochanteric fracture of the right femur. Right hand x-ray And wrist: Subtle lucent line at the radial styloid process raising the possibility of undisplaced fracture. A few bony chips are seen along the lateral aspect of the wrist. Ortho on board, Right femur cephalomedullary fixation 08/25, Wrist braces x right wrist. c/w IVF, encourage PO intake Continue with pain management, nausea control. High risk of delirium. Delirium precautions, Zyprexa as needed agitation will initiate dvt Px post Sx w/ ortho clearance. Vit D def: started on ergo 1.25 mg q7d on 08/26. continue. Abnormal CXR: Admitting CXR with haziness seen in the right mid and lower zones. Per patient's , patient with no fever or flulike illness prior to arrival, admitting WBC minimally elevated likely secondary to acute distress, pt has been afebrile. monitor off of antibiotic for now. WBC trended down to nl next day. Hypertensive urgency: Likely secondary to acute distress. Continue with home blood pressure medication, as needed IV blood pressure medications to help blood pressures to control. Acute on chronic anemia, hemoglobin drop from baseline possibly from blood loss secondary to trauma. Monitor, transfuse for Hb < 7 or for symptomatic anemia. Hb stable today. Other chronic medical conditions: Continue with/resume home meds as and when able. CAD SSS s/p PPM off Coumadin due to fall risk, device battery reaching recommended replacement time as of last remote transmission as per outpatient cardiology note 08/19. No benefit from battery replacement as per discussion with outpatient cardiology provider as per . Valvular heart disease (mild , moderate MR/TR, TTE 2023) NSVT hyperlipidemia currently not on statin Rx seizure disorder, on Keppra Rx, will change to iv keppra due inconsistency of oral intake, d/w pharmacy 08/25, [place] dose iv keppra hx NAFLD history upper extremity DVT as per records hypothyroidism, TSH markedly elevated at 16, Increase current levothyroxine dose from 88 mcg to 100 mcg daily, recheck outpatient TSH after 6 weeks. GOC discussion: Patient family cognizant that patient's quality of life has been on steady decline due to progressive dementia over the last 6 months. Family aware of high likelihood of poor consequences of hospitalization and surgery and accept the facts. For now plan is for Sx after d/w family, will continue to monitor. Possible palliative involvement inpatient vs outpatient. DVT prophylaxis. SCDs re: blood loss from injury, possible surgery DNR PT/OT, CM to assist w/ dc plan. Patient Ms. Daria Story, contact #[phone]. Updated at bedside. Text document was generated using [employer] voice recognition software. It may contain grammatical or spelling errors. Kindly contact undersigned for clarification of any documentation item in question. Admission and Anticipated Discharge Date Admission Date: August 24, 2024 Subjective Patient was seen and examined at bedside. Patient was lying in bed, on room air, sleeping, NAD. Patient's family (son and DIL) at bedside. Encourage PO intake. Physical Exam Physical Exam: GENERAL: Demented, confused, no respiratory distress SKIN: Pallor, warm HEENT: Pale palpebral conjunctivae, no ptosis, dry buccal mucosa NECK : Supple, no tenderness CHEST : CTA, no tenderness HEART : RRR, systolic murmur ABDOMEN: Some distention, nontender EXTREMITIES : Right hip dressing c/d/i, tender right hand contusion NEUROLOGIC : demented, no facial asymmetry, gait and stance not assessed Results & Data Results & Data Vital Signs (Past 12 Hours) Vital Signs Temp Pulse Pulse Resp BP BP Pulse Ox 08/26/24 16:00 36.5 C 75 19 164/68 H 95 08/26/24 15:55 68 08/26/24 11:36 38.2 C H 68 19 175/61 H 95 08/26/24 10:24 72 08/26/24 08:18 08/26/24 07:33 36.8 C 72 19 152/61 H 93 O2 Del Method 08/26/24 16:00 Room Air 08/26/24 15:55 08/26/24 11:36 Room Air 08/26/24 10:24 08/26/24 08:18 Room Air 08/26/24 07:33 Room Air
[2024-08-26] MEDS: POT PHOSPHATE MONOBASIC W/ SOD TAB PO SCH (17:50)
[2024-08-26] MEDS: ERGOCALCIFEROL 1250 MCG (50,000 UNITS) CAP PO SCH (17:50)
[2024-08-26] MEDS: oxyCODONE HCL IR 5 MG TAB (IMMEDIATE RELEASE) PO PRN (20:14)
[2024-08-27] MEDS: hydrALAZINE HCL 20 MG/ML VIAL IV PRN (05:02)
[2024-08-27 06:32] LABS: Hematocrit (blood only) 26.2 % (42.0-52.0); Hemoglobin 8.2 g/dl (14.0-18.0); Mean Corpuscular Hemoglobin 32.3 pg (25.0-34.0); Mean Corpuscular Hgb Conc 31.3 g/dL (32.0-36.0); Mean Corpuscular Volume 103.1 fL (80.0-100.0); Mean Platelet Volume 11.6 fL (9.4-12.4); Platelet Count 130 K/uL (130-400); RDW Standard Deviation 52.7 fL (36.4-46.3); Red Blood Count 2.54 M/uL (4.70-6.10); White Blood Count 9.21 K/ul (4.8-10.8)
[2024-08-27 06:49] LABS: Calcium 8.1 mg/dl (8.6-10.3); Potassium 3.3 mmol/L (3.5-5.1)
[2024-08-27 06:55] LABS: BUN Creatinine Ratio 24.8 (10-20); Creatinine Clr Calc Pharmacy 51.8 ml/min
--- NOTE | 2024-08-27 08:31 | Orthopedic Progress Note ---
Date of Service August 27, 2024 Assessment & Plan (1) Intertrochanteric fracture of right hip: (2) Fracture of right distal radius: (3) PAF (paroxysmal atrial fibrillation): (4) Asymptomatic hypertensive urgency: (5) Alzheimer's dementia: (6) CHF (congestive heart failure): (7) Elevated troponin: (8) Syncope and collapse: Plan Patient doing well postoperative day #2 status post right hip cephalomedullary nailing. He may bear weight as tolerated. Unfortunately, the patient has not been keeping his wrist brace on for his minimally displaced right distal radius fracture, I did consider placing the patient in a cast, however due to his combativeness and mental state, this could be more dangerous. Would recommend continuing to attempt to keep wrist brace on. Would recommend platform weightbearing on the right upper extremity, however patient is unlikely to com ply with this. Okay for anticoagulation from orthopedic standpoint. Weightbearing as tolerated right lower extremity. Patient will follow-up with me in 2 weeks for wound check. Vitamin D labs demonstrate level of 20.5. Would recommend repletion. Admission and Anticipated Discharge Date Admission Date: August 24, 2024 Subjective Patient resting upon evaluation this morning. Per his rehab nursing tech at bedside, he has been pulling at his [place], but does not seem to be complaining of any right hip pain. He also reportedly has not kept his right wrist brace on. Physical Exam Physical Exam: Dressings clean dry and intact. Right wrist brace in place. Unable to participate in detailed neurologic exam. Results & Data Vital Signs (Past 12 Hours) Vital Signs Temp Pulse Pulse Resp BP Pulse Ox O2 Del Method 08/27/24 07:58 Room Air 08/27/24 07:39 38.2 C H 73 18 158/64 H 93 Room Air 08/27/24 05:39 36.2 C L 78 20 135/64 96 Room Air 08/27/24 03:49 38.1 C H 69 18 173/73 H 93 Room Air 08/26/24 23:00 68 08/26/24 22:18 37.7 C H 66 18 154/62 H 94 Room Air (5) Alzheimer's dementia Alzheimer's disease onset: unspecified onset (6) CHF (congestive heart failure) Heart failure type: unspecified Heart failure chronicity: chronic Qualified Code(s): I50.9 - Heart failure, unspecified
[2024-08-27] MEDS: ENOXAPARIN INJ 40 MG/0.4 ML SYR SQ SCH (08:32)
--- NOTE | 2024-08-27 09:29 | XRay Report ---
XR chest 1V portable CLINICAL HISTORY: Evaluate for pneumonia. COMPARISON STUDY: Chest radiograph August 24, 2024. FINDINGS: A left subclavian pacer in place. Moderate cardiomegaly is unchanged. There is mild interst itial thickening. Mild hazy asymmetric left lung opacity is present. No consolidation is present. IMPRESSION: 1. Cardiomegaly with mild interstitial pulmonary edema. 2. Mild asymmetric hazy left lung opacity. This could be artifactual. Alternatively, asymmetric pulmo nary edema or layering pleural effusion could appear similar. An infectious process is considered les s likely but within the differential. ACT 112: Negative or not required by law. Electronically signed by: Tavon Momin M.D. 08/27/2024 9:28 AM
[2024-08-27] MEDS: POTASSIUM CHLORIDE 20 MEQ/15 ML UDC PO STA (09:31)
[2024-08-27] MEDS: POT PHOSPHATE MONOBASIC W/ SOD TAB PO SCH (09:32)
[2024-08-27] MEDS: cefTRIAXone SODIUM 1,000 MG/50 ML BAG IV SCH (13:38)
[2024-08-27] MEDS: ACETAMINOPHEN 500 MG TAB PO PRN (13:57)
--- NOTE | 2024-08-27 15:28 | Hospitalist Progress Note ---
Date of Service August 27, 2024 Assessment & Plan (1) Intertrochanteric fracture of right hip: Plan 89-year-old male with PMH of CAD, SSS s/p PPM off of Coumadin due to fall risk, NSVT, HTN, HLD, seizure disorder, dementia, NAFLD, chronic anemia [baseline hemoglobin of 12], upper extremity DVT, hypothyroidism, BPH, GERD, skin cancer who is a resident of [facility] [since February 2024 due to progressive dementia] was found on the floor of his room complaining of right hip pain prior to arrival, noted to have acute fracture of right femur. He is being managed for the following: Right hip fracture Right wrist fracture History of ambulatory dysfunction Underlying dementia Admitting imagings: Right hip x-ray: Suspicion of comminuted intertrochanteric femoral fracture. Right femur x-ray: Acute impacted and angulated intertrochanteric fracture of the right femur Pelvic CT: Acute intertrochanteric fracture of the right femur. Right hand x-ray And wrist: Subtle lucent line at the radial styloid process raising the possibility of undisplaced fracture. A few bony chips are seen along the lateral aspect of the wrist. Ortho on board, Right femur cephalomedullary fixation 08/25, Wrist braces x right wrist. Per RN improving p.o. intake. Continue with pain management, nausea control. High risk of delirium. Delirium precautions, Zyprexa as needed agitation Lovenox as DVT prophylaxis. Febrile episodes, ro infxn vs post op fever :/ to 08/27 overnight with fever episodes. Urine analysis, chest x-ray, procalcitonin, blood culture has been sent. Repeat Chest x-ray with mild haziness over left lung. Admitting CXR has haziness over right and mid lower zones. Follow blood culture. Started Rocephin 08/27, temperature slowly getting better. Vit D def: started on ergo 1.25 mg q7d on 08/26. continue. Hypertensive urgency: Likely secondary to acute distress. Continue with home blood pressure medication, as needed IV blood pressure medications to help blood pressures to control. Acute on chronic anemia, hemoglobin drop from baseline possibly from blood loss secondary to trauma. Monitor, transfuse for Hb < 7 or for symptomatic anemia. Hb stable today. Other chronic medical conditions: Continue with/resume home meds as and when able. CAD SSS s/p PPM off Coumadin due to fall risk, device battery reaching recommended replacement time as of last remote transmission as per outpatient cardiology note 08/19. No benefit from battery replacement as per discussion with outpatient cardiology provider as per . Valvular heart disease (mild , moderate MR/TR, TTE 2023) NSVT hyperlipidemia currently not on statin Rx seizure disorder, on Keppra Rx, will change to iv keppra due inconsistency of oral intake, d/w pharmacy 08/25, renally dose iv keppra hx NAFLD history upper extremity DVT as per records hypothyroidism, TSH markedly elevated at 16, Increase current levothyroxine dose from 88 mcg to 100 mcg daily, recheck outpatient TSH after 6 weeks. GOC discussion: Patient family cognizant that patient's quality of life has been on steady decline due to progressive dementia over the last 6 months. Family aware of high likelihood of poor consequences of hospitalization and surgery and accept the facts. For now plan is for Sx after d/w family, will continue to monitor. Possible palliative involvement inpatient vs outpatient. DVT prophylaxis. SCDs re: blood loss from injury, possible surgery DNR PT/OT, CM to assist w/ dc plan. Patient Ms. Daria Story, contact #[phone]. Updated at bedside. Text document was generated using [employer] voice recognition software. It may contain grammatical or spelling errors. Kindly contact undersigned for clarification of any documentation item in question. Admission and Anticipated Discharge Date Admission Date: August 24, 2024 Subjective Patient was seen and examined at bedside. Patient was lying in bed, on room air, sleeping, NAD. Patient's family () at bedside. She was updated on plan of care. Encourage PO intake. Patient has been having febrile episodes overnight and in the morning, UA/blood cultures/procalcitonin/chest x-ray has been sent, Rocephin has been started. Will follow. Patient's is aware. Physical Exam Physical Exam: GENERAL: Demented, confused, no respiratory distress SKIN: Pallor, warm HEENT: Pale palpebral conjunctivae, no ptosis, dry buccal mucosa NECK : Supple, no tenderness CHEST : CTA, no tenderness HEART : RRR, systolic murmur ABDOMEN: Some distention, nontender EXTREMITIES : Right hip dressing c/d/i, tender right hand contusion NEUROLOGIC : demented, no facial asymmetry, gait and stance not assessed Results & Data Results & Data Vital Signs (Past 12 Hours) Vital Signs Temp Pulse Pulse Resp BP Pulse Ox O2 Del Method 08/27/24 11:44 37.6 C H 67 18 156/72 H 97 Room Air 08/27/24 10:15 65 08/27/24 07:58 Room Air 08/27/24 07:39 38.2 C H 73 18 158/64 H 93 Room Air 08/27/24 05:39 36.2 C L 78 20 135/64 96 Room Air 08/27/24 03:49 38.1 C H 69 18 173/73 H 93 Room Air
[2024-08-27] MEDS: ACETAMINOPHEN 1,000 MG/100 ML VIAL IV PRN (17:22)
[2024-08-27 17:44] LABS: Appearance Urine Turbid (Clear); Bacteria Urine Automated None Seen (None Seen); Bilirubin Urine 1+ (Negative); Blood Urine Trace (Negative); Color Urine Dark Yellow; Epithelial Cell Urine Auto 0-2 /hpf (0-2); Glucose Urine UA Negative (Negative); Ketones Urine Trace (Negative); Leukocyte Esterase Urine Trace (Negative); Nitrite Urine Negative (Negative); Protein Urine 2+ (Negative); Specific Gravity Urine 1.026 (1.000-1.030); Urobilinogen Urine Negative (Negative); pH Urine 5.5 (4.5-7.5)
[2024-08-28 07:53] LABS: Hematocrit (blood only) 24.1 % (42.0-52.0); Mean Corpuscular Hemoglobin 32.8 pg (25.0-34.0); Mean Corpuscular Hgb Conc 33.2 g/dL (32.0-36.0); Mean Corpuscular Volume 98.8 fL (80.0-100.0); Mean Platelet Volume 10.9 fL (9.4-12.4); Platelet Count 174 K/uL (130-400); RDW Coefficient of Variation 13.7 % (11.5-14.5); RDW Standard Deviation 49.1 fL (36.4-46.3); Red Blood Count 2.44 M/uL (4.70-6.10); White Blood Count 7.85 K/ul (4.8-10.8)
[2024-08-28] MEDS: ADVANCED PROBIOTIC 625 MG CAPSULE PO SCH (08:03)
[2024-08-28 08:16] LABS: BUN Creatinine Ratio 29.5 (10-20); Calcium 8.2 mg/dl (8.6-10.3); Creatinine Clr Calc Pharmacy 49.9 ml/min; Magnesium 2.1 mg/dl (1.7-2.4); Potassium 3.6 mmol/L (3.5-5.1)
--- NOTE | 2024-08-28 09:09 | Orthopedic Progress Note ---
Date of Service August 28, 2024 Assessment & Plan (1) Intertrochanteric fracture of right hip: (2) Fracture of right distal radius: (3) PAF (paroxysmal atrial fibrillation): (4) Asymptomatic hypertensive urgency: (5) Alzheimer's dementia: (6) CHF (congestive heart failure): (7) Elevated troponin: (8) Syncope and collapse: Plan Patient doing well postoperative day #3 status post right hip cephalomedullary nailing. He may bear weight as tolerated. Unfortunately, the patient has not been keeping his wrist brace on for his minimally displaced right distal radius fracture, I did consider placing the patient in a cast, however due to his combativeness and mental state, this could be more dangerous. Would recommend continuing to attempt to keep wrist brace on, which it seems like he has done for the past day. Would recommend platform weightbearing on the right upper extremity, however patient is unlikely to comply with this. Okay for anticoagulation from orthopedic standpoint. Weightbearing as tolerated right lower extremity. Patient will follow-up with me in 2 weeks for wound check. Vitamin D labs demonstrate level of 20.5. being repleted. Admission and Anticipated Discharge Date Admission Date: August 24, 2024 Subjective Patient was seen and examined at bedside. nursing assisting sitting the patient up for a bath. no acute complaints. receiving rocephin for suspected UTI. Physical Exam Physical Exam: Dressings clean dry and intact. Right wrist brace in place. Unable to participate in detailed neurologic exam. Results & Data Vital Signs (Past 12 Hours) Vital Signs Temp Pulse Pulse Resp BP Pulse Ox O2 Del Method 08/28/24 07:17 61 08/28/24 07:14 37.3 C 60 16 175/75 H 97 Room Air 08/28/24 04:22 36.7 C 60 20 159/67 H 97 Room Air 08/27/24 23:15 Room Air 08/27/24 21:43 60 (5) Alzheimer's dementia Alzheimer's disease onset: unspecified onset (6) CHF (congestive heart failure) Heart failure chronicity: chronic Heart failure type: unspecified Qualified Code(s): I50.9 - Heart failure, unspecified
--- NOTE | 2024-08-28 13:48 | Hospitalist Progress Note ---
Date of Service August 28, 2024 Assessment & Plan (1) Intertrochanteric fracture of right hip: Plan 89-year-old male with PMH of CAD, SSS s/p PPM off of Coumadin due to fall risk, NSVT, HTN, HLD, seizure disorder, dementia, NAFLD, chronic anemia [baseline hemoglobin of 12], upper extremity DVT, hypothyroidism, BPH, GERD, skin cancer who is a resident of [facility] [since February 2024 due to progressive dementia] was found on the floor of his room complaining of right hip pain prior to arrival, noted to have acute fracture of right femur. He is being managed for the following: Right hip fracture Right wrist fracture History of ambulatory dysfunction Underlying dementia Admitting imagings: Right hip x-ray: Suspicion of comminuted intertrochanteric femoral fracture. Right femur x-ray: Acute impacted and angulated intertrochanteric fracture of the right femur Pelvic CT: Acute intertrochanteric fracture of the right femur. Right hand x-ray And wrist: Subtle lucent line at the radial styloid process raising the possibility of undisplaced fracture. A few bony chips are seen along the lateral aspect of the wrist. Ortho on board, Right femur cephalomedullary fixation 08/25, Wrist braces x right wrist. Per RN improving p.o. intake. More awake and alert today. Continue with pain management, nausea control. High risk of delirium. Delirium precautions, Zyprexa as needed agitation Lovenox as DVT prophylaxis. Monitor H&H, transfuse for hemoglobin less than 7 or for symptomatic anemia. Febrile episodes, ro infxn vs post op fever : to 08/27 overnight with fever episodes. 08/27 Urine analysis - neg for UTI though appeared dirty, will await Urine Cx. 08/27 chest x-ray w/ left lung opacity, ? infectious process, 08/27 procalcitonin elevated compared to admitting procal 08/27 Bl Cx, ng24hr, follow c/s. Started Rocephin 08/27, temperature slowly getting better. c/w atb for now, f/u on blood culture. Vit D def: started on ergo 1.25 mg q7d on 08/26. continue. Hypertensive urgency: Likely secondary to acute distress. Continue with home blood pressure medication, as needed IV blood pressure medications to help blood pressures to control. Acute on chronic anemia, hemoglobin drop from baseline possibly from blood loss secondary to trauma. Monitor, transfuse for Hb < 7 or for symptomatic anemia. Hb stable today. Other chronic medical conditions: Continue with/resume home meds as and when able. CAD SSS s/p PPM off Coumadin due to fall risk, device battery reaching recommended replacement time as of last remote transmission as per outpatient cardiology note 08/19. No benefit from battery replacement as per discussion with outpatient cardiology provider as per . Valvular heart disease (mild , moderate MR/TR, TTE 2023) NSVT hyperlipidemia currently not on statin Rx seizure disorder, on Keppra Rx, will change to iv keppra due inconsistency of oral intake, d/w pharmacy 08/25, renally dose iv keppra hx NAFLD history upper extremity DVT as per records hypothyroidism, TSH markedly elevated at 16, Increase current levothyroxine d ose from 88 mcg to 100 mcg daily, recheck outpatient TSH after 6 weeks. GOC discussion: Patient family cognizant that patient's quality of life has been on steady decline due to progressive dementia over the last 6 months. Family aware of high likelihood of poor consequences of hospitalization and surgery and accept the facts. For now plan is for Sx after d/w family, will continue to monitor. Possible palliative involvement inpatient vs outpatient. DVT prophylaxis. lovenox DNR PT/OT, CM to assist w/ dc plan. Patient Ms. Daria Story, contact #[phone]. Updated at bedside. Text document was generated using [employer] voice recognition software. It may contain grammatical or spelling errors. Kindly contact undersigned for clarification of any documentation item in question. Admission and Anticipated Discharge Date Admission Date: August 24, 2024 Subjective Patient was seen and examined at bedside. Patient was Sitting up in chair, more awake and alert today, on room air, NAD. Patient's family ( And daughter) at bedside. She was updated on plan of care. Encourage PO intake. Per RN, patient taking his p.o. medications in the morning and is eating better today. Per RN last evening, patient not taking his evening medications. c/w IV Keppra in place of evening p.o. Keppra. Patient's temperature relatively better today. Physical Exam Physical Exam: GENERAL: Demented, confused, no respiratory distress SKIN: Pallor, warm HEENT: Pale palpebral conjunctivae, no ptosis, moist buccal mucosa NECK : Supple, no tenderness CHEST : CTA, no tenderness HEART : RRR, systolic murmur ABDOMEN: Some distention, nontender EXTREMITIES : Right hip dressing c/d/i, tender right hand contusion NEUROLOGIC : demented, no facial asymmetry, gait and stance not assessed Results & Data Results & Data Vital Signs (Past 12 Hours) Vital Signs Temp Pulse Pulse Resp BP Pulse Ox O2 Del Method 08/28/24 11:38 37.7 C H 70 18 172/61 H 96 Room Air 08/28/24 07:17 61 08/28/24 07:14 37.3 C 60 16 175/75 H 97 Room Air 08/28/24 04:22 36.7 C 60 20 159/67 H 97 Room Air
[2024-08-28 20:50] LABS: Hematocrit (blood only) 25.2 % (42.0-52.0); Hemoglobin 8.2 g/dl (14.0-18.0)
[2024-08-29 06:11] LABS: Hemoglobin 8.2 g/dl (14.0-18.0); Mean Corpuscular Hemoglobin 32.4 pg (25.0-34.0); Mean Corpuscular Hgb Conc 32.8 g/dL (32.0-36.0); Mean Corpuscular Volume 98.8 fL (80.0-100.0); Mean Platelet Volume 10.6 fL (9.4-12.4); Platelet Count 205 K/uL (130-400); RDW Coefficient of Variation 13.2 % (11.5-14.5); Red Blood Count 2.53 M/uL (4.70-6.10); White Blood Count 7.95 K/ul (4.8-10.8)
[2024-08-29 06:37] LABS: BUN Creatinine Ratio 31.3 (10-20); Calcium 8.3 mg/dl (8.6-10.3); Creatinine Clr Calc Pharmacy 52.2 ml/min; Magnesium 2.1 mg/dl (1.7-2.4); Potassium 3.1 mmol/L (3.5-5.1)
[2024-08-29] MEDS: POLYETHYLENE (MIRALAX) 17 GM PACK PO PRN (07:43)
[2024-08-29] MEDS ORDERED: POTASSIUM PHOS 3 MMOL/1 ML INFUSION IV STA (08:06)
[2024-08-29] MEDS: POT PHOSPHATE MONOBASIC W/ SOD TAB PO SCH (09:27)
--- NOTE | 2024-08-29 09:31 | Orthopedic Progress Note ---
Date of Service August 29, 2024 Assessment & Plan (1) Intertrochanteric fracture of right hip: (2) Fracture of right distal radius: (3) PAF (paroxysmal atrial fibrillation): (4) Asymptomatic hypertensive urgency: (5) Alzheimer's dementia: (6) CHF (congestive heart failure): (7) Elevated troponin: (8) Syncope and collapse: Plan Patient doing well postoperative day #4 status post right hip cephalomedullary nailing. He may bear weight as tolerated. Unfortunately, the patient has not been keeping his wrist brace on for his minimally displaced right distal radius fracture, I did consider placing the patient in a cast, however due to his combativeness and mental state, this could be more dangerous. Would recommend continuing to attempt to keep wrist brace on, which it seems like he has done for the past two days. Would recommend platform weightbearing on the right upper extremity, however patient is unlikely to comply with this. Okay for anticoagulation from orthopedic standpoint. Weightbearing as tolerated right lower extremity. Patient will follow-up with me in 2 weeks for wound check. Vitamin D labs demonstrate level of 20.5. being repleted. Admission and Anticipated Discharge Date Admission Date: August 24, 2024 Subjective Patient much more alert and cooperative today. Remains pleasantly demented, however Review of Systems Review of Systems: Unobtainable due to cognitive status Physical Exam Physical Exam: Dressings clean dry and intact. Right wrist brace in place. Unable to participate in detailed neurologic exam. Results & Data Vital Signs (Past 12 Hours) Vital Signs Temp Pulse Pulse Resp BP Pulse Ox O2 Del Method 08/29/24 07:31 37.5 C 68 18 168/68 H 97 Room Air 08/29/24 07:08 68 08/29/24 04:23 175/76 H 08/29/24 03:21 36.8 C 83 19 171/77 H 96 Room Air 08/28/24 23:04 36.8 C 67 18 151/71 H 97 Room Air 08/28/24 23:02 67 08/28/24 22:28 Room Air (5) Alzheimer's dementia Alzheimer's disease onset: unspecified onset (6) CHF (congestive heart failure) Heart failure type: unspecified Heart failure chronicity: chronic Qualified Code(s): I50.9 - Heart failure, unspecified
[2024-08-29] MEDS: POTASSIUM CHLORIDE CRTAB 20 MEQ TABCR PO STA (09:58)
--- NOTE | 2024-08-29 13:30 | Hospitalist Progress Note ---
Date of Service August 29, 2024 Assessment & Plan (1) Intertrochanteric fracture of right hip: Plan 89-year-old male with PMH of CAD, SSS s/p PPM off of Coumadin due to fall risk, NSVT, HTN, HLD, seizure disorder, dementia, NAFLD, chronic anemia [baseline hemoglobin of 12], upper extremity DVT, hypothyroidism, BPH, GERD, skin cancer who is a resident of [facility] care unit [since February 2024 due to progressive dementia] was found on the floor of his room complaining of right hip pain prior to arrival, noted to have acute fracture of right femur. He is being managed for the following: Right hip fracture Right wrist fracture History of ambulatory dysfunction Underlying dementia Admitting imagings: Right hip x-ray: Suspicion of comminuted intertrochanteric femoral fracture. Right femur x-ray: Acute impacted and angulated intertrochanteric fracture of the right femur Pelvic CT: Acute intertrochanteric fracture of the right femur. Right hand x-ray And wrist: Subtle lucent line at the radial styloid process raising the possibility of undisplaced fracture. A few bony chips are seen along the lateral aspect of the wrist. Appreciate Ortho input and recommendation. Status postRight femur cephalomedullary fixation 08/25, Wrist braces x right wrist. Pain is controlled with occasional use of narcotic pain medications- we will try to limit the use of narcotics as it causes more drowsiness High risk of delirium. Delirium precautions, Zyprexa as needed agitation Lovenox as DVT prophylaxis. Monitor H&H, transfuse for hemoglobin less than 7 or for symptomatic anemia. Has been getting PT and OT and awaiting placement Nutritional status Has not been able to eat or drink or even take medications orally As per the he is not yet at his baseline He will need 1 or 2 more days for improvement of his general condition and wellbeing Febrile episodes, ro infxn vs post op fever :/3 to 08/27 overnight with fever episodes. 08/27 Urine analysis - neg for UTI though appeared dirty, will await Urine Cx. 08/27 chest x-ray w/ left lung opacity, ? infectious process, 08/27 procalcitonin elevated compared to admitting procal 08/27 Bl Cx, ng24hr, follow c/s. Started Rocephin 08/27, temperature slowly getting better. c/w atb for now, f/u on blood culture. Vit D def: started on ergo 1.25 mg q7d on 08/26. continue. Hypertensive urgency: Likely secondary to acute distress. Continue with home blood pressure medication, as needed IV blood pressure medications to help blood pressures to control. Acute on chronic anemia, Hemoglobin drop from baseline possibly from blood loss secondary to trauma. Monitor, transfuse for Hb < 7 or for symptomatic anemia. Hb stable today. Other chronic medical conditions: Continue with/resume home meds as and when able. CAD SSS s/p PPM off Coumadin due to fall risk, device battery reaching recommended replacement time as of last remote transmission as per outpatient cardiology note 08/19. No benefit from battery replacement as per discussion with outpatient cardiology provider as per . Valvular heart disease (mild , moderate MR/TR, TTE 2023) NSVT hyperlipidemia currently not on statin Rx seizure disorder, on Keppra Rx, will change to iv keppra due inconsistency of oral intake, d/w pharmacy 08/25, renally dose iv keppra hx NAFLD history upper extremity DVT as per records hypothyroidism, TSH markedly elevated at 16, Increase current levothyroxine dose from 88 mcg to 100 mcg daily, recheck outpatient TSH after 6 weeks. GOC discussion: Patient family cognizant that patient's quality of life has been on steady decline due to progressive dementia over the last 6 months. Family aware of high likelihood of poor consequences of hospitalization and surgery and accept the facts. For now plan is for Sx after d/w family, will continue to monitor. Possible palliative involvement inpatient vs outpatient. DVT prophylaxis. lovenox DNR PT/OT, CM to assist w/ dc plan. Patient Ms. Daria Story, contact #[phone]. Updated at bedside. Again updated at bedside today Text document was generated using [employer] voice recognition software. It may contain grammatical or spelling errors. Kindly contact undersigned for clarification of any documentation item in question. Admission and Anticipated Discharge Date Admission Date: August 24, 2024 Subjective 08/29/2024 The patient was seen and examined in medical telemetry unit in presence of the He is resting in bed and did not want to talk and this happens following any narcotic pain medications He has not been able to take medications orally and has not been able to eat and drink normally Not yet ready to be transferred to a rehab facility yet Review of Systems Review of Systems: Unobtainable due to cognitive status Physical Exam Physical Exam: Lying in bed without any acute distress Constitutional: well developed, well nourished, + ill appearing and + obese Eyes: PERRL, conjunctivae normal, anicteric sclerae ENMT: external ear and nose normal, oropharynx normal Neck: trachea midline, no thyromegaly Respiratory: no respiratory distress Auscultation: + diminished lung sounds and + crackles ( Minimal crackles at the bases) Cardiovascular: Rate/Rhythm: regular rate and regular rhythm; not tachycardic Heart Sounds: normal S1 and normal S2; no murmur Extremities: no edema Gastrointestinal (Abdomen): Inspection/Auscultation: normal bowel sounds; abdomen not distended Percussion/Palpation: abdomen soft; abdomen nontender Musculoskeletal: No acute arthritis involving any of the joints Lymphatic: no cervical or axillary lymphadenopathy Results & Data Results & Data Vital Signs (Past 12 Hours) Vital Signs Temp Pulse Pulse Resp BP Pulse Ox O2 Del Method 08/29/24 11:40 37.1 C 65 121/41 L 97 Room Air 08/29/24 07:31 37.5 C 68 18 168/68 H 97 Room Air 08/29/24 07:08 68 08/29/24 04:23 175/76 H 08/29/24 03:21 36.8 C 83 19 171/77 H 96 Room Air Laboratory Results Short CBC 08/28/24 08/29/24 Range/Units 20:25 05:30 WBC 7.95 (4.8-10.8) K/ul Hgb 8.2 L 8.2 L (14.0-18.0) g/dl Hct 25.2 L 25.0 L (42.0-52.0) % Plt Count 205 (130-400) K/uL BMP 08/29/24 05:30 Sodium 146 H Potassium 3.1 L Chloride 112 H Carbon Dioxide 25 BUN 31 H Creatinine 0.99 Glucose 88 Calcium 8.3 L Medications Administered Current Inpatient Medications Acetaminophen (Acetaminophen 500 Mg Tab) 500 mg PO Q6H PRN PRN Reason: fever/pain Stop: 09/23/24 05:14 Last Admin: 08/29/24 07:31 Dose: 500 mg Amiodarone HCl (Amiodarone 200 Mg Tab) 100 mg PO QAM [facility] Stop: 09/23/24 08:59 Last Admin: 08/29/24 07:29 Dose: 100 mg Bisacodyl (Bisacodyl 10 Mg Supp) 10 mg [place] DAILY PRN PRN Reason: Constipation Stop: 09/23/24 02:05 Enoxaparin Sodium (Enoxaparin Inj 40 Mg/0.4 Ml Syr) [facility] [place] [facility] Stop: 09/26/24 08:59 Last Admin: 08/29/24 07:27 Dose: 40 mg Ergocalciferol (Ergocalciferol 1250 Mcg (50,000 Units) Cap) 1,250 mcg PO Q7D@0900 [facility] Stop: 09/25/24 16:44 Last Admin: 08/26/24 17:50 Dose: 1,250 mcg Finasteride (Finasteride 5 Mg Tab) 5 mg [facility] [place] Stop: 09/23/24 08:59 Last Admin: 08/29/24 07:29 Dose: 5 mg Hydralazine HCl (Hydralazine Hcl 20 Mg/Ml Vial) 5 mg IV Q4H PRN PRN Reason: Hypertension Stop: 09/24/24 14:55 Last Admin: 08/29/24 04:34 Dose: 5 mg Promethazine HCl (Phenergan) 6.25 mg in 50.25 mls @ 201 mls/hr IV Q6H PRN PRN Reason: Nausea And Vomiting Stop: 09/23/24 02:04 Ceftriaxone Sodium (Rocephin) 1,000 mg in 50 mls @ 100 mls/hr IV Q24H [facility] Stop: 09/01/24 11:44 Last Infusion: 08/29/24 12:17 Dose: Infused Acetaminophen (Ofirmev) 1,000 mg in 100 mls @ 400 mls/hr IV Q8H PRN PRN Reason: if pt doesn't take po tyelenol Stop: 08/30/24 14:24 Last Infusion: 08/27/24 17:57 Dose: Infused Lactobacillus Acidophilus (Advanced Probiotic 625 Mg Capsule) 1,250 mg PO DAILY [facility] Stop: 09/27/24 08:59 Last Admin: 08/29/24 07:29 Dose: 1,250 mg Levetiracetam (Levetiracetam 500 Mg/5 Ml Vial) 750 mg IV BID [facility] Stop: 09/24/24 20:59 Last Admin: 08/29/24 07:27 Dose: 750 mg Levothyroxine Sodium (Levothyroxine Sodium 100 Mcg Tablet) 100 mcg PO DAILYBB [facility] Stop: 09/23/24 06:29 Last Admin: 08/29/24 06:06 Dose: 100 mcg Losartan Potassium (Losartan Potassium 50 Mg Tab) 50 mg PO QAM [facility] Stop: 09/23/24 08:59 Last Admin: 08/29/24 07:30 Dose: 50 mg Metoprolol Succinate (Metoprolol Succ 50mg Ext Rel Tab) 100 mg PO QAM [facility] Stop: 09/23/24 08:59 Last Admin: 08/29/24 07:28 Dose: 100 mg Mirtazapine (Mirtazapine Tab 15 Mg Tab) 30 mg PO QPM [facility] Stop: 09/23/24 20:59 Last Admin: 08/28/24 21:00 Dose: 30 mg Morphine Sulfate (Morphine Sulfate 2 Mg/Ml Carp) 2 mg IV Q3H PRN PRN Reason: Pain Stop: 09/07/24 02:04 Last Admin: 08/29/24 09:27 Dose: 2 mg Morphine Sulfate (Morphine Sulfate 10 Mg/0.5 Ml Udp) 5 mg PO DAILY [facility] Stop: 09/07/24 08:59 Last Admin: 08/29/24 07:24 Dose: 5 mg Naloxone HCl (Naloxone Hcl 0.4 Mg/1 Ml Vial/Carp) 0.1 mg IV UD PRN PRN Reason: Opiate Overdose Stop: 09/23/24 02:05 Levetiracetam Er [id number] Patient's Own Med 1 each PO HS [facility] Stop: 09/23/24 20:59 Last Admin: 08/24/24 19:51 Dose: 1 tab Levetiracetam Er 750mg--Non-Formulary Patient's Own Med 2 each PO HS [facility] Stop: 09/23/24 20:59 Last Admin: 08/24/24 19:51 Dose: 2 tab Olanzapine (Olanzapine 10 Mg/2.1 Ml Sdv) 2.5 mg IM Q4H PRN PRN Reason: Agitation Stop: 09/23/24 01:06 Olanzapine (Olanzapine 2.5 Mg Tab) 2.5 mg PO HS [facility] Stop: 09/23/24 20:59 Last Admin: 08/28/24 21:00 Dose: 2.5 mg Oxycodone HCl (Oxycodone Hcl Ir 5 Mg Tab (Immediate Release)) 5 mg PO Q4H PRN PRN Reason: Pain Stop: 09/07/24 02:04 Last Admin: 08/27/24 06:11 Dose: 5 mg Polyethylene Glycol (Polyethylene (Miralax) 17 Gm Pack) 17 gm PO Q24H PRN PRN Reason: Constipation Stop: 09/23/24 03:10 Last Admin: 08/29/24 07:43 Dose: 17 gm Potassium Phosphate (Pot Phosphate Monobasic W/ Sod Tab) 1 tab PO Q8H [facility] Stop: 08/30/24 00:31 Last Admin: 08/29/24 09:27 Dose: 1 tab Sennosides (Senna 8.6 Mg Tab) 17.2 mg PO [facility] Stop: 09/23/24 20:59 Last Admin: 08/28/24 21:01 Dose: 17.2 mg
[2024-08-30 08:11] LABS: Basophils # (auto) 0.06 K/uL (0.00-0.20); Basophils % (auto) 0.8 %; Eosinophils % (auto) 4.1 %; Hematocrit (blood only) 27.1 % (42.0-52.0); Hemoglobin 8.9 g/dl (14.0-18.0); Immature Granulocytes # (auto) 0.04 K/uL (0.01-0.20); Immature Granulocytes % (auto) 0.6 %; Lymphocytes # (auto) 1.41 K/uL (1.20-3.40); Lymphocytes % (auto) 19.4 %; Mean Corpuscular Hemoglobin 32.1 pg (25.0-34.0); Mean Corpuscular Hgb Conc 32.8 g/dL (32.0-36.0); Mean Corpuscular Volume 97.8 fL (80.0-100.0); Mean Platelet Volume 10.8 fL (9.4-12.4); Monocytes # (auto) 0.65 K/uL (0.11-0.59); Neutrophils % (auto) 66.1 %; Platelet Count 245 K/uL (130-400); RDW Coefficient of Variation 13.3 % (11.5-14.5); RDW Standard Deviation 47.9 fL (36.4-46.3); Red Blood Count 2.77 M/uL (4.70-6.10); White Blood Count 7.26 K/ul (4.8-10.8)
[2024-08-30 08:17] LABS: Calcium 8.5 mg/dl (8.6-10.3); Magnesium 2.1 mg/dl (1.7-2.4); Potassium 3.2 mmol/L (3.5-5.1)
[2024-08-30 08:22] LABS: BUN Creatinine Ratio 32.6 (10-20); Creatinine Clr Calc Pharmacy 53.6 ml/min
--- NOTE | 2024-08-30 12:25 | Orthopedic Progress Note ---
Date of Service August 30, 2024 Assessment & Plan (1) Intertrochanteric fracture of right hip: (2) Fracture of right distal radius: (3) PAF (paroxysmal atrial fibrillation): (4) Asymptomatic hypertensive urgency: (5) Alzheimer's dementia: (6) CHF (congestive heart failure): (7) Elevated troponin: (8) Syncope and collapse: Plan Patient doing well postoperative day #5 status post right hip cephalomedullary nailing. He may bear weight as tolerated. Unfortunately, the patient has not been keeping his wrist brace on for his minimally displaced right distal radius fracture, I did consider placing the patient in a cast, however due to his combativeness and mental state, this could be more dangerous. Would recommend continuing to attempt to keep wrist brace on, which it seems like he has done for the past two days. Would recommend platform weightbearing on the right upper extremity, however patient is unlikely to comply with this. Okay for anticoagulation from orthopedic standpoint. Weightbearing as tolerated right lower extremity. Patient will follow-up with me in 2 weeks for wound check. Vitamin D labs demonstrate level of 20.5. being repleted. Admission and Anticipated Discharge Date Admission Date: August 24, 2024 Subjective resting comfortably Review of Systems Review of Systems: Unobtainable due to cognitive status Physical Exam Physical Exam: dressings c/d/i. wrist brace on Results & Data Vital Signs (Past 12 Hours) Vital Signs Temp Pulse Pulse Resp BP Pulse Ox O2 Del Method 08/30/24 11:33 Room Air 08/30/24 11:07 36.1 C L 72 16 138/65 95 Room Air 08/30/24 07:04 36.8 C 89 18 166/66 H 99 Room Air 08/30/24 05:53 89 08/30/24 04:08 60 08/30/24 02:47 36.9 C 68 16 160/69 H 96 Room Air (5) Alzheimer's dementia Alzheimer's disease onset: unspecified onset (6) CHF (congestive heart failure) Heart failure type: unspecified Heart failure chronicity: chronic Qualified Code(s): I50.9 - Heart failure, unspecified
--- NOTE | 2024-08-30 13:45 | Hospitalist Progress Note ---
Date of Service August 30, 2024 Assessment & Plan (1) Intertrochanteric fracture of right hip: Plan 89-year-old male with PMH of CAD, SSS s/p PPM off of Coumadin due to fall risk, NSVT, HTN, HLD, seizure disorder, dementia, NAFLD, chronic anemia [baseline hemoglobin of 12], upper extremity DVT, hypothyroidism, BPH, GERD, skin cancer who is a resident of [facility] care unit [since February 2024 due to progressive dementia] was found on the floor of his room complaining of right hip pain prior to arrival, noted to have acute fracture of right femur. He is being managed for the following: Right hip fracture Right wrist fracture History of ambulatory dysfunction Underlying dementia Admitting imagings: Right hip x-ray: Suspicion of comminuted intertrochanteric femoral fracture. Right femur x-ray: Acute impacted and angulated intertrochanteric fracture of the right femur Pelvic CT: Acute intertrochanteric fracture of the right femur. Right hand x-ray And wrist: Subtle lucent line at the radial styloid process raising the possibility of undisplaced fracture. A few bony chips are seen along the lateral aspect of the wrist. Appreciate Ortho input and recommendation. Status postRight femur cephalomedullary fixation 08/25, Wrist braces x right wrist. Pain is controlled with occasional use of narcotic pain medications- we will try to limit the use of narcotics as it causes more drowsiness High risk of delirium. Delirium precautions, Zyprexa as needed agitation Lovenox as DVT prophylaxis. Monitor H&H, transfuse for hemoglobin less than 7 or for symptomatic anemia. Has been getting PT and OT and awaiting placement Will try to avoid any narcotic pain medications and try Tylenol for pain Seems to be more alert and awake today Nutritional status Has not been able to eat or drink or even take medications orally As per the he is not yet at his baseline He will need 1 or 2 more days for improvement of his general condition and wellbeing More conversive today and eating when fed by the Febrile episodes, ro infxn vs post op fever :/3 to 08/27 overnight with fever episodes. 08/27 Urine analysis - neg for UTI though appeared dirty, will await Urine Cx. 08/27 chest x-ray w/ left lung opacity, ? infectious process, 08/27 procalcitonin elevated compared to admitting procal 08/27 Bl Cx, ng24hr, follow c/s. Started Rocephin 08/27, temperature slowly getting better. c/w atb for now, f/u on blood culture. Repeat blood cultures have been negative Vit D def: started on ergo 1.25 mg q7d on 08/26. continue. Hypertensive urgency: Likely secondary to acute distress. Continue with home blood pressure medication, as needed IV blood pressure medications to help blood pressures to control. Acute on chronic anemia, Hemoglobin drop from baseline possibly from blood loss secondary to trauma. Monitor, transfuse for Hb < 7 or for symptomatic anemia. Hemoglobin remains stable at 8.9 as of 08/30/2024 Other chronic medical conditions: Continue with/resume home meds as and when able. CAD SSS s/p PPM off Coumadin due to fall risk, device battery reaching recommended replacement time as of last remote transmission as per outpatient cardiology note 08/19. No benefit from battery replacement as per discussion with outpatient cardiology provider as per . Valvular heart disease (mild , moderate MR/TR, TTE 2023) NSVT hyperlipidemia currently not on statin Rx seizure disorder, on Keppra Rx, will change to iv keppra due inconsistency of oral intake, d/w pharmacy 08/25, renally dose iv keppra hx NAFLD history upper extremity DVT as per records hypothyroidism, TSH markedly elevated at 16, Increase current levothyroxine dose from 88 mcg to 100 mcg daily, recheck outpatient TSH after 6 weeks. GOC discussion: Patient family cognizant that patient's quality of life has been on steady decline due to progressive dementia over the last 6 months. Family aware of high likelihood of poor consequences of hospitalization and surgery and accept the facts. For now plan is for Sx after d/w family, will continue to monitor. Possible palliative involvement inpatient vs outpatient. DVT prophylaxis. lovenox DNR PT/OT, CM to assist w/ dc plan. Patient Ms. Daria Story, contact #[phone]. Updated at bedside. Again updated at bedside today 08/30/2024 Text document was generated using [employer] voice recognition software. It may contain grammatical or spelling errors. Kindly contact undersigned for clarification of any documentation item in question. Admission and Anticipated Discharge Date Admission Date: August 24, 2024 Subjective 08/29/2024 The patient was seen and examined in medical telemetry unit in presence of the He is resting in bed and did not want to talk and this happens following any narcotic pain medications He has not been able to take medications orally and has not been able to eat and drink normally Not yet ready to be transferred to a rehab facility yet 08/30/2024 The patient was seen and examined in medical telemetry unit in presence of the He is much alert and awake today and has been eating if fed Remains pleasantly confused and denies any significant pain Review of Systems Review of Systems: Unobtainable due to cognitive status Physical Exam Physical Exam: Lying in bed without any acute distress Constitutional: well developed, well nourished, + ill appearing and + obese Eyes: PERRL, conjunctivae normal, anicteric sclerae ENMT: external ear and nose normal, oropharynx normal Neck: trachea midline, no thyromegaly Respiratory: no respiratory distress Auscultation: + diminished lung sounds and + crackles ( Minimal crackles at the bases) Cardiovascular: Rate/Rhythm: regular rate and regular rhythm; not tachycardic Heart Sounds: normal S1 and normal S2; no murmur Extremities: no edema Gastrointestinal (Abdomen): Inspection/Auscultation: normal bowel sounds; abdomen not distended Percussion/Palpation: abdomen soft; abdomen nontender Lymphatic: no cervical or axillary lymphadenopathy Results & Data Results & Data Vital Signs (Past 12 Hours) Vital Signs Temp Pulse Pulse Resp BP Pulse Ox O2 Del Method 08/30/24 11:33 Room Air 08/30/24 11:07 36.1 C L 72 16 138/65 95 Room Air 08/30/24 07:04 36.8 C 89 18 166/66 H 99 Room Air 08/30/24 05:53 89 08/30/24 04:08 60 08/30/24 02:47 36.9 C 68 16 160/69 H 96 Room Air Laboratory Results Short CBC 08/30/24 Range/Units 07:32 WBC 7.26 (4.8-10.8) K/ul Hgb 8.9 L (14.0-18.0) g/dl Hct 27.1 L (42.0-52.0) % Plt Count 245 (130-400) K/uL BMP 08/30/24 07:32 Sodium 150 H Potassium 3.2 L Chloride 115 H Carbon Dioxide 25 BUN 31 H Creatinine 0.95 Glucose 87 Calcium 8.5 L Medications Administered Current Inpatient Medications Acetaminophen (Acetaminophen 500 Mg Tab) 500 mg PO Q6H PRN PRN Reason: fever/pain Stop: 09/23/24 05:14 Last Admin: 08/29/24 16:32 Dose: 500 mg Amiodarone HCl ([facility] 200 Mg Tab) [facility] [place] Stop: 09/23/24 08:59 Last Admin: 08/30/24 09:22 Dose: 100 mg Bisacodyl (Bisacodyl 10 Mg Supp) 10 mg [place] DAILY PRN PRN Reason: Constipation Stop: 09/23/24 02:05 Enoxaparin Sodium (Enoxaparin Inj 40 Mg/0.4 Ml Syr) [address] [facility] Stop: 09/26/24 08:59 Last Admin: 08/30/24 09:22 Dose: 40 mg Ergocalciferol (Ergocalciferol 1250 Mcg (50,000 Units) Cap) 1,250 mcg PO Q7D@0900 [facility] Stop: 09/25/24 16:44 Last Admin: 08/26/24 17:50 Dose: 1,250 mcg Finasteride (Finasteride 5 Mg Tab) [facility] [place] Stop: 09/23/24 08:59 Last Admin: 08/30/24 09:21 Dose: 5 mg Hydralazine HCl (Hydralazine Hcl 20 Mg/Ml Vial) 5 mg IV Q4H PRN PRN Reason: Hypertension Stop: 09/24/24 14:55 Last Admin: 08/29/24 23:16 Dose: 5 mg Promethazine HCl (Phenergan) 6.25 mg in 50.25 mls @ 201 mls/hr IV Q6H PRN PRN Reason: Nausea And Vomiting Stop: 09/23/24 02:04 Ceftriaxone Sodium (Rocephin) 1,000 mg in 50 mls @ 100 mls/hr IV Q24H [facility] Stop: 09/01/24 11:44 Last Infusion: 08/30/24 13:06 Dose: Infused Acetaminophen (Ofirmev) 1,000 mg in 100 mls @ 400 mls/hr IV Q8H PRN PRN Reason: if pt doesn't take po tyelenol Stop: 08/30/24 14:24 Last Infusion: 08/27/24 17:57 Dose: Infused Lactobacillus Acidophilus (Advanced Probiotic 625 Mg Capsule) 1,250 mg PO DAILY [facility] Stop: 09/27/24 08:59 Last Admin: 08/30/24 09:21 Dose: 1,250 mg Levetiracetam (Levetiracetam 500 Mg/5 Ml Vial 1000mg) 1,000 mg IV BID [facility] Stop: 09/29/24 20:59 Levothyroxine Sodium (Levothyroxine Sodium 100 Mcg Tablet) 100 mcg PO DAILYBB [facility] Stop: 09/23/24 06:29 Last Admin: 08/30/24 03:56 Dose: 100 mcg Losartan Potassium (Losartan Potassium 50 Mg Tab) 50 mg PO QAM [facility] Stop: 09/23/24 08:59 Last Admin: 08/30/24 09:23 Dose: 50 mg Metoprolol Succinate (Metoprolol Succ 50mg Ext Rel Tab) 100 mg PO QAM [facility] Stop: 09/23/24 08:59 Last Admin: 08/30/24 09:23 Dose: 100 mg Mirtazapine (Mirtazapine Tab 15 Mg Tab) 30 mg PO QPM [facility] Stop: 09/23/24 20:59 Last Admin: 08/29/24 21:24 Dose: 30 mg Morphine Sulfate (Morphine Sulfate 2 Mg/Ml Carp) 2 mg IV Q3H PRN PRN Reason: Pain Stop: 09/07/24 02:04 Last Admin: 08/30/24 03:56 Dose: 2 mg Morphine Sulfate (Morphine Sulfate 10 Mg/0.5 Ml Udp) 5 mg PO DAILY [facility] Stop: 09/07/24 08:59 Last Admin: 08/30/24 10:50 Dose: Not Given Naloxone HCl (Naloxone Hcl 0.4 Mg/1 Ml Vial/Carp) 0.1 mg IV UD PRN PRN Reason: Opiate Overdose Stop: 09/23/24 02:05 Levetiracetam Er [id number] Patient's Own Med 1 each PO HS [facility] Stop: 09/23/24 20:59 Last Admin: 08/24/24 19:51 Dose: 1 tab Levetiracetam Er 750mg--Non-Formulary Patient's Own Med 2 each PO HS [facility] Stop: 09/23/24 20:59 Last Admin: 08/24/24 19:51 Dose: 2 tab Olanzapine (Olanzapine 10 Mg/2.1 Ml Sdv) 2.5 mg IM Q4H PRN PRN Reason: Agitation Stop: 09/23/24 01:06 Olanzapine (Olanzapine 2.5 Mg Tab) 2.5 mg PO [facility] Stop: 09/23/24 20:59 Last Admin: 08/29/24 21:24 Dose: 2.5 mg Oxycodone HCl (Oxycodone Hcl Ir 5 Mg Tab (Immediate Release)) 5 mg PO Q4H PRN PRN Reason: Pain Stop: 09/07/24 02:04 Last Admin: 08/30/24 06:06 Dose: 5 mg Polyethylene Glycol (Polyethylene (Miralax) 17 Gm Pack) 17 gm PO Q24H PRN PRN Reason: Constipation Stop: 09/23/24 03:10 Last Admin: 08/29/24 07:43 Dose: 17 gm Sennosides (Senna 8.6 Mg Tab) 17.2 mg PO [facility] Stop: 09/23/24 20:59 Last Admin: 08/29/24 21:24 Dose: 17.2 mg
[2024-08-30] MEDS: levETIRAcetam 500 MG/5 ML VIAL **1000mg IV SCH (19:52)
[2024-08-31] MEDS: hydrALAZINE HCL 20 MG/ML VIAL IV ONE (05:45)
[2024-08-31] MEDS: ENALAPRILAT 1.25 MG in DEXTROSE 5% 25 ML IV STA (06:34)
[2024-08-31] MEDS: hydrALAZINE HCL 25 MG TAB PO SCH (09:27)
--- NOTE | 2024-08-31 13:03 | Hospitalist Progress Note ---
Date of Service August 31, 2024 Assessment & Plan (1) Intertrochanteric fracture of right hip: Plan 89-year-old male with PMH of CAD, SSS s/p PPM off of Coumadin due to fall risk, NSVT, HTN, HLD, seizure disorder, dementia, NAFLD, chronic anemia [baseline hemoglobin of 12], upper extremity DVT, hypothyroidism, BPH, GERD, skin cancer who is a resident of [facility] care unit [since February 2024 due to progressive dementia] was found on the floor of his room complaining of right hip pain prior to arrival, noted to have acute fracture of right femur. He is being managed for the following: Right hip fracture Right wrist fracture History of ambulatory dysfunction Underlying dementia Admitting imagings: Right hip x-ray: Suspicion of comminuted intertrochanteric femoral fracture. Right femur x-ray: Acute impacted and angulated intertrochanteric fracture of the right femur Pelvic CT: Acute intertrochanteric fracture of the right femur. Right hand x-ray And wrist: Subtle lucent line at the radial styloid process raising the possibility of undisplaced fracture. A few bony chips are seen along the lateral aspect of the wrist. Appreciate Ortho input and recommendation. Status postRight femur cephalomedullary fixation 08/25, Wrist braces x right wrist. Pain is controlled with occasional use of narcotic pain medications- we will try to limit the use of narcotics as it causes more drowsiness High risk of delirium. Delirium precautions, Zyprexa as needed agitation Lovenox as DVT prophylaxis. Monitor H&H, transfuse for hemoglobin less than 7 or for symptomatic anemia. Has been getting PT and OT and awaiting placement Will try to avoid any narcotic pain medications and try Tylenol for pain Looks much better today and getting occasional agitation which is a sign of feeling good as per the He is out of bed on a chair and trying to feed himself Likely discharge tomorrow Nutritional status Has not been able to eat or drink or even take medications orally As per the he is not yet at his baseline He will need 1 or 2 more days for improvement of his general condition and wellbeing More conversive today and eating when fed by the Has been eating reasonably and trying to feed himself Febrile episodes, ro infxn vs post op fever :/ to 08/27 overnight with fever episodes. 08/27 Urine analysis - neg for UTI though appeared dirty, will await Urine Cx. 08/27 chest x-ray w/ left lung opacity, ? infectious process, 08/27 procalcitonin elevated compared to admitting procal 08/27 Bl Cx, ng24hr, follow c/s. Started Rocephin 08/27, temperature slowly getting better. c/w atb for now, f/u on blood culture. Repeat blood cultures have been negative Vit D def: started on ergo 1.25 mg q7d on 08/26. continue. Hypertensive urgency: Likely secondary to acute distress. Continue with home blood pressure medication, as needed IV blood pressure medications to help blood pressures to control. Acute on chronic anemia, Hemoglobin drop from baseline possibly from blood loss secondary to trauma. Monitor, transfuse for Hb < 7 or for symptomatic anemia. Hemoglobin remains stable at 8.9 as of 08/30/2024 Other chronic medical conditions: Continue with/resume home meds as and when able. CAD SSS s/p PPM off Coumadin due to fall risk, device battery reaching recommended replacement time as of last remote transmission as per outpatient cardiology note 08/19. No benefit from battery replacement as per discussion with outpatient cardiology provider as per . Valvular heart disease (mild , moderate MR/TR, TTE 2023) NSVT hyperlipidemia currently not on statin Rx seizure disorder, on Keppra Rx, will change to iv keppra due inconsistency of oral intake, d/w pharmacy 08/25, renally dose iv keppra hx NAFLD history upper extremity DVT as per records hypothyroidism, TSH markedly elevated at 16, Increase current levothyroxine dose from 88 mcg to 100 mcg daily, recheck outpatient TSH after 6 weeks. [facility] discussion: Patient family cognizant that patient's quality of life has been on steady decline due to progressive dementia over the last 6 months. Family aware of high likelihood of poor consequences of hospitalization and surgery and accept the facts. For now plan is for Sx after d/w family, will continue to monitor. Possible palliative involvement inpatient vs outpatient. DVT prophylaxis. lovenox DNR PT/OT, CM to assist w/ dc plan. Patient Ms. Daria Story, contact #[phone]. Updated at bedside. Again updated at bedside today 08/30/2024 Text document was generated using Dragon voice recognition software. It may contain grammatical or spelling errors. Kindly contact undersigned for clarification of any documentation item in question. Admission and Anticipated Discharge Date Admission Date: August 24, 2024 Subjective 08/29/2024 The patient was seen and examined in medical telemetry unit in presence of the He is resting in bed and did not want to talk and this happens following any narcotic pain medications He has not been able to take medications orally and has not been able to eat and drink normally Not yet ready to be transferred to a rehab facility yet 08/30/2024 The patient was seen and examined in medical telemetry unit in presence of the He is much alert and awake today and has been eating if fed Remains pleasantly confused and denies any significant pain 08/31/2024 The patient was seen and examined in medical telemetry unit in presence of the He has been feeling much better today and is out of bed on a chair Has been eating by himself with supervision Remains pleasantly confused secondary to dementia Review of Systems Review of Systems: Could not be reliably obtained secondary to dementia Physical Exam Physical Exam: Lying in bed without any acute distress Constitutional: well developed, well nourished, + ill appearing and + obese Eyes: PERRL, conjunctivae normal, anicteric sclerae ENMT: external ear and nose normal, oropharynx normal Neck: trachea midline, no thyromegaly Respiratory: no respiratory distress Auscultation: + diminished lung sounds and + crackles ( Minimal crackles at the bases) Cardiovascular: Rate/Rhythm: regular rate and regular rhythm; not tachycardic Heart Sounds: normal S1 and normal S2; no murmur Extremities: no edema Gastrointestinal (Abdomen): Inspection/Auscultation: normal bowel sounds; abdomen not distended Percussion/Palpation: abdomen soft; abdomen nontender Musculoskeletal: Moderate pain with movement of the right hip joint Neurologic: Generally weak. pleasantly confused from dementia Lymphatic: no cervical or axillary lymphadenopathy Results & Data Results & Data Vital Signs (Past 12 Hours) Vital Signs Temp Pulse Pulse Resp BP BP Pulse Ox 08/31/24 11:02 36.7 C 62 18 193/77 H 97 08/31/24 07:45 37.1 C 63 18 175/70 H 97 08/31/24 06:15 181/78 H 08/31/24 05:45 61 08/31/24 04:51 68 189/81 H 08/31/24 02:55 37.0 C 64 18 189/68 H 94 O2 Del Method 08/31/24 11:02 Room Air 08/31/24 07:45 Room Air 08/31/24 06:15 08/31/24 05:45 08/31/24 04:51 08/31/24 02:55 Room Air Medications Administered Current Inpatient Medications Acetaminophen (Acetaminophen 500 Mg Tab) 500 mg PO Q6H PRN PRN Reason: fever/pain Stop: 09/23/24 05:14 Last Admin: 08/29/24 16:32 Dose: 500 mg Amiodarone HCl (Amiodarone 200 Mg Tab) 100 mg PO QAM [facility] Stop: 09/23/24 08:59 Last Admin: 08/31/24 09:28 Dose: 100 mg Bisacodyl (Bisacodyl 10 Mg Supp) 10 mg WA DAILY PRN PRN Reason: Constipation Stop: 09/23/24 02:05 Enoxaparin Sodium (Enoxaparin Inj 40 Mg/0.4 Ml Syr) 40 mg SQ QAM [facility] Stop: 09/26/24 08:59 Last Admin: 08/31/24 09:04 Dose: 40 mg Ergocalciferol (Ergocalciferol 1250 Mcg (50,000 Units) Cap) 1,250 mcg PO Q7D@0900 [facility] Stop: 09/25/24 16:44 Last Admin: 08/26/24 17:50 Dose: 1,250 mcg Finasteride (Finasteride 5 Mg Tab) 5 mg PO QAM [facility] Stop: 09/23/24 08:59 Last Admin: 08/31/24 09:28 Dose: 5 mg Hydralazine HCl (Hydralazine Hcl 20 Mg/Ml Vial) 5 mg IV Q4H PRN PRN Reason: Hypertension Stop: 09/24/24 14:55 Last Admin: 08/31/24 02:59 Dose: 5 mg Hydralazine HCl (Hydralazine Hcl 25 Mg Tab) 25 mg PO TID [facility] Stop: 09/30/24 08:59 Last Admin: 08/31/24 12:47 Dose: Not Given Promethazine HCl (Phenergan) 6.25 mg in 50.25 mls @ 201 mls/hr IV Q6H PRN PRN Reason: Nausea And Vomiting Stop: 09/23/24 02:04 Ceftriaxone Sodium (Rocephin) 1,000 mg in 50 mls @ 100 mls/hr IV Q24H [facility] Stop: 09/01/24 11:44 Last Admin: 08/31/24 12:38 Dose: 100 mls/hr Lactobacillus Acidophilus (Advanced Probiotic 625 Mg Capsule) 1,250 mg PO DAILY [facility] Stop: 09/27/24 08:59 Last Admin: 08/31/24 09:05 Dose: 1,250 mg Levetiracetam (Levetiracetam 500 Mg/5 Ml Vial 1000mg) 1,000 mg IV BID [facility] Stop: 09/29/24 20:59 Last Admin: 08/31/24 09:05 Dose: 1,000 mg Levothyroxine Sodium (Levothyroxine Sodium 100 Mcg Tablet) 100 mcg PO DAILYBB [facility] Stop: 09/23/24 06:29 Last Admin: 08/31/24 05:45 Dose: 100 mcg Losartan Potassium (Losartan Potassium 50 Mg Tab) 50 mg PO QAM [facility] Stop: 09/23/24 08:59 Last Admin: 08/31/24 09:05 Dose: 50 mg Metoprolol Succinate (Metoprolol Succ 50mg Ext Rel Tab) 100 mg PO QAM [facility] Stop: 09/23/24 08:59 Last Admin: 08/31/24 09:05 Dose: 100 mg Mirtazapine (Mirtazapine Tab 15 Mg Tab) 30 mg PO QPM [facility] Stop: 09/23/24 20:59 Last Admin: 08/30/24 19:52 Dose: 30 mg Morphine Sulfate (Morphine Sulfate 2 Mg/Ml Carp) 2 mg IV Q3H PRN PRN Reason: Pain Stop: 09/07/24 02:04 Last Admin: 08/31/24 11:35 Dose: 2 mg Morphine Sulfate (Morphine Sulfate 10 Mg/0.5 Ml Udp) 5 mg PO DAILY [facility] Stop: 09/07/24 08:59 Last Admin: 08/31/24 10:02 Dose: Not Given Naloxone HCl (Naloxone Hcl 0.4 Mg/1 Ml Vial/Carp) 0.1 mg IV UD PRN PRN Reason: Opiate Overdose Stop: 09/23/24 02:05 Levetiracetam Er [id number] Patient's Own Med 1 each PO VERONIKA Stop: 09/23/24 20:59 Last Admin: 08/24/24 19:51 Dose: 1 tab Levetiracetam Er 750mg--Non-Formulary Patient's Own Med 2 each PO VERONIKA Stop: 09/23/24 20:59 Last Admin: 08/24/24 19:51 Dose: 2 tab Olanzapine (Olanzapine 10 Mg/2.1 Ml Sdv) 2.5 mg IM Q4H PRN PRN Reason: Agitation Stop: 09/23/24 01:06 Olanzapine (Olanzapine 2.5 Mg Tab) 2.5 mg PO VERONIKA Stop: 09/23/24 20:59 Last Admin: 08/30/24 19:52 Dose: 2.5 mg Oxycodone HCl (Oxycodone Hcl Ir 5 Mg Tab (Immediate Release)) 5 mg PO Q4H PRN PRN Reason: Pain Stop: 09/07/24 02:04 Last Admin: 08/30/24 19:52 Dose: 5 mg Polyethylene Glycol (Polyethylene (Miralax) 17 Gm Pack) 17 gm PO Q24H PRN PRN Reason: Constipation Stop: 09/23/24 03:10 Last Admin: 08/29/24 07:43 Dose: 17 gm Sennosides (Senna 8.6 Mg Tab) 17.2 mg PO VERONIKA Stop: 09/23/24 20:59 Last Admin: 08/30/24 19:52 Dose: 17.2 mg
[2024-09-01 06:38] LABS: Basophils # (auto) 0.05 K/uL (0.00-0.20); Basophils % (auto) 0.7 %; Eosinophils % (auto) 4.2 %; Hematocrit (blood only) 27.5 % (42.0-52.0); Hemoglobin 8.9 g/dl (14.0-18.0); Immature Granulocytes # (auto) 0.02 K/uL (0.01-0.20); Immature Granulocytes % (auto) 0.3 %; Lymphocytes # (auto) 1.11 K/uL (1.20-3.40); Lymphocytes % (auto) 15.5 %; Mean Corpuscular Hemoglobin 32.4 pg (25.0-34.0); Mean Corpuscular Hgb Conc 32.4 g/dL (32.0-36.0); Mean Platelet Volume 10.7 fL (9.4-12.4); Monocytes # (auto) 0.58 K/uL (0.11-0.59); Monocytes % (auto) 8.1 %; Neutrophils % (auto) 71.2 %; Platelet Count 258 K/uL (130-400); RDW Coefficient of Variation 13.6 % (11.5-14.5); RDW Standard Deviation 48.9 fL (36.4-46.3); Red Blood Count 2.75 M/uL (4.70-6.10); White Blood Count 7.16 K/ul (4.8-10.8)
[2024-09-01 06:57] LABS: BUN Creatinine Ratio 32.6 (10-20); Calcium 8.5 mg/dl (8.6-10.3); Creatinine Clr Calc Pharmacy 53.3 ml/min; Potassium 3.3 mmol/L (3.5-5.1)
[2024-09-01] MEDS ORDERED: POTASSIUM CHLORIDE / WTR 10 MEQ/100 ML PLCT IV SCH (08:15)
[2024-09-01] MEDS: POTASSIUM CHLORIDE CRTAB 20 MEQ TABCR PO STA (09:49)
--- NOTE | 2024-09-01 12:45 | Hospitalist Progress Note ---
Date of Service September 01, 2024 Assessment & Plan (1) Intertrochanteric fracture of right hip: Plan 89-year-old male with PMH of CAD, SSS s/p PPM off of Coumadin due to fall risk, NSVT, HTN, HLD, seizure disorder, dementia, NAFLD, chronic anemia [baseline hemoglobin of 12], upper extremity DVT, hypothyroidism, BPH, GERD, skin cancer who is a resident of [facility] care unit [since February 2024 due to progressive dementia] was found on the floor of his room complaining of right hip pain prior to arrival, noted to have acute fracture of right femur. He is being managed for the following: Right hip fracture Right wrist fracture History of ambulatory dysfunction Underlying dementia Admitting imagings: Right hip x-ray: Suspicion of comminuted intertrochanteric femoral fracture. Right femur x-ray: Acute impacted and angulated intertrochanteric fracture of the right femur Pelvic CT: Acute intertrochanteric fracture of the right femur. Right hand x-ray And wrist: Subtle lucent line at the radial styloid process raising the possibility of undisplaced fracture. A few bony chips are seen along the lateral aspect of the wrist. Appreciate Ortho input and recommendation. Status postRight femur cephalomedullary fixation 08/25, Wrist braces x right wrist. Pain is controlled with occasional use of narcotic pain medications- we will try to limit the use of narcotics as it causes more drowsiness High risk of delirium. Delirium precautions, Zyprexa as needed agitation Lovenox as DVT prophylaxis. Monitor H&H, transfuse for hemoglobin less than 7 or for symptomatic anemia. Has been getting PT and OT and awaiting placement Will try to avoid any narcotic pain medications and try Tylenol for pain Looks much better today and getting occasional agitation which is a sign of feeling good as per the He is out of bed on a chair and trying to feed himself Likely discharge tomorrow Will need fresh PT and OT note to apply for the placement Remains medically stable to be discharged Nutritional status Has not been able to eat or drink or even take medications orally As per the he is not yet at his baseline He will need 1 or 2 more days for improvement of his general condition and wellbeing More conversive today and eating when fed by the Has been eating reasonably and trying to feed himself Febrile episodes, ro infxn vs post op fever :12/312/3 to 08/27 overnight with fever episodes. 08/27 Urine analysis - neg for UTI though appeared dirty, will await Urine Cx. 08/27 chest x-ray w/ left lung opacity, ? infectious process, 08/27 procalcitonin elevated compared to admitting procal 08/27 Bl Cx, ng24hr, follow c/s. Started Rocephin 08/27, temperature slowly getting better. c/w atb for now, f/u on blood culture. Repeat blood cultures have been negative Vit D def: started on ergo 1.25 mg q7d on 08/26. continue. Hypertensive urgency: Likely secondary to acute distress. Continue with home blood pressure medication, as needed IV blood pressure medications to help blood pressures to control. Blood pressure remains stable with a slightly upper side at 160/57 today Acute on chronic anemia, Hemoglobin drop from baseline possibly from blood loss secondary to trauma. Monitor, transfuse for Hb < 7 or for symptomatic anemia. Hemoglobin remains stable at 8.9 as of 08/30/2024 Other chronic medical conditions: Continue with/resume home meds as and when able. CAD SSS s/p PPM off Coumadin due to fall risk, device battery reaching recommended replacement time as of last remote transmission as per outpatient cardiology note 08/19. No benefit from battery replacement as per discussion with outpatient cardiology provider as per . Valvular heart disease (mild , moderate MR/TR, TTE 2023) NSVT hyperlipidemia currently not on statin Rx seizure disorder, on Keppra Rx, will change to iv keppra due inconsistency of oral intake, d/w pharmacy 08/25, renally dose iv keppra hx NAFLD history upper extremity DVT as per records hypothyroidism, TSH markedly elevated at 16, Increase current levothyroxine dose from 88 mcg to 100 mcg daily, recheck outpatient TSH after 6 weeks. [facility] discussion: Patient family cognizant that patient's quality of life has been on steady decline due to progressive dementia over the last 6 months. Family aware of high likelihood of poor consequences of hospitalization and surgery and accept the facts. For now plan is for Sx after d/w family, will continue to monitor. Possible palliative involvement inpatient vs outpatient. DVT prophylaxis. lovenox DNR PT/OT, CM to assist w/ dc plan. Patient Ms. Daria Story, contact #[phone]. Updated at bedside. Again updated at bedside today 08/30/2024 Text document was generated using [employer] voice recognition software. It may contain grammatical or spelling errors. Kindly contact undersigned for clarification of any documentation item in question. Admission and Anticipated Discharge Date Admission Date: August 24, 2024 Subjective 08/29/2024 The patient was seen and examined in medical telemetry unit in presence of the He is resting in bed and did not want to talk and this happens following any narcotic pain medications He has not been able to take medications orally and has not been able to eat and drink normally Not yet ready to be transferred to a rehab facility yet 08/30/2024 The patient was seen and examined in medical telemetry unit in presence of the He is much alert and awake today and has been eating if fed Remains pleasantly confused and denies any significant pain 08/31/2024 The patient was seen and examined in medical telemetry unit in presence of the He has been feeling much better today and is out of bed on a chair Has been eating by himself with supervision Remains pleasantly confused secondary to dementia 09/01/2024 The patient was seen and examined in medical telemetry unit in presence of the He seems to be little bit agitated today and may have some pain involving the right hip Has been trying to eat by himself as much as he can Awaiting placement Review of Systems Review of Systems: Could not be reliably obtained secondary to dementia Physical Exam Physical Exam: Lying in bed without any acute distress Constitutional: well developed, well nourished, + ill appearing and + obese Eyes: PERRL, conjunctivae normal, anicteric sclerae ENMT: external ear and nose normal, oropharynx normal Neck: trachea midline, no thyromegaly Respiratory: no respiratory distress Auscultation: + diminished lung sounds and + crackles ( Minimal crackles at the bases) Cardiovascular: Rate/Rhythm: regular rate and regular rhythm; not tachycardic Heart Sounds: normal S1 and normal S2; no murmur Extremities: no edema Gastrointestinal (Abdomen): Inspection/Auscultation: normal bowel sounds; abdomen not distended Percussion/Palpation: abdomen soft; abdomen nontender Musculoskeletal: Still has pain involving the left hip with movement Neurologic: Pleasantly confusedmoves all extremities Lymphatic: no cervical or axillary lymphadenopathy Results & Data Results & Data Vital Signs (Past 12 Hours) Vital Signs Temp Pulse Pulse Resp BP BP Pulse Ox 09/01/24 11:30 36.8 C 77 18 160/57 H 97 09/01/24 10:27 09/01/24 07:33 36.7 C 69 18 140/80 91 09/01/24 07:30 77 09/01/24 02:53 36.6 C 60 16 158/74 H 95 09/01/24 00:53 O2 Del Method 09/01/24 11:30 Room Air 09/01/24 10:27 Room Air 09/01/24 07:33 Room Air 09/01/24 07:30 09/01/24 02:53 Room Air 09/01/24 00:53 Room Air Laboratory Results Short CBC 09/01/24 Range/Units 06:06 WBC 7.16 (4.8-10.8) K/ul Hgb 8.9 L (14.0-18.0) g/dl Hct 27.5 L (42.0-52.0) % Plt Count 258 (130-400) K/uL BMP 09/01/24 06:06 Sodium 149 H Potassium 3.3 L Chloride 116 H Carbon Dioxide 26 BUN 30 H Creatinine 0.92 Glucose 100 H Calcium 8.5 L Medications Administered Current Inpatient Medications Acetaminophen (Acetaminophen 500 Mg Tab) 500 mg PO Q6H PRN PRN Reason: fever/pain Stop: 09/23/24 05:14 Last Admin: 08/29/24 16:32 Dose: 500 mg Amiodarone HCl (Amiodarone 200 Mg Tab) 100 mg PO QAM [facility] Stop: 09/23/24 08:59 Last Admin: 09/01/24 07:58 Dose: 100 mg Bisacodyl (Bisacodyl 10 Mg Supp) 10 mg DC DAILY PRN PRN Reason: Constipation Stop: 09/23/24 02:05 Enoxaparin Sodium (Enoxaparin Inj 40 Mg/0.4 Ml Syr) 40 mg SQ QAM [facility] Stop: 09/26/24 08:59 Last Admin: 09/01/24 07:59 Dose: 40 mg Ergocalciferol (Ergocalciferol 1250 Mcg (50,000 Units) Cap) 1,250 mcg PO Q7D@0900 [facility] Stop: 09/25/24 16:44 Last Admin: 08/26/24 17:50 Dose: 1,250 mcg Finasteride (Finasteride 5 Mg Tab) 5 mg PO QAM [facility] Stop: 09/23/24 08:59 Last Admin: 09/01/24 07:59 Dose: 5 mg Hydralazine HCl (Hydralazine Hcl 20 Mg/Ml Vial) 5 mg IV Q4H PRN PRN Reason: Hypertension Stop: 09/24/24 14:55 Last Admin: 08/31/24 02:59 Dose: 5 mg Hydralazine HCl (Hydralazine Hcl 25 Mg Tab) 25 mg PO TID [facility] Stop: 09/30/24 08:59 Last Admin: 09/01/24 07:57 Dose: 25 mg Promethazine HCl (Phenergan) 6.25 mg in 50.25 mls @ 201 mls/hr IV Q6H PRN PRN Reason: Nausea And Vomiting Stop: 09/23/24 02:04 Lactobacillus Acidophilus (Advanced Probiotic 625 Mg Capsule) 1,250 mg PO DAILY [facility] Stop: 09/27/24 08:59 Last Admin: 09/01/24 07:58 Dose: 1,250 mg Levetiracetam (Levetiracetam 500 Mg/5 Ml Vial 1000mg) 1,000 mg IV BID [facility] Stop: 09/29/24 20:59 Last Admin: 09/01/24 07:59 Dose: 1,000 mg Levothyroxine Sodium (Levothyroxine Sodium 100 Mcg Tablet) 100 mcg PO DAILYBB [facility] Stop: 09/23/24 06:29 Last Admin: 09/01/24 07:57 Dose: 100 mcg Losartan Potassium (Losartan Potassium 50 Mg Tab) 50 mg PO QAM [facility] Stop: 09/23/24 08:59 Last Admin: 09/01/24 07:58 Dose: 50 mg Metoprolol Succinate (Metoprolol Succ 50mg Ext Rel Tab) 100 mg PO QAM [facility] Stop: 09/23/24 08:59 Last Admin: 09/01/24 07:58 Dose: 100 mg Mirtazapine (Mirtazapine Tab 15 Mg Tab) 30 mg PO QPM [facility] Stop: 09/23/24 20:59 Last Admin: 08/31/24 22:04 Dose: 30 mg Morphine Sulfate (Morphine Sulfate 2 Mg/Ml Carp) 2 mg IV Q3H PRN PRN Reason: Pain Stop: 09/07/24 02:04 Last Admin: 08/31/24 18:20 Dose: 2 mg Morphine Sulfate (Morphine Sulfate 10 Mg/0.5 Ml Udp) 5 mg PO DAILY [facility] Stop: 09/07/24 08:59 Last Admin: 09/01/24 08:02 Dose: 5 mg Naloxone HCl (Naloxone Hcl 0.4 Mg/1 Ml Vial/Carp) 0.1 mg IV UD PRN PRN Reason: Opiate Overdose Stop: 09/23/24 02:05 [place]iracetam Er [id number] Patient's Own Med 1 each PO HS VERONIKA Stop: 09/23/24 20:59 Last Admin: 08/24/24 19:51 Dose: 1 tab Levetiracetam Er 750mg--Non-Formulary Patient's Own Med 2 each PO HS [facility] Stop: 09/23/24 20:59 Last Admin: 08/24/24 19:51 Dose: 2 tab Olanzapine (Olanzapine 10 Mg/2.1 Ml Sdv) 2.5 mg IM Q4H PRN PRN Reason: Agitation Stop: 09/23/24 01:06 Olanzapine (Olanzapine 2.5 Mg Tab) 2.5 mg PO HS EVRONIK[facility] Stop: 09/23/24 20:59 Last Admin: 08/31/24 22:04 Dose: 2.5 mg Oxycodone HCl (Oxycodone Hcl Ir 5 Mg Tab (Immediate Release)) 5 mg PO Q4H PRN PRN Reason: Pain Stop: 09/07/24 02:04 Last Admin: 09/01/24 09:52 Dose: 5 mg Polyethylene Glycol (Polyethylene (Miralax) 17 Gm Pack) 17 gm PO Q24H PRN PRN Reason: Constipation Stop: 09/23/24 03:10 Last Admin: 08/29/24 07:43 Dose: 17 gm Sennosides (Senna 8.6 Mg Tab) 17.2 mg PO HS [facility]ON[facility] Stop: 09/23/24 20:59 Last Admin: 08/31/24 22:04 Dose: 17.2 mg
[2024-09-02 07:18] LABS: Creatinine Clr Calc Pharmacy 53.3 ml/min
[2024-09-02 08:33] VITALS: TEMP 98.1
--- NOTE | 2024-09-02 09:16 | Hospitalist Progress Note ---
Date of Service September 02, 2024 Assessment & Plan (1) Intertrochanteric fracture of right hip: Plan 89-year-old male with PMH of CAD, SSS s/p PPM off of Coumadin due to fall risk, NSVT, HTN, HLD, seizure disorder, dementia, NAFLD, chronic anemia [baseline hemoglobin of 12], upper extremity DVT, hypothyroidism, BPH, GERD, skin cancer who is a resident of [facility] care unit [since February 2024 due to progressive dementia] was found on the floor of his room complaining of right hip pain prior to arrival, noted to have acute fracture of right femur. He is being managed for the following: Right hip fracture Right wrist fracture History of ambulatory dysfunction Underlying dementia Admitting imagings: Right hip x-ray: Suspicion of comminuted intertrochanteric femoral fracture. Right femur x-ray: Acute impacted and angulated intertrochanteric fracture of the right femur Pelvic CT: Acute intertrochanteric fracture of the right femur. Right hand x-ray And wrist: Subtle lucent line at the radial styloid process raising the possibility of undisplaced fracture. A few bony chips are seen along the lateral aspect of the wrist. Appreciate Ortho input and recommendation. Status postRight femur cephalomedullary fixation 08/25, Wrist braces x right wrist. Pain is controlled with occasional use of narcotic pain medications- we will try to limit the use of narcotics as it causes more drowsiness High risk of delirium. Delirium precautions, Zyprexa as needed agitation Lovenox as DVT prophylaxis. Monitor H&H, transfuse for hemoglobin less than 7 or for symptomatic anemia. Has been getting PT and OT and awaiting placement Will try to avoid any narcotic pain medications and try Tylenol for pain Looks much better today and getting occasional agitation which is a sign of feeling good as per the He is out of bed on a chair and trying to feed himself Likely discharge tomorrow Will need fresh PT and OT note to apply for the placement Clinically much better and has been eating and drinking reasonably with some help Seems to be at his baseline as per the and he will be discharged today to the facility to continue with the rehab Nutritional status Has not been able to eat or drink or even take medications orally As per the he is not yet at his baseline He will need 1 or 2 more days for improvement of his general condition and wellbeing More conversive today and eating when fed by the Has been eating reasonably and trying to feed himself Febrile episodes, ro infxn vs post op fever : to 08/27 overnight with fever episodes. 08/27 Urine analysis - neg for UTI though appeared dirty, will await Urine Cx. 08/27 chest x-ray w/ left lung opacity, ? infectious process, 08/27 procalcitonin elevated compared to admitting procal 08/27 Bl Cx, ng24hr, follow c/s. Started Rocephin 08/27, temperature slowly getting better. c/w atb for now, f/u on blood culture. Repeat blood cultures have been negative Vit D def: started on ergo 1.25 mg q7d on 08/26. continue. Hypertensive urgency: Likely secondary to acute distress. Continue with home blood pressure medication, as needed IV blood pressure medi cations to help blood pressures to control. Blood pressure remains stable with a slightly upper side at 168/86 as of 09/02/2024 Acute on chronic anemia, Hemoglobin drop from baseline possibly from blood loss secondary to trauma. Monitor, transfuse for Hb < 7 or for symptomatic anemia. Hemoglobin remains stable at 8.9 as of 08/30/2024 Other chronic medical conditions: Continue with/resume home meds as and when able. CAD SSS s/p PPM off Coumadin due to fall risk, device battery reaching recommended replacement time as of last remote transmission as per outpatient cardiology note 08/19. No benefit from battery replacement as per discussion with outpatient cardiology provider as per . Valvular heart disease (mild , moderate MR/TR, TTE 2023) NSVT hyperlipidemia currently not on statin Rx seizure disorder, on Keppra Rx, will change to iv keppra due inconsistency of oral intake, d/w pharmacy 08/25, renally dose iv keppra hx NAFLD history upper extremity DVT as per records hypothyroidism, TSH markedly elevated at 16, Increase current levothyroxine dose from 88 mcg to 100 mcg daily, recheck outpatient TSH after 6 weeks. GOC discussion: Patient family cognizant that patient's quality of life has been on steady decline due to progressive dementia over the last 6 months. Family aware of high likelihood of poor consequences of hospitalization and surgery and accept the facts. For now plan is for Sx after d/w family, will continue to monitor. Possible palliative involvement inpatient vs outpatient. DVT prophylaxis. lovenox DNR PT/OT, CM to assist w/ dc plan. Patient Ms. Daria Story, contact #[phone]. Updated at bedside. Again updated at bedside today 09/02/2024 Text document was generated using [employer] voice recognition software. It may contain grammatical or spelling errors. Kindly contact undersigned for clarification of any documentation item in question. Admission and Anticipated Discharge Date Admission Date: August 24, 2024 Subjective 08/29/2024 The patient was seen and examined in medical telemetry unit in presence of the He is resting in bed and did not want to talk and this happens following any narcotic pain medications He has not been able to take medications orally and has not been able to eat and drink normally Not yet ready to be transferred to a rehab facility yet 08/30/2024 The patient was seen and examined in medical telemetry unit in presence of the He is much alert and awake today and has been eating if fed Remains pleasantly confused and denies any significant pain 08/31/2024 The patient was seen and examined in medical telemetry unit in presence of the He has been feeling much better today and is out of bed on a chair Has been eating by himself with supervision Remains pleasantly confused secondary to dementia 09/01/2024 The patient was seen and examined in medical telemetry unit in presence of the He seems to be little bit agitated today and may have some pain involving the right hip Has been trying to eat by himself as much as he can Awaiting placement 09/02/2024 The patient was seen and examined in medical telemetry unit in presence of the He has been much better and seems to be a little agitated which is quite usual for him Has been eating and drinking reasonably Remains pleasantly confused which is seems to be at his baseline Will be discharged to the rehab facility today Review of Systems Review of Systems: Could not be reliably obtained secondary to dementia Physical Exam Physical Exam: Lying in bed without any acute distress Constitutional: well developed, well nourished, + ill appearing and + obese Eyes: PERRL, conjunctivae normal, anicteric sclerae ENMT: external ear and nose normal, oropharynx normal Neck: trachea midline, no thyromegaly Respiratory: no respiratory distress Auscultation: + diminished lung sounds and + crackles ( Minimal crackles at the bases) Cardiovascular: Rate/Rhythm: regular rate and regular rhythm; not tachycardic Heart Sounds: normal S1 and normal S2; no murmur Extremities: no edema Gastrointestinal (Abdomen): Inspection/Auscultation: normal bowel sounds; abdomen not distended Percussion/Palpation: abdomen soft; abdomen nontender Lymphatic: no cervical or axillary lymphadenopathy Results & Data Results & Data Vital Signs (Past 12 Hours) Vital Signs Temp Pulse Pulse Resp BP Pulse Ox O2 Del Method 09/02/24 08:29 36.7 C 98 H 18 168/86 H 97 Room Air 09/02/24 06:59 79 09/02/24 03:35 37.4 C 72 18 169/76 H 99 Room Air 09/01/24 23:34 36.8 C 62 20 146/74 H 96 Room Air 09/01/24 21:50 67 Laboratory Results [facility] 09/02/24 05:45 Creatinine 0.92 Medications Administered Current Inpatient Medications Acetaminophen (Acetaminophen 500 Mg Tab) 500 mg PO Q6H PRN PRN Reason: fever/pain Stop: 09/23/24 05:14 Last Admin: 08/29/24 16:32 Dose: 500 mg Amiodarone HCl (Amiodarone 200 Mg Tab) 100 mg PO [facility] Stop: 09/23/24 08:59 Last Admin: 09/01/24 07:58 Dose: 100 mg Bisacodyl (Bisacodyl 10 Mg Supp) 10 mg [place] DAILY PRN PRN Reason: Constipation Stop: 09/23/24 02:05 Enoxaparin Sodium (Enoxaparin Inj 40 Mg/0.4 Ml Syr) [facility] Stop: 09/26/24 08:59 Last Admin: 09/01/24 07:59 Dose: 40 mg Ergocalciferol (Ergocalciferol 1250 Mcg (50,000 Units) Cap) 1,250 mcg PO Q7D@0900 [facility] Stop: 09/25/24 16:44 Last Admin: 08/26/24 17:50 Dose: 1,250 mcg Finasteride (Finasteride 5 Mg Tab) 5 mg PO QAM [facility] Stop: 09/23/24 08:59 Last Admin: 12/09/24 07:59 Dose: 5 mg Hydralazine HCl (Hydralazine Hcl 20 Mg/Ml Vial) 5 mg IV Q4H PRN PRN Reason: Hypertension Stop: 09/24/24 14:55 Last Admin: 08/31/24 02:59 Dose: 5 mg Hydralazine HCl (Hydralazine Hcl 25 Mg Tab) 25 mg PO TID [facility] Stop: 09/30/24 08:59 Last Admin: 09/01/24 20:24 Dose: 25 mg Promethazine HCl (Phenergan) 6.25 mg in 50.25 mls @ 201 mls/hr IV Q6H PRN PRN Reason: Nausea And Vomiting Stop: 09/23/24 02:04 Lactobacillus Acidophilus (Advanced Probiotic 625 Mg Capsule) 1,250 mg PO DAILY [facility] Stop: 09/27/24 08:59 Last Admin: 09/01/24 07:58 Dose: 1,250 mg Levetiracetam (Levetiracetam 500 Mg/5 Ml Vial 1000mg) 1,000 mg IV BID [facility] Stop: 09/29/24 20:59 Last Admin: 09/01/24 20:23 Dose: 1,000 mg Levothyroxine Sodium (Levothyroxine Sodium 100 Mcg Tablet) 100 mcg PO DAILYBB [facility] Stop: 09/23/24 06:29 Last Admin: 09/02/24 05:53 Dose: 100 mcg Losartan Potassium (Losartan Potassium 50 Mg Tab) 50 mg PO QAM [facility] Stop: 09/23/24 08:59 Last Admin: 09/01/24 07:58 Dose: 50 mg Metoprolol Succinate (Metoprolol Succ 50mg Ext Rel Tab) 100 mg PO QAM [facility] Stop: 09/23/24 08:59 Last Admin: 09/01/24 07:58 Dose: 100 mg Mirtazapine (Mirtazapine Tab 15 Mg Tab) 30 mg PO QPM [facility] Stop: 09/23/24 20:59 Last Admin: 09/01/24 20:24 Dose: 30 mg Morphine Sulfate (Morphine Sulfate 2 Mg/Ml Carp) 2 mg IV Q3H PRN PRN Reason: Pain Stop: 09/07/24 02:04 Last Admin: 08/31/24 18:20 Dose: 2 mg Morphine Sulfate (Morphine Sulfate 10 Mg/0.5 Ml Udp) 5 mg PO DAILY [facility] Stop: 09/07/24 08:59 Last Admin: 09/01/24 08:02 Dose: 5 mg Naloxone HCl (Naloxone Hcl 0.4 Mg/1 Ml Vial/Carp) 0.1 mg IV UD PRN PRN Reason: Opiate Overdose Stop: 09/23/24 02:05 Levetiracetam Er [id number] Patient's Own Med 1 each PO HS VERONIKA Stop: 09/23/24 20:59 Last Admin: 08/24/24 19:51 Dose: 1 tab Levetiracetam Er 750mg--Non-Formulary Patient's Own Med 2 each PO HS VERONIKA Stop: 09/23/24 20:59 Last Admin: 08/24/24 19:51 Dose: 2 tab Olanzapine (Olanzapine 10 Mg/2.1 Ml Sdv) 2.5 mg IM Q4H PRN PRN Reason: Agitation Stop: 09/23/24 01:06 Olanzapine (Olanzapine 2.5 Mg Tab) 2.5 mg PO [facility] Stop: 09/23/24 20:59 Last Admin: 09/01/24 20:25 Dose: 2.5 mg Oxycodone HCl (Oxycodone Hcl Ir 5 Mg Tab (Immediate Release)) 5 mg PO Q4H PRN PRN Reason: Pain Stop: 09/07/24 02:04 Last Admin: 09/02/24 06:18 Dose: 5 mg Polyethylene Glycol (Polyethylene (Miralax) 17 Gm Pack) 17 gm PO Q24H PRN PRN Reason: Constipation Stop: 09/23/24 03:10 Last Admin: 08/29/24 07:43 Dose: 17 gm Sennosides (Senna 8.6 Mg Tab) 17.2 mg PO [facility] Stop: 09/23/24 20:59 Last Admin: 09/01/24 20:23 Dose: 17.2 mg
[2024-09-02 11:32] VITALS: BP 145/65; RESP 16; O2SAT 99
[2024-09-02 13:58] VITALS: PULSE 60
--- NOTE | 2024-09-02 17:44 | Discharge Summary ---
Date of Service September 02, 2024 Admission HPI Per Admitting Provider History obtained from patient, family, and records. Limited history from patient secondary to dementia. Medical history significant for CAD, SSS status post PPM off Coumadin due to fall risk, valvular heart disease (mild , moderate MR/TR, TTE 2023), NSVT, hypertension, hyperlipidemia, seizure disorder, dementia, NAFLD, chronic anemia (baseline hemoglobin 12), history upper extremity DVT as per records, hypothy roidism, BPH, GERD, skin cancer as per records. Last confinement September 2023 for generalized weakness secondary to COVID-19 illness. Hematuria during confinement. 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 Outpatient specialist follow-up recommended. Patient transitioned to [facility] from home last February 2024 due to progressive dementia. Cardiology provider recommended discontinuing Coumadin due to recurrent falls/risk during last outpatient visit March 2024 as per . Appropriate function with 2 months remaining for battery/generator longevity on device interrogation at time of visit. Patient found on the floor of his room complaining of right hip pain last night. Right leg obviously shortened and rotated. Patient noted to have contusions of the right hand and ear as well. Patient unable to answer questions regarding headache, chest pain, SOB, syncope. Patient brought to the ER for evaluation. SBP 180s upon arrival at the ER. 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 Admission Exam Per Admitting Provider Physical Exam: GENERAL: Demented, agitated, no respiratory distress SKIN: Pallor, warm HEENT: Pale palpebral conjunctivae, no ptosis, dry buccal mucosa NECK : Supple, no tenderness CHEST : CTA, no tenderness HEART : RRR, systolic murmur ABDOMEN: Some distention, nontender EXTREMITIES : Right hip tenderness, tender right hand contusion NEUROLOGIC : Agitated, demented, no facial asymmetry, gait and stance not assessed Principal Diagnosis Intertrochanteric fracture of right hip s/p repair, hypertension, sick sinus syndrome status post pacemaker, seizure disorder, dementia Discharge Exam Lying in bed without any acute distress Constitutional well developed, well nourished, + ill appearing and + obese Eyes PERRL, conjunctivae normal, anicteric sclerae ENMT external ear and nose normal, oropharynx normal Neck trachea midline, no thyromegaly Respiratory no respiratory distress Auscultation: + diminished lung sounds and + crackles ( Minimal crackles at the bases) Cardiovascular Rate/Rhythm: regular rate and regular rhythm; not tachycardic Heart Sounds: normal S1 and normal S2; no murmur Extremities: no edema Gastrointestinal (Abdomen) Inspection/Auscultation: normal bowel sounds; abdomen not distended Percussion/Palpation: abdomen soft; abdomen nontender Lymphatic no cervical or axillary lymphadenopathy Discharge Data Allergies Allergy/AdvReac Type Severity Reaction Status Date / Time Iodinated Contrast Media Allergy Severe trouble Verified 08/24/24 01:31 breathing/hives Consultations 08/24/24 00:52 ED Decision to Admit Stat 08/24/24 02:05 Consult Orthopedic Surgery Routine 08/24/24 14:17 Consult Cardiology Routine Procedures Performed Operation Date: 08/25/24 08:20 Actual Procedures p Right femur cephalomedullary fixation with physician directed fluoroscopy less than 1 hour(Right) - Jarad Norton DO Ordered Studies 08/24/24 07:44 CT pelvis wo con Stat 08/25/24 FL hip RT 2-3V Routine Hospital Course (1) Intertrochanteric fracture of right hip: Plan 89-year-old male with PMH of CAD, SSS s/p PPM off of Coumadin due to fall risk, NSVT, HTN, HLD, seizure disorder, dementia, NAFLD, chronic anemia [baseline hemoglobin of 12], upper extremity DVT, hypothyroidism, BPH, GERD, skin cancer who is a resident of [facility] care unit [since February 2024 due to progressive dementia] was found on the floor of his room complaining of right hip pain prior to arrival, noted to have acute fracture of right femur. He is being managed for the following: Right hip fracture Right wrist fracture History of ambulatory dysfunction Underlying dementia Admitting imagings: Right hip x-ray: Suspicion of comminuted intertrochanteric femoral fracture. Right femur x-ray: Acute impacted and angulated intertrochanteric fracture of the right femur Pelvic CT: Acute intertrochanteric fracture of the right femur. Right hand x-ray And wrist: Subtle lucent line at the radial styloid process raising the possibility of undisplaced fracture. A few bony chips are seen along the lateral aspect of the wrist. Appreciate Ortho input and recommendation. Status postRight femur cephalomedullary fixation 08/25, Wrist braces x right wrist. Pain is controlled with occasional use of narcotic pain medications- we will try to limit the use of narcotics as it causes more drowsiness High risk of delirium. Delirium precautions, Zyprexa as needed agitation Lovenox as DVT prophylaxis. Monitor H&H, transfuse for hemoglobin less than 7 or for symptomatic anemia. Has been getting PT and OT and awaiting placement Will try to avoid any narcotic pain medications and try Tylenol for pain Looks much better today and getting occasional agitation which is a sign of feeling good as per the He is out of bed on a chair and trying to feed himself Likely discharge tomorrow Will need fresh PT and OT note to apply for the placement Clinically much better and has been eating and drinking reasonably with some help Seems to be at his baseline as per the and he will be discharged today to the facility to continue with the rehab Nutritional status Has not been able to eat or drink or even take medications orally As per the he is not yet at his baseline He will need 1 or 2 more days for improvement of his general condition and wellbeing More conversive today and eating when fed by the Has been eating reasonably and trying to feed himself Febrile episodes, ro infxn vs post op fever : to 08/27 overnight with fever episodes. 08/27 Urine analysis - neg for UTI though appeared dirty, will await Urine Cx. 08/27 chest x-ray w/ left lung opacity, ? infectious process, 08/27 procalcitonin elevated compared to admitting procal 08/27 Bl Cx, ng24hr, follow c/s. Started Rocephin 08/27, temperature slowly getting better. c/w atb for now, f/u on blood culture. Repeat blood cultures have been negative Vit D def: started on ergo 1.25 mg q7d on 08/26. continue. Hypertensive urgency: Likely secondary to acute distress. Continue with home blood pressure medication, as needed IV blood pressure medications to help blood pressures to control. Blood pressure remains stable with a slightly upper side at 168/86 as of 09/02/2024 Acute on chronic anemia, Hemoglobin drop from baseline possibly from blood loss secondary to trauma. Monitor, transfuse for Hb < 7 or for symptomatic anemia. Hemoglobin remains stable at 8.9 as of 08/30/2024 Other chronic medical conditions: Continue with/resume home meds as and when able. CAD SSS s/p PPM off Coumadin due to fall risk, device battery reaching recommended replacement time as of last remote transmission as per outpatient cardiology note 08/19. No benefit from battery replacement as per discussion with outpatient cardiology provider as per . Valvular heart disease (mild , moderate MR/TR, TTE 2023) NSVT hyperlipidemia currently not on statin Rx seizure disorder, on Keppra Rx, will change to iv keppra due inconsistency of oral intake, d/w pharmacy 08/25, renally dose iv keppra hx NAFLD history upper extremity DVT as per records hypothyroidism, TSH markedly elevated at 16, Increase current levothyroxine dose from 88 mcg to 100 mcg daily, recheck outpatient TSH after 6 weeks. GOC discussion: Patient family cognizant that patient's quality of life has been on steady decline due to progressive dementia over the last 6 months. Family aware of high likelihood of poor consequences of hospitalization and surgery and accept the facts. For now plan is for Sx after d/w family, will continue to monitor. Possible palliative involvement inpatient vs outpatient. DVT prophylaxis. lovenox DNR PT/OT, CM to assist w/ dc plan. Patient Ms. Daria Story, contact #[phone]. Updated at bedside. Again updated at bedside today 09/02/2024 Text document was generated using [employer] voice recognition software. It may contain grammatical or spelling errors. Kindly contact undersigned for clarification of any documentation item in question. Total Time Total Time Spent Total Time Spent (In Minutes): 40 minutes Discharge Plan Discharge Items Patient Disposition: Transfer Senior Living Fac Reason For Visit: HTN URG, R HIP FX Discharge Diagnosis: Intertrochanteric fracture of right hip s/p repair, hypertension, sick sinus syndrome status post pacemaker, seizure disorder, dementia Condition on Discharge: Fair Activity: As commented below Activity Comment: will need to continue physical therapy Non-emergency contact: Primary Care Provider Call non-emergency contact if: you have any medication questions and your symptoms worsen Follow-up/Referrals: Amina Henry Mira Loma [Primary Care Provider] - Diet: Regular Addtl Attending Provider Instructions: Please take precautions to avoid falls Continue physical therapy as advised Take your medications regularly Please Regular checkup with 's Pending Studies at Discharge: No Stand-Alone Forms: My [facility] Skilled Items Patient informed of condition?: Yes DNR: Yes Discharge Level of Care: Skilled Communicable Disease: No Discharge Prognosis: Stable Lines: None Urinary Catheter: Yes Medications and DC Order Prescriptions: New hydralazine 25 mg Tablet 25 mg PO TID Qty: 90 0RF enoxaparin [Lovenox] 40 mg/0.4 mL Syringe 40 mg subcut QAM Qty: 30 0RF morphine concentrate 100 mg/5 mL (20 mg/mL) Solution 5 mg PO Q8H PRN (Reason: Pain (Scale Score 7-10)) Qty: 15 0RF ergocalciferol (vitamin D2) 1,250 mcg (50,000 unit) Capsule 1,250 mcg PO Q7D@0900 Qty: 6 0RF Continued levothyroxine 88 mcg tablet 88 mcg PO DAILYBB nitroglycerin [Nitrostat] 0.4 mg Tablet, Sublingual 0.4 mg Sublingual .Q 5 MINUTES MDD 3 DOSES PRN (Reason: Chest Pain) Rx Instructions: EVERY 5 MIN X 3 FOR CP finasteride [Proscar] 5 mg tablet 5 mg PO QAM levetiracetam [Keppra XR] 500 mg tablet extended release 24 hr 500 mg PO HS Rx Instructions: TOTAL DOSE 2,000 MG---TAKE WITH 2-750 MG TABS levetiracetam [Keppra XR] 750 mg tablet extended release 24 hr 1,500 mg PO HS Rx Instructions: GIVE 2 TABLEWTS AT BEDYTIME WITH 500MG amiodarone 200 mg Tablet 200 mg PO QAM Rx Instructions: 1/2 tablet dose metoprolol succinate 100 mg tablet extended release 24 hr 100 mg PO QAM losartan 50 mg Tablet 50 mg PO QAM Qty: 30 0RF sennosides [senna] 8.6 mg Tablet 17.2 mg PO HS mirtazapine 30 mg tablet 30 mg PO QPM polyethylene glycol 3350 17 gram/dose Powder 17 g PO .EVERY 24 HOURS PRN (Reason: Constipation) olanzapine [Zyprexa] 2.5 mg tablet 2.5 mg PO HS ondansetron 4 mg Tablet,Disintegrating 4 mg PO Q8H PRN (Reason: NAUSEA;VOMITING) lorazepam [Lorazepam Intensol] 2 mg/mL Concentrate 0.5 mg PO Q4 PRN (Reason: ANXIETY/AGITATION) Rx Instructions: GIVE 0.25 ML DOSE acetaminophen 650 mg Suppository 650 mg MS Q6H PRN (Reason: Fever Or Pain) atropine sulfate (PF) 1 % Dropperette 2 drp .EVERY 1 HOUR PRN (Reason: EXCESSIVE SECRETIONS) Rx Instructions: DISSOLVE 2 DROPS BUCCALLY Discontinued morphine concentrate 20 mg/mL Syringe 5 mg PO DAILY Rx Instructions: GIVE 0.25 ML BY MOUTH 1 TIME A DAY FOR PAIN morphine concentrate 20 mg/mL Syringe 5 mg PO .EVERY 1 HOUR PRN (Reason: PAIN/DIFFICULTY BREATHING) Rx Instructions: GIVE 0.25 ML DOSE Discharge Orders: Discharge Order (Routine); Ordered 09/02/24 Ordered By: Fransisco Paul Admission Data Admit Date/Time: 08/24/24 02:04 Attending Provider: Fransisco Paul Admit Provider: Jadon Quintana Primary Care Provider: Amina Henry Mira Loma Other Providers: Amina Henry Mira Loma; Jadon Quintana; Jarad Norton Rishikesh Other Interventions: Discharge Summary Assessment (RN) Last Done: 09/02/24 10:52
== END 2024-09-02 14:16 | DRG 481 ==
LOC: ED 23:42 → SUATTDRO 08-24 02:04 → EDINP 08-24 02:04 → 2N 08-24 04:13